=== PATIENT | female | born 1955 | race Caucasian/White ===

== ENCOUNTER 2021-03-22 11:20 | Inpatient (IN) | payer OTHER, SELFPAY ==
[2021-03-22 11:21] VITALS: BP 141/85; PULSE 112; RESP 18; TEMP 36.4; O2SAT 99; BMI 20.5
--- NOTE | 2021-03-22 11:45 | EX.ED.UPPERE ---
HPI History of Present Illness Chief Complaint: Wound Informant: patient Onset/Context/Timing Onset: Days (2) Context: Gradual Onset (Spontaneous without injury) Timing: Continuous Quality of Pain: Throbbing Location: Left ring finger into hand and wrist Current Severity: Moderate Maximum Severity: Severe Worsened by: Movement, palpation Relieved by: Remaining still in leaving alone Associated Symptoms Associated Symptoms: Negative for Parasthesia, Weakness and Loss of Funtion Narrative Narrative: Patient is on chemotherapy for breast cancer. She went in for treatment today, her oncologist saw her hand and sent her to the ER out of concern. She states it started at her nail, just some pain and a little sore, she did not pull any skin off or injure her nail in any way, and over 2 days it progressed quickly to the base of her finger and now into her hand and wrist. She denies any fevers or chills, but she is feeling very malaised and worse than usual. [id number]. [facility] Medical History (Updated 03/22/21 @ 14:[address] Mikey Rosas MD) Breast cancer Home Medications ergocalciferol (vitamin D2) 1,250 mcg PO TH 03/22/21 [History Last Taken 03/18/21] Allergy/AdvReac Type Severity Reaction Status Date / Time No Known Allergies Allergy Verified 03/22/21 12:24 Social History Smoking Status: Light Smoker (<10/day) ROS ROS ED Constitutional Constitutional ED: Reports fatigue and malaise; Denies chills or fever(s) Eyes Eyes: Denies change in vision or diplopia ENT ENT ED: Denies rhinorrhea or sore throat Cardiovascular Cardiovascular: Denies chest pain or palpitations Respiratory/Chest Respiratory/Chest: Denies cough or dyspnea Gastrointestinal Gastrointestinal: Reports diarrhea; Denies abdominal pain, nausea or vomiting Genitourinary Genitourinary ED: Denies dysuria or hematuria Musculoskeletal Musculoskeletal: Denies back pain or neck pain Integumentary Denies abscess or rash Neurologic Neurologic: Denies headache(s), paresthesias or weakness Psychiatric Psychiatric: Denies anxiety or suicidal thoughts EXAM Physical Exam Const Vital Signs: 03/22/21 11:21 Temperature 97.5 F L Temperature Source Temporal Pulse Rate 112 H Respiratory Rate 18 Blood Pressure 141/85 H Blood Pressure Mean 103 Pulse Ox 99 Oxygen Delivery Method Room Air Positive well nourished and well developed General Appearance ED: well developed and NAD HEENT Reports moist mucous membranes normocephalic and atraumatic Eyes PERRL and EOMs intact bilaterally Neck full ROM and supple Resp normal respiratory effort and clear to auscultation bilaterally Cardio regular rate, regular rhythm and no murmurs GI non-tender and non-distended Auscultation: normoactive bowel sounds Palpation: soft Back/Spine no CVA tenderness General Back: other FROM Extremity Extremity Narrative: Extremely swollen left ring finger with bulla formation with some purpura within it, that spirals from the right side of the nail base all the way to the MCPJ, along with erythema that progresses to the dorsum of the hand from the ring finger, and into the wrist. Very limited range of motion of the ring finger which is held in mild flexion and limited range of motion of the wrist due to pain there. Good range of motion of other fingers relatively. General Extremety ED: Yes edema and tenderness; Negative for pulses abnormal General Extremity: edema; Negative for pulses abnormal Neuro oriented x3, CN's II-XII intact bilaterally and no sensory deficits noted Sensorium / Orientation: awake and alert Motor Exam: strength 5/5 throughout Skin no rashes or lesions noted and no wounds Skin Narrative: Very swollen left ring finger, bulla formation with fluid fluctuant within it. Appears to have started as a paronychia radial aspect, patient confirms pain started there. Possible abscess formation. Swelling limits exam. No abscess in hand or wrist, but cellulitis extends to the wrist area without epitrochlear lymphadenopathy. MDM MDM MDM Narrative Medical decision making narrative: The patient does not have eden cellulitis over her left wrist, so she was amenable to an arthrocentesis because she is having such a limited range of motion I wanted to rule out a septic arthritis given the hot hand and wrist. No fluid was able to be obtained. The paronychia was drained, large amount of purulent material. Given the bulla formation, immunocompromise state, and significant spread of this infection up toward the wrist, she was given vancomycin and plan will be to admit. She does not appear to be septic according to the blood work and her clinical appearance. However, she did develop a fever of 101.4 while she was here. This was treated, blood cultures were already obtained prior to starting vancomycin. Discussed also with Dr. Brown in addition to medicine team, who will consult. Procedures Other Procedures Procedure(s): Digital block left ring finger: 7 cc plain 1% lidocaine dorsal approach with isopropanol prep, good anesthesia obtained. No complications tolerated well. I&D left ring finger paronychia: After digital block as above, using a #11 blade, partial-thickness stab incision was made at the radial aspect base of the nail. Large amount of purulent material expressed, the entire contents of the bulla back to the MCP J contained purulent bloody material which was also expressed. Soaked afterwards, dressed, no space in order to pack. Tolerated well no complications. Arthrocentesis left wrist: 1 cc local 1% lidocaine plain after isopropanol prep, further chlorhexidine prep, dorsal approach through anesthetized area into the radiocarpal joint, no fluid aspirated. Needle withdrawn, bandage placed tolerated well no complications. Discharge Plan Dx/Rx/DC Orders Clinical Impression: Paronychia of left ring finger, Cellulitis of left hand, Acquired immunocompromised state, History of breast cancer Disposition Disposition: Acute Care [facility]
--- NOTE | 2021-03-22 12:25 | RAD_ITS ---
STUDY: X-RAY - LEFT HAND REASON FOR EXAM: Female, 65 years old. Severe pain. Wound overlying the fourth digit with redness and swelling. TECHNIQUE: 3 view(s) of the hand. COMPARISON: None. FINDINGS: Normal radiocarpal articulation. Normal distal radioulnar joint. Normal visualized carpal bones. Normal carpal articulations Normal carpometacarpal articulation of the thumb. Normal second through fifth carpometacarpal joints. Normal metacarpi. Normal metacarpophalangeal joint of the thumb. Normal interphalangeal joint of the thumb. Normal proximal and distal phalanges of the thumb. Normal metacarpophalangeal joints of the second through fifth fingers. Flexion deformity at the proximal interphalangeal joints of the fourth and fifth digits due to severe pain. Normal phalanges of the second through fifth fingers. Soft tissue swelling. RAD/Hand Min 3 Views IMPRESSION: Flexion deformity at the level of the proximal interphalangeal joints of the fourth and fifth digits. Soft tissue swelling. Electronically Signed: Dagoberto Goyal MD at 13:05 EST ,
[2021-03-22 12:30] LABS: Absolute Lymphocyte Count 0.44 X10^3/uL (0.83-4.51); Absolute Neutrophil Count 7.2 X10^3/uL (2.0-7.7); Basophil# 0.04 X10^3/uL; Basophil% 0.5 % (0-1); Hemoglobin 11.5 g/dL (12.0-15.0); Lymphocyte # 0.44 X10^3/ul (0.83-4.51); Lymphocyte % 5.3 % (19-41); Mean Corp Hgb Conc 34.8 g/dL (32-36); Mean Corpuscular Hgb 36.9 pg (27.0-32.0); Mean Corpuscular Volume 105.8 fL (81-99); Mean Platelet Vol. 10.3 fl (6.2-12.0); Monocyte# 0.59 X10^3/uL; Monocyte% 7.1 % (0-10); NRBC Flagged by Analyzer 0 % (0-5); Neutrophil # 7.23 X10^3/uL (2.7-7.7); Neutrophil % 86.4 % (47-70); POSITIVE DIFFERENTIAL YES; Platelet Count 158 K/mm3 (150-450); RBC Distribution Width CV 13.3 % (11.6-14.6); Red Blood Count 3.12 M/mm3 (4.2-5.4); White Blood Count 8.4 K/mm3 (4.4-11.0)
[2021-03-22 12:31] LABS: Differential Indicated SCAN CRITERIA MET
[2021-03-22 12:35] LABS: ALB/GLOB Ratio 0.9 RATIO (0.9-2.4); AST(SGOT) 16 U/L (15-37); Alanine Aminotransfer ALT/SGPT 29 U/L (13-56); Albumin, Serum 3.1 g/dL (3.2-5.0); Alkaline Phosphatase 82 U/L (45-117); Anion Gap 7 (5-15); BUN 15 mg/dL (7-18); BUN/Creat Ratio 28.9 RATIO (10-20); Calcium,Total 8.5 mg/dL (8.5-10.1); Chloride 101 mmol/L (98-107); Creatinine, Serum 0.52 mg/dL (0.55-1.02); EST Glomerular Filtration Rate 127 mL/min (>60); Est Glom Filt Rate - Afr Amer 153 mL/min (>60); Estimated Creatinine Clearance 87.58 ml/min; Globulin 3.5 g/dL (2.2-4.2); Glucose 128 mg/dL (74-106); Potassium 3.5 mmol/L (3.5-5.1); Protein, Total 6.6 g/dL (6.4-8.2); Sodium Level 131 mmol/L (136-145)
[2021-03-22 12:42] LABS: International Normalized Ratio 1.1; Prothrombin Time (Protime)PT. 13.2 SECONDS (11.7-14.9)
[2021-03-22 12:44] LABS: Partial Thromboplast Time 30.7 Seconds (24.1-36.2)
[2021-03-22 13:12] VITALS: BP 148/69; PULSE 106; RESP 18; TEMP 36.9; O2SAT 99
[2021-03-22] MEDS: Lidocaine 1% (20 ml mdv) 20 ML Vial INFILT (14:00)
[2021-03-22 14:50] VITALS: BP 137/92; PULSE 111; RESP 16; TEMP 38.6; O2SAT 98
--- NOTE | 2021-03-22 15:03 | NURSING ---
PAGED DR PRICE [phone], [phone]. CALLED OFFICE AND LEFT MESSAGE [phone]
--- NOTE | 2021-03-22 15:25 | NURSING ---
MED SURG NUAMAH PARONYCHIA, CELLULITIS LUE, IMMUNOCOMPRISED STATE, HX BR CA
--- NOTE | 2021-03-22 15:35 | CASEMGMT ---
RN CM to room to meet with patient for initial transition planning/care coordination assessment. DAVID MORENO introduced self and role at [facility]. Patient voices understanding and consents to assessment at this time. No visitors present. Patient is alert and oriented, sitting up on ER cart in no apparent distress and answers all questions appropriately. Care providers, pharmacy, and demographics verified/updated at this time. Admitting Dx: Paronychia, cellulitis LUE, immunocompromised states, Hx breast cancer PCP: None. [facility] Healthcare Provider Directory provided to patient. Specialists: Pritesh- oncology Preferred Pharmacy: [facility] Insurance: [employer] Prescription Benefit: None. Patient reports staff member at [facility] oncology office has assisted patient to obtain $4,000 prescription assistance through [employer] for the year of 2021. Living Will/HPOA: Patient denies having living will or HPOA. LNOK: Sister Laura Gonsalez Living Arrangements: Patient lives with roommate Lopez in second story apartment with 13 steps to enter the home with a handrail present. Patient states independent with ADLs prior to hospitalization. Patient is currently employed full-time at [employer]. Smoking/ETOH: Current smoker (1/2 ppd), denies ETOH use, reports smokes medical marijuana multiple times/week Transportation: Patient drives self and denies transportation concerns. DME/HHC/SNF: Patient denies having any DME in the home and denies need for DME at this time. Denies previous HHC or SNF stays Patient currently undergoing chemotherapy, last treatment 03/17/21. Patient has no concerns with going home at time of discharge. Patient asks about cost of medications at discharge and made aware RN CM will follow for prescription needs/resources. CM to follow for any discharge planning/needs. Patient voices no concerns/needs at this time. Advised patient to ask for CM if any questions/concerns/needs arise. Voices understanding. Plan: home
--- NOTE | 2021-03-22 15:38 | PCM.HP.STD ---
Documented by User: Kathy Rubin NP, [employer]IATE-C 03/22/21 16:24 HPI - General General Date of Admission: 03/22/21 HPI Narrative ERICA ALBERTO, is a 65 F who presents to the emergency room due to left hand wound. Patient states her left ring finger nail bed was sore 2 days ago. No noted injury. Patient states over 2 days her left hand became increasingly red and swollen and is now moving up her arm. She was seen by oncologist who referred her to the emergency room for further evaluation. She is on chemotherapy for breast cancer and states she has 4 treatments left. She denies prior infections or complications related to chemo. She denies fever, chills. She reports left hand pain. Reports general malaise. Denies drainage from left finger or hand. She reports a past medical history of breast cancer, undergoing chemotherapy as well as tobacco dependence. Denies other medical history. [facility] Medical History Breast cancer Port-A-Cath in place Smoker Home Medications ergocalciferol (vitamin D2) 1,250 mcg PO TH 03/22/21 [History Last Taken 03/18/21] Allergy/AdvReac Type Severity Reaction Status Date / Time No Known Allergies Allergy Verified 03/22/21 12:24 Family History (Updated 03/22/21 @ 15:49 by Kathy Rubin NP, [employer]IATE-C) Mother Cancer Father Cancer Surgical History H/O tubal ligation History of bunionectomy Social History (Updated 03/22/21 @ 16:13 by Kathy Rubin NP, COMM[employer]OCIATE-C) Smoking Status: Current every day smoker tobacco type: cigarettes alcohol intake: never substance use type: does not use ROS Constitutional Constitutional: Reports malaise; Denies change in weight, chills, fatigue, fever(s) or weakness Cardiovascular Cardiovascular: Denies chest pain, edema, lightheadedness, palpitations or syncope Respiratory/Chest Respiratory/Chest: Denies cough, dyspnea, productive cough, shortness of breath at rest, shortness of breath with exertion or wheezing Gastrointestinal Gastrointestinal: Denies abdominal pain, constipation, diarrhea, nausea or vomiting Genitourinary Genitourinary: Denies burning urination, difficulty urinating, dysuria, hematuria, urinary frequency, urinary incontinence or urinary urgency Musculoskeletal Musculoskeletal: Denies back pain, joint pain or muscle weakness Integumentary Integumentary: Reports other Details: Paronychia left ring finger, left hand redness and swelling ; Denies erythema, lesions or rash Neurologic Neurologic: Denies abnormal speech, confusion, dizziness, focal weakness, numbness, paresthesias, seizure-like activity or syncope Psychiatric Psychiatric: Denies anxiety or depression Hematologic/Lymphatic Hematologic/Lymphatic: Denies anemia, easy bleeding or easy bruising Allergic/Immunologic Allergic/Immunologic: Denies hives or asthma Vital Signs Vital Signs Vital Signs: 03/22/21 11:21 03/22/21 13:12 03/22/21 13:13 Temperature 97.5 F L 98.4 F Temperature Source Temporal Temporal Pulse Rate 112 H 106 H Respiratory Rate 18 18 Blood Pressure 141/85 H 148/69 H Blood Pressure Mean 103 95 Pulse Ox 99 99 Oxygen Delivery Method Room Air Room Air Room Air 03/22/21 14:50 Temperature 101.4 F H Temperature Source Temporal Pulse Rate 111 H Respiratory Rate 16 Blood Pressure 137/92 H Blood Pressure Mean 107 Pulse Ox 98 Oxygen Delivery Method Room Air Weight Weight: 112 lb Body Mass Index (BMI) 20.5 Physical Exam Const alert, oriented x3 and no apparent distress Orientation / Consciousness: awake, oriented to person, oriented to place and oriented to time Nutritional Appearance: cachectic HEENT normocephalic and moist oral mucous membranes Eyes PERRL, EOMs intact bilaterally and conjunctivae normal Neck no lymphadenopathy Resp normal respiratory effort and clear to auscultation bilaterally Cardio regular rhythm and no murmurs Rate: tachycardic Peripheral Pulses: pulses 2+ throughout GI normal to inspection, nondistended, normoactive bowel sounds, non-tender and non-distended Extremity normal to inspection Skin Skin Narrative: Left finger paronychia with left hand erythema, warmth and swelling as well as ring finger bulla formation. Lesions: no lesions Rashes: no rashes Trauma: no lacerations or abrasions Neuro CN's II-XII intact bilaterally, no focal motor deficits, no sensory deficits noted and deep tendon reflexes 2+ bilaterally Psych mental status grossly normal and affect normal Results Lab / Micro Data Result Diagrams: 03/22/21 12:10 03/22/21 12:10 Labs: Laboratory Results - last 24 hr 03/22/21 12:10: WBC 8.4, RBC 3.12 L, Hgb 11.5 L, Hct 33.0 L, MCV 105.8 H, MCH 36.9 H, MCHC 34.8, RDW Std Deviation 51.0 H, RDW Coeff of Eliseo 13.3, Plt Count 158, MPV 10.3, Immature Gran % (Auto) 0.700, Neut % (Auto) 86.4 H, Lymph % (Auto) 5.3 L, [place] % (Auto) 7.1, Eos % (Auto) 0.0, Baso % (Auto) 0.5, Absolute Neuts (auto) 7.2, Absolute Lymphs (auto) 0.44 L, Nucleated RBC % 0 03/22/21 12:10: PT 13.2, INR 1.1, APTT 30.7 03/22/21 12:10: Sodium 131 L, Potassium 3.5, Chloride 101, Carbon Dioxide 23.0, Anion Gap 7, BUN 15, Creatinine 0.52 L, Estim Creat Clear Calc 87.58, Est GFR (MDRD) Af Amer 153, Est GFR (MDRD) Non-Af 127, BUN/Creatinine Ratio 28.9 H, Glucose 128 H, Calcium 8.5, Total Bilirubin 1.40 H, AST 16, ALT 29, Alkaline Phosphatase 82, Total Protein 6.6, Albumin 3.1 L, Globulin 3.5, Albumin/Globulin Ratio 0.9 03/22/21 12:10: Lactic Acid 1.0 Radiology Impression Hand X-Ray 03/22/21 12:25 IMPRESSION: Flexion deformity at the level of the proximal interphalangeal joints of the fourth and fifth digits. Soft tissue swelling. Electronically Signed: Dagoberto Goyal MD at 13:05 EST , Assessment & Plan Assessment/Plan (1) Cellulitis of left hand: PLAN: 1. Sepsis secondary to left hand cellulitis, left ring finger paronychia-left wrist arthrocentesis performed in ER with no fluid aspirated. Hand x-ray with soft tissue swelling. Blood cultures and wound cultures pending from ER. IV Vanco and IV Zosyn. ID and plastic consult. As needed pain regimen. 2. Breast cancer, undergoing chemotherapy- Follows with Dr. Jonas. DVT prophylaxis- Lovenox wi This patient was seen by [facility] under the supervision of Dr. Alvarez. Time spent examining patient, reviewing data and subsequent management of care: 17 min Documented by User: Dr. Sharmin Alvarez MD 03/22/21 19:26 HPI - General General Date of Admission: 03/22/21 PFS Medical History Breast cancer Port-A-Cath in place Smoker Home Medications ergocalciferol (vitamin D2) 1,250 mcg PO TH 03/22/21 [History Last Taken 03/18/21] Allergy/AdvReac Type Severity Reaction Status Date / Time No Known Allergies Allergy Verified 03/22/21 12:24 Family History (Updated 03/22/21 @ 15:49 by Kathy Rubin NP, [employer] ASSOCIATE-C) Mother Cancer Father Cancer Surgical History H/O tubal ligation History of bunionectomy Social History (Updated 03/22/21 @ 16:13 by Kathy Rubin NP, COMMER[employer]STATE ASSOCIATE-C) Smoking Status: Current every day smoker tobacco type: cigarettes alcohol intake: never substance use type: does not use Results Lab / Micro Data Result Diagrams: 03/22/21 12:10 03/22/21 12:10 Charges/Coding Addendum Addendum: This patient was seen in conjunction with Kathy Rubin NP. I have independently interviewed and examined the patient and reviewed pertinent historical, laboratory, and other data. I have reviewed her note and concur with her documentation 55-year-old female who presented with left hand pain, swelling and wound. Patient gives a history of a left ring finger of feeling soft. She cannot say if she tried to squeeze it or move the nail. She noticed over the last 2 days her left hand has become increasingly swollen and red. She was referred to the emergency room by her oncologist. Vitals: Blood pressure 128/65, heart rate 94, SPO2 is 99% on room air, temperature 98.4 F Physical Exam: Gen: Comfortable, not pale, not jaundiced, appears cachectic, frail CVS:HS I +II, regular, no murmurs RESP: Diminished at lung bases GI: BS present and normal, soft, nontender, no palpable organs EXT: Left finger paronychia with left hand erythema, warmth and swelling as well as a dark ring finger bullae formation extending onto the meta phalangeal region Labs: WBC count is 8.4, Hb is 11.5, platelet count is 158 INR is 1.1, sodium is 130, BUN is 15, creatinine 0.52, lactic acid 1.3, with Sublimaze 1.40, otherwise LFTs unremarkable ASSESSMENT: 1. Acute cellulitis/probable abscess of the left fourth finger/hand 2. Breast CA, undergoing chemotherapy Plan: Admit to PCU, gentle IV fluid IV vancomycin and Zosyn Plastic surgery consult Repeat labs in a.m. Time spent taking patient's history, physical examination had, coordinating patient's care, discussing with plastic surgery and nursin minutes Visit Charges Inpatient E&M: 16999 Init Hosp L3
[2021-03-22 15:56] VITALS: BP 137/92; PULSE 111; RESP 16; TEMP 38.6; O2SAT 98
[2021-03-22] MEDS: Acetaminophen 500 MG Tablet 1000 MG PO (15:56)
[2021-03-22 16:42] VITALS: BMI 20.4
[2021-03-22 17:02] VITALS: BP 128/65; PULSE 94; RESP 16; TEMP 36.9; O2SAT 99
--- NOTE | 2021-03-22 17:14 | PCM.RX.CS ---
Consult Pharmacy has been consulted to manage selected antiobiotic: Vancomycin Type of Consult: New start Suspected Infection: Skin/Soft tissue Labs: Sodium 131 mmol/L (136-145) L 03/22/21 12:10 Potassium 3.5 mmol/L (3.5-5.1) 03/22/21 12:10 Chloride 101 mmol/L (98-107) 03/22/21 12:10 Carbon Dioxide 23.0 mmol/L (21.0-32.0) 03/22/21 12:10 Anion Gap 7 (5-15) 03/22/21 12:10 BUN 15 mg/dL (7-18) 03/22/21 12:10 Creatinine 0.52 mg/dL (0.55-1.02) L 03/22/21 12:10 Est GFR (MDRD) Af Amer 153 mL/min (>60) 03/22/21 12:10 Est GFR (MDRD) Non-Af 127 mL/min (>60) 03/22/21 12:10 BUN/Creatinine Ratio 28.9 RATIO (10-20) H 03/22/21 12:10 Glucose 128 mg/dL (74-106) H 03/22/21 12:10 Goal Trough: 10-15 mcg/mL Pharmacy Plan for Drug Dosing: NEW START IV VANCOMYCIN Consulting Physician: Hawk Rubin NP Indication: Cellulitis Goal Trough: 10-15 SrCr: 0.52 CrCl: 87 mL/min Comments: Had 750mg IV X1 dose in the ED 03/22 @1359 Vancomcyin Dose: 500mg IV Q12h to start 03/23/21 @0200 Pending Level: 03/24/21 @0130, prior to 4th total dose per protocol Pharmacy Service will continue to monitor and adjust dosing as required.
[2021-03-22] MEDS: 0.9% Normal Saline 1,000 ML 75 ML IV (17:25)
[2021-03-22 22:09] VITALS: BP 121/75; PULSE 91; RESP 16; TEMP 36.7; O2SAT 98
--- NOTE | 2021-03-22 23:16 | PCM.CONS.GEN ---
Assessment & Plan Assessment/Plan (1) Cellulitis of left hand: (2) Paronychia of left ring finger: (3) History of breast cancer: (4) Complication of chemotherapy: (5) Extensor tenosynovitis of left wrist: (6) Smoker: PLAN: Patient has a left hand infection of several day duration that has shown some improvement with IV antibiotics (Vancomycin, Zosyn, and Clindamycin). Patient has a history of breast cancer and is currently getting chemotherapy treatments (4 treatments left). However the infection has plateaued and the pain has worsened. Recommend operative intervention for incision and drainage and excisional debridement of left hand infection including drainage of paronychial infection and debridement of localized blistering on the dorsum left ring finger. If extensor tenosynovitis is present at the wrist level then an extensor tenosynovectomy will be performed. The incisions I make on the dorsum of the left hand will be left open and wound care started with Silver dressing changes. Would encourage range of motion exercises to minimize stiffness. As an outpatient, will set up OT for range of motion exercises, strengthening, and edema management. Surgery will be done under general anesthesia and tourniquet control. Will schedule it tomorrow. Anticipate increased metabolic demands. Check a Prealbumin and encourage nutritional supplementation with protein to help the healing process. Based on the operative cultures, antibiotic modification may be necessary. She is currently on Vancomycin and Zosyn. Patient was informed of the risks and complications of the procedure including alternatives to surgery. These were discussed with the patient personally. Patient voices understanding and wishes to proceed. Some of the risks and complications were included in a form from the [employer]. Encouraged patient to stop smoking as it may have deleterious effects on wound healing. HPI Consult Data Date of Consult: 03/22/21 PCP / Referring MD: Dr. Sharmin Alvarez MD Attending Care Provider: Dr. Sharmin Alvarez MD HPI Narrative Reason for Consultation: Left hand infection. HPI Narrative: ERICA ALBERTO, is a 65 year old woman who presents to the emergency room with increasing pain, and redness, and swelling in her left hand. She denied trauma. Patient states her left ring finger nail bed was sore 2 days ago with what appears to be a paronychia. Patient has breast cancer and is undergoing chemotherapy. She has 4 treatments left. She was seen by her Oncologist who recommended she go to the ED for further evaluation. She denies prior infections or complications related to chemo. She denies fever, chills. Reports general malaise. Denies drainage from left hand. Hand x-ray showed soft tissue swelling without evidence of soft tissue abscess or osteomyelitis. WBC was 8.4. She was started on Vancomycin and Zosyn and Clindamycin. I was asked to evaluate this patient for surgical options for treatment. An MRI of the extremity and hand is scheduled for tomorrow. PFSH Medical History Breast cancer Complication of chemotherapy Extensor tenosynovitis of left wrist Paronychia of left ring finger Port-A-Cath in place Smoker Home Medications ergocalciferol (vitamin D2) 1,250 mcg PO TH 03/22/21 [History Last Taken 03/18/21] Allergy/AdvReac Type Severity Reaction Status Date / Time No Known Allergies Allergy Verified 03/22/21 12:24 Family History Mother Cancer Father Cancer Surgical History H/O tubal ligation History of bunionectomy Social History Smoking Status: Current every day smoker tobacco type: cigarettes alcohol intake: never substance use type: does not use ROS ROS Narrative Constitutional: Reports malaise; Denies change in weight, chills, fatigue, fever(s) or weakness Cardiovascular: Denies chest pain, edema, lightheadedness, palpitations or syncope Respiratory/Chest: Denies cough, dyspnea, productive cough, shortness of breath at rest, shortness of breath with exertion or wheezing Gastrointestinal: Denies abdominal pain, constipation, diarrhea, nausea or vomiting Genitourinary: Denies burning urination, difficulty urinating, dysuria, hematuria, urinary frequency, urinary incontinence or urinary urgency Musculoskeletal: Denies back pain, joint pain or muscle weakness Integumentary: Reports other Details: Paronychia left ring finger, left hand redness and swelling ; Denies erythema, lesions or rash Neurologic: Denies abnormal speech, confusion, dizziness, focal weakness, numbness, paresthesias, seizure-like activity or Psychiatric: Denies anxiety or depression Hematologic/Lymphatic: Denies anemia, easy bleeding or easy bruising Allergic/Immunologic: Denies hives or asthma Physical Exam Narrative Const - alert, oriented x3 and no apparent distress HEENT - PERRL, EOMs intact bilaterally Neck - no cervical lymphadenopathy Resp - clear to auscultation bilaterally Cardio - regular rhythm and no murmurs, rate is tachycardic GI - soft, nondistended Extremity - Right hand dominant. Left ring finger paronychia with blistering. Left hand shows erythema, increased swelling, and increased warmth, tenderness to palpation left hand and wrist, suspect extensor tenosynovitis. Neuro - CN's II-XII intact bilaterally. Psych - mental status grossly normal and affect normal Lab / Micro Data Attestation: I reviewed the patient's lab results. Result Diagrams: 03/23/21 05:44 03/24/21 01:40 Labs: Laboratory Results - last 24 hr 03/22/21 12:10: WBC 8.4, RBC 3.12 L, Hgb 11.5 L, Hct 33.0 L, MCV 105.8 H, MCH 36.9 H, MCHC 34.8, RDW Std Deviation 51.0 H, RDW Coeff of Eliseo 13.3, Plt Count 158, MPV 10.3, Immature Gran % (Auto) 0.700, Neut % (Auto) 86.4 H, Lymph % (Auto) 5.3 L, [place] % (Auto) 7.1, Eos % (Auto) 0.0, Baso % (Auto) 0.5, Absolute Neuts (auto) 7.2, Absolute Lymphs (auto) 0.44 L, Nucleated RBC % 0 03/22/21 12:10: PT 13.2, INR 1.1, APTT 30.7 03/22/21 12:10: Sodium 131 L, Potassium 3.5, Chloride 101, Carbon Dioxide 23.0, Anion Gap 7, BUN 15, Creatinine 0.52 L, Estim Creat Clear Calc 87.58, Est GFR (MDRD) Af Amer 153, Est GFR (MDRD) Non-Af 127, BUN/Creatinine Ratio 28.9 H, Glucose 128 H, Calcium 8.5, Total Bilirubin 1.40 H, AST 16, ALT 29, Alkaline Phosphatase 82, Total Protein 6.6, Albumin 3.1 L, Globulin 3.5, Albumin/Globulin Ratio 0.9 03/22/21 12:10: Lactic Acid 1.0 Radiology Impression Hand X-Ray 03/22/21 12:25 IMPRESSION: Flexion deformity at the level of the proximal interphalangeal joints of the fourth and fifth digits. Soft tissue swelling. Electronically Signed: Dagoberto Goyal MD at 13:05 EST ,
[2021-03-23] VITALS (7 sets, daily range): BP systolic 132–161; BP diastolic 64–84; PULSE 91–102; RESP 16–18; TEMP 37.2–37.6; O2SAT 97–100
[2021-03-23] MEDS: oxyCODONE 5 MG Tablet PO ×3 (01:42→21:42)
[2021-03-23] MEDS: Vancomycin IV 500 MG/100 ML BAG 100 MG IV ×2 (01:43→15:31)
[2021-03-23] MEDS: Glycerin/Hypromellose/PEG400 15 ml Bottle 1 DRP EACH EYE (05:58)
[2021-03-23 06:26] LABS: Absolute Lymphocyte Count 0.74 X10^3/uL (0.83-4.51); Basophil# 0.03 X10^3/uL; Basophil% 0.5 % (0-1); Eosinophil# 0.01 X10^3/uL; Eosinophils% 0.2 % (0-5); Hematocrit 30.5 % (37-47); Hemoglobin 10.6 g/dL (12.0-15.0); Lymphocyte # 0.74 X10^3/ul (0.83-4.51); Lymphocyte % 11.9 % (19-41); Mean Corp Hgb Conc 34.8 g/dL (32-36); Mean Corpuscular Volume 109.3 fL (81-99); Mean Platelet Vol. 10.9 fl (6.2-12.0); Monocyte% 6.5 % (0-10); NRBC Flagged by Analyzer 0 % (0-5); Neutrophil # 4.96 X10^3/uL (2.7-7.7); Neutrophil % 79.9 % (47-70); Platelet Count 156 K/mm3 (150-450); RBC Distribution Width CV 13.3 % (11.6-14.6); RBC Distribution Width SD 53.2 fl (35.1-43.9); Red Blood Count 2.79 M/mm3 (4.2-5.4); White Blood Count 6.2 K/mm3 (4.4-11.0)
[2021-03-23 07:05] LABS: ALB/GLOB Ratio 0.8 RATIO (0.9-2.4); AST(SGOT) 16 U/L (15-37); Alanine Aminotransfer ALT/SGPT 25 U/L (13-56); Albumin, Serum 2.6 g/dL (3.2-5.0); Alkaline Phosphatase 80 U/L (45-117); Anion Gap 5 (5-15); BUN 14 mg/dL (7-18); BUN/Creat Ratio 32.8 RATIO (10-20); Calcium,Total 8.1 mg/dL (8.5-10.1); Chloride 103 mmol/L (98-107); Creatinine, Serum 0.43 mg/dL (0.55-1.02); EST Glomerular Filtration Rate 159 mL/min (>60); Est Glom Filt Rate - Afr Amer 192 mL/min (>60); Estimated Creatinine Clearance 105.91 ml/min; Globulin 3.4 g/dL (2.2-4.2); Glucose 89 mg/dL (74-106); Potassium 3.2 mmol/L (3.5-5.1); Sodium Level 133 mmol/L (136-145)
[2021-03-23] MEDS: Acetaminophen 325 MG Tablet 650 MG PO ×2 (08:37→21:41)
--- NOTE | 2021-03-23 09:03 | CASEMGMT ---
According to [employer] website, the following tertiary facilities are in network: [place], [facility], [facility], [facility], [facility] and .
--- NOTE | 2021-03-23 09:06 | CT_ITS ---
STUDY: CT LEFT HAND/WRIST WITH CONTRAST REASON FOR EXAM: Swelling, pain, redness and blistering of left hand. TECHNIQUE: Transaxial CT imaging of the hand/wrist was performed during intravenous administration of 100 mL of ISOVUE-300. Coronal and sagittal images were reformatted. Individualized dose optimization techniques were used for this CT. COMPARISON: Radiographs 03/22/2021. FINDINGS: There is a soft tissue ulceration at the distal aspect of the fourth digit (sagittal reconstruction 23). There is soft tissue swelling mostly at the dorsal aspect of the fourth digit (sagittal reconstructions 22-28; coronal reconstructions 18-33) without peripheral contrast enhancing focal fluid collection to suggest soft tissue abscess. There is no osseous destruction of the phalanges to indicate osteomyelitis. There are no erosive changes of the interphalangeal joints. There is flexion of the second through fifth digits at the proximal interphalangeal joints. There is a cyst in the head of the first metacarpal (sagittal reconstruction 38) measuring 0.8 cm in length. Otherwise, unremarkable metacarpals. Normal metacarpophalangeal joints. Normal carpometacarpal articulations. There is joint space narrowing of the triscaphe articulation (sagittal reconstructions 25, 26). There is a small cyst in the proximal palmar capitate (sagittal reconstruction 21). There is no osseous destruction of the carpal bones or distal radius, distal ulna. CT/Extremity Upper WITH Contrast IMPRESSION: Soft tissue swelling without demonstrated soft tissue abscess or osteomyelitis. Triscaphe arthrosis. Electronically Signed: Deuce Hidalgo MD at 11:13 EST ,
--- NOTE | 2021-03-23 11:15 | DS.PCM_ITS ---
Documented by User: Kathy Rubin NP, [employer] 03/23/21 11:24 Providers Date of Admission: 03/22/21 Date of Discharge: 03/23/21 Primary Care Physician: Dorothy Primary Care Phys Consultations 03/22/21 16:40 Consult: Infectious Disease Routine Consulting Provider: Steven Lazo Reason for Consult: Left hand wound EMERGENT Consult: No MD Notified: Yes Date Notified: 03/23/21 Time Notified: 03:46 Method of Notification: Answering Service Consult: Onc/Wound/spanisher Routine Comment: Consult: Plastic Surgery Routine Consulting Provider: Rafa Brown Reason for Consult: Left hand wound EMERGENT Consult: No MD Notified: Yes Date Notified: 03/22/21 Time Notified: 15:39 Method of Notification: Verbal Comments:: Notified by ED Reason For Visit: CELLULITIS / SEPSIS Diagnosis Discharge Diagnosis (1) Cellulitis of left hand: Status: Acute Code(s): L03.114 - Cellulitis of left upper limb Medications at Discharge Home Medications ergocalciferol (vitamin D2) 1,250 mcg PO TH 03/22/21 Hospital Course Operations None Procedures None Summary of Care Provided Hospital Course: Patient is a 65-year-old female admitted 03/22/2021 due to left hand redness and swelling. 1. Sepsis secondary to left hand cellulitis, left ring finger paronychia-left wrist arthrocentesis performed in ER with no fluid aspirated. Hand x-ray with soft tissue swelling. CT shows soft tissue swelling without soft tissue abscess or osteomyelitis. Blood cultures and wound cultures pending. IV Vanco, IV Zosyn and IV clindamycin. ID and plastic consult. As needed pain regimen. Due to progressively worsening appearance, patient transferred to [facility] for further management and intervention. Accepted by oncology/hand surgery. 2. Breast cancer, undergoing chemotherapy- Follows with Dr. Jonas. 3. Tobacco dependence-encouraged cessation. Physical Exam Const alert, oriented x3 and no apparent distress Orientation / Consciousness: awake, oriented to person, oriented to place and oriented to time Nutritional Appearance: cachectic HEENT normocephalic and moist oral mucous membranes Eyes PERRL, EOMs intact bilaterally and conjunctivae normal Neck no lymphadenopathy Resp normal respiratory effort and clear to auscultation bilaterally Cardio regular rhythm and no murmurs Rate: tachycardic Peripheral Pulses: pulses 2+ throughout GI normal to inspection, nondistended, normoactive bowel sounds, non-tender and non-distended Extremity normal to inspection Skin Skin Narrative: Left finger paronychia with left hand erythema, warmth and swelling as well as ring finger bulla formation. Progressed from prior exam. Lesions: no lesions Rashes: no rashes Trauma: no lacerations or abrasions Neuro CN's II-XII intact bilaterally, no focal motor deficits, no sensory deficits noted and deep tendon reflexes 2+ bilaterally Psych mental status grossly normal and affect normal Patient seen and examined prior to discharge. Physical assessment as noted above. Patient is stable for discharge with follow up recommendations as noted above. This patient was seen by YOON Coto under the supervision of Dr. Simpson. Weight / BMI Weight Weight: 111 lb 8 oz Body Mass Index (BMI) 20.4 ABG / Lab / Microbiology Data Result Diagrams: 03/23/21 05:44 03/23/21 05:44 Laboratory: Laboratory Results - last 24 hr 03/22/21 12:10: WBC 8.4, RBC 3.12 L, Hgb 11.5 L, Hct 33.0 L, MCV 105.8 H, MCH 36.9 H, MCHC 34.8, RDW Std Deviation 51.0 H, RDW Coeff of Eliseo 13.3, Plt Count 158, MPV 10.3, Immature Gran % (Auto) 0.700, Neut % (Auto) 86.4 H, Lymph % (Auto) 5.3 L, [place] % (Auto) 7.1, Eos % (Auto) 0.0, Baso % (Auto) 0.5, Absolute Neuts (auto) 7.2, Absolute Lymphs (auto) 0.44 L, Nucleated RBC % 0 03/22/21 12:10: PT 13.2, INR 1.1, APTT 30.7 03/22/21 12:10: Sodium 131 L, Potassium 3.5, Chloride 101, Carbon Dioxide 23.0, Anion Gap 7, BUN 15, Creatinine 0.52 L, Estim Creat Clear Calc 87.58, Est GFR (M DRD) Af Amer 153, Est GFR (MDRD) Non-Af 127, BUN/Creatinine Ratio 28.9 H, Glucose 128 H, Calcium 8.5, Total Bilirubin 1.40 H, AST 16, ALT 29, Alkaline Phosphatase 82, Total Protein 6.6, Albumin 3.1 L, Globulin 3.5, Albumin/Globulin Ratio 0.9 03/22/21 12:10: Lactic Acid 1.0 03/23/21 05:44: WBC 6.2, RBC 2.79 L, Hgb 10.6 L, Hct 30.5 L, MCV 109.3 H, MCH 38.0 H, MCHC 34.8, RDW Std Deviation 53.2 H, RDW Coeff of Eliseo 13.3, Plt Count 156, MPV 10.9, Immature Gran % (Auto) 1.000 H, Neut % (Auto) 79.9 H, Lymph % (Auto) 11.9 L, [place] % (Auto) 6.5, Eos % (Auto) 0.2, Baso % (Auto) 0.5, Absolute Neuts (auto) 5.0, Absolute Lymphs (auto) 0.74 L, Nucleated RBC % 0 03/23/21 05:44: Sodium 133 L, Potassium 3.2 L, Chloride 103, Carbon Dioxide 25.0, Anion Gap 5, BUN 14, Creatinine 0.43 L, Estim Creat Clear Calc 105.91, Est GFR (MDRD) Af Amer 192, Est GFR (MDRD) Non-Af 159, BUN/Creatinine Ratio 32.8 H, Glucose 89, Calcium 8.1 L, Total Bilirubin 0.80, AST 16, ALT 25, Alkaline Phosphatase 80, Total Protein 6.0 L, Albumin 2.6 L, Globulin 3.4, Album in/Globulin Ratio 0.8 L Microbiology: Microbiology 03/22/21 13:50 Wound - Hand Gram Stain - Final 03/22/21 13:50 Wound - Hand Wound Culture - Preliminary Staphylococcus aureus 03/23/21 09:20 Nasal Secretion SARS-CoV-2 Antigen (Rapid) - Final Radiography Diagnostic Testing: Radiology Impression Hand X-Ray 03/22/21 12:25 IMPRESSION: Flexion deformity at the level of the proximal interphalangeal joints of the fourth and fifth digits. Soft tissue swelling. Electronically Signed: Dagoberto Goyal MD at 13:05 EST , Upper Extremity CT 03/23/21 09:06 IMPRESSION: Soft tissue swelling without demonstrated soft tissue abscess or osteomyelitis. Triscaphe arthrosis. Electronically Signed: Deuce Hidalgo MD at 11:13 EST Reading Location ID and State: [facility] / [place] Tel , Service support , Meaningful Use Info Meaningful Use Diagnoses (Choose all that apply): None applicable Discharge Plan Admission Admit Date/Time: 03/22/21 15:35 Primary Reason for Your Visit: Left hand cellulitis Attending Provider: Danielle Simpson Primary Care Provider: Care Physician,No Primary Consulting Providers: Rafa Brown ; Steven Lazo Discharge Orders/Prescriptions Prescriptions: No Action ergocalciferol (vitamin D2) 1,250 mcg (50,000 unit) capsule 1,250 mcg PO TH RF: 0 Referrals / Follow Up: Care Physician,No Primary [Primary Care Provider] - Disposition Disposition (needs filled in before D/C Order can be placed): [facility] Documented by User: Dr. Danielle Simpson DO 03/23/21 12:08 Providers Date of Admission: 03/22/21 Reason For Visit: CELLULITIS / SEPSIS Medications at Discharge Home Medications ergocalciferol (vitamin D2) 1,250 mcg PO TH 03/22/21 Hospital Course Operations None Procedures - (CT of the hand) Summary of Care Provided Minutes Spent on Discharge: 45 Hospital Course: Mrs. Penaloza is a 65-year-old female with a history of breast who is currently immunocompromised as she is undergoing chemotherapy for her breast cancer who presented to the emergency department at [facility] on 03/22/2021 secondary to an left hand wound. On admission the patient reports that her left ring finger nailbed was for approximately 2 days prior to presentation with no noted injury and she noted that over the last 2 days her hand became progr essively swollen and erythematous and the pain and erythema is now moving up into her arm. She was seen by her oncologist who referred her to the emergency department for further evaluation. She is for further treatments left for chemotherapy. She denies any previous infections or complications related to her chemo. She has a Mediport in her right chest. She reported some general malaise drainage from the finger and hand and significant pain but had no fever or chills on presentation. She also admitted to tobacco abuse on admission. She was initially admitted to the medical floor and was initiated on vancomycin and Zosyn on the a.m. of 03/23/2021 the patient reported that her pain was worse and she felt that her hand looked worse today as well. Clindamycin was added at that time and a stat CT of her arm was ordered to rule out necrotizing fasciitis. It is also felt after reviewing her chart and discussing symptoms with the patient that transfer to a facility that has a hand surgeon on site would be most appropriate. At that time she stated that her first choice would be [facility] which was in neck work with her insurance. The CT of her hand showed soft tissue swelling without soft tissue abscess or osteomyelitis. Given there was no signs of necrotizing fasciitis the clindamycin was discontinued and she was maintained on vancomycin and Zosyn. She was accepted to [facility] for admission and further evaluation. A CD of the CT scan was to be sent on discharge so it could be reviewed by surgery at the accepting facility. Discharge diagnoses: Severe left hand cellulitis Tenosynovitis of the extensor tendons in the left arm Immunosuppression secondary to chemotherapy Breast cancer-active Tobacco abuse Physical Exam Const alert, oriented x3, no apparent distress, healthy appearing and well nourished Constitutional Narrative: Upper middle-aged white female who appears older than stated age, sitting up in bed, appears nontoxic and comfortable but unable to move her left hand well General Appearance: cooperative, comfortable, well kempt and well developed Orientation / Consciousness: awake Exam Limitations: no limitations HEENT normocephalic, head/scalp atraumatic, hearing grossly normal bilaterally and moist oral mucous membranes HEENT Narrative: Dentures in place, Mallampati is 1-2, no thrush Eyes PERRL, EOMs intact bilaterally and conjunctivae normal Eyes Narrative: No scleral icterus Neck no lymphadenopathy, supple and no JVD Neck Narrative: Trachea midline, no thyroid enlargement Resp normal respiratory effort, no retractions, no use of accessory muscles and clear to auscultation bilaterally Resp Narrative: Diffusely diminished but clear Auscultation: Negative for crackles, rales, rhonchi or wheezes Cardio regular rate, regular rhythm, S1 normal heart sound, S2 normal heart sound, no murmurs, no rub, no gallops, no clicks and no JVD GI normal to inspection, nondistended, normoactive bowel sounds, soft to palpation, non-tender and non-distended Extremity Extremity Narrative: No bilateral lower extremity clubbing or cyanosis/edema, left hand with edema/erythema most notably at the fourth digit with a large bullae at the MCP and tenderness into the wrist and into the distal to mid forearm most notably in the dorsum Skin skin turgor normal and no jaundice Skin Narrative: See above Neuro oriented x3, CN's II-XII intact bilaterally and no focal motor deficits Neuro Narrative: Limited movement in the left hand Sensorium / Orientation: awake and alert Speech: speech normal Psych affect normal Psych Narrative: Very pleasant, appropriately interactive ABG / Lab / Microbiology Data Result Diagrams: 03/23/21 05:44 03/23/21 05:44 Discharge Plan Admission Admit Date/Time: 03/22/21 15:35 Primary Reason for Your Visit: Left hand cellulitis Attending Provider: Danielle Simpson Primary Care Provider: Care Physician,No Primary Consulting Providers: Rafa Brown ; Steven Lazo Discharge Orders/Prescriptions Prescriptions: No Action ergocalciferol (vitamin D2) 1,250 mcg (50,000 unit) capsule 1,250 mcg PO TH RF: 0 Referrals / Follow Up: Care Physician,No Primary [Primary Care Provider] - Disposition Disposition (needs filled in before D/C Order can be placed): Acute Care H ospital Charges/Coding Visit Charges Inpatient E&M: 70663 Disch Hosp
--- NOTE | 2021-03-23 11:22 | PCM.CONS.GEN ---
Assessment & Plan Assessment/Plan (1) Paronychia of left ring finger: PLAN: Plastic surgery consulted. On vanc/zosyn, will stop clinda (no sign of necrotizing fasciitis or gas gangrene). Cxs pending, CT done which showed no osteo or abscess. Unvaccinated for covid, she agrees to receive 1st dose here. Will follow, thank you (2) Acquired immunocompromised state: HPI Consult Data Date of Consult: 03/23/21 HPI Narrative HPI Narrative: ERICA ALBERTO, is a 65 F on chemo for breast cancer, last dose about a week ago, presented with sx starting 03/20 with pain/redness of L 4th finger. Is R handed. No inciting events. No issues with R chest port. No fever or chills. Unvaccinated for covid. Had progressive inflammation, pain was moderate/severe and spread to wrist. Developed blistering. Came to ED, admitted on vanc/zosyn. Hand starting to feel better. Full ROS performed and neg except as noted above. PFSH Medical History Breast cancer Port-A-Cath in place Smoker Home Medications ergocalciferol (vitamin D2) 1,250 mcg PO TH 03/22/21 [History Last Taken 03/18/21] Allergy/AdvReac Type Severity Reaction Status Date / Time No Known Allergies Allergy Verified 03/22/21 12:24 Family History (Updated 03/22/21 @ 15:49 by Kathy Rubin [employer], [employer]GER-[employer]) Mother Cancer Father Cancer Surgical History H/O tubal ligation History of bunionectomy Social History (Updated 03/22/21 @ 16:13 by Kathy Rubin NP, [employer]) Smoking Status: Current every day smoker tobacco type: cigarettes alcohol intake: never substance use type: does not use Physical Exam Const alert, oriented x3 and no apparent distress General Appearance: cooperative Exam Limitations: no limitations HEENT normocephalic and head/scalp atraumatic Eyes PERRL and EOMs intact bilaterally Neck supple and No nodes Resp normal air movement and clear to auscultation bilaterally Cardio regular rate and regular rhythm GI soft to palpation, non-tender and non-distended Extremity no clubbing, cyanosis or edema Skin Skin Narrative: L 4th finger with diffuse swelling, pain, redness, and large bulla. L wrist limited ROM. R chest port no inflammation Neuro CN's II-XII intact bilaterally Lab / Micro Data Result Diagrams: 03/23/21 05:44 03/23/21 05:44 Labs: Laboratory Results - last 24 hr 03/22/21 12:10: WBC 8.4, RBC 3.12 L, Hgb 11.5 L, Hct 33.0 L, MCV 105.8 H, MCH 36.9 H, MCHC 34.8, RDW Std Deviation 51.0 H, RDW Coeff of Eliseo 13.3, Plt Count 158, MPV 10.3, Immature Gran % (Auto) 0.700, Neut % (Auto) 86.4 H, Lymph % (Auto) 5.3 L, Foster % (Auto) 7.1, Eos % (Auto) 0.0, Baso % (Auto) 0.5, Absolute Neuts (auto) 7.2, Absolute Lymphs (auto) 0.44 L, Nucleated RBC % 0 03/22/21 12:10: PT 13.2, INR 1.1, APTT 30.7 03/22/21 12:10: Sodium 131 L, Potassium 3.5, Chloride 101, Carbon Dioxide 23.0, Anion Gap 7, BUN 15, Creatinine 0.52 L, Estim Creat Clear Calc 87.58, Est GFR (MDRD) Af Amer 153, Est GFR (MDRD) Non-Af 127, BUN/Creatinine Ratio 28.9 H, Glucose 128 H, Calcium 8.5, Total Bilirubin 1.40 H, AST 16, ALT 29, Alkaline Phosphatase 82, Total Protein 6.6, Albumin 3.1 L, Globulin 3.5, Albumin/Globulin Ratio 0.9 03/22/21 12:10: Lactic Acid 1.0 03/23/21 05:44: WBC 6.2, RBC 2.79 L, Hgb 10.6 L, Hct 30.5 L, MCV 109.3 H, MCH 38.0 H, MCHC 34.8, RDW Std Deviation 53.2 H, RDW Coeff of Eliseo 13.3, Plt Count 156, MPV 10.9, Immature Gran % (Auto) 1.000 H, Neut % (Auto) 79.9 H, Lymph % (Auto) 11.9 L, Foster % (Auto) 6.5, Eos % (Auto) 0.2, Baso % (Auto) 0.5, Absolute Neuts (auto) 5.0, Absolute Lymphs (auto) 0.74 L, Nucleated RBC % 0 03/23/21 05:44: Sodium 133 L, Potassium 3.2 L, Chloride 103, Carbon Dioxide 25.0, Anion Gap 5, BUN 14, Creatinine 0.43 L, Estim Creat Clear Calc 105.91, Est GFR (MDRD) Af Amer 192, Est GFR (MDRD) Non-Af 159, BUN/Creatinine Ratio 32.8 H, Glucose 89, Calcium 8.1 L, Total Bilirubin 0.80, AST 16, ALT 25, Alkaline Phosphatase 80, Total Protein 6.0 L, Albumin 2.6 L, Globulin 3.4, Albumin/Globulin Ratio 0.8 L Micro: Microbiology 03/22/21 13:50 Wound - Hand Gram Stain - Final 03/22/21 13:50 Wound - Hand Wound Culture - Preliminary Staphylococcus aureus 03/23/21 09:20 Nasal Secretion SARS-CoV-2 Antigen (Rapid) - Final Radiology Impression Hand X-Ray 03/22/21 12:25 IMPRESSION: Flexion deformity at the level of the proximal interphalangeal joints of the fourth and fifth digits. Soft tissue swelling. Electronically Signed: Dagoberto Goyal MD at 13:05 EST , Upper Extremity CT 03/23/21 09:06 IMPRESSION: Soft tissue swelling without demonstrated soft tissue abscess or osteomyelitis. Triscaphe arthrosis. Electronically Signed: Deuce Hidalgo MD at 11:13 EST ,
[2021-03-23] MEDS: Potassium Chloride Oral Tablet 20 MEQ 40 MEQ PO (11:52)
[2021-03-23] MEDS: 0.9% Normal Saline 1,000 ML 75 ML IV (13:16)
[2021-03-23] MEDS: COVID-19 VACC, MRNA(PFIZER)/PF 30 MCG/0.3 ML SYRINGE IM (16:50)
[2021-03-24] VITALS (9 sets, daily range): BP systolic 125–165; BP diastolic 62–85; PULSE 62–91; RESP 12–20; TEMP 36.8–37.1; O2SAT 95–100
[2021-03-24 02:12] LABS: Vancomycin, Trough Level 6.1 ug/mL (5.0-15.0)
[2021-03-24 02:14] LABS: ALB/GLOB Ratio 0.8 RATIO (0.9-2.4); AST(SGOT) 15 U/L (15-37); Alanine Aminotransfer ALT/SGPT 21 U/L (13-56); Albumin, Serum 2.4 g/dL (3.2-5.0); Alkaline Phosphatase 71 U/L (45-117); Anion Gap 7 (5-15); BUN 9 mg/dL (7-18); BUN/Creat Ratio 19.6 RATIO (10-20); Chloride 107 mmol/L (98-107); Creatinine, Serum 0.46 mg/dL (0.55-1.02); EST Glomerular Filtration Rate 145 mL/min (>60); Est Glom Filt Rate - Afr Amer 176 mL/min (>60); Globulin 3.1 g/dL (2.2-4.2); Glucose 86 mg/dL (74-106); Potassium 3.3 mmol/L (3.5-5.1); Protein, Total 5.5 g/dL (6.4-8.2); Sodium Level 137 mmol/L (136-145)
[2021-03-24] MEDS: Vancomycin IV 500 MG/100 ML BAG 100 MG IV (02:32)
--- NOTE | 2021-03-24 04:44 | PCM.RX.CS ---
Consult Pharmacy has been consulted to manage selected antiobiotic: Vancomycin Type of Consult: Follow-up Labs: Sodium 137 mmol/L (136-145) 03/24/21 01:40 Potassium 3.3 mmol/L (3.5-5.1) L 03/24/21 01:40 Chloride 107 mmol/L (98-107) 03/24/21 01:40 Carbon Dioxide 23.0 mmol/L (21.0-32.0) 03/24/21 01:40 Anion Gap 7 (5-15) 03/24/21 01:40 BUN 9 mg/dL (7-18) 03/24/21 01:40 Creatinine 0.46 mg/dL (0.55-1.02) L 03/24/21 01:40 Est GFR (MDRD) Af Amer 176 mL/min (>60) 03/24/21 01:40 Est GFR (MDRD) Non-Af 145 mL/min (>60) 03/24/21 01:40 BUN/Creatinine Ratio 19.6 RATIO (10-20) 03/24/21 01:40 Glucose 86 mg/dL (74-106) 03/24/21 01:40 Vancomycin Trough 6.1 ug/mL (5.0-15.0) 03/24/21 01:40 Microbiology: Microbiology 03/22/21 13:50 Wound - Hand Gram Stain - Final 03/22/21 13:50 Wound - Hand Wound Culture - Preliminary Staphylococcus aureus 03/23/21 09:20 Nasal Secretion SARS-CoV-2 Antigen (Rapid) - Final Goal Trough: 10-15 mcg/mL Pharmacy Plan for Drug Dosing: Pharmacy Service will continue to monitor and adjust dosing as required. TROUGH 6.1 AT 10 HRS. INCREASE TO 1GM Q12H AND FOLLOW UP TROUGH PRIOR TO 4TH DOSE Follow-Up Labs: Trough Vancomycin Labs to be done on [date and time ordered]: 03/26 @ 9013
[2021-03-24] MEDS: 0.9% Normal Saline 1,000 ML 75 ML IV (10:03)
[2021-03-24] MEDS: Vancomycin IV 1,000 MG/200 ML BAG 200 MG IV (13:00)
--- NOTE | 2021-03-24 13:30 | PCM.PN.ID ---
Physical Exam Narrative Feeling better, hand and forearm still sore, no fever. Did get covid shot yesterday. Const alert and no apparent distress General Appearance: cooperative Resp normal air movement and clear to auscultation bilaterally Cardio regular rate and regular rhythm GI soft to palpation and non-tender Skin Skin Narrative: L hand wrapped, still redness, swelling, and limited ROM ID ID: Route of nutrition/ use of supplements: [] Nutritional Intake: [] IV Site: [] Jane Catheter: [] Assessment & Plan Assessment/Plan (1) Paronychia of left ring finger: PLAN: Plastic surgery consulted. On vanc/zosyn. Wound cx with mrsa. CT done which showed no osteo or abscess. Got first dose covid shot here 03/23/21. Will follow. Transfer planned. (2) Acquired immunocompromised state:
--- NOTE | 2021-03-24 13:54 | PCM.DC.SUM ---
Documented by User: Kathy Rubin NP, [employer]ER-C 03/24/21 15:12 Providers Date of Admission: 03/22/21 Date of Discharge: 03/24/21 Primary Care Physician: Dorothy Primary Care Phys Consultations 03/22/21 16:40 Consult: Infectious Disease Routine Consulting Provider: Steven Lazo Reason for Consult: Left hand wound EMERGENT Consult: No MD Notified: Yes Date Notified: 03/23/21 Time Notified: 03:46 Method of Notification: Answering Service Consult: Onc/Wound/customs consultant Routine Comment: Consult: Plastic Surgery Routine Consulting Provider: Rafa Brown Reason for Consult: Left hand wound EMERGENT Consult: No MD Notified: Yes Date Notified: 03/22/21 Time Notified: 15:39 Method of Notification: Verbal Comments:: Notified by ED Reason For Visit: CELLULITIS / SEPSIS Diagnosis Discharge Diagnosis (1) Paronychia of left ring finger: Status: Acute Code(s): L03.012 - Cellulitis of left finger (2) Acquired immunocompromised state: Status: Acute Code(s): D84.9 - Immunodeficiency, unspecified Medications at Discharge Home Medications ergocalciferol (vitamin D2) 1,250 mcg PO TH 03/22/21 Hospital Course Summary of Care Provided Hospital Course: Hospital Course: Patient is a 65-year-old female admitted 03/22/2021 due to left hand redness and swelling. 1. Left hand cellulitis, left ring finger paronychia-sepsis ruled out. Left wrist arthrocentesis performed in ER with no fluid aspirated. Hand x-ray with soft tissue swelling. CT shows soft tissue swelling without soft tissue abscess or osteomyelitis. Blood cultures pending. Wound culture growing MRSA. IV Vanco, IV Zosyn. ID and plastic consult. As needed pain regimen. Due to progressively worsening appearance, patient transferred to [facility] for further management and intervention. Accepted by oncology/hand surgery. 2. Breast cancer, undergoing chemotherapy- Follows with Dr. Jonas. 3. Tobacco dependence-encouraged cessation. Physical Exam Const alert, oriented x3 and no apparent distress Orientation / Consciousness: awake, oriented to person, oriented to place and oriented to time Nutritional Appearance: cachectic HEENT normocephalic and moist oral mucous membranes Eyes PERRL, EOMs intact bilaterally and conjunctivae normal Neck no lymphadenopathy Resp normal respiratory effort and clear to auscultation bilaterally Cardio regular rhythm and no murmurs Rate: tachycardic Peripheral Pulses: pulses 2+ throughout GI normal to inspection, nondistended, normoactive bowel sounds, non-tender and non-distended Extremity normal to inspection Skin Skin Narrative: Left finger paronychia with left hand erythema, warmth and swelling as well as ring finger bulla formation. Progressed from prior exam. Lesions: no lesions Rashes: no rashes Trauma: no lacerations or abrasions Neuro CN's II-XII intact bilaterally, no focal motor deficits, no sensory deficits noted and deep tendon reflexes 2+ bilaterally Psych mental status grossly normal and affect normal Patient seen and examined prior to discharge. Physical assessment as noted above. Patient is stable for discharge with follow up recommendations as noted above. This patient was seen by YOON Coto under the supervision of Dr. Stoll. Time spent examining patient, reviewing data and subsequent management of care: 15 Weight / BMI Weight Weight: 111 lb 8.862 oz Body Mass Index (BMI) 20.4 ABG / Lab / Microbiology Data Result Diagrams: 03/23/21 05:44 03/24/21 01:40 Laboratory: Laboratory Results - last 24 hr 03/24/21 01:40: Vancomycin Trough 6.1 03/24/21 01:40: Sodium 137, Potassium 3.3 L, Chloride 107, Carbon Dioxide 23.0, Anion Gap 7, BUN 9, Creatinine 0.46 L, Estim Creat Clear Calc 99.00, Est GFR (MDRD) Af Amer 176, Est GFR (MDRD) Non-Af 145, BUN/Creatinine Ratio 19.6, Glucose 86, Calcium 8.0 L, Total Bilirubin 0.60, AST 15, ALT 21, Alkaline Phosphatase 71, Total Protein 5.5 L, Albumin 2.4 L, Globulin 3.1, Albumin/Globulin Ratio 0.8 L Microbiology: Microbiology 03/22/21 12:10 Blood Culture (Wb) - Anticubital Right Blood Culture - Preliminary No growth in 48 hours. 03/22/21 12:45 Blood Culture (Wb) - Port Blood Culture - Preliminary No growth in 48 hours. 03/22/21 13:50 Wound - Hand Gram Stain - Final 03/22/21 13:50 Wound - Hand Wound Culture - Final Meth. resistant Staph. aureus 03/23/21 09:20 Nasal Secretion SARS-CoV-2 Antigen (Rapid) - Final Meaningful Use Info Meaningful Use Diagnoses (Choose all that apply): None applicable Discharge Plan Admission Admit Date/Time: 03/22/21 15:35 Primary Reason for Your Visit: Left hand cellulitis Attending Provider: Isai Stoll Primary Care Provider: Joyce Physician,No Primary Consulting Providers: Rafa Brown ; Steven Lazo Discharge Orders/Prescriptions Prescriptions: No Action ergocalciferol (vitamin D2) 1,250 mcg (50,000 unit) capsule 1,250 mcg PO TH RF: 0 Referrals / Follow Up: Care Physician,No Primary [Primary Care Provider] - Disposition Disposition (needs filled in before D/C Order can be placed): [facility] Documented by User: Dr. Isai Stoll MD 03/24/21 17:06 Providers Date of Admission: 03/22/21 Reason For Visit: CELLULITIS / SEPSIS Medications at Discharge Home Medications ergocalciferol (vitamin D2) 1,250 mcg PO TH 03/22/21 ABG / Lab / Microbiology Data Result Diagrams: 03/23/21 05:44 03/24/21 01:40 Discharge Plan Admission Admit Date/Time: 03/22/21 15:35 Primary Reason for Your Visit: Left hand cellulitis Attending Provider: Isai Stoll Primary Care Provider: Joyce Bunn,No Primary Consulting Providers: Rafa Brown ; Steven Lazo Discharge Orders/Prescriptions Prescriptions: No Action ergocalciferol (vitamin D2) 1,250 mcg (50,000 unit) capsule 1,250 mcg PO TH RF: 0 Referrals / Follow Up: Care Physician,No Primary [Primary Care Provider] - Disposition Disposition (needs filled in before D/C Order can be placed): [facility] Charges/Coding Addendum Addendum: Dr. Stoll: I personally reviewed the chart and examined the patient, and agree with the above findings. 65-year-old female with history of breast cancer stage II who is currently immunocompromise secondary to chemotherapy presented to the hospital on 03/22/2021 secondary to left hand wound. She is unsure as to the etiology of the hand wound, she denies any type of trauma however there is significant swelling and erythema on her left hand. Since we do not have a hand surgeon or hand specialist at this institution we elected to transfer to a tertiary care center. She was started on vancomycin and Zosyn, she had some worsening of pain in her left hand so a CT scan was obtained which was negative for osteomyelitis or an abscess and because it was felt that she did not likely have any necrotizing fasciitis at this time, the clindamycin was discontinued. She was accepted in transfer to the [facility] and she was transferred today. On transfer her vital signs are able, her white blood cell count is 6.2 with a hemoglobin of 10.6 and a normal renal function. Clinical time spent in all aspects of patient care: 30 minutes Visit Charges Inpatient E&M: [id number] Disch Hosp
[2021-03-24] MEDS: Morphine 2 MG/ML Syringe 1 MG IV (14:50)
--- NOTE | 2021-03-24 16:35 | NURSING ---
Attempted to call report to [facility], for bed 36 but RN busy and will call back at number here for .
--- NOTE | 2021-03-24 17:58 | NURSING ---
Report given to Min HERNANDEZ at [facility] at this time.
== END 2021-03-24 17:51 | disposition short-term general hospital (02) | DRG 603 ==
LOC: ED 14:04 → MS3 03-23 06:58
PROVIDERS: Nurse Practitioner Family; Admitting Provider Internal Medicine; Emergency Provider Emergency Medicine; Visit Provider Family Medicine
DX: L03.012 Cellulitis of left finger (principal); D84.9 Immunodeficiency, unspecified; L02.414 Cutaneous abscess of left upper limb; L03.114 Cellulitis of left upper limb; C50.919 Malignant neoplasm of unspecified site of unspecified female breast; F17.210 Nicotine dependence, cigarettes, uncomplicated; M65.832 Other synovitis and tenosynovitis, left forearm; Z23 Encounter for immunization; Z20.822 Contact with and (suspected) exposure to COVID-19; Z95.828 Presence of other vascular implants and grafts
CPT/HCPCS: 0001A; 36415; 36591; 73130; 73201; 80053; 80202; 83605; 85025; 85610; 85730; 87040; 87070; 87077; 87186; 87205; 87426; 91300; 99285; J7030; J7040; J7050; Q9967; A4216

== ENCOUNTER 2024-11-22 14:05 | Emergency (ER) | payer MEDICARE, BC, SELFPAY ==
[2024-11-22 14:06] VITALS: BP 182/102; PULSE 106; RESP 18; TEMP 36.9; O2SAT 96; BMI 20.8
[2024-11-22 14:10] VITALS: BP 182/102; PULSE 106; RESP 18; TEMP 36.9; O2SAT 96
--- NOTE | 2024-11-22 15:29 | EDS_ITS ---
HPI History of Present Illness Chief Complaint: Cellulitis Informant: patient Narrative Narrative: Patient is a 69-year-old female with history of MRSA infection in her left hand, who is right-hand dominant presenting with increased swelling and redness to her right hand after a cat bite that occurred 2 days ago. She was playing with her cat when her cat accidentally bit the dorsal aspect of her right hand. She followed up with urgent care yesterday where her tetanus was updated and she was started on antibiotics. She states the swelling has worsened today and started to go up her wrist and she looked up online and saw that the antibiotic does not cover for MRSA. She denies any associated drainage. States it is painful to move her fingers. Denies any fever or chills. She denies any nausea or vomiting. States that she did jason the edges of the swelling this morning and has not gone past it throughout the day today. Chart review shows that she was prescribed Augmentin yesterday. Last dose was this morning. [facility] Medical History Extensor tenosynovitis of left wrist Complication of chemotherapy Smoker Port-A-Cath in place Paronychia of left ring finger Breast cancer Home Medications ?Medication ?Instructions ?Recorded ?Last Taken ?Type ergocalciferol (vitamin D2) 1,250 1,250 mcg PO TH SUPP LEMENT 03/22/21 03/18/21 History mcg (50,000 unit) capsule sulfamethoxazole 800 1 tab PO BID #20 tabs Unknown Rx mg-trimethoprim 160 mg tablet (Bactrim DS) Allergy/AdvReac Type Severity Reaction Status Date / Time No Known Allergies Allergy Verified 11/22/24 14:11 Family History Mother Cancer Father Cancer Surgical History H/O tubal ligation History of bunionectomy Social History Smoking Status: Current every day smoker tobacco type: cigarettes alcohol intake: never substance use type: does not use ROS ROS ED Constitutional Constitutional ED: Denies chills or fever(s) Respiratory/Chest Respiratory/Chest: Denies cough Gastrointestinal Gastrointestinal: Denies nausea or vomiting Musculoskeletal Musculoskeletal: Reports other Details: Right hand swelling and pain Integumentary Reports rash and other Details: Cat bite to the right hand ; Denies abscess Neurologic Neurologic: Denies paresthesias or weakness Hematologic/Lymphatic Hematologic/Lymphatic: Denies easy bleeding or easy bruising EXAM Physical Exam Const Vital Signs: 11/22/24 14:06 11/22/24 14:10 11/22/24 15:53 Temperature 98.4 F 98.4 F 98.4 F Temperature Source Oral Oral Oral Pulse Rate 106 H 106 H 76 Respiratory Rate 18 18 18 Blood Pressure 182/102 H 182/102 H 159/102 H Blood Pressure Mean 128 128 121 Pulse Ox 96 96 99 Oxygen Delivery Method Room Air Room Air Room Air 11/22/24 16:00 Temperature 98.4 F Temperature Source Oral Pulse Rate 76 Respiratory Rate 18 Blood Pressure 159/102 H Blood Pressure Mean 121 Pulse Ox 99 Oxygen Delivery Method Room Air Positive well nourished and well developed General Appearance ED: well developed and NAD HEENT Reports moist mucous membranes Neck supple Chest Wall inspection of chest normal Resp normal respiratory effort and clear to auscultation bilaterally Cardio regular rate and regular rhythm Extremity Extremity Narrative: Soft tissue swelling most pronounced of the dorsum of the right hand and extending proximally down the wrist approximately 4 cm. Pain with attempted passive extension of the wrist as well as pain with attempts of extension of the 3rd through 5th fingers (patient is holding them in flexion. There is no fusiform finger swelling. There is associated erythema and warmth. No fluctuance is appreciated. No associated lymphangitic streaking. Neuro oriented x3 Sensorium / Orientation: alert Psych mental status grossly normal Skin Skin Narrative: Erythema and warmth of the dorsal aspect of the hand extending approximately 4 cm proximal to the forearm. MDM MDM MDM Narrative Medical decision making narrative: Patient evaluated for increased swelling of the right hand and pain associated with a cat bite that she sustained 2 hours ago. She was started on Augmentin yesterday but had increased swelling today so she came in. She also history of MRSA and is concerned that she does not have adequate MRSA coverage. Differential includes not limited to flexor tenosynovitis, failure of outpatient treatment, cellulitis. She does not have any systemic symptoms. She is overall well-appearing. Clinically does have a significant cellulitis to the dorsum of the hand that is spreading proximally but there is no lymphangitic streaking. Patient is given a dose of IV vancomycin in the ER and blood cultures as well as labs including CBC, ESR, CRP and BMP as well as lactic acid obtained. She does have an elevation of her CRP as well as a mild elevation of her ESR however other labs are normal. No leukocytosis. I did recommend/offer admission given that she feels that she is not improving and that it is a cat bite. Patient declined stating that she needs to leave to feed her outdoor cats. Shared medical decision making made and patient is agreeable with a dose of IV antibiotics, will start her on Bactrim and given close return precautions. Counseled she is worsening anyway she needs to return or if she is not improving. She did have an x-ray yesterday looking for foreign body and her tetanus updated yesterday so do not think these need to be repeated today. Patient acting appropriately emergency room has capacity to make this decision. Is discharged home in stable condition. On repeat evaluation she does actually have some slight improvement of her soft tissue swelling of her hand as well as increased range of motion of the fingers. Her physical exam is not consistent with a flexor tenosynovitis at this time and she does not have fusiform swelling of the fingers or tenderness along the flexor sheath however she does have flexed posture as well as pain with passive extension. There is no area of fluctuance or anything that requires I&D at this time Lab Data Attestation: I reviewed the patient's lab results. Labs: Laboratory Results - last 24 hr 11/22/24 15:18 WBC 7.1 RBC 4.82 Hgb 15.4 H Hct 44.5 MCV 92.3 MCH 32.0 MCHC 34.6 RDW Std Deviation 42.3 RDW Coeff of Eliseo 12.4 Plt Count 196 MPV 9.5 Immature Gran % (Auto) 0.400 Neut % (Auto) 65.8 Lymph % (Auto) 22.1 Pender % (Auto) 7.8 Eos % (Auto) 3.1 Baso % (Auto) 0.8 Absolute Neuts (auto) 4.7 Absolute Lymphs (auto) 1.56 Nucleated RBC % 0 ESR 40 H Sodium 136 Potassium 3.9 Chloride 98 Carbon Dioxide 24.1 Anion Gap 14 BUN 14 Creatinine 0.69 L Estim Creat Clear Calc 53.97 Est GFR (MDRD) Non-Af 95 BUN/Creatinine Ratio 19.7 Glucose 100 H Lactic Acid < 1.0 Calcium 9.8 C-React Prot Ext Range 62.90 H Discharge Plan Triage Chief Complaint: Cellulitis ED Provider: Kallie Shah Dx/Rx/DC Orders Clinical Impression: Cat bite of right hand, Cellulitis of hand, right Instructions: ED Cat Bite, ED Cellulitis Prescriptions: New sulfamethoxazole-trimethoprim [Bactrim DS] 800-160 mg tablet 1 tab PO BID Qty: 20 0RF No Action ergocalciferol (vitamin D2) 1,250 mcg (50,000 unit) capsule 1,250 mcg PO TH Primary Care Provider: Ronn Wang Referrals: Ronn Wang MD [Primary Care Provider, Internal Medicine] Activity Restrictions/Additional Instructions: Start taking the Bactrim tonight before you go to bed in addition to the Augmentin. If you develop fever, any worsening of the redness/swelling moving up your arm or feeling worse please return immediately to the emergency room. I do recommend keeping the hand elevated above the level of your heart is much as possible to also help with the swelling. Print Language: Yakut Disposition Disposition: Home, Self Care
[2024-11-22 15:46] LABS: Hematocrit 44.5 % (37-47); Hemoglobin 15.4 g/dL (12.0-15.0); Immature Granulocytes Count 0.030 X10^3/uL (0.0-0.0); Mean Corp Hgb Conc 34.6 g/dL (32-36); Mean Corpuscular Volume 92.3 fL (81-99); Mean Platelet Vol. 9.5 fl (6.2-12.0); NRBC Flagged by Analyzer 0 % (0-5); Platelet Count 196 K/mm3 (150-450); RBC Distribution Width CV 12.4 % (11.6-14.6); RBC Distribution Width SD 42.3 fl (35.1-43.9); Red Blood Count 4.82 M/mm3 (4.2-5.4); White Blood Count 7.1 K/mm3 (4.4-11.0)
[2024-11-22] MEDS: Vancomycin HCl 750 MG in 0.9% Normal Saline (250mL Bag) 250 ML 265 MG IV (15:47)
[2024-11-22 15:53] VITALS: BP 159/102; PULSE 76; RESP 18; TEMP 36.9; O2SAT 99
[2024-11-22 15:55] LABS: Anion Gap 14 (5-15); BUN 14 mg/dL (4-19); BUN/Creat Ratio 19.7 RATIO (10-20); Calcium,Total 9.8 mg/dL (7.6-11.0); Carbon Dioxide 24.1 mmol/L (21.0-32.0); Chloride 98 mmol/L (98-108); Estimated Creatinine Clearance 53.97 ml/min (50-250); Glucose 100 mg/dL (70-99); Potassium 3.9 mmol/L (3.3-5.1)
[2024-11-22 16:00] VITALS: BP 159/102; PULSE 76; RESP 18; TEMP 36.9; O2SAT 99
[2024-11-22 16:19] LABS: CRP 62.90 mg/L (0.0-3.0)
[2024-11-22 17:03] VITALS: BP 173/89; PULSE 66; RESP 18; TEMP 36.9; O2SAT 99
== END 2024-11-22 17:33 | disposition home or self-care (01) ==
PROVIDERS: Emergency Provider Emergency Medicine; PCP Internal Medicine; Visit Provider Emergency Medicine
DX: L03.113 Cellulitis of right upper limb (principal); S60.572A Other superficial bite of hand of left hand, initial encounter; W55.01XA Bitten by cat, initial encounter; F17.210 Nicotine dependence, cigarettes, uncomplicated
CPT/HCPCS: 80048; 83605; 85025; 85652; 86140; 87040; 96365; 99283; A4216

== ENCOUNTER 2024-11-23 13:50 | Emergency (ER) | payer MEDICARE, BC, SELFPAY ==
[2024-11-23 13:52] VITALS: BP 181/134; PULSE 33; RESP 16; TEMP 36.4; O2SAT 98; BMI 20.8
--- NOTE | 2024-11-23 13:56 | EKG12_ITS ---
Test Reason : BACK PAIN Blood Pressure : */* mmHG Vent. Rate : 96 BPM Atrial Rate : 96 BPM P-R Int : 148 ms QRS Dur : 124 ms QT Int : 396 ms P-R-T Axes : 69 91 11 degrees QTcB Int : 500 ms Sinus rhythm with occasional Premature ventricular complexes Right bundle branch block Abnormal ECG Confirmed by ASHLEY BUENO, NADEEM ([id number]), web editor IRIS JAIMES ([id number]) on 11/25/2024 8:30:34 AM Referred By: ROBERTO Confirmed By: NADEEM RAMIREZ MD
--- NOTE | 2024-11-23 13:56 | RAD_ITS ---
PROCEDURE: CHEST 1 VIEW (PORTABLE) 11/23/2024 REASON FOR EXAM: CHEST PAIN TECHNIQUE: Frontal view of the chest. COMPARISON: None FINDINGS: None atherosclerosis of the aorta. The heart and mediastinum are normal. The lungs are clear. Left apical scarring present. Blunted right costophrenic angle. Surgical clips overlie the left axilla. Degenerative changes are present within the thoracic spine and both shoulders. RAD/Chest 1 View (Portable) IMPRESSION: No acute cardiopulmonary process. Reading Location: [id number]
--- NOTE | 2024-11-23 14:08 | EX.ED.DYSGE1 ---
HPI History of Present Illness Chief Complaint: Back Informant: patient Onset/Context/Timing Onset: Today Current Severity: Mild Maximum Severity: Mild Narrative Narrative: 69-year-old female seen yesterday in the emergency department. Currently being treated for cat bite infection the back of her right hand she is on both Bactrim and I believe Augmentin. States she took one of the pills she and start reading the side effects of the medication. And was concerned about that. States she became anxious and tense. She is also having some left lateral rib pain. Denies any falls or trauma. States she feels like she is also having palpitations. No chest pain. No shortness of breath. Past medical history of left breast cancer with mastectomy. Years ago. Prior similar symptoms: No Recent Illness/Hospitalization: No PFSH PFSH Medical History Extensor tenosynovitis of left wrist Complication of chemotherapy Smoker Port-A-Cath in place Paronychia of left ring finger Breast cancer Home Medications ?Medication ?Instructions ?Recorded ?Last Taken ?Type ergocalciferol (vitamin D2) 1,250 1,250 mcg PO TH SUPPLEMENT 03/22/21 03/18/21 History mcg (50,000 unit) capsule sulfamethoxazole 800 1 tab PO BID #20 tabs 11/22/24 Unknown Rx mg-trimethoprim 160 mg tablet (Bactrim DS) Allergy/AdvReac Type Severity Reaction Status Date / Time No Known Allergies Allergy Verified 11/23/24 13:52 Family History Mother Cancer Father Cancer Surgical History H/O tubal ligation History of bunionectomy Social History Smoking Status: Current every day smoker tobacco type: cigarettes alcohol intake: never substance use type: does not use ROS ROS ED ROS Narrative Denies recent illness of the infected right hand. Constitutional Constitutional ED: Denies chills or fever(s) Eyes Eyes: Denies blurry vision ENT ENT ED: Denies ear pain Cardiovascular Cardiovascular: Reports palpitations; Denies chest pain Respiratory/Chest Respiratory/Chest: Denies cough, dyspnea or dyspnea on exertion Gastrointestinal Gastrointestinal: Denies abdominal pain, diarrhea, nausea or vomiting Genitourinary Genitourinary ED: Denies dysuria or hematuria Musculoskeletal Musculoskeletal: Denies arthralgias or back pain Integumentary Denies abscess Neurologic Neurologic: Denies headache(s) Psychiatric Psychiatric: Reports anxiety Endocrine Endocrinology: Denies cold intolerance Hematologic/Lymphatic Hematologic/Lymphatic: Reports none Allergic/Immunologic Allergic/Immunologic ED: Denies mouth swelling, tongue swelling or urticaria EXAM Physical Exam Narrative Exam Narrative: Well-appearing 69-year-old female. Vital signs are stable she is afebrile. Reportedly in triage her heart rate dropped but currently she is in a sinus rhythm and 90s. She does not look septic toxic she is no acute distress. Her blood pressure is elevated she is anxious. H EENT exam pupils round react light. Moist mucous membranes. No facial droop. No trauma. Neck nontender no lymphadenopathy. No thyromegaly. Back normal in appearance. She has some left upper lateral rib cage tenderness to deep palpation. There is no bruising or signs of trauma. No redness or warmth. No rash. No bony deformity. Lungs clear to auscultation bilaterally. Heart regular rhythm occasional PVC no murmur rate in the 90s. Chest wall nontender. Abdomen is soft nontender nondistended. Normal bowel sounds without peritoneal signs. No hernia or mass. Moving all 4 extremities. Right hand is swollen but she says it is much better than what it has been she thinks the antibiotics are working. She can do flexion extension of both hands. Equal symmetrical radial pulses. Normal dorsi plantarflexion of the feet. Calves nontender no edema. Neurologically she is awake alert. Answering questions following commands. No focal motor deficits. Const Vital Signs: 11/23/24 13:52 11/23/24 14:25 11/23/24 14:26 Temperature 97.6 F L Temperature Source Temporal Pulse Rate 33 L 87 Respiratory Rate 16 Blood Pressure 181/134 H Blood Pressure Mean 149 Pulse Ox 98 Oxygen Delivery Method Room Air Room Air Positive well nourished and well developed; Negative for obese, cachectic, contractures or unkempt General Appearance ED: well developed and NAD; Negative for unkempt, cachectic, contractures, cyanotic, diaphoretic or pallor Nutritional Appearance: Negative for cachectic or obese HEENT Reports moist mucous membranes Eyes PERRL and EOMs intact bilaterally Neck no lymphadenopathy, supple and no JVD Chest Wall inspection of chest normal and palpation of chest normal Resp normal respiratory effort and clear to auscultation bilaterally Cardio regular rate, regular rhythm, S1 normal heart sound, S2 normal heart sound and no murmurs GI normal to inspection, nondistended, normoactive bowel sounds, non-tender, non-distended and no masses Inspection: Negative for abdominal distention Auscultation: normoactive bowel sounds Palpation: soft; Negative for tender, guarding or rebound tenderness present Back/Spine no CVA tenderness Back/Spine Narrative: Mild left upper lateral rib cage pain posteriorly. No discoloration. No bruising. No crepitus. No subcu air. No bony deformity. Extremity normal to inspection General Extremety ED: Negative for edema or tenderness General Extremity: Negative for edema Neuro oriented x3 and CN's II-XII intact bilaterally Sensorium / Orientation: alert; Negative for orientation impaired, lethargic or stuporous Motor Exam: strength 5/5 throughout; Negative for general weakness or strength abnormal Psych mental status grossly normal Appearance: Negative for unkempt Mood & Affect: anxious Skin no rashes or lesions noted, no wounds and skin turgor normal Skin Narrative: Right hand dorsal swelling with mild redness this is consistent with cellulitis. General Skin Exam: Negative for elasticity normal, jaundice or pallor Rashes: rashes noted MDM MDM MDM Narrative Medical decision making narrative: 69-year-old female currently is on 2 different antibiotics for a cat bite infection in her right hand which she states is significantly improving. Today she got anxious after she read all the potential side effects of the antibiotics. She came in to be evaluated. She also has some mild left posterior lateral rib cage pain. Cardiac workup will be done. Her exam is benign. Other than the improving dorsal right hand soft tissue infection. Repeat exam patient doing well at 3:45 PM. Exam normal. Says she feels great. Having no complaints. Went over all of her test results. She is comfortable being discharged to home. Outpatient follow-up as needed. History & Record Review Discussion w/independent historian: Patient Additional record(s) reviewed:: Prior inpatient record, Prior outpatient record, Prior ED visit and Prior labs Lab Data Attestation: I reviewed the patient's lab results. Lab results narrative: CBC unremarkable. White count 5.9. H&H 15 and 41. Platelets 178. Electrolytes show a gap of 15. BUN and creatinine of 13 and 0.8. Glucose 123. Troponins 10. TSH is 1.07. Chest x-ray is chronic changes. Labs: Laboratory Results - last 24 hr 11/23/24 14:30 WBC 5.9 RBC 4.58 Hgb 15.0 Hct 41.8 MCV 91.3 MCH 32.8 H MCHC 35.9 RDW Std Deviation 41.7 RDW Coeff of [place] 12.5 Plt Count 178 MPV 9.0 Immature Gran % (Auto) 0.200 Neut % (Auto) 63.1 Lymph % (Auto) 23.7 [place] % (Auto) 8.6 Eos % (Auto) 3.9 Baso % (Auto) 0.5 Absolute Neuts (auto) 3.8 Absolute Lymphs (auto) 1.41 Nucleated RBC % 0 Sodium 135 Potassium 3.9 Chloride 99 Carbon Dioxide 20.8 L Anion Gap 15 BUN 13 Creatinine 0.86 Estim Creat Clear Calc 50.21 Est GFR (MDRD) Non-Af 74 BUN/Creatinine Ratio 15.1 Glucose 123 H Calcium 9.6 Troponin T High Sens 10 TSH 1.070 Radiography Chest X-Ray - ED: 1 View, Read by ED Physician, Heart, Lungs, Mediastinum, Bony Structures, No Acute Disease and Chronic Changes Diagnostic Testing: Chest x-ray, portable, single view interpreted by myself shows normal cardiac silhouette. Normal mediastinum. Normal aorta. Normal lung granda. Chronic changes. No acute process. Rhythm Strip Rhythm Strip: Sinus Rhythm Rate: 96 Ectopy: PVC(s) EKG Initial EKG: Attestation: I personally reviewed and interpreted this EKG as follows: Interpretation: Sinus Rhythm, No Acute Injury Pattern and RBBB Comments: Sinus rhythm rate 96 no acute signs of TN. Occasional PVCs. Right bundle branch block. Discharge Plan Triage Chief Complaint: Back ED Provider: [facility] [facility] Dx/Rx/DC Orders Clinical Impression: Anxiety, Symptomatic PVCs, Cat bite of right hand Instructions: PVCs Prescriptions: No Action ergocalciferol (vitamin D2) 1,250 mcg (50,000 unit) capsule 1,250 mcg PO TH sulfamethoxazole-trimethoprim [Bactrim DS] 800-160 mg tablet 1 tab PO BID Qty: 20 0RF Primary Care Provider: Ronn Wang Referrals: Ronn Wang MD [Primary Care Provider, Internal Medicine] - As Needed Activity Restrictions/Additional Instructions: Follow-up with your doctor as needed. Continue your current antibiotics for your cat bite infection in your hand. Print Language: Turkmen Disposition Disposition: Home, Self Care
--- OUTSIDE RECORDS SUMMARY | 2024-11-23 14:13 | XMS RPT_ITS | CCD ---
Author Organization [facility] Care Team Providers Care Mop Machine Operator Name Role Phone NATALYA BANERJEE MD Admitting Unavailable NATALYA BANERJEE MD Attending Unavailable NATALYA BANERJEE MD Primary Care Unavailable ROBERT, TAMMIE T Admitting Unavailable ROBERT, TAMMIE T Attending Unavailable ROBERT, TAMMIE T Primary Care Unavailable ROBERT, TAMMIE T Admitting Unavailable ROBERT, TAMMIE T Attending Unavailable ROBERT, TAMMIE T Primary Care Unavailable WILDER GARCIA Primary Care Unavailable WILDER GARCIA Admitting Unavailable WILDER GARCIA Attending Unavailable ROBERT, TAMMIE T Admitting Unavailable ROBERT, TAMMIE T Attending Unavailable ROBERT, TAMMIE T Primary Care Unavailable ROBERT, TAMMIE T Admitting Unavailable ROBERT, TAMMIE T Attending Unavailable ROBERT, TAMMIE T Primary Care Unavailable MIRZA, [facility] Admitting Unavaila ble MIRZA, [facility] Attending Unavaila ble MIRZA, [facility] Primary Care Unavaila ble ROBERT, TAMMIE T Attending Unavailable ROBERT, TAMMIE T Primary Care Unavailable ROBERT, TAMMIE T Admitting Unavailable Skinny HERNANDEZ, Charles Unavailable Ronn Wang MD Primary Care Provider Calvin BUENO MD, Cris Unavailable Abiola Rivera MD Unavailable Charles Babb RN Unavailable Ronn Wang MD Primary Care Provider Calvin BUENO MD, Cris Unavailable Abiola Rivera MD Unavailable LILLY TOMAS A Admitting Unavailable THOM LILLY A Attending Unavailable RONN WANG Primary Care Unavailable Skinny HERNANDEZ, Charles Unavailable Charles Babb RN Unavailable Carmen BUENO, Ronn Skinner Primary Care Provider Calvin BUENO MD, Hermilaung Unavailable Abiola Rivera MD Unavailable Abiola Rivera MD Unavailable Suzy BUENO, Salvador Unavailable Skinny HERNANDEZ, Charles Unavailable Pritesh BUENO, Abiola Unavailable Calvin BUENO, Cris Unavailable Carmen BUENO, Ronn Skinner Primary Care Provider Jaclyn ARBOLEDA Steven Tammie Unavailable David DATABASE SOFTWARE TECHNICIAN.Wanda MARCELINO Unavailable WANAD NOWAK Attending Unavailable CARMEN, GISEL Primary Care Unavailable WANDA NOWAK Referring Unavailable WANG, GISEL Primary Care Unavailable WANDA NOWAK Referring Unavailable WANG, GISEL Primary Care Unavailable SALVADOR CARBONE Referring Unavailable WANG, GISEL Primary Care Unavailable SALVADOR CARBONE Attending Unavailable WANG, GISEL Primary Care Unavailable WANG, GISEL Primary Care Unavailable WANG, GISEL Referring Unavailable WANG, GISEL Primary Care Unavailable SALVADOR CARBONE Referring Unavailable ABIOLA RIVERA Referring Unavailable WANG, GISEL Primary Care Unavailable WANG, GISEL Primary Care Unavailable SALVADOR CARBONE Referring Unavailable ABIOLA RIVERA Referring Unavailable WANG, GISEL Primary Care Unavailable WANG, GISEL Primary Care Unavailable ELADIATER, RONNIE Referring Unavailable WANG, GISEL Primary Care Unavailable HARPSTER, RONNIE Referring Unavailable HARPSTER, RONNIE Attending Unavailable Allergies Allergy Classification Reported Allergen(s) Allergy Type Date of Onset Reaction(s) Facility (20 sources) Covid-19 (Sars-Cov-2) Vaccine, [facility] Cell; Translations: [COVID-19 (SARS-COV-2) VACCINE, MARYJO CELL] Drug Allergy 05-18-2021 [facility] Medications Current Medications Medication Drug Class(es) Dates Sig (Normalized) Sig (Original) cefadroxil 500 mg oral capsule (14 sources) Cephalosporin Antibacterial Start: 09-02-2021 End: 09-16-2021 take 1 capsule by mouth twice daily cefADROxil (DURICEF) 500 mg capsule Take 1 capsule by mouth twice daily for 14 days. 28 capsule 0 09/02/2021 09/16/2021 Active Comment on above: Take 1 capsule by mo [facility] twice daily for 14 days. doxycycline hyclate 100 mg oral capsule (4 sources) Tetracycline-class Drug Start: 04-13-2023 End: 04-23-2023 take 1 capsule by mouth twice daily doxycycline hyclate (VIBRAMYCIN) 100 mg capsule Take 1 capsule by mouth two times a day for 10 days. 20 capsule 0 04/13/2023 04/23/2023 Active Comment on above: Take 1 capsule by mo [facility] two times a day for 10 days. letrozole 2.5 mg oral tablet (20 sources) Aromatase Inhibitor Start: 03-22-2022 End: 03-01-2025 take 1 tablet by mouth once daily letrozole (FEMARA) 2.5 mg tablet Indications: Malignant neoplasm of upper-outer quadrant of left breast in female, estrogen receptor positive (HCC) Take 1 tablet by mouth once daily. 90 tablet 3 03/01/2024 03/01/2025 Active Start: 11-30-2021 End: 03-18-2022 take 1 tablet by mouth once daily letrozole (FEMARA) 2.5 mg tablet Indications: Malignant neoplasm of upper-outer quadrant of left breast in female, estrogen receptor positive (HCC) Take 1 tablet by mouth once daily. 30 tablet 5 11/30/2021 03/18/2022 Discontinued Start: 11-22-2021 End: 09-13-2021 take 1 tablet by mouth once daily letrozole (FEMARA) 2.5 mg tablet Take 1 tablet by mouth once daily. 30 tablet 5 11/22/2021 09/13/2021 Discontinued Start: 11-01-2021 End: 11-30-2021 take 1 tablet by mouth once daily letrozole (FEMARA) 2.5 mg tablet Take 1 tablet by mouth once daily. 30 tablet 5 11/01/2021 11/30/2021 Discontinued Start: 11-01-2021 take 1 tablet by juan [facility] once daily letrozole (FEMARA) 2.5 mg tablet Take 1 tablet by mouth once daily. 30 tablet 5 11/01/2021 Active Start: 11-01-2021 take 1 tablet by juan [facility] once daily letrozole (FEMARA) 2.5 mg tablet Take 1 tablet by mouth once daily. 30 tablet 5 11/01/2021 Active Start: 11-01-2021 take 1 tablet by juan [facility] once daily letrozole (FEMARA) 2.5 mg tablet Take 1 tablet by mouth once daily. 30 tablet 5 11/01/2021 Active Start: 11-01-2021 take 1 tablet by juan [facility] once daily letrozole (FEMARA) 2.5 mg tablet Take 1 tablet by mouth once daily. 30 tablet 5 11/01/2021 Active Start: 11-01-2021 take 1 tablet by juan [facility] once daily letrozole (FEMARA) 2.5 mg tablet Take 1 tablet by mouth once daily. 30 tablet 5 11/01/2021 Active Start: 11-01-2021 take 1 tablet by juan [facility] once daily letrozole (FEMARA) 2.5 mg tablet Take 1 tablet by mouth once daily. 30 tablet 5 11/01/2021 Active Start: 11-01-2021 take 1 tablet by juan [facility] once daily letrozole (FEMARA) 2.5 mg tablet Take 1 tablet by mouth once daily. 30 tablet 5 11/01/2021 Active Start: 11-01-2021 take 1 tablet by juan [facility] once daily letrozole (FEMARA) 2.5 mg tablet Take 1 tablet by mouth once daily. 30 tablet 5 11/01/2021 Active Start: 11-01-2021 take 1 tablet by juan [facility] once daily letrozole (FEMARA) 2.5 mg tablet Take 1 tablet by mouth once daily. 30 tablet 5 11/01/2021 Active Start: 11-01-2021 take 1 tablet by juan [facility] once daily letrozole (FEMARA) 2.5 mg tablet Take 1 tablet by mouth once daily. 30 tablet 5 11/01/2021 Active Start: 11-01-2021 take 1 tablet by juan [facility] once daily letrozole (FEMARA) 2.5 mg tablet Take 1 tablet by mouth once daily. 30 tablet 5 11/01/2021 Active Start: 11-01-2021 take 1 tablet by [facility]an [facility] once daily letrozole (FEMARA) 2.5 mg tablet Take 1 tablet by mouth once daily. 30 tablet 5 11/01/2021 Active Start: 11-01-2021 take 1 tablet by juan [facility] once daily letrozole (FEMARA) 2.5 mg tablet Take 1 tablet by mouth once daily. 30 tablet 5 11/01/2021 Active Start: 11-01-2021 take 1 tablet by [facility]an [facility] once daily letrozole (FEMARA) 2.5 mg tablet Take 1 tablet by mouth once daily. 30 tablet 5 11/01/2021 Active Comment on above: Take 1 tablet by juan [facility] once daily. Melatonin (20 sources) take 1 tablet by mouth at bedtime as needed MELATONIN ORAL Take 1 tablet by mouth at bedtime as needed. Active take 1 tablet by juan th at bedtime as needed MELATONIN ORAL Take 1 tablet by mouth at bedtime as needed. 0 Suspended take 1 tablet by juan [facility] at bedtime as needed MELATONIN ORAL Take 1 tablet by mouth at bedtime as needed. 0 Active Comment on above: Take 1 tablet by juan th at bedtime as needed. metroNIDAZOLE 250 mg oral tablet (4 sources) Nitroimidazole Antimicrobial Start: 04-13-19 End: 04-23-19 take 1 tablet by mouth four times daily metroNIDAZOLE (FLAGYL) 250 mg tablet Take 1 tablet by mouth four times daily for 10 days. 40 tablet 0 04/13/2023 04/23/2023 Active Comment on above: Take 1 tablet by juan th four times daily for 10 days. perflutren lipid microspheres 1.3 mL in NaCl (PF) 0.9% 10 mL injection (DEFINITY) (20 sources) Start: 11-19-19 End: 02-18-20 perflutren lipid microspheres 1.3 mL in NaCl (PF) 0.9% 10 mL injection (DEFINITY) 125 ml sodium chloride 9 mg/ml prefilled syringe (20 sources) Start: 11-19-19 End: 02-18-20 sodium chloride 0.9 % (flush) 10 mL (BD POSIFLUSH) Completed/Discontinued Medications Medication Drug Class(es) Dates Sig (Normalized) Sig (Original) abemaciclib 150 mg oral tablet (20 sources) Start: 11-22-2021 End: 11-30-2021 take 1 tablet by mouth twice daily abemaciclib (VERZENIO) 150 mg tablet Take 1 tablet (150 mg) by mouth twice daily. 56 tablet 2 11/22/2021 11/30/2021 Discontinued Start: 11-22-2021 take 1 tablet by juan th twice daily abemaciclib (VERZENIO) 150 mg tablet Take 1 tablet (150 mg) by mouth twice daily. 56 tablet 2 11/22/2021 Active Start: 11-22-2021 take 1 tablet by juan th twice daily abemaciclib (VERZENIO) 150 mg tablet Take 1 tablet (150 mg) by mouth twice daily. 56 tablet 2 11/22/2021 Active Start: 11-22-2021 take 1 tablet by juan th twice daily abemaciclib (VERZENIO) 150 mg tablet Take 1 tablet (150 mg) by mouth twice daily. 56 tablet 2 11/22/2021 Active Start: 11-22-2021 take 1 tablet by juan th twice daily abemaciclib (VERZENIO) 150 mg tablet Take 1 tablet (150 mg) by mouth twice daily. 56 tablet 2 11/22/2021 Active Start: 11-22-2021 take 1 tablet by juan th twice daily abemaciclib (VERZENIO) 150 mg tablet Take 1 tablet (150 mg) by mouth twice daily. 56 tablet 2 11/22/2021 Active Start: 11-22-2021 take 1 tablet by juan th twice daily abemaciclib (VERZENIO) 150 mg tablet Take 1 tablet (150 mg) by mouth twice daily. 56 tablet 2 11/22/2021 Active Start: 11-22-2021 take 1 tablet by juan th twice daily abemaciclib (VERZENIO) 150 mg tablet Take 1 tablet (150 mg) by mouth twice daily. 56 tablet 2 11/22/2021 Active Start: 11-22-2021 take 1 tablet by juan th twice daily abemaciclib (VERZENIO) 150 mg tablet Take 1 tablet (150 mg) by mouth twice daily. 56 tablet 2 11/22/2021 Active Start: 11-22-2021 take 1 tablet by juan th twice daily abemaciclib (VERZENIO) 150 mg tablet Take 1 tablet (150 mg) by mouth twice daily. 56 tablet 2 11/22/2021 Active Start: 11-22-2021 take 1 tablet by juan th twice daily abemaciclib (VERZENIO) 150 mg tablet Take 1 tablet (150 mg) by mouth twice daily. 56 tablet 2 11/22/2021 Active Start: 11-22-2021 take 1 tablet by juan th twice daily abemaciclib (VERZENIO) 150 mg tablet Take 1 tablet (150 mg) by mouth twice daily. 56 tablet 2 11/22/2021 Active Start: 11-22-2021 take 1 tablet by juan [facility] twice daily abemaciclib (VERZENIO) 150 mg tablet Take 1 tablet (150 mg) by mouth twice daily. 60 tablet 2 11/22/2021 Active Start: 11-22-2021 take 1 tablet by juan [facility] twice daily abemaciclib (VERZENIO) 150 mg tablet Take 1 tablet (150 mg) by mouth twice daily. 60 tablet 2 11/22/2021 Active Start: 11-22-2021 take 1 tablet by juan [facility] twice daily abemaciclib (VERZENIO) 150 mg tablet Take 1 tablet (150 mg) by mouth twice daily. 60 tablet 2 11/22/2021 Active Start: 11-22-2021 take 1 tablet by juan th twice daily abemaciclib (VERZENIO) 150 mg tablet Take 1 tablet (150 mg) by mouth twice daily. 60 tablet 2 11/22/2021 Active Start: 11-22-2021 take 1 tablet by juan th twice daily abemaciclib (VERZENIO) 150 mg tablet Take 1 tablet (150 mg) by mouth twice daily. 60 tablet 2 11/22/2021 Active Start: 11-22-2021 take 1 tablet by juan th twice daily abemaciclib (VERZENIO) 150 mg tablet Take 1 tablet (150 mg) by mouth twice daily. 60 tablet 2 11/22/2021 Active Comment on above: Take 1 tablet (150 m g) by mouth twice daily. 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 90 tablet 3 08/20/2021 Active Start: 08-13-2021 End: 09-13-2021 take 1 tablet by mouth once daily anastrozole (ARIMIDEX) 1 mg tablet Take 1 tablet by mouth once daily. 30 tablet 5 08/13/2021 09/13/2021 Discontinued Comment on above: [facility] bismuth subsalicylate 262 mg chewable tablet (8 sources) Bismuth Start: 04-13-19 End: 09-13-19 take 2 tablets by mouth four times daily bismuth subsalicylate (PEPTO-BISMOL) 262 mg chewable tablet Take 2 tablets by mouth four times daily for 10 days. 80 tablet 0 04/13/2023 09/13/2023 Discontinued (Discontinued by Patient) Comment on above: Take 2 tablets by mo [facility] four times daily for 10 days. ergocalciferol 1.25 mg oral capsule (20 sources) Provitamin D2 Compound Start: 05-19-19 End: 09-13-19 take 1 capsule by mouth every week ergocalciferol 50,000 unit capsule (VITAMIN D2, DRISDOL) Indications: Malignant neoplasm of upper-outer quadrant of left breast in female, estrogen receptor positive (HCC) , Vitamin D deficiency Take 1 capsule by mouth one time a week. 12 capsule 3 05/19/2023 09/13/2023 Discontinued Start: 11-19-2020 End: 06-14-2022 take 1 capsule by mouth every week ergocalciferol 50,000 unit capsule (VITAMIN D2, DRISDOL) Indications: Malignant neoplasm of upper-outer quadrant of left breast in female, estrogen receptor positive (HCC) , Vitamin D deficiency Take 1 capsule by mouth one time a week. 12 capsule 3 06/14/2022 Active Comment on above: Take 1 capsule by mo [facility] one time a week. 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 30 g 2 11/18/2020 Active Comment on above: Apply 1 application to affected area as needed. omeprazole 40 mg delayed release oral capsule (9 sources) Proton Pump Inhibitor Start: End: take 1 capsule by mouth once daily omeprazole (PRILOSEC) 40 mg capsule Take 1 capsule by mouth once daily. 30 capsule 0 04/11/2023 09/13/2023 Discontinued (Discontinued by Patient) Comment on above: Take 1 capsule by mo [facility] once daily. oxyCODONE hydrochloride 5 mg oral tablet (12 sources) Opioid Agonist Start: End: take 1 tablet by mouth every six hours as needed for pain oxyCODONE IR (ROXICODONE) 5 mg immediate release tablet Indications: Malignant neoplasm of upper-outer quadrant of left breast in female, estrogen receptor positive (HCC) Take 1 tablet by mouth every 6 hours as needed for pain. 15 tablet 0 09/02/2021 09/13/2021 Discontinued Comment on above: Take 1 tablet by [facility] every 6 hours as needed for pain. pantoprazole 40 mg delayed release oral tablet (8 sources) Proton Pump Inhibitor Start: End: take 1 tablet by mouth twice daily pantoprazole DR (PROTONIX) 40 mg tablet Take 1 tablet by mouth two times a day for 10 days. 20 tablet 0 04/13/2023 09/13/2023 Discontinued (Discontinued by Patient) Comment on above: Take 1 tablet by [facility] two times a day for 10 days. microencapsulated potassium chloride 20 meq extended release oral tablet (2 sources) Start: take 1 tablet by mouth once daily potassium chloride ER (K-DUR, KLOR-CON) 20 mEq tablet Take 1 tablet by mouth once daily. 30 tablet 2 2021 Active Comment on above: Take 1 tablet by [facility] once daily. 100 ml zoledronic acid 0.04 mg/ml injection (2 sources) Bisphosphonate Start: 025 End: 4 mg, INTRAVENOUS, Administer over 15 Minutes, ONCE, 1 dose, On Mon04/19/24 at 1130, Hazardous Potential Reproductive Risk Drug: Use appropriate PPE. Start: 11-03-2023 End: 11-03-2023 4 mg, INTRAVENOUS, Administe r over 15 Minutes, ONCE, 1 dose, On Mon11/03/23 at 1130, Hazardous Potential Reproductive Risk Drug: Use appropriate PPE. Problems Active Problems Problem Classification Problem Date Documented Da te Episodic/Chronic Cancer of breast (20 sources) Malignant neoplasm of unspecified site of left female breast; Translations: [Malignant neoplasm of upper-outer quadrant of left female breast] Onset: 09-24-2020 Chronic Cancer of breast (2 sources) History of malignant neoplasm of breast; Translations: [Personal history of malignant neoplasm of breast] Episodic Cardiac dysrhythmias (19 sources) Multiple premature ventricular complexes; Translations: [Ventricular premature depolarization] Onset: 09-13-2023 09-13-2023 Chronic Coronary atherosclerosis and other heart disease (20 sources) Calcification of coronary artery; Translations: [Atherosclerotic heart disease of [place] coronary artery without angina pectoris] Onset: 03-22-2023 03-22-2023 Chronic Diabetes mellitus without complication (1 source) Disorder of glucose metabolism; Translations: [Other abnormal glucose] 11-01-2022 Episodic Disorders of lipid metabolism (20 sources) Pure hypercholesterolemia ; Translations: [Pure hypercholesterolemia , unspecified] Onset: 01-05-2023 01-06-2023 Chronic Diverticulosis and diverticulitis (1 source) Diverticulosis of intestine, part unspecified, without perforation or abscess without bleeding; Translations: [Diverticulosis of intestine, part unspecified, without perforation or abscess without bleeding] Onset: 10-08-2020 Chronic Fracture of lower limb (1 source) Closed fracture of fifth metatarsal bone; Translations: [Nondisplaced fracture of fifth metatarsal bone, left foot, initial encounter for closed fracture] 01-16-2024 Episodic Genitourinary symptoms and ill-defined conditions (1 source) Dysuria; Translations: [Dysuria] Episodic Nonmalignant breast conditions (7 sources) Unspecified lump in the left breast, unspecified quadrant; Translations: [Unspecified lump in unspecified breast] Onset: 09-04-2020 Episodic Nutritional deficiencies (20 sources) Vitamin D deficiency; Translations: [Vitamin D deficiency, unspecified] Onset: 07-14-2021 Chronic Other circulatory disease (2 sources) Elevated blood pressure; Translations: [Elevated blood-pressure reading, without diagnosis of hypertension] 01-04-2023 Episodic Other connective tissue disease (2 sources) Pain in axilla; Translations: [Pain in left upper arm] 09-14-2022 Episodic Other connective tissue disease (1 source) Pain in left foot; Translations: [Pain in left foot] 01-09-2024 Episodic Other gastrointestinal disorders (1 source) Constipation, unspecified; Translations: [Constipation, unspecified] Onset: 10-08-2020 Episodic Other injuries and conditions due to external causes (1 source) Injury of elbow; Translations: [Unspecified injury of unspecified elbow, initial encounter] Episodic Other injuries and conditions due to external causes (1 source) Injury of left foot; Translations: [Unspecified injury of left foot, initial encounter] 01-09-2024 Episodic Other lower respiratory disease (3 sources) Nodule of lung; Translations: [Solitary pulmonary nodule] 03-24-2023 Episodic Other lower respiratory disease (1 source) Multiple nodules of lung; Translations: [Other nonspecific abnormal finding of lung field] 06-12-2023 Episodic Other screening for suspected conditions (not mental disorders or infectious disease) (15 sources) Other abnormal and inconclusive findings on diagnostic imaging of breast; Translations: [At risk of breast cancer] Onset: 09-04-2020 Episodic Residual codes; unclassified (1 source) Postmenopausal state; Translations: [Asymptomatic menopausal state] Episodic Residual codes; unclassified (1 source) Tobacco user; Translations: [Tobacco use] 01-24-2023 Episodic Retinal detachments; defects; vascular occlusion; and retinopathy (2 sources) Cholesterol retinal embolus of right eye; Translations: [Partial retinal artery occlusion, right eye] Onset: 04-04-2024 02-01-2024 Chronic Screening and history of mental health and substance abuse codes (4 sources) Ex-tobacco user; Translations: [Personal history of nicotine dependence] 06-12-2023 Episodic Secondary malignancies (20 sources) Secondary malignant neoplasm of axillary lymph nodes; Translations: [Secondary and unspecified malignant neoplasm of axilla and upper limb lymph nodes] Onset: 10-28-2020 Chronic Secondary malignancies (2 sources) Secondary and unspecified malignant neoplasm of axilla and upper limb lymph nodes; Translations: [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)] Onset: 10-28-2020 Chronic Substance-related disorders (20 sources) Nicotine dependence; Translations: [Nicotine dependence, unspecified, uncomplicated] Onset: 03-25-2021 03-25-2021 Chronic Past or Other Problems Problem Classification Problem Date Documented Da te Episodic/Chronic Deficiency and other anemia (20 sources) Anemia; Translations: [Anemia, unspecified] Onset: 01-12-2021 Resolved: 03-22-2023 01-12-2021 Episodic Other bone disease and musculoskeletal deformities (20 sources) Postmenopausal osteopenia; Translations: [Other specified disorders of bone density and structure, unspecified site] Onset: 11-30-2021 Episodic Other bone disease and musculoskeletal deformities (1 source) Other specified disorders of bone density and structure, unspecified site; Translations: [Osteopenia after menopause] Onset: 11-30-2021 Episodic Other connective tissue disease (1 source) Pain in left foot; Translations: [Left foot pain] Onset: 01-09-2024 Episodic Other gastrointestinal disorders (20 sources) Stool DNA-based colorectal cancer screening positive; Translations: [Other fecal abnormalities] Onset: 02-02-2023 Resolved: 04-25-2023 02-02-2023 Episodic Other injuries and conditions due to external causes (1 source) Unspecified injury of left foot, initial encounter; Translations: [Foot injury, left, initial encounter] Onset: 01-09-2024 Episodic Other non-traumatic joint disorders (20 sources) Bilateral chronic pain of upper limbs; Translations: [Pain in right shoulder] Onset: 01-27-2023 01-04-2023 Episodic Residual codes; unclassified (3 sources) Estrogen receptor positive status [ER+]; Translations: [Estrogen receptor positive status [ER+]] Onset: 09-24-2020 Episodic Residual codes; unclassified (1 source) Asymptomatic menopausal state; Translations: [Osteopenia after menopause] Onset: 11-30-2021 Episodic Skin and subcutaneous tissue infections (20 sources) Cellulitis; Translations: [Cellulitis, unspecified] Onset: 03-24-2021 Resolved: 03-22-2023 03-24-2021 Episodic Results Test Name Value Interpretation Reference Range Facility Basic metabolic 2000 panelon 04-19-2024 Anion gap [Moles/Vol] 11 mmol/L Normal 8-15 [facility] Comment on above: Order Comment: Speci men Type: BLOOD SPECIMENOrdering Facility: [facility] Address: [address] [place], [place] [address] Performed By: #### 2 4321-2 ####[facility] [id number] [place] [address] [place] Calcium [Mass/Vol] 9.8 mg/dL Normal 8.5-10.2 [facility] Comment on above: Order Comment: Speci men Type: BLOOD SPECIMENOrdering Facility: [facility] Address: [address] [place], [place] [address] Performed By: #### 2 4321-2 ####[facility] [id number] [place] [address] [place] Chloride [Moles/Vol] 100 mmol/L Normal 98-107 [facility] Comment on above: Order Comment: Speci men Type: BLOOD SPECIMENOrdering Facility: [facility] Address: [address] [place], [place] [address] Performed By: #### 2 4321-2 ####[facility] [id number] [place] [address] [place] CO2 [Moles/Vol] 27 mmol/L Normal 22-30 [facility] Comment on above: Order Comment: Speci men Type: BLOOD SPECIMENOrdering Facility: [facility] Address: [address] [place] [address] Performed By: #### 2 4321-2 ####[facility] [id number] [place] [address] [place] Creatinine [Mass/Vol] 0.62 mg/dL Normal 0.58-0.96 [facility] Comment on above: Order Comment: Speci men Type: BLOOD SPECIMENOrdering Facility: [facility] Address: [address] [place], [place] [address] Performed By: #### 2 4321-2 ####[facility] [id number] [place] [address] [place] Creatinine and Glomerular filtration rate.predicted panel (S/P/Bld) 98 mL/min/1.73m??? Normal >=60 [facility] Comment on above: Order Comment: Jorge Alberto huff Type: BLOOD SPECIMENOrdering Facility: [facility] Address: [address] [place] [address] Result Comment: Xuan mated Glomerular Filtration Rate (eGFR) is calculated using the 2020 CKD-EPI creatinine equation. This equation utilizes serum creatinine, sex, and age as parameters. The creatinine assay has traceable calibration to isotope dilution-mass spectrometry. Refer to KDIGO guidelines for clinical interpretation. In patients with unstable renal function, e.g. those with acute kidney injury, the eGFR may not accurately reflect actual GFR. Performed By: #### 2 4321-2 ####[facility] [id number] [place] [address] [place] Glucose [Mass/Vol] 109 mg/dL High 74-99 [facility] Comment on above: Order Comment: Jorge Alberto huff Type: BLOOD SPECIMENOrdering Facility: [facility] Address: [address] [place] [address] Result Comment: The [place] Diabetes Association (ADA) provides guidance for cutoff values for fasting glucose and random glucose. The ADA defines fasting as no caloric intake for at least 8 hours. Fasting plasma glucose results between 100 to 125 mg/dL indicate increased risk for diabetes (prediabetes). Fasting plasma glucose results greater than or equal to 126 mg/dL meet the criteria for diagnosis of diabetes. In the absence of unequivocal hyperglycemia, results should be confirmed by repeat testing. In a patient with classic symptoms of hyperglycemia or hyperglycemic crisis, random plasma glucose results greater than or equal to 200 mg/dL meet the criteria for diagnosis of diabetes. Reference: Standards of Medical Care in Diabetes 2016, [place] [employer] Association. Diabetes Care. 2016.39(Suppl 1). Performed By: #### 2 4321-2 ####[facility] [id number] [place] [address] [place] Potassium [Moles/Vol] 4.4 mmol/L Normal 3.7-5.1 [facility] Comment on above: Order Comment: Speci men Type: BLOOD SPECIMENOrdering Facility: [facility] Address: [address] [place] [address] Performed By: #### 2 4321-2 ####[facility] [id number] [place] [address] [place] Sodium [Moles/Vol] 138 mmol/L Normal 136-144 [facility] Comment on above: Order Comment: Speci men Type: BLOOD SPECIMENOrdering Facility: [facility] Address: [address] [place] [address] Performed By: #### 2 4321-2 ####[facility] [id number] [place] [address] [place] Urea nitrogen [Mass/Vol] 12 mg/dL Normal 7-21 [facility] Comment on above: Order Comment: Speci men Type: BLOOD SPECIMENOrdering Facility: [facility] Address: [address] [place] [address] Performed By: #### 2 4321-2 ####[facility] [id number] [place] [address] [place] CNPImani 04-19-2024 CHARIN Telephone (DAVE) -------- ELIDA PENALOZA ([id number]) 1955 F Date Time Provider Department 04/19/24 SALVADOR CARBONE During your visit today, we recorded the following information about you: Liz Adame 04/19/2024 10:23 AM Signed Patient stated at her last visit she was told she only had to complete 1 more treatment. Patient is scheduled 04/19 and again on October 04 Please advise Charles Alexander RN 04/19/2024 11:[address] Carbone note 02/01/24. RECOMMENDATION/PLAN: 1. Plan letrozole 5-7 years (through at least November 2026) 2. See back 1 year. 3. Final zometa March 2024 Please cancel 10/04/24 lab/Zometa and no further need scheduled. Keep all other appointments as scheduled. DAVID Gee Angela 04/19/2024 12:57 PM Signed Lvm for patient to return the call. When patient calls back please inform the below information. 10/04 appointment has been cancelled Rossana Miranda 04/22/2024 8:19 AM Signed Relayed message Allergies As of Date: 04/19/2024 Noted Allergy Reaction COVID-19 (SARS-COV-2) VACCINE, VE*05/18/2021 4 - Hives Date Reviewed: 04/19/2024 Reviewed by: Petty Leone, DAVID - Fully Assessed Prescriptions as of 04/22/2024 - letrozole (FEMARA) 2.5 mg tablet Take 1 tablet by mouth once daily. - MELATONIN ORAL Take 1 tablet by mouth at bedtime as needed. Problem List As Of Date 04/19/2024 Noted Resolved Malignant neoplasm of upper-outer quadrant of l*10/28/2020 Secondary malignant neoplasm of axillary lymph *10/28/2020 Anemia [D64.9] 01/12/2021 03/22/2023 Cellulitis [L03.90] 03/24/2021 03/22/2023 Nicotine use disorder, F17.2 [F17.200] 03/25/2021 Vitamin D deficiency [E55.9] 07/14/2021 Breast cancer metastasized to axillary lymph no*08/08/2021 Breast cancer in female (HCC) [C50.919] 09/02/2021 Osteopenia after menopause [M85.80, Z78.0] 11/30/2021 Pure hypercholesterolemia [E78.00] 01/05/2023 Chronic pain of both shoulders [M25.511, G89.29*01/27/2023 Positive colorectal cancer screening using [place]*02/02/2023 04/25/2023 Coronary artery calcification seen on CAT scan *03/22/2023 PVC (premature ventricular contraction) [I49.3] 09/13/2023 Encounter Status:Closed by CHARLES BABB on 04/22/24 Normal [facility] Lipid 1996 panelon Cholesterol [Mass/Vol] 249 mg/dL High <200 [facility] Comment on above: Order Comment: Speci men Type: BLOOD SPECIMENOrdering Facility: [facility] Address: [address] [place] [address] Result Comment: <200 mg/dL, Desirable 200-239 mg/dL, Borderline high >239 mg/dL, High Performed By: #### 2 4331-1 ####[facility]ORY[facility] [id number] [address] [id number] [place] [address] [place] [facility] Cholesterol in HDL [Mass/Vol] 50 mg/dL Normal >39 [facility] Comment on above: Order Comment: Speci men Type: BLOOD SPECIMENOrdering Facility: [facility] Address: [address] [place] [address] Result Comment: 40-5 9 mg/dL, Acceptable >59 mg/dL, High: Negative risk factor for coronary heart disease <40 mg/dL, Low: Positive risk factor for coronary heart disease Performed By: #### 2 4331-1 ####[facility]ORYCLIA [id number] [address] [id number] [place] [address] [place] Cholesterol in LDL [Mass/Vol] 177 mg/dL High <100 [facility] Comment on above: Order Comment: Speci men Type: BLOOD SPECIMENOrdering Facility: [facility] Address: [address] [place] [address] Result Comment: <100 mg/dL, Optimal 100-129 mg/dL, Near optimal/above optimal 130-159 mg/dL, Borderline high 160-189 mg/dL, High >189 mg/dL, Very high Secondary prevention optimal LDL Cholesterol levels are recommended to be < 70 mg/dL Performed By: #### 2 4331-1 ####[facility]ORATORYCLIA [id number] [address] [id number] [place] [address] [place] Cholesterol in LDL/Cholesterol in HDL [Mass ratio] 3.54 {ratio} High <2.54 [facility] Comment on above: Order Comment: Speci men Type: BLOOD SPECIMENOrdering Facility: [facility] Address: [address] [place] [address] Result Comment: Refe rence: 1. National Cholesterol Education Program ATP III Guideline At-A-Glance Quick Desk Reference: National Heart, Lung, and Blood [place]. National Institutes of Health. 2001: NIH Publication No. 01-3305. 2. An International Atherosclerosis Society position paper: global recommendations for the management of dyslipidemia: executive summary, Atherosclerosis. 2014: 232(2):410-413. Performed By: #### 2 4331-1 ####[facility] LABORATORYCLIA [id number] [address] [id number] [place] [address] [place] Cholesterol in VLDL [Mass/Vol] 22 mg/dL Normal <30 [facility] Comment on above: Order Comment: Jorge Alberto huff Type: BLOOD SPECIMENOrdering Facility: [facility] Address: [address] [place] [address] Performed By: #### 2 4331-1 ####[facility]ORYCLIA [id number] [address] [id number] [address] [place] Cholesterol non HDL [Mass/Vol] 199 mg/dL High <130 [facility] Comment on above: Order Comment: Speci men Type: BLOOD SPECIMENOrdering Facility: [facility] Address: [address] [place] [address] Result Comment: <130 mg/dL, Optimal 130-159 mg/dL, Near optimal/above optimal 160-189 mg/dL, Borderline high 190-219 mg/dL, High >219 mg/dL, Very high Secondary prevention optimal non HDL Cholesterol levels are recommended to be <100 mg/dL Performed By: #### 2 4331-1 ####[facility]ORYCLIA [id number] [address] [id number] [place] [address] [place] Cholesterol.total/Chol esterol in HDL [Mass ratio] 4.98 {ratio} Normal <5.10 [facility] Comment on above: Order Comment: Speci men Type: BLOOD SPECIMENOrdering Facility: [facility] Address: [address] [place] [address] Performed By: #### 2 4331-1 ####[facility]ORYCLIA [id number] [address] [id number] [address] OF [facility] FASTING TIME 7 hrs Normal [facility] Comment on above: Order Comment: Speci men Type: BLOOD SPECIMENOrdering Facility: [facility] Address: [address] [place] [address] Performed By: #### 2 4331-1 ####[facility]ORYCLIA [id number] [address] [id number] [address] [place] Triglyceride [Mass/Vol] 108 mg/dL Normal <150 [facility] Comment on above: Order Comment: Speci men Type: BLOOD SPECIMENOrdering Facility: [facility] Address: [address] [place] [address] Result Comment: <150 mg/dL, Normal 150-199 mg/dL, Borderline high 200-499 mg/dL, High >499 mg/dL, Very high Performed By: #### 2 4331-1 ####[facility] LABORATORYCLIA [id number] [place], [place] [address] [place] [address] STATES OF [facility] [id number] [address] OF [facility] US CAROTID ARTERIES GERARDO VAS LABon 04-04-2024 CAROTID ARTERIES [facility] Non-Invasive Vascular Laboratory [facility] Carotid Duplex Bilateral/Complete Date of service/time: 04/04/2024 12:34:54 PM Name: ELIDA PENALOZA Date of : 1955 Age: 68 years Gender: F Clinical Indication Hollenhorst plaque, right eye. TECHNIQUE -------- A carotid duplex ultrasound examination was performed, including grayscale imaging and color Doppler and spectral Doppler examination of the below mentioned arteries. FINDINGS -------- RIGHT SIDE Common carotid artery: Origin: PSV: 82 cm/s. EDV: 14 cm/s. Proximal: PSV: 68 cm/s. EDV: 15 cm/s. Mid: PSV: 64 cm/s. EDV: 21 cm/s. Distal: PSV: 58 cm/s. EDV: 20 cm/s. Mild heterogeneous plaque at distal. Internal carotid artery: Origin: PSV: 93 cm/s. EDV: 27 cm/s. Proximal: PSV: 74 cm/s. EDV: 18 cm/s. Mid: PSV: 91 cm/s. EDV: 26 cm/s. Distal: PSV: 70 cm/s. EDV: 22 cm/s. Moderate heterogeneous plaque at origin. ICA/CCA Ratio: 1.6 External carotid artery: Origin: PSV: 339 cm/s. EDV: 66 cm/s. Proximal: PSV: 123 cm/s. EDV: 18 cm/s. Moderate homogeneous plaque at origin. Subclavian artery: Origin: PSV: 199 cm/s. EDV: 18 cm/s. Moderate heterogeneous plaque at origin. Innominate artery: PSV: 112 cm/s. EDV: 17 cm/s. Vertebral artery: PSV: 94 cm/s. EDV: 25 cm/s. LEFT SIDE Common carotid artery: Proximal: PSV: 66 cm/s. EDV: 15 cm/s. Mid: PSV: 66 cm/s. EDV: 20 cm/s. Distal: PSV: 70 cm/s. EDV: 23 cm/s. Mild heterogeneous plaque at distal. Internal carotid artery: Origin: PSV: 153 cm/s. EDV: 38 cm/s. Proximal: PSV: 107 cm/s. EDV: 25 cm/s. Mid: PSV: 94 cm/s. EDV: 31 cm/s. Distal: PSV: 80 cm/s. EDV: 25 cm/s. Moderate heterogeneous plaque at origin. ICA/CCA Ratio: 2.2 External carotid artery: Origin: PSV: 481 cm/s. EDV: 119 cm/s. Moderate heterogeneous plaque at origin. Subclavian artery: Proximal: PSV: 446 cm/s. EDV: 83 cm/s. Vertebral artery: PSV: 35 cm/s. EDV: 13 cm/s. IMPRESSION Please note: the new carotid interpretation criteria are used as recommended by [employer] Commission. RIGHT SIDE Common carotid artery: Plaque visualized without evidence of hemodynamically significant stenosis. Internal carotid artery: <50% stenosis consistent with mild carotid artery disease. Tortuous vessel at mid . -Plaque noted appearing >50%; however, velocities and ICA/CCA Ratio do not meet >50% criteria. External carotid artery: Elevated velocities and plaque noted. Vertebral artery: Patent and antegrade flow noted. Subclavian artery: Plaque visualized without evidence of hemodynamically significant stenosis. LEFT SIDE Common carotid artery: Plaque visualized without evidence of hemodynamically significant stenosis. Internal carotid artery: 50-69% stenosis consistent with moderate carotid artery disease. Consider referral to a vascular specialist unless already implemented. Tortuous vessel at mid . External carotid artery: Elevated velocities and plaque noted. Vertebral artery: Patent and antegrade flow noted. Subclavian artery: 50-99% stenosis. Technologist: Yaz Candelario RVT, [facility] Ordering physician: RONN WANG Interpreting physician: Danilo Mondragon MD Final CC [employer] [facility] Image : [id number] See Link below for Image Normal [facility] CNOVSPon 02-01-2024 CNOVSP Visit (SP) Office (HEMAWS) -------- ELIDA PENALOZA ([id number]) 1955 F Date Time Provider Department 02/01/24 9:00 AM SALVADOR CARBONE During your visit today, we recorded the following information about you: Temperature Pulse Blood pressure Weight 97.7 degrees 90/minute 179/98 53.5 kg Height 1.595 m Salvador Carbone MD 02/01/2024 11:28 AM Signed (Elements copied from my note dated March 17, 2023, have been reviewed and updated where appropriate, and all reflect current assessment and medical decision making from today's encounter, February 01, 2024) HISTORY OF PRESENT ILLNESS: Elida Penaloza is a 68 year old female history left breast cancer ILC ER+/TN+/Her2-, dx 09-04-20, had NAC with dd AC T then mastectomy. ypT1N1. On letrozole since November 2021. Notes some left arm chest discomfort Here for follow up, doing ok. Broke her foot. Dxa stable Calcium intake should be ok with her diet. CLINICAL IMPRESSION: Breast cancer as above. RECOMMENDATION/PLAN: 1. Plan letrozole 5-7 years (through at least November 2026) 2. See back 1 year. 3. Final zometa March 2024 Written and verbal health teaching given to patient, patient verbalizes understanding and agrees with treatment plan. PAST MEDICAL HISTORY Diagnosis Date Anemia 01/12/2021 Breast cancer (HCC) 09/24/2020 left breast and lymph noder Cellulitis 03/24/2021 Coronary artery calcification seen on CAT scan 03/22/2023 Helicobacter pylori gastritis 04/15/2023 Nicotine use disorder, F17.2 03/25/2021 Osteopenia Positive colorectal cancer screening using Cologuard test 02/02/2023 Pure hypercholesterolemia 01/05/2023 PAST SURGICAL HISTORY Procedure Laterality Date BREAST BIOPSY HX Left 09/24/2020 COLONOSCOPY WITH BIOPSY (34139) 04/11/2023 EGD DIAGNOSTIC 04/11/2023 INSJ TUNNELED CTR VAD W/SUBQ PORT AGE 5 YR/> 01/18/2021 and removal of old port a cath LIGATE FALLOPIAN TUBE 1989 MASTECTOMY HX MASTECTOMY, SIMPLE, COMPLETE Left 08/2021 PAST SURGICAL HISTORY OF 1985 Bunions removed from both feet PORTOCATH PLACEMENT 11/04/2020 malfunctioned FAMILY HISTORY Problem Relation Age of Onset Breast Cancer Mother Melanoma Father No Known Problems Sister Melanoma Brother Seizures Brother other (AV malformation brain) Brother Social History Tobacco Use Smoking status: Former Current packs/day: 0.00 Average packs/day: 1 pack/day for 45.0 years (45.0 ttl pk-yrs) Types: Cigarettes Start date: 05/13/1978 Quit date: 05/14/2023 Years since quittin.7 Smokeless tobacco: Never Vaping Use Vaping status: Never Used Substance Use Topics Alcohol use: Yes Comment: rare 1 drink Drug use: Yes Types: Marijuana Comment: Medical Marijuana card ALLERGIES: ALLERGIES Allergen Reactions Covid-19 (Sars-Cov-* Hives CURRENT OUTPATIENT MEDICATIONS: letrozole (FEMARA) 2.5 mg tablet Take 1 tablet by mouth once daily. MELATONIN ORAL Take 1 tablet by mouth at bedtime as needed. REVIEW OF SYSTEMS: GENERAL: No fever, night sweats, weight loss or malaise. All other reviewed and negative other than HPI. PHYSICAL EXAMINATION: VITAL SIGNS: BP 179/98 Pulse 90 Temp (Src) 97.7 (Temporal) Ht 5' 2.795 (1.60m) Wt 118 lb (53.5kg) SpO2 95% BMI 21.04 kg/(m2). GENERAL APPEARANCE: Well appearing, in no acute distress, alert and oriented x3, well-hydrated, well nourished. NECK: Supple, no JVD or lymphadenopathy, LEFT CHEST: Smooth mastectomy scar, no masses or adenopathy RIGHT BREAST: No masses or adenopathy I spent a total of 30 minutes on the date of the service which included preparing to see the patient, [id number] patient care, completing clinical documentation, obtaining and/or reviewing separately obtained history, performing a medically appropriate examination, counseling and educating the patient/family/caregiver , ordering medications, tests, or procedures, independently interpreting results (not separately reported), and communicating results to the patient/family/caregiver . Electronically Signed: Salvador Carbone MD February 01, 2024 Allergies As of Date: 02/01/2024 Noted Allergy Reaction COVID-19 (SARS-COV-2) VACCINE, VE*05/18/2021 4 - Hives Date Reviewed: 02/01/2024 Reviewed by: Shaji Garza MA - Fully Assessed Reason for Visit: Established Patient [175] Primary Visit Diagnosis:Encounter for screening mammogram for high-risk patient [Z12.31] Other Visit Diagnosis:Breast cancer metastasized to axillary lymph node, left (HCC) [C50.912, C77.3] Order(s):CANELO SCREENING [[id number]] Order #: [id number] FUTURE Follow-up and Disposition History for Encounter Date Provider Department Center 02/01/2024 [id number] CARBONE Prescriptions as of 02/01/2024 - letrozole (FEMARA) 2.5 mg tablet Take 1 tablet by mouth once daily. - MELATONIN ORAL Take 1 table (more content not included)... Normal [facility] Jared 02-01-2024 CHARIN Telephone (INTMWS) -------- ELIDA PENALOZA ([id number]) 1955 F Date Time Provider Department 02/01/24 RONN WANG INTMWS During your visit today, we recorded the following information about you: Melida Montiel LPN 02/01/2024 12:[address] Damon haas, states that she was doing an eye exam and patient has plaque in the retinal vessels in her right eye. She is not having any symptoms but it is recommended that she have a full stroke work up with a Carotid doppler. Patient asked that everything go through PCP office. Once their report is completed they will fax to our office. Patient expecting a call from PCP office with next steps. Please advise. Ronn Wang MD 02/01/2024 5:51 PM Signed ASSESSMENT/PLAN: 1. 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 Dimple Hall LPN, MA 02/02/2024 10:25 AM Signed Patient is scheduled Dimple Jorge MA Allergies As of Date: 02/01/2024 Noted Allergy Reaction COVID-19 (SARS-COV-2) VACCINE, VE*05/18/2021 4 - Hives Date Reviewed: 02/01/2024 Reviewed by: Shaji Garza MA - Fully Assessed Primary Visit Diagnosis:Hollenhorst plaque, 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] Order(s):US CAROTID ARTERIES [facility] [[id number]] Order #: [id number] FUTURE Prescriptions as of 02/02/2024 - letrozole (FEMARA) 2.5 mg tablet Take 1 tablet by mouth once daily. - MELATONIN ORAL Take 1 tablet by mouth at bedtime as needed. Problem List As Of Date 02/01/2024 Noted Resolved Malignant neoplasm of upper-outer quadrant of l*10/28/2020 Secondary malignant neoplasm of axillary lymph *10/28/2020 Anemia [D64.9] 01/12/2021 03/22/2023 Cellulitis [L03.90] 03/24/2021 03/22/2023 Nicotine use disorder, F17.2 [F17.200] 03/25/2021 Vitamin D deficiency [E55.9] 07/14/2021 Breast cancer metastasized to axillary lymph no*08/08/2021 Breast cancer in female (HCC) [C50.919] 09/02/2021 Osteopenia after menopause [M85.80, Z78.0] 11/30/2021 Pure hypercholesterolemia [E78.00] 01/05/2023 Chronic pain of both shoulders [M25.511, G89.29*01/27/2023 Positive colorectal cancer screening using [place]*02/02/2023 04/25/2023 Coronary artery calcification seen on CAT scan *03/22/2023 PVC (premature ventricular contraction) [I49.3] 09/13/2023 Encounter Status:Closed by DIMPLE JORGE [facility]02[facility] ELIDA PENALOZA ([id number]) 1955 F Date Time Provider Department 02/01/24 LETTY BRYANT During your visit today, we recorded the following information about you: Letty Bryant LISW 02/01/2024 8:58 AM Signed SOCIAL WORK FOLLOW UP NOTE: [facility] Date of service: February 01, 2024 Elidanova Penaloza is being seen for a follow up social work visit. Today's visit includes: patient SW met with pt this date prior to OV. She is inquiring about post-mastectomy supplies. SW answered all questions as able and provided some donated items for pt. No other needs identified. LUCINDA Pelayo Allergies As of Date: 02/01/2024 Noted Allergy Reaction COVID-19 (SARS-COV-2) VACCINE, VE*05/18/2021 4 - Hives Date Reviewed: 02/01/2024 Reviewed by: Shaji Garza MA - Fully Assessed Reason for Visit: Social Work Services [507] Prescriptions as of 02/01/2024 - letrozole (FEMARA) 2.5 mg tablet Take 1 tablet by mouth once daily. - MELATONIN ORAL Take 1 tablet by mouth at bedtime as needed. Problem List As Of Date 02/01/2024 Noted Resolved Malignant neoplasm of upper-outer quadrant of l*10/28/2020 Secondary malignant neoplasm of axillary lymph *10/28/2020 Anemia [D64.9] 01/12/2021 03/22/2023 Cellulitis [L03.90] 03/24/2021 03/22/2023 Nicotine use disorder, F17.2 [F17.200] 03/25/2021 Vitamin D deficiency [E55.9] 07/14/2021 Breast cancer metastasized to axillary lymph no*08/08/2021 Breast cancer in female (HCC) [C50.919] 09/02/2021 Osteopenia after menopause [M85.80, Z78.0] 11/30/2021 Pure hypercholesterolemia [E78.00] 01/05/2023 Chronic pain of both shoulders [M25.511, G89.29*01/27/2023 Positive colorectal cancer screening using [place]*02/02/2023 04/25/2023 Coronary artery calcification seen on CAT scan *03/22/2023 PVC (premature ventricular contraction) [I49.3] 09/13/2023 Encounter Status:Closed by LETTY BRYANT on 02/01/24 Normal [facility] BD DXA - AXIAL SKELETONon BD DXA - AXIAL SKELETON * * *Final Report* * * DATE OF EXAM: Jan 29 2024 12:55PM WRB 0804 - BD DXA - AXIAL SKELETON / PROCEDURE REASON: multiple diagnoses * * * * Physician Interpretation * * * * EXAMINATION: DXA BONE DENSITOMETRY BD DXA - AXIAL SKELETON, BD DXA TRABECLR BONE SCORE (TBS) PATIENT DEMOGRAPHICS: Age: 68 years, Gender: Female SCANNER INFORMATION: DXA Model: [employer] - AGELON ? C [id number] Date Scanned: 01/29/2024 12:55 PM CLINICAL HISTORY: DIAGNOSTIC Osteopenia after menopause Osteopenia after menopause . RISK FACTORS FOR OSTEOPOROSIS AND ASSOCIATED FRACTURES REPORTED BY THIS PATIENT: Please refer to Bone Health Questionnaire in the EMR CURRENT THERAPY: Please refer to Bone Health Questionnaire in the EMR TECHNICAL LIMITATIONS: None RESULTS: Lumbar spine (L1, L2, L3, L4): 1.047 g/cm2, T-score 0.0, Z-score 1.9 Lumbar spine: 2021: 0.967 g/cm2 Statistically significant increase Right Femoral Neck: 0.764 g/cm2, T-score -0.8, Z-score 0.8 Right Total Hip: 0.909 g/cm2, T-score -0.3, Z-score 1.0 Left Femoral Neck: 0.663 g/cm2, T-score -1.7, Z-score -0.1 Left Femoral Neck: 2021: 0.649 g/cm2 No statistically significant change Left Total Hip: 0.919 g/cm2, T-score -0.2, Z-score 1.1 Left Total Hip: 2021: 0.892 g/cm2 No statistically significant change CHANGE IS STATISTICALLY SIGNIFICANT IN THE SPINE OR HIP IF GREATER THAN OR EQUAL TO 0.04 g/cm2 VERTEBRAL FRACTURE ASSESSMENT Not performed. TRABECULAR BONE ASSESSMENT TBS score: 1.297 Bone micro-architecture: Partially degraded (1.231 - 1.310) IMPRESSION: THE LOWEST T-SCORE IS -1.7 IN THE LEFT HIP 1) DIAGNOSIS (based on BMD alone): OSTEOPENIA Caution: Medical conditions other than osteoporosis may cause low bone density, such as osteomalacia or renal osteodystrophy. Clinical correlation is necessary. 2) FRACTURE RISK (Based on TBS adjusted FRAX): 10-year absolute fracture risk: - major osteoporotic fracture = 7.7 % - hip fracture = 0.6 % - A diagnosis of Osteoporosis, a 10 year probability of hip fracture greater than or equal to 3% or a 10 year probability of any major osteoporosis-related fracture greater than or equal to 20% should be considered for treatment. - DXA scanner generated FRAX calculations may slightly differ from online FRAX calculations due to differences in software versions. - All recommendations and calculations are to be considered as guidelines and should not replace sound clinical judgement - Caution: Fracture risk may be increased independent of BMD in patients with corticosteroid use, age greater than 65 years, or a history of prior fragility fracture. RECOMMENDATIONS: Follow-up in 2 years or as clinically indicated. Patients that are taking corticosteroids, are transplant recipients or have hyperparathyroidism should have annual follow-up. Follow-up scans should always be done on the same machine for accurate comparison. FOR MORE INFORMATION ABOUT DIAGNOSIS AND TREATMENT: [facility] for Osteoporosis and Metabolic Bone Disease:? [email or web address]/os [email or web address] National Osteoporosis Foundation:? www.nof.org International Society of Clinical Densitometry www.[email or web address] Home Planning Consultant Salesperson: KARL Transcribe Date/Time: Jan 29 2024 4:04P Dictated by : WERNER HART MD This examination was interpreted and the report reviewed and electronically signed by: WERNER HART MD on Jan 29 2024 4:06PM EST [id number] -1.7 Normal [facility] BD DXA TRABECLR BONE SCORE ( TBS)on 01-29-2024 BD DXA TRABECLR BONE SCORE (TBS) * * *Final Report* * * DATE OF EXAM: Jan 29 2024 12:55PM B 0801 - BD DXA TRABECLR BONE SCORE (TBS) / PROCEDURE REASON: multiple diagnoses * * * * Physician Interpretation * * * * EXAMINATION: DXA BONE DENSITOMETRY BD DXA - AXIAL SKELETON, BD DXA TRABECLR BONE SCORE (TBS) PATIENT DEMOGRAPHICS: Age: 68 years, Gender: Female SCANNER INFORMATION: DXA Model: [employer] - AGELON ? C [id number] Date Scanned: 01/29/2024 12:55 PM CLINICAL HISTORY: DIAGNOSTIC Osteopenia after menopause Osteopenia after menopause . RISK FACTORS FOR OSTEOPOROSIS AND ASSOCIATED FRACTURES REPORTED BY THIS PATIENT: Please refer to Bone Health Questionnaire in the EMR CURRENT THERAPY: Please refer to Bone Health Questionnaire in the EMR TECHNICAL LIMITATIONS: None RESULTS: Lumbar spine (L1, L2, L3, L4): 1.047 g/cm2, T-score 0.0, Z-score 1.9 Lumbar spine: 2021: 0.967 g/cm2 Statistically significant increase Right Femoral Neck: 0.764 g/cm2, T-score -0.8, Z-score 0.8 Right Total Hip: 0.909 g/cm2, T-score -0.3, Z-score 1.0 Left Femoral Neck: 0.663 g/cm2, T-score -1.7, Z-score -0.1 Left Femoral Neck: 2021: 0.649 g/cm2 No statistically significant change Left Total Hip: 0.919 g/cm2, T-score -0.2, Z-score 1.1 Left Total Hip: 2021: 0.892 g/cm2 No statistically significant change CHANGE IS STATISTICALLY SIGNIFICANT IN THE SPINE OR HIP IF GREATER THAN OR EQUAL TO 0.04 g/cm2 VERTEBRAL FRACTURE ASSESSMENT Not performed. TRABECULAR BONE ASSESSMENT TBS score: 1.297 Bone micro-architecture: Partially degraded (1.231 - 1.310) IMPRESSION: THE LOWEST T-SCORE IS -1.7 IN THE LEFT HIP 1) DIAGNOSIS (based on BMD alone): OSTEOPENIA Caution: Medical conditions other than osteoporosis may cause low bone density, such as osteomalacia or renal osteodystrophy. Clinical correlation is necessary. 2) FRACTURE RISK (Based on TBS adjusted FRAX): 10-year absolute fracture risk: - major osteoporotic fracture = 7.7 % - hip fracture = 0.6 % - A diagnosis of Osteoporosis, a 10 year probability of hip fracture greater than or equal to 3% or a 10 year probability of any major osteoporosis-related fracture greater than or equal to 20% should be considered for treatment. - DXA scanner generated FRAX calculations may slightly differ from online FRAX calculations due to differences in software versions. - All recommendations and calculations are to be considered as guidelines and should not replace sound clinical judgement - Caution: Fracture risk may be increased independent of BMD in patients with corticosteroid use, age greater than 65 years, or a history of prior fragility fracture. RECOMMENDATIONS: Follow-up in 2 years or as clinically indicated. Patients that are taking corticosteroids, are transplant recipients or have hyperparathyroidism should have annual follow-up. Follow-up scans should always be done on the same machine for accurate comparison. FOR MORE INFORMATION ABOUT DIAGNOSIS AND TREATMENT: [facility] for Osteoporosis and Metabolic Bone Disease:? [email or web address]/os [email or web address] National Osteoporosis Foundation:? www.nof.org International Society of Clinical Densitometry www.[email or web address] Home Planning Consultant Salesperson: PSCB Transcribe Date/Time: Jan 29 2024 4:04P Dictated by : WERNER HART MD This examination was interpreted and the report reviewed and electronically signed by: WERNER HART MD on Jan 29 2024 4:06PM EST [id number] -[id number] Normal [facility] DXA Femur [T-score] Bone den pietro 01-29-2024 * * *Final Report* * * DATE OF EXAM: Jan 29 2024 12:55PM WRB 0801 - BD DXA TRABECLR BONE SCORE (TBS) / PROCEDURE REASON: multiple diagnoses * * * * Physician Interpretation * * * * EXAMINATION: DXA BONE DENSITOMETRY BD DXA - AXIAL SKELETON, BD DXA TRABECLR BONE SCORE (TBS) PATIENT DEMOGRAPHICS: Age: 68 years, Gender: Female SCANNER INFORMATION: DXA Model: [employer] - AGELON ? C [id number] Date Scanned: 01/29/2024 12:55 PM CLINICAL HISTORY: DIAGNOSTIC Osteopenia after menopause Osteopenia after menopause . RISK FACTORS FOR OSTEOPOROSIS AND ASSOCIATED FRACTURES REPORTED BY THIS PATIENT: Please refer to Bone Health Questionnaire in the EMR CURRENT THERAPY: Please refer to Bone Health Questionnaire in the EMR TECHNICAL LIMITATIONS: None RESULTS: Lumbar spine (L1, L2, L3, L4): 1.047 g/cm2, T-score 0.0, Z-score 1.9 Lumbar spine: 2021: 0.967 g/cm2 Statistically significant increase Right Femoral Neck: 0.764 g/cm2, T-score -0.8, Z-score 0.8 Right Total Hip: 0.909 g/cm2, T-score -0.3, Z-score 1.0 Left Femoral Neck: 0.663 g/cm2, T-score -1.7, Z-score -0.1 Left Femoral Neck: 2021: 0.649 g/cm2 No statistically significant change Left Total Hip: 0.919 g/cm2, T-score -0.2, Z-score 1.1 Left Total Hip: 2021: 0.892 g/cm2 No statistically significant change CHANGE IS STATISTICALLY SIGNIFICANT IN THE SPINE OR HIP IF GREATER THAN OR EQUAL TO 0.04 g/cm2 VERTEBRAL FRACTURE ASSESSMENT Not performed. TRABECULAR BONE ASSESSMENT TBS score: 1.297 Bone micro-architecture: Partially degraded (1.231 - 1.310) DIVISION OF RADIOLOGY Provider, Isabel Saha [place] - 01/29/2024 * * *Final Report* * * DATE OF EXAM: Jan 29 2024 12:55PM WRB 0801 - BD DXA TRABECLR BONE SCORE (TBS) / PROCEDURE REASON: multiple diagnoses * * * * Physician Interpretation * * * * EXAMINATION: DXA BONE DENSITOMETRY BD DXA - AXIAL SKELETON, BD DXA TRABECLR BONE SCORE (TBS) PATIENT DEMOGRAPHICS: Age: 68 years, Gender: Female SCANNER INFORMATION: DXA Model: [employer] - AGELON ? C [id number] Date Scanned: 01/29/2024 12:55 PM CLINICAL HISTORY: DIAGNOSTIC Osteopenia after menopause Osteopenia after menopause . RISK FACTORS FOR OSTEOPOROSIS AND ASSOCIATED FRACTURES REPORTED BY THIS PATIENT: Please refer to Bone Health Questionnaire in the EMR CURRENT THERAPY: Please refer to Bone Health Questionnaire in the EMR TECHNICAL LIMITATIONS: None RESULTS: Lumbar spine (L1, L2, L3, L4): 1.047 g/cm2, T-score 0.0, Z-score 1.9 Lumbar spine: 2021: 0.967 g/cm2 Statistically significant increase Right Femoral Neck: 0.764 g/cm2, T-score -0.8, Z-score 0.8 Right Total Hip: 0.909 g/cm2, T-score -0.3, Z-score 1.0 Left Femoral Neck: 0.663 g/cm2, T-score -1.7, Z-score -0.1 Left Femoral Neck: 2021: 0.649 g/cm2 No statistically significant change Left Total Hip: 0.919 g/cm2, T-score -0.2, Z-score 1.1 Left Total Hip: 2021: 0.892 g/cm2 No statistically significant change CHANGE IS STATISTICALLY SIGNIFICANT IN THE SPINE OR HIP IF GREATER THAN OR EQUAL TO 0.04 g/cm2 VERTEBRAL FRACTURE ASSESSMENT Not performed. TRABECULAR BONE ASSESSMENT TBS score: 1.297 Bone micro-architecture: Partially degraded (1.231 - 1.310) IMPRESSION IMPRESSION: THE LOWEST T-SCORE IS -1.7 IN THE LEFT HIP 1) DIAGNOSIS (based on BMD alone): OSTEOPENIA Caution: Medical conditions other than osteoporosis may cause low bone density, such as osteomalacia or renal osteodystrophy. Clinical correlation is necessary. 2) FRACTURE RISK (Based on TBS adjusted FRAX): 10-year absolute fracture risk: - major osteoporotic fracture = 7.7 % - hip fracture = 0.6 % - A diagnosis of Osteoporosis, a 10 year probability of hip fracture greater than or equal to 3% or a 10 year probability of any major osteoporosis-related fracture greater than or equal to 20% should be considered for treatment. - DXA scanner generated FRAX calculations may slightly differ from online FRAX calculations due to differences in software versions. - All recommendations and calculations are to be considered as guidelines and should not replace sound clinical judgement - Caution: Fracture risk may be increased independent of BMD in patients with corticosteroid use, age greater than 65 years, or a history of prior fragility fracture. RECOMMENDATIONS: Follow-up in 2 years or as clinically indicated. Patients that are taking corticosteroids, are transplant recipients or have hyperparathyroidism should have annual follow-up. Follow-up scans should always be done on the same machine for accurate comparison. FOR MORE INFORMATION ABOUT DIAGNOSIS AND TREATMENT: [facility] for Osteoporosis and Metabolic Bone Disease:? [email or web address]/os [email or web address] National Osteoporosis Foundation:? www.nof.org International Society of Clinical Densitometry www.[email or web address] Home Planning Consultant Salesperson: KARL Transcribe Date/Time: Jan 29 2024 4:04P Dictated by : WERNER HART MD This examination was interpreted and the report reviewed and electronically signed by: WERNER HART MD on Jan 29 2024 4:06PM EST [facility] DXA Skeletal system.axial Vi ews for bone densityon 01-29-2024 * * *Final Report* * * DATE OF EXAM: Jan 29 2024 12:55PM KARLA 0804 - BD DXA - AXIAL SKELETON / PROCEDURE REASON: multiple diagnoses * * * * Physician Interpretation * * * * EXAMINATION: DXA BONE DENSITOMETRY BD DXA - AXIAL SKELETON, BD DXA TRABECLR BONE SCORE (TBS) PATIENT DEMOGRAPHICS: Age: 68 years, Gender: Female SCANNER INFORMATION: DXA Model: [employer] - AGELON ? C [id number] Date Scanned: 01/29/2024 12:55 PM CLINICAL HISTORY: DIAGNOSTIC Osteopenia after menopause Osteopenia after menopause . RISK FACTORS FOR OSTEOPOROSIS AND ASSOCIATED FRACTURES REPORTED BY THIS PATIENT: Please refer to Bone Health Questionnaire in the EMR CURRENT THERAPY: Please refer to Bone Health Questionnaire in the EMR TECHNICAL LIMITATIONS: None RESULTS: Lumbar spine (L1, L2, L3, L4): 1.047 g/cm2, T-score 0.0, Z-score 1.9 Lumbar spine: 2021: 0.967 g/cm2 Statistically significant increase Right Femoral Neck: 0.764 g/cm2, T-score -0.8, Z-score 0.8 Right Total Hip: 0.909 g/cm2, T-score -0.3, Z-score 1.0 Left Femoral Neck: 0.663 g/cm2, T-score -1.7, Z-score -0.1 Left Femoral Neck: 2021: 0.649 g/cm2 No statistically significant change Left Total Hip: 0.919 g/cm2, T-score -0.2, Z-score 1.1 Left Total Hip: 2021: 0.892 g/cm2 No statistically significant change CHANGE IS STATISTICALLY SIGNIFICANT IN THE SPINE OR HIP IF GREATER THAN OR EQUAL TO 0.04 g/cm2 VERTEBRAL FRACTURE ASSESSMENT Not performed. TRABECULAR BONE ASSESSMENT TBS score: 1.297 Bone micro-architecture: Partially degraded (1.231 - 1.310) DIVISION OF RADIOLOGY Provider, [facility] - 01/29/2024 * * *Final Report* * * DATE OF EXAM: Jan 29 2024 12:55PM [facility] 0804 - BD DXA - AXIAL SKELETON / PROCEDURE REASON: multiple diagnoses * * * * Physician Interpretation * * * * EXAMINATION: DXA BONE DENSITOMETRY BD DXA - AXIAL SKELETON, BD DXA TRABECLR BONE SCORE (TBS) PATIENT DEMOGRAPHICS: Age: 68 years, Gender: Female SCANNER INFORMATION: DXA Model: [employer] - AGELON ? C [id number] Date Scanned: 01/29/2024 12:55 PM CLINICAL HISTORY: DIAGNOSTIC Osteopenia after menopause Osteopenia after menopause . RISK FACTORS FOR OSTEOPOROSIS AND ASSOCIATED FRACTURES REPORTED BY THIS PATIENT: Please refer to Bone Health Questionnaire in the EMR CURRENT THERAPY: Please refer to Bone Health Questionnaire in the EMR TECHNICAL LIMITATIONS: None RESULTS: Lumbar spine (L1, L2, L3, L4): 1.047 g/cm2, T-score 0.0, Z-score 1.9 Lumbar spine: 2021: 0.967 g/cm2 Statistically significant increase Right Femoral Neck: 0.764 g/cm2, T-score -0.8, Z-score 0.8 Right Total Hip: 0.909 g/cm2, T-score -0.3, Z-score 1.0 Left Femoral Neck: 0.663 g/cm2, T-score -1.7, Z-score -0.1 Left Femoral Neck: 2021: 0.649 g/cm2 No statistically significant change Left Total Hip: 0.919 g/cm2, T-score -0.2, Z-score 1.1 Left Total Hip: 2021: 0.892 g/cm2 No statistically significant change CHANGE IS STATISTICALLY SIGNIFICANT IN THE SPINE OR HIP IF GREATER THAN OR EQUAL TO 0.04 g/cm2 VERTEBRAL FRACTURE ASSESSMENT Not performed. TRABECULAR BONE ASSESSMENT TBS score: 1.297 Bone micro-architecture: Partially degraded (1.231 - 1.310) IMPRESSION IMPRESSION: THE LOWEST T-SCORE IS -1.7 IN THE LEFT HIP 1) DIAGNOSIS (based on BMD alone): OSTEOPENIA Caution: Medical conditions other than osteoporosis may cause low bone density, such as osteomalacia or renal osteodystrophy. Clinical correlation is necessary. 2) FRACTURE RISK (Based on TBS adjusted FRAX): 10-year absolute fracture risk: - major osteoporotic fracture = 7.7 % - hip fracture = 0.6 % - A diagnosis of Osteoporosis, a 10 year probability of hip fracture greater than or equal to 3% or a 10 year probability of any major osteoporosis-related fracture greater than or equal to 20% should be considered for treatment. - DXA scanner generated FRAX calculations may slightly differ from online FRAX calculations due to differences in software versions. - All recommendations and calculations are to be considered as guidelines and should not replace sound clinical judgement - Caution: Fracture risk may be increased independent of BMD in patients with corticosteroid use, age greater than 65 years, or a history of prior fragility fracture. RECOMMENDATIONS: Follow-up in 2 years or as clinically indicated. Patients that are taking corticosteroids, are transplant recipients or have hyperparathyroidism should have annual follow-up. Follow-up scans should always be done on the same machine for accurate comparison. FOR MORE INFORMATION ABOUT DIAGNOSIS AND TREATMENT: [facility] for Osteoporosis and Metabolic Bone Disease:? [email or web address]/os yahir National Osteoporosis Foundation:? www.nof.org International Society of Clinical Densitometry www.[email or web address].org Home Planning Consultant Salesperson: KARL Transcribe Date/Time: Jan 29 2024 4:04P Dictated by : WERNER HART MD This examination was interpreted and the report reviewed and electronically signed by: WERNER HART MD on Jan 29 2024 4:06PM [facility] No Panel InformationOrdered By: [facility] Provider on 01-29-2024 LOWEST T-SCORE -1.7 [facility] No Panel Informationon 01-28 IMPRESSION: THE LOWEST T-SCORE IS -1.7 IN THE LEFT HIP 1) DIAGNOSIS (based on BMD alone): OSTEOPENIA Caution: Medical conditions other than osteoporosis may cause low bone density, such as osteomalacia or renal osteodystrophy. Clinical correlation is necessary. 2) FRACTURE RISK (Based on TBS adjusted FRAX): 10-year absolute fracture risk: - major osteoporotic fracture = 7.7 % - hip fracture = 0.6 % - A diagnosis of Osteoporosis, a 10 year probability of hip fracture greater than or equal to 3% or a 10 year probability of any major osteoporosis-related fracture greater than or equal to 20% should be considered for treatment. - DXA scanner generated FRAX calculations may slightly differ from online FRAX calculations due to differences in software versions. - All recommendations and calculations are to be considered as guidelines and should not replace sound clinical judgement - Caution: Fracture risk may be increased independent of BMD in patients with corticosteroid use, age greater than 65 years, or a history of prior fragility fracture. RECOMMENDATIONS: Follow-up in 2 years or as clinically indicated. Patients that are taking corticosteroids, are transplant recipients or have hyperparathyroidism should have annual follow-up. Follow-up scans should always be done on the same machine for accurate comparison. FOR MORE INFORMATION ABOUT DIAGNOSIS AND TREATMENT: [facility] for Osteoporosis and Metabolic Bone Disease:? [email or web address]/arthritis/os yahir National Osteoporosis Foundation:? www.nof.org International Society of Clinical Densitometry www.iscd.org Home Planning Consultant Salesperson: KARL Transcribe Date/Time: Jan 29 2024 4:04P Dictated by : WERNER HART MD This examination was interpreted and the report reviewed and electronically signed by: WERNER HART MD on Jan 29 2024 4:06PM [facility] DIVISION OF RADIOLOGY Radiology Study observation (narrative) [facility] Jared 01-16-2024 CNPN Telephone (INTMWS) -------- ELIDA PENALOZA ([id number]) 1955 F Date Time Provider Department 01/16/24 WANDA NOWAK INTMWS During your visit today, we recorded the following information about you: Lilly Chester RN 01/16/2024 8:52 AM Signed Patient calls and states that she would like to see a customer technical services manager regarding her foot fracture. Patient asking if provider can place this referral so that she can see customer technical services manager? Please review and advise, Lilly Chester RN Allergies As of Date: 01/16/2024 Noted Allergy Reaction COVID-19 (SARS-COV-2) VACCINE, VE*05/18/2021 4 - Hives Date Reviewed: 01/09/2024 Reviewed by: Wanda Nowak, DATABASE SOFTWARE TECHNICIAN.EMS DRIVER - Fully Assessed Reason for Visit: Referral Request [124] Primary Visit Diagnosis:Closed nondisplaced fracture of fifth metatarsal bone of left foot, initial encounter [S92.355A] Order(s):CONSULT TO PODIATRY [9034] Order #: [id number]: 1 FUTURE Prescriptions as of 01/17/2024 - letrozole (FEMARA) 2.5 mg tablet Take 1 tablet by mouth once daily. - MELATONIN ORAL Take 1 tablet by mouth at bedtime as needed. 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*08/08/2021 Breast cancer in female (HCC) [C50.919] 09/02/2021 Osteopenia after menopause [M85.80, Z78.0] 11/30/2021 Pure hypercholesterolemia [E78.00] 01/05/2023 Chronic pain of both shoulders [M25.511, G89.29*01/27/2023 Positive colorectal cancer screening using [place]*02/02/2023 04/25/2023 Coronary artery calcification seen on CAT scan *03/22/2023 PVC (premature ventricular contraction) [I49.3] 09/13/2023 Encounter Status:Closed by LILLY CHESTER on 01/17/24 [facility] CNOVon 01-09-2024 CNOV Office Visit (INTMWS ) -------- ELIDA PENALOZA ([id number]) 1955 F Date Time Provider Department 01/09/24 10:00 AM WANDA NOWAK INTMWS During your visit today, we recorded the following information about you: Pulse Respiration Blood pressure Weight 88/minute 20/minute 140/84 53.2 kg Height 1.575 m Wanda Nowak, DATABASE SOFTWARE TECHNICIAN.EMS DRIVER 01/09/2024 10:25 AM Signed Elida Penaloza is a 68 year old female here for a Medicare wellness visit. Medicare Health Risk Assessment General Health Very good Exercise: Minutes/Day 30 min Exercise: Days/Week 5 days Alcohol: Daily Use Monthly or less Alcohol: Drinks/Day 1 or 2 Alcohol: 6 or more drinks Never Feel off balance No Concerns: Teeth/Dentures No Concerns: Sexual function No Troubled by feelings None of the above Frequency: Eating healthy diet Nearly every day ADLs requiring help None of the above Safety precautions in home/vehicle Yes Smoke, vape, chews tobacco No Difficulty hearing No Difficulty seeing No Current Providers Specialists: I have reviewed specialist-related care of the patient in the medical record. Current care team: Patient Care Team: Ronn Wang MD as PCP - General (Internal Medicine) Salvador Carbone MD (Hematology/Oncology) Outside specialists seen: [place] [facility] Medical/Family history review Reviewed and updated problem list, medical/surgical/family/ social history, medications, and allergies. Opioid use review Opioid Medications (last 90 days) No data to display Anxiety/Depression screening PHQ-2 Score: 0 BERT-7 Score: 0 Recommendation: no further intervention at this time Cognitive screening Mini Cog Score: 3 Cognitive screening reviewed and No further action needed (score 3-5). Functional Observation Was the patient's Timed Up AND Go test unsteady or >= 12 seconds? No Advance Care Planning Patient was not able to provide a surrogate decision maker or written advance directives Measurements BP 140/84 Pulse 88 Resp 20 Ht 157.5 cm (5' 2) Wt 53.2 kg (117 lb 4.6 oz) LMP (LMP Unknown) SpO2 96% BMI 21.45 kg/m? Vision Screening: Follows with optometry/ophthalmology Assessment/Plan Medicare annual wellness visit, subsequent (Z00.00) - Counseled on healthy diet and regular exercise - Fall avoidance information provided - Personalized prevention plan provided Additional Concerns The following concerns were also discussed with the patient: White coat hypertension, BP historically in the 140's/80's in the office Home BP's: Yes 120's/70's on average Denies: headache, chest pain, palpitations, dyspnea, and peripheral edema. Last 3 Encounter BP Readings: Date: BP: 01/09/2024 140/84 12/18/2023 136/80 11/03/2023 163/88 Left foot injury x 6 weeks ago: left foot fell asleep while she was sitting, when she stood up it twisted under. Since then she has a painful swollen area on the edge of her foot. Aggravated by weight bearing. Alleviated with rest. Has not treated with any OTC analgesics, ice, or heat. Denies ankle pain or swelling. BP 140/84 Pulse 88 Resp 20 Ht 157.5 cm (5' 2) Wt 53.2 kg (117 lb 4.6 oz) LMP (LMP Unknown) SpO2 96% BMI 21.45 kg/m? Physical Exam Vitals reviewed. Constitutional: Appearance: Normal appearance. Cardiovascular: Rate and Rhythm: Normal rate and regular rhythm. Pulses: Dorsalis pedis pulses are 2+ on the right side and 2+ on the left side. Heart sounds: Normal heart sounds. No murmur heard. Pulmonary: Effort: Pulmonary effort is normal. Breath sounds: Normal breath sounds. No wheezing, rhonchi or rales. Musculoskeletal: Left ankle: No swelling or deformity. No tenderness. Normal range of motion. Left foot: Normal range of motion (painful). No deformity. Feet: Feet: Left foot: Skin integrity: Skin integrity normal. Skin: General: Skin is warm and dry. Neurological: Mental Status: She is alert. Psychiatric: Mood and Affect: Mood normal. ASSESSMENT/PLAN: 1. Medicare welcome exam - ICD9: V70.0, ICD10: Z00.00 (primary diagnosis) See medicare wellness plan 2. Foot injury, left, initial encounter - ICD9: 959.7, ICD10: S99.922A - XR FOOT GENERAL 3V AP/LAT/OBL LEFT 3. Left foot pain - ICD9: 729.5, ICD10: M79.672 - XR FOOT GENERAL 3V AP/LAT/OBL LEFT 4. Elevated blood pressure reading - ICD9: 796.2, ICD10: R03.0 Suspected Whitecoat elevation - Encouraged dietary sodium restriction/DASH diet - Recommended regular aerobic exercise. - Recommend home blood pressure monitoring, to bring results in on next visit - Goal of BP <130/80 5. Screening for depression - ICD9: V79.0, ICD10: Z13.31 - DEPRESSION SCREENING 6. Encounter for screening examination for other mental health and behavioral disorders - ICD9: V79.8, ICD10: Z13.39 - ANXIETY SCREENING 7. Coronary artery calcification seen on CAT scan - (more content not included)... Normal [facility] XR FOOT 3V AP/LAT/OBL LTon 1 03-10-2023 XR FOOT 3V AP/LAT/OBL LT * * *Final Report* * * DATE OF EXAM: Jan 09 2024 11:25AM [id number] [id number] - XR FOOT 3V AP/LAT/OBL LT / PROCEDURE REASON: multiple diagnoses * * * * Physician Interpretation * * * * EXAMINATION / TECHNIQUE: XR FOOT 3V AP/LAT/OBL LT HISTORY: PT STATES SHE FELL 2X IN SAME DAY 5 WEEKS AGO. HAVING LEFT LATERAL FOOT PAIN ATTENTION LEFT 5TH METATARSAL Foot injury, left, initial encounter Left foot pain COMPARISON: None. RESULT: Nondisplaced fracture at the fifth metatarsal base. Remaining bones are intact. Hallux valgus with bunion and mild first MTP joint osteoarthritis. Calcaneal enthesophytes are noted. IMPRESSION: Nondisplaced fifth metatarsal base fracture. Home Planning Consultant Salesperson: PSCB Transcribe Date/Time: Jan 13 2024 12:59P Dictated by : MT CELESTIN MD This examination was interpreted and the report reviewed and electronically signed by: MT CELESTIN MD on Jan 13 2024 1:00PM EST [id number] Normal [facility] CNOVon 12-18-2023 CNOV Office Visit (PULMWS ) -------- ELIDA PENALOZA ([id number]) 1955 F Date Time Provider Department 12/18/23 10:30 AM RONNIE URBAN PULMWS During your visit today, we recorded the following information about you: Pulse Respiration Blood pressure Weight 81/minute 14/minute 136/80 52.2 kg Ronnie Urban APRN.EMS DRIVER 12/18/2023 11:19 AM Signed Chief Complaint: 6 months follow-up from LDCT scan dated 06/12/2023 for LUNG RADS Category 3 finding of stable 21.2 mm KIRTI nodule, noted initially on 03/17/2023 LDCT. History of Present Illness: Elida Penaloza is a 68 year old female who is presenting today for pulmonary nodule follow-up. Nodule was found through lung cancer screening on LDCT. Patient has a PMH significant for Left breast cancer. Patient is a former smoker with a 45 pack year history. Quit smoking 7 months ago. Since the patient's last visit the patient has not had new medical issues or hospitalizations. No recent respiratory infections/pneumonia. The patient does not require assistance with normal activities of daily living. Modified Medical Research [place] Dyspnea Scale (MMRC) I only get breathless with strenous exercise 0 Patient denies SOB with their daily activity. No wheezing or dyspnea. Patient denies feeling of chest tightness/congestion in the chest. Patient does not have a new or concerning cough, and denies hemoptysis. Patient does not have a chronic daily cough. Denies regular or recent fevers/chills. Patient does not have any significant unintentional weight loss. Patient denies having any respiratory infections or COVID-19 in the past few months. Last 12 Encounter Wt Readings: Date: Wt: 12/18/2023 52.2 kg (115 lb) 11/03/2023 52.9 kg (116 lb 10 oz) 09/13/2023 53.9 kg (118 lb 13.3 oz) 06/12/2023 54.6 kg (120 lb 4.8 oz) 04/25/2023 54 kg (119 lb) 03/17/2023 54 kg (119 lb) 03/03/2023 54.1 kg (119 lb 3.2 oz) 01/24/2023 53.5 kg (118 lb) 01/04/2023 52.6 kg (116 lb) 11/29/2022 54 kg (119 lb) 09/14/2022 52.4 kg (115 lb 8 oz) 06/23/2022 50.7 kg (111 lb 12.8 oz) Past Medical History: PAST MEDICAL HISTORY Diagnosis Date Anemia 01/12/2021 Breast cancer (HCC) 09/24/2020 left breast and lymph noder Cellulitis 03/24/2021 Coronary artery calcification seen on CAT scan 03/22/2023 Helicobacter pylori gastritis 04/15/2023 Nicotine use disorder, F17.2 03/25/2021 Osteopenia Positive colorectal cancer screening using Cologuard test 02/02/2023 Pure hypercholesterolemia 01/05/2023 Surgical Hx: PAST SURGICAL HISTORY Procedure Laterality Date BREAST BIOPSY HX Left 09/24/2020 COLONOSCOPY WITH BIOPSY (80340) 04/11/2023 EGD DIAGNOSTIC 04/11/2023 INSJ TUNNELED CTR VAD W/SUBQ PORT AGE 5 YR/> 01/18/2021 and removal of old port a cath LIGATE FALLOPIAN TUBE 1989 MASTECTOMY HX MASTECTOMY, SIMPLE, COMPLETE Left 08/2021 PAST SURGICAL HISTORY OF 1985 Bunions removed from both feet PORTOCATH PLACEMENT 11/04/2020 malfunctioned Family Hx: FAMILY HISTORY Problem Relation Age of Onset Breast Cancer Mother Melanoma Father No Known Problems Sister Melanoma Brother Seizures Brother other (AV malformation brain) Brother Allergies: ALLERGIES Allergen Reactions Covid-19 (Sars-Cov-* Hives Social History Tobacco Use: 1 packs/day, for 45 years. Quit 05/14/2023. Types: Cigarettes Review Of Systems: See HPI for ROS All of the remainder systems were reviewed and negative. PHYSICAL EXAMINATION: BP 136/80 Pulse 81 Resp 14 Wt 115 lb (52.2kg) SpO2 97% General appearance: well appearing, in no acute distress, and alert Skin: skin color, texture, turgor normal, no rashes or lesions Neck: Supple, no adenopathy; thyroid symmetric, normal size Respiratory: lungs clear to auscultation no wheezing or rhonchi Cardiovascular: Negative. RRR without murmur, gallop, or rubs. No ectopy Musculoskeletal: Extremities normal. No deformities, edema, or skin discoloration. Left lateral foot bony prominence tender to touch. Neuro: Oriented X 3 Data Review I have visually reviewed imaging and testing below CT imaging done today was reviewed and analyzed independently by practitioner and awaiting radiology review. CT was compared to prior CT chest. KIRTI opacity stable Prior PFTS: No textual results found for the specified procedure(s). Assessment and Plan: 1. Pulmonary Nodule: KIRTI subpleural opacity is stable (unchanged), and no new nodules of concern were seen on the exam. Recommended follow-up in one year. This recommendation is subject to change, pending final radiology report. The patient was counseled on the importance of adherence to annual LDCT lung cancer screening, impact of comorbidities and ability or willingness to undergo diagnosis and treatment. 2. Nicotine Dependence, Former: Continue to abstain from smoking cigarettes. Ronnie Urban APRN.EMS DRIVER Phone: (more content not included)... Normal [facility] CT LUNG FOLLOWUP WO IVCONon 12-18-2023 CT LUNG FOLLOWUP WO IVCON * * *Final Report* * * DATE OF EXAM: Dec 18 2023 10:06AM [facility] 0561 - CT LUNG FOLLOWUP WO IVCON / PROCEDURE REASON: Lung nodules * * * * Physician Interpretation * * * * EXAMINATION: CT LUNG FOLLOWUP WO IVCON CLINICAL HISTORY: Lung nodule follow-up. History of LEFT breast cancer status post mastectomy, chemotherapy and radiation therapy, completed on 12/11 Technique: Spiral CT acquisition of the chest from the thoracic inlet to the upper abdomen without contrast. MQ: [id number]_6 Followup LDCT Patient characteristics: * Igll-ab-Mwsgf: 1955; Age at exam: 68 years * Gender: Female * Lung Disease: Asymptomatic (no signs or symptoms of lung disease) * Number of Pack Years: 45 * Current smoker (=0) or Number of Years since Quit: 0 * Ordering provider and NPI: RONNIE URBAN [id number] * Interpreting radiologist and NPI: Cuate [id number] Exam acquisition parameters: * Exam Date: 12/18/2023 10:06 AM * Site: [facility] * * CT System Plant Director: Siemens * CT System Model: Sensation * Tube Current-Time (mA-sec): 18 * Peak Voltage (kV): 120V * Scan Time (sec): 11.5 * Scan Volume (z-length, cm): -30.70 * Pitch: 0.75 * Slice Thickness (mm): 1.5 * CT Dose-Length Product: 68 mGy*cm * CT Dose Index: 1.38mGy * CT Dose Reduction Method: Automated exposure control(AEC) and iterative recon COMPARISON: 06/12/2023 RESULT: Are nodules present? Yes, 1-5 nodules Essentially stable size and morphology of a 2 x 1.5 cm subpleural consolidative opacity with associated air bronchogram in the region of interstitial fibrosis in the LEFT upper lobe (image 93). Findings most likely represent a focal region of post radiation fibrosis. No new or enlarging pulmonary nodules. Other findings: Mild paraseptal trivial centrilobular emphysema in the upper lobes with diffuse bronchial wall thickening. Biapical pleural-parenchymal scarring, LEFT worse than RIGHT. Coarse subpleural reticulation with associated architectural distortion, traction bronchiectasis and traction bronchiolectasis in the LEFT upper lobe and lingula. Stable subcentimeter sized thoracic lymph nodes. Borderline ectasia of the aortic root and ascending thoracic aorta with moderate aortic atherosclerosis. Postoperative changes of LEFT mastectomy and LEFT axillary lymph node dissection are noted with no local recurrence. Degenerative changes in the LEFT shoulder joint and thoracic spine. Osteopenia. Emphysema: Mild, paraseptal, upper lobe Coronary Artery Calcifications: Circumflex moderate; Left Anterior Descending moderate; Right Coronary severe Incidental coronary calcium as automatically processed and calculated using AI: Total Coronary Calcium Score = [100+] Agatston Units Percentile Rank (age and gender matched relative to reference population): [75th-100th] percentile* [* [email or web address]] Localizer images: No significant findings. IMPRESSION: LungRADS category: 2 S LungRADS modifier: Significant other (S), coronary artery calcification, moderate or severe LungRADS 0 reason: n/a Recommendations: Continue annual screening with LDCT in 12 months. Other actionable findings: === Reference: [employer]. Lung CT Screening Reporting and Data System (Lung-RADS). Available at: http://www.acr.org/Quali ty-Safety/Resources/Lung RADS Home Planning Consultant Salesperson: KARL Transcribe Date/Time: Dec 19 2023 9:39A Dictated by : MERYL STUBBS MD This examination was interpreted and the report reviewed and electronically signed by: MERYL STUBBS MD on Dec 19 2023 10:03AM EST [id number] Normal [facility] Basic metabolic 2000 panelon 11-03-2023 Anion gap [Moles/Vol] 11 mmol/L Normal 8-15 [facility] Comment on above: Order Comment: Speci men Type: BLOOD SPECIMENOrdering Facility: [facility] Address: [address] [place] [address] Performed By: #### 2 4321-2 ####[facility] ANTWON MILLTOWNCLIA [id number] [place] [address] [place] Calcium [Mass/Vol] 10.0 mg/dL Normal 8.5-10.2 [facility] Comment on above: Order Comment: Speci men Type: BLOOD SPECIMENOrdering Facility: [facility] Address: [address] [place] [address] Performed By: #### 2 4321-2 ####[facility] MILLTOWNCLIA [id number] [place] [address] [place] Chloride [Moles/Vol] 101 mmol/L Normal 98-107 [facility] Comment on above: Order Comment: Speci men Type: BLOOD SPECIMENOrdering Facility: [facility] Address: [address] [place] [address] Performed By: #### 2 4321-2 ####[facility] MILLTOWNCLIA [id number] [place] [address] [place] CO2 [Moles/Vol] 26 mmol/L Normal 22-30 [facility] Comment on above: Order Comment: Speci men Type: BLOOD SPECIMENOrdering Facility: [facility] Address: [address] [place] [address] Performed By: #### 2 4321-2 ####[facility] ANTWON MILLTOWNCLIA [id number] [place] [address] [place] Creatinine [Mass/Vol] 0.61 mg/dL Normal 0.58-0.96 [facility] Comment on above: Order Comment: Speci men Type: BLOOD SPECIMENOrdering Facility: [facility] Address: [address] [place] [address] Performed By: #### 2 4321-2 ####[facility] MILLTOWNCLIA [id number] [place] [address] [place] Creatinine and Glomerular filtration rate.predicted panel (S/P/Bld) 99 mL/min/1.73m??? Normal >=60 [facility] Comment on above: Order Comment: Jorge Alberto huff Type: BLOOD SPECIMENOrdering Facility: [facility] Address: [address] [place] [address] Result Comment: Xuan mated Glomerular Filtration Rate (eGFR) is calculated using the 2020 CKD-EPI creatinine equation. This equation utilizes serum creatinine, sex, and age as parameters. The creatinine assay has traceable calibration to isotope dilution-mass spectrometry. Refer to KDIGO guidelines for clinical interpretation. In patients with unstable renal function, e.g. those with acute kidney injury, the eGFR may not accurately reflect actual GFR. Performed By: #### 2 4321-2 ####[facility] [id number] [place] [address] [place] Glucose [Mass/Vol] 118 mg/dL High 74-99 [facility] Comment on above: Order Comment: Jorge Alberto huff Type: BLOOD SPECIMENOrdering Facility: [facility] Address: [address] [place] [address] Result Comment: The [place] [employer] (ADA) provides guidance for cutoff values for fasting glucose and random glucose. The ADA defines fasting as no caloric intake for at least 8 hours. Fasting plasma glucose results between 100 to 125 mg/dL indicate increased risk for diabetes (prediabetes). Fasting plasma glucose results greater than or equal to 126 mg/dL meet the criteria for diagnosis of diabetes. In the absence of unequivocal hyperglycemia, results should be confirmed by repeat testing. In a patient with classic symptoms of hyperglycemia or hyperglycemic crisis, random plasma glucose results greater than or equal to 200 mg/dL meet the criteria for diagnosis of diabetes. Reference: Standards of Medical Care in Diabetes 2016, [place] [employer]. Diabetes Care. 2016.39(Suppl 1). Performed By: #### 2 4321-2 ####[facility] [id number] [place] [address] [place] Potassium [Moles/Vol] 4.1 mmol/L Normal 3.7-5.1 [facility] Comment on above: Order Comment: Speci men Type: BLOOD SPECIMENOrdering Facility: [facility] Address: [address] [place] [address] Performed By: #### 2 4321-2 ####[facility] [id number] [place] [address] [place] Sodium [Moles/Vol] 138 mmol/L Normal 136-144 [facility] Comment on above: Order Comment: Speci men Type: BLOOD SPECIMENOrdering Facility: [facility] Address: [address] [place] [address] Performed By: #### 2 4321-2 ####[facility] [id number] [place] [address] [place] Urea nitrogen [Mass/Vol] 18 mg/dL Normal 7-21 [facility] Comment on above: Order Comment: Speci men Type: BLOOD SPECIMENOrdering Facility: [facility] Address: [address] [place] [address] Performed By: #### 2 4321-2 ####[facility] [id number] [place] [address] [place] CNOVSPon 11-03-2023 OVS Visit (SP) Office (HEMAWS) -------- ELIDA PENALOZA ([id number]) 1955 F Date Time Provider Department 11/03/23 11:00 AM TREATMENT 16 [facility] WSTRHEMAWS During your visit today, we recorded the following information about you: Temperature Pulse Respiration Blood pressure 97.4 degrees 76/minute 16/minute 163/88 Weight 52.9 kg Marion Tipton RN 11/03/2023 12:11 PM Signed Pt. Verbally denies any pain and dental issues. Referring Provider: ABIOLA RIVERA [[id number]] Allergies As of Date: 11/03/2023 Noted Allergy Reaction COVID-19 (SARS-COV-2) VACCINE, VE*05/18/2021 4 - Hives Date Reviewed: 11/03/2023 Reviewed by: Marion Tipton RN - Fully Assessed Reason for Visit: Non-Chemotherapy Treatment [795] Primary Visit Diagnosis:Breast cancer metastasized to axillary lymph node, left (HCC) [C50.912, C77.3] Order(s):PHARMACY COMMUNICATION PATIENT ARRIVEDDisp: Rfl: [] zoledronic id-wdtwtwka-5.9NaCl 4 mg iv piggyback 100 mL (ZOMETA)Disp: Rfl: BCN NURSING COMMUNICATION [[id number]] Order #: [id number]: 1 STANDING Prescriptions as of 11/03/2023 - letrozole (FEMARA) 2.5 mg tablet Take 1 tablet by mouth once daily. - MELATONIN ORAL Take 1 tablet by mouth at bedtime as needed. Facility-Administered Medications as of 11/03/2023 - PHARMACY COMMUNICATION PATIENT ARRIVED Problem List As Of Date 11/03/2023 Noted Resolved Malignant neoplasm of upper-outer quadrant of l*10/28/2020 Secondary malignant neoplasm of axillary lymph *10/28/2020 Anemia [D64.9] 01/12/2021 03/22/2023 Cellulitis [L03.90] 03/24/2021 03/22/2023 Nicotine use disorder, F17.2 [F17.200] 03/25/2021 Vitamin D deficiency [E55.9] 07/14/2021 Breast cancer metastasized to axillary lymph no*08/08/2021 Breast cancer in female (HCC) [C50.919] 09/02/2021 Osteopenia after menopause [M85.80, Z78.0] 11/30/2021 Pure hypercholesterolemia [E78.00] 01/05/2023 Chronic pain of both shoulders [M25.511, G89.29*01/27/2023 Positive colorectal cancer screening using [place]*02/02/2023 04/25/2023 Coronary artery calcification seen on CAT scan *03/22/2023 PVC (premature ventricular contraction) [I49.3] 09/13/2023 Encounter Status:Closed by MARION TIPTON on 11/03/23 Normal [facility] MG Breast Screeningon 2023 IMPRESSION: BENIGN FINDING There is no mammographic evidence of malignancy. A 1 year screening mammogram is recommended. Dania Hernandez M.D., cp/jim:07/18/2023 10:13:15 School Librarian(s): [facility] letter sent: Normal over 40 Mammogram BI-RADS: 2 Benign finding Multiple national specialty organizations have released breast cancer screening guidelines for women at average risk for developing breast cancer - guidelines that are based on both evidence and opinion, yet differ on when to start and how often to screen for breast cancer. With representation from Breast Imaging, Internal Medicine, Women's Health, Family Medicine, and Medical/Surgical Oncology, the [facility] has carefully reviewed the data and reached the following consensus: 1) All women should engage in shared decision-making with their providers to decide when to start and how often to screen; 2) All women should have the opportunity to start screening mammography at age 40; 3) For women ages 45-55, we recommend annual screening mammograms; 4) For women ages 55 and over, we support both the transition from an annual to a biennial interval if this aligns more with patient's values and preferences, or continuation with annual screening; 5) All women should discuss with their providers when to stop screening mammograms. Home Planning Consultant Salesperson: Jim Transcribe Date/Time: Jul 18 2023 10:09A Dictated by: DANIA HERNANDEZ MD This examination was interpreted and the report reviewed and electronically signed by: DANIA HERNANDEZ MD on Jul 18 2023 10:13AM [facility] DIVISION OF RADIOLOGY * * *Final Report* * * DATE OF EXAM: Jul 18 2023 9:16AM [facility] 0581 - CANELO SCREENING / PROCEDURE REASON: multiple diagnoses * * * * Physician Interpretation * * * * RESULT: #[id number] - CANELO SCREENING UNILATERAL RIGHT DIGITAL SCREENING MAMMOGRAM WITH CAD: 07/18/2023 HISTORY: Multiple Diagnoses / Screening Mammogram-Patient reports NO symptoms. /priors available for comparison. RESULT: TECHNIQUE: The study was acquired using full field digital technology and interpreted from soft copy. Current study was also evaluated with a Computer Aided Detection (CAD). Comparison is made to exams dated: 07/11/2022 mammogram - [facility], 10/20/2021 mammogram - [facility], 07/05/2021 mammogram - [facility] [place], and 06/09/2021 mammogram - [facility]. There are scattered areas of fibroglandular density in the right breast. There are benign post operative findings in the right breast. No significant masses, calcifications, or other findings are seen in the breast. There has been no significant interval change. DIVISION OF RADIOLOGY Provider, [facility] - 07/18/2023 * * *Final Report* * * DATE OF EXAM: Jul 18 2023 9:16AM [facility] 0581 [facility] SCREENING / PROCEDURE REASON: multiple diagnoses * * * * Physician Interpretation * * * * RESULT: #[id number] - CANELO SCREENING UNILATERAL RIGHT DIGITAL SCREENING MAMMOGRAM WITH CAD: 07/18/2023 HISTORY: Multiple Diagnoses / Screening Mammogram-Patient reports NO symptoms. /priors available for comparison. RESULT: TECHNIQUE: The study was acquired using full field digital technology and interpreted from soft copy. Current study was also evaluated with a Computer Aided Detection (CAD). Comparison is made to exams dated: 07/11/2022 mammogram - [facility], 10/20/2021 mammogram - [facility], 07/05/2021 mammogram - [facility] [place], and 06/09/2021 mammogram - [facility]. There are scattered areas of fibroglandular density in the right breast. There are benign post operative findings in the right breast. No significant masses, calcifications, or other findings are seen in the breast. There has been no significant interval change. IMPRESSION IMPRESSION: BENIGN FINDING There is no mammographic evidence of malignancy. A 1 year screening mammogram is recommended. Dania Hernandez M.D. cp/penkiah:07/18/2023 10:13:15 School Librarian(s): Morelia Ascencio [facility] [place] letter sent: Normal over 40 Mammogram BI-RADS: 2 Benign finding Multiple national specialty organizations have released breast cancer screening guidelines for women at average risk for developing breast cancer - guidelines that are based on both evidence and opinion, yet differ on when to start and how often to screen for breast cancer. With representation from Breast Imaging, Internal Medicine, Women's Health, Family Medicine, and Medical/Surgical Oncology, the [facility] has carefully reviewed the data and reached the following consensus: 1) All women should engage in shared decision-making with their providers to decide when to start and how often to screen; 2) All women should have the opportunity to start screening mammography at age 40; 3) For women ages 45-55, we recommend annual screening mammograms; 4) For women ages 55 and over, we support both the transition from an annual to a biennial interval if this aligns more with patient's values and preferences, or continuation with annual screening; 5) All women should discuss with their providers when to stop screening mammograms. Home Planning Consultant Salesperson: Jim Transcribe Date/Time: Jul 18 2023 10:09A Dictated by: DANIA HERNANDEZ MD This examination was interpreted and the report reviewed and electronically signed by: DANIA HERNANDEZ MD on Jul 18 2023 10:13AM EST [facility] Radiology Study observation (narrative) [facility] MG Breast ScreeningOrdered B y: [facility] Provider on 07-18-2023 [facility] EGD Study observation Narrat iveon 04-11-2023 [facility] Flexible sigmoidoscopy study on 04-11-2023 [facility] CREATININE, ISTATon 11-30-19 23 Creatinine [Mass/Vol] 0.60 mg/dL 0.60 - 1.30 mg/dL [facility] GFR/1.73 sq M.predicted among non-blacks MDRD (S/P/Bld) [Vol rate/Area] 100 mL/min/1.73m >=60 mL/min/1.73m [facility] US BREAST LTD LEFTon 023 [facility] CANELO SCREENINGon 07-11-2022 [facility] Urinalysis complete panel (U )on 07-04-2022 Bacteria LM.HPF (Urine sed) [#/Area] Few Abnormal None Seen /HPF [facility] Bilirubin Ql (U) Negative Negative [facility] Clarity (Unsp spec) Turbid Abnormal Clear [facility] Color (U) [place] Abnormal Yellow [facility] Glucose Test strip (U) [Mass/Vol] Negative Trace, Negative [facility] Hemoglobin Ql (U) 3+ Abnormal Negative, Trace [facility] Ketones Ql (U) Negative Trace, Negative [facility] Leukocyte esterase Test strip Ql (U) 500 Dante/uL Abnormal Negative, 25 Dante/uL [facility] Nitrite Ql (U) 1+ Abnormal Negative [facility] pH (U) 6.5 [pH] 5.0 - 8.0 [facility] Protein (U) [Mass/Vol] 3+ Abnormal Trace , Negative [facility] RBC LM.HPF (Urine sed) [#/Area] /[HPF] Abnormal 0-3 /HPF [facility] Specific gravity (U) [Rel density] 1.016 1.005 - 1.030 [facility] Urobilinogen Ql (U) Negative Negative [facility] WBC LM.HPF (Urine sed) [#/Area] /[HPF] Abnormal 0-5 /HPF [facility] XR ELBOW SPECIAL VIEWS AP/LA T/[facility] Elbow - left AP and Later al and obliqueon 06-23-2022 IMPRESSION: No acute bone abnormality. Home Planning Consultant Salesperson: KARL Transcribe Date/Time: Jun 23 2022 6:29P Dictated by : MICHELLE CHESTER MD This examination was interpreted and the report reviewed and electronically signed by: MICHELLE CHESTER MD on Jun 23 2022 6:30PM [facility] DIVISION OF RADIOLOGY * * *Final Report* * * DATE OF EXAM: Jun 23 2022 6:19PM WOX 5324 - XR ELBOW 3V AP/LAT/OTHER LT / PROCEDURE REASON: Elbow injury, initial encounter * * * * Physician Interpretation * * * * XR ELBOW 3V AP/LAT/OTHER LT HISTORY: Elbow injury, initial encounter COMPARISON: None. FINDINGS: No evidence of fracture, dislocation, or destructive process. Joint spaces are preserved. _ _ DIVISION OF RADIOLOGY Provider, [facility] - 06/23/2022 * * *Final Report* * * DATE OF EXAM: Jun 23 2022 6:19PM WOX 5324 - XR ELBOW 3V AP/LAT/OTHER LT / PROCEDURE REASON: Elbow injury, initial encounter * * * * Physician Interpretation * * * * XR ELBOW 3V AP/LAT/OTHER LT HISTORY: Elbow injury, initial encounter COMPARISON: None. FINDINGS: No evidence of fracture, dislocation, or destructive process. Joint spaces are preserved. _ _ IMPRESSION IMPRESSION: No acute bone abnormality. Home Planning Consultant Salesperson: PSCB Transcribe Date/Time: Jun 23 2022 6:29P Dictated by : MICHELLE CHESTER MD This examination was interpreted and the report reviewed and electronically signed by: MICHELLE CHESTER MD on Jun 23 2022 6:30PM EST [facility] Radiology Study observation (narrative) [facility] XR Elbow - left AP and Later al and obliqueOrdered By: [facility] Provider on 06-23-2022 [facility] DXA-AXIAL SKELETONon 022 [facility] DBT Breast - right diagnosti c for implanton 10-20-2021 IMPRESSION: BENIGN FINDING There is no mammographic evidence of malignancy. A 1 year screening mammogram is recommended. SUMMARY: Findings and recommendations were discussed with the patient at the time of examination. Dania Hernandez M.D. cp/penkiah:10/20/2021 10:19:36 School Librarian(s): RT Xiao Mishra, [facility] Mammogram BI-RADS: 2 Benign finding Multiple national specialty organizations have released breast cancer screening guidelines for women at average risk for developing breast cancer - guidelines that are based on both evidence and opinion, yet differ on when to start and how often to screen for breast cancer. With representation from Breast Imaging, Internal Medicine, Women's Health, Family Medicine, and Medical/Surgical Oncology, the [facility] has carefully reviewed the data and reached the following consensus: 1) All women should engage in shared decision-making with their providers to decide when to start and how often to screen; 2) All women should have the opportunity to start screening mammography at age 40; 3) For women ages 45-55, we recommend annual screening mammograms; 4) For women ages 55 and over, we support both the transition from an annual to a biennial interval if this aligns more with patient's values and preferences, or continuation with annual screening; 5) All women should discuss with their providers when to stop screening mammograms. Home Planning Consultant Salesperson: Jim Transcribe Date/Time: Oct 20 2021 9:43A Dictated by: DANIA HERNANDEZ MD This examination was interpreted and the report reviewed and electronically signed by: DANIA HERNANDEZ MD on Oct 20 2021 10:19AM [facility] DIVISION OF RADIOLOGY * * *Final Report* * * DATE OF EXAM: Oct 20 2021 10:17AM [facility] 0629 - CANELO DIAG W LEE ANN RT / PROCEDURE REASON: multiple diagnoses * * * * Physician Interpretation * * * * RESULT: #[id number] - CANELO DIAG W LEE ANN RT UNILATERAL RIGHT DIGITAL DIAGNOSTIC MAMMOGRAM TOMOSYNTHESIS WITH CAD: 10/20/2021 HISTORY: Patient with history of left breast cancer s/p mastectomy, presenting for first imaging evaluation after treatment. Patient reports NO breast symptoms. RESULT: TECHNIQUE: The study was acquired using full field digital technology and interpreted from soft copy. Digital Breast Tomosynthesis (DBT) images were obtained and used to assist in the interpretation of this examination. Current study was also evaluated with a Computer Aided Detection (CAD). Comparison is made to exams dated: 07/05/2021 ultrasound biopsy, 07/05/2021 mammogram, and 07/05/2021 breast MRI - [facility]. There are scattered fibroglandular elements in right breast. There are benign post operative findings in the right breast. No significant masses, calcifications, or other findings are seen in the breast. There has been no significant interval change. DIVISION OF RADIOLOGY Provider, [facility] - 10/20/2021 * * *Final Report* * * DATE OF EXAM: Oct 20 2021 10:17AM [facility] 0629 - CAENLO DIAG W LEE ANN RT / PROCEDURE REASON: multiple diagnoses * * * * Physician Interpretation * * * * RESULT: #[id number] - CANELO DIAG W LEE ANN RT UNILATERAL RIGHT DIGITAL DIAGNOSTIC MAMMOGRAM TOMOSYNTHESIS WITH CAD: 10/20/2021 HISTORY: Patient with history of left breast cancer s/p mastectomy, presenting for first imaging evaluation after treatment. Patient reports NO breast symptoms. RESULT: TECHNIQUE: The study was acquired using full field digital technology and interpreted from soft copy. Digital Breast Tomosynthesis (DBT) images were obtained and used to assist in the interpretation of this examination. Current study was also evaluated with a Computer Aided Detection (CAD). Comparison is made to exams dated: 07/05/2021 ultrasound biopsy, 07/05/2021 mammogram, and 07/05/2021 breast MRI - [facility]. There are scattered fibroglandular elements in right breast. There are benign post operative findings in the right breast. No significant masses, calcifications, or other findings are seen in the breast. There has been no significant interval change. IMPRESSION IMPRESSION: BENIGN FINDING There is no mammographic evidence of malignancy. A 1 year screening mammogram is recommended. SUMMARY: Findings and recommendations were discussed with the patient at the time of examination. Dania Hernandez M.D., cp/jim:10/20/2021 10:19:36 School Librarian(s): RT Xiao Mishra, [facility] Mammogram BI-RADS: 2 Benign finding Multiple national specialty organizations have released breast cancer screening guidelines for women at average risk for developing breast cancer - guidelines that are based on both evidence and opinion, yet differ on when to start and how often to screen for breast cancer. With representation from Breast Imaging, Internal Medicine, Women's Health, Family Medicine, and Medical/Surgical Oncology, the [facility] has carefully reviewed the data and reached the following consensus: 1) All women should engage in shared decision-making with their providers to decide when to start and how often to screen; 2) All women should have the opportunity to start screening mammography at age 40; 3) For women ages 45-55, we recommend annual screening mammograms; 4) For women ages 55 and over, we support both the transition from an annual to a biennial interval if this aligns more with patient's values and preferences, or continuation with annual screening; 5) All women should discuss with their providers when to stop screening mammograms. Home Planning Consultant Salesperson: Jim Transcribe Date/Time: Oct 20 2021 9:43A Dictated by: DANIA HERNANDEZ MD This examination was interpreted and the report reviewed and electronically signed by: DANIA HERNANDEZ MD on Oct 20 2021 10:19AM EST [facility] Radiology Study observation (narrative) [facility] DBT Breast - right diagnosti c for implantOrdered By: [facility] Provider on 10-20-2021 [facility] Jared 09-15-2021 JOSE A Telephone (GENSF) -------- ELIDA PENALOZA ([id number]) 1955 F Date Time Provider Department 09/15/21 CLARISA SANDOVAL During your visit today, we recorded the following information about you: Clarisa Sandoval RN 09/15/2021 11:11 AM Signed Nurse navigator called patient to check-in on post-op recovery. Patient reports she is doing very well. No pain, drains removed. Confirmed appointment next week for 09/22 with Kelsie Mendoza. Denied any social work needs at this time, received assistance from her sister. Provided social work contact for patient should situation change. Clarisa Sandoval RN Allergies As of Date: 09/15/2021 Noted Allergy Reaction COVID-19 (SARS-COV-2) VACCINE, VE*05/18/2021 4 - Hives Date Reviewed: 09/13/2021 Reviewed by: Merari Vera LPN - Fully Assessed Reason for Visit: Patient Update [1234] Cmt: navigation Prescriptions as of 09/15/2021 - abemaciclib (VERZENIO) 150 mg tablet Take 1 tablet (150 mg) by mouth twice daily. - letrozole (FEMARA) 2.5 mg tablet Take 1 tablet by mouth once daily. - cefADROxil (DURICEF) 500 mg capsule Take 1 capsule by mouth twice daily for 14 days. - ergocalciferol 50,000 unit capsule (VITAMIN D2, DRISDOL) Take 1 capsule by mouth one time a week. - MELATONIN ORAL Take 1 tablet by mouth at bedtime as needed. Facility-Administered Medications as of 09/15/2021 - perflutren lipid microspheres 1.3 mL in NaCl (PF) 0.9% 10 mL injection (DEFINITY) - sodium chloride 0.9 % (flush) 10 mL (BD POSIFLUSH) Problem List As Of Date 09/15/2021 Noted Resolved Malignant neoplasm of upper-outer quadrant of l*10/28/2020 Secondary malignant neoplasm of axillary lymph *10/28/2020 Anemia [D64.9] 01/12/2021 Cellulitis [L03.90] 03/24/2021 Nicotine use disorder, F17.2 [F17.200] 03/25/2021 Vitamin D deficiency [E55.9] 07/14/2021 Breast cancer metastasized to axillary lymph no*08/08/2021 Smoking [F17.200] 08/08/2021 Breast cancer in female (HCC) [C50.919] 09/02/2021 Encounter Status:Closed by CLARISA SANDOVAL on 09/15/21 [facility] [place] 09-03-2021 CNPN Telephone (GENSF) -------- ELIDA PENALOZA ([id number]) 1955 F Date Time Provider Department 09/03/21 CLARISA SANDOVAL During your visit today, we recorded the following information about you: Clarisa Sandoval RN 09/03/2021 9:55 AM Signed Post op call placed to patient. Breast nurse navigator was unable to see patient in the hospital, as she was discharged the same day as surgery. Unable to leave message as mailbox is full. Will send staff message to patient. Clarisa Sandoval RN Allergies As of Date: 09/03/2021 Noted Allergy Reaction COVID-19 (SARS-COV-2) VACCINE, VE*05/18/2021 4 - Hives Date Reviewed: 09/02/2021 Reviewed by: Frances Ford RN - Fully Assessed Reason for Visit: Post Op Follow Up [3947] Prescriptions as of 09/03/2021 - oxyCODONE IR (ROXICODONE) 5 mg immediate release tablet Take 1 tablet by mouth every 6 hours as needed for pain. - cefADROxil (DURICEF) 500 mg capsule Take 1 capsule by mouth twice daily for 14 days. - anastrozole (ARIMIDEX) 1 mg tablet Take 1 tablet by mouth once daily. - ergocalciferol 50,000 unit capsule (VITAMIN D2, DRISDOL) Take 1 capsule by mouth one time a week. - anastrozole (ARIMIDEX) 1 mg tablet Take 1 tablet by mouth once daily. - MELATONIN ORAL Take 1 tablet by mouth at bedtime as needed. Facility-Administered Medications as of 09/03/2021 - perflutren lipid microspheres 1.3 mL in NaCl (PF) 0.9% 10 mL injection (DEFINITY) - sodium chloride 0.9 % (flush) 10 mL (BD POSIFLUSH) Problem List As Of Date 09/03/2021 Noted Resolved Malignant neoplasm of upper-outer quadrant of l*10/28/2020 Secondary malignant neoplasm of axillary lymph *10/28/2020 Anemia [D64.9] 01/12/2021 Cellulitis [L03.90] 03/24/2021 Nicotine use disorder, F17.2 [F17.200] 03/25/2021 Vitamin D deficiency [E55.9] 07/14/2021 Breast cancer metastasized to axillary lymph no*08/08/2021 Smoking [F17.200] 08/08/2021 Breast cancer in female (HCC) [C50.919] 09/02/2021 Encounter Status:Closed by CLARISA SANDOVAL on 09/03/21 [facility] CNPN Telephone (GENSF) -------- ELIDA PENALOZA ([id number]) 1955 F Date Time Provider Department 09/03/21 CLARISA SANDOVAL During your visit today, we recorded the following information about you: Clarisa Sandoval RN 09/03/2021 12:02 PM Signed Patient returned call. BREAST HEALTH NURSE POST-OP PHONE CONTACT: Elida Penaloza was contact via telephone as follow-up from recent breast surgery. I spoke with self/patient to evaluate progress since surgery. Patient has limited supports, one friend that can stop by after work. Some family in town. TOPICS ADDRESSED: PAIN ASSESSMENT: Yes LOCATION: surgical site PAIN SCALE: 1 on a scale of 0-10 MEDICATIONS: patient has oxycodone, has not needed to take. Explained protocol for how and when to take pain medications for optimal relief. EMOTIONAL ASSESSMENT: appropriate. ADJUSTMENT TO DIAGNOSIS AND TREATMENT: responding appropriately. DRAIN CARE: Yes, color sero-sanguinous and Re-educated patient on proper drain care. Patient has 2 drains. Re-educated patient on drain care, tubing, signs of infection, recording drainage on output record. INCISION SITE: Viewed by patient - No. PAtient has jenae wrap. Will remove this evening and wear a front closure sports bra that her friend will get her at [facility]. NUTRITION: food intake: adequate. fluid intake: adequate. ACTIVITY AND EXERCISE: Began exercises 1-4. Patient was unaware of any activity restrictions or exercises. Educated patient in detail on instructions. Teach Back method of education performed. The self/patient verbalized understanding. FOLLOW UP: Confirmed patient has contact information for off hours/weekend needs. Encouraged patient to call with questions or needs. Patient confirmed she will follow-up with Destiny. Patient received some financial assistance from her sister. Clarisa Sandoval RN Allergies As of Date: 09/03/2021 Noted Allergy Reaction COVID-19 (SARS-COV-2) VACCINE, VE*05/18/2021 4 - Hives Date Reviewed: 09/02/2021 Reviewed by: Frances Ford RN - Fully Assessed Reason for Visit: Patient Update [1234] Prescriptions as of 09/03/2021 - oxyCODONE IR (ROXICODONE) 5 mg immediate release tablet Take 1 tablet by mouth every 6 hours as needed for pain. - cefADROxil (DURICEF) 500 mg capsule Take 1 capsule by mouth twice daily for 14 days. - anastrozole (ARIMIDEX) 1 mg tablet Take 1 tablet by mouth once daily. - ergocalciferol 50,000 unit capsule (VITAMIN D2, DRISDOL) Take 1 capsule by mouth one time a week. - anastrozole (ARIMIDEX) 1 mg tablet Take 1 tablet by mouth once daily. - MELATONIN ORAL Take 1 tablet by mouth at bedtime as needed. Facility-Administered Medications as of 09/03/2021 - perflutren lipid microspheres 1.3 mL in NaCl (PF) 0.9% 10 mL injection (DEFINITY) - sodium chloride 0.9 % (flush) 10 mL (BD POSIFLUSH) Problem List As Of Date 09/03/2021 Noted Resolved Malignant neoplasm of upper-outer quadrant of l*10/28/2020 Secondary malignant neoplasm of axillary lymph *10/28/2020 Anemia [D64.9] 01/12/2021 Cellulitis [L03.90] 03/24/2021 Nicotine use disorder, F17.2 [F17.200] 03/25/2021 Vitamin D deficiency [E55.9] 07/14/2021 Breast cancer metastasized to axillary lymph no*08/08/2021 Smoking [F17.200] 08/08/2021 Breast cancer in female (HCC) [C50.919] 09/02/2021 Encounter Status:Closed by CLARISA SANDOVAL on 09/03/21 [facility] ANES POSTPROC EVALon 09-02- 022 ANES POSTPROC EVAL HNO ID: [id number] Author: Shayan Turcios MD Service: Anesthesiology Author Type: Anesthesiologist Type: Anesthesia Postprocedure Evaluation Filed: 09/02/2021 4:41 PM Note Text: POST ANESTHESIA EVALUATION NOTE : 1955 Procedure Summary Date: 09/02/21 Room / Location: OR11 / [facility] Anesthesia Start: 1047 Anesthesia Stop: 134 Procedures: MASTECTOMY MODIFIED RADICAL (Left Breast) REMOVAL CATHETER PORT-A-CATH (Right Chest) Diagnosis: 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 neoplasm of upper-outer quadrant of left breast in female, estrogen receptor positive (HCC) Breast cancer metastasized to axillary lymph node, left (HCC) (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 Post Anesthesia Patient Status Patient Evaluation: PACU. PACU/ICU Patient Condition: stable. Anticipated Disposition: phase 2 then home. Neurological Status: aware and responsive. Pulmonary Status: breathing comfortably on room air Airway Control: returned to baseline unsupported. Cardiovascular Status: stable. Pain Management: clinically adequate Postoperative Hydration: acceptable. Intraoperative Events: no significant anesthesia events Post Operative Nausea/Vomiting Status: no significant post operative nausea or vomiting Anesthetic Observations: Recommendation: continue current plan of care. Anesthesia Observations No Documentation SIGNATURE: Shayan Turcios MD PATIENT NAME: Elida Penaloza DATE: September 02, 2021 TIME: 4:41 PM CSN: [id number] [facility] ANES PRE-OPon 09-02-2021 ANES PRE-OP HNO ID: [id number] Author: Shayan Turcios MD Service: Anesthesiology Author Type: Anesthesiologist Type: Anesthesia Preprocedure Evaluation Filed: 09/02/2021 9:56 AM Note Text: ANESTHESIOLOGY DAY OF SURGERY NOTE : 1955 Procedure Information Date/Time: 09/02/21 1100 Procedure: MASTECTOMY MODIFIED RADICAL (Left Breast) - pt to arrive 0930 LEFT axillary reverse lymphatic mapping Location: [facility] OR11 / [facility] OR Surgeons: Lilly Tomas DO Estimated body mass index is 19.57 kg/m? as calculated from the following: Height as of 08/30/21: 157.5 cm (5' 2). Weight as of 08/30/21: 48.5 kg (107 lb). 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 Tracheostomy tube not present Mallampati: II. TM distance: >3 FB. Neck ROM: full ROM without neurological symptoms. Mouth opening: adequate. Short neck: no. Thick neck: no DENTAL Dental findings: edentulous. Dentures, upper: complete. II - ANESTHESIA PLAN ASA Score: 3 Anesthetic Plan: general Airway type: ETT The patient is a current smoker. NPO Status: adequate Monitoring plan: standard ASA. Postoperative analgesic plan: multimodal analgesia. Informed Consent Anesthetic risks, benefits, alternatives, personnel and consent discussed: yes. Patient / Responsible Republican agrees to proceed: yes Patient / Surrogate agrees to blood products: blood products not planned DNR status not reviewed with patient and/or family prior to surgery. Significant changes in the patient condition since the History and Physical, not otherwise documented in primary service progress note: no. Potential Anesthesia issues that may suggest increased risk of complications or contraindication to planned procedure: none. No vitals data found for the desired time range. No current facility-administered medications on file as of 09/02/2021. Outpatient Medications as of 09/02/2021 Medication Sig - anastrozole (ARIMIDEX) 1 mg tablet Take 1 tablet by mouth once daily. (Patient not taking: Reported on 08/30/2021 ) - ergocalciferol 50,000 unit capsule (VITAMIN D2, DRISDOL) Take 1 capsule by mouth one time a week. - anastrozole (ARIMIDEX) 1 mg tablet Take 1 tablet by mouth once daily. (Patient not taking: Reported on 08/30/2021 ) - MELATONIN ORAL Take 1 tablet by mouth at bedtime as needed. I have interviewed and examined the patient. I have reviewed the medical record and/or the pre-anesthesia evaluation, pertinent labs, and test results. This contains updated information obtained within 48 hours of Surgery/Procedure. SIGNATURE: Shayan Turcios MD PATIENT NAME: Elida Penaloza DATE: September 02, 2021 TIME: 9:53 AM CSN: [id number] [facility] BRIEF OP NOTon 09-02-2021 BRIEF OP NOT HNO ID: [id number] Author: Lilly Tomas DO Service: General Surgery Author Type: Physician Type: Brief Op Note Filed: 09/02/2021 4:19 PM Note Text: [facility] BRIEF OP NOT HNO ID: [id number] Author: Lilly Tomas DO Service: General Surgery Author Type: Physician Type: Brief Op Note Filed: 09/02/2021 1:26 PM Note Text: BRIEF OPERATIVE / PROCEDURE NOTE LOG ID: [id number] SURGERY/PROCEDURE DATE: 09/02/2021 INCISION/PROCEDURE START TIME: 11:13 AM INCISION CLOSE/PROCEDURE END TIME: SURGEON(S)/PROCEDURALIST (S) AND MIDDLE SCHOOL COUNSELOR(S): Surgeon(s) and Role: * Lilly Tomas DO - Primary * Lizzette Sánchez MD - Fellow Physician [employer] Press Tender: Kelsie Mendoza PA-C SURGERY/PROCEDURE(S): LEFT modified radical mastectomy with axillary reverse lymphatic mapping, removal of mediport ANESTHESIA: General FINDINGS: 2 clips in breast, 3 blue lymphatics reanamosed ESTIMATED BLOOD LOSS: 50 mls SPECIMENS: 1. LEFT mastectomy 2. LEFT axillary contents level 1AND 2 3. LEFT excess lateral skin 4. LEFT excess medial skin 5. mediport COMPLICATIONS: None PRE-OP/PRE-PROCEDURE DIAGNOSIS: LEFT breast cancer metastatic to lymph node s/p lymph node excision and neoadjuvant chemotherapy POST-OP/POST-PROCEDURE DIAGNOSIS: Same as Preop SIGNATURE: Lilly Tomas DO PATIENT NAME: Elida Penaloza DATE: September 02, 2021 TIME: 1:23 PM [facility] Jared 09-02-2021 CNPN Telephone ([employer]) -------- ELIDA PENALOZA ([id number]) 1955 F Date Time Provider Department 09/02/21 LILLY TOMAS During your visit today, we recorded the following information about you: Merari Silva Adm 09/02/2021 9:05 AM Signed Kely from [facility] [phone] has been trying to reach out to the patient to let her know that her surgery today is NOT covered. [facility] is out of network and they will not be approving it because there are other facilities in there area that do the same procedure. Allergies As of Date: 09/02/2021 Noted Allergy Reaction COVID-19 (SARS-COV-2) VACCINE, VE*05/18/2021 4 - Hives Date Reviewed: 09/02/2021 Reviewed by: Frances Ford RN - Fully Assessed Reason for Visit: Insurance denial [Other] Prescriptions as of 09/03/2021 - oxyCODONE IR (ROXICODONE) 5 mg immediate release tablet Take 1 tablet by mouth every 6 hours as needed for pain. - cefADROxil (DURICEF) 500 mg capsule Take 1 capsule by mouth twice daily for 14 days. - anastrozole (ARIMIDEX) 1 mg tablet Take 1 tablet by mouth once daily. - ergocalciferol 50,000 unit capsule (VITAMIN D2, DRISDOL) Take 1 capsule by mouth one time a week. - anastrozole (ARIMIDEX) 1 mg tablet Take 1 tablet by mouth once daily. - MELATONIN ORAL Take 1 tablet by mouth at bedtime as needed. Facility-Administered Medications as of 09/03/2021 - perflutren lipid microspheres 1.3 mL in NaCl (PF) 0.9% 10 mL injection (DEFINITY) - sodium chloride 0.9 % (flush) 10 mL (BD POSIFLUSH) Problem List As Of Date 09/02/2021 Noted Resolved Malignant neoplasm of upper-outer quadrant of l*10/28/2020 Secondary malignant neoplasm of axillary lymph *10/28/2020 Anemia [D64.9] 01/12/2021 Cellulitis [L03.90] 03/24/2021 Nicotine use disorder, F17.2 [F17.200] 03/25/2021 Vitamin D deficiency [E55.9] 07/14/2021 Breast cancer metastasized to axillary lymph no*08/08/2021 Smoking [F17.200] 08/08/2021 Breast cancer in female (HCC) [C50.919] 09/02/2021 Encounter Status:Closed by MERARI WHEELER on 09/03/21 [facility] ([facility] -------- ELIDA PENALOZA ([id number]) 1955 F Date Time Provider Department 09/02/21 DESTINY THOMAS During your visit today, we recorded the following information about you: AL Mcginnis 09/02/2021 11:36 AM Signed Social Work was alerted by Dr. Tomas of possible financial hardship patient will experience post surgury - due to inability to work several weeks post surgery. Patient will be provided my contact information to have her contact me for potential financail assist through our [employer] [facility] Fund. Social Work will also inquire with AL Bryan at our [facility] if any other resources might be available as patient resides in [place], [place]. AL Solis-S, OSW-C Allergies As of Date: 09/02/2021 Noted Allergy Reaction COVID-19 (SARS-COV-2) VACCINE, VE*05/18/2021 4 - Hives Date Reviewed: 09/02/2021 Reviewed by: Stacie Albright, DAVID - Fully Assessed Prescriptions as of 09/02/2021 - oxyCODONE IR (ROXICODONE) 5 mg immediate release tablet Take 1 tablet by mouth every 6 hours as needed for pain. - cefADROxil (DURICEF) 500 mg capsule Take 1 capsule by mouth twice daily for 14 days. - anastrozole (ARIMIDEX) 1 mg tablet Take 1 tablet by mouth once daily. - ergocalciferol 50,000 unit capsule (VITAMIN D2, ISDOL) Take 1 capsule by mouth one time a week. - anastrozole (ARIMIDEX) 1 mg tablet Take 1 tablet by mouth once daily. - MELATONIN ORAL Take 1 tablet by mouth at bedtime as needed. Facility-Administered Medications as of 09/02/2021 - lidocaine 10 mg/mL (1 %) 1-2 mg injection (XYLOCAINE) - lactated ringers iv infusion - midazolam injection (VERSED) - fentaNYL 50 mcg/mL injection (SUBLIMAZE) - propofol injection (DIPRIVAN) - rocuronium injection - succinylcholine injection (QUELICIN) - lidocaine HCl (PF) 20 mg/mL (2 %) injection - dexAMETHasone sodium phosphate injection (DECADRON) - lactated ringers iv infusion - PHENYLephrine injection Problem List As Of Date 09/02/2021 Noted Resolved Malignant neoplasm of upper-outer quadrant of l*10/28/2020 Secondary malignant neoplasm of axillary lymph *10/28/2020 Anemia [D64.9] 01/12/2021 Cellulitis [L03.90] 03/24/2021 Nicotine use disorder, F17.2 [F17.200] 03/25/2021 Vitamin D deficiency [E55.9] 07/14/2021 Breast cancer metastasized to axillary lymph no*08/08/2021 Smoking [F17.200] 08/08/2021 Breast cancer in female (HCC) [C50.919] 09/02/2021 Encounter Status:Closed by DESTINY THOMAS on 09/02/21 [facility] SURGICAL BREAST SPECIMEN LTon 09-02-2021 [facility] SURGICAL BREAST SPECIMEN LT * * *Final Report* * * DATE OF EXAM: Sep 02 2021 11:52AM [facility] 0638 - [facility] SURGICAL BREAST SPECIMEN LT / PROCEDURE REASON: Other (document in comments) * * * * Physician Interpretation * * * * RESULT: #[id number] - [facility] SURGICAL BREAST SPECIMEN LT SPECIMEN: 09/02/2021 HISTORY: Other (Document In Comments). Correlation is made to exams dated: 07/05/2021 ultrasound biopsy, 07/05/2021 mammogram - [facility], and 06/09/2021 mammogram - [facility]. Left breast specimen demonstrates the ribbon and X clips. IMPRESSION: SPECIMEN Left breast specimen demonstrates the ribbon and X clips. SUMMARY: Urgent Results: The results of the specimen radiograph were discussed with Dr. Tomas's O.R. on 09/02/2021 at 1156 by the medical imaging technologist. Omi Vincent M.D. pt/penrad:09/02/2021 11:57:05 copy to: Daisy HAIDER, ph: [phone] School Librarian(s): RT Tae(R)(M), [facility] Multiple national specialty organizations have released breast cancer screening guidelines for women at average risk for developing breast cancer - guidelines that are based on both evidence and opinion, yet differ on when to start and how often to screen for breast cancer. With representation from Breast Imaging, Internal Medicine, Women's Health, Family Medicine, and Medical/Surgical Oncology, the [facility] has carefully reviewed the data and reached the following consensus: 1) All women should engage in shared decision-making with their providers to decide when to start and how often to screen; 2) All women should have the opportunity to start screening mammography at age 40; 3) For women ages 45-55, we recommend annual screening mammograms; 4) For women ages 55 and over, we support both the transition from an annual to a biennial interval if this aligns more with patient's values and preferences, or continuation with annual screening; 5) All women should discuss with their providers when to stop screening mammograms. Home Planning Consultant Salesperson: Jim Transcribe Date/Time: Sep 02 2021 11:52A Dictated by: OMI VINCENT MD This examination was interpreted and the report reviewed and electronically signed by: OMI VINCENT MD on Sep 02 2021 11:57AM EST [id number] Normal [facility] NURSING PROGon 09-02-2021 NURSING PROG HNO ID: [id number] Author: Amalia Ruano RN Service: Nursing Author Type: Registered Nurse Type: Nursing Progress Note Filed: 09/02/2021 10:04 AM Note Text: PATIENT EDUCATION TOPIC: PROCEDURE / SURGERY: Pre-op Teaching: Protocols PATIENT NAME: Elida Penaloza PATIENT LOCATION: [facility] OR POOL/[facility] OR POOL READINESS TO LEARN COGNITIVE ABILITY: Alert and oriented MOTIVATION TO LEARN: Interested FAMILY SUPPORT: Unable to assess - Family not present INSTRUCTION PROVIDED TO: Patient PATIENT LEARNS BEST BY: Individual Instruction FACTORS AFFECTING LEARNING: None PHYSICAL LIMITATIONS AFFECTING LEARNING: None LEARNING RESPONSE DIAGNOSIS: ADULT: Well Adult PATIENT/FAMILY RESPONSE: Verbalizes understanding of: PRE-OPERATIVE INSTRUCTIONS-Correct action to take to follow pre-operative instructions METHOD OF INSTRUCTION: Individual instruction FOLLOW-UP PLAN: Patient instructed to call with any further issues INSTRUCTIONAL AIDS USED: NA SUPPLEMENTAL MATERIAL PROVIDED TO PATIENT: None REFERRAL (RECOMMENDATION): None Electronically Signed By: Amalia Ruano [facility] OPERATIVE NOon 09-02-2021 OPERATIVE NO HNO ID: [id number] Author: Lilly Tomas DO Service: General Surgery Author Type: Physician Type: Operative Report Filed: 09/02/2021 3:05 PM Note Text: [facility] - Operative Report ELIDA PENALOZA : 1955 AGE: 66. SEX: F PATIENT TYPE: I HOSP SVC: GYNE LOCATION: [facility] ATTENDING PHYSICIAN: LILLY TOMAS CSN NUMBER: [id number] DATE OF SURGERY/PROCEDURE: 09/02/2021 INCISION/PROCEDURE START TIME: 11:13 AM INCISION CLOSE/PROCEDURE END TIME: 1:29 PM PREOPERATIVE DIAGNOSIS: Left breast cancer, metastatic to axillary lymph node, status post neoadjuvant chemotherapy and lymph node excision. POSTOPERATIVE DIAGNOSIS: Left breast cancer, metastatic to axillary lymph node, status post neoadjuvant chemotherapy and lymph node excision. SURGEON: Lilly Tomas D.O MIDDLE SCHOOL COUNSELOR: 1. Lizzette Sánchez MD, fellow 2. SARAY Taylor. Please note, there was no available resident to assist with the case. SURGERY/PROCEDURE: Left modified radical mastectomy, left axillary reverse lymphatic mapping with anastomosis and removal of right MediPort. ANESTHESIA: General INDICATIONS: The patient is a 66-year-old female, who presented to an outside institution with a locally advanced cancer and an abnormal lymph node for which core biopsy of the breast and excision of the lymph node was performed. She underwent neoadjuvant chemotherapy with a good clinical response. Due to her prior lymph node excision, axillary dissection was indicated, axillary reverse lymphatic mapping to help decrease lymphedema with primary anastomosis was discussed. The patient elected for no reconstruction. The risks and benefits of surgery were discussed with her and she agreed to proceed. DESCRIPTION OF PROCEDURE: The patient was brought in to the operating room, placed in supine position on the operating table. A time-out was performed. Patient was identified by name and date. Site and surgery were confirmed. General anesthesia was induced. Her bilateral breasts, chest, left axilla, and upper extremity were prepped and draped in the usual sterile fashion. A 3 mL of Isosulfan blue was injected in a bandlike pattern into the upper inner aspect of her upper arm for axillary lymphatic mapping and this was massaged for approximately 5 minutes with her arm in an elevated position. Pre-op antibiotics were given and SCDs placed. Next, the prior incision over her right MediPort was incised and carried down. The MediPort was identified. The Prolene sutures that were holding the metal port in place were excised and the MediPort was removed in its entirety with the catheter intact. A 2-0 Vicryl was used to close the port insertion site. No back bleeding was encountered. The wound was irrigated. Hemostasis was achieved. The dermis was reapproximated with interrupted 3-0 Vicryl. The skin was closed with a running 4-0 Monocryl. Attention was then turned to the left breast. A horizontal elliptical incision was made in the left breast with care to include the nipple-areolar complex as part of the specimen. Using electrocautery, skin flaps were created superiorly to the clavicle, medially to the lateral portion of sternum, laterally to latissimus dorsi, and inferiorly to the inframammary crease. The breast was then removed from the underlying chest wall in a cranial to caudal manner with care to include the underlying pectoralis fascia as part of the specimen. Laterally, the axillary contents were identified and preserved. The breast was removed in its entirety and oriented with short stitch superior, long stitch lateral, and sent for radiograph which confirmed that there were 2 clips within the specimen from her biopsy proven prior cancer. This was then sent to Pathology for permanent sectioning. Through this incision, the axillary lymph node dissection was performed. Laterally in the Axilla, the clavipectoral fascia was incised, superiorly the axillary vein was identified. The pectoralis major and minor muscles were retracted medially and using the LigaSure, level 2 lymphatics were dissected and included in the specimen. Moving laterally, the lateral thoracic nerve was identified running to the serratus anterior and this was identified, tested, and preserved. The intercostal brachial nerve was identified and preserved. The thoracodorsal nerve, artery and vein were identified running to the latissimus dorsi, and these were identified, tested, and preserved. Laterally in the axilla, there were 3 blue lymphatic channels that were running from the upper extremity into the axilla. These were dissected at length, clipped and sharply cut. The lymph nodes were removed in their entirety and sent to pathology as left axillary contents level 1 and level 2. There was a tributary vein that was identified and preserved at length and this was the appropriate diameter for coaptat (more content not included)... [facility] SURGICAL PATHOLOGYon 022 ADDENDUM 1: [facility] Comment on above: Order Comment: Speci men Type: TISSUE SPECIMENOrdering Facility: [facility] Address: [address] [place] [address] Result Comment: An i mmunohistochemical stain for Ki-67 shows variable positivity with an average of 10% in tumor cells. Laboratory Developed Test (LDT) Disclaimer: Performance characteristics of immunohistochemical, immunofluorescent and chromogenic in-situ hybridization tests have been determined by the performing laboratory within [facility]???s Steven Arechiga [facility] Pathology and Laboratory Medicine [place] ([facility], [facility], [facility] or [facility]) in a manner consistent with CLIA requirements. One or more of these tests have not been cleared or approved by the FDA. [facility] is regulated under CLIA as qualified to perform high-complexity testing. These tests are used for clinical purposes. They should not be regarded as investigational or for research. Positive and negative controls stain appropriately. Addendum electronically signed by Radha Raines MD on 10/15/2021 at 5:08 PM Performed By: #### S ####[facility] LABCLIA [id number] [facility] [id number] [place] [id number] [place] CASE REPORT [facility] Comment on above: Order Comment: Speci men Type: TISSUE SPECIMENOrdering Facility: [facility] Address: [address] [place] [address] Result Comment: Surg ical Pathology Report Case: [id number] Authorizing Provider: Lilly Tomas DO Collected: 09/02/2021 11:42 AM Ordering Location: [facility] Received: 09/02/2021 12:18 PM Operating Room Pathologist: Manuel Razo MD Specimens: A) - BREAST MASTECTOMY LEFT, left mastectomy; 2 clips, 2 cancers B) - DEVICE, gross specimen. Right med port C) - AXILLARY CONTENTS LEFT, Left axillary contents level 1 and 2 D) - BREAST MARGIN LEFT, Left breast excess lateral skin E) - BREAST MARGIN LEFT, Left breasy excess medial skin Performed By: #### S ####[facility] LABCLIA [id number] [address] DIAGNOSIS COMMENT The foci of invasive carcinoma do not show definitive features of treatment effect. [facility] Comment on above: Order Comment: Speci men Type: TISSUE SPECIMENOrdering Facility: [facility] Address: [address] [place] [address] Performed By: #### S ####[facility] LABCLIA [id number] [address] FINAL DIAGNOSIS [facility] Comment on above: Order Comment: Jorge Alberto huff Type: TISSUE SPECIMENOrdering Facility: [facility] Address: [address] [place] [address] Result Comment: A. B reast, left, mastectomy: ---Multiple foci (at least 4) of invasive breast carcinoma without definitive treatment effect, all situated in the upper outer quadrant of the breast: ------Invasive mammary carcinoma with mixed ductal and lobular features, [place] grade 2, situated in the 2:00 aspect of the breast (Ribbon clip), measuring 9 mm in greatest dimension. ------Invasive lobular carcinoma, [place] grade 1, situated in the 1:00 aspect of the breast, measuring 6 mm in greatest dimension. ------Invasive mammary carcinoma with mixed ductal and lobular features, Gabriele grade 2, situated in the 3:00 aspect of the breast (X clip), measuring 5 mm in greatest dimension. ------Invasive ductal carcinoma, Gabriele grade 1, situated in the 1:00 aspect of the breast, measuring 2 mm in greatest dimension. ---Lymph-vascular invasion is not identified. ---The nipple and skin are negative for carcinoma. ---The background breast shows multiple (2) previous biopsy sites, multifocal atypical ductal hyperplasia (ADH), focal atypical lobular hyperplasia (ALH), and fibrocystic changes. ---Microcalcifications are present within ADH and benign breast. ---The surgical margins are negative for carcinoma by greater than 2 mm. ---Metastatic mammary carcinoma in multiple (2 of 2) intramammary lymph nodes; the largest metastatic focus measures 3.5 mm in greatest dimension. No diagnostic morphologic features of treatment effect. Extranodal extension is not identified. [2/2] ---Please see comment and synoptic template below. B. Surgical/medical hardware, port, removal: ---Port grossly identified (gross examination only). C. Lymph nodes, left axillary, levels 1 and 2, dissection: ---Multiple (4) lymph nodes negative for carcinoma. No diagnostic morphologic features of treatment effect. [0/4] D. Breast, left, excess lateral skin, excision: ---Negative for carcinoma. E. Breast, left, excess medial skin, excision: ---Negative for carcinoma. Performed By: #### S ####[facility] LABCLIA [id number] [address] [place] FINAL PERFORMING LAB [facility] Comment on above: Order Comment: Speci men Type: TISSUE SPECIMENOrdering Facility: [facility] Address: [address] [place], [place] [address] Result Comment: Diag nostic interpretation performed at [facility], [address] [place] [address] CLIA# [id number] Bacteriology Teacher: Javier Pryor M.D. Performed By: #### S ####[facility] LABCLIA [id number] [address] [place] GROSS DESCRIPTION [facility] Comment on above: Order Comment: Speci men Type: TISSUE SPECIMENOrdering Facility: [facility] Address: [address], [place] [address] Result Comment: A. B REAST MASTECTOMY LEFT. Received in formalin labeled as breast mastectomy left without axillary contents measuring 19.1 cm (superior to inferior) x 16.9 cm (medial to lateral) x 3.3 cm (anterior to posterior) and weighing 429.2 g. Segments of pectoral muscle are not attached to the deep surface skin. The nipple areolar complex are present with a skin ellipse measuring 20.2 x 8.6 cm in areolar complex measuring 6.9 x 5.5 cm. Imaging and pathology reveals to biopsy marker clips. The superior radial margin is inked blue, the inferior radial margin is inked green, and the deep margin is inked black. Imaging and surgical pathology reveals 2 biopsy marker clips. RIBBON CLIP/Fibrous area #1: The fibrous area associated with a ribbon clip is designated as fibrous area #1 and is located at 2:00. Fibrous area #1 is serially sectioned from lateral to medial and entirely submitted. Fibrous area #1 measures 2.4 (anterior to posterior) x 1.5 cm (medial to lateral) by 1.8 cm (superior to inferior). Fibrous area #1 is located 1.4 cm from the posterior margin, 2.0 cm from the inferior margin and 3.0 cm from the superior margin. Fibrous area #1 is located 3.8 cm from fibrous area #2 and 4.3 cm from fibrous area #3. X CLIP/Fibrous area #2: The fibrous area associated with the X clip is designated as fibrous area #2 and is located at 3:00. Fibrous area #2 is serially sectioned from lateral to medial and entirely submitted. Fibrous area #2 measures 2.4 cm (anterior to posterior) by 1.6 cm (medial to lateral) by 1.6 cm (superior to inferior). Fibrous area #2 is located 1.9 cm from the superior margin, 2.9 cm from the inferior margin and 4.1 cm from the posterior margin. Fibrous area #2 is located 3.8 cm from fibrous area #1 and 2.4 cm from fibrous area #3. Fibrous area #3: The additional fibrous area without a biopsy clip is designated as fibrous area #3 and is located at 1:00. Fibrous area #3 is serially sectioned from medial to lateral into 4 slices and entirely submitted. Fibrous area #3 measures 2.8 cm (anterior to posterior), 1.2 cm (superior to inferior) by 1.1 cm (medial to lateral). Fibrous area #3 abuts the superior margin and is located 2.2 cm from the posterior margin and 3.1 cm from the inferior margin. Fibrous area #3 is located 2.4 cm from fibrous area #2 and 4.3 cm from fibrous area #1. The remaining breast is fibrofatty. No other areas of fibrosis or thickening is identified. No areas of fibrosis or thickening are appreciated in the lower inner quadrant. The cassette designation is as follows: A1. Fibrous area #1 with closest superior margin A2. Fibrous area #1, non marginal A3. Fibrous area #1 with ribbon clip, nonmarginal A4. Fibrous area #1 with closest inferior margin, composite section with A3 A5. Fibrous area #1 with closest posterior margin, composite section with A3 A6. Adjacent tissue medial to fibrous area #1, none marginal A7. Area between fibrous area #1 and fibrous area #2, none marginal A8. Fibrous area #2 with inferior and posterior margin, composite of A9 A9. Fibrous area #2 with X clip, nonmarginal A10. Fibrous area #2 with underlying skin, composite of A9 A11. Closest superior margin to fibrous area #2 A12. Fibrous area #3, Slice #1, with superior margin A13: Fibrous area #3, Slice #1 with superior margin A14: Fibrous area #3, slice #1 A15: Fibrous area #3, Slice #2 A16: Fibrous area #3, Slice #2 A17: Fibrous area #3, slice #2 A18: Fibrous area #3, Slice #3 A19: Fibrous area #3, slice #3 A20: Fibrous area #3, slice #4 A21: Fibrous area #3, slice #4 A22: Fibrous area #3, closet posterior margin A 23-A 24 random lower inner quadrant A 25. Random upper outer quadrant A 26. Random lower outer quadrant A 27. Random upper outer quadrant The time removed from patient with 1142 on 09/02/2021. The time place and formula was 1212 on 09/02/2021. BB 09/03/21 12:15 PM Grossed at [facility] [address] [place], [place] [id number] B. DEVICE. Received fresh designated right MediPort is a roughly triangular purple plastic device grossly consistent with a Mediport which measures 2.9 x 2.8 x 1.4 cm. The one surface has a translucent button measuring 1.2 cm in diameter. The opposing surface has inscribed BARD 2698. Extending from the device is white rubber tubing which measures 20.5 cm in length which has multiple black dash villasenor and the numbers 5, 10, 15, 20 inscribed. No tissue is present. No sections are submitted. The specimen is reviewed with Dr. Joshua post. The specimen is submitted for gross examination only. C. AXILLARY CONTENTS LEFT. Received in formalin designated left axillary contents level 1 and 2 is a segment of fibrofatty tissue which measures 7.9 x 4.7 x 1 cm. Sectioning and palpation reveals multiple martinez-pink to martinez-red lymph nodes which range in greatest dimension from 0.3 to 2.3 cm. The lymph nodes are totally submitted as follows: C1-C2 1 lymph node seriall (more content not included)... Performed By: #### S ####[facility] [id number] [place] [address] [place] SYNOPTIC REPORT Normal [facility] Comment on above: Order Comment: Speci men Type: TISSUE SPECIMENOrdering Facility: [facility] Address: [address] [place], [place] [id number] Result Comment: INVA SIVE CARCINOMA OF THE BREAST: Resection INVASIVE CARCINOMA OF THE BREAST, RESECTION - A, C 8th Edition - Protocol posted: 08/19/2020 SPECIMEN Procedure: Total mastectomy Specimen Laterality: Left TUMOR Tumor Site: Upper outer quadrant Histologic Type: Histologic Type Comment: Multiple histologic types; largest focus is invasive mammary carcinoma Histologic Grade (Gabriele Histologic Score): Glandular (Acinar) / Tubular Differentiation: Score 3 Nuclear Pleomorphism: Score 2 Mitotic Rate: Score 1 Overall Grade: Grade 2 (scores of 6 or 7) Tumor Size: Greatest dimension of largest invasive focus (Millimeters): 9 mm Tumor Focality: Multiple foci of invasive carcinoma Number of Foci: At least: 4 Ductal Carcinoma In Situ (DCIS): Not identified Lobular Carcinoma In Situ (LCIS): Not identified Lymphovascular Invasion: Not identified Dermal Lymphovascular Invasion: Not identified Microcalcifications: Present in non-neoplastic tissue Treatment Effect in the Breast: No definite response to presurgical therapy in the invasive carcinoma Treatment Effect in the Lymph Nodes: No definite response to presurgical therapy in metastatic carcinoma MARGINS Margin Status for Invasive Carcinoma: All margins negative for invasive carcinoma Distance from Invasive Carcinoma to Closest Margin: Greater than: 2 mm REGIONAL LYMPH NODES Regional Lymph Node Status: : Tumor present in regional lymph node(s) Number of Lymph Nodes with Macrometastases: 2 Number of Lymph Nodes with Micrometastases: 0 Size of Largest Aubrie Metastatic Deposit: 3.5 mm Extranodal Extension: Not identified Total Number of Lymph Nodes Examined (sentinel and non-sentinel): 6 Regional Lymph Node Comment: Metastatic disease was identified in intramammary lymph nodes PATHOLOGIC STAGE CLASSIFICATION (pTNM, AJCC 8th Edition) Reporting of pT, pN, and (when applicable) pM categories is based on information available to the pathologist at the time the report is issued. As per the AJCC (Chapter 1, 8th Ed.) it is the managing physician???s responsibility to establish the final pathologic stage based upon all pertinent information, including but potentially not limited to this pathology report. TNM Descriptors: m (multiple foci of invasive carcinoma) TNM Descriptors: y (post-treatment) pT Category: pT1b pN Category: pN1a Breast Biomarker Testing Performed on Previous Biopsy: Estrogen Receptor (ER) Status: Positive (greater than 10% of cells demonstrate nuclear positivity) Percentage of Cells with Nuclear Positivity: 95 % Breast Biomarker Testing Performed on Previous Biopsy: Progesterone Receptor (PgR) Status: Negative Breast Biomarker Testing Performed on Previous Biopsy: HER2 (by immunohistochemistry): Negative (Score 0) Testing Performed on Case Number: Performed by outside institution (not reviewed) on 2:00 carcinoma Performed By: #### S ####[facility] [id number] [place] [id number] [place] Jared 09-01-2021 CNPIggy Telephone (Screwpulp) -------- DIANAELIDA WYNNE ([id number]) 1955 F Date Time Provider Department 09/01/21 LILLY TOMAS During your visit today, we recorded the following information about you: Merari Jessica Pss 09/01/2021 1:49 PM Signed Called patient and unable to leave any message, her mailbox is full. Patient new arrival time is at 9:30 am ,surgery tomorrow 09/02. Allergies As of Date: 09/01/2021 Noted Allergy Reaction COVID-19 (SARS-COV-2) VACCINE, VE*05/18/2021 4 - Hives Date Reviewed: 08/30/2021 Reviewed by: Melida Gtz APRN.EMS DRIVER - Fully Assessed Reason for Visit: Appointment [186] Prescriptions as of 11/03/2021 - abemaciclib (VERZENIO) 150 mg tablet Take 1 tablet (150 mg) by mouth twice daily. - letrozole (FEMARA) 2.5 mg tablet Take 1 tablet by mouth once daily. - ergocalciferol 50,000 unit capsule (VITAMIN D2, DRISDOL) Take 1 capsule by mouth one time a week. - MELATONIN ORAL Take 1 tablet by mouth at bedtime as needed. Facility-Administered Medications as of 11/03/2021 - perflutren lipid microspheres 1.3 mL in NaCl (PF) 0.9% 10 mL injection (DEFINITY) - sodium chloride 0.9 % (flush) 10 mL (BD POSIFLUSH) Problem List As Of Date 09/01/2021 Noted Resolved Malignant neoplasm of upper-outer quadrant of l*10/28/2020 Secondary malignant neoplasm of axillary lymph *10/28/2020 Anemia [D64.9] 01/12/2021 Cellulitis [L03.90] 03/24/2021 Nicotine use disorder, F17.2 [F17.200] 03/25/2021 Vitamin D deficiency [E55.9] 07/14/2021 Breast cancer metastasized to axillary lymph no*08/08/2021 Smoking [F17.200] 08/08/2021 Encounter Status:Closed by MERARI ANDREWS on 11/03/21 [facility] CHARIN Telephone (GENSF) -------- ELIDA PENALOZA ([id number]) 1955 F Date Time Provider Department 09/01/21 CLARISA SANDOVAL During your visit today, we recorded the following information about you: Clarisa Sandoval RN 09/01/2021 11:43 AM Signed Called patient to inquire if she has any questions related to her surgery tomorrow. Patient states she is at work and unable to talk. 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 This RN will continue to follow the patient through surgery and recovery. Social work has also been consulted to assist with finances. Clarisa Sandoval RN Allergies As of Date: 09/01/2021 Noted Allergy Reaction COVID-19 (SARS-COV-2) VACCINE, VE*05/18/2021 4 - Hives Date Reviewed: 08/30/2021 Reviewed by: Melida Gtz APRN.EMS DRIVER - Fully Assessed Reason for Visit: PreOp Call [[id number]] Prescriptions as of 09/01/2021 - anastrozole (ARIMIDEX) 1 mg tablet Take 1 tablet by mouth once daily. - ergocalciferol 50,000 unit capsule (VITAMIN D2, DRISDOL) Take 1 capsule by mouth one time a week. - anastrozole (ARIMIDEX) 1 mg tablet Take 1 tablet by mouth once daily. - MELATONIN ORAL Take 1 tablet by mouth at bedtime as needed. 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 08/30/2021 9:19 AM Addendum 1st attempt Called and unable to leave any message to patient regarding her arrival time at 8 am on her surgery with Dr. Tomas on 09/02/21. Patient needs someone to ride her home ( not uber or herself). [employer] message sent. Allergies As of Date: 08/30/2021 Noted Allergy Reaction COVID-19 (SARS-COV-2) VACCINE, VE*05/18/2021 4 - Hives Date Reviewed: 08/30/2021 Reviewed by: Melida Gtz APRN.EMS DRIVER - Fully Assessed Reason for Visit: Appointment [186] Prescriptions as of 11/03/2021 - abemaciclib (VERZENIO) 150 mg tablet Take 1 tablet (150 mg) by mouth twice daily. - letrozole (FEMARA) 2.5 mg tablet Take 1 tablet by mouth once daily. - ergocalciferol 50,000 unit capsule (VITAMIN D2, DRISDOL) Take 1 capsule by mouth one time a week. - MELATONIN ORAL Take 1 tablet by mouth at bedtime as needed. 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 Merari Chandler 08/17/2021 10:29 AM Signed Spoke to patient , informed her surgery date and appointments related to her procedure with Dr. Tomas on 09/02 Fvw. Phone no. Provided , to call [facility] Kapoor for her covid test. Allergies As of Date: 08/17/2021 Noted Allergy Reaction COVID-19 (SARS-COV-2) VACCINE, VE*05/18/2021 4 - Hives Date Reviewed: 08/05/2021 Reviewed by: Merari Vera LPN - Fully Assessed Reason for Visit: Appointment [186] Prescriptions as of 11/03/2021 - abemaciclib (VERZENIO) 150 mg tablet Take 1 tablet (150 mg) by mouth twice daily. - letrozole (FEMARA) 2.5 mg tablet Take 1 tablet by mouth once daily. - ergocalciferol 50,000 unit capsule (VITAMIN D2, DRISDOL) Take 1 capsule by mouth one time a week. - MELATONIN ORAL Take 1 tablet by mouth at bedtime as needed. 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*08/08/2021 Smoking [F17.200] 08/08/2021 Encounter Status:Closed by MERARI ANDREWS on 11/03/21 [facility] CBC W Auto Differential pane l (Bld)on 07-13-2021 Abs Immature Gran <0.03 <0.10 k/uL [facility] Basophils (Bld) [#/Vol] 0.05 10*3/uL <0.11 k/uL [facility] Basophils/100 WBC (Bld) 0.6 % [facility] Differential cell count method Nom (Bld) Auto [facility] Eosinophils (Bld) [#/Vol] 0.11 10*3/uL <0.46 k/uL [facility] Eosinophils/100 WBC (Bld) 1.4 % [facility] Erythrocyte distribution width (RBC) [Ratio] 12.1 % 11.5 - 15.0 % [facility] Hematocrit (Bld) [Volume fraction] 41.6 % 36.0 - 46.0 % [facility] Hemoglobin (Bld) [Mass/Vol] 14.7 g/dL 11.5 - 15.5 g/dL [facility] Immature Gran % 0.2 % [facility] Lymphocytes (Bld) [#/Vol] 1.64 10*3/uL 1.00 - 4.00 k/uL [facility] Lymphocytes/100 WBC (Bld) 20.4 % [facility] MCH (RBC) [Entitic mass] 33.9 pg 26.0 - 34.0 pg [facility] MCHC (RBC) [Mass/Vol] 35.3 g/dL 30.5 - 36.0 g/dL [facility] MCV (RBC) [Entitic vol] 95.9 fL 80.0 - 100.0 fL [facility] Monocytes (Bld) [#/Vol] 0.63 10*3/uL <0.87 k/uL [facility] Monocytes/100 WBC (Bld) 7.8 % [facility] Neutrophils (Bld) [#/Vol] 5.60 10*3/uL 1.45 - 7.50 k/uL [facility] Neutrophils/100 WBC (Bld) 69.6 % [facility] Nucleated RBC (Bld) [#/Vol] 10*3/uL <0.01 k/uL [facility] Nucleated RBC/100 WBC (Bld) [Ratio] 0.0 /100 WBC [facility] Platelet mean volume (Bld) [Entitic vol] 9.7 fL 9.0 - 12.7 fL [facility] Platelets (Bld) [#/Vol] 169 10*3/uL 150 - 400 k/uL [facility] RBC (Bld) [#/Vol] 4.34 10*6/uL 3.90 - 5.2 0 m/uL [facility] WBC (Bld) [#/Vol] 8.05 10*3/uL 3.70 - 11. 00 k/uL [facility] Comprehensive metabolic 2000 panelon 07-13-2021 Albumin [Mass/Vol] 4.1 g/dL 3.9 - 4.9 g/dL [facility] ALP [Catalytic activity/Vol] 86 U/L 34 - 123 U/L [facility] ALT [Catalytic activity/Vol] 17 U/L 7 - 38 U/L [facility] Anion gap [Moles/Vol] 12 mmol/L 9 - 18 mmol/L [facility] AST [Catalytic activity/Vol] 18 U/L 13 - 35 U/L [facility] Bilirubin [Mass/Vol] 0.3 mg/dL 0.2 - 1 .3 mg/dL [facility] Calcium [Mass/Vol] 9.2 mg/dL 8.5 - 10. 2 mg/dL [facility] Chloride [Moles/Vol] 103 mmol/L 97 - 10 5 mmol/L [facility] CO2 [Moles/Vol] 22 mmol/L 22 - 30 mmol/L [facility] Creatinine [Mass/Vol] 0.61 mg/dL 0.58 - 0.96 mg/dL [facility] Estimated Glomerular Filtration Rate 100 mL/min/1.73m >=60 mL/min/1.73m [facility] Glucose [Mass/Vol] 106 mg/dL High 74 - 99 mg/dL [facility] Potassium [Moles/Vol] 3.9 mmol/L 3.7 - 5.1 mmol/L [facility] Protein [Mass/Vol] 6.9 g/dL 6.3 - 8.0 g/dL [facility] Sodium [Moles/Vol] 137 mmol/L 136 - 144 mmol/L [facility] Urea nitrogen [Mass/Vol] 18 mg/dL 7 - 21 mg/dL [facility] MRI BREAST CLIP PLACEMENT LT on 07-05-2021 [facility] US BIOPSY BREAST LTon 2021 [facility] US BREAST LTD LTon 2 [facility] CANELO DIAGNOSTIC LTon 06-10-19 [facility] US BREAST LTD LTon 2 [facility] MRI BREAST WO/W IVCON BILon 05-14-2021 MRI BREAST WO/W IVCON GERARDO * * *Final Report* * * * * * SEE BOTTOM OF REPORT FOR ADDENDED TEXT * * * DATE OF EXAM: May 14 2021 9:24AM [facility] [id number] - MRI BREAST WO/W IVCON GERARDO / PROCEDURE REASON: multiple diagnoses * * * * Physician Interpretation * * * * THIS REPORT HAS BEEN AMENDED. 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 The exam is performed for evaluation of response to treatment. RESULT: No prior exams were available for comparison. Interpretation of this MRI was correlated with available mammograms and ultrasounds. Informed consent was obtained from the patient. MRI images were obtained at 1 mm intervals with a dedicated breast MRI. Pre and post contrast images were obtained at 1 minute intervals for 6 minutes. The patient was studied using the Sentinelle dedicated breast coil in the Siemens 1.5 Aliyah scanner. Initial axial STIR imaging was carried out followed by axial T1-weighted GRE imaging both before and after IV administration of 10 ml of Dotarem. Subsequently, subtraction imaging and 3-D reconstruction were completed on an independent workstation. An additional 4 minute high resolution sequence was performed after the first two 1 minute post-contrast sequences. 3D image post-processing was performed on an independent workstation with attending physician supervision including creation of quantitative dynamic contrast uptake subtraction images and multiplanar reconstruction (MPR). FINDINGS: Bilateral background breast enhancement is mild. Right breast: Post surgical changes of excisional biopsy in the posterior depth of the breast at 12:00. No suspicious mass or abnormal enhancement to suggest malignancy. Left breast: A 0.4 x 0.2 x 0.4cm heterogeneously enhacing focus of delayed washout kinetics in the posterior depth of the breast at 2:00, likely represent residual IDC (series 7, image 83 ). According to the available previous MRI report, the mass measured 1.5 x 1.3 x 1.7cm. Mild diffuse skin thickening and edema with associated heterogeneous enhancement predominantly in the lower inner and outer apects of the breast (series 7, image 48 ). A 0.4 cm heterogeneously enhancing focus in the anterior depth of the breast at 3:00 ( series 7, image 71, Sagittal 206). The post contrast dynamic images demonstrates rapid initial rise and delayed washout type kinetics. This may represent the correlate for the ultrasound finding on an outside study. Lymph nodes: No axillary or internal mammary lymphadenopathy. No evidence of signal void of biopsy clip in the left axilla to correspond to the biopsy proven lymph node. Extramammary: Unremarkable. The postcontrast images demonstrate adequate bolus within the heart. IMPRESSION: SUSPICIOUS FINDING - BIOPSY SHOULD BE CONSIDERED Left breast: BIRADS 4 1. Residual 0.4 cm heterogeneously enhacing focus in the posterior depth of the breast at 2:00, in the expected site of biopsy proven IDC, suggests imaging response to treatment. Surgical consult is recommended. The patient is under the care of Dr. Gregory. 2. Mild diffuse skin thickening and edema with associated heterogeneous enhancement, predominantly in the dependent aspect of the breast, could be related to malignancy vs inflammmation/infection. Clinical correlation is recommended. The need for skin punch biopsy should be determined clinically. 3. A 0.4 cm heterogeneously enhancing focus in the anterior depth of the breast at 3:00 is suspicious and may represent the correlate for the ultrasound finding on an outside study. Second look US is recommended. If no sonographic correlate, MRI guided biopsy is recommended. 4. No axillary lymphadenopathy. No evidence of signal void of biopsy clip in the left axilla to correspond to the biopsy proven lymph node. Right breast: BIRADS 2 No MRI evidence of malignancy. The exam was reviewed by a staff physician. Constantino Junior M.D. sb,by/jim:05/14/2021 12:37:04 School Librarian(s): RT Joel(Xiao)(M), [facility] MRI BI-RADS: 4 Suspicious finding - Biopsy should be considered Multiple national specialty organizations have released breast cancer screening guidelines for women at average risk for developing breast cancer - guidelines that are based on both evidence and opinion, yet differ on when to start and how often to screen for breast cancer. With representation from Breast Imaging, Internal Medicine, Women's Health, Family Medicine, and Medical/Surgical Oncology, the [facility] has carefully reviewed the data and reached the following consensus: 1) All women should engage in shared decision-making with their providers to decide when to start and how often to screen; 2) All women should have the opportunity to start screening mammography at age 40 (more content not included)... Normal [facility] MRI BREAST WO/W IVCON BILATo n 05-14-2021 [facility] Culture, Blood (WB)on 2021 CUB No growth in 5 days. Normal [facility] Comment on above: Performed By: #### M 200.1000 #### [facility] [address] [place], [address] CUB No growth in 5 days. Normal [facility] Comment on above: Performed By: #### L 300.3900, L503.6005, L300.4310, L100.0100, L500.4050, M200.1000 ####[facility] [address] [place], [address] Comprehensive Metabolic Prof ilon 03-25-2021 ALB Normal 3.2-5.0 [facility] Comment on above: Result Comment: Canc elled via OM: Order cancelled - Patient discharged Performed By: #### L 500.4050 #### [facility] [address] [place], [address] ALK P Normal 45-117 [facility] Comment on above: Result Comment: Canc elled via OM: Order cancelled - Patient discharged Performed By: #### L 500.4050 #### [facility] [address] [place], [address] ALT Normal 13-56 [facility] Comment on above: Result Comment: Canc elled via OM: Order cancelled - Patient discharged Performed By: #### L 500.4050 #### [facility] [address] [place], [address] AST Normal 15-37 [facility] Comment on above: Result Comment: Canc elled via OM: Order cancelled - Patient discharged Performed By: #### L 500.4050 #### [facility] [address] [place], [address] BUN Normal 7-18 [facility] Comment on above: Result Comment: Canc elled via OM: Order cancelled - Patient discharged Performed By: #### L 500.4050 #### [facility] [address] [place], [address] BUN/CRE Normal 10-20 [facility] Comment on above: Result Comment: Canc elled via OM: Order cancelled - Patient discharged Performed By: #### L 500.4050 #### [facility] [address] [place], [address] CA,Total Normal 8.5-10.1 [facility] Comment on above: Result Comment: Canc elled via OM: Order cancelled - Patient discharged Performed By: #### L 500.4050 #### [facility] [address] [place], [address] CL Normal 98-107 [facility] Comment on above: Result Comment: Canc elled via OM: Order cancelled - Patient discharged Performed By: #### L 500.4050 #### [facility] [address] [place], [address] CO2 Normal 21.0-32.0 [facility] Comment on above: Result Comment: Canc elled via OM: Order cancelled - Patient discharged Performed By: #### L 500.4050 #### [facility] [address] [place], [address] CREAT,SERUM Normal 0.55-1.02 [facility] Comment on above: Result Comment: Canc elled via OM: Order cancelled - Patient discharged Performed By: #### L 500.4050 #### [facility] [address] [place], [address] EST GFR Normal >60 [facility] Comment on above: Result Comment: Canc elled via OM: Order cancelled - Patient discharged Performed By: #### L 500.4050 #### [facility] [address] [place], [address] EST GFR - AA Normal >60 [facility] Comment on above: Result Comment: Canc elled via OM: Order cancelled - Patient discharged Performed By: #### L 500.4050 #### [facility] [address] [place], [address] GAP Normal 5-15 [facility] Comment on above: Result Comment: Canc elled via OM: Order cancelled - Patient discharged Performed By: #### L 500.4050 #### [facility] [address] [place], [address] GLU Normal 74-106 [facility] Comment on above: Result Comment: Canc elled via OM: Order cancelled - Patient discharged Performed By: #### L 500.4050 #### [facility] [address] [place], [address] Potassium Normal 3.5-5.1 [facility] Comment on above: Result Comment: Canc elled via OM: Order cancelled - Patient discharged Performed By: #### L 500.4050 #### [facility] [address] [place], [address] T BILI Normal 0.20-1.00 [facility] Comment on above: Result Comment: Canc elled via OM: Order cancelled - Patient discharged Performed By: #### L 500.4050 #### [facility] [address] [place], [address] T PROT Normal 6.4-8.2 [facility] Comment on above: Result Comment: Canc elled via OM: Order cancelled - Patient discharged Performed By: #### L 500.4050 #### [facility] [address] [place], [address] Comprehensive Metabolic Profil Normal 136-145 [facility] Comment on above: Result Comment: Canc elled via OM: Order cancelled - Patient discharged Performed By: #### L 500.4050 #### [facility] [address] [place], [address] Comprehensive Metabolic Prof ilon 03-24-2021 Albumin [Mass/Vol] 2.4 g/dL Low 3.2-5.0 [facility] Comment on above: Performed By: #### L 500.4050 ####[facility] [address] [place], [address] Albumin/Globulin [Mass ratio] 0.8 {ratio} Low 0.9-2.4 [facility] Comment on above: Performed By: #### L 500.4050 ####[facility] [address] [place], [address] ALK P 71 U/L Normal 45-117 [facility] Comment on above: Performed By: #### L 500.4050 ####[facility] [address] [place], [address] ALT [Catalytic activity/Vol] 21 U/L Normal 13-56 [facility] Comment on above: Performed By: #### L 500.4050 ####[facility] [address] [place], [address] AST [Catalytic activity/Vol] 15 U/L Normal 15-37 [facility] Comment on above: Performed By: #### L 500.4050 ####[facility] [address] [place], [address] Bilirubin [Mass/Vol] 0.60 mg/dL Normal 0.20-1.00 [facility] Comment on above: Result Comment: For patients on eltrombopag therapy, use of Dimension [place] TBIL is not recommended. Performed By: #### L 500.4050 ####[facility] [address] [place], [address] BUN/CRE 19.6 RATIO Normal 10-20 [facility] Comment on above: Performed By: #### L 500.4050 ####[facility] [address] [place], [address] CA,Total 8.0 mg/dL Low 8.5-10.1 [facility] Comment on above: Performed By: #### L 500.4050 ####[facility] [address] [place], [address] Chloride [Moles/Vol] 107 mmol/L Normal 98-107 [facility] Comment on above: Performed By: #### L 500.4050 ####[facility] [address] [place], [address] CO2 [Moles/Vol] 23.0 mmol/L Normal 21.0-32.0 [facility] Comment on above: Performed By: #### L 500.4050 ####[facility] [address] [place], [address] Creatinine [Mass/Vol] 0.46 mg/dL Low 0.55-1.[address] [facility] Comment on above: Result Comment: The validity of the calculated GFR GFRAA in patients over 70 years has not been determined. Clinical correlation is essential. Performed By: #### L 500.4050 ####[facility] [address] [place], [address] ECRCL 99.00 ml/min Normal [facility] Comment on above: Performed By: #### L 500.4050 ####[facility] [address] [place], [address] EST GFR - AA 176 mL/min Normal >60 [facility] Comment on above: Result Comment: Afri can Tajik GFR Calc Performed By: #### L 500.4050 ####[facility] [address] [place], [address] GAP 7 Normal 5-15 [facility] Comment on above: Performed By: #### L 500.4050 ####[facility] [address] [place], [address] GFR/1.73 sq M.predicted among non-blacks MDRD (S/P/Bld) [Vol rate/Area] 145 mL/min/{1.73_m2} Normal >60 [facility] Comment on above: Result Comment: Non- GFR Calc Performed By: #### L 500.4050 ####[facility] [address] [place], [address] Globulin (S) [Mass/Vol] 3.1 g/dL Normal 2.2-4.2 [facility] Comment on above: Performed By: #### L 500.4050 ####[facility] [address] [place], [address] Glucose [Mass/Vol] 86 mg/dL Normal 74-106 [facility] Comment on above: Performed By: #### L 500.4050 ####[facility] [address] [place], [address] Potassium [Moles/Vol] 3.3 mmol/L Low 3.5-5.[address] [facility] Comment on above: Performed By: #### L 500.4050 ####[facility] [address] [place], [address] Sodium [Moles/Vol] 137 mmol/L Normal 136-145 [facility] Comment on above: Performed By: #### L 500.4050 ####[facility] [address] [place], [address] T PROT 5.5 g/dL Low 6.4-8.2 [facility] Comment on above: Performed By: #### L 500.4050 ####[facility] [address] [place], [address] Urea nitrogen [Mass/Vol] 9 mg/dL Normal 7-18 [facility] Comment on above: Performed By: #### L 500.4050 ####[facility] [address] [place], [address] Vancomycin, Trough Levelon 0 03-24-2021 VANCO, TROUGH 6.1 ug/mL Normal 5.0-15.0 [facility] Comment on above: Order Comment: 0200 Result Comment: VANC OMYCIN STANDARED DRUG THERAPY TROUGH LEVEL: 5.0 - 15.0 mg/L VANCOMYCIN HIGH INTENSITY THERAPY TROUGH LEVEL: 15.0 - 20.0 mg/L High Intensity therapy recommended for serious life threatening infections include: - Meningitis -Endocarditis -Pneumonia (Ventilator/Healtcare Associated) -Sepsis PLEASE CONTACT PHARMACY SERVICES (#[id number]) FOR INTERPRETATION OF RESULTS. Performed By: #### L 501.8820 ####[facility] [address] [place], [address] Wound Cultureon 03-24-2021 WC Cefoxitin POS Doxycycline <=0.5 S Clindamycin 0.25 S Clindamycin.induced NEG Erythromycin >=8 R Gentamicin <=0.5 S Levofloxacin 0.25 S Linezolid 2 S Moxifloxacin <=0.25 S Oxacillin >=4 R Tetracycline <=1 S Trimethoprim+Sulfamethox azole <=10 S Vancomycin <=0.5 S Normal [facility] Comment on above: Performed By: #### M 100.2000, M100.3000 ####[facility] [address] [place], [address] Basic Metabolic Profile (BMP )on 03-23-2021 BUN Normal 7-18 [facility] Comment on above: Result Comment: Greg victor via OM: Ordered Performed By: #### L 500.2500, L100.0100 ####[facility] [address] [place], [address] BUN/CRE Normal 10-20 [facility] Comment on above: Result Comment: Greg victor via OM: Ordered Performed By: #### L 500.2500, L100.0100 ####[facility] [address] [place], [address] CA,Total Normal 8.5-10.1 [facility] Comment on above: Result Comment: Canc elled via OM: MD Ordered Performed By: #### L 500.2500, L100.0100 ####[facility] [address] [place], [address] CL Normal 98-107 [facility] Comment on above: Result Comment: Canc elled via OM: MD Ordered Performed By: #### L 500.2500, L100.0100 ####[facility] [address] [place], [address] CO2 Normal 21.0-32.0 [facility] Comment on above: Result Comment: Canc elled via OM: MD Ordered Performed By: #### L 500.2500, L100.0100 ####[facility] [address] [place], [address] CREAT,SERUM Normal 0.55-1.02 [facility] Comment on above: Result Comment: Canc elled via OM: MD Ordered Performed By: #### L 500.2500, L100.0100 ####[facility] [address] [place], [address] EST GFR Normal >60 [facility] Comment on above: Result Comment: Canc elled via OM: MD Ordered Performed By: #### L 500.2500, L100.0100 ####[facility] [address] [place], [address] EST GFR - AA Normal >60 [facility] Comment on above: Result Comment: Canc elled via OM: MD Ordered Performed By: #### L 500.2500, L100.0100 ####[facility] [address] [place], [address] GAP Normal 5-15 [facility] Comment on above: Result Comment: Canc elled via OM: MD Ordered Performed By: #### L 500.2500, L100.0100 ####[facility] [address] [place], [address] GLU Normal 74-106 [facility] Comment on above: Result Comment: Canc elled via OM: MD Ordered Performed By: #### L 500.2500, L100.0100 ####[facility] [address] [place], [address] Potassium Normal 3.5-5.1 [facility] Comment on above: Result Comment: Canc elled via OM: MD Ordered Performed By: #### L 500.2500, L100.0100 ####[facility] [address] [place], [address] Basic Metabolic Profile (BMP) Normal 136-145 [facility] Comment on above: Result Comment: Canc elled via OM: MD Ordered Performed By: #### L 500.2500, L100.0100 ####[facility] [address] [place], [address] CBC W/Diff, Automatedon 02-0 -2021 Absolute Lymph 0.74 X10 3/uL Low 0.83-4.51 [facility] Comment on above: Performed By: #### L 500.2500, L100.0100 ####[facility] [address] [place], [address] Absolute Neut 5.0 X10 3/uL Normal 2.0-7.7 [facility] Comment on above: Performed By: #### L 500.2500, L100.0100 ####[facility] [address] [place], [address] Basophils/100 WBC (Bld) 0.5 % Normal 0-1 [facility] Comment on above: Performed By: #### L 500.2500, L100.0100 ####[facility] [address] [place], [address] Eosinophils/100 WBC (Bld) 0.2 % Normal 0-5 [facility] Comment on above: Performed By: #### L 500.2500, L100.0100 ####[facility] [address] [place], [address] Erythrocyte distribution width (RBC) [Ratio] 13.3 % Normal 11.6-14.6 [facility] Comment on above: Performed By: #### L 500.2500, L100.0100 ####[facility] [address] [place], [address] Hematocrit (Bld) [Volume fraction] 30.5 % Low 37-47 [facility] Comment on above: Performed By: #### L 500.2500, L100.0100 ####[facility] [address] [place], [address] Hemoglobin (Bld) [Mass/Vol] 10.6 g/dL Low 12.0-15.0 [facility] Comment on above: Performed By: #### L 500.2500, L100.0100 ####[facility] [address] [place], [address] IG% 1.000 High 0.0-0.9 [facility] Comment on above: Result Comment: IG% - Immature Granulocytes (promyelocytes, myelocytes and metamyelocytes) > 1% indicates that a LEFT SHIFT is Present. Performed By: #### L 500.2500, L100.0100 ####[facility] [address] [place], [address] Lymphocytes/100 WBC (Bld) 11.9 % Low 19-41 [facility] Comment on above: Performed By: #### L 500.2500, L100.0100 ####[facility] [address] [place], [address] MCH (RBC) [Entitic mass] 38.0 pg High 27.0-32.0 [facility] Comment on above: Performed By: #### L 500.2500, L100.0100 ####[facility] [address] [place], [address] MCHC (RBC) [Mass/Vol] 34.8 g/dL Normal 32-[address] [facility] Comment on above: Performed By: #### L 500.2500, L100.0100 ####[facility] [address] [place], [address] MCV (RBC) [Entitic vol] 109.3 fL High 81-99 [facility] Comment on above: Performed By: #### L 500.2500, L100.0100 ####[facility] [address] [place], [address] Monocytes/100 WBC (Bld) 6.5 % Normal 0-10 [facility] Comment on above: Performed By: #### L 500.2500, L100.0100 ####[facility] [address] [place], [address] Neutrophils/100 WBC (Bld) 79.9 % High 47-70 [facility] Comment on above: Performed By: #### L 500.2500, L100.0100 ####[facility] [address] [place], [address] Nucleated RBC (Bld) [#/Vol] 0 10*3/uL Normal 0-5 [facility] Comment on above: Performed By: #### L 500.2500, L100.0100 ####[facility] [address] [place], [address] Platelet mean volume (Bld) [Entitic vol] 10.9 fL Normal 6.2-12.0 [facility] Comment on above: Performed By: #### L 500.2500, L100.0100 ####[facility] [address] [place], [address] Platelets (Bld) [#/Vol] 156 10*3/uL Normal 150-450 [facility] Comment on above: Performed By: #### L 500.2500, L100.0100 ####[facility] [address] [place], [address] RBC (Bld) [#/Vol] 2.79 10*6/uL Low 4.2-5.4 [facility] Comment on above: Performed By: #### L 500.2500, L100.0100 ####[facility] [address] [place], [address] RDW SD 53.2 fl High 35.1-43.9 [facility] Comment on above: Performed By: #### L 500.2500, L100.0100 ####[facility] [address] [place], [address] WBC (Bld) [#/Vol] 6.2 10*3/uL Normal 4.4-11.0 [facility] Comment on above: Performed By: #### L 500.2500, L100.0100 ####[facility] [address] [place], [address] COVID 19 AG RAPID (RN COLLEC T)on 03-23-2021 SARS-CoV-2 (COVID-19) RNA FAIZAN+probe Ql (Unsp spec) *Negative results from patients with symptom onset beyond five days should be treated as presumptive and confirmed by a molecular assay if clinically necessary. Negative results should not be used as the sole basis for treatment or for patient management. COVID 19 AG RAPID (RN COLLECT) *Positive results do not differentiate between SARS-CoV and SARS-CoV-2. If differentation of the specific SARS virus is desired an additional sample and an additional order is required. COVID 19 AG RAPID (RN COLLECT) * This test has not been FDA cleared or approved; the test has been authorized by FDA under an Emergency Use Authorization (EAU) for use by laboratories certified under CLIA that meet the requirements to perform moderate, high, or waived complexity tests. COVID 19 AG RAPID (RN COLLECT) Normal Reference Range: Negative SARS-CoV-2 (COVID 19) Negative RAPID METHOD Quidel Aura Analyzer AMRIT Normal [facility] Comment on above: Performed By: #### M 100.505 #### [facility] [address] [place], [address] Comprehensive Metabolic Prof ilon 03-23-2021 Albumin [Mass/Vol] 2.6 g/dL Low 3.2-5.0 [facility] Comment on above: Performed By: #### L 500.4050 #### [facility] [address] [place], [address] Albumin/Globulin [Mass ratio] 0.8 {ratio} Low 0.9-2.4 [facility] Comment on above: Performed By: #### L 500.4050 #### [facility] [address] [place], [address] ALK P 80 U/L Normal 45-117 [facility] Comment on above: Performed By: #### L 500.4050 #### [facility] [address] [place], [address] ALT [Catalytic activity/Vol] 25 U/L Normal 13-56 [facility] Comment on above: Performed By: #### L 500.4050 #### [facility] [address] [place], [address] AST [Catalytic activity/Vol] 16 U/L Normal 15-37 [facility] Comment on above: Performed By: #### L 500.4050 #### [facility] [address] [place], [address] Bilirubin [Mass/Vol] 0.80 mg/dL Normal 0.20-1.00 [facility] Comment on above: Result Comment: For patients on eltrombopag therapy, use of Dimension [place] TBIL is not recommended. Performed By: #### L 500.4050 #### [facility] [address] [place], [address] BUN/CRE 32.8 RATIO High 10-20 [facility] Comment on above: Performed By: #### L 500.4050 #### [facility] [address] [place], [address] CA,Total 8.1 mg/dL Low 8.5-10.1 [facility] Comment on above: Performed By: #### L 500.4050 #### [facility] [address] [place], [address] Chloride [Moles/Vol] 103 mmol/L Normal 98-107 [facility] Comment on above: Performed By: #### L 500.4050 #### [facility] [address] [place], [address] CO2 [Moles/Vol] 25.0 mmol/L Normal 21.0-32.0 [facility] Comment on above: Performed By: #### L 500.4050 #### [facility] [address] [place], [address] Creatinine [Mass/Vol] 0.43 mg/dL Low 0.55-1.[address] [facility] Comment on above: Result Comment: The validity of the calculated GFR GFRAA in patients over 70 years has not been determined. Clinical correlation is essential. Performed By: #### L 500.4050 #### [facility] [address] [place], [address] ECRCL 105.91 ml/min Normal [facility] Comment on above: Performed By: #### L 500.4050 #### [facility] [address] [place], [address] EST GFR - AA 192 mL/min Normal >60 [facility] Comment on above: Result Comment: Afri can Tajik GFR Calc Performed By: #### L 500.4050 #### [facility] [address] [place], [address] GAP 5 Normal 5-15 [facility] Comment on above: Performed By: #### L 500.4050 #### [facility] [address] [place], [address] GFR/1.73 sq M.predicted among non-blacks MDRD (S/P/Bld) [Vol rate/Area] 159 mL/min/{1.73_m2} Normal >60 [facility] Comment on above: Result Comment: Non- GFR Calc Performed By: #### L 500.4050 #### [facility] [address] [place], [address] Globulin (S) [Mass/Vol] 3.4 g/dL Normal 2.2-4.2 [facility] Comment on above: Performed By: #### L 500.4050 #### [facility] [address] [place], [address] Glucose [Mass/Vol] 89 mg/dL Normal 74-106 [facility] Comment on above: Performed By: #### L 500.4050 #### [facility] [address] [place], [address] Potassium [Moles/Vol] 3.2 mmol/L Low 3.5-5.[address] [facility] Comment on above: Performed By: #### L 500.4050 #### [facility] [address] [place], [address] Sodium [Moles/Vol] 133 mmol/L Low 136-145 [facility] Comment on above: Performed By: #### L 500.4050 #### [facility] [address] [place], [address] T PROT 6.0 g/dL Low 6.4-8.2 [facility] Comment on above: Performed By: #### L 500.4050 #### [facility] [address] [place], [address] Urea nitrogen [Mass/Vol] 14 mg/dL Normal 7-18 [facility] Comment on above: Performed By: #### L 500.4050 #### [facility] [address] [place], [address] Consultation - Infectious Dx on 03-23-2021 Consultation - Infectious Dx [facility] Medical Records Department [address] [place] [address] Consultation - Infectious Dx 03/23/21 1122 MR#: [id number] Acct: [id number] Name: ELIDA PENALOZA Rep #: [id number] : 1955 65 From: Steven Lazo MD PCP: Care Physician,No Primary Status:ADM IN Location: [place] [address] Assessment Plan Assessment/Plan (1) Paronychia of left ring finger: PLAN: Plastic surgery consulted. On vanc/zosyn, will stop clinda (no sign of necrotizing fasciitis or gas gangrene). Cxs pending, CT done which showed no osteo or abscess. Unvaccinated for covid, she agrees to receive 1st dose here. Will follow, thank you (2) Acquired immunocompromised state: HPI Consult Data Date of Consult: 03/23/21 HPI Narrative HPI Narrative: ELIDA PENALOZA, is a 65 F on chemo for breast cancer, last dose about a week ago, presented with sx starting 03/20 with pain/redness of L 4th finger. Is R handed. No inciting events. No issues with R chest port. No fever or chills. Unvaccinated for covid. Had progressive inflammation, pain was moderate/severe and spread to wrist. Developed blistering. Came to ED, admitted on vanc/zosyn. Hand starting to feel better. Full ROS performed and neg except as noted above. PFSH Medical History Breast cancer Port-A-Cath in place Smoker Home Medications ergocalciferol (vitamin D2) 1,250 mcg PO TH 03/22/21 [History Last Taken 03/18/21] Allergy/AdvReac Type Severity Reaction Status Date / Time No Known Allergies Allergy Verified 03/22/21 12:24 Family History (Updated 03/22/21 @ 15:49 by Kathy Rubin COUNCIL MEMBER, COUNCIL MEMBER-C) Mother Cancer Father Cancer Surgical History H/O tubal ligation History of bunionectomy Social History (Updated 03/22/21 @ 16:13 by Kathy Rubin COUNCIL MEMBER, COUNCIL MEMBER-C) Smoking Status: Current every day smoker tobacco type: cigarettes alcohol intake: never substance use type: does not use Physical Exam Const alert, oriented x3 and no apparent distress General Appearance: cooperative Exam Limitations: no limitations HEENT normocephalic and head/scalp atraumatic Eyes PERRL and EOMs intact bilaterally Neck supple and No nodes Resp normal air movement and clear to auscultation bilaterally Cardio regular rate and regular rhythm GI soft to palpation, non-tender and non-distended Extremity no clubbing, cyanosis or edema Skin Skin Narrative: L 4th finger with diffuse swelling, pain, redness, and large bulla. L wrist limited ROM. R chest port no inflammation Neuro CN's II-XII intact bilaterally Lab / Micro Data Result Diagrams: 03/23/21 05:44 03/23/21 05:44 Labs: Laboratory Results - last 24 hr 03/22/21 12:10: WBC 8.4, RBC 3.12 L, Hgb 11.5 L, Hct 33.0 L, MCV 105.8 H, MCH 36.9 H, MCHC 34.8, RDW Std Deviation 51.0 H, RDW Coeff of Eliseo 13.3, Plt Count 158, MPV 10.3, Immature Gran % (Auto) 0.700, Neut % (Auto) 86.4 H, Lymph % (Auto) 5.3 L, [place] % (Auto) 7.1, Eos % (Auto) 0.0, Baso % (Auto) 0.5, Absolute Neuts (auto) 7.2, Absolute Lymphs (auto) 0.44 L, Nucleated RBC % 0 03/22/21 12:10: PT 13.2, INR 1.1, APTT 30.7 03/22/21 12:10: Sodium 131 L, Potassium 3.5, Chloride 101, Carbon Dioxide 23.0, Anion Gap 7, BUN 15, Creatinine 0.52 L, Estim Creat Clear Calc 87.58, Est GFR (MDRD) Af Amer 153, Est GFR (MDRD) Non-Af 127, BUN/Creatinine Ratio 28.9 H, Glucose 128 H, Calcium 8.5, Total Bilirubin 1.40 H, AST 16, ALT 29, Alkaline Phosphatase 82, Total Protein 6.6, Albumin 3.1 L, Globulin 3.5, Albumin/Globulin Ratio 0.9 03/22/21 12:10: Lactic Acid 1.0 03/23/21 05:44: WBC 6.2, RBC 2.79 L, Hgb 10.6 L, Hct 30.5 L, MCV 109.3 H, MCH 38.0 H, MCHC 34.8, RDW Std Deviation 53.2 H, RDW Coeff of Eliseo 13.3, Plt Count 156, MPV 10.9, Immature Gran % (Auto) 1.000 H , Neut % (Auto) 79.9 H, Lymph % (Auto) 11.9 L, [place] % (Auto) 6.5, Eos % (Auto) 0.2, Baso % (Auto) 0.5, Absolute Neuts (auto) 5.0, Absolute Lymphs (auto) 0.74 L, Nucleated RBC % 0 03/23/21 05:44: Sodium 133 L, Potassium 3.2 L, Chloride 103, Carbon Dioxide 25.0, Anion Gap 5, BUN 14, Creatinine 0.43 L, Estim Creat Clear Calc 105.91, Est GFR (MDRD) Af Amer 192, Est GFR (MDRD) Non-Af 159, BUN/Creatinine Ratio 32.8 H, Glucose 89, Calcium 8.1 L, Total Bilirubin 0.80, AST 16, ALT 25, Alkaline Phosphatase 80, Total Protein 6.0 L, Albumin 2.6 L, Globulin 3.4, Albumin/Globulin Ratio 0.8 L Micro: Microbiology 03/22/21 13:50 Wound - Hand Gram Stain - Final 03/22/21 13:50 Wound - Hand Wound Culture - Preliminary Staphylococcus aureus 03/23/21 09:20 Nasal Secretion SARS-CoV-2 Antigen (Rapid) - Final Radiology Impression Hand X-Ray 03/22/21 12:25 IMPRESSION: Flexion deformity at the level of the proximal interphalangeal joints of the fourth and fifth digits. Soft tissue swelling. Electronically Signed: Dagoberto Goyal, (more content not included)... Normal [facility] Extremity Upper WITH Contras ton 03-23-2021 Extremity Upper WITH Contrast [facility] Imaging Services [address] [place] [address] Extremity Upper WITH Contrast MR#: [id number] Acct: [id number] Name: ELIDA PENALOZA Rep #: [id number] : 1955 F 65 From: Deuce Senior PCP: Care Physician,No Primary Status: ADM IN Study: Extremity Upper WITH Contrast Date of Exam: Exam# [id number] Ordering Dr: Danielle Simpson DO STUDY: CT LEFT HAND/WRIST WITH CONTRAST REASON FOR EXAM: Swelling, pain, redness and blistering of left hand. TECHNIQUE: Transaxial CT imaging of the hand/wrist was performed during intravenous administration of 100 mL of ISOVUE-300. Coronal and sagittal images were reformatted. Individualized dose optimization techniques were used for this CT. COMPARISON: Radiographs 03/22/2021. FINDINGS: There is a soft tissue ulceration at the distal aspect of the fourth digit (sagittal reconstruction 23). There is soft tissue swelling mostly at the dorsal aspect of the fourth digit (sagittal reconstructions 22-28; coronal reconstructions 18-33) without peripheral contrast enhancing focal fluid collection to suggest soft tissue abscess. There is no osseous destruction of the phalanges to indicate osteomyelitis. There are no erosive changes of the interphalangeal joints. There is flexion of the second through fifth digits at the proximal interphalangeal joints. There is a cyst in the head of the first metacarpal (sagittal reconstruction 38) measuring 0.8 cm in length. Otherwise, unremarkable metacarpals. Normal metacarpophalangeal joints. Normal carpometacarpal articulations. There is joint space narrowing of the triscaphe articulation (sagittal reconstructions 25, 26). There is a small cyst in the proximal palmar capitate (sagittal reconstruction 21). There is no osseous destruction of the carpal bones or distal radius, distal ulna. CT/Extremity Upper WITH Contrast IMPRESSION: Soft tissue swelling without demonstrated soft tissue abscess or osteomyelitis. Triscaphe arthrosis. Electronically Signed: Deuce Hidalgo MD at 11:13 EST , CC: Dr. Danielle Simpson, DO; No Primary Care Physician Home Planning Consultant Salesperson: Signed Normal [facility] Gram Stainon 03-23-2021 GS Gram Stain 4+ Gram positive cocci 1+ White Blood Cells 2+ Epithelial cells Normal [facility] Comment on above: Performed By: #### M 100.2000, M100.3000 ####[facility] [id number] [facility] [place], [address] CBC W/Diff, Automatedon 02-22 Absolute Lymph 0.44 X10 3/uL Low 0.83-4.51 [facility] Comment on above: Performed By: #### L 300.3900, L503.6005, L300.4310, L100.0100, L500.4050, M200.1000 #### [facility] [address] [place], [address] Absolute Neut 7.2 X10 3/uL Normal 2.0-7.7 [facility] Comment on above: Performed By: #### L 300.3900, L503.6005, L300.4310, L100.0100, L500.4050, M200.1000 #### [facility] [address] [place], [address] Basophils/100 WBC (Bld) 0.5 % Normal 0-1 [facility] Comment on above: Performed By: #### L 300.3900, L503.6005, L300.4310, L100.0100, L500.4050, M200.1000 #### [facility] [address] [place], [address] Eosinophils/100 WBC (Bld) 0.0 % Normal 0-5 [facility] Comment on above: Performed By: #### L 300.3900, L503.6005, L300.4310, L100.0100, L500.4050, M200.1000 #### [facility] [address] [place], [address] Erythrocyte distribution width (RBC) [Ratio] 13.3 % Normal 11.6-14.6 [facility] Comment on above: Performed By: #### L 300.3900, L503.6005, L300.4310, L100.0100, L500.4050, M200.1000 #### [facility] [address] [place], [address] Hematocrit (Bld) [Volume fraction] 33.0 % Low 37-47 [facility] Comment on above: Performed By: #### L 300.3900, L503.6005, L300.4310, L100.0100, L500.4050, M200.1000 #### [facility] [address] [place], [address] Hemoglobin (Bld) [Mass/Vol] 11.5 g/dL Low 12.0-15.0 [facility] Comment on above: Performed By: #### L 300.3900, L503.6005, L300.4310, L100.0100, L500.4050, M200.1000 #### [facility] [address] [place], [address] IG% 0.700 Normal 0.0-0.9 [facility] Comment on above: Result Comment: IG% - Immature Granulocytes (promyelocytes, myelocytes and metamyelocytes) > 1% indicates that a LEFT SHIFT is Present. Performed By: #### L 300.3900, L503.6005, L300.4310, L100.0100, L500.4050, M200.1000 #### [facility] [address] [place], [address] Lymphocytes/100 WBC (Bld) 5.3 % Low 19-41 [facility] Comment on above: Performed By: #### L 300.3900, L503.6005, L300.4310, L100.0100, L500.4050, M200.1000 #### [facility] [address] [place], [address] MCH (RBC) [Entitic mass] 36.9 pg High 27.0-32.0 [facility] Comment on above: Performed By: #### L 300.3900, L503.6005, L300.4310, L100.0100, L500.4050, M200.1000 #### [facility] [address] [place], [address] MCHC (RBC) [Mass/Vol] 34.8 g/dL Normal 32-[address] [facility] Comment on above: Performed By: #### L 300.3900, L503.6005, L300.4310, L100.0100, L500.4050, M200.1000 #### [facility] [address] [place], [address] MCV (RBC) [Entitic vol] 105.8 fL High 81-99 [facility] Comment on above: Performed By: #### L 300.3900, L503.6005, L300.4310, L100.0100, L500.4050, M200.1000 #### [facility] [address] [place], [address] Monocytes/100 WBC (Bld) 7.1 % Normal 0-10 [facility] Comment on above: Performed By: #### L 300.3900, L503.6005, L300.4310, L100.0100, L500.4050, M200.1000 #### [facility] [address] [place], [address] Neutrophils/100 WBC (Bld) 86.4 % High 47-70 [facility] Comment on above: Performed By: #### L 300.3900, L503.6005, L300.4310, L100.0100, L500.4050, M200.1000 #### [facility] [address] [place], [address] Nucleated RBC (Bld) [#/Vol] 0 10*3/uL Normal 0-5 [facility] Comment on above: Performed By: #### L 300.3900, L503.6005, L300.4310, L100.0100, L500.4050, M200.1000 #### [facility] [address] [place], [address] Platelet mean volume (Bld) [Entitic vol] 10.3 fL Normal 6.2-12.0 [facility] Comment on above: Performed By: #### L 300.3900, L503.6005, L300.4310, L100.0100, L500.4050, M200.1000 #### [facility] [address] [place], [address] Platelets (Bld) [#/Vol] 158 10*3/uL Normal 150-450 [facility] Comment on above: Performed By: #### L 300.3900, L503.6005, L300.4310, L100.0100, L500.4050, M200.1000 #### [facility] [address] [place], [address] RBC (Bld) [#/Vol] 3.12 10*6/uL Low 4.2-5.4 [facility] Comment on above: Performed By: #### L 300.3900, L503.6005, L300.4310, L100.0100, L500.4050, M200.1000 #### [facility] [address] [place], [address] RDW SD 51.0 fl High 35.1-43.9 [facility] Comment on above: Performed By: #### L 300.3900, L503.6005, L300.4310, L100.0100, L500.4050, M200.1000 #### [facility] [address] [place], [address] WBC (Bld) [#/Vol] 8.4 10*3/uL Normal 4.4-11.0 [facility] Comment on above: Performed By: #### L 300.3900, L503.6005, L300.4310, L100.0100, L500.4050, M200.1000 #### [facility] [address] [place], [address] Comprehensive Metabolic Prof il 03-22-2021 Albumin [Mass/Vol] 3.1 g/dL Low 3.2-5.0 [facility] Comment on above: Performed By: #### L 300.3900, L503.6005, L300.4310, L100.0100, L500.4050, M200.1000 #### [facility] [address] [place], [address] Albumin/Globulin [Mass ratio] 0.9 {ratio} Normal 0.9-2.4 [facility] Comment on above: Performed By: #### L 300.3900, L503.6005, L300.4310, L100.0100, L500.4050, M200.1000 #### [facility] [address] [place], [address] ALK P 82 U/L Normal 45-117 [facility] Comment on above: Performed By: #### L 300.3900, L503.6005, L300.4310, L100.0100, L500.4050, M200.1000 #### [facility] [address] [place], [address] ALT [Catalytic activity/Vol] 29 U/L Normal 13-56 [facility] Comment on above: Performed By: #### L 300.3900, L503.6005, L300.4310, L100.0100, L500.4050, M200.1000 #### [facility] [address] [place], [address] AST [Catalytic activity/Vol] 16 U/L Normal 15-37 [facility] Comment on above: Performed By: #### L 300.3900, L503.6005, L300.4310, L100.0100, L500.4050, M200.1000 #### [facility] [address] [place], [address] Bilirubin [Mass/Vol] 1.40 mg/dL High 0.20-1.00 [facility] Comment on above: Result Comment: For patients on eltrombopag therapy, use of Dimension [place] TBIL is not recommended. Performed By: #### L 300.3900, L503.6005, L300.4310, L100.0100, L500.4050, M200.1000 #### [facility] [address] [place], [address] BUN/CRE 28.9 RATIO High 10-20 [facility] Comment on above: Performed By: #### L 300.3900, L503.6005, L300.4310, L100.0100, L500.4050, M200.1000 #### [facility] [address] [place], [address] CA,Total 8.5 mg/dL Normal 8.5-10.1 [facility] Comment on above: Performed By: #### L 300.3900, L503.6005, L300.4310, L100.0100, L500.4050, M200.1000 #### [facility] [address] [place], [address] Chloride [Moles/Vol] 101 mmol/L Normal 98-107 [facility] Comment on above: Performed By: #### L 300.3900, L503.6005, L300.4310, L100.0100, L500.4050, M200.1000 #### [facility] [address] [place], [address] CO2 [Moles/Vol] 23.0 mmol/L Normal 21.0-32.0 [facility] Comment on above: Performed By: #### L 300.3900, L503.6005, L300.4310, L100.0100, L500.4050, M200.1000 #### [facility] [address] [place], [address] Creatinine [Mass/Vol] 0.52 mg/dL Low 0.55-1.[address] [facility] Comment on above: Result Comment: The validity of the calculated GFR GFRAA in patients over 70 years has not been determined. Clinical correlation is essential. Performed By: #### L 300.3900, L503.6005, L300.4310, L100.0100, L500.4050, M200.1000 #### [facility] [address] [place], [address] ECRCL 87.58 ml/min Normal [facility] Comment on above: Performed By: #### L 300.3900, L503.6005, L300.4310, L100.0100, L500.4050, M200.1000 #### [facility] [address] [place], [address] EST GFR - AA 153 mL/min Normal >60 [facility] Comment on above: Result Comment: Afri can [place] GFR Calc Performed By: #### L 300.3900, L503.6005, L300.4310, L100.0100, L500.4050, M200.1000 #### [facility] [address] [place], [address] GAP 7 Normal 5-15 [facility] Comment on above: Performed By: #### L 300.3900, L503.6005, L300.4310, L100.0100, L500.4050, M200.1000 #### [facility] [address] [place], [address] GFR/1.73 sq M.predicted among non-blacks MDRD (S/P/Bld) [Vol rate/Area] 127 mL/min/{1.73_m2} Normal >60 [facility] Comment on above: Result Comment: Non- GFR Calc Performed By: #### L 300.3900, L503.6005, L300.4310, L100.0100, L500.4050, M200.1000 #### [facility] [address] [place], [address] Globulin (S) [Mass/Vol] 3.5 g/dL Normal 2.2-4.2 [facility] Comment on above: Performed By: #### L 300.3900, L503.6005, L300.4310, L100.0100, L500.4050, M200.1000 #### [facility] [address] [place], [address] Glucose [Mass/Vol] 128 mg/dL High 74-106 [facility] Comment on above: Result Comment: Fast ing Glucose result greater than or equal to 126 mg/dL suggests DIABETES MELLITUS per A.D.A. criteria. Performed By: #### L 300.3900, L503.6005, L300.4310, L100.0100, L500.4050, M200.1000 #### [facility] [address] [place], [address] Potassium [Moles/Vol] 3.5 mmol/L Normal 3.5-5.[address] [facility] Comment on above: Performed By: #### L 300.3900, L503.6005, L300.4310, L100.0100, L500.4050, M200.1000 #### [facility] [address] [place], [address] Sodium [Moles/Vol] 131 mmol/L Low 136-145 [facility] Comment on above: Performed By: #### L 300.3900, L503.6005, L300.4310, L100.0100, L500.4050, M200.1000 #### [facility] [address] [place], [address] T PROT 6.6 g/dL Normal 6.4-8.2 [facility] Comment on above: Performed By: #### L 300.3900, L503.6005, L300.4310, L100.0100, L500.4050, M200.1000 #### [facility] [address] [place], [address] Urea nitrogen [Mass/Vol] 15 mg/dL Normal 7-18 [facility] Comment on above: Performed By: #### L 300.3900, L503.6005, L300.4310, L100.0100, L500.4050, M200.1000 #### [facility] [address] [place], [address] Emergency Department Summary on 03-22-2021 Emergency Department Summary [facility] Medical Records Department [address] [place] [address] Emergency Department Summary 03/22/21 MR#: [id number] Acct: [id number] Name: ELIDA PENALOZA Rep #: [id number] : 1955 65 From: Mikey Rosas MD PCP: Care Physician,No Primary Status:REG ER Location: ED HPI History of Present Illness Chief Complaint: Wound Informant: patient Onset/Context/Timing Onset: Days (2) Context: Gradual Onset (Spontaneous without injury) Timing: Continuous Quality of Pain: Throbbing Location: Left ring finger into hand and wrist Current Severity: Moderate Maximum Severity: Severe Worsened by: Movement, palpation Relieved by: Remaining still in leaving alone Associated Symptoms Associated Symptoms: Negative for Parasthesia, Weakness and Loss of Funtion Narrative Narrative: Patient is on chemotherapy for breast cancer. She went in for treatment today, her oncologist saw her hand and sent her to the ER out of concern. She states it started at her nail, just some pain and a little sore, she did not pull any skin off or injure her nail in any way, and over 2 days it progressed quickly to the base of her finger and now into her hand and wrist. She denies any fevers or chills, but she is feeling very malaised and worse than usual. [id number] Medical History (Updated 03/22/21 @ 14:[address] Mikey Rosas MD) Breast cancer Home Medications ergocalciferol (vitamin D2) 1,250 mcg PO TH 03/22/21 [History Last Taken 03/18/21] Allergy/AdvReac Type Severity Reaction Status Date / Time No Known Allergies Allergy Verified 03/22/21 12:24 Social History Smoking Status: Light Smoker (<10/day) ROS ROS ED Constitutional Constitutional ED: Reports fatigue and malaise; Denies chills or fever(s) Eyes Eyes: Denies change in vision or diplopia ENT ENT ED: Denies rhinorrhea or sore throat Cardiovascular Cardiovascular: Denies chest pain or palpitations Respiratory/Chest Respiratory/Chest: Denies cough or dyspnea Gastrointestinal Gastrointestinal: Reports diarrhea; Denies abdominal pain, nausea or vomiting Genitourinary Genitourinary ED: Denies dysuria or hematuria Musculoskeletal Musculoskeletal: Denies back pain or neck pain Integumentary Denies abscess or rash Neurologic Neurologic: Denies headache(s), paresthesias or weakness Psychiatric Psychiatric: Denies anxiety or suicidal thoughts EXAM Physical Exam Const Vital Signs: 03/22/21 11:21 Temperature 97.5 F L Temperature Source Temporal Pulse Rate 112 H Respiratory Rate 18 Blood Pressure 141/85 H Blood Pressure Mean 103 Pulse Ox 99 Oxygen Delivery Method Room Air Positive well nourished and well developed General Appearance ED: well developed and NAD HEENT Reports moist mucous membranes normocephalic and atraumatic Eyes PERRL and EOMs intact bilaterally Neck full ROM and supple Resp normal respiratory effort and clear to auscultation bilaterally Cardio regular rate, regular rhythm and no murmurs GI non-tender and non-distended Auscultation: normoactive bowel sounds Palpation: soft Back/Spine no CVA tenderness General Back: other FROM Extremity Extremity Narrative: Extremely swollen left ring finger with bulla formation with some purpura within it, that spirals from the right side of the nail base all the way to the MCPJ, along with erythema that progresses to the dorsum of the hand from the ring finger, and into the wrist. Very limited range of motion of the ring finger which is held in mild flexion and limited range of motion of the wrist due to pain there. Good range of motion of other fingers relatively. General Extremety ED: Yes edema and tenderness; Negative for pulses abnormal General Extremity: edema; Negative for pulses abnormal Neuro oriented x3, CN's II-XII intact bilaterally and no sensory deficits noted Sensorium / Orientation: awake and alert Motor Exam: strength 5/5 throughout Skin no rashes or lesions noted and no wounds Skin Narrative: Very swollen left ring finger, bulla formation with fluid fluctuant within it. Appears to have started as a paronychia radial aspect, patient confirms pain started there. Possible abscess formation. Swelling limits exam. No abscess in hand or wrist, but cellulitis extends to the wrist area without epitrochlear lymphadenopathy. MDM MDM MDM Narrative Medical decision making narrative: The patient does not have eden cellulitis over her left wrist, so she was amenable to an arthrocentesis because she is having such a limited range of motion I wanted to rule out a septic arthritis given the hot hand and wrist. No fluid was able to be obtained. The paronychia was drained, large amount of purulent material. Given the bulla formation, immunocompromise state, a (more content not included)... Normal [facility] H AND P Exam - Hospitaliston 03-22-2021 H&P Exam - Hospitalist [facility] Medical Records Department [address] [place] [address] H P Exam - Hospitalist 03/22/21 0758 MR#: [id number] Acct: [id number] Name: ELIDA PENALOZA Rep #: [id number] : 1955 65 From: Kathy Rubin NP [employer] PCP: Care Physician,No Primary Status:ADM IN [place] [facility] [id number] Documented by User: Kathy Rubin NP, [employer] 03/22/21 16:24 HPI - General General Date of Admission: 03/22/21 HPI Narrative ELIDA PENALOZA, is a 65 F who presents to the emergency room due to left hand wound. Patient states her left ring finger nail bed was sore 2 days ago. No noted injury. Patient states over 2 days her left hand became increasingly red and swollen and is now moving up her arm. She was seen by oncologist who referred her to the emergency room for further evaluation. She is on chemotherapy for breast cancer and states she has 4 treatments left. She denies prior infections or complications related to chemo. She denies fever, chills. She reports left hand pain. Reports general malaise. Denies drainage from left finger or hand. She reports a past medical history of breast cancer, undergoing chemotherapy as well as tobacco dependence. Denies other medical history. PFSH Medical History Breast cancer Port-A-Cath in place Smoker Home Medications ergocalciferol (vitamin D2) 1,250 mcg PO TH 03/22/21 [History Last Taken 03/18/21] Allergy/AdvReac Type Severity Reaction Status Date / Time No Known Allergies Allergy Verified 03/22/21 12:24 Family History (Updated 03/22/21 @ 15:49 by Kathy Rubin NP, [employer]) Mother Cancer Father Cancer Surgical History H/O tubal ligation History of bunionectomy Social History (Updated 03/22/21 @ 16:13 by Kathy Rubin NP, [employer]IL [employer]BER[employer]C) Smoking Status: Current every day smoker tobacco type: cigarettes alcohol intake: never substance use type: does not use ROS Constitutional Constitutional: Reports malaise; Denies change in weight, chills, fatigue, fever(s) or weakness Cardiovascular Cardiovascular: Denies chest pain, edema, lightheadedness, palpitations or syncope Respiratory/Chest Respiratory/Chest: Denies cough, dyspnea, productive cough, shortness of breath at rest, shortness of breath with exertion or wheezing Gastrointestinal Gastrointestinal: Denies abdominal pain, constipation, diarrhea, nausea or vomiting Genitourinary Genitourinary: Denies burning urination, difficulty urinating, dysuria, hematuria, urinary frequency, urinary incontinence or urinary urgency Musculoskeletal Musculoskeletal: Denies back pain, joint pain or muscle weakness Integumentary Integumentary: Reports other Details: Paronychia left ring finger, left hand redness and swelling ; Denies erythema, lesions or rash Neurologic Neurologic: Denies abnormal speech, confusion, dizziness, focal weakness, numbness, paresthesias, seizure-like activity or syncope Psychiatric Psychiatric: Denies anxiety or depression Hematologic/Lymphatic Hematologic/Lymphatic: Denies anemia, easy bleeding or easy bruising Allergic/Immunologic Allergic/Immunologic: Denies hives or asthma Vital Signs Vital Signs Vital Signs: 03/22/21 11:21 03/22/21 13:12 03/22/21 13:13 Temperature 97.5 F L 98.4 F Temperature Source Temporal Temporal Pulse Rate 112 H 106 H Respiratory Rate 18 18 Blood Pressure 141/85 H 148/69 H Blood Pressure Mean 103 95 Pulse Ox 99 99 Oxygen Delivery Method Room Air Room Air Room Air 03/22/21 14:50 Temperature 101.4 F H Temperature Source Temporal Pulse Rate 111 H Respiratory Rate 16 Blood Pressure 137/92 H Blood Pressure Mean 107 Pulse Ox 98 Oxygen Delivery Method Room Air Weight Weight: 112 lb Body Mass Index (BMI) 20.5 Physical Exam Const alert, oriented x3 and no apparent distress Orientation / Consciousness: awake, oriented to person, oriented to place and oriented to time Nutritional Appearance: cachectic HEENT normocephalic and moist oral mucous membranes Eyes PERRL, EOMs intact bilaterally and conjunctivae normal Neck no lymphadenopathy Resp normal respiratory effort and clear to auscultation bilaterally Cardio regular rhythm and no murmurs Rate: tachycardic Peripheral Pulses: pulses 2+ throughout GI normal to inspection, nondistended, normoactive bowel sounds, non-tender and non-distended Extremity normal to inspection Skin Skin Narrative: Left finger paronychia with left hand erythema, warmth and swelling as well as ring finger bulla formation. Lesions: no lesions Rashes: no rashes Trauma: no lacerations or abrasions Neuro CN's II-XII intact bilaterally, no focal motor deficits, no sensory deficits noted and deep tendon r eflexes 2+ bilaterally Psych (more content not included)... Normal [facility] Hand Min 3 Viewson 2 Hand Min 3 Views [facility] Imaging Services [address] [place] [address] Hand Min 3 Views MR#: [id number] Acct: [id number] Name: ELIDA PENALOZA Rep #: [id number] : 1955 F 65 From: Dagoberto arnold MD PCP: Care Physician,No Primary Status: REG ER Study: Hand Min 3 Views Date of Exam: 03/22/21 Exam# [id number] Ordering Dr: Mikey Rosas MD STUDY: X-RAY - LEFT HAND REASON FOR EXAM: Female, 65 years old. Severe pain. Wound overlying the fourth digit with redness and swelling. TECHNIQUE: 3 view(s) of the hand. COMPARISON: None. FINDINGS: Normal radiocarpal articulation. Normal distal radioulnar joint. Normal visualized carpal bones. Normal carpal articulations Normal carpometacarpal articulation of the thumb. Normal second through fifth carpometacarpal joints. Normal metacarpi. Normal metacarpophalangeal joint of the thumb. Normal interphalangeal joint of the thumb. Normal proximal and distal phalanges of the thumb. Normal metacarpophalangeal joints of the second through fifth fingers. Flexion deformity at the proximal interphalangeal joints of the fourth and fifth digits due to severe pain. Normal phalanges of the second through fifth fingers. Soft tissue swelling. RAD/Hand Min 3 Views IMPRESSION: Flexion deformity at the level of the proximal interphalangeal joints of the fourth and fifth digits. Soft tissue swelling. Electronically Signed: Dagoberto Goyal MD at 13:05 EST Reading Location ID and State: [address] [place] [address] , Service support , CC: Dr. 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, [address] Partial Thromboplast Timeon 03-22-2021 aPTT Coag (Bld) [Time] 30.7 s Normal 24.1-36.2 [facility] Comment on above: Performed By: #### L 300.3900, L503.6005, L300.4310, L100.0100, L500.4050, M200.1000 ####[facility] [address] [place], [place], [id number] Prothrombin Time w/INRon INR Coag (PPP) [Relative time] 1.1 {INR} Normal [facility] Comment on above: Performed By: #### L 300.3900, L503.6005, L300.4310, L100.0100, L500.4050, M200.1000 ####[facility] [address] [place], [place], [id number] PT Coag (PPP) [Time] 13.2 s Normal 11.7-14.9 [facility] Comment on above: Performed By: #### L 300.3900, L503.6005, L300.4310, L100.0100, L500.4050, M200.1000 ####[facility] [address] [place], [place], [id number] ANES POSTPROC EVALon 021 ANES POSTPROC EVAL HNO ID: [id number] Author: Isai Weber MD Service: Anesthesiology Author Type: Anesthesiologist Type: Anesthesia Postprocedure Evaluation Filed: 01/18/2021 2:33 PM Note Text: POST ANESTHESIA EVALUATION NOTE : 1955 Procedure Summary Date: 01/18/21 Room / Location: [facility] OR / [facility] OR Anesthesia Start: 1229 Anesthesia Stop: 1331 Procedure: INSERTION CATHETER PORT-A-CATH WITH C-ARM (Pending ) Diagnosis: Malignant neoplasm of female breast, unspecified estrogen receptor status, unspecified laterality, unspecified site of breast (HCC) Surgeons: Stevo Gregory MD Responsible Provider: Mario Oconnor MD Anesthesia Type: MAC ASA Status: 3 Anesthesia Type: MAC Last vitals Vitals Value Taken Time BP 150/80 01/18/21 1415 Temp 36.4 ?C (97.5 ?F) 01/18/21 1335 Pulse 73 01/18/21 1415 Resp 16 01/18/21 1415 SpO2 96 % 01/18/21 1415 Post Anesthesia Patient Status Patient Evaluation: bedside. Anticipated Disposition: phase 2 then home. Neurological Status: aware and responsive. Pulmonary Status: breathing comfortably on room air Airway Control: returned to baseline unsupported. Cardiovascular Status: stable. Pain Management: clinically adequate Postoperative Hydration: acceptable. Intraoperative Events: no significant anesthesia events Post Operative Nausea/Vomiting Status: no significant post operative nausea or vomiting Anesthetic Observations: Recommendation: continue current plan of care. Anesthesia Observations No Documentation SIGNATURE: Isai Weber MD PATIENT NAME: Elida Penaloza DATE: January 18, 2021 TIME: 2:33 PM CSN: [id number] [facility] ANES PRE-OPon 01-18-2021 ANES PRE-OP HNO ID: [id number] Author: Mario Oconnor MD Service: Anesthesiology Author Type: Anesthesiologist Type: Anesthesia Preprocedure Evaluation Filed: 01/18/2021 11:36 AM Note Text: ANESTHESIOLOGY DAY OF SURGERY NOTE : 1955 Procedure(s) (LRB): INSERTION CATHETER PORT-A-CATH WITH C-ARM (Pending) Surgeon(s): Stevo Gregory MD Estimated body mass index is 20.49 kg/m? as calculated from the following: Height as of this encounter: 157.5 cm (5' 2). Weight as of 01/12/21: 50.8 kg (112 lb). 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 Tracheostomy tube not present Mallampati: II. TM distance: >3 FB. Neck ROM: full ROM without neurological symptoms. Mouth opening: adequate. DENTAL Dental findings: poor dentition. Additional exam findings: no II - ANESTHESIA PLAN ASA Score: 3 Anesthetic Plan: MAC NPO Status: adequate Monitoring plan: standard ASA. Postoperative analgesic plan: parenteral or oral opioids and multimodal analgesia. Anesthetic Risks, Benefits, Alternatives, Personnel Discussed. Consent obtained from: patient.Patient / Surrogate agrees to blood products: blood products not planned Significant changes in the patient condition since the History and Physical, not otherwise documented in primary service progress note: no. Vitals Value Taken Time BP 138/74 01/18/21 1013 Pulse 78 01/18/21 1013 Resp 16 01/18/21 1013 Temp 36.3 ?C (97.3 ?F) 01/18/21 1013 SpO2 100 % 01/18/21 1013 Facility-Administered Medications as of 01/18/2021 Medication Dose Route Frequency - lactated ringers iv infusion 5-30 mL/hr INTRAVENOUS CONTINUOUS - ceFAZolin iv piggyback 2 g in D5W (iso-osmotic) 100 mL (ANCEF) 2 g INTRAVENOUS Pre-Op Once Outpatient Medications as of 01/18/2021 Medication Sig - ergocalciferol 50,000 unit capsule (VITAMIN D2, DRISDOL) Take 1 capsule by mouth one time a week. - lidocaine-prilocaine (EMLA) 2.5-2.5 % cream Apply 1 application to affected area as needed. - dexAMETHasone (DECADRON) 4 mg tablet Take 1 tablet by mouth daily with breakfast. X 4 days after chemotherapy - promethazine (PHENERGAN) 25 mg tablet Take 1 tablet by mouth every 4 hours as needed for nausea/vomiting. FOR NAUSEA I have interviewed and examined the patient. I have reviewed the medical record and/or the pre-anesthesia evaluation, pertinent labs, and test results. This contains updated information obtained within 48 hours of Surgery/Procedure. SIGNATURE: Mario Oconnor MD PATIENT NAME: Elida Penaloza DATE: January 18, 2021 TIME: 11:35 AM CSN: [id number] [facility] BRIEF OP NOTon 01-18-2021 BRIEF OP NOT HNO ID: [id number] Author: Stevo Gregory MD Service: General Surgery Author Type: Physician Type: Brief Op Note Filed: 01/18/2021 1:32 PM Note Text: BRIEF OPERATIVE NOTATION FOR SURGICAL PROCEDURE. Elida Penaloza 1955 [id number] female LOG ID: [id number] Surgery/Procedure Date: 01/18/2021 Incision/Procedure Start Time: 12:52 PM Incision Close/Procedure End Time: 1:25 PM Surgeon(s)/Proceduralist (s) and Pyrotechnics Press Tender(s): Surgeon(s) and Role: * Stevo Gregory MD - Primary Nurse Practitioner: Connie Arthur APRN.EMS DRIVER Registered Nurse Photoengraving Machine Operator/Tender: Mine Loyola RN REFERRING PHYSICIAN: Outpatient DEPT: WQ PROVIDER: [facility] POS: [id number] ANESTHESIA: Monitored Anesthesia Care ASA CLASS: 3 - Severe DIAGNOSIS: left breast cancer PROCEDURE: right Subclavian portacath - [id number], Fluoroscopic for vascular access - 70978-849-60 and Remove Portacath - [id number] IVF: 700 EBL: 1 Specimens: port port for identification ADDITIONAL DIAGNOSES: FINDINGS: tip in SVC/RA COMPLICATIONS: None PMHx - PAST MEDICAL HISTORY Diagnosis Date - Breast cancer (HCC) COMORBIDITIES - Current Cancer Therapy Post Op Occurrences - None Wound Classification - Clean Operative note dictated in the dictation system. - [id number] Stevo Gregory MD [facility] HISTORY PHYSICALon HISTORY PHYSICAL HNO ID: [id number] Author: Stevo Gregory MD Service: General Surgery Author Type: Physician Type: HANDP Filed: 01/18/2021 10:27 AM Note Text: HISTORY AND PHYSICAL ? Elida Penaloza 1955 ? ? REFERRING PHYSICIAN: Abiola Rivera MD ? CHIEF COMPLAINT: Consult (new port-a-cath placement) ? HPI: The patient is a 65 year old female with a diagnosis of left-sided breast cancer with positive axillary lymph node. ? The patient had a right subclavian Port-A-Cath placed on November 12, 2020. She also had a left axillary lymph node biopsy formed at that time. Since that time, the patient has noted that her Port-A-Cath is functioned intermittently or not at all with attempts at neoadjuvant chemotherapy infusion. ? Catina is concerned because he understands her procedure took 4 hours at the institution was performed at and she understands her blood pressure was very very high during the procedure. ? Elida is currently scheduled to continue her chemotherapy and needs vascular access for treatment. ? ? ? The patient is being seen by me today at the request of Dr. Rivera for my opinion and advice regarding port revision/replacement. ? ? PAST MEDICAL HISTORY PAST MEDICAL HISTORY Diagnosis Date - Breast cancer (HCC) ? ? ? PAST SURGICAL HISTORY PAST SURGICAL HISTORY Procedure Laterality Date - BREAST BIOPSY HX Left 09/24/2020 - LIGATE FALLOPIAN TUBE ? ? - PAST SURGICAL HISTORY OF ? ? ? Bunions removed from both feet - PORTOCATH PLACEMENT ? CURRENT MEDICATIONS Current Outpatient Medications Medication Sig Dispense Refill - ergocalciferol 50,000 unit capsule (VITAMIN D2, DRISDOL) Take 1 capsule by mouth one time a week. 12 capsule 3 - lidocaine-prilocaine (EMLA) 2.5-2.5 % cream Apply 1 application to affected area as needed. 30 g 2 - dexAMETHasone (DECADRON) 4 mg tablet Take 1 tablet by mouth daily with breakfast. X 4 days after chemotherapy 4 tablet 3 - promethazine (PHENERGAN) 25 mg tablet Take 1 tablet by mouth every 4 hours as needed for nausea/vomiting. FOR NAUSEA 30 tablet 2 - OLANZapine (ZYPREXA) 5 mg tablet Take 1 tablet by mouth at bedtime as needed (nausea after chemotherapy). 20 tablet 0 ? Current Facility-Administered Medications Medication Dose Route Frequency Provider Last Rate Last Admin - perflutren lipid microspheres 1.3 mL in NaCl (PF) 0.9% 10 mL injection (DEFINITY) INTRAVENOUS DIRECTED PRN Abiola Rivera MD - sodium chloride 0.9 % (flush) 10 mL (BD POSIFLUSH) 10 mL INTRAVENOUS DIRECTED PRN Abiola Rivera MD ? ? ALLERGIES: Patient has no known allergies. ? PERSONAL HISTORY: SOCIAL HISTORY Social History ? Tobacco Use - Smoking status: Light Tobacco Smoker ? ? Packs/day: 1.00 ? ? Years: 40.00 ? ? Pack years: 40.00 ? ? Types: Cigarettes ? ? Last attempt to quit: 11/20/2020 ? ? Years since quittin.1 - Smokeless tobacco: Never Used - Tobacco comment: smokes half a cig before each meal Vaping Use - Vaping Use: Never used Substance Use Topics - Alcohol use: Yes ? ? Comment: rarely - Drug use: Not on file ? FAMILY HISTORY: FAMILY HISTORY FAMILY HISTORY Problem Relation Age of Onset - Breast Cancer Mother ? - Melanoma Father ? - Melanoma Brother ? ? ? REVIEW OF SYMPTOMS: The review of systems data was entered by the nurse and reviewed by me ? Nursing Notes: Guera Howard 01/07/2021 10:45 AM Signed REVIEW OF SYSTEMS: General: The patient denies fatigue, denies weight loss, denies weight gain, denies feeling hot, and denies feelings of cold. Eyes: The patient denies glaucoma, denies eye injury/surgery, does not wear glasses or contacts. Ear/Nose/Throat: The patient denies allergies, denies hayfever, denies ear infections, and denies bloody noses. Cardiovascular: The patient denies chest pain, denies heart disease, denies high blood pressure,denies cardiac stent, denies prior heart attack, denies irregular heart beat, denies high cholesterol, denies poor circulation, denies heart failure, other cardiac issues, denies claudication, denies cold feet, denies peripheral arterial stent. Respiratory: The patient denies tuberculosis, denies pneumonia, denies frequent cough, denies pulmonary embolism, denies shortness of breath, and denies coughing up blood. Gastrointestinal: The patient denies difficulty swallowing, denies acid reflux, denies ulcers, denies vomiting, denies jaundice/hepatitis, denies gallbladder problems, denies black or tarry stools, denies hemorrhoids, denies bleeding from rectum, denies diverticulitis, denies constipation, denies diarrhea, denies loss of stool control, and denies hernias. Kidney/Bladder: The patient denies kidney stones, denies urine infections, and denies bloody urine. Skin: The patient denies a history of skin cancer, denies bleeding/changing moles, and denies a history of skin rash. Neurologic: The pa (more content not included)... Normal [facility] OPERATIVE NOon 01-18-2021 OPERATIVE NO HNO ID: [id number] Author: Stevo Gregory MD Service: General Surgery Author Type: Physician Type: Operative Report Filed: 01/18/2021 4:51 PM Note Text: [facility] - Operative Report ELIDA PENALOZA : 1955 AGE: 65. SEX: F PATIENT TYPE: A HOSP SVC: GEN LOCATION: [facility] ATTENDING PHYSICIAN: Stevo Gregory M.D. CSN NUMBER: [id number] DATE OF SURGERY/PROCEDURE: 01/18/2021 INCISION/PROCEDURE START TIME: 12:52 p.m. INCISION CLOSE/PROCEDURE END TIME: 1:25 p.m. PREOPERATIVE DIAGNOSIS: Left breast cancer, malfunctioning right subclavian Port-A- Cath. POSTOPERATIVE DIAGNOSIS: Left breast cancer, successful revision with replacement of right subclavian Port-A-Cath over a guidewire. SURGEON: Stevo Gregory M.D. [employer] COUNSELOR: Connie Arthur CNP. SURGERY/PROCEDURE: Removal of right subclavian Port-A-Cath, replacement of right subclavian Port-A-Cath over guidewire using fluoroscopy through new site. ANESTHESIA: Local MAC. LOGIN ID: [id number]. ANESTHESIOLOGIST: Dr. Mario Oconnor. ASA: 3. INTRAVENOUS FLUIDS: 700 mL. ESTIMATED BLOOD LOSS: 1 mL. SPECIMEN: Prior port for identification. Replaced port was a Bard PowerPort, reference #[id number]. Reference #[id number], use by 01/19/2022. FINDINGS: The tip of the catheter in the SVC-RA. DRAINS: None. COMPLICATIONS: None. DISPOSITION: Patient taken to PACU in stable condition. DESCRIPTION OF PROCEDURE: The patient's right side was marked as the planned surgical site. Sign-in was performed verifying patient, site, procedure, position, critical nursing information, VTE, and antibiotic prophylaxis. The patient received 2 g of Ancef and had sequential pressure devices placed. Following IV sedation, the right neck and chest were prepped and draped in usual fashion. Time-out was performed verifying patient, site, procedure, position. Local anesthetic was injected at the previous port insertion site, which was actually very close to the nipple-areolar complex. Incision was made. Dissection was carried down to the port. Pocket was entered. There was a single suture that was for securing the port at the lower aspect. This was removed. The port was able to be easily withdrawn from the site. At this point, local anesthetic was injected at the planned skin site for the new port placement up approximately 5 cm below the edge of the collar bone. This dissection was carried through that incision. The previous catheter was identified and dissected free. At this point, the catheter was then cut from the port, brought up through the upper incision. Next, under fluoroscopic control, a guidewire was inserted through the catheter and the catheter was removed over the wire. Next, under fluoroscopic control, introducer sheath and dilator inserted over the wire. The wire and dilator were removed. At this point, a new catheter was fed through the introducer sheath to the SVC-RA region. There was a scant amount of ectopy. The catheter was withdrawn slightly. The introducer sheath was removed. There was good return of venous blood and inflow of saline through the system. The catheter was cut to length, affixed to the port with a locking ring and secured to the pocket with two 2-0 Prolene sutures. There was good return of venous blood and flow of saline through the system. Fluoroscopy demonstrated good position of the system. Subcutaneous tissue closed with interrupted 3-0 Vicryl sutures. Skin was closed with 4-0 and 5-0 running Monocryl subcuticular suture. Steri-Strips were applied. The port was again accessed. Good return of venous blood, inflow of saline, flushed with 4 mL of 100 units/mL heparin. Steri-Strips applied on the lower prior port site and a silver dressing on the new port site. The patient tolerated procedure well and was taken to recovery with plans for postprocedure chest x-ray. Connie Arthur was my assistant paralegal. She assisted in visualization and retraction for removal of the previous port. There were no surgeons or qualified residents available. Stevo Gregory M.D. CAIN:[id number] /[id number] Normal [facility] SURGICAL PATHOLOGYon 021 SURGICAL PATHOLOGY Specimen originated from [facility] Specimen #: [id number] Submitting Physician: Stevo Gregory M.D. __ FINAL DIAGNOSIS Unspecified site, device removal - Mediport (gross examination only). 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 Received fresh labeled mediport is a port measuring 3.5 x 2.8 x 1.3 cm. The following inscription is noted Bard 0937 CT. No tissue is present or submitted. This case is reviewed with Dr. Abbasi. Gross examination only. RSA/tg 01/19/2021 Gross examination performed at [facility], [address] [place] [address] Date of Report: 01/20/2021 Date of Procedure: 01/18/2021 Date of Receipt: 01/18/2021 Submitted by: Stevo Gregory M.D. Location: [facility] Diagnostic interpretation performed at [facility], [address] [place] [address]. CLIA Number: [id number] [facility] XR CHEST 1V FRONTAL PORTon 1 03-20-2020 XR CHEST 1V FRONTAL PORT * * *Final Report* * * DATE OF EXAM: Jan 18 2021 1:51PM MDX [id number] - XR CHEST 1V FRONTAL PORT / PROCEDURE REASON: Evaluate tube, line or lead position * * * * Physician Interpretation * * * * EXAMINATION: CHEST RADIOGRAPH (PORTABLE SINGLE VIEW AP) Exam Date/Time: 01/18/2021 1:51 PM CLINICAL HISTORY: Evaluate tube, line or lead position MQ: XCPR_5 Comparison: 12/03/2020 RESULT: Lines, tubes, and devices: Right-sided Port-A-Cath. Lungs and pleura: No confluent infiltrate, effusion, or pneumothorax identified. Cardiomediastinal silhouette: Cardiac and mediastinal silhouettes are within normal limits. Atherosclerotic calcifications involving the aortic arch. Other: . IMPRESSION: No acute cardiopulmonary disease identified. Home Planning Consultant Salesperson: [facility] Transcribe Date/Time: Jan 18 2021 1:56P Dictated by : ADDIE GROSS MD This examination was interpreted and the report reviewed and electronically signed by: ADDIE GROSS MD on Jan 18 2021 1:58PM EST [id number] [facility] XR FLUOROSCOPYon 01-18-2021 XR FLUOROSCOPY * * *Final Report* * * DATE OF EXAM: Jan 18 2021 1:28PM MDR [id number] - XR FLUOROSCOPY / PROCEDURE REASON: PORT PLACEMENT * * * * Physician Interpretation * * * * TECHNIQUE: XR FLUOROSCOPY COMPARISON: No prior study for comparison. TECHNIQUE: Limited fluoroscopic imaging from a right-sided chest port placement. CLINICAL INDICATION: PORT PLACEMENT Fluoroscopic Radiation Summary: Plane A, Air Kerma: 8.4 mGy Dose Area Product (DAP): 0.0 mGy*cm^2 Fluoro time: 1:22 min:sec IMAGE NUMBER: 2 RESULT: Placement of a right-sided Port-A-Cath. Line from the Port-A-Cath appears to extend to the cavoatrial junction. IMPRESSION: 1. As above. Home Planning Consultant Salesperson: [facility] Transcribe Date/Time: Jan 18 2021 1:32P Dictated by : ADDIE GROSS MD This examination was interpreted and the report reviewed and electronically signed by: ADDIE GROSS MD on Jan 18 2021 1:33PM EST [id number] [facility] CNPNon 01-13-2021 [facility] Telephone (PREANME) -------- ELIDA PENALOZA ([id number]) 1955 F Date Time Provider Department 01/13/21 [facility] PROVIDER PREANME During your visit today, we recorded the following information about you: Allergies As of Date: 01/13/2021 (No Known Allergies) Date Reviewed: 01/12/2021 Reviewed by: Marlene Mclain MA - Fully Assessed Reason for Visit: Preparations For Surgery [898] Prescriptions as of 01/13/2021 - MELATONIN ORAL Take 1 tablet by mouth at bedtime as needed. - ergocalciferol 50,000 unit capsule (VITAMIN D2, DRISDOL) Take 1 capsule by mouth one time a week. - lidocaine-prilocaine (EMLA) 2.5-2.5 % cream Apply 1 application to affected area as needed. - dexAMETHasone (DECADRON) 4 mg tablet Take 1 tablet by mouth daily with breakfast. X 4 days after chemotherapy - promethazine (PHENERGAN) 25 mg tablet Take 1 tablet by mouth every 4 hours as needed for nausea/vomiting. 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 RECORD# NUMBER DATE DATE TYPE REMY [id number] F 65 11/12/20 11/12/20 2 ELIDA Chen [id number] ROOM: [facility] DATE OF : 1955 DICTATING PHYSICIAN: Tammie De La Torre DATE OF SURGERY: November 12, 2020 SURGEON: Tammie De La Torre MD [employer] COUNSELOR: NENA Marmolejo ANESTHESIOLOGIST: ANESTHETIC: General endotracheal with 1% lidocaine and 0.5% Marcaine without epinephrine locally. PREOPERATIVE DIAGNOSIS: (1) Multifocal left breast ductal carcinoma. (2) Left axillary lymphadenopathy. POSTOPERATIVE DIAGNOSIS: (1) Multifocal left breast ductal carcinoma. (2) Left axillary lymphadenopathy. OPERATION PERFORMED: (1) Right subclavian vein Port-A-Cath placement. (2) Left axilla excisional lymph node biopsy. COMPLICATIONS: None. ESTIMATED BLOOD LOSS: Minimal. DRAINS: None. SPECIMEN: Left axillary lymph nodes. SIGNIFICANT FINDINGS: Right subclavian vein Port-A-Cath was placed using Seldinger technique. The catheter was easily aspirated and effused following placement. Postoperative chest x-ray was obtained in the PACU and demonstrated good Port-A-Cath placement at the superior vena cava-atrial junction, and the catheter remained smooth without any bends or kinks. Two large lymph nodes were removed from the left axilla intact. A vascular clip was placed within the biopsy cavity. DISPOSITION: Home. Diet: Regular. Activity: Regular. Medications: The patient was Page 1 of 3 ELIDA PENALOZA Operative Report ELIDA PENALOZA : 1955 given Percocet as needed for pain and Colace as needed for constipation and instructed to resume all previous home medications. Work: The patient was given a one-week absence from work and may return thereafter with no restrictions. Follow up in Dr. De La Torre's clinic in 2 weeks to review pathology. The patient was instructed that she and her doctor may begin to use the Port-A-Cath as intended immediately. DESCRIPTION OF OPERATION: Following the initiation of general endotracheal anesthesia and placement of a shoulder bump between the shoulder blades parallel to the axis of the spine, the patient was sterilely prepped and draped in the usual sterile supine position. The procedure was begun with placement of the Port-A-Cath. The right subclavian vein was chosen, as the patient will most likely get neoadjuvant chemotherapy and radiation to her left chest. The insertion site on the right chest was anesthetized with 1% lidocaine and 0.5% Marcaine without epinephrine locally. The proposed incision for the pocket to contain the port was also anesthetized with 1% lidocaine and 0.5% Marcaine without epinephrine locally. The right subclavian vein was accessed with the finder needle, and a guidewire was placed through the finder needle. There was a brief episode of ectopy which resolved once the wire was pulled back approximately 1 cm. Intraoperative fluoroscopy was then utilized to confirm the guidewire within the superior vena cava. It should be noted that the patient was in Trendelenburg for this part of the procedure. Once we had successful placement of the wire, the patient was returned to a neutral position, and establishment of the chest pocket for the port was begun. The incision on the right chest was initiated using a 15 blade scalpel. Electrocautery was used to complete the incision and dissect down to the level of the pectoral fascia. A finger was used for blunt dissection to create a pocket just superior to the pectoral fascia on the right chest. Following the creation of the pocket, the patient was returned to a Trendelenburg position. The catheter was inserted over the guidewire using Seldinger technique. Once the catheter was in place and the wire was removed, the patient was returned to a neutral position. Intraoperative fluoroscopy was used to confirm that the catheter was in the superior vena cava at the atrial junction. The catheter was tunneled in the subcutaneous tissue and brought out through the pocket on the right chest. The Port-A-Cath was then attached to the catheter, and the Port-A-Cath was anchored at 3 spots to the pectoral fascia using 3-0 Prolene suture. The port was then accessed with a Rosario needle. The port was easily aspirated, and then infusion was easily performed as well. It should be noted that the catheter was infused and hep-locked with a heparin solution containing 50 units/mL. The deep soft tissue was reapproximated using interrupted 3-0 Vicryl sutures. The dermis was reapproximated using interrupted 4-0 Vicryl sutures, and the skin incision was repaired using a running 5-0 Monocryl. The insertion site inferior to the clavicle was closed with interrupted 5-0 Monocryl suture. Fluoroscopy was again brought in, and the catheter and port were visualized. The port was in good position. The catheter traveled withou (more content not included)... Normal [facility] HEP B SURFACE AG [CCL]on Hepatitis B Surf. Ag Negative Normal NEGAT [facility] Comment on above: Result Comment: [facility] [address] [place] [address] Javier Pryor III, M.D. [id number] Performed By: #### 2 18581 ####[facility],[address] [place] [address] HEPATITIS C AB IA W/CONFIRM [CCL]on 11-17-2020 Hepatitis C Ab IA Negative Normal NEGAT [facility] Comment on above: Result Comment: [facility] [address] [place] [address] Javier Pryor III, M.D. [id number] Performed By: #### 2 03019 #### [facility],[address] [place] [address]284 C-ARM USAGE 1 HOURon C-ARM USAGE 1 HOUR [place] [address] Patient: ELIDA PENALOZA Phone#: : 1955 Age: 65 Gender: F Pt. Type: Out Account: [id number] Location: [facility] Ordering: TAMMIE DE LA TORRE Exam Date: 11/12/2020/9:26 Family Phys: Charge Code: [id number] Physician: [place] Order #: [id number] DLP Dose#: PROCEDURE: C-ARM USEAGE 1 HR COMPARISON: None. INDICATIONS: Port Placement. TOTAL DOSE: 22.74 mGy Time: 125.9 seconds FINDINGS: IMAGES: 11 intraoperative spot images of the right upper thorax SOFT TISSUES: Intraoperative spot images demonstrate placement of a catheter wire followed by subsequent placement of a central catheter and port. OTHER: Negative. CONCLUSION: 1. Intraoperative spot images for port placement. Dictated by: Natalya Rehman MD on 11/12/2020 at 11:02 Approved by: Natalya Rehman MD on 11/12/2020 at 11:04 Normal [facility] CHEST 1 VIEWon 11-12-2020 CHEST 1 VIEW [place] [address] Patient: ELIDA PENALOZA Phone#: : 1955 Age: 65 Gender: F Pt. Type: Out Account: [id number] Location: 062 Ordering: TAMMIE DE LA TORRE Exam Date: 11/12/2020/11:25 Family Phys: Charge Code: [id number] Physician: [place] Order #: [id number] DLP Dose#: This report includes an Addendum and supersedes previous reports for this exam. PROCEDURE: X-RAY CHEST 1 VIEW COMPARISON: None. INDICATIONS: Port Placement. FINDINGS: LUNGS: Normal. No significant pulmonary parenchymal abnormalities. VASCULATURE: Normal. Unremarkable pulmonary vasculature. CARDIAC: Normal. No cardiac silhouette abnormality or cardiomegaly. MEDIASTINUM: Normal. No visible mass or adenopathy. PLEURA: Normal. No effusion or pleural thickening. No pneumothorax BONES: Normal. No fracture or visible bony lesion. OTHER: Right chest wall medication port, the tip terminates at the cavoatrial junction. Monitoring leads project across the thorax. CONCLUSION: 1. Placement of right chest medication port. No pneumothorax identified. Dictated by: Natalya Rehman MD on 11/12/2020 at 11:47 Approved by: Natalya Rehman MD on 11/12/2020 at 11:48 ADDENDUM: Surgical clips seen in the left axilla. Postoperative air seen in the left axilla following lymph node resection. Dictated by: Natalya Rehman MD on 11/12/2020 at 12:01 Continued Report - Page 2 of 2 Patient: ELIDA PENALOZA Phone#: : 1955 Age: 65 Gender: F Pt. Type: Out Account: [id number] Location: 062 Ordering: TAMMIE DE LA TORRE Exam Date: 11/12/2020/11:25 Family Phys: Charge Code: [id number] Physician: [place] Order #: [id number] DLP Dose#: Approved by: Natalya Rehman MD on 11/12/2020 at 12:01 [facility] RAPID HIV ANTIBODY TESTon External Ctrl done? YES Normal [facility] Comment on above: Result Comment: Clin ica data has not been collected to demonstrate the performance of the [employer] Rapid HIV-1/2 Antibody test in persons less than 12 years of age. Performed By: #### 2 38574 #### [facility],[address] [place] [address] HIV AB Non-Reactive Normal [facility] Comment on above: Performed By: #### 2 53725 #### [facility],[address] [place] [address] INTERNAL CONTROL PASS Normal [facility] Comment on above: Performed By: #### 2 51470 #### [facility],[address] [place], [place] [id number] MR BREAST BILATERAL W/WO CON TRASTon 11-02-2020 MR BREAST BILATERAL W/WO CONTRAST [place] [address] Patient: ELIDA PENALOZA Phone#: : 1955 Age: 65 Gender: F Pt. Type: Out Account: [id number] Location: [facility] Ordering: TAMMIE DE LA TORRE Exam Date: 11/02/2020/12:53 Family Phys: ABIOLA RIVERA Charge Code: [id number] Physician: [place] Order #: [id number] DLP Dose#: PROCEDURE: MRI BREAST BILAT WITH AND WITHOUT CONTRAST COMPARISON: [facility], US, BREAST BIOPSY LT CORE, 09/24/2020, 8:15. [facility], , 3D BILAT DIAGNOSTIC, 09/04/2020, 10:04. INDICATIONS: Breast cancer TECHNIQUE: Breast MRI was performed before and after using dynamic intravenous gadolinium infusion, thin sections, and a dedicated breast coil. ENHANCEMENT PATTERN: Mild, with 25-50% of glandular tissue demonstrating enhancement. FINDINGS: DIAGNOSTIC CATEGORY 5--HIGHLY SUGGESTIVE OF MALIGNANCY. HIGH PROBABILITY OF MALIGNANCY BASED ON THE FOLLOWING: RIGHT BREAST: No significant suspicious finding. LEFT BREAST: In the 9 o'clock position of the breast is a 17 x 11 by 13 millimeter irregularly- shaped mildly heterogeneous mass. Following contrast there is rim enhancement. Appearance is highly suspicious for malignant process. Grouping of left axillary lymph nodes with abnormal signal are present suspicious for malignant adenopathy. There is a 4 millimeter subareolar focus of abnormal signal suspicious for satellite lesion. The focus however is too small to characterize with certainty. There does appear to be enhancement. A 5 millimeter focus of abnormal signal is present inferior and lateral to the primary lesion and is also too small to characterize with certainty. However satellite lesion should be considered. RECOMMENDATIONS: SURGICAL CONSULTATION. PLEASE NOTE: A NORMAL MRI DOES NOT EXCLUDE THE POSSIBILITY OF BREAST CANCER. A CLINICALLY SUSPICIOUS PALPABLE LUMP SHOULD BE BIOPSIED. [address] [address] Patient: ELIDA PENALOZA Phone#: : 1955 Age: 65 Gender: F Pt. Type: Out Account: [id number] Location: 062 Ordering: TAMMIE ROBERT Exam Date: 11/02/2020/12:53 Family Phys: ABIOLA RIVERA Charge Code: [id number] Physician: [place] Order #: [id number] DLP Dose#: Dictated by: Yesy Shukla MD on 11/02/2020 at 17:40 Approved by: Yesy Shukla MD on 11/02/2020 at 19:45 Normal [facility] CT CHEST/ABD/PELVIS C+on CT CHEST/ABD/PELVIS C+ [address] [address] Patient: ELIDA PENALOZA Phone#: : 1955 Age: 65 Gender: F Pt. Type: Out Account: [id number] Location: 062 Ordering: TAMMIE ROBERT Exam Date: 10/08/2020/9:19 Family Phys: Charge Code: [id number] Physician: [place] Order #: [id number] DLP Dose#: 13.0mGy PROCEDURE: CT CHEST/ABD/PELVIS W COMPARISON: None. INDICATIONS: Breast cancer. TECHNIQUE: After obtaining the patient's consent, CT images were obtained with oral contrast and intravenous contrast material. All CT scans at this facility use dose modulation, iterative reconstruction, and/or weight based dosing when appropriate to reduce radiation dose to as low as reasonably achievable. IV CONTRAST: Omnipaque 350,80ml CHEST DOSE: 3.6 CTDIvol(mGy) ABDOMEN DOSE: 9.4 CTDIvol(mGy) FINDINGS: LUNGS: Normal. No visible pulmonary disease. VASCULATURE: Normal. No visible pulmonary arterial thrombus or attenuation. CHELA: Normal. No mass or adenopathy. MEDIASTINUM: Normal. No mass or adenopathy. CARDIAC: Normal. No enlargement, pericardial thickening, or significant calcification. PLEURA: Normal. No mass or effusion. CHEST WALL: Spiculated 15 millimeter mass is present deep in the left breast. There is a prominent left axillary lymph node. LIVER: Normal. No enlargement, atrophy, abnormal density, or significant focal lesion. BILIARY: Normal. No visible dilatation or calcification. PANCREAS: Normal. No lesion, fluid collection, ductal dilatation, or atrophy. SPLEEN: Normal. No enlargement or focal lesion. KIDNEYS: Normal. No mass, obstruction, or calcification. ADRENALS: Normal. No mass or enlargement. Continued Report - Page 2 of 2 Patient: ELIDA PENALOZA Phone#: : 1955 Age: 65 Gender: F Pt. Type: Out Account: [id number] Location: 062 Ordering: TAMMIE DE LA TORRE Exam Date: 10/08/2020/9:19 Family Phys: Charge Code: [id number] Physician: [place] Order #: [id number] DLP Dose#: 13.0mGy AORTA/VASCULAR: Calcification of the thoracic aorta is present. No aneurysm or dissection. RETROPERITONEUM: Normal. No mass or adenopathy. BOWEL/MESENTERY: Moderate to large volume stool retention is present. Multiple diverticula are present without inflammatory change. ABDOMINAL WALL: Normal. No mass or hernia. URINARY BLADDER: Normal. No visible focal wall thickening, lesion, or calculus. PELVIC NODES: Normal. No adenopathy. PELVIC ORGANS: A 3.5 centimeter probable fibroid is present to the right of the uterine body. BONES: Mild degenerative changes of the spine are present. There is calcification at the L4-5 disc space. OTHER: Negative. CONCLUSION: 1. Moderate to large volume stool retention. Diverticulosis. 2. Probable 3.5 centimeter uterine fibroid. 3. Spiculated mass deep in the left breast. There is a prominent left axillary lymph node. Dictated by: Yesy Shukla MD on 10/08/2020 at 17:55 Approved by: Yesy Shukla MD on 10/08/2020 at 18:20 Normal [facility] CBC + DIFFon 10-07-2020 Baso # 0.10 x10EE3/UL Normal 0.00 - 0.10 [facility] Comment on above: Performed By: #### 2 76770 ####[facility],[address] [place] [address]72 Basophils/100 WBC (Bld) 1.3 % Normal 0.0 - 2.0 [facility] Comment on above: Performed By: #### 2 48654 ####[facility],[address] [place] [address]97 CBC + DIFF Normal [facility] Comment on above: Result Comment: CBC- COMPLETE BLOOD COUNT Performed By: #### 2 67555 ####[facility],[address] [place] [address] EO # 0.30 x10EE3/UL Normal 0.00 - 0.50 [facility] Comment on above: Performed By: #### 2 72276 ####[address] [address] Eosinophils/100 WBC (Bld) 3.4 % Normal 0.0 - 7.0 [facility] Comment on above: Performed By: #### 2 09780 ####[address] [address] Erythrocyte distribution width (RBC) [Ratio] 12.9 % Normal 12.0 - 15.6 [facility] Comment on above: Performed By: #### 2 44645 ####[facility],[address] [place] [address] Hematocrit (Bld) [Volume fraction] 42.0 % Normal 34.0 - 46.0 [facility] Comment on above: Performed By: #### 2 34148 ####[facility],[address] [place] [address] Hemoglobin (Bld) [Mass/Vol] 14.4 g/dL Normal 12.0 - 16.0 [facility] Comment on above: Performed By: #### 2 12332 ####[facility],[address] [place] [address] Lymph # 2.90 x10EE3/UL High 0.80 - 2.80 [facility] Comment on above: Performed By: #### 2 81422 ####[facility],[address] [place] [address] Lymphocytes/100 WBC (Bld) 36.3 % Normal 20.0 - 45.0 [facility] Comment on above: Performed By: #### 2 92795 ####[facility],[address] [place], [place] [address] MANUAL DIFF N/A Normal [facility] Comment on above: Performed By: #### 2 63165 ####[facility],[address] [place], [place] [address] MCH (RBC) [Entitic mass] 32 pg Normal 27 - 33 [facility] Comment on above: Performed By: #### 2 93429 ####[facility],[address] [place], [place] [address] MCHC 34 X10 3 Normal 32 - 36 [facility] Comment on above: Performed By: #### 2 59229 ####[facility],[address] [place], [place] [address] MCV (RBC) [Entitic vol] 93 fL Normal 80 - 99 [facility] Comment on above: Performed By: #### 2 25682 ####[facility],[address] [place] [address] [place] # 0.50 x10EE3/UL Normal 0.20 - 1.00 [facility] Comment on above: Performed By: #### 2 29250 ####[facility],[address] [place], [place] [address] MONOS % 6.9 % Normal 0.0 - 10.0 [facility] Comment on above: Performed By: #### 2 91260 ####[facility],[address] [place] [address] Morphology Boyd (Bld) [Interp] N/A Normal [facility] Comment on above: Result Comment: {CD] Performed By: #### 2 32586 ####[facility],[address] [place] [address] Neut # 4.10 x10EE3/UL Normal 1.50 - 7.10 [facility] Comment on above: Performed By: #### 2 27627 ####[facility],[address] [place] [address] Neutrophils/100 WBC (Bld) 52.1 % Normal 46.0 - 76.0 [facility] Comment on above: Performed By: #### 2 06106 ####[facility],[address] [place] [address] PLATELET 217 x10EE3/UL Normal 150 - 450 [facility] Comment on above: Performed By: #### 2 08751 ####[facility],[address] [place] [address] Platelet mean volume (Bld) [Entitic vol] 7.6 fL Normal 6.6 - 10.5 [facility] Comment on above: Result Comment: AUTO MATED DIFFERENTIAL Performed By: #### 2 51595 ####[facility],[address],[place] [address] RBC 4.52 x 10EE6/UL Normal 4.10 - 5.30 [facility] Comment on above: Performed By: #### 2 57500 ####[facility],[address] [place] [address] WBC 7.9 x 10EE3/UL Normal 4.5 - 10.8 [facility] Comment on above: Performed By: #### 2 88904 ####[facility],[address] [place], [place] [address] CMP with eGFRon 10-07-2020 AGE 65 years Normal [facility] Comment on above: Performed By: #### 2 59223 #### [facility],[address] [place] [address] 73271 Albumin [Mass/Vol] 3.5 g/dL Normal 3.4 - 5.0 [facility] Comment on above: Performed By: #### 2 59399 #### [facility],[address] [place], [place] [address] Albumin/Globulin [Mass ratio] 0.9 {ratio} Normal 0.9 - 1.6 [facility] Comment on above: Performed By: #### 2 95380 #### [facility],[address] [place] [address]34 ALK PHOS 84 U/L Normal 46 - 116 [facility] Comment on above: Performed By: #### 2 82700 #### [facility],[address] [place] [address] 77460 ALT [Catalytic activity/Vol] 26 U/L Normal 14 - 59 [facility] Comment on above: Performed By: #### 2 36016 #### [facility],[address] [place] [address]77 Anion gap [Moles/Vol] 15 mmol/L Normal 10 - 20 [facility] Comment on above: Performed By: #### 2 08527 #### [facility],[address] [place] [address] 23107 AST [Catalytic activity/Vol] 14 U/L Normal 13 - 39 [facility] Comment on above: Performed By: #### 2 68511 #### [facility],[address] [place] [address] B/C RATIO 30 ratio Normal 0 - 30 [facility] Comment on above: Performed By: #### 2 29626 #### [facility],[address] [place] [address]648 Bilirubin [Mass/Vol] 0.4 mg/dL Normal 0.2 - 1.0 [facility] Comment on above: Performed By: #### 2 43748 #### [facility],[address] [place] [address] 89874 Calcium [Mass/Vol] 8.8 mg/dL Normal 8.5 - 10.1 [facility] Comment on above: Performed By: #### 2 24617 #### [facility],[address] [place] [address] 66694 Chloride [Moles/Vol] 103 mmol/L Normal 98 - 107 [facility] Comment on above: Performed By: #### 2 77019 #### [facility],[address] [place] [address]93 CMP with eGFR Normal [facility] Comment on above: Result Comment: COMP REHENSIVE METABOLIC PANEL Performed By: #### 2 37694 #### [facility],[address] [place] [address]0434 CO2 [Moles/Vol] 26.3 mmol/L Normal 21.0 - 32.0 [facility] Comment on above: Performed By: #### 2 74343 #### [facility],[address] [place] [address] 33338 Creatinine [Mass/Vol] 0.71 mg/dL Normal 0.55 - 1.02 [facility] Comment on above: Performed By: #### 2 53425 #### [facility],[address] [place] [address]277 GFR/1.73 sq M.predicted among non-blacks MDRD (S/P/Bld) [Vol rate/Area] mL/min/{1.73_m2} Normal 60 - 999 [facility] Comment on above: Performed By: #### 2 19909 #### [facility],[address] [place] [address] Result Comment: ACCO RDING TO THE NATIONAL KIDNEY DISEASE EDUCATION PROGRAM(NKDE), A NORMAL eGFR IS A VALUE GREATER THAN OR EQUAL TO 60 ML/MIN/1.73 SQ METERS. CHRONIC KIDNEY DISEASE: <60mL/MIN/1.73 SQ METERS KIDNEY FAILURE: <15mL/MIN/1.73 SQ METERS THIS TEST SHOULD ONLY BE USED FOR PATIENTS 18 YEARS OF AGE AND OLDER. Globulin (S) [Mass/Vol] 3.8 g/dL Normal 1.5 - 3.8 [facility] Comment on above: Performed By: #### 2 47851 #### [facility],[address] [place] [address]54 Glucose [Mass/Vol] 97 mg/dL Normal 74 - 106 [facility] Comment on above: Performed By: #### 2 81753 #### [facility],[address] [place] [address]324 Potassium [Moles/Vol] 3.8 mmol/L Normal 3.5 - 5.1 [facility] Comment on above: Performed By: #### 2 87936 #### [facility],[address] [place] [address] 86002 Protein [Mass/Vol] 7.3 g/dL Normal 6.4 - 8.2 [facility] Comment on above: Performed By: #### 2 88054 #### [facility],[address] [place] [address] 31255 Sodium [Moles/Vol] 140 mmol/L Normal 136 - 145 [facility] Comment on above: Performed By: #### 2 22975 #### [facility],[address] [place] [address]289 Urea nitrogen [Mass/Vol] 21 mg/dL High - [facility] Comment on above: Performed By: #### 2 80690 #### [facility],[address] [place] [address] 48429 CREATININEon 10-07-2020 Creatinine [Mass/Vol] 0.71 mg/dL Normal 0.55 - 1.02 [facility] Comment on above: Performed By: #### 2 13665 #### [facility],[address] [place] [address] LT MAMM CLIP PLACEMENTon LT MAMM CLIP PLACEMENT [address] [address] Patient: ELIDA PENALOZA Phone#: : 1955 Age: 65 Gender: F Pt. Type: Out Account: [id number] Location: [facility] Ordering: TAMMIE DE LA TORRE Exam Date: 09/24/2020/9:30 Family Phys: Charge Code: [id number] Physician: [place] Order #: [id number] DLP Dose#: PROCEDURE: LEFT MAMMOGRAM CLIP PLACEMENT COMPARISON: [facility], , 3D BILAT DIAGNOSTIC, 09/04/2020, 10:04. INDICATIONS: LT BREAST BIOPSY CLIP PLACEMENT FINDINGS: LEFT BREAST: MASS (finding with convex borders visible on two orthogonal views), characterized by spiculated suspicious morphology, posterior depth, 2 o'clock position, and 77b75m00 mm size. A metallic marker is present in the mass. CONCLUSION: Postprocedure mammogram for biopsy marker placement. PLEASE NOTE: A NORMAL MAMMOGRAM DOES NOT EXCLUDE THE POSSIBILITY OF BREAST CANCER. A CLINICALLY SUSPICIOUS PALPABLE LUMP SHOULD BE BIOPSIED. THIS FACILITY UTILIZES A REMINDER SYSTEM TO ENSURE THAT ALL PATIENTS RECEIVE REMINDER LETTERS FOR APPOINTMENTS. THIS INCLUDES REMINDERS FOR ROUTINE MAMMOGRAMS, DIAGNOSITC MAMMOGRAMS, OR OTHER BREAST IMAGING INTERVENTIONS WHEN APPROPRIATE. THIS PATIENT WILL BE PLACED IN THE APPROPRIATE REMINDER SYSTEM. Dictated by: Natalya Rehman MD on 09/24/2020 at 11:22 Approved by: Natalya Rehman MD on 09/24/2020 at 11:29 Normal [facility] US CORE BX BREAST LEFT 1ST L ESIONon 09-24-2020 US CORE BX BREAST LEFT 1ST LESION [place] [address] [place], [place] [address] Patient: ELIDA PENALOZA Phone#: : 1955 Age: 65 Gender: F Pt. Type: Out Account: [id number] Location: 062 Ordering: TAMMIE DE LA TORRE Exam Date: 09/24/2020/8:15 Family Phys: Charge Code: [id number] Physician: [place] Order #: [id number] DLP Dose#: This report includes an Addendum and supersedes previous reports for this exam. PROCEDURE: PERCUTANEOUS LT BREAST ULTRASOUND GUIDED BIOPSY COMPARISON: [facility], , 3D BILAT DIAGNOSTIC, 09/04/2020, 10:04. INDICATIONS: Left breast mass DESCRIPTION: After obtaining informed consent, an ultrasound-guided biopsy was performed in the usual sterile manner. FINDINGS: SPECIMEN #, LOCATION: Left breast mass in the 2 o'clock position measuring 1.4 x 1.4 cm. Four biopsy passes were performed. BIOPSY NEEDLE: 12 gauge Achieve core biopsy needle. MARKERS(S) PLACED: A single metallic marker was placed in the appropriate targeted location. MEDICATION: 2% lidocaine with epinephrine administered locally. 2% lidocaine administered superficially. COMPLICATIONS: None. PATHOLOGY LAB: Specimen submitted to pathology Other: Previously identified lesion behind the nipple is again identified measuring 0.3 x 0.4 x 0.3 cm. The lesion is irregular in configuration CONCLUSION: 1.Uneventful ultrasound-guided breast biopsy. The patient was instructed to obtain follow up care and biopsy results from the referring physician. An addendum to this report will be provided with radiological-pathologica l correlation after the pathology results are available. 2. Small irregular-shaped lesion behind the nipple, cannot exclude malignancy; papilloma is also a consideration. Dictated by: Natalya Rehman MD on 09/24/2020 at 11:08 Approved by: Natalya Rehman MD on 09/24/2020 at 11:22 Continued Report - Page 2 of 2 Patient: ELIDA PENALOZA Phone#: : 1955 Age: 65 Gender: F Pt. Type: Out Account: [id number] Location: 2 Ordering: TAMMIE DE LA TORRE Exam Date: 09/24/2020/8:15 Family Phys: Charge Code: [id number] Physician: [place] Order #: [id number] DLP Dose#: ADDENDUM: Pathology shows malignancy, invasive moderately differentiated ductal carcinoma, concordant with imaging findings. Dictated by: Natalya Rehman MD on 09/29/2020 at 16:33 Approved by: Natalya Rehman MD on 09/29/2020 at 16:34 Normal [facility] 3D MAMM BILAT DIAGNOSTICon 0 09-04-2020 3D MAMM BILAT DIAGNOSTIC [place] [address] Patient: ELIDA PENALOZA Phone#: : 1955 Age: 65 Gender: F Pt. Type: Out Account: [id number] Location: Ordering: WILDER RADHA Exam Date: 09/04/2020/10:04 Family Phys: Charge Code: 645157 Physician: [place] Order #: [id number] DLP Dose#: PROCEDURE: BILATERAL DIAGNOSTIC BREAST TOMOSYNTHESIS MAMMOGRAM WITH CAD COMPARISON: [facility], July 12, 2006. INDICATIONS: BREAST MASS BREAST COMPOSITION: Almost entirely fatty(<25% glandular). FINDINGS: DIAGNOSTIC CATEGORY 0--INCOMPLETE ASSESSMENT: NEED ADDITIONAL IMAGING EVALUATION. RIGHT BREAST: No significant suspicious finding. No significant change has occurred. LEFT BREAST: MASS (finding with convex borders visible on two orthogonal views), characterized by benign macrolobulated morphology, spiculated suspicious morphology, posterior depth, 2 o'clock position, and 18 x 12 x 15 mm size. LEFT BREAST: FOCAL ASYMMETRY (finding without convex borders usually visible on two orthogonal views), characterized by spiculated suspicious morphology, mid-breast depth, 2 o'clock position, and 3 x 3 x 6 mm size, anterior and superior to the larger focus, possible satellite lesion RECOMMENDATIONS: ULTRASOUND: LEFT BREAST --same day ultrasound and provide an additional report. PLEASE NOTE: A NORMAL MAMMOGRAM DOES NOT EXCLUDE THE POSSIBILITY OF BREAST CANCER. A CLINICALLY SUSPICIOUS PALPABLE LUMP SHOULD BE BIOPSIED. THIS FACILITY UTILIZES A REMINDER SYSTEM TO ENSURE THAT ALL PATIENTS RECEIVE REMINDER LETTERS FOR APPOINTMENTS. THIS INCLUDES REMINDERS FOR ROUTINE MAMMOGRAMS, DIAGNOSITC MAMMOGRAMS, OR OTHER BREAST IMAGING INTERVENTIONS WHEN APPROPRIATE. THIS PATIENT WILL BE PLACED IN THE APPROPRIATE REMINDER SYSTEM. Dictated by: Yesy Shukla MD on 09/04/2020 at 10:35 Continued Report - Page 2 of 2 Patient: ELIDA PENALOZA Phone#: : 1955 Age: 65 Gender: F Pt. Type: Out Account: [id number] Location: Ordering: [facility] Exam Date: 09/04/2020/10:04 Family Phys: Charge Code: 712033 Physician: [place] Order #: [id number] DLP Dose#: Approved by: Yesy Shukla MD on 09/04/2020 at 10:48 Normal [facility] US BREAST LT UNILATERAL COMP LETEon 09-04-2020 US BREAST LT UNILATERAL [place] [address] Patient: ELIDA PENALOZA Phone#: : 1955 Age: 65 Gender: F Pt. Type: Out Account: [id number] Location: Ordering: [facility] Exam Date: 09/04/2020/10:21 Family Phys: Charge Code: [id number] Physician: [place] Order #: [id number] [id number] Dose#: PROCEDURE: ULTRASOUND BREAST LT COMPARISON: None. INDICATIONS: Abnormal mammogram TECHNIQUE: Breast ultrasound was performed, with evaluation focusing on all four quadrants. FINDINGS: DIAGNOSTIC CATEGORY 5--HIGHLY SUGGESTIVE OF MALIGNANCY. HIGH PROBABILITY OF MALIGNANCY BASED ON THE FOLLOWING: LEFT BREAST: Solid suspicious-appearing lesion, hypoechoic echotexture, posterior depth, 2 o'clock position, and 15 x 13 x 17 mm size. The finding correlates with the mammogram finding. The finding correlates with the palpable finding. LEFT BREAST: A 4 x 4 x 4 millimeter hypoechoic poorly marginated focus is present deep to the nipple. There is posterior acoustical shadowing. Possibility of papilloma is raised.The finding does not appear to correlate with a mammogram finding. This report was communicated by telephone to DAVID Chavez at [facility] at the dictation time indicated below. RECOMMENDATIONS: ULTRASOUND-GUIDED CORE BIOPSY: LEFT BREAST PLEASE NOTE: A NORMAL MAMMOGRAM DOES NOT EXCLUDE THE POSSIBILITY OF BREAST CANCER. A CLINICALLY SUSPICIOUS PALPABLE LUMP SHOULD BE BIOPSIED. Dictated by: Yesy Shukla MD on 09/04/2020 at 10:51 Approved by: Yesy Shukla MD on 09/04/2020 at 10:54 Normal [facility] Vital Signs Date Time Vital Sign Value Performing Clinician Jaz crane 04-19-2024 10:44-0500 Body mass index (BMI) [Ratio] 20.52 kg/m2 Treatment Wstr Work Phone: [facility] 04-19-2024 10:44-0500 Body temperature 97.5 [degF] Treatment Wstr Work Phone: [facility] 04-19-2024 10:44-0500 Body weight 52.2 kg Treatment Wstr Work Phone: [facility] 04-19-2024 10:44-0500 Diastolic blood pressure 90 mm[Hg] Treatment Wstr Work Phone: [facility] 04-19-2024 10:44-0500 Heart rate 79 /min Treatment Wstr Work Phone: [facility] 04-19-2024 10:44-0500 SaO2% (BldA) [Mass fraction] 98 % Treatment Wstr Work Phone: [facility] 04-19-2024 10:44-0500 Systolic blood pressure 154 mm[Hg] Treatment Wstr Work Phone: [facility] 02-01-2024 08:54-0500 Body height 159.5 cm Salvador Carbone MD Work Phone: [facility] 12-12-2024 08:54-0500 Body mass index (BMI) [Ratio] 21.04 kg/m2 Salvador Carbone MD Work Phone: [facility] 02-01-2024 08:54-0500 Body temperature 97.7 [degF] Salvador Carbone MD Work Phone: [facility] 02-01-2024 08:54-0500 Body weight 53.52 kg Salvador Carbone MD Work Phone: [facility] 02-01-2024 08:54-0500 Diastolic blood pressure 98 mm[Hg] aSlvador Carbone MD Work Phone: [facility] 02-01-2024 08:54-0500 Heart rate 90 /min Salvador Carbone MD Work Phone: [facility] 02-01-2024 08:54-0500 SaO2% (BldA) [Mass fraction] 95 % Salvador Carbone MD Work Phone: [facility] 02-01-2024 08:54-0500 Systolic blood pressure 179 mm[Hg] Salvador Carbone MD Work Phone: [facility] 01-09-2024 10:11-0500 Diastolic blood pressure 84 mm[Hg] Wanda Nowak APRN.EMS DRIVER Work Phone: [facility] 01-09-2024 10:11-0500 Systolic blood pressure 140 mm[Hg] Wanda Nowak APRN.EMS DRIVER Work Phone: [facility] 01-09-2024 09:43-0500 Body height 157.5 cm Wanda Nowak DATABASE SOFTWARE TECHNICIAN.EMS DRIVER Work Phone: [facility] 01-09-2024 09:43-0500 Body mass index (BMI) [Ratio] 21.45 kg/m2 Wanda Nowak DATABASE SOFTWARE TECHNICIAN.EMS DRIVER Work Phone: [facility] 01-09-2024 09:43-0500 Body weight 53.2 kg Wanda Nowak APRN.EMS DRIVER Work Phone: [facility] 01-09-2024 09:43-0500 Heart rate 88 /min Wanda David DATABASE SOFTWARE TECHNICIAN.EMS DRIVER Work Phone: [facility] 01-09-2024 09:43-0500 Respiratory rate 20 /min Wanda David DATABASE SOFTWARE TECHNICIAN.EMS DRIVER Work Phone: [facility] 01-09-2024 09:43-0500 SaO2% (BldA) [Mass fraction] 96 % Wanda David DATABASE SOFTWARE TECHNICIAN.EMS DRIVER Work Phone: [facility] 12-18-2023 10:11-0400 Body mass index (BMI) [Ratio] 21.03 kg/m2 Ronnie Excelsior DATABASE SOFTWARE TECHNICIAN.EMS DRIVER Work Phone: [facility] 12-18-2023 10:11-0400 Body weight 52.16 kg Ronnie Excelsior DATABASE SOFTWARE TECHNICIAN.EMS DRIVER Work Phone: [facility] 12-18-2023 10:11-0400 Diastolic blood pressure 80 mm[Hg] Ronnie Excelsior DATABASE SOFTWARE TECHNICIAN.EMS DRIVER Work Phone: [facility] 12-18-2023 10:11-0400 Heart rate 81 /min Ronnie Excelsior DATABASE SOFTWARE TECHNICIAN.EMS DRIVER Work Phone: [facility] 12-18-2023 10:11-0400 Respiratory rate 14 /min Ronnie Excelsior DATABASE SOFTWARE TECHNICIAN.EMS DRIVER Work Phone: [facility] 12-18-2023 10:11-0400 SaO2% (BldA) [Mass fraction] 97 % Ronnie Excelsior DATABASE SOFTWARE TECHNICIAN.EMS DRIVER Work Phone: [facility] 12-18-2023 10:11-0400 Systolic blood pressure 136 mm[Hg] Ronnie Excelsior DATABASE SOFTWARE TECHNICIAN.EMS DRIVER Work Phone: [facility] 11-03-2023 12:09-0400 Diastolic blood pressure 88 mm[Hg] Treatment Wstr Work Phone: [facility] 11-03-2023 12:09-0400 Systolic blood pressure 163 mm[Hg] Treatment Wstr Work Phone: [facility] 11-03-2023 11:18-0400 Body mass index (BMI) [Ratio] 21.33 kg/m2 Treatment Wstr Work Phone: [facility] 11-03-2023 11:18-0400 Body temperature 97.39 [degF] Treatment Wstr Work Phone: [facility] 11-03-2023 11:18-0400 Body weight 52.9 kg Treatment Wstr Work Phone: [facility] 11-03-2023 11:18-0400 Heart rate 76 /min Treatment Wstr Work Phone: [facility] 11-03-2023 11:18-0400 Respiratory rate 16 /min Treatment Wstr Work Phone: [facility] 11-03-2023 11:18-0400 SaO2% (BldA) [Mass fraction] 97 % Treatment Wstr Work Phone: [facility] 09-13-2023 10:45-0400 Body height 157.5 cm Steven Reedsport DO Work Phone: [facility] 09-13-2023 10:45-0400 Body mass index (BMI) [Ratio] 21.73 kg/m2 Steven Reedsport DO Work Phone: [facility] 09-13-2023 10:45-0400 Body weight 53.9 kg Steven Reedsport DO Work Phone: [facility] 09-13-2023 10:45-0400 Diastolic blood pressure 96 mm[Hg] Steven Reedsport DO Work Phone: [facility] 09-13-2023 10:45-0400 Heart rate 83 /min Steven Reedsport DO Work Phone: [facility] 09-13-2023 10:45-0400 SaO2% (BldA) [Mass fraction] 98 % Steven Reedsport DO Work Phone: [facility] 09-13-2023 10:45-0400 Systolic blood pressure 158 mm[Hg] Steven Anaya DO Work Phone: [facility] 06-12-2023 11:30-0400 Body mass index (BMI) [Ratio] 22 kg/m2 Ronnie Thibodeauxter DATABASE SOFTWARE TECHNICIAN.EMS DRIVER Work Phone: [facility] 06-12-2023 11:30-0400 Body temperature 97.9 [degF] Ronnie Thibodeauxter DATABASE SOFTWARE TECHNICIAN.EMS DRIVER Work Phone: [facility] 06-12-2023 11:30-0400 Body weight 54.57 kg Ronnieleeroy Thibodeauxter DATABASE SOFTWARE TECHNICIAN.EMS DRIVER Work Phone: [facility] 06-12-2023 11:30-0400 Diastolic blood pressure 90 mm[Hg] Ronnie Thibodeauxter DATABASE SOFTWARE TECHNICIAN.EMS DRIVER Work Phone: [facility] 06-12-2023 11:30-0400 Heart rate 76 /min Ronnie Urban DATABASE SOFTWARE TECHNICIAN.EMS DRIVER Work Phone: [facility] 06-12-2023 11:30-0400 SaO2% (BldA) [Mass fraction] 97 % Ronnie Thibodeauxter DATABASE SOFTWARE TECHNICIAN.EMS DRIVER Work Phone: [facility] 06-12-2023 11:30-0400 Systolic blood pressure 158 mm[Hg] Ronnie Torrespster DATABASE SOFTWARE TECHNICIAN.EMS DRIVER Work Phone: [facility] 04-11-2023 13:52-0500 Diastolic blood pressure 70 mm[Hg] Stevo Gregory MD Work Phone: [facility] 04-11-2023 13:52-0500 Heart rate 77 /min Stevo Gregory MD Work Phone: [facility] 04-11-2023 13:52-0500 Respiratory rate 16 /min Stevo Gregory MD Work Phone: [facility] 04-11-2023 13:52-0500 SaO2% (BldA) [Mass fraction] 97 % Stevo Gregory MD Work Phone: [facility] 04-11-2023 13:52-0500 Systolic blood pressure 146 mm[Hg] Stevo Gregory MD Work Phone: [facility] 04-11-2023 12:05-0500 Body temperature 97.2 [degF] Stevo Gregory MD Work Phone: [facility] 01-24-2023 09:58-0500 Body weight 53.52 kg Ronnie Thibodeauxter DATABASE SOFTWARE TECHNICIAN.EMS DRIVER Work Phone: [facility] 01-24-2023 09:58-0500 Diastolic blood pressure 82 mm[Hg] Ronnie Excelsior DATABASE SOFTWARE TECHNICIAN.EMS DRIVER Work Phone: [facility] 01-24-2023 09:58-0500 Heart rate 76 /min Ronnie Thibodeauxter DATABASE SOFTWARE TECHNICIAN.EMS DRIVER Work Phone: [facility] 01-24-2023 09:58-0500 Respiratory rate 15 /min Ronnie Urban DATABASE SOFTWARE TECHNICIAN.EMS DRIVER Work Phone: [facility] 01-24-2023 09:58-0500 SaO2% (BldA) [Mass fraction] 97 % Ronnie Urban DATABASE SOFTWARE TECHNICIAN.EMS DRIVER Work Phone: [facility] 01-24-2023 09:58-0500 Systolic blood pressure 130 mm[Hg] Ronnie Thibodeauxter DATABASE SOFTWARE TECHNICIAN.EMS DRIVER Work Phone: [facility] 01-04-2023 12:07-0500 Diastolic blood pressure 90 mm[Hg] Wanda Older DATABASE SOFTWARE TECHNICIAN.EMS DRIVER Work Phone: [facility] 01-04-2023 12:07-0500 Systolic blood pressure 140 mm[Hg] Wanda Older DATABASE SOFTWARE TECHNICIAN.EMS DRIVER Work Phone: [facility] 01-04-2023 11:34-0500 Body height 157.5 cm Wanda Older DATABASE SOFTWARE TECHNICIAN.EMS DRIVER Work Phone: [facility] 01-04-2023 11:34-0500 Body weight 52.62 kg Wanda Older DATABASE SOFTWARE TECHNICIAN.EMS DRIVER Work Phone: [facility] 01-04-2023 11:34-0500 Heart rate 85 /min Wanda Older DATABASE SOFTWARE TECHNICIAN.EMS DRIVER Work Phone: [facility] 01-04-2023 11:34-0500 Respiratory rate 18 /min Wanda Older DATABASE SOFTWARE TECHNICIAN.EMS DRIVER Work Phone: [facility] 01-04-2023 11:34-0500 SaO2% (BldA) [Mass fraction] 96 % Wanda Older DATABASE SOFTWARE TECHNICIAN.EMS DRIVER Work Phone: [facility] 11-29-2022 09:29-0400 Body temperature 97.2 [degF] Ucon Cortes DATABASE SOFTWARE TECHNICIAN.EMS DRIVER Work Phone: [facility] 11-29-2022 09:29-0400 Body weight 53.98 kg Ucon Cortes DATABASE SOFTWARE TECHNICIAN.EMS DRIVER Work Phone: [facility] 11-29-2022 09:29-0400 Diastolic blood pressure 82 mm[Hg] Vanesa Cortes DATABASE SOFTWARE TECHNICIAN.EMS DRIVER Work Phone: [facility] 11-29-2022 09:29-0400 Heart rate 70 /min Vanesa Cortes DATABASE SOFTWARE TECHNICIAN.EMS DRIVER Work Phone: [facility] 11-29-2022 09:29-0400 SaO2% (BldA) [Mass fraction] 100 % Vanesa Cortes DATABASE SOFTWARE TECHNICIAN.EMS DRIVER Work Phone: [facility] 11-29-2022 09:29-0400 Systolic blood pressure 172 mm[Hg] Vanesa Cortes DATABASE SOFTWARE TECHNICIAN.EMS DRIVER Work Phone: [facility] 09-14-2022 08:00-0400 Body temperature 97.7 [degF] Salvador Carbone MD Work Phone: [facility] 09-14-2022 08:00-0400 Body weight 52.39 kg Salvador Carbone MD Work Phone: [facility] 09-14-2022 08:00-0400 Diastolic blood pressure 84 mm[Hg] Salvador Carbone MD Work Phone: [facility] 09-14-2022 08:00-0400 Heart rate 88 /min Salvador Carbone MD Work Phone: [facility] 09-14-2022 08:00-0400 SaO2% (BldA) [Mass fraction] 96 % Salvador Carbone MD Work Phone: [facility] 09-14-2022 08:00-0400 Systolic blood pressure 150 mm[Hg] Salvador Carbone MD Work Phone: [facility] 06-23-2022 17:48-0400 Body temperature 98.29 [degF] Mt Beasley DATABASE SOFTWARE TECHNICIAN.EMS DRIVER Work Phone: [facility] 06-23-2022 17:48-0400 Body weight 50.71 kg Mt Beasley DATABASE SOFTWARE TECHNICIAN.EMS DRIVER Work Phone: [facility] 06-23-2022 17:48-0400 Diastolic blood pressure 90 mm[Hg] Mt Beasley DATABASE SOFTWARE TECHNICIAN.EMS DRIVER Work Phone: [facility] 06-23-2022 17:48-0400 Heart rate 92 /min Mt Beasley DATABASE SOFTWARE TECHNICIAN.EMS DRIVER Work Phone: [facility] 06-23-2022 17:48-0400 Respiratory rate 19 /min Mt Beasley DATABASE SOFTWARE TECHNICIAN.EMS DRIVER Work Phone: [facility] 06-23-2022 17:48-0400 SaO2% (BldA) [Mass fraction] 99 % Mt Beasley DATABASE SOFTWARE TECHNICIAN.EMS DRIVER Work Phone: [facility] 06-23-2022 17:48-0400 Systolic blood pressure 162 mm[Hg] Mt Beasley DATABASE SOFTWARE TECHNICIAN.EMS DRIVER Work Phone: [facility] 06-15-2022 15:20-0400 Body temperature 97.81 [degF] Treatment Wstr Work Phone: [facility] 06-15-2022 15:20-0400 Diastolic blood pressure 90 mm[Hg] Treatment Wstr Work Phone: [facility] 06-15-2022 15:20-0400 Heart rate 80 /min Treatment Wstr Work Phone: [facility] 06-15-2022 15:20-0400 Respiratory rate 16 /min Treatment Wstr Work Phone: [facility] 06-15-2022 15:20-0400 SaO2% (BldA) [Mass fraction] 97 % Treatment Wstr Work Phone: [facility] 06-15-2022 15:20-0400 Systolic blood pressure 155 mm[Hg] Treatment Wstr Work Phone: [facility] 06-14-2022 10:43-0400 Body height 157.5 cm Vanesa Cortes DATABASE SOFTWARE TECHNICIAN.EMS DRIVER Work Phone: [facility] 06-14-2022 10:43-0400 Body temperature 98.1 [degF] Vanesa Cortes DATABASE SOFTWARE TECHNICIAN.EMS DRIVER Work Phone: [facility] 06-14-2022 10:43-0400 Body weight 50.35 kg Vanesa Cortes DATABASE SOFTWARE TECHNICIAN.EMS DRIVER Work Phone: [facility] 06-14-2022 10:43-0400 Diastolic blood pressure 106 mm[Hg] Ucon Cortes DATABASE SOFTWARE TECHNICIAN.EMS DRIVER Work Phone: [facility] 06-14-2022 10:43-0400 Heart rate 83 /min Ucon Cortes DATABASE SOFTWARE TECHNICIAN.EMS DRIVER Work Phone: [facility] 06-14-2022 10:43-0400 Systolic blood pressure 144 mm[Hg] Ucon Cortes DATABASE SOFTWARE TECHNICIAN.EMS DRIVER Work Phone: [facility] 12-08-2021 13:11-0400 Body temperature 97.59 [degF] Treatment Wstr Work Phone: [facility] 12-08-2021 13:11-0400 Diastolic blood pressure 71 mm[Hg] Treatment Wstr Work Phone: [facility] 12-08-2021 13:11-0400 Heart rate 53 /min Treatment Wstr Work Phone: [facility] 12-08-2021 13:11-0400 Systolic blood pressure 142 mm[Hg] Treatment Wstr Work Phone: [facility] 11-30-2021 16:06-0400 Body temperature 97.5 [degF] Abiola Rivera MD Work Phone: [facility] 11-30-2021 16:06-0400 Body weight 48.76 kg Abiola Rivera MD Work Phone: [facility] 11-30-2021 16:06-0400 Heart rate 85 /min Abiola Rivera MD Work Phone: [facility] 11-23-2021 15:08-0400 Diastolic blood pressure 90 mm[Hg] Cris Simpson MD, MD Work Phone: [facility] 11-23-2021 15:08-0400 Heart rate 91 /min Cris Simpson MD, MD Work Phone: [facility] 11-23-2021 15:08-0400 Systolic blood pressure 150 mm[Hg] Cris Simpson MD, MD Work Phone: [facility] 11-23-2021 15:05-0400 Body temperature 98.4 [degF] Cris Simpson MD, MD Work Phone: [facility] 11-23-2021 15:05-0400 Body weight 48.99 kg Cris Simpson MD, MD Work Phone: [facility] 11-23-2021 15:05-0400 Respiratory rate 15 /min Cris Simpson MD, MD Work Phone: [facility] 11-23-2021 15:05-0400 SaO2% (BldA) [Mass fraction] 97 % Cris Simpson MD, MD Work Phone: [facility] 11-09-2021 15:37-0400 Diastolic blood pressure 81 mm[Hg] Cris Simpson MD, MD Work Phone: [facility] 11-09-2021 15:37-0400 Heart rate 81 /min Cris Simpson MD, MD Work Phone: [facility] 11-09-2021 15:37-0400 Systolic blood pressure 168 mm[Hg] Cris Simpson MD, MD Work Phone: [facility] 11-09-2021 15:35-0400 Body temperature 97.9 [degF] Cris Simpson MD, MD Work Phone: [facility] 11-09-2021 15:35-0400 Body weight 48.99 kg Cris Simpson MD, MD Work Phone: [facility] 11-09-2021 15:35-0400 Respiratory rate 16 /min Cris Simpson MD, MD Work Phone: [facility] 11-09-2021 15:35-0400 SaO2% (BldA) [Mass fraction] 98 % Cris Simpson MD, MD Work Phone: [facility] 10-26-2021 15:40-0400 Diastolic blood pressure 64 mm[Hg] Cris Simpson MD, MD Work Phone: [facility] 10-26-2021 15:40-0400 Heart rate 60 /min Cris Simpson MD, MD Work Phone: [facility] 10-26-2021 15:40-0400 Systolic blood pressure 177 mm[Hg] Cris Simpson MD, MD Work Phone: [facility] 10-26-2021 15:09-0400 Body temperature 98.01 [degF] Cris Simpson MD, MD Work Phone: [facility] 10-26-2021 15:09-0400 Body weight 49.44 kg Cris Simpson MD, MD Work Phone: [facility] 10-26-2021 15:09-0400 Respiratory rate 15 /min Cris Simpson MD, MD Work Phone: [facility] 10-26-2021 15:09-0400 SaO2% (BldA) [Mass fraction] 99 % Cris Simpson MD, MD Work Phone: [facility] 10-19-2021 15:27-0400 Diastolic blood pressure 83 mm[Hg] Cris Simpson MD, MD Work Phone: [facility] 10-19-2021 15:27-0400 Systolic blood pressure 175 mm[Hg] Cris Simpson MD, MD Work Phone: [facility] 10-19-2021 15:24-0400 Body temperature 98.6 [degF] Cris Simpson MD, MD Work Phone: [facility] 10-19-2021 15:24-0400 Heart rate 83 /min Cris Simpson MD, MD Work Phone: [facility] 10-19-2021 15:24-0400 Respiratory rate 16 /min Cris Simpson MD, MD Work Phone: [facility] 10-19-2021 15:24-0400 SaO2% (BldA) [Mass fraction] 98 % Cris Simpson MD, MD Work Phone: [facility] 09-13-2021 11:12-0400 Body temperature 97.81 [degF] Abiola iRvera MD Work Phone: [facility] 09-13-2021 11:12-0400 Body weight 47.63 kg Abiola Rivera MD Work Phone: [facility] 09-13-2021 11:12-0400 Diastolic blood pressure 106 mm[Hg] Abiola Rivera MD Work Phone: [facility] 09-13-2021 11:12-0400 Heart rate 47 /min Abiola Rivera MD Work Phone: [facility] 09-13-2021 11:12-0400 Systolic blood pressure 173 mm[Hg] Abiola Rivera MD Work Phone: [facility] 09-13-2021 09:49-0400 Diastolic blood pressure 96 mm[Hg] Cris Simpson MD, MD Work Phone: [facility] 09-13-2021 09:49-0400 Heart rate 86 /min Cris Simpson MD, MD Work Phone: [facility] 09-13-2021 09:49-0400 Systolic blood pressure 178 mm[Hg] Cris Simpson MD, MD Work Phone: [facility] 09-13-2021 09:39-0400 Body temperature 98.6 [degF] Cris Simpson MD, MD Work Phone: [facility] 09-13-2021 09:39-0400 Body weight 47.85 kg Cris Simpson MD, MD Work Phone: [facility] 09-13-2021 09:39-0400 Respiratory rate 15 /min Cris Simpson MD, MD Work Phone: [facility] 09-13-2021 09:39-0400 SaO2% (BldA) [Mass fraction] 96 % Cris Simpson MD, MD Work Phone: [facility] 08-05-2021 12:09-0400 Body height 157.5 cm Lilly Tomas DO Work Phone: [facility] 08-05-2021 12:09-0400 Body weight 47.17 kg Lilly Tomas DO Work Phone: [facility] 07-13-2021 09:53-0400 Body temperature 98.29 [degF] Abiola Rivera MD Work Phone: [facility] 07-13-2021 09:53-0400 Body weight 48.76 kg Abiola Rivera MD Work Phone: [facility] 07-13-2021 09:53-0400 Diastolic blood pressure 86 mm[Hg] Abiola Rivera MD Work Phone: [facility] 07-13-2021 09:53-0400 Heart rate 44 /min Abiola Rivera MD Work Phone: [facility] 07-13-2021 09:53-0400 SaO2% (BldA) [Mass fraction] 97 % Abiola Rivera MD Work Phone: [facility] 07-13-2021 09:53-0400 Systolic blood pressure 191 mm[Hg] Abiloa Rivera MD Work Phone: [facility] 07-13-2021 09:49-0400 Body weight 48.76 kg Lab/Port Wstr Work Phone: [facility] 05-18-2021 16:04-0400 Body temperature 98.2 [degF] Abiola Rivera MD Work Phone: [facility] 05-18-2021 16:04-0400 Body weight 49.67 kg Abiola Rivera MD Work Phone: [facility] 05-18-2021 16:04-0400 Diastolic blood pressure 99 mm[Hg] Abiola Rivera MD Work Phone: [facility] 05-18-2021 16:04-0400 Heart rate 85 /min Abiola Rivera MD Work Phone: [facility] 05-18-2021 16:04-0400 SaO2% (BldA) [Mass fraction] 98 % Abiola Rivera MD Work Phone: [facility] 05-18-2021 16:04-0400 Systolic blood pressure 169 mm[Hg] Abiola Rivera MD Work Phone: [facility] Encounters Encounter Date Encounter Type Care Provider Facility Start: 10-23-2024 End: 10-23-2024 amb[facility] [place] Start: 10-23-2024 End: 10-23-2024 Patient encounter procedure Harpreet Tran MA [facility] [place] Comment on above: Population Health Na vigation Outreach ([facility] ) Start: 04-21-2024 End: 04-21-2024 Follow-up encounter Ronn Wang MD Work Phone: [facility] [place] Start: 04-19-2024 End: 04-22-2024 Telephone encounter Salvador Carbone MD Work Phone: Hematology/Oncology Start: 04-19-2024 End: 04-19-2024 ambulatory Treatment Rm 16 Fazal [facility] Work Phone: Hematology/Oncology Comment on above: Breast cancer metast asized to axillary lymph node, left (HCC) (Primary Dx) Start: 04-06-2024 End: 04-10-2024 Follow-up encounter Ronn Wang MD Work Phone: Internal [facility] [place] Comment on above: Pure hypercholestero lemia (Primary Dx) Start: 04-04-2024 End: 04-04-2024 ambulatory RONN WANG Facility:[facility] Start: 03-04-2024 End: 03-04-2024 ambulatory Fannie Truong LPN [facility] [place] Start: 03-01-2024 End: 03-01-2024 Refill Salvador Carbone MD Work Phone: Hematology/Oncology Comment on above: Refill Request Start: 02-01-2024 End: 02-02-2024 Telephone encounter Letty MELENDEZ Hematology/Oncology Comment on above: Social Work Services Start: 02-01-2024 End: 02-01-2024 ambulatory Salvador Carbone MD Work Phone: Hematology/Oncology Comment on above: Encounter for screen ing mammogram for high-risk patient (Primary Dx); Breast cancer metastasized to axillary lymph node, left (HCC) Start: 02-01-2024 End: 02-01-2024 Patient encounter procedure Salvador Carbone MD Work Phone: Hematology/Oncology Start: 01-29-2024 End: 01-29-2024 ambulatory SALVADOR CARBONE Facility:[facility] Start: 01-29-2024 End: 01-29-2024 Subsequent hospital visit by physician Bone Density [facility] Work Phone: Radiology Comment on above: Osteopenia after men opause [M85.80, Z78.0] Start: 01-16-2024 End: 01-17-2024 Telephone encounter Wanda Nowak APRN.EMS DRIVER Work Phone: [facility] [place] Comment on above: Referral Request Start: 01-09-2024 End: 01-09-2024 Subsequent hospital visit by physician Xr [facility] Work Phone: Radiology Comment on above: Foot injury, left, i nitial encounter [S99.922A] Start: 01-09-2024 End: 01-09-2024 ambulatory WANDA NOWAK Facility:[facility] Start: 01-09-2024 End: 01-09-2024 Patient encounter procedure Wanda OcasioDavid DATABASE SOFTWARE TECHNICIAN.EMS DRIVER Work Phone: Internal Medicine [place] Comment on above: Medicare isaura abernathy (Primary Dx); Foot injury, left, initial encounter; Left foot pain; Elevated blood pressure reading; Screening for depression; Encounter for screening examination for other mental health and behavioral disorders; Coronary artery calcification seen on CAT scan Start: 01-09-2024 End: 01-09-2024 Patient encounter status Wanda Nowak DATABASE SOFTWARE TECHNICIAN.EMS DRIVER Work Phone: [facility] Start: 12-18-2023 End: 12-18-2023 Patient encounter procedure Ronnie Urban APRN.EMS DRIVER Work Phone: Pulmonary Medicine Comment on above: Lung nodule (Primary Dx); Former tobacco use; Encounter for screening for lung cancer Start: 12-18-2023 End: 12-18-2023 ambulatory RONN WANG Facility:[facility] Start: 12-18-2023 End: 12-18-2023 Subsequent hospital visit by physician Lindsey [facility] (I-Stat) Work Phone: Cat Scan Start: 11-03-2023 End: 11-03-2023 Patient encounter procedure [facility] Work Phone: H[facility]ology[facility]Oncology Start: 11-03-2023 End: 11-03-2023 ambulatory GISEL CARMEN Hematology/Oncology Comment on above: Breast cancer metast asized to axillary lymph node, left (HCC) (Primary Dx) Start: 09-13-2023 End: 09-13-2023 Patient encounter procedure Steven Anaya DO Work Phone: Cardiology Comment on above: PVC (premature ventr icular contraction) (Primary Dx); Coronary artery calcification seen on CAT scan; Pure hypercholesterolemia Start: 07-18-2023 Documentation procedure Mammog vidya Coordinator [facility] Department Start: 07-18-2023 Letter encounter Mammography Coordinator [facility] Department Start: 07-18-2023 End: 07-18-2023 Subsequent hospital visit by physician Screen Mammo [facility] Mammogram Comment on above: Malignant 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, estrogen receptor positive (HCC) [C50.412, Z17.0] Start: 06-12-2023 End: 06-12-2023 Patient encounter procedure Ronnie Urban DATABASE SOFTWARE TECHNICIAN.EMS DRIVER Work Phone: Pulmonary Medicine Comment on above: Lung nodule (Primary Dx); Former tobacco use Start: 06-12-2023 End: 06-12-2023 Subsequent hospital visit by physician Ct [facility] (I-Stat) Work Phone: Cat Scan Comment on above: Lung nodules [R91.8] Start: 04-20-2023 Telephone encounter Stevo Gregory MD Work Phone: General Surgery Comment on above: Patient Question Start: 04-18-2023 Telephone encounter Salvador cruz MD Work Phone: Hematology/Oncology Comment on above: Medication Problem Refill Request Start: 04-13-2023 Telephone encounter Stevo Gregory MD Work Phone: General Surgery Comment on above: Results Start: 04-11-2023 End: 04-11-2023 Subsequent hospital visit by physician Stevo Gregory MD Work Phone: Ambulatory Surgery Comment on above: Positive colorectal cancer screening using Cologuard test [R19.5] Start: 03-24-2023 Orders Only Mae chen DATABASE SOFTWARE TECHNICIAN.EMS DRIVER Work Phone: Hematology/Oncology Comment on above: Lung nodule (Primary Dx) Start: 03-23-2023 Telephone encounter Ronn reynoso MD Work Phone: Internal Medicine [place] Comment on above: Results Start: 03-03-2023 Telephone encounter Sofya foreman PA-C Work Phone: General Surgery Comment on above: 04/11/2023 COLON/EGD [facility] Start: 02-02-2023 Orders Only Ronn eldridge MD Work Phone: Internal Medicine [place] Comment on above: Positive colorectal cancer screening using Cologuard test (Primary Dx) Results Start: 01-24-2023 End: 01-24-2023 Patient encounter procedure Ronnie Urban DATABASE SOFTWARE TECHNICIAN.EMS DRIVER Work Phone: Pulmonary Medicine Comment on above: Encounter for screen ing for lung cancer (Primary Dx); Tobacco use current Start: 01-05-2023 Telephone encounter Ronn reynoso MD Work Phone: Internal Medicine [place] Comment on above: Results Start: 01-04-2023 End: 01-04-2023 Patient encounter procedure Wanda Reid DATABASE SOFTWARE TECHNICIAN.EMS DRIVER Work Phone: Internal Medicine [place] Comment on above: Medicare welcome exa m (Primary Dx); Chronic pain of both shoulders; Elevated blood pressure reading; Vitamin D deficiency; Osteopenia after menopause; Encounter for screening for lung cancer; Colon cancer screening; Encounter for lipid screening for cardiovascular disease Start: 01-04-2023 End: 01-04-2023 Patient encounter status Wanda Reid DATABASE SOFTWARE TECHNICIAN.EMS DRIVER Work Phone: [facility] Work Phone: Start: 12-27-2022 Telephone encounter Vanesa smith DATABASE SOFTWARE TECHNICIAN.EMS DRIVER Work Phone: Hematology/Oncology Comment on above: Radiology Mammogram Start: 11-29-2022 End: 11-29-2022 ambulatory Treatment Rm 13 Fazal [facility] Work Phone: Hematology/Oncology Comment on above: Breast cancer metast asized to axillary lymph node, left (HCC) (Primary Dx) Malignant 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, estrogen receptor positive (HCC) (Primary Dx); Encounter for screening mammogram for high-risk patient Start: 11-29-2022 End: 11-29-2022 Patient encounter procedure Vanesa Cortes DATABASE SOFTWARE TECHNICIAN.EMS DRIVER Work Phone: [facility] Start: 11-01-2022 Telephone encounter Ronn reynoso MD Work Phone: Internal Medicine [place] Comment on above: Patient Question Start: 10-19-2022 End: 10-19-2022 Subsequent hospital visit by physician [facility] 1 Work Phone: Radiology Comment on above: Malignant 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, estrogen receptor positive (HCC) [C50.412, Z17.0] Start: 10-03-2022 Telephone encounter Trice Doan RN Hematology/Oncology Comment on above: Research Start: 09-15-2022 Telephone encounter Trice Doan RN Hematology/Oncology Comment on above: Research Start: 09-14-2022 End: 09-14-2022 ambulatory Salvador Carbone MD Work Phone: Hematology/Oncology Comment on above: Left axillary pain ( Primary Dx); Mastodynia; Breast cancer metastasized to axillary lymph node, left (HCC) Start: 09-14-2022 End: 09-14-2022 Patient encounter procedure Salvador Carbone MD Work Phone: [facility] Start: 08-30-2022 ambulatory Vanesa mcginnis APRN.EMS DRIVER Work Phone: Hematology/Oncology Comment on above: Pain in the area of my masectomy. Start: 07-11-2022 End: 07-11-2022 Subsequent hospital visit by physician Screen Mammo [facility] Mammogram Comment on above: Malignant 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, estrogen receptor positive (HCC) [C50.412, Z17.0] Start: 07-04-2022 Telephone encounter Vanesa smith APRN.EMS DRIVER Work Phone: Hematology/Oncology Comment on above: Symptoms Start: 06-23-2022 End: 06-23-2022 Subsequent hospital visit by physician Xr [facility] [place] Work Phone: Radiology Comment on above: Elbow injury, initia l encounter [S59.909A] Start: 06-23-2022 End: 06-23-2022 Patient encounter procedure [place]as[place] APRN.EMS DRIVER Work Phone: [facility] Comment on above: Elbow injury, initia l encounter (Primary Dx) Start: 06-15-2022 End: 06-15-2022 ambulatory Treatment Rm 13 Fazal [facility] Work Phone: Hematology/Oncology Comment on above: Breast cancer metast asized to axillary lymph node, left (HCC) (Primary Dx) Start: 06-14-2022 Telephone encounter Vanesa smith DATABASE SOFTWARE TECHNICIAN.EMS DRIVER Work Phone: Hematology/Oncology Comment on above: AVS 06/14/22 Start: 06-14-2022 End: 06-14-2022 ambulatory Vanesa Cortes DATABASE SOFTWARE TECHNICIAN.EMS DRIVER Work Phone: Hematology/Oncology Comment on above: Malignant 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, estrogen receptor positive (HCC) (Primary Dx); Vitamin D deficiency; Encounter for screening mammogram for high-risk patient Start: 06-14-2022 End: 06-14-2022 Patient encounter procedure Vanesa Cortes DATABASE SOFTWARE TECHNICIAN.EMS DRIVER Work Phone: [facility] Start: 05-24-2022 Telephone encounter Fredy flowers MD Work Phone: Hematology/Oncology Comment on above: Appointment Start: 05-11-2022 Telephone encounter Abiola Rivera MD Work Phone: Hematology/Oncology Comment on above: Appointment Start: 03-18-2022 Refill Jamaal Wang Work Phone: Hematology/Oncology Comment on above: Refill Request; Luna ent Update Start: 12-27-2021 End: 12-27-2021 ambulatory Cris Simpson MD Work Phone: Radiation Oncology Comment on above: Malignant 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, estrogen receptor positive (HCC) (Primary Dx) Start: 12-27-2021 End: 12-27-2021 Telemedicine consultation with patient Cris Simpson MD, MD Work Phone: [facility] Start: 12-08-2021 End: 12-08-2021 ambulatory Treatment Rm 5 Fazal [facility] Work Phone: Hematology/Oncology Comment on above: Osteopenia after men opause (Primary Dx); Breast cancer metastasized to axillary lymph node, left (HCC) Start: 11-30-2021 End: 11-30-2021 ambulatory Abiola Rivera MD Work Phone: Hematology/Oncology Comment on above: Malignant 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, estrogen receptor positive (HCC) (Primary Dx); Vitamin D deficiency; Osteopenia after menopause Start: 11-30-2021 End: 11-30-2021 Patient encounter procedure Abiola Rivera MD Work Phone: [facility] [employer] Start: 11-29-2021 ambulatory Cris Simpson MD Work Phone: Radiation Oncology Comment on above: Patient Education Start: 11-23-2021 End: 11-23-2021 Patient encounter procedure Cris Simpson MD Work Phone: Radiation Oncology Comment on above: Malignant 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, estrogen receptor positive (HCC) (Primary Dx) Start: 11-22-2021 End: 11-22-2021 Subsequent hospital visit by physician Bone Density [facility] Work Phone: Radiology Comment on above: Malignant 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, estrogen receptor positive (HCC) [C50.412, Z17.0] Start: 11-18-2021 Patient encounter procedure Yefri Simpson MD, MD Work Phone: [facility] Start: 11-18-2021 Radiation Oncology Note Gonzalo Simpson MD Work Phone: Radiation Oncology Comment on above: Simulation Note Start: 11-16-2021 Patient encounter procedure Yefri Simpson MD, MD Work Phone: [facility] Start: 11-16-2021 Radiation Oncology Note Gonzalo Simpson MD Work Phone: Radiation Oncology Comment on above: Simulation Note Start: 11-09-2021 End: 11-09-2021 Patient encounter procedure Cris Simpson MD Work Phone: Radiation Oncology Comment on above: Malignant 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, estrogen receptor positive (HCC) (Primary Dx) Start: 10-27-2021 Telephone encounter Jamaal lazo DO Work Phone: Hematology/Oncology Comment on above: Results (Ki-67 stain 10%) Start: 10-26-2021 End: 10-26-2021 Patient encounter procedure Cris Simpson MD Work Phone: Radiation Oncology Comment on above: Malignant 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, estrogen receptor positive (HCC) (Primary Dx) Start: 10-20-2021 End: 10-20-2021 Patient encounter procedure Kelsie Mendoza PA-C Work Phone: [facility] Comment on above: Malignant 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, estrogen receptor positive (HCC) (Primary Dx) Start: 10-20-2021 End: 10-20-2021 Subsequent hospital visit by physician Diagnostic Mammo [facility] Start: 10-19-2021 End: 10-19-2021 Patient encounter procedure Cris Simpson MD Work Phone: Radiation Oncology Comment on above: Malignant 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, estrogen receptor positive (HCC) (Primary Dx) Start: 10-13-2021 ambulatory Cris Simpson MD Work Phone: Radiation Oncology Comment on above: Patient Education Malignant 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, estrogen receptor positive (HCC) (Primary Dx) Start: 10-13-2021 Patient encounter procedure Yefri Simpson MD, MD Work Phone: [facility] Start: 10-13-2021 Radiation Oncology Note Gonzalo Simpson MD Work Phone: Radiation Oncology Comment on above: Simulation Note Treatment Planning Start: 10-07-2021 Telephone encounter Abiola Rivera MD Work Phone: Hematology/Oncology Comment on above: Patient Update; Orde rs Start: 09-22-2021 End: 09-22-2021 Patient encounter procedure Kelsie Mendoza PA-C Work Phone: [facility] Comment on above: Breast cancer metast asized to axillary lymph node, left (HCC) (Primary Dx); Malignant neoplasm of upper-outer quadrant of left breast in female, estrogen receptor positive (HCC) Start: 09-21-2021 Orders Only Lilly pace DO Work Phone: [facility] Comment on above: Malignant 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, estrogen receptor positive (HCC) (Primary Dx) Start: 09-16-2021 End: 09-16-2021 ambulatory Breast Tb Conference [facility] Comment on above: Breast Cancer Start: 09-15-2021 Telephone encounter Clarisa Sandoval RN Work Phone: General Surgery Comment on above: Patient Update (sergio gallardo) Start: 09-13-2021 End: 09-13-2021 Nursing evaluation of patient and report Merari Vera LPN Work Phone: [facility] Comment on above: Malignant 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, estrogen receptor positive (HCC) (Primary Dx) Start: 09-13-2021 End: 09-13-2021 ambulatory Abiola Rivera MD Work Phone: Hematology/Oncology Comment on above: Malignant 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, estrogen receptor positive (HCC) (Primary Dx); Vitamin D deficiency; Encounter for screening for osteoporosis; Asymptomatic postmenopausal status Start: 09-13-2021 End: 09-13-2021 Patient encounter procedure Abiola Rivera MD Work Phone: [facility] Start: 09-13-2021 End: 09-13-2021 Patient encounter procedure Cris Simpson MD Work Phone: Radiation Oncology Comment on above: Malignant 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, estrogen receptor positive (HCC) (Primary Dx) Start: 09-08-2021 End: 09-08-2021 Orders Only Lilly Tomas DO Work Phone: General Surgery Comment on above: 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); Breast cancer metastasized to axillary lymph node, left (HCC) 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; Patient Update Malignant 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, estrogen receptor positive (HCC) (Primary Dx); Breast cancer metastasized to axillary lymph node, left (HCC) Personal history of breast cancer (Primary Dx); Breast cancer screening, high risk patient Consult Start: 09-03-2021 ambulatory Mine Barclay RN INDP SARBJIT DAVIS Start: 09-03-2021 Telephone encounter Juhi Verma Hematology/Oncology Comment on above: Social Work Services Post Op Follow Up Patient Update Transition Of Care ( [facility] Hospital Discharge 09/02/21) Start: 09-02-2021 Social Work Destiny MELENDEZ Hemat ology/Oncology Comment on above: Insurance denial Start: 09-02-2021 End: 09-02-2021 Evaluation and management of inpatient LILLYMORENITA TOMAS Facility:[facility] Start: 09-01-2021 Telephone encounter Clarisa Sandoval RN Work Phone: General Surgery Comment on above: PreOp Call Patient Update; Appo intment Appointment Start: 08-31-2021 Admission to [facility] Merari Vera LPN Work Phone: [facility] Comment on above: surgery Start: 08-31-2021 E-mail encounter all m caregiver Merari Vera LPN Work Phone: [facility] Start: 08-31-2021 Telephone encounter Merari toney LPN Work Phone: [facility] Comment on above: Patient Update Start: 08-17-2021 Telephone encounter Lilly Tomas DO Work Phone: General Surgery Comment on above: Appointment Start: 08-12-2021 Telephone encounter Juhi Verma Hematology/Oncology Comment on above: Social Work Services Start: 08-11-2021 Telephone encounter Juhi Verma Hematology/Oncology Comment on above: Social Work Services Start: 08-06-2021 ambulatory Stevo woods MD Work Phone: General Surgery Comment on above: Re: Insurance [employer] Start: 08-06-2021 E-mail encounter fro m caregiver Stevo Gregory MD Work Phone: [facility] Start: 08-05-2021 End: 08-05-2021 Patient encounter procedure Lilly Tomas Work Phone: [facility] Comment on above: Breast cancer metast asized to axillary lymph node, left (HCC) (Primary Dx); Smoking Start: 07-29-2021 Telephone encounter Stevo Gregory MD Work Phone: Family Medicine [place] Comment on above: Orders Start: 07-13-2021 End: 07-13-2021 Patient encounter procedure Abiola Rivera MD Work Phone: [facility] Start: 07-13-2021 End: 07-13-2021 ambulatory Lab/[place] [facility] Work Phone: Hematology/Oncology Comment on above: Malignant 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, estrogen receptor positive (HCC); 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, estrogen receptor positive (HCC) (Primary Dx); 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); Vitamin D deficiency Start: 07-05-2021 ambulatory Anel Tian MD Work Phone: Mammography Comment on above: Breast Problem Start: 07-05-2021 Patient encounter procedure Hillary Tian MD Work Phone: [facility] Start: 07-05-2021 End: 07-05-2021 Subsequent hospital visit by physician Mri Main A10 (Large Bore/1.5t) Work Phone: MRI A10 Comment on above: Malignant 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, estrogen receptor positive (HCC) [C50.412, Z17.0] abnormal mammogram Start: 06-09-2021 End: 06-09-2021 Subsequent hospital visit by physician Diagnostic Mammo [facility] Mamm[facility] Comment on above: Malignant 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, estrogen receptor positive (HCC) [C50.412, Z17.0] Start: 06-08-2021 Telephone encounter Stevo Gregory MD Work Phone: General Surgery Comment on above: 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 Start: 05-21-2021 Telephone encounter Stevo Gregory MD Work Phone: General Surgery Comment on above: Surgery Questions Start: 05-18-2021 End: 05-18-2021 ambulatory Abiola Rivera MD Work Phone: Hematology/Oncology Comment on above: Malignant 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, estrogen receptor positive (HCC) (Primary Dx); 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 (1.5t) Radiology Comment on above: Malignant 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, estrogen receptor positive (HCC) [C50.412, Z17.0] Start: 11-12-2020 End: 11-12-2020 [facility] Start: 11-12-2020 End: 11-12-2020 ambulatory [facility] Start: 11-02-2020 ambulatory [facility] Start: 10-16-2020 End: 10-16-2020 ambulatory [facility] Start: 10-08-2020 End: 10-08-2020 ambulatory [facility] Start: 10-07-2020 End: 10-07-2020 ambulatory [facility] Start: 09-24-2020 End: 09-24-2020 [facility] Start: 09-04-2020 End: 09-04-2020 ambulatory WILDER GARCIA [facility] Procedures Date Procedure Procedure Detail Performing Clinician Start: 04-19-2024 Lipid 1996 panel - Serum or Plasma Katie Wang MD Work Phone: Start: 01-29-2024 BD DXA TRABECULAR BONE SCORE (TBS) Salvador Carbone MD Work Phone: Start: 01-29-2024 Dxa bone density study 1/> sites axial tiara Carbone MD Work Phone: Start: 01-09-2024 Adult depression screening assessment Wanda Nowak DATABASE SOFTWARE TECHNICIAN.EMS DRIVER Work Phone: Start: 09-13-2023 Ecg routine ecg w/least 12 lds i&r only [facility] Provider Start: 07-18-2023 Screening mammography bi 2-view breast inc cad Vanesa Cortes DATABASE SOFTWARE TECHNICIAN.EMS DRIVER Work Phone: Start: 04-11-2023 Colonoscopy flx dx w/collj spec when pfrmd Sofya Nelson PA-C Work Phone: Start: 04-11-2023 Esophagogastroduodenoscopy transoral diagnostic Sofya Nelson PA-C Work Phone: Start: 04-11-2023 Colonoscopy Stevo Gregory MD Work Phone: Start: 01-04-2023 Lipid 1996 panel - Serum or Plasma Katie Wang MD Work Phone: Start: 10-19-2022 Us breast uni real time with image limited Salvador Carbone MD Work Phone: Start: 07-11-2022 End: 07-11-2022 Mammography Vanesa Cortes DATABASE SOFTWARE TECHNICIAN.EMS DRIVER Work Phone: Start: 06-23-2022 Radex elbow complete minimum 3 views [place] DATABASE SOFTWARE TECHNICIAN.EMS DRIVER Work Phone: Start: 11-22-2021 Dxa bone density study 1/> sites axial tiara Rivera MD Work Phone: Start: 10-20-2021 CANELO DIAG W LEE ANN RIGHT Kelsie Mendoza PA-C Work Phone: Start: 09-11-2021 Adult depression screening assessment Merari Vera MARIANA Work Phone: Start: 07-13-2021 Blood count complete auto&auto difrntl wbc Abiola Rivera MD Work Phone: Start: 07-05-2021 Perq breast loc device [address] mr guid Stevo Gregory MD Work Phone: Start: 07-05-2021 Us breast uni real time with image limited Anel Tian MD Work Phone: Start: 06-09-2021 Us breast uni real time with image limited Stevo Gregory MD Work Phone: Start: 06-09-2021 Diagnostic mammography computer-aided detcj uni Stevo Gregory MD Work Phone: Start: 05-14-2021 Mri breast without&with contrast w/cad bilateral Abiola Rivera MD Work Phone: Start: 03-31-2021 Lipid 1996 panel - Serum or Plasma Katie Wang MD Work Phone: Start: 02-23-2021 Adult depression screening assessment Mri (1.5t) Plan of Treatment Date Care Activity Detail Author Start: 04-11-2033 Screening for malignant neoplasm of colon [facility] Start: 2032 RSV Vaccine (1 - 1-dose 75+ series) RSV Vaccine (1 - 1-dose 75+ series) [facility] Start: 04-19-2029 Lipid panel Lipid Screening [facility] Start: 01-05-2028 Lipid 1996 panel - Serum or Plasma Lipid Screening [facility] Start: 01-05-2028 Lipid panel Lipid Screening [facility] Start: 04-19-2027 Diabetes Screening Diabetes Screening [facility] Start: 11-02-2026 Diabetes Screening Diabetes Screening [facility] Start: 05-18-2026 Diabetes Screening Diabetes Screening [facility] Start: 03-31-2026 Lipid 1996 panel - Serum or Plasma Lipid Screening [facility] Start: 03-31-2026 LIPID SCREEN LIPID SCREEN [facility] Start: 01-24-2026 Screening for malignant neoplasm of colon [facility] Start: 01-04-2026 Diabetes Screening Diabetes Screening [facility] Start: 11-29-2025 Diabetes Screening Diabetes Screening [facility] Start: 06-14-2025 DIABETES SCREEN DIABETES SCREEN [facility] Start: 06-14-2025 Diabetes Screening Diabetes Screening [facility] Start: 04-19-2025 Hepatitis B surface antibody level LDL Cholesterol [facility] Start: 01-31-2025 End: 01-31-2025 ambulatory Hematology/Oncolog y Comment on above: 1YR OV/CANELO 07/18* 1YR OV* Start: 01-10-2025 End: 01-10-2025 Patient encounter procedure 01/10/2025 10:00 AM EST Office Visit [facility] [place] [address] [place], [place] [id number] Wanda Nowak, DATABASE SOFTWARE TECHNICIAN.EMS DRIVER [address] [facility] [place] [address] Medicare Wellness [facility] [place] Comment on above: Medicare Wellness Start: 01-08-2025 Annual PCP Team Chronic Disease Visit Annual PCP Team Chronic Disease Visit [facility] Start: 01-08-2025 Anxiety Screening Anxiety Screening [facility] Start: 01-08-2025 Covid-19 Vaccine () Covid-19 Vaccine () [facility] Comment on above: Postponed from 10/22/2023 (Declined at t his time) Start: 01-08-2025 Depression Screening Depression Screening [facility] Start: 01-08-2025 Medicare Annual Wellness Visit Medicare Annual Wellness Visit [facility] Start: 01-08-2025 Pneumococcal Vaccine: 50+ (1 of 1 - PCV) Pneumococcal Vaccine: 50+ (1 of 1 - PCV) [facility] Comment on above: Postponed from 05/01/2007 (Declined at t his time) Start: 01-08-2025 Pneumococcal Vaccine: 50+ (1 of 2 - PCV) Pneumococcal Vaccine: 50+ (1 of 2 - PCV) [facility] Comment on above: Postponed from 1976 (Declined at t his time) Start: 01-08-2025 Pneumococcal Vaccine: 65+ (1 of 1 - PCV) Pneumococcal Vaccine: 65+ (1 of 1 - PCV) [facility] Comment on above: Postponed from 2022 (Declined at t his time) Start: 01-08-2025 Shingrix Vaccine (1 of 2) Shingrix Vaccine (1 of 2) [facility] Comment on above: Postponed from 05/01/2007 (Declined at t his time) Postponed from 04/30 (Declined at this time) Start: 01-08-2025 Urine microalbumin profile DTaP,Tdap,Td Vaccine (1 - Tdap) [facility] Comment on above: Postponed from 1976 (Declined at t his time) Start: 12-23-2024 End: 12-23-2024 Patient encounter procedure Cat Scan Comment on above: CT LUNG EST LUNG SCREENING Start: 12-17-2024 Screening for malignant neoplasm of lung Lung Cancer Screening [facility] Start: 12-08-2024 DIABETES SCREEN DIABETES SCREEN [facility] Start: 11-30-2024 DIABETES SCREEN DIABETES SCREEN [facility] Start: 10-24-2024 End: 10-24-2024 Patient encounter procedure 10/24/2024 11:10 AM EDT Appointment Mammogram [address] [place] [address] Mammogram Start: 10-21-2024 End: 01-16-2025 CT Chest for screening WO contrast CT LUNG SCREEN WO IVCON Radiology Routine Former tobacco use Encounter for screening for lung cancer Expected: 10/21/2024 (Approximate), Expires: 01/16/2025 [facility] Work Phone: Comment on above: Expected: 10/21/2024 (Approximate), Expi res: 01/16/2025 Start: 10-21-2024 Influenza vaccination Influenza Vaccine (#1) [facility] Start: 10-04-2024 End: 10-04-2024 ambulatory [facility] Comment on above: (SO)BMP(S) 2nd Start: 08-19-2024 Influenza vaccination Influenza Vaccine (#1) [facility] Comment on above: Postponed from 10/22/2023 (Declined at t his time) Start: 07-18-2024 End: 07-18-2024 Patient encounter procedure 07/18/2024 10:10 AM EDT Appointment Mammogram [address] [place] [address] Encounter for screening mammogram for high-risk patient [Z12.31] Mammogram Comment on above: Encounter for screening mammogram for hi gh-risk patient [Z12.31] Start: 07-17-2024 Screening for malignant neoplasm of breast Mammogram Screening [facility] Start: 07-13-2024 DIABETES SCREEN DIABETES SCREEN [facility] Start: 06-11-2024 Screening for malignant neoplasm of lung Lung Cancer Screening [facility] Start: 05-18-2024 DIABETES SCREEN DIABETES SCREEN [facility] Start: 2024 DIABETES SCREEN DIABETES SCREEN [facility] Start: 04-24-2024 Annual PCP Team Chronic Disease Visit Annual PCP Team Chronic Disease Visit [facility] Start: 04-22-2024 End: 04-22-2024 Patient encounter procedure 04/22/2024 1:20 PM EST Office Visit [facility] [place] [address] [place], [place] [id number] Wanda Nowak, DATABASE SOFTWARE TECHNICIAN.EMS DRIVER [address] [facility] [place] [address] follow up on carotid scan [facility] [place] Comment on above: follow up on carotid scan Start: 04-19-2024 End: 07-19-2024 Lipid 1996 panel - Serum or Plasma LIPID PANEL BASIC Lab Routine Pure hypercholesterolemia Expected: 04/19/2024, Expires: 07/19/2024 [facility] Work Phone: Comment on above: Expected: 04/19/2024, Expires: Start: 04-19-2024 End: 04-19-2024 [facility]ulatory [facility] Comment on above: (SO)BMP(S) 2nd Start: 04-11-2024 Screening for malignant neoplasm of colon Colonoscopy [facility] Start: 03-26-2024 End: 03-26-2024 Patient encounter procedure [facility] Comment on above: Hollenhorst plaque, 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] follow-up - HTN Start: 03-17-2024 Screening for malignant neoplasm of lung Lung Cancer Screening [facility] Start: 03-01-2024 End: 03-01-2024 Patient encounter procedure 03/01/2024 11:00 AM EST Office Visit Vasculary Surgery [address] [place] [address] Hollenhorst plaque, 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] [facility] Comment on above: Hollenhorst plaque, 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] Start: 02-23-2024 End: 02-23-2024 Patient encounter procedure 02/23/2024 9:15 AM EST Office Visit Podiatry [address] [place] [address] Willem Cruz [address] [address] Closed nondisplaced fracture of fifth metatarsal bone of left foot, initial encounter [S92.355A] Podiatry Comment on above: Closed nondisplaced fracture of fifth me tatarsal bone of left foot, initial encounter [S92.355A] Start: 02-21-2024 Advance Directive Discussion Advance Directive Discussion [facility] Start: 02-01-2024 End: 02-01-2024 ambulatory 02/01/2024 9:00 AM EST Visit (SP) Office Hematology/Oncology [address] [place] [address] [place] [address] [place] [address] OV/BONE DENSITY 01/28* Hematology/Oncolog y Comment on above: OV/BONE DENSITY 01/28* Start: 01-29-2024 End: 01-29-2024 Patient encounter procedure 01/29/2024 12:30 PM EST Appointment Radiology [address] [place] [id number] D[facility]-AXIAL S[facility] Radiology Comment on above: DXA-AXIAL SKELETON Start: 01-09-2024 End: 04-09-2024 Lipid 1996 panel - Serum or Plasma LIPID PANEL BASIC Lab Routine Coronary artery calcification seen on CAT scan Expected: 01/09/2024, Expires: 04/09/2024 [facility] Work Phone: Comment on above: Expected: 01/09/2024, Expires: Start: 01-09-2024 End: 01-09-2024 Patient encounter procedure 01/09/2024 10:00 AM EST Office Visit [facility] [place] [address] [place], [place] [id number] Wanda Nowak, DATABASE SOFTWARE TECHNICIAN.EMS DRIVER [address] [facility] [place] [address] [employer] [facility] [place] Comment on above: [employer] Start: 01-05-2024 Annual PCP Team Chronic Disease Visit Annual PCP Team Chronic Disease Visit [facility] Start: 01-05-2024 Covid-19 Vaccine (2022- season) Covid-19 Vaccine ( season) [facility] Comment on above: Postponed from 10/21/2022 (Declined at t his time) Start: 01-05-2024 Hepatitis B surface antibody level LDL Cholesterol [facility] Start: 01-05-2024 Pneumococcal Vaccine: 65+ (1 - PCV) Pneumococcal Vaccine: 65+ (1 - PCV) [facility] Comment on above: Postponed from [birth year]/01/1963 (Declined at t his time) Start: 01-05-2024 Pneumococcal Vaccine: 65+ (1 of 1 - PCV) Pneumococcal Vaccine: 65+ (1 of 1 - PCV) [facility] Comment on above: Postponed from 2022 (Declined at t his time) Start: 01-05-2024 Pneumococcal Vaccine: 65+ (1 of 2 - PCV) Pneumococcal Vaccine: 65+ (1 of 2 - PCV) [facility] Comment on above: Postponed from 05/01/1963 (Declined at t his time) Start: 01-05-2024 RSV Vaccine (1 - 1-dose 60+ series) RSV Vaccine (1 - 1-dose 60+ series) [facility] Comment on above: Postponed from 2017 (Declined at t his time) Start: 01-05-2024 Shingrix Vaccine (1 of 2) Shingrix Vaccine (1 of 2) [facility] Comment on above: Postponed from 05/01/2007 (Declined at t his time) Start: 01-05-2024 Urine microalbumin profile DTaP,Tdap,Td Vaccine (1 - Tdap) [facility] Comment on above: Postponed from 1976 (Declined at t his time) Start: 12-19-2023 End: 12-19-2023 ambulatory 12/19/2023 8:40 AM EDT Visit (SP) Office Hematology/Oncology [address] [place] [address] [place] [address] [place] [address] Bone Dentisy on 12/11/23 OV F/U * Hematology/Oncolog y Comment on above: Bone Dentisy on 12/11/23 OV F/U * Start: 12-18-2023 End: 12-18-2023 Patient encounter procedure Cat Scan Comment on above: 6 month LDCT 6 month LCS Start: 12-11-2023 End: 12-11-2023 Patient encounter procedure Radiology Comment on above: Osteopenia after menopause [M85.80, Z78. 0] Start: 11-03-2023 End: 11-03-2023 ambulatory [facility] Comment on above: (SO)BMP(S) Q6MO ZOMETA/LAB KIRSTEN Y/MDCR* no later than 230 w/labs 2nd Start: 10-22-2023 Covid-19 Vaccine ( season) Covid-19 Vaccine ( season) [facility] Start: 10-22-2023 Covid-19 Vaccine ( season) Covid-19 Vaccine ( season) [facility] Start: 10-22-2023 Influenza vaccination [facility] Start: 09-13-2023 End: 09-13-2023 Patient encounter procedure 09/13/2023 11:20 AM EDT Office Visit Cardiology [address] [address] Steven Anaya DO [address] [place] [address] Coronary artery calcification seen on CAT scan [I25.10] Cardiology Comment on above: Coronary artery calcification seen on CA T scan [I25.10] Start: 08-20-2023 Influenza vaccination Influenza Vaccine (#1) [facility] Comment on above: Postponed from 10/21/2022 (Declined at t his time) Start: 07-18-2023 End: 07-18-2023 Patient encounter procedure 07/18/2023 9:10 AM EDT Appointment Mammogram [address] [place] [address] Malignant neoplasm of upper-outer quadrant of left breast in female, estrogen receptor positive (HCC) [C50.412, Z17.0] Mammogram Comment on above: Malignant neoplasm of upper-outer quadra nt of left breast in female, estrogen receptor positive (HCC) [C50.412, Z17.0] Start: 07-12-2023 Mammography [facility] Start: 07-12-2023 Screening for malignant neoplasm of breast Mammogram Screening [facility] Start: 06-27-2023 End: 06-27-2023 Patient encounter procedure 06/27/2023 8:40 AM EDT Office Visit [facility] [place] [address] [place] [address] Ronn Wang MD [address] [place] [address] 2 month follow-up Internal Medicine [facility] Comment on above: 2 month follow-up Start: 03-08-2023 End: 06-07-2023 Lipid 1996 panel - Serum or Plasma LIPID PANEL BASIC Lab Routine Pure hypercholesterolemia Expected: 03/08/2023, Expires: 06/07/2023 [facility] Work Phone: Comment on above: Expected: 03/08/2023, Expires: Start: 02-20-2023 Advance Directive Discussion Advance Directive Discussion [facility] Start: 02-20-2023 Behavioral Health Screening Behavioral Health Screening [facility] Start: 02-20-2023 Depression Assessment Depression Assessment [facility] Start: 01-04-2023 End: 02-14-2024 25-hydroxyvitamin D3 [Mass/volume] in Serum or Plasma [facility] Work Phone: Comment on above: Expected: 01/04/2023, Expires: 4 Start: 01-04-2023 End: 04-05-2023 Comprehensive metabolic 2000 panel - Serum or Plasma [facility] Work Phone: Comment on above: Expected: 01/04/2023, Expires: 4 Start: 01-04-2023 End: 04-05-2023 Lipid 1996 panel - Serum or Plasma [facility] Work Phone: Comment on above: Expected: 01/04/2023, Expires: 4 Start: 11-01-2022 End: 01-01-2023 25-hydroxyvitamin D3 [Mass/volume] in Serum or Plasma VITAMIN D 25 HYDROXY Lab Routine Vitamin D deficiency Expected: 11/01/2022, Expires: 01/01/2023 [facility] Work Phone: Comment on above: Expected: 11/01/2022, Expires: 3 Start: 11-01-2022 End: 01-01-2023 Hemoglobin A1c in Blood HGB A1C Lab Routine Impaired glucose metabolism Expected: 11/01/2022, Expires: 01/01/2023 [facility] Work Phone: Comment on above: Expected: 11/01/2022, Expires: 3 Start: 11-01-2022 End: 01-01-2023 Lipid 1996 panel - Serum or Plasma LIPID PANEL BASIC Lab Routine Encounter for lipid screening for cardiovascular disease Expected: 11/01/2022, Expires: 01/01/2023 [facility] Work Phone: Comment on above: Expected: 11/01/2022, Expires: 3 Start: 10-21-2022 Covid-19 Vaccine () Covid-19 Vaccine () [facility] Start: 10-21-2022 Influenza vaccination [facility] Start: 09-11-2022 Adult depression screening assessment DEPRESSION SCREENING [facility] Start: 07-04-2022 End: 09-03-2022 Bacteria identified in Urine by Culture [facility] Work Phone: Comment on above: Expected: 07/04/2022, Expires: Start: 2022 ADVANCE DIRECTIVE DISCUSSION ADVANCE DIRECTIVE DISCUSSION [facility] Start: 02-23-2022 Adult depression screening assessment DEPRESSION SCREENING [facility] Start: 02-20-2022 DEPRESSION ASSESSMENT DEPRESSION ASSESSMENT [facility] Start: 10-21-2021 Influenza vaccination [facility] Start: 06-30-2021 COVID-19 VACCINE (3 - Booster for Pfizer series) COVID-19 VACCINE (3 - Booster for Pfizer series) [facility] Start: 06-30-2021 COVID-19 VACCINE (3 - Pfizer series) COVID-19 VACCINE (3 - Pfizer series) [facility] Start: 06-02-2021 COVID-19 VACCINE (3 - Pfizer risk 4-dose series) COVID-19 VACCINE (3 - Pfizer risk 4-dose series) [facility] Start: 06-02-2021 COVID-19 VACCINE (3 - Pfizer risk series) COVID-19 VACCINE (3 - Pfizer risk series) [facility] Start: 02-20-2021 DEPRESSION ASSESSMENT DEPRESSION ASSESSMENT [facility] Start: 10-21-2020 Influenza vaccination INFLUENZA (#1) [facility] Start: 2017 RSV Vaccine (1 - 1-dose 60+ series) RSV Vaccine (1 - 1-dose 60+ series) [facility] Start: 2017 RSV Vaccine (1 - Risk 60-74 years 1-dose series) RSV Vaccine (1 - Risk 60-74 years 1-dose series) [facility] Start: 2012 Influenza vaccination LUNG CANCER SCREENING [facility] Start: 05-01-2007 Influenza vaccination LUNG CANCER SCREENING [facility] Start: 05-01-2007 Screening for malignant neoplasm of lung Lung Cancer Screening [facility] Start: 05-01-2007 SHINGRIX VACCINE (1 of 2) SHINGRIX VACCINE (1 of 2) [facility] Start: 2002 COLOGUARD (FIT-DNA) COLOGUARD (FIT-DNA) [facility] Start: 2002 Colonoscopy COLONOSCOPY [facility] Start: 2002 COLORECTAL CANCER SCREENING COLORECTAL CANCER SCREENING [facility] Start: [address] COLONOGRAPHY [facility] Start: 2002 FECAL OCCULT BLOOD FECAL OCCULT BLOOD [facility] Start: 2002 Screening for malignant neoplasm of colon [facility] Start: 2002 SIGMOIDOSCOPY SIGMOIDOSCOPY [facility] Start: 1997 Mammography MAMMOGRAM [facility] Start: 05-01-1987 HPV TESTING HPV TESTING [facility] Start: 1978 PAP TESTING PAP TESTING [facility] Start: 1976 ONE PNEUMOVAX PRIOR TO AGE 65 ONE PNEUMOVAX PRIOR TO AGE 65 [facility] Start: 1976 SHINGRIX VACCINE (1 of 2) SHINGRIX VACCINE (1 of 2) [facility] Start: 1976 Urine microalbumin profile [facility] Start: 05-01-1975 Anxiety Screening Anxiety Screening [facility] Start: 05-01-1975 Depression Screening Depression Screening [facility] Start: 05-01-1963 PNEUMOCOCCAL (1 - PCV) PNEUMOCOCCAL (1 - PCV) [facility] Start: 05-01-1963 Pneumococcal Vaccine: 65+ (1 - PCV) Pneumococcal Vaccine: 65+ (1 - PCV) [facility] Start: 05-01-1963 PNEUMOCOCCAL: 65+ (1 - PCV) PNEUMOCOCCAL: 65+ (1 - PCV) [facility] End: 07-05-2021 Bx breast w/device 1st lesion magnetic res guid MRI BREAST BX WO/W IVCON LT Radiology Routine Malignant neoplasm of upper-outer quadrant of left breast in female, estrogen receptor positive (HCC) 1 Occurrences starting 07/05/2021 until 07/05/2021 [facility] Work Phone: Comment on above: 1 Occurrences starting 07/05/2021 until 07/05/2021 COLOGUARD COLOGUARD Lab Ro utine Colon cancer screening Ordered: 01/04/2023 [facility] Work Phone: Comment on above: Ordered: 01/04/2023 End: 07-11-2024 CT Lung parenchyma WO contrast CT LUNG FOLLOWUP WO IVCON Radiology Routine 1 Occurrences starting 06/12/2023 until 07/11/2024 [facility] Work Phone: Comment on above: 1 Occurrences starting 06/12/2023 until 07/11/2024 CT Lung parenchyma W O contrast CT LUNG FOLLOWUP WO IVCON Radiology Routine Lung nodules 06/12/2023 11:21 AM EDT [facility] Work Phone: CT Lung parenchyma W O contrast CT LUNG FOLLOWUP WO IVCON Radiology Routine 12/18/2023 10:06 AM EDT [facility] Work Phone: End: 02-23-2024 CT LUNG SCREEN WO IVCON CT LUNG SCREEN WO IVCON Radiology Routine Tobacco use current 1 Occurrences starting 01/24/2023 until 02/23/2024 [facility] Work Phone: Comment on above: 1 Occurrences starting 01/24/2023 until 02/23/2024 CT SIM PLANNING RADIATION ONCOLOGY CT SIM PLANNING RADIATION ONCOLOGY Radiology Routine Malignant neoplasm of upper-outer quadrant of left breast in female, estrogen receptor positive (HCC) Ordered: 10/15/2021 [facility] Work Phone: Comment on above: Ordered: 10/15/2021 Diagnostic mammograp hy computer-aided detcj uni CANELO DIAGNOSTIC LT Radiology Routine Malignant neoplasm of upper-outer quadrant of left breast in female, estrogen receptor positive (HCC) Ordered: 06/08/2021 [facility] Work Phone: Comment on above: Ordered: 06/08/2021 End: 10-08-2022 Diagnostic mammography computer-aided detcj uni CANELO DIAGNOSTIC RT Radiology Routine Personal history of breast cancer Breast cancer screening, high risk patient 1 Occurrences starting 09/08/2021 until 10/08/2022 [facility] Work Phone: Comment on above: 1 Occurrences starting 09/08/2021 until 10/08/2022 End: 10-13-2022 Dxa bone density study 1/> sites axial skel DXA-AXIAL SKELETON Radiology Routine Malignant neoplasm of upper-outer quadrant of left breast in female, estrogen receptor positive (HCC) Vitamin D deficiency 1 Occurrences starting 09/13/2021 until 10/13/2022 [facility] Work Phone: Comment on above: 1 Occurrences starting 09/13/2021 until 10/13/2022 ECG COMPLETE ECG COMPLETE ECG 09/13/2023 10:53 AM EDT [facility] End: 10-14-2023 CANELO DIAGNOSTIC LEFT CANELO DIAGNOSTIC LEFT Radiolog y Routine Left axillary pain Mastodynia 1 Occurrences starting 09/14/2022 until 10/14/2023 [facility] Work Phone: Comment on above: 1 Occurrences starting 09/14/2022 until 10/14/2023 End: 07-14-2023 CANELO SCREENING CANELO SCREENING Radiology Routine Malignant neoplasm of upper-outer quadrant of left breast in female, estrogen receptor positive (HCC) Encounter for screening mammogram for high-risk patient 1 Occurrences starting 06/14/2022 until 07/14/2023 [facility] Work Phone: Comment on above: 1 Occurrences starting 06/14/2022 until 07/14/2023 End: 12-29-2023 CANELO SCREENING CANELO SCREENING Radiology Routine Malignant neoplasm of upper-outer quadrant of left breast in female, estrogen receptor positive (HCC) Encounter for screening mammogram for high-risk patient 1 Occurrences starting 11/29/2022 until 12/29/2023 [facility] Work Phone: Comment on above: 1 Occurrences starting 11/29/2022 until 12/29/2023 End: 03-02-2025 MG Breast Screening CANELO SCREENING Radiology Routine Encounter for screening mammogram for high-risk patient 1 Occurrences starting 02/01/2024 until 03/02/2025 [facility] Work Phone: Comment on above: 1 Occurrences starting 02/01/2024 until 03/02/2025 OUTSIDE SURG PATH SLIDE REVIEW OUTSIDE SURG PATH SLIDE REVIEW Lab Routine Ordered: 09/08/2021 [facility] Work Phone: Comment on above: Ordered: 09/08/2021 REFERRAL FOR ADDITIONAL BIOMARKER AND MOLECULAR TESTING REFERRAL FOR ADDITIONAL BIOMARKER AND MOLECULAR TESTING Lab Routine Malignant neoplasm of upper-outer quadrant of left breast in female, estrogen receptor positive (HCC) 10/07/2021 9:01 AM EDT [facility] Work Phone: SURGICAL PATHOLOGY [facility] Work Phone: Comment on above: Release Upon Ordering for 1 Occurrences starting 04/11/2023, 1 completed Us breast uni real time with image limited US BREAST LTD LT Radiology Routine Breast disorder 07/05/2021 11:54 AM EDT [facility] Work Phone: End: 01-31-2025 US Carotid arteries - bilateral US CAROTID ARTERIES [facility] Vascular Lab Routine Hollenhorst plaque, right eye 1 Occurrences starting 02/01/2024 until 01/31/2025 [facility] Work Phone: Comment on above: 1 Occurrences starting 02/01/2024 until 01/31/2025 End: 02-07-2025 XR Foot - left AP and Lateral and oblique XR FOOT GENERAL 3V AP/LAT/OBL LEFT Radiology Routine Foot injury, left, initial encounter Left foot pain 1 Occurrences starting 01/09/2024 until 02/07/2025 [facility] Comment on above: 1 Occurrences starting 01/09/2024 until 02/07/2025 XR Foot - left AP an d Lateral and oblique XR FOOT GENERAL 3V AP/LAT/OBL LEFT Radiology Routine Foot injury, left, initial encounter Left foot pain 01/09/2024 11:25 AM EST [facility] End: 02-03-2024 XR SHOULDER GENERAL 3V OR MORE AP/TRUE AP/OTHER LEFT XR SHOULDER GENERAL 3V OR MORE AP/TRUE AP/OTHER LEFT Radiology Routine Chronic pain of both shoulders 1 Occurrences starting 01/04/2023 until 02/03/2024 [facility] Work Phone: Comment on above: 1 Occurrences starting 01/04/2023 until 02/03/2024 End: 02-03-2024 XR SHOULDER GENERAL 3V OR MORE AP/TRUE AP/OTHER RIGHT XR SHOULDER GENERAL 3V OR MORE AP/TRUE AP/OTHER RIGHT Radiology Routine Chronic pain of both shoulders 1 Occurrences starting 01/04/2023 until 02/03/2024 [facility] Work Phone: Comment on above: 1 Occurrences starting 01/04/2023 until 02/03/2024 [facility] Payers Date Payer Category Payer [facility] DICARE SUPPLEMENT [id number] 2022 Medicare [id number] 2022 Medicare [id number] 2022 Medicare [id number] 2020 Unknown [id number] 2020 Unknown [employer] PPO [id number] 2020-Present [phone] [address] [place] [address] PPO [id number] 2020 Unknown [id number] 1957 Unknown [id number] 1957 Unknown [id number] 1957 Unknown [id number] 1957 Unknown [id number] 1957 Unknown [id number] 1957 Unknown [id number] 1957 Unknown [id number] Social History Date Type Detail Facility Start: 01-12-2021 End: 10-20-2021 Tobacco smoking status NHIS Smokes tobacco daily [facility] Start: 05-13-1978 End: 05-14-2023 History of tobacco use Cigarette Smoker [facility] Start: 01-12-2021 End: 12-18-2023 Cigarettes smoked current (pack per day) - Reported 1 [facility] Work Phone: Start: 01-12-2021 End: 12-18-2023 Tobacco use and exposure Smokeless tobacco non-user [facility] Start: 05-18-2021 End: 01-09-2024 Alcohol intake Lifetime non-drinker (finding) [facility] Start: 03-31-2021 History SDOH Alcohol Frequency 1 [facility] Start: 03-31-2021 History SDOH Alcohol Comment rare 1 drink [facility] [facility]: [facility]21 End: 10-20-2021 Tobacco Comment Pt has cut back to 1/4 pack daily. [facility] Start: 1955 Sex Assigned At Female [facility] Start: 05-04-2021 End: 11-16-2021 Exposure to SARS-CoV-2 (event) Not sure [facility] Start: 11-13-2021 End: 11-23-2021 Exposure to SARS-CoV-2 (event) Yes [facility] Start: 03-31-2021 End: 12-18-2023 Alcohol Use Disorder Identification Test - Consumption [AUDIT-C] [facility] Work Phone: How often to you hav e a drink containing alcohol? Monthly or less [facility] Work Phone: How many standard dr inks containing alcohol do you have on a typical day? 1 or 2 [facility] Work Phone: How often do you hav e 6 or more drinks on 1 occasion? Never [facility] Work Phone: Start: 10-20-2020 Adult Depression Screening Assessment 0 [facility] Start: 01-07-2021 Gender identity Identifies as female gender (finding) [facility] Has the [employer], [employer], or [employer] threatened to shut off services in your home in past 12Mo No [facility] Are you now , , , , never or living with a partner? Refused [facility] How hard is it for y ou to pay for the very basics like food, housing, medical care, and heating Not very hard [facility] Do you feel stress - tense, restless, nervous, or anxious, or unable to sleep at night because your mind is troubled all the time - these days [OSQ] Not at all [facility] (I/We) worried carlo er (my/our) food would run out before (I/we) got money to buy more. Never true [facility] Start: 06-12-2023 End: 12-18-2023 Tobacco smoking status NHIS Ex-smoker [facility] Start: 05-13-1976 End: 05-14-2023 History of tobacco use Current smoker [facility] Start: 02-01-2024 Alcoholic beverage intake Current drinker of alcohol (finding) [facility] Medical Equipment Procedure Code Equipment Code Equipment Origin al Text Equipment Identifier Dates [facility] 8fr Plastic Polyurethane Implantable Infusion - [id number] Start: 01-18-2021 Ultrasound [place] t Clip [id number] Start: 07-05-2021 Comment on above: Description: X clip Clinical Notes 01-18-2021 to 10-23-2024 Harpreet Tran MA - 10/23/2024 12:46 PM EDTTelephone Encounter - Cecile Chandler Rossana - 04/22/2024 8:19 AM ESTTelephone Encounter - Cecile Geraldine Rosasna - 04/22/2024 8:19 AM EST Note Date & Type Note Facility 10-23-2024 Note HNO ID: [id number] Author: HARPREET TRAN MA Service: ? Author Type: Dial Brusher Type: Progress Notes Filed: 10/23/2024 12:48 Note Text: POPULATION HEALTH NAVIGATION OUTREACH Action/FYI Updated appointment note, HCC CLOSURE Topic Due (Y or N) Comments Medicare Wellness Y PCP Follow up Colorectal Cancer Screening Controlling Blood Pressure A1C HCC Y Flu Vaccine Care Everywhere Reviewed MyChart Activation Updated Appointment Note Reason for Outreach Care Gap/HCC or Scheduling Wellness Visits Care Gaps due: Medicare Annual Wellness Visit Patient Contacted: Unable or unnecessary to reach patient: HCC related Patient already scheduled Updated appointment notes Navigation Signature: Harpreet Tran MA October 23, 2024 12:46 PM [facility] 10-23-2024 History of Present illness Narrative POPULATION HEALTH NAVIGATION OUTREACH Action/FYI Updated appointment note, HCC CLOSURE Topic Due (Y or N) Comments Medicare Wellness Y PCP Follow up Colorectal Cancer Screening Controlling Blood Pressure A1C HCC Y Flu Vaccine Care Everywhere Reviewed MyChart Activation Updated Appointment Note Reason for Outreach Care Gap/HCC or Scheduling Wellness Visits Care Gaps due: Medicare Annual Wellness Visit Patient Contacted: Unable or unnecessary to reach patient: HCC related Patient already scheduled Updated appointment notes Navigation Signature: Harpreet Tran MA October 23, 2024 12:46 PM documented in this encounter [facility] 10-23-2024 Note Patient Outreach (NE TNAV) ELIDA PENALOZA ([id number]) 1955 F Date Time Provider Department 10/23/24 HARPREET TRAN NETNAV During your visit today, we recorded the following information about you: Harpreet Tran MA 10/23/2024 12:48 PM Signed POPULATION HEALTH NAVIGATION OUTREACH Action/FYI Updated appointment note, HCC CLOSURE Topic Due (Y or N) Comments Medicare Wellness Y PCP Follow up Colorectal Cancer Screening Controlling Blood Pressure A1C HCC Y Flu Vaccine Care Everywhere Reviewed MyChart Activation Updated Appointment Note Reason for Outreach Care Gap/HCC or Scheduling Wellness Visits Care Gaps due: Medicare Annual Wellness Visit Patient Contacted: Unable or unnecessary to reach patient: HCC related Patient already scheduled Updated appointment notes Navigation Signature: Harpreet Tran MA October 23, 2024 12:46 PM Allergies As of Date: 10/23/2024 Noted Allergy Reaction COVID-19 (SARS-COV-2) VACCINE, VE*05/18/2021 4 - Hives Date Reviewed: 04/19/2024 Reviewed by: Petty Leone RN - Fully Assessed Reason for Visit: Population Health Navigation Outreach [3910] Cmt: JORGE L KAPOOR PCSA Prescriptions as of 10/23/2024 - letrozole (FEMARA) 2.5 mg tablet Take 1 tablet by mouth once daily. - MELATONIN ORAL Take 1 tablet by mouth at bedtime as needed. 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 no*08/08/2021 Breast cancer in female (HCC) [C50.919] 09/02/2021 Osteopenia after menopause [M85.80, Z78.0] 11/30/2021 Pure hypercholesterolemia [E78.00] 01/05/2023 Chronic pain of both shoulders [M25.511, G89.29*01/27/2023 Positive colorectal cancer screening using [place]*02/02/2023 04/25/2023 Coronary artery calcification seen on CAT scan *03/22/2023 PVC (premature ventricular contraction) [I49.3] 09/13/2023 Encounter Status:Closed by HARPREET TRAN on 10/23/24 [facility] 04-22-2024 Telephone encounter Note Relayed message [facility] Work Phone: 04-22-2024 Miscellaneous Notes Relayed message Lvm for patient to return the call. When patient calls back please inform the below information. 10/04 appointment has been cancelled Liz Adame Per Dr. Carbone note 02/01/24. RECOMMENDATION/PLAN: 1. Plan letrozole 5-7 years (through at least November 2026) 2. See back 1 year. 3. Final zometa March 2024 Please cancel 10/04/24 lab/Zometa and no further need scheduled. Keep all other appointments as scheduled. Mary Ann Babb, DAVID Patient stated at her last visit she was told she only had to complete 1 more treatment. Patient is scheduled 04/19 and again on October 04 Please advise Liz Adame documented in this encounter [facility] 04-19-2024 Telephone encounter Note Lvm for patient to return the call. When patient calls back please inform the below information. 10/04 appointment has been cancelled Liz Adame [facility] 04-19-2024 Telephone encounter Note Per Dr. Carbone note 02/01/24. RECOMMENDATION/PLAN: 1. Plan letrozole 5-7 years (through at least November 2026) 2. See back 1 year. 3. Final zometa March 2024 Please cancel 10/04/24 lab/Zometa and no further need scheduled. Keep all other appointments as scheduled. Mary Ann Babb RN [facility] Work Phone: 04-19-2024 Telephone encounter Note Patient stated at her last visit she was told she only had to complete 1 more treatment. Patient is scheduled 04/19 and again on October 04 Please advise Liz Adame [facility] 03-04-2024 Note HNO ID: [id number] Author: FANNIE TRUNOG LPN Service: ? Author Type: LICENSED NURSE Type: Progress Notes Filed: 03/04/2024 19:15 Note Text: POPULATION HEALTH NAVIGATION OUTREACH Action/FYI Scheduled follow-up appt - HTN Patient reports that she stopped smoking, has noticed BP has been coming down, agreed to come in for an appt to recheck BP Reason for Outreach Care Gap/HCC or Scheduling Wellness Visits Care Gaps due: Follow-up Appointment Patient Contacted: Spoke to patient/parent/or legal guardian Patient identified by name and : Yes Care Gap/HCC/Scheduling Wellness actions taken: PCP confirmed Navigation Signature: Fannie Truong LPN March 04, 2024 7:09 PM [facility] 03-04-2024 History of Present illness Narrative POPULATION HEALTH NAVIGATION OUTREACH Action/FYI Scheduled follow-up appt - HTN Patient reports that she stopped smoking, has noticed BP has been coming down, agreed to come in for an appt to recheck BP Reason for Outreach Care Gap/HCC or Scheduling Wellness Visits Care Gaps due: Follow-up Appointment Patient Contacted: Spoke to patient/parent/or legal guardian Patient identified by name and : Yes Care Gap/HCC/Scheduling Wellness actions taken: PCP confirmed Navigation Signature: Fannie Truong LPN March 04, 2024 7:09 PM documented in this encounter [facility] 03-01-2024 Telephone encounter Note Prescription Refill Information The patient has been identified by name and date of : Yes Caregiver verified no other encounters exist for this prescription request: Yes Caregiver confirmed with patient/requestor that no other refills are due, in the near future, with this provider at this time: Yes The last office visit in the department: 02/01/24 Does the patient have a future office visit with this provider/department: Yes Requested Prescriptions Pending Prescriptions Disp Refills letrozole (FEMARA) 2.5 mg tablet 90 tablet 3 Sig: Take 1 tablet by mouth once daily. Marley Haq March 01, 2024 9:52 AM [facility] 03-01-2024 Miscellaneous Notes Prescription Refill Information The patient has been identified by name and date of : Yes Caregiver verified no other encounters exist for this prescription request: Yes Caregiver confirmed with patient/requestor that no other refills are due, in the near future, with this provider at this time: Yes The last office visit in the department: 02/01/24 Does the patient have a future office visit with this provider/department: Yes Requested Prescriptions Pending Prescriptions Disp Refills letrozole (FEMARA) 2.5 mg tablet 90 tablet 3 Sig: Take 1 tablet by mouth once daily. Marley Haq March 01, 2024 9:52 AM documented in this encounter [facility] 02-02-2024 Telephone encounter Note Patient is scheduled Dimple Jorge MA [facility] 02-02-2024 Miscellaneous Notes Patient is scheduled Dimple Jorge MA Patient notified, PSS please reach out to Patient to schedule. Fannie Truong LPN ASSESSMENT/PLAN: 1. 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 Damon haas, states that she was doing an eye exam and patient has plaque in the retinal vessels in her right eye. She is not having any symptoms but it is recommended that she have a full stroke work up with a Carotid doppler. Patient asked that everything go through PCP office. Once their report is completed they will fax to our office. Patient expecting a call from PCP office with next steps. Please advise. documented in this encounter [facility] 02-01-2024 Telephone encounter Note Patient notified, PSS please reach out to Patient to schedule. Fannie Truong LPN [facility] 02-01-2024 Telephone encounter Note ASSESSMENT/PLAN: 1. 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 Damon haas, states that she was doing an eye exam and patient has plaque in the retinal vessels in her right eye. She is not having any symptoms but it is recommended that she have a full stroke work up with a Carotid doppler. Patient asked that everything go through PCP office. Once their report is completed they will fax to our office. Patient expecting a call from PCP office with next steps. Please advise. [facility] 02-01-2024 Note HNO ID: [id number] Author: SALVADOR CARBONE MD Service: ? Author Type: Physician Type: Progress Notes Filed: 02/01/2024 11:28 Note Text: (Elements copied from my note dated March 17, 2023, have been reviewed and updated where appropriate, and all reflect current assessment and medical decision making from today's encounter, February 01, 2024) HISTORY OF PRESENT ILLNESS: Elida Penaloza is a 68 year old female history left breast cancer [facility] ER+/TN+/Her2-, dx 09-04-20, had NAC with dd AC T then mastectomy. ypT1N1. On letrozole since November 2021. Notes some left arm chest discomfort Here for follow up, doing ok. Broke her foot. Dxa stable Calcium intake should be ok with her diet. CLINICAL IMPRESSION: Breast cancer as above. RECOMMENDATION/PLAN: 1. Plan letrozole 5-7 years (through at least November 2026) 2. See back 1 year. 3. Final zometa March 2024 Written and verbal health teaching given to patient, patient verbalizes understanding and agrees with treatment plan. PAST MEDICAL HISTORY Diagnosis Date Anemia 01/12/2021 Breast cancer (HCC) 09/24/2020 left breast and lymph noder Cellulitis 03/24/2021 Coronary artery calcification seen on CAT scan 03/22/2023 Helicobacter pylori gastritis 04/15/2023 Nicotine use disorder, F17.2 03/25/2021 Osteopenia Positive colorectal cancer screening using Cologuard test 02/02/2023 Pure hypercholesterolemia 01/05/2023 PAST SURGICAL HISTORY Procedure Laterality Date BREAST BIOPSY HX Left 09/24/2020 COLONOSCOPY WITH BIOPSY (03676) 04/11/2023 EGD DIAGNOSTIC 04/11/2023 INSJ TUNNELED CTR VAD W/SUBQ PORT AGE 5 YR/> 01/18/2021 and removal of old port a cath LIGATE FALLOPIAN TUBE 1989 MASTECTOMY HX MASTECTOMY, SIMPLE, COMPLETE Left 08/2021 PAST SURGICAL HISTORY OF 1984 Bunions removed from both feet PORTOCATH PLACEMENT 11/04/2020 malfunctioned FAMILY HISTORY Problem Relation Age of Onset Breast Cancer Mother Melanoma Father No Known Problems Sister Melanoma Brother Seizures Brother other (AV malformation brain) Brother Social History Tobacco Use Smoking status: Former Current packs/day: 0.00 Average packs/day: 1 pack/day for 45.0 years (45.0 ttl pk-yrs) Types: Cigarettes Start date: 05/13/1978 Quit date: 05/14/2023 Years since quittin.7 Smokeless tobacco: Never Vaping Use Vaping status: Never Used Substance Use Topics Alcohol use: Yes Comment: rare 1 drink Drug use: Yes Types: Marijuana Comment: Medical Marijuana card ALLERGIES: ALLERGIES Allergen Reactions Covid-19 (Sars-Cov-* Hives CURRENT OUTPATIENT MEDICATIONS: letrozole (FEMARA) 2.5 mg tablet Take 1 tablet by mouth once daily. MELATONIN ORAL Take 1 tablet by mouth at bedtime as needed. REVIEW OF SYSTEMS: GENERAL: No fever, night sweats, weight loss or malaise. All other reviewed and negative other than HPI. PHYSICAL EXAMINATION: VITAL SIGNS: BP 179/98 Pulse 90 Temp (Src) 97.7 (Temporal) Ht 5' 2.795 (1.60m) Wt 118 lb (53.5kg) SpO2 95% BMI 21.04 kg/(m2). GENERAL APPEARANCE: Well appearing, in no acute distress, alert and oriented x3, well-hydrated, well nourished. NECK: Supple, no JVD or lymphadenopathy, LEFT CHEST: Smooth mastectomy scar, no masses or adenopathy RIGHT BREAST: No masses or adenopathy I spent a total of 30 minutes on the date of the service which included preparing to see the patient, [id number] patient care, completing clinical documentation, obtaining and/or reviewing separately obtained history, performing a medically appropriate examination, counseling and educating the patient/family/caregiver, ordering medications, tests, or procedures, independently interpreting results (not separately reported), and communicating results to the patient/family/caregiver. Electronically Signed: Salvador Carbone MD February 01, 2024 [facility] 02-01-2024 History of Present illness Narrative (Elements copied from my note dated March 17, 2023, have been reviewed and updated where appropriate, and all reflect current assessment and medical decision making from today's encounter, February 01, 2024) HISTORY OF PRESENT ILLNESS: Elida Penaloza is a 68 year old female history left breast cancer [facility] ER+/TN+/Her2-, dx 09-04-20, had NAC with dd AC T then mastectomy. ypT1N1. On letrozole since November 2021. Notes some left arm chest discomfort Here for follow up, doing ok. Broke her foot. Dxa stable Calcium intake should be ok with her diet. CLINICAL IMPRESSION: Breast cancer as above. RECOMMENDATION/PLAN: 1. Plan letrozole 5-7 years (through at least November 2026) 2. See back 1 year. 3. Final zometa March 2024 Written and verbal health teaching given to patient, patient verbalizes understanding and agrees with treatment plan. PAST MEDICAL HISTORY Diagnosis Date Anemia 01/12/2021 Breast cancer (HCC) 09/24/2020 left breast and lymph noder Cellulitis 03/24/2021 Coronary artery calcification seen on CAT scan 03/22/2023 Helicobacter pylori gastritis 04/15/2023 Nicotine use disorder, F17.2 03/25/2021 Osteopenia Positive colorectal cancer screening using Cologuard test 02/02/2023 Pure hypercholesterolemia 01/05/2023 PAST SURGICAL HISTORY Procedure Laterality Date BREAST BIOPSY HX Left 09/24/2020 COLONOSCOPY WITH BIOPSY (08693) 04/11/2023 EGD DIAGNOSTIC 04/11/2023 INSJ TUNNELED CTR VAD W/SUBQ PORT AGE 5 YR/> 01/18/2021 and removal of old port a cath LIGATE FALLOPIAN TUBE 1989 MASTECTOMY HX MASTECTOMY, SIMPLE, COMPLETE Left 08/2021 PAST SURGICAL HISTORY OF 1984 Bunions removed from both feet PORTOCATH PLACEMENT 11/04/2020 malfunctioned FAMILY HISTORY Problem Relation Age of Onset Breast Cancer Mother Melanoma Father No Known Problems Sister Melanoma Brother Seizures Brother other (AV malformation brain) Brother Social History Tobacco Use Smoking status: Former Current packs/day: 0.00 Average packs/day: 1 pack/day for 45.0 years (45.0 ttl pk-yrs) Types: Cigarettes Start date: 05/13/1978 Quit date: 05/14/2023 Years since quittin.7 Smokeless tobacco: Never Vaping Use Vaping status: Never Used Substance Use Topics Alcohol use: Yes Comment: rare 1 drink Drug use: Yes Types: Marijuana Comment: Medical Marijuana card ALLERGIES: ALLERGIES Allergen Reactions Covid-19 (Sars-Cov-* Hives CURRENT OUTPATIENT MEDICATIONS: letrozole (FEMARA) 2.5 mg tablet Take 1 tablet by mouth once daily. MELATONIN ORAL Take 1 tablet by mouth at bedtime as needed. REVIEW OF SYSTEMS: GENERAL: No fever, night sweats, weight loss or malaise. All other reviewed and negative other than HPI. PHYSICAL EXAMINATION: VITAL SIGNS: BP 179/98 Pulse 90 Temp (Src) 97.7 (Temporal) Ht 5' 2.795 (1.60m) Wt 118 lb (53.5kg) SpO2 95% BMI 21.04 kg/(m^2). GENERAL APPEARANCE: Well appearing, in no acute distress, alert and oriented x3, well-hydrated, well nourished. NECK: Supple, no JVD or lymphadenopathy, LEFT CHEST: Smooth mastectomy scar, no masses or adenopathy RIGHT BREAST: No masses or adenopathy I spent a total of 30 minutes on the date of the service which included preparing to see the patient, [id number]-oa-[id number] patient care, completing clinical documentation, obtaining and/or reviewing separately obtained history, performing a medically appropriate examination, counseling and educating the patient/family/caregiver, ordering medications, tests, or procedures, independently interpreting results (not separately reported), and communicating results to the patient/family/caregiver. Electronically Signed: Salvador Carbone MD February 01, 2024 documented in this encounter [facility] 02-01-2024 Telephone encounter Note SOCIAL WORK FOLLOW UP NOTE: [facility] Date of service: February 01, 2024 Elida Penaloza is being seen for a follow up social work visit. Today's visit includes: patient SW met with pt this date prior to OV. She is inquiring about post-mastectomy supplies. SW answered all questions as able and provided some donated items for pt. No other needs identified. LUCINDA Pelayo [facility] 02-01-2024 Miscellaneous Notes SOCIAL WORK FOLLOW UP NOTE: [facility] Date of service: February 01, 2024 Elida Penaloza is being seen for a follow up social work visit. Today's visit includes: patient SW met with pt this date prior to OV. She is inquiring about post-mastectomy supplies. SW answered all questions as able and provided some donated items for pt. No other needs identified. LUCINDA Pelayo documented in this encounter [facility] 01-29-2024 History of Present illness Narrative Radiology Service Progress Note PATIENT NAME: Elida Penaloza DATE OF SERVICE: January 29, 2024 TIME: 12:27 PM PATIENT IDENTITY VERIFICATION COMPLETED USING TWO (2) IDENTIFIERS: Name and Date of confirmed by patient verbally. FALL SCREENING: Has the patient had 2 falls in the last year or 1 fall with injury or currently using an Ambulatory Assistive Device (Walker, Cane, Wheelchair, Crutches, etc.)? No PATIENT GENDER DATA: Female. status: : No status: NO. PATIENT RELEVANT IMPLANT DATA REVIEWED: Not Applicable PATIENT PRESENTS WITH AN IMPLANTABLE OR ATTACHED STUDENT SERVICES REPRESENTATIVE: No RADIOLOGY DEPARTMENT: Bone Density PERIPHERAL IV DATA: Not applicable SIGNED BY: RT Jasmin(R) January 29, 2024 12:27 PM documented in this encounter [facility] 01-29-2024 Note HNO ID: [id number] Author: TJ BORREGO RT(Xiao) Service: ? Author Type: Technologist Type: Progress Notes Filed: 01/29/2024 12:42 Note Text: Radiology Service Progress Note PATIENT NAME: Elida Penaloza DATE OF SERVICE: January 29, 2024 TIME: 12:27 PM PATIENT IDENTITY VERIFICATION COMPLETED USING TWO (2) IDENTIFIERS: Name and Date of confirmed by patient verbally. FALL SCREENING: Has the patient had 2 falls in the last year or 1 fall with injury or currently using an Ambulatory Assistive Device (Walker, Cane, Wheelchair, Crutches, etc.)? No PATIENT GENDER DATA: Female. status: : No status: NO. PATIENT RELEVANT IMPLANT DATA REVIEWED: Not Applicable PATIENT PRESENTS WITH AN IMPLANTABLE OR ATTACHED STUDENT SERVICES REPRESENTATIVE: No RADIOLOGY DEPARTMENT: Bone Density PERIPHERAL IV DATA: Not applicable SIGNED BY: RT Jasmin(R) January 29, 2024 12:27 PM [facility] 01-16-2024 Telephone encounter Note Patient calls and states that she would like to see a customer technical services manager regarding her foot fracture. Patient asking if provider can place this referral so that she can see customer technical services manager? Please review and advise, Lilly Chester RN [facility] 01-16-2024 Miscellaneous Notes Patient calls and states that she would like to see a customer technical services manager regarding her foot fracture. Patient asking if provider can place this referral so that she can see customer technical services manager? Please review and advise, Lilly Chester RN documented in this encounter [facility] 01-09-2024 History of Present illness Narrative Radiology Service Progress Note PATIENT NAME: Elida Penaloza DATE OF SERVICE: January 09, 2024 TIME: 12:36 PM PATIENT IDENTITY VERIFICATION COMPLETED USING TWO (2) IDENTIFIERS: Name and Date of confirmed by patient verbally. FALL SCREENING: Has the patient had 2 falls in the last year or 1 fall with injury or currently using an Ambulatory Assistive Device (Walker, Cane, Wheelchair, Crutches, etc.)? Yes, Patient High Risk for Falls What interventions were put in place to prevent falls during this visit? Increased Observations by Caregivers PATIENT GENDER DATA: Female. status: : No status: NO. PATIENT RELEVANT IMPLANT DATA REVIEWED: Not Applicable PATIENT PRESENTS WITH AN IMPLANTABLE OR ATTACHED STUDENT SERVICES REPRESENTATIVE: No RADIOLOGY DEPARTMENT: General X-ray: Exam(s) Completed: Lower Extremity X-Ray(s): Foot, Left and Wt. Bearing PERIPHERAL IV DATA: Not applicable SIGNED BY: JIMENEZ Colón) January 09, 2024 12:36 PM documented in this encounter [facility] 01-09-2024 Note HNO ID: [id number] Author: ROSSANA PINEDO RT(R) Service: ? Author Type: Technologist Type: Progress Notes Filed: 01/09/2024 12:36 Note Text: Radiology Service Progress Note PATIENT NAME: Elida Penaloza DATE OF SERVICE: January 09, 2024 TIME: 12:36 PM PATIENT IDENTITY VERIFICATION COMPLETED USING TWO (2) IDENTIFIERS: Name and Date of confirmed by patient verbally. FALL SCREENING: Has the patient had 2 falls in the last year or 1 fall with injury or currently using an Ambulatory Assistive Device (Walker, Cane, Wheelchair, Crutches, etc.)? Yes, Patient High Risk for Falls What interventions were put in place to prevent falls during this visit? Increased Observations by Caregivers PATIENT GENDER DATA: Female. status: : No status: NO. PATIENT RELEVANT IMPLANT DATA REVIEWED: Not Applicable PATIENT PRESENTS WITH AN IMPLANTABLE OR ATTACHED STUDENT SERVICES REPRESENTATIVE: No RADIOLOGY DEPARTMENT: General X-ray: Exam(s) Completed: Lower Extremity X-Ray(s): Foot, Left and Wt. Bearing PERIPHERAL IV DATA: Not applicable SIGNED BY: RT Katarzyna(Xiao) January 09, 2024 12:36 PM [facility] 01-09-2024 Instructions Wanda Nowak, DATABASE SOFTWARE TECHNICIAN.[facility] - 01/09/2024 9:56 AM EST Screening schedule The following prevention plan is recommended: DTaP,Tdap,Td Vaccine(1 - Tdap) Never done Shingrix Vaccine(1 of 2) Never done Pneumococcal Vaccine: 65+(1 of 1 - PCV) Never done LDL Cholesterol (blood test) due on 01/05/2024 WHAT YOU CAN DO TO PREVENT FALLS Many falls can be prevented. By making some changes, you can lower your chances of falling. Four things YOU can do to prevent falls for you* and your caregiver 1. Begin a regular exercise program Exercise is one of the most important ways to lower your chances of falling. It makes you stronger and helps you feel better. Exercises that improve balance and coordination (like Francois Chi) are the most helpful. Lack of exercise leads to weakness and increases your chances of falling. Ask your doctor or health care provider about the best type of exercise program for you. 2. Have your health care provider review your medicines Have your doctor or pharmacist review all the medicines you take, even acna-krx-lksnrsq medicines. As you get older, the way medicines work in your body can change. Some medicines, or combinations of medicines, can make you sleepy or dizzy and can cause you to fall. 3. Have your vision checked Have your eyes checked by an eye doctor at least once a year. You may be wearing the wrong glasses or have a condition like glaucoma or cataracts that limits your vision. Poor vision can increase your chances of falling. 4. Make your home safer About half of all falls happen at home. To make your home safer: Remove things you can trip over (like papers, books, clothes, and shoes) from stairs and places where you walk. Remove small throw rugs or use double-sided tape to keep the rugs from slipping. Keep items you use often in cabinets you can reach easily without using a step stool. Have grab bars put in next to your toilet and in the tub or shower. Use non-slip mats in the bathtub and on shower floors. Improve the lighting in your home. As you get older, you need brighter lights to see well. Hang light-weight curtains or shades to reduce glare. Have handrails and lights put in on all staircases. Wear shoes both inside and outside the house. Avoid going barefoot or wearing slippers. For more information, contact: Centers for Disease Control and Prevention www.cdc.gov/injury * This information may not apply if you have certain medical conditions. documented in this encounter [facility] 01-09-2024 Note HNO ID: [id number] Author: WANDA NOWAK APRN.CNP Service: ? Author Type: Nurse Practitioner Type: Progress Notes Filed: 01/09/2024 10:25 Note Text: Elida Penaloza is a 68 year old female here for a Medicare wellness visit. Medicare Health Risk Assessment General Health Very good Exercise: Minutes/Day 30 min Exercise: Days/Week 5 days Alcohol: Daily Use Monthly or less Alcohol: Drinks/Day 1 or 2 Alcohol: 6 or more drinks Never Feel off balance No Concerns: Teeth/Dentures No Concerns: Sexual function No Troubled by feelings None of the above Frequency: Eating healthy diet Nearly every day ADLs requiring help None of the above Safety precautions in home/vehicle Yes Smoke, vape, chews tobacco No Difficulty hearing No Difficulty seeing No Current Providers Specialists: I have reviewed specialist-related care of the patient in the medical record. Current care team: Patient Care Team: Ronn Wang MD as PCP - General (Internal Medicine) Salvador Carbone MD (Hematology/Oncology) Outside specialists seen: [place] [facility] Medical/Family history review Reviewed and updated problem list, medical/surgical/family/social history, medications, and allergies. Opioid use review Opioid Medications (last 90 days) No data to display Anxiety/Depression screening PHQ-2 Score: 0 BERT-7 Score: 0 Recommendation: no further intervention at this time Cognitive screening Mini Cog Score: 3 Cognitive screening reviewed and No further action needed (score 3-5). Functional Observation Was the patient's Timed Up AND Go test unsteady or >= 12 seconds? No Advance Care Planning Patient was not able to provide a surrogate decision maker or written advance directives Measurements BP 140/84 Pulse 88 Resp 20 Ht 157.5 cm (5' 2) Wt 53.2 kg (117 lb 4.6 oz) LMP (LMP Unknown) SpO2 96% BMI 21.45 kg/m? Vision Screening: Follows with optometry/ophthalmology Assessment/Plan Medicare annual wellness visit, subsequent (Z00.00) - Counseled on healthy diet and regular exercise - Fall avoidance information provided - Personalized prevention plan provided Additional Concerns The following concerns were also discussed with the patient: White coat hypertension, BP historically in the 140's/80's in the office Home BP's: Yes 120's/70's on average Denies: headache, chest pain, palpitations, dyspnea, and peripheral edema. Last 3 Encounter BP Readings: Date: BP: 01/09/2024 140/84 12/18/2023 136/80 11/03/2023 163/88 Left foot injury x 6 weeks ago: left foot fell asleep while she was sitting, when she stood up it twisted under. Since then she has a painful swollen area on the edge of her foot. Aggravated by weight bearing. Alleviated with rest. Has not treated with any OTC analgesics, ice, or heat. Denies ankle pain or swelling. BP 140/84 Pulse 88 Resp 20 Ht 157.5 cm (5' 2) Wt 53.2 kg (117 lb 4.6 oz) LMP (LMP Unknown) SpO2 96% BMI 21.45 kg/m? Physical Exam Vitals reviewed. Constitutional: Appearance: Normal appearance. Cardiovascular: Rate and Rhythm: Normal rate and regular rhythm. Pulses: Dorsalis pedis pulses are 2+ on the right side and 2+ on the left side. Heart sounds: Normal heart sounds. No murmur heard. Pulmonary: Effort: Pulmonary effort is normal. Breath sounds: Normal breath sounds. No wheezing, rhonchi or rales. Musculoskeletal: Left ankle: No swelling or deformity. No tenderness. Normal range of motion. Left foot: Normal range of motion (painful). No deformity. Feet: Feet: Left foot: Skin integrity: Skin integrity normal. Skin: General: Skin is warm and dry. Neurological: Mental Status: She is alert. Psychiatric: Mood and Affect: Mood normal. ASSESSMENT/PLAN: 1. Medicare welcome exam - ICD9: V70.0, ICD10: Z00.00 (primary diagnosis) See medicare wellness plan 2. Foot injury, left, initial encounter - ICD9: 959.7, ICD10: S99.922A - XR FOOT GENERAL 3V AP/LAT/OBL LEFT 3. Left foot pain - ICD9: 729.5, ICD10: M79.672 - XR FOOT GENERAL 3V AP/LAT/OBL LEFT 4. Elevated blood pressure reading - ICD9: 796.2, ICD10: R03.0 Suspected Whitecoat elevation - Encouraged dietary sodium restriction/DASH diet - Recommended regular aerobic exercise. - Recommend home blood pressure monitoring, to bring results in on next visit - Goal of BP <130/80 5. Screening for depression - ICD9: V79.0, ICD10: Z13.31 - DEPRESSION SCREENING 6. Encounter for screening examination for other mental health and behavioral disorders - ICD9: V79.8, ICD10: Z13.39 - ANXIETY SCREENING 7. Coronary artery calcification seen on CAT scan - ICD9: 414.00, ICD10: I25.10 - LIPID PANEL BASIC Wanda Nowak APRN.[facility] 01-09-2024 History of Present illness Narrative Images from the original note were not included. Elida Penaloza is a 68 year old female here for a Medicare wellness visit. Medicare Health Risk Assessment General Health Very good Exercise: Minutes/Day 30 min Exercise: Days/Week 5 days Alcohol: Daily Use Monthly or less Alcohol: Drinks/Day 1 or 2 Alcohol: 6 or more drinks Never Feel off balance No Concerns: Teeth/Dentures No Concerns: Sexual function No Troubled by feelings None of the above Frequency: Eating healthy diet Nearly every day ADLs requiring help None of the above Safety precautions in home/vehicle Yes Smoke, vape, chews tobacco No Difficulty hearing No Difficulty seeing No Current Providers Specialists: I have reviewed specialist-related care of the patient in the medical record. Current care team: Patient Care Team: Ronn Wang MD as PCP - General (Internal Medicine) Salvador Carbone MD (Hematology/Oncology) Outside specialists seen: [place] [facility] Medical/Family history review Reviewed and updated problem list, medical/surgical/family/social history, medications, and allergies. Opioid use review Opioid Medications (last 90 days) No data to display Anxiety/Depression screening PHQ-2 Score: 0 BERT-7 Score: 0 Recommendation: no further intervention at this time Cognitive screening Mini Cog Score: 3 Cognitive screening reviewed and No further action needed (score 3-5). Functional Observation Was the patient's Timed Up & Go test unsteady or >= 12 seconds? No Advance Care Planning Patient was not able to provide a surrogate decision maker or written advance directives Measurements BP 140/84 Pulse 88 Resp 20 Ht 157.5 cm (5' 2) Wt 53.2 kg (117 lb 4.6 oz) LMP (LMP Unknown) SpO2 96% BMI 21.45 kg/m Vision Screening: Follows with optometry/ophthalmology Assessment/Plan Medicare annual wellness visit, subsequent (Z00.00) - Counseled on healthy diet and regular exercise - Fall avoidance information provided - Personalized prevention plan provided Additional Concerns The following concerns were also discussed with the patient: White coat hypertension, BP historically in the 140's/80's in the office Home BP's: Yes 120's/70's on average Denies: headache, chest pain, palpitations, dyspnea, and peripheral edema. Last 3 Encounter BP Readings: Date: BP: 01/09/2024 140/84 12/18/2023 136/80 11/03/2023 163/88 Left foot injury x 6 weeks ago: left foot fell asleep while she was sitting, when she stood up it twisted under. Since then she has a painful swollen area on the edge of her foot. Aggravated by weight bearing. Alleviated with rest. Has not treated with any OTC analgesics, ice, or heat. Denies ankle pain or swelling. BP 140/84 Pulse 88 Resp 20 Ht 157.5 cm (5' 2) Wt 53.2 kg (117 lb 4.6 oz) LMP (LMP Unknown) SpO2 96% BMI 21.45 kg/m Physical Exam Vitals reviewed. Constitutional: Appearance: Normal appearance. Cardiovascular: Rate and Rhythm: Normal rate and regular rhythm. Pulses: Dorsalis pedis pulses are 2+ on the right side and 2+ on the left side. Heart sounds: Normal heart sounds. No murmur heard. Pulmonary: Effort: Pulmonary effort is normal. Breath sounds: Normal breath sounds. No wheezing, rhonchi or rales. Musculoskeletal: Left ankle: No swelling or deformity. No tenderness. Normal range of motion. Left foot: Normal range of motion (painful). No deformity. Feet: Feet: Left foot: Skin integrity: Skin integrity normal. Skin: General: Skin is warm and dry. Neurological: Mental Status: She is alert. Psychiatric: Mood and Affect: Mood normal. ASSESSMENT/PLAN: 1. Medicare welcome exam - ICD9: V70.0, ICD10: Z00.00 (primary diagnosis) See medicare wellness plan 2. Foot injury, left, initial encounter - ICD9: 959.7, ICD10: S99.922A - XR FOOT GENERAL 3V AP/LAT/OBL LEFT 3. Left foot pain - ICD9: 729.5, ICD10: M79.672 - XR FOOT GENERAL 3V AP/LAT/OBL LEFT 4. Elevated blood pressure reading - ICD9: 796.2, ICD10: R03.0 Suspected Whitecoat elevation - Encouraged dietary sodium restriction/DASH diet - Recommended regular aerobic exercise. - Recommend home blood pressure monitoring, to bring results in on next visit - Goal of BP <130/80 5. Screening for depression - ICD9: V79.0, ICD10: Z13.31 - DEPRESSION SCREENING 6. Encounter for screening examination for other mental health and behavioral disorders - ICD9: V79.8, ICD10: Z13.39 - ANXIETY SCREENING 7. Coronary artery calcification seen on CAT scan - ICD9: 414.00, ICD10: I25.10 - LIPID PANEL BASIC Wanda Nowak APRN.[employer] documented in this encounter [facility] 12-18-2023 Instructions Ronnie Urban APRN.[employer] - 12/18/2023 10:24 AM EDT Lung nodule/s: all previously seen nodule/s have not changed in size or characteristic/resolved and there are no new nodules of concern. Please return in one year for the following 2 visits on the same day: Annual low-dose CT chest Lung cancer screening Provider visit. This recommendation is subject to change pending the final report from radiology. I will notify you of the final radiology report recommendations when available by [facility] message, letter, or phone call. We will also notify your referring provider/PCP of the results and recommendations. If you didn t schedule this before you left the office or need to reschedule, you can call in to schedule it anytime: [facility] [place] [phone] [facility] [phone] All other [facility] locations [phone] Feel free to reach out for any questions or concerns, Ronnie Urban APRN.CNP Lung Cancer Screening [phone] documented in this encounter [facility] 12-18-2023 History of Present illness Narrative Radiology Service Progress Note PATIENT NAME: Elida Penaloza DATE OF SERVICE: December 18, 2023 TIME: 1:01 PM PATIENT IDENTITY VERIFICATION COMPLETED USING TWO (2) IDENTIFIERS: Name and Date of confirmed by patient verbally. FALL SCREENING: Has the patient had 2 falls in the last year or 1 fall with injury or currently using an Ambulatory Assistive Device (Walker, Cane, Wheelchair, Crutches, etc.)? No PATIENT GENDER DATA: Female. status: : No status: NO. PATIENT RELEVANT IMPLANT DATA REVIEWED: Yes PATIENT PRESENTS WITH AN IMPLANTABLE OR ATTACHED STUDENT SERVICES REPRESENTATIVE: No RADIOLOGY DEPARTMENT: CT; Exam(s) Completed: Lung Screening PERIPHERAL IV DATA: Not applicable SIGNED BY: JIMENEZ Rosales) December 18, 2023 1:01 PM documented in this encounter [facility] 12-18-2023 Note HNO ID: [id number] Author: DIANA MARTINEZ RT(R) Service: ? Author Type: Metal Weather Stripper Type: Progress Notes Filed: 12/18/2023 13:02 Note Text: Radiology Service Progress Note PATIENT NAME: Elida Penaloza DATE OF SERVICE: December 18, 2023 TIME: 1:01 PM PATIENT IDENTITY VERIFICATION COMPLETED USING TWO (2) IDENTIFIERS: Name and Date of confirmed by patient verbally. FALL SCREENING: Has the patient had 2 falls in the last year or 1 fall with injury or currently using an Ambulatory Assistive Device (Walker, Cane, Wheelchair, Crutches, etc.)? No PATIENT GENDER DATA: Female. status: : No status: NO. PATIENT RELEVANT IMPLANT DATA REVIEWED: Yes PATIENT PRESENTS WITH AN IMPLANTABLE OR ATTACHED STUDENT SERVICES REPRESENTATIVE: No RADIOLOGY DEPARTMENT: CT; Exam(s) Completed: Lung Screening PERIPHERAL IV DATA: Not applicable SIGNED BY: RT Connie(R) December 18, 2023 1:01 PM [facility] 12-18-2023 Note HNO ID: [id number] Author: RONNIE URBAN APRN.[employer]S [employer]IVER Service: ? Author Type: Nurse Practitioner Type: Progress Notes Filed: 12/18/2023 11:19 Note Text: Chief Complaint: 6 months follow-up from LDCT scan dated 06/12/2023 for LUNG RADS Category 3 finding of stable 21.2 mm KIRTI nodule, noted initially on 03/17/2023 LDCT. History of Present Illness: Elida Penaloza is a 68 year old female who is presenting today for pulmonary nodule follow-up. Nodule was found through lung cancer screening on LDCT. Patient has a PMH significant for Left breast cancer. Patient is a former smoker with a 45 pack year history. Quit smoking 7 months ago. Since the patient's last visit the patient has not had new medical issues or hospitalizations. No recent respiratory infections/pneumonia. The patient does not require assistance with normal activities of daily living. Modified Medical Research [place] Dyspnea Scale (MMRC) I only get breathless with strenous exercise 0 Patient denies SOB with their daily activity. No wheezing or dyspnea. Patient denies feeling of chest tightness/congestion in the chest. Patient does not have a new or concerning cough, and denies hemoptysis. Patient does not have a chronic daily cough. Denies regular or recent fevers/chills. Patient does not have any significant unintentional weight loss. Patient denies having any respiratory infections or COVID-19 in the past few months. Last 12 Encounter Wt Readings: Date: Wt: 12/18/2023 52.2 kg (115 lb) 11/03/2023 52.9 kg (116 lb 10 oz) 09/13/2023 53.9 kg (118 lb 13.3 oz) 06/12/2023 54.6 kg (120 lb 4.8 oz) 04/25/2023 54 kg (119 lb) 03/17/2023 54 kg (119 lb) 03/03/2023 54.1 kg (119 lb 3.2 oz) 01/24/2023 53.5 kg (118 lb) 01/04/2023 52.6 kg (116 lb) 11/29/2022 54 kg (119 lb) 09/14/2022 52.4 kg (115 lb 8 oz) 06/23/2022 50.7 kg (111 lb 12.8 oz) Past Medical History: PAST MEDICAL HISTORY Diagnosis Date Anemia 01/12/2021 Breast cancer (HCC) 09/24/2020 left breast and lymph noder Cellulitis 03/24/2021 Coronary artery calcification seen on CAT scan 03/22/2023 Helicobacter pylori gastritis 04/15/2023 Nicotine use disorder, F17.2 03/25/2021 Osteopenia Positive colorectal cancer screening using Cologuard test 02/02/2023 Pure hypercholesterolemia 01/05/2023 Surgical Hx: PAST SURGICAL HISTORY Procedure Laterality Date BREAST BIOPSY HX Left 09/24/2020 COLONOSCOPY WITH BIOPSY (21826) 04/11/2023 EGD DIAGNOSTIC 04/11/2023 INSJ TUNNELED CTR VAD W/SUBQ PORT AGE 5 YR/> 01/18/2021 and removal of old port a cath LIGATE FALLOPIAN TUBE 1989 MASTECTOMY HX MASTECTOMY, SIMPLE, COMPLETE Left 08/2021 PAST SURGICAL HISTORY OF 1985 Bunions removed from both feet PORTOCATH PLACEMENT 11/04/2020 malfunctioned Family Hx: FAMILY HISTORY Problem Relation Age of Onset Breast Cancer Mother Melanoma Father No Known Problems Sister Melanoma Brother Seizures Brother other (AV malformation brain) Brother Allergies: ALLERGIES Allergen Reactions Covid-19 (Sars-Cov-* Hives Social History Tobacco Use: 1 packs/day, for 45 years. Quit 05/14/2023. Types: Cigarettes Review Of Systems: See HPI for ROS All of the remainder systems were reviewed and negative. PHYSICAL EXAMINATION: BP 136/80 Pulse 81 Resp 14 Wt 115 lb (52.2kg) SpO2 97% General appearance: well appearing, in no acute distress, and alert Skin: skin color, texture, turgor normal, no rashes or lesions Neck: Supple, no adenopathy; thyroid symmetric, normal size Respiratory: lungs clear to auscultation no wheezing or rhonchi Cardiovascular: Negative. RRR without murmur, gallop, or rubs. No ectopy Musculoskeletal: Extremities normal. No deformities, edema, or skin discoloration. Left lateral foot bony prominence tender to touch. Neuro: Oriented X 3 Data Review I have visually reviewed imaging and testing below CT imaging done today was reviewed and analyzed independently by practitioner and awaiting radiology review. CT was compared to prior CT chest. KIRTI opacity stable Prior PFTS: No textual results found for the specified procedure(s). Assessment and Plan: 1. Pulmonary Nodule: KIRTI subpleural opacity is stable (unchanged), and no new nodules of concern were seen on the exam. Recommended follow-up in one year. This recommendation is subject to change, pending final radiology report. The patient was counseled on the importance of adherence to annual LDCT lung cancer screening, impact of comorbidities and ability or willingness to undergo diagnosis and treatment. 2. Nicotine Dependence, Former: Continue to abstain from smoking cigarettes. Ronnie Urban APRN.[facility] December 18, 2023 9:59 AM I spent a total of 30 minutes on the date of the service which included preparing to see the patient, [id number] patient care, completing clinical documentation, performing a medically appropriate examination, counse (more content not included)... [facility] 12-18-2023 History of Present illness Narrative Images from the original note were not included. Chief Complaint: 6 months follow-up from LDCT scan dated 06/12/2023 for LUNG RADS Category 3 finding of stable 21.2 mm KIRTI nodule, noted initially on 03/17/2023 LDCT. History of Present Illness: Elida Penaloza is a 68 year old female who is presenting today for pulmonary nodule follow-up. Nodule was found through lung cancer screening on LDCT. Patient has a PMH significant for Left breast cancer. Patient is a former smoker with a 45 pack year history. Quit smoking 7 months ago. Since the patient's last visit the patient has not had new medical issues or hospitalizations. No recent respiratory infections/pneumonia. The patient does not require assistance with normal activities of daily living. Modified Medical Research [place] Dyspnea Scale (MMRC) I only get breathless with strenous exercise 0 Patient denies SOB with their daily activity. No wheezing or dyspnea. Patient denies feeling of chest tightness/congestion in the chest. Patient does not have a new or concerning cough, and denies hemoptysis. Patient does not have a chronic daily cough. Denies regular or recent fevers/chills. Patient does not have any significant unintentional weight loss. Patient denies having any respiratory infections or COVID-19 in the past few months. Last 12 Encounter Wt Readings: Date: Wt: 12/18/2023 52.2 kg (115 lb) 11/03/2023 52.9 kg (116 lb 10 oz) 09/13/2023 53.9 kg (118 lb 13.3 oz) 06/12/2023 54.6 kg (120 lb 4.8 oz) 04/25/2023 54 kg (119 lb) 03/17/2023 54 kg (119 lb) 03/03/2023 54.1 kg (119 lb 3.2 oz) 01/24/2023 53.5 kg (118 lb) 01/04/2023 52.6 kg (116 lb) 11/29/2022 54 kg (119 lb) 09/14/2022 52.4 kg (115 lb 8 oz) 06/23/2022 50.7 kg (111 lb 12.8 oz) Past Medical History: PAST MEDICAL HISTORY Diagnosis Date Anemia 01/12/2021 Breast cancer (HCC) 09/24/2020 left breast and lymph noder Cellulitis 03/24/2021 Coronary artery calcification seen on CAT scan 03/22/2023 Helicobacter pylori gastritis 04/15/2023 Nicotine use disorder, F17.2 03/25/2021 Osteopenia Positive colorectal cancer screening using Cologuard test 02/02/2023 Pure hypercholesterolemia 01/05/2023 Surgical Hx: PAST SURGICAL HISTORY Procedure Laterality Date BREAST BIOPSY HX Left 09/24/2020 COLONOSCOPY WITH BIOPSY (52440) 04/11/2023 EGD DIAGNOSTIC 04/11/2023 INSJ TUNNELED CTR VAD W/SUBQ PORT AGE 5 YR/> 01/18/2021 and removal of old port a cath LIGATE FALLOPIAN TUBE 1989 MASTECTOMY HX MASTECTOMY, SIMPLE, COMPLETE Left 08/2021 PAST SURGICAL HISTORY OF 1985 Bunions removed from both feet PORTOCATH PLACEMENT 11/04/2020 malfunctioned Family Hx: FAMILY HISTORY Problem Relation Age of Onset Breast Cancer Mother Melanoma Father No Known Problems Sister Melanoma Brother Seizures Brother other (AV malformation brain) Brother Allergies: ALLERGIES Allergen Reactions Covid-19 (Sars-Cov-* Hives Social History Tobacco Use: 1 packs/day, for 45 years. Quit 05/14/2023. Types: Cigarettes Review Of Systems: See HPI for ROS All of the remainder systems were reviewed and negative. PHYSICAL EXAMINATION: BP 136/80 Pulse 81 Resp 14 Wt 115 lb (52.2kg) SpO2 97% General appearance: well appearing, in no acute distress, and alert Skin: skin color, texture, turgor normal, no rashes or lesions Neck: Supple, no adenopathy; thyroid symmetric, normal size Respiratory: lungs clear to auscultation no wheezing or rhonchi Cardiovascular: Negative. RRR without murmur, gallop, or rubs. No ectopy Musculoskeletal: Extremities normal. No deformities, edema, or skin discoloration. Left lateral foot bony prominence tender to touch. Neuro: Oriented X 3 Data Review I have visually reviewed imaging and testing below CT imaging done today was reviewed and analyzed independently by practitioner and awaiting radiology review. CT was compared to prior CT chest. KIRTI opacity stable Prior PFTS: No textual results found for the specified procedure(s). Assessment and Plan: 1. Pulmonary Nodule: KIRTI subpleural opacity is stable (unchanged), and no new nodules of concern were seen on the exam. Recommended follow-up in one year. This recommendation is subject to change, pending final radiology report. The patient was counseled on the importance of adherence to annual LDCT lung cancer screening, impact of comorbidities and ability or willingness to undergo diagnosis and treatment. 2. Nicotine Dependence, Former: Continue to abstain from smoking cigarettes. Ronnie Urban APRN.EMS DRIVER December 18, 2023 9:59 AM I spent a total of 30 minutes on the date of the service which included preparing to see the patient, [id number] patient care, completing clinical documentation, performing a medically appropriate examination, counseling and educating the patient/family/caregiver, ordering medications, tests, or procedures, communicating with other HCPs (not separately reported), independently interpreting results (not separately reported), communicating results to the patient/family/caregiver, and care coordination (not separately reported). documented in this encounter [facility] 11-03-2023 Note HNO ID: [id number] Author: MARION TIPTON RN Service: ? Author Type: Registered Nurse Type: Progress Notes Filed: 11/03/2023 12:11 Note Text: Pt. Verbally denies any pain and dental issues. [facility] 11-03-2023 History of Present illness Narrative Pt. Verbally denies any pain and dental issues. documented in this encounter [facility] 09-13-2023 History of Present illness Narrative Heart and Vascular [place] [facility] [place] Department of Cardiovascular Medicine SECTION OF [facility] CARDIOLOGY/[facility] OUTPATIENT VISIT DATE September 13, 2023 OUTPATIENT VISIT TYPE NEW PATIENT Name: Elida Penaloza : 1955 Date: September 13, 2023 PRIMARY CARE PHYSICIAN: Ronn Wang [address] [place], [place] [id number] REFERRING PHYSICIAN: Ronn Wang [address] [place] [address] CHIEF COMPLAINT: Patient presents with: CARD New Patient Consult: CT 06/12/23 - Coronary Artery Calcifications: Circumflex mod; Left Anterior Descending mod; Right Coronary mild IMPRESSION / PLAN: 1. Coronary calcification. Patient I discussed the results of her recent CAT scan of her chest showing moderate coronary calcification and recommended stress testing for routine screening but the patient did not want to proceed at this time particularly since she is having severe shoulder problems. She will be aware of any chest pain or shortness of breath in the future and will consider stress testing and let me know when she decides. 2. Hyperlipidemia. Patient's last LDL was 148 on March 31, 2021 and repeat labs performed at [facility] showed an LDL of 186. I recommended statin therapy but the patient was reluctant to begin at this time and will consider it in the future. 3. PVCs. Patient is asymptomatic but did have frequent PVCs on electrocardiogram today. Echocardiogram performed on November 26, 2020 was normal. Again recommended stress testing at some point in the future. Follow Up Instructions Return for As Needed. ORDERS FOR TODAY'S VISIT: Office Visit on 09/13/23 CONSULT TO CARDIOLOGY ECG COMPLETE HISTORY OF PRESENT ILLNESS: Elida Penaloza is an 68 year old female with a past history of breast cancer status post left mastectomy, tobacco abuse who underwent routine screening with a CAT scan of her chest showing moderate coronary calcification and presents today for further discussion. She denies any chest pain, significant shortness of breath and is very active with her activities. She denies any syncope or near syncope, palpitations or lower extremity edema. PAST MEDICAL HISTORY Diagnosis Date Anemia 01/12/2021 Breast cancer (HCC) 09/24/2020 left breast and lymph noder Cellulitis 03/24/2021 Coronary artery calcification seen on CAT scan 03/22/2023 Helicobacter pylori gastritis 04/15/2023 Nicotine use disorder, F17.2 03/25/2021 Osteopenia Positive colorectal cancer screening using Cologuard test 02/02/2023 Pure hypercholesterolemia 01/05/2023 PAST SURGICAL HISTORY Procedure Laterality Date BREAST BIOPSY HX Left 09/24/2020 COLONOSCOPY WITH BIOPSY 04/11/2023 EGD DIAGNOSTIC 04/11/2023 INSJ TUNNELED CTR VAD W/SUBQ PORT AGE 5 YR/> 01/18/2021 and removal of old port a cath LIGATE FALLOPIAN TUBE 1989 MASTECTOMY HX MASTECTOMY, SIMPLE, COMPLETE Left 08/2021 PAST SURGICAL HISTORY OF 1985 Bunions removed from both feet PORTOCATH PLACEMENT 11/04/2020 malfunctioned SOCIAL HISTORY Social History Tobacco Use Smoking status: Former Packs/day: 1.00 Years: 45.00 Additional pack years: 0.00 Total pack years: 45.00 Types: Cigarettes Quit date: 05/14/2023 Years since quittin.3 Smokeless tobacco: Never Vaping Use Vaping Use: Never used Substance Use Topics Alcohol use: Never Comment: rare 1 drink Drug use: Yes Types: Marijuana FAMILY HISTORY Problem Relation Age of Onset Breast Cancer Mother Melanoma Father No Known Problems Sister Melanoma Brother Seizures Brother other (AV malformation brain) Brother ALLERGIES: ALLERGIES Allergen Reactions Covid-19 (Sars-Cov-* Hives MEDICATIONS: letrozole (FEMARA) 2.5 mg tablet Take 1 tablet by mouth once daily. MELATONIN ORAL Take 1 tablet by mouth at bedtime as needed. REVIEW OF SYSTEMS: GENERAL: Negative for: Weight loss or gain, Fever or Chills NECK: Negative for: Swelling, Pain, Stiffness RESPIRATORY: Negative for: Cough, Blood in Sputum GASTROINTESTINAL: Negative for: Trouble swallowing, Heartburn, Change in bowel habits, Blood in stool, Dark black stools MUSCULOSKELETAL: Negative for: Severe Muscle or joint pain, Stiffness , Joint swelling NEUROLOGIC/PSYCHIATRIC: Negative for: Paralysis, Numbness, Tingling, Tremor SKIN: Negative for: Rashes, Itching HEMATOLOGICAL/LYMPHATIC: Negative for: Easy bruising , Easy bleeding ENDOCRINE: Negative for: Heat or cold intolerance, Excessive sweating, Frequent urination All other review of systems, per history of present illness. PHYSICAL EXAMINATION: BP 158/96 Pulse 83 Ht 157.5 cm (5' 2) Wt 53.9 kg (118 lb 13.3 oz) LMP (LMP Unknown) SpO2 98% BMI 21.73 kg/m Last 2 Encounter Wt Readings: Date: Wt: 06/12/2023 54.6 kg (120 lb 4.8 oz) 04/25/2023 54 kg (119 lb) General: Well appearing, in no acute distress. Skin: No clubbing, no cyanosis. Eyes: Extra ocular movements intact Oropharynx: No gross abnormalities Neck: No jugular venous distention, no carotid bruits, carotids have a normal upstroke, no palpable thyromegaly. Lungs: Clear to auscultation bilaterally, no wheezing or rhonchi. Heart: Regular rhythm with occasional ectopic beat, PMI not displaced, S1, S2, no S3, no S4, no murmur. Abdomen: Soft, nontender, bowel sounds normal, no palpable organomegaly, no bruits. Extremities: No peripheral edema . +2 distal pulses bilaterally. Neuro: Oriented to person, place and time, alert, cooperative. CARDIOVASCULAR MEDICINE TESTING: I have personally reviewed Electrocardiogram: Sinus rhythm with frequent PVCs, incomplete right bundle branch block Steven Anaya DO, [facility] Staff Shopper Marketing Manager Miquele Tomisich Dept. of Cardiovascular Medicine Heart, Vascular and Thoracic [place], [facility] This document was generated using the assistance of voice recognition software. If there are any errors of spelling, grammar, syntax or meaning, please feel free to contact me directly at anytime. documented in this encounter [facility] 07-18-2023 Note Formatting of this n ote might be different from the original. July 18, 2023 PID: [id number] Elida Penaloza [address] [place] [address] Dear Ms. Penaloza, We are pleased to inform you that the results of your recent breast imaging exam on 07/18/2023 are normal. Early detection of cancer is very important. We also understand recommendations regarding breast cancer screening are controversial. Please discuss with your primary care provider which strategy is best for you and whether a mammogram is right for you. Your imaging studies and report will be kept on file at [facility] as part of your permanent medical record and are available for your continuing care. Thank you for allowing us to help in meeting your health care needs. Sincerely, Dr. Hernandez Interpreting Radiologist [facility] (Normal over 40) [facility] 07-18-2023 Miscellaneous Notes July 18, 2023 PID: [id number] Elida Penaloza [address] [place] [address] Dear Ms. Penaloza, We are pleased to inform you that the results of your recent breast imaging exam on 07/18/2023 are normal. Early detection of cancer is very important. We also understand recommendations regarding breast cancer screening are controversial. Please discuss with your primary care provider which strategy is best for you and whether a mammogram is right for you. Your imaging studies and report will be kept on file at [facility] as part of your permanent medical record and are available for your continuing care. Thank you for allowing us to help in meeting your health care needs. Sincerely, Dr. Hernandez Interpreting Radiologist [facility] (Normal over 40) documented in this encounter [facility] 07-18-2023 History of Present illness Narrative Radiology Service Progress Note PATIENT NAME: Elida Penaloza DATE OF SERVICE: July 18, 2023 TIME: 8:41 AM PATIENT IDENTITY VERIFICATION COMPLETED USING TWO (2) IDENTIFIERS: Name and Date of confirmed by patient verbally. FALL SCREENING: Has the patient had 2 falls in the last year or 1 fall with injury or currently using an Ambulatory Assistive Device (Walker, Cane, Wheelchair, Crutches, etc.)? No PATIENT GENDER DATA: Female. status: : No status: NO. PATIENT RELEVANT IMPLANT DATA REVIEWED: Not Applicable PATIENT PRESENTS WITH AN IMPLANTABLE OR ATTACHED STUDENT SERVICES REPRESENTATIVE: No RADIOLOGY DEPARTMENT: Mammography PERIPHERAL IV DATA: Not applicable SIGNED BY: RT Vida(Xiao) July 18, 2023 8:41 AM documented in this encounter [facility] 06-12-2023 Instructions Ronnie Urban APRN.EMS DRIVER - 06/12/2023 1:10 PM EDT Images from the original note were not included. Frequently Asked Questions: How common are lung nodules? Nodules are found in up to half of adults who get a chest x-ray or CT scan. Do nodules cause any symptoms? In general, small nodules don t cause any noticeable problems. They re too small to cause pain or breathing problems. Should I worry that I have a nodule? Most nodules are not cancer, but for a small number of people the nodule may collar turner operator to be an early cancer. Your doctor can tell if your nodule is lung cancer by: Seeing how it looks on the CT scan. Seeing whether it grows over time. A nodule that grows larger over time is a sign that it could be a cancer. Taking a sample of the nodule with a needle or surgery. Most people with a nodule will NOT need to have this test. What is the chance that the nodule is an early lung cancer? Fewer than 5% of all nodules collar turner operator to be cancer What if my nodule is lung cancer? Even if a nodule turns out to be lung cancer, it is likely to be an early stage lung cancer. People with early stage lung cancer that is treated are less likely to than people who are diagnosed at a later stage when the cancer has started to cause symptoms. What will happen next? Your healthcare team will probably recommend getting more CT scans to keep a close eye on the nodule to see if it changes. We call this active surveillance. ? If a nodule is not cancer, it usually won t grow. If the nodule doesn t grow over a 2-year period, it is very unlikely to be cancer. Most of the time, it is safe to stop watching nodules if there is no growth over a 2-year period. ? On the other hand, if the nodule is getting bigger, it should be looked at more closely to see if it is lung cancer. Nodules can be viewed more closely using different radiology studies or by biopsy (using a needle or surgery to take a sample of the nodule to look at under a microscope). Your healthcare team will determine which is best for you. Why shouldn t I get a biopsy now? ? A biopsy means removing a piece of your lung in order to look at it under a microscope. Biopsies are usually not recommended when nodules are small because it is very difficult to biopsy them safely. ? Doing a biopsy when a nodule is small can cause harm such as collapse of the lung, bleeding, or infection. Is it really safe to wait for the next CT scan? Most cancers grow fairly slowly, and it takes several months for them to get bigger. So even if the nodule is lung cancer, it will likely still be small in a few months. Even if the nodule is lung cancer that is growing, there is a very good chance that surgery or radiation will cure you. Waiting a few months for the next CT scan is very safe and should not affect the treatment you receive or your chances for cure if the nodule turns out to be cancer. How does my clinician decide when to do the next CT scan? There are several guidelines for how to decide when to get the next CT scan. These guidelines are based on the chance the nodule is lung cancer and how big the nodule might be at the time of the next scan. Your healthcare provider will determine the best time for your next CT scan based on these guidelines. Your healthcare provider may choose to discuss the CT results with other specialists to determine the best plan for you. What if I m a smoker? Quitting now will decrease your chance of getting lung cancer in the future, as well as many other serious health problems like emphysema and heart disease. Plan for follow-up: Repeat imaging at 6 months from today's scan. documented in this encounter [facility] 06-12-2023 History of Present illness Narrative Chief Complaint: 3 mos follow-up from LDCT scan dated 03/20/2023 for LUNG RADS Category 4B finding of Nodule 1: This solid nodule is located in the left upper lobe on slice number 108 with an average diameter of 20.8 mm (21.9 mm x 19.7 mm). This nodular consolidative opacity with air bronchograms is new since the prior chest CT dated 10/08/2020. This opacity is favored to represent a region of radiation pneumonitis/fibrosis although given nodular configuration, follow-up is recommended. Incidental: coronary artery calcifications-scheduled with Dr. Anaya 09/12 History of Present Illness: Elida Penaloza is a 68 year old female who is presenting today for pulmonary nodule follow-up. Nodule was found through lung cancer screening on LDCT. Patient has a PMH significant for Left breast cancer with radiation, metastasis left axillary lymph node, osteopenia and coronary artery calcifications. Patient is a former smoker with a 45 pack year history. Quit smoking 05/14/2023. Since the patient's last visit the patient has not had new medical issues or hospitalizations. No recent respiratory infections/pneumonia. The patient does not require assistance with normal activities of daily living. Patient denies SOB with their daily activity. No wheezing or dyspnea. Patient denies feeling of chest tightness/congestion in the chest. Patient does not have a new or concerning cough, and denies hemoptysis. Patient does not have a chronic daily cough. Denies regular or recent fevers/chills. Patient does not have any significant unintentional weight loss. Patient denies having any respiratory infections or COVID-19 in the past few months. 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 Environmental:second hand smoke as a child and adult Past Medical History: PAST MEDICAL HISTORY Diagnosis Date Anemia 01/12/2021 Breast cancer (HCC) 09/24/2020 left breast and lymph noder Cellulitis 03/24/2021 Coronary artery calcification seen on CAT scan 03/22/2023 Helicobacter pylori gastritis 04/15/2023 Nicotine use disorder, F17.2 03/25/2021 Osteopenia Positive colorectal cancer screening using Cologuard test 02/02/2023 Pure hypercholesterolemia 01/05/2023 Surgical Hx: PAST SURGICAL HISTORY Procedure Laterality Date BREAST BIOPSY HX Left 09/24/2020 COLONOSCOPY WITH BIOPSY 04/11/2023 EGD DIAGNOSTIC 04/11/2023 INSJ TUNNELED CTR VAD W/SUBQ PORT AGE 5 YR/> 01/18/2021 and removal of old port a cath LIGATE FALLOPIAN TUBE 1989 MASTECTOMY HX MASTECTOMY, SIMPLE, COMPLETE Left 08/2021 PAST SURGICAL HISTORY OF 1985 Bunions removed from both feet PORTOCATH PLACEMENT 11/04/2020 malfunctioned Family Hx: FAMILY HISTORY Problem Relation Age of Onset Breast Cancer Mother Melanoma Father No Known Problems Sister Melanoma Brother Seizures Brother other (AV malformation brain) Brother Allergies: ALLERGIES Allergen Reactions Covid-19 (Sars-Cov-* Hives Social History Tobacco Use: 1 packs/day, for 45 years. Types: Cigarettes Review Of Systems: See HPI for ROS All of the remainder systems were reviewed and negative. PHYSICAL EXAMINATION: BP 158/90 Pulse 76 Temp (Src) 97.9 (Temporal) Wt 120 lb 4.8 oz (54.6kg) SpO2 97% General appearance: well appearing, in no acute distress, and alert Skin: skin color, texture, turgor normal, no rashes or lesions Nose/Sinuses: Negative Oropharynx: Lips, mucosa, and tongue normal, teeth and gums normal, oropharynx normal Neck: Supple, no adenopathy; thyroid symmetric, normal size Respiratory: lungs clear to auscultation no wheezing or rhonchi Cardiovascular: Negative. RRR without murmur, gallop, or rubs. No ectopy Musculoskeletal: Extremities normal. No deformities, edema, or skin discoloration. Neuro: Oriented X 3 Data Review I have visually reviewed imaging and testing below CT imaging done today was reviewed independently by practitioner and awaiting radiology review. CT was compared to prior CT chest. Prior PFTS: No textual results found for the specified procedure(s). Assessment and Plan: 1. Pulmonary Nodule: KIRTI nodular opacity identified on the last CT is stable (unchanged), and likely reflects radiation pneumonitis. No new nodules of concern were seen on the exam. Recommended follow-up in 6 mos. This recommendation is subject to change, pending final radiology report. The patient was counseled on the importance of adherence to annual LDCT lung cancer screening, impact of comorbidities and ability or willingness to undergo diagnosis and treatment. 2. Former tobacco use: Patient quit smoking 4 weeks ago and is doing well. Ronnie Urban APRN.CNP June 12, 2023 11:09 AM I spent a total of 30 minutes on the date of the service which included preparing to see the patient, [id number] patient care, completing clinical documentation, performing a medically appropriate examination, counseling and educating the patient/family/caregiver, ordering medications, tests, or procedures, communicating with other HCPs (not separately reported), independently interpreting results (not separately reported), communicating results to the patient/family/caregiver, and care coordination (not separately reported). documented in this encounter [facility] 06-12-2023 History of Present illness Narrative Radiology Service Progress Note PATIENT NAME: Elida Penaloza DATE OF SERVICE: June 12, 2023 TIME: 1:58 PM PATIENT IDENTITY VERIFICATION COMPLETED USING TWO (2) IDENTIFIERS: Name and Date of confirmed by patient verbally. FALL SCREENING: Has the patient had 2 falls in the last year or 1 fall with injury or currently using an Ambulatory Assistive Device (Walker, Cane, Wheelchair, Crutches, etc.)? No PATIENT GENDER DATA: Female. status: : No status: NO. PATIENT RELEVANT IMPLANT DATA REVIEWED: Yes PATIENT PRESENTS WITH AN IMPLANTABLE OR ATTACHED STUDENT SERVICES REPRESENTATIVE: No RADIOLOGY DEPARTMENT: CT; Exam(s) Completed: Chest PERIPHERAL IV DATA: Not applicable SIGNED BY: RT Connie(R) June 12, 2023 1:58 PM documented in this encounter [facility] 04-21-2023 Miscellaneous Notes Images from the original note were not included. Stevo Gregory MD You; [facility] General Surgery Pool 11 hours ago (8:23 PM) Please see my phone note from April 13, 2023. The patient has Helicobacter pylori gastritis. I wrote the prescriptions for treatment for that infection. Unfortunately looks like I did not forward the note to either you or my [place] pool. Please contact the patient and have her tow picker and take the prescription as directed. Thanks-Rich Called patient this am and discussed DR George 04/13/23 note- please see that encounter. This encounter closed. Pt called and had a colonoscopy last week and is calling to get the results please advise, thanks! documented in this encounter [facility] 04-18-2023 Miscellaneous Notes Refill rx sent to provider. Bonnie Amador LPN Please see prescription clarifying request in scanned docs and assist Daya Mcfarland documented in this encounter [facility] 04-18-2023 Miscellaneous Notes Patient has been identified by name and date of : Yes RX INSTRUCTIONS: Patient aware RX will be sent to pharmacy. No need to notify patient. Bonnie Amador LPN documented in this encounter [facility] 04-13-2023 Miscellaneous Notes I placed a phone note but the note closed. Her polyp was hyperplastic she should have 10-year follow-up colonoscopy. She had H. pylori gastritis. I wrote for quad therapy and submitted to Jonnie Hawk. 04/11/2023 COLON/EGD ASC Sofya please place orders Analy Kwong Manager Consumer documented in this encounter [facility] 04-13-2023 Miscellaneous Notes FOLLOW UP ENDOSCOPY - RESULTS AND RECOMMENDATIONS NAME: Elida Penaloza [facility] NO.: [id number] : 1955 DATE: April 13, 2023 PRIMARY CARE PROVIDER: Ronn Wang MD REFERRING PHYSICIAN: Sofya Nelson Elida Penaloza is a patient referred for endoscopy for positive Cologuard test. The patient is a 67 year old female referred for endoscopy due to positive Cologuard test. Elida NOTES episodes of abdominal cramping, loose stools and increased mucus in stool. Reports a history of diverticular disease. Denies family history of colon issues. Elida has not undergone prior endoscopy. Patient's medical history is significant for breast cancer. She follows with Dr. Wang in primary care. Patient denies chest pain, shortness of breath or recent hospitalization. Denies problems with sedation in the past. I performed upper and lower endoscopy on April 11, 2023. The patient was found to have: Upper Endoscopy Impression: - Normal examined jejunum. - Normal examined duodenum. - Gastritis. Biopsied. - Non-severe reflux esophagitis with no bleeding. I prescribed Prilosec 40 mg daily. Lower Endoscopy Impression: - One 6 mm polyp at the recto-sigmoid colon, removed with a cold biopsy forceps. Resected and retrieved. - Diverticulosis in the sigmoid colon. - The examination was otherwise normal on direct and retroflexion views. Pathology demonstrated: FINAL DIAGNOSIS A. Antrum, biopsy: - Helicobacter gastritis. B. Rectosigmoid, polypectomy: - Hyperplastic polyp. IMPRESSION: H. pylori gastritis, hyperplastic polyp PLAN: INSTRUCTIONS FOLLOWING A POLYP FOUND AT COLONOSCOPY You were found to have a hyperplastic colon polyp. I recommend you undergo repeat endoscopy in 10 years. If you note bleeding, change in bowel habits, or other suspicious colon related symptoms before that time, those symptoms should be evaluated as necessary. If you have any difficulties or concerns, you should contact our office immediately. INSTRUCTIONS FOR PEPTIC ULCER DISEASE/GASTRITIS - H PYLORI POSITIVE I discussed with you the findings of your upper endoscopy. Your upper endoscopy demonstrated signs of peptic ulcer disease or irritation. This can be seen as a range of issues from actual ulcers in the stomach or duodenum (first part of the small bowel) or irritation ranging from redness to more significant irritation with erosions of the stomach or duodenum. Your gastric biopsy demonstrated that your stomach has the H. Pylori bacteria. H. Pylori bacteria have been show to cause ulcers and gastritis. You will be given medications to eradicate that bacteria. I prescribed quad therapy of Protonix, Flagyl, doxycycline, and bismuth sulfate. These medications are usually given for 10 After that time, the antibiotics are stopped, but the proton pump inhibitor (PPI)... Prevacid, prilosec, nexium or the like, are continued. Peptic ulcer disease or gastritis is also effected by the following factors caused from a combination of too much acid production or too little protective mucus production in the stomach. Factors that increase acid production include smoking and stress. If you smoke, stopping smoking will often cure these issues without needing other medications. Factors that decrease the stomach's production of protective mucus include alcohol consumption, smoking, aspirin and other anti-inflammatory use. Over the counter medications including antiacids and acid reducing medications including H2 blockers (Zantac and the like) and proton pump inhibitors (prilosec, prevacid and the like) neutralize or prevent acid production. Prescription strength proton pump inhibitors (PPIs) may be necessary if your symptoms persist. Carafate may be added to PPI treatment in refractory cases. Avoiding smoking, alcohol and antiinflammatory medications are important in the successful treatment of peptic diseases. New or worsening symptoms such are epigastric pain, burning, difficulty swallowing or food sticking should be relayed to your physician. Feeling full early after eating, or black, tarry, foul smelling stools are also worrisome. If you have any difficulties or concerns, you should contact our office immediately. The patient is instructed to follow-up with your primary care provider I have instructed my staff to forward the above information to the patient and to the appropriate providers documented in this encounter [facility] 04-11-2023 Nurse Note Patient arrived laying on left side. Patient does not appear to be in any pain at this time and denies such. Abdomen appears to be nondistended and soft to palpation. Patient encouraged to belch and pass gas as needed. documented in this encounter [facility] 04-11-2023 Miscellaneous Notes The patient received a copy of Colonoscopy and EGD discharge instructions that contain information for how to contact the physician who performed the procedure and when to seek medical care. documented in this encounter [facility] 04-11-2023 History and physical note UPDATED PROCEDURAL SEDATION HISTORY AND PHYSICAL EXAMINATION SERVICE DATE: 04/11/2023 SERVICE TIME: 12:29 PM PHYSICAL EXAM MUST BE COMPLETED ON ADMISSION PROCEDURE: Procedure Indications: The History and Physical (completed in the past 30 days) has been reviewed and the patient has been examined. The contents accurately reflect the patient's condition with the following additions or revisions since the H&P was completed. ASA Class: ASA Class:: Patient with mild systemic disease Examination indicates no changes. AIRWAY: Airway Visualization of Uvula: Yes Mouth opening greater than 2 fingerbreadths: Yes Neck Full Range of Motion: Yes LUNGS: Lungs clear to auscultation CARDIAC: Regular rhythm,Regular rate Provisional Diagnosis/Treatment Plan: positive cologuard test - EGD and Colonoscopy SEDATION GOAL: Moderate This H&P can be found in the attached. SIGNATURE: Stevo Gregory MD PATIENT NAME: Elida Penaloza DATE: April 11, 2023 TIME: 12:29 PM Source Note - Stevo Gregory MD - 04/11/2023 12:00 PM EST Images from the original note were not included. HISTORY AND PHYSICAL Elida Penaloza 1955 REFERRING PHYSICIAN: Wanda Nowak, APR* CHIEF COMPLAINT: Consult (Colonoscopy, positive colorguard) HPI: The patient is a 67 year old female referred for endoscopy due to positive Cologuard test. Elida NOTES episodes of abdominal cramping, loose stools and increased mucus in stool. Reports a history of diverticular disease. Denies family history of colon issues. Elida has not undergone prior endoscopy. Patient's medical history is significant for breast cancer. She follows with Dr. Wang in primary care. Patient denies chest pain, shortness of breath or recent hospitalization. Denies problems with sedation in the past. PAST MEDICAL HISTORY PAST MEDICAL HISTORY Diagnosis Date Anemia 01/12/2021 Breast cancer (HCC) 09/24/2020 left breast and lymph noder Cellulitis 03/24/2021 Nicotine use disorder, F17.2 03/25/2021 Osteopenia Pure hypercholesterolemia 01/05/2023 PAST SURGICAL HISTORY PAST SURGICAL HISTORY Procedure Laterality Date BREAST BIOPSY HX Left 09/24/2020 INSJ TUNNELED CTR VAD W/SUBQ PORT AGE 5 YR/> 01/18/2021 and removal of old port a cath LIGATE FALLOPIAN TUBE 1989 PAST SURGICAL HISTORY OF 1985 Bunions removed from both feet PORTOCATH PLACEMENT 11/04/2020 malfunctioned CURRENT MEDICATIONS Current Outpatient Medications Medication Sig letrozole (FEMARA) 2.5 mg tablet Take 1 tablet by mouth once daily. ergocalciferol 50,000 unit capsule (VITAMIN D2, DRISDOL) Take 1 capsule by mouth one time a week. MELATONIN ORAL Take 1 tablet by mouth at bedtime as needed. No current facility-administered medications for this visit. ALLERGIES: Covid-19 (Sars-Cov-2) Vaccine, Maryjo Cell PERSONAL HISTORY: SOCIAL HISTORY Social History Tobacco Use Smoking status: Every Day Packs/day: 1.00 Years: 45.00 Additional pack years: 0.00 Total pack years: 45.00 Types: Cigarettes Smokeless tobacco: Never Tobacco comments: Pt has cut back to 1/4 pack daily. Vaping Use Vaping Use: Never used Substance Use Topics Alcohol use: Never Comment: rare 1 drink Drug use: Never FAMILY HISTORY: FAMILY HISTORY FAMILY HISTORY Problem Relation Age of Onset Breast Cancer Mother Melanoma Father No Known Problems Sister Melanoma Brother Seizures Brother other (AV malformation brain) Brother REVIEW OF SYSTEMS GENERAL: No weight loss, malaise or fevers HEENT: Negative for frequent or significant headaches, No changes in hearing or vision, no nose bleeds or other nasal problems NECK: Negative for lumps, goiter, pain and significant neck swelling RESPIRATORY: Negative for cough, hemoptysis, wheezing, COPD, dyspnea or shortness of breath CARDIOVASCULAR: See HPI GI: No nausea, vomiting, or diarrhea MUSCULOSKELETAL: Negative for joint pain or swelling, back pain or muscle pain PHYSICAL EXAMINATION: General: The patient is 67 year old female, well nourished, well hydrated in no acute distress. The patient is oriented to time, place, and person. VITALS: Blood pressure 140/84, pulse 93, temperature 36.6 C (97.9 F), height 157.5 cm (5' 2), weight 54.1 kg (119 lb 3.2 oz), SpO2 96%. Body mass index is 21.8 kg/m . HEENT: Normal cephalic, ataumatic, pupils are equally round, sclera are anicteric, mucous membranes are moist, oropharynx is clear. Neck has no masses, asymmetry or lymphadenopathy. Respiratory: Clear to auscultation and percussion. Normal respiratory excursion and pattern. Cardiac: Examination is regular rate and rhythm. Normal S1/S2 Abdominal exam: Soft, nontender, with no palpable masses. No hepatosplenomegaly. No palpable hernias. Extremities: no clubbing, cyanosis or edema. No adenopathy. LABORATORY VALUES: As Noted RADIOLOGIC STUDIES: As Noted Assessment IMPRESSION: positive Cologuard, abdominal cramping, change in bowel habits PLAN: I have reviewed my findings with the surgeon. Will plan for upper and lower endoscopy. We discussed the risks and benefits of the planned endoscopy. I have informed the patient that complications can occur including failure to complete the endoscopy and perforation. The patient had the opportunity to ask questions concerning the planned endoscopy. My staff has also explained the procedure to the patient in understandable terms and has given the patient printed material concerning the procedure. The patient freely consents to surgery. I plan to use Golytely bowel preparation Diagnoses: (R10.9) Abdominal cramping (primary encounter diagnosis) (R19.5) Positive colorectal cancer screening using Cologuard test (R19.4) Change in bowel habits Consultation requested by Wanda Nowak CNP for an opinion regarding positive Cologuard test. My final recommendations will be communicated back to the requesting physician by way of shared Medical record or letter to requesting physician via [place] mail. Sofya Nelson PA-C Images from the original note were not included. HISTORY AND PHYSICAL Elida Penaloza 1955 REFERRING PHYSICIAN: Wanda Nowak M, APR* CHIEF COMPLAINT: Consult (Colonoscopy, positive colorguard) HPI: The patient is a 67 year old female referred for endoscopy due to positive Cologuard test. Elida NOTES episodes of abdominal cramping, loose stools and increased mucus in stool. Reports a history of diverticular disease. Denies family history of colon issues. Elida has not undergone prior endoscopy. Patient's medical history is significant for breast cancer. She follows with Dr. Wang in primary care. Patient denies chest pain, shortness of breath or recent hospitalization. Denies problems with sedation in the past. PAST MEDICAL HISTORY PAST MEDICAL HISTORY Diagnosis Date Anemia 01/12/2021 Breast cancer (HCC) 09/24/2020 left breast and lymph noder Cellulitis 03/24/2021 Nicotine use disorder, F17.2 03/25/2021 Osteopenia Pure hypercholesterolemia 01/05/2023 PAST SURGICAL HISTORY PAST SURGICAL HISTORY Procedure Laterality Date BREAST BIOPSY HX Left 09/24/2020 INSJ TUNNELED CTR VAD W/SUBQ PORT AGE 5 YR/> 01/18/2021 and removal of old port a cath LIGATE FALLOPIAN TUBE 1989 PAST SURGICAL HISTORY OF 1984 Bunions removed from both feet PORTOCATH PLACEMENT 11/04/2020 malfunctioned CURRENT MEDICATIONS Current Outpatient Medications Medication Sig letrozole (FEMARA) 2.5 mg tablet Take 1 tablet by mouth once daily. ergocalciferol 50,000 unit capsule (VITAMIN D2, DRISDOL) Take 1 capsule by mouth one time a week. MELATONIN ORAL Take 1 tablet by mouth at bedtime as needed. No current facility-administered medications for this visit. ALLERGIES: Covid-19 (Sars-Cov-2) Vaccine, Maryjo Cell PERSONAL HISTORY: SOCIAL HISTORY Social History Tobacco Use Smoking status: Every Day Packs/day: 1.00 Years: 45.00 Additional pack years: 0.00 Total pack years: 45.00 Types: Cigarettes Smokeless tobacco: Never Tobacco comments: Pt has cut back to 1/4 pack daily. Vaping Use Vaping Use: Never used Substance Use Topics Alcohol use: Never Comment: rare 1 drink Drug use: Never FAMILY HISTORY: FAMILY HISTORY FAMILY HISTORY Problem Relation Age of Onset Breast Cancer Mother Melanoma Father No Known Problems Sister Melanoma Brother Seizures Brother other (AV malformation brain) Brother REVIEW OF SYSTEMS GENERAL: No weight loss, malaise or fevers HEENT: Negative for frequent or significant headaches, No changes in hearing or vision, no nose bleeds or other nasal problems NECK: Negative for lumps, goiter, pain and significant neck swelling RESPIRATORY: Negative for cough, hemoptysis, wheezing, COPD, dyspnea or shortness of breath CARDIOVASCULAR: See HPI GI: No nausea, vomiting, or diarrhea MUSCULOSKELETAL: Negative for joint pain or swelling, back pain or muscle pain PHYSICAL EXAMINATION: General: The patient is 67 year old female, well nourished, well hydrated in no acute distress. The patient is oriented to time, place, and person. VITALS: Blood pressure 140/84, pulse 93, temperature 36.6 C (97.9 F), height 157.5 cm (5' 2), weight 54.1 kg (119 lb 3.2 oz), SpO2 96%. Body mass index is 21.8 kg/m . HEENT: Normal cephalic, ataumatic, pupils are equally round, sclera are anicteric, mucous membranes are moist, oropharynx is clear. Neck has no masses, asymmetry or lymphadenopathy. Respiratory: Clear to auscultation and percussion. Normal respiratory excursion and pattern. Cardiac: Examination is regular rate and rhythm. Normal S1/S2 Abdominal exam: Soft, nontender, with no palpable masses. No hepatosplenomegaly. No palpable hernias. Extremities: no clubbing, cyanosis or edema. No adenopathy. LABORATORY VALUES: As Noted RADIOLOGIC STUDIES: As Noted Assessment IMPRESSION: positive Cologuard, abdominal cramping, change in bowel habits PLAN: I have reviewed my findings with the surgeon. Will plan for upper and lower endoscopy. We discussed the risks and benefits of the planned endoscopy. I have informed the patient that complications can occur including failure to complete the endoscopy and perforation. The patient had the opportunity to ask questions concerning the planned endoscopy. My staff has also explained the procedure to the patient in understandable terms and has given the patient printed material concerning the procedure. The patient freely consents to surgery. I plan to use Golytely bowel preparation Diagnoses: (R10.9) Abdominal cramping (primary encounter diagnosis) (R19.5) Positive colorectal cancer screening using Cologuard test (R19.4) Change in bowel habits Consultation requested by Wanda Nowak CNP for an opinion regarding positive Cologuard test. My final recommendations will be communicated back to the requesting physician by way of shared Medical record or letter to requesting physician via [place] mail. Sofya Nelson PA-C documented in this encounter [facility] 03-23-2023 Miscellaneous Notes Spoke with patient. Given message from provider's office. Patient verbalizes understanding. Follow up appointment scheduled. Florina Reyes RN Images from the original note were not included. 1st attempt to reach pt by phone without success. Mailbox is full. Try later to let pt know the following: Ronn Wang MD P tr Im [facility] Pool Follow up in 4-6 weeks for coronary calcifications. (Pt is aware of the CT Lung results) Viri Gaytan LPN documented in this encounter [facility] 02-03-2023 Miscellaneous Notes Patient notified & transferred to recruiting scheduler to set up GEN SURG appointment. Brandee Post MA ----- Message from Ronn Wang MD sent at 02/02/2023 5:21 PM EST ----- Positive Cologuard. Colonscopy recommended. Consult surgery. documented in this encounter [facility] 01-24-2023 Ronnie Jerome APRN.EMS DRIVER - 01/24/2023 10:[address] Lung Screen Results The CT scan that you will have done will show if you have any nodules (small spots) in your lungs that are suspicious for cancer. Around 90% of the patients who have this scan done are found to have at least one nodule. Most nodules are benign (not cancer) and of no harm to you at all. A specialist will make a scientific evaluation about whether or not a nodule is worrisome based on its size and shape. The radiologist who will read your scan will put it into one of four categories: LUNG-RADS Category Description Overall Probability of Malignancy Recommended Follow-Up 1 Negative No nodules and definitely benign (non-cancerous nodules) Essentially 0. 1 Year - Follow-up Low dose CT 2 Benign Appearance or Behavior Nodules with a very low likelihood of becoming cancer due to size or lack of growth Less than 1% 1 Year - Follow-up Low dose CT 3 Probably Benign Probably benign finding, short term follow-up recommended 1 to 2% 6 Months - Follow-up Low dose CT 4 Suspicious Findings for which additional diagnostic testing and/or biopsy is recommended Will be calculated based on nodule characteristics. Dependent on what is seen on the exam. (3 month follow-up CT, PET-CT, or biopsy) At times, we may see something outside of the lungs on the scan that could be a health concern. Below are some of the most common findings: S Clinically Significant or Potentially Clinically Significant Findings (non lung cancer) Referral or additional imaging/labs depending on result. Approximately 10% of people receive this result. Coronary Artery Calcifications (Moderate or Severe) - Referral to cardiology for further work-up and recommendations. Thyroid Nodule - TSH level and Thyroid Ultrasound dependent on size, referral to endocrinology. Adrenal Nodule - blood work and referral to endocrinology. Others Lung Cancer Screening hotline: [phone] Lung Cancer Screening [phone] Billing Questions: or [email or web address] Specialist Providers: (Sangeeta Alves CNP; Katherin Harvey PA-C; Nayana Kelly CNP; Shelby Huber CNP, Michelle Barba CNP; Diana Whitman CNP; Rachel Kilpatrick PA-C; Ronnie Urban CNP; Sharmin Davey CNP; Rosalinda Headley PA-C; Lamar Ocampo CNP; Giselle Ching CNP; Sofya Lyon CNP): [phone] documented in this encounter [facility] 01-24-2023 History of Present illness Narrative Images from the original note were not included. LUNG SCREENING VISIT PRIMARY CARE PHYSICIAN: Ronn Wang MD PULMONARY PROVIDER: none Results will be communicated via letter or electronic record if applicable. Visit Delivery: In Person Patient Visit Type: New to Screening Current or Ex-smoker? [Current Exam Type: baseline LDCT Number of Pack Years: 45 Current smoker (=0) REQUESTER: The referring provider advised the patient to have screening. HISTORY OF PRESENT ILLNESS: Elida Penaloza is a 67 year old Active smoker who presents for lung screening. Now smoking 1 pack every 2-3 days. Smoking [employer] Sp[employer]its. Has quit in the past, and restarted. Plans to try again on Neo. Respiratory symptoms include: SOB: No Chest tightness: No Coughing: No Hemoptysis: No Wheezing: No Fever/Chills: No Recent Respiratory Infection: No Unintentional weight loss: No Last 6 Encounter Wt Readings: Date: Wt: 01/24/2023 53.5 kg (118 lb) 01/04/2023 52.6 kg (116 lb) 11/29/2022 54 kg (119 lb) 09/14/2022 52.4 kg (115 lb 8 oz) 06/23/2022 50.7 kg (111 lb 12.8 oz) 06/14/2022 50.3 kg (111 lb) ECOG PERFORMANCE STATUS: 0- Fully active, able to carry on all pre-disease performance w/o restriction. Modified Medical Research [place] Dyspnea Scale (MMRC) I only get breathless with strenous exercise 0 PAST MEDICAL HISTORY Diagnosis Date Anemia 01/12/2021 Breast cancer (HCC) Cellulitis 03/24/2021 Nicotine use disorder, F17.2 03/25/2021 Pure hypercholesterolemia 01/05/2023 PAST SURGICAL HISTORY Procedure Laterality Date BREAST BIOPSY HX Left 09/24/2020 INSJ TUNNELED CTR VAD W/SUBQ PORT AGE 5 YR/> 01/18/2021 and removal of old port a cath LIGATE FALLOPIAN TUBE 1989 PAST SURGICAL HISTORY OF 1984 Bunions removed from both feet PORTOCATH PLACEMENT 11/04/2020 malfunctioned FAMILY HISTORY Problem Relation Age of Onset Breast Cancer Mother Melanoma Father No Known Problems Sister Melanoma Brother Seizures Brother other (AV malformation brain) Brother letrozole (FEMARA) 2.5 mg tablet Take 1 tablet by mouth once daily. ergocalciferol 50,000 unit capsule (VITAMIN D2, DRISDOL) Take 1 capsule by mouth one time a week. MELATONIN ORAL Take 1 tablet by mouth at bedtime as needed. ALLERGIES Allergen Reactions Covid-19 (Sars-Cov-* Hives The medications and allergies were reviewed and reconciled for this patient and deemed current. Lung Cancer Risk Factors: 1.Tobacco Use: Start Age 23, Quit Age: N/A, Average packs per day 1, Pack Years 45 2. Passive Smoke Exposure: Yes, as a Child and as an Adult 3. Personal hx of malignancy: Yes, Type of Cancer: 4. 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 Race: White 6. Education: High School Graduate 7. BMI:Body mass index is 21.58 kg/m . Patient-entered Height: 5'2 Patient-entered Weight: 115 pounds 8. COPD: No 9. Pneumonia in the past 5 years: No 10. Is there a history of lung cancer in a first degree relative? No 11. Is there a history of lung cancer in a non-first degree relative? No 12. Is there a history of any other cancer in a first degree relative? Yes Health Maintenance Immunization History Administered Date(s) Administered COVID-19 original vaccine, age 12+ yr, monovalent (PFIZER-BIONTECH - MOHAN TOP) 05/05/2021 COVID-19 original vaccine, age 12+ yr, monovalent (PFIZER-BIONTECH - PURPLE TOP) 03/23/2021 Colonoscopy: Mammogram: 10/19/2022 DATA REVIEW I have directly visualized the testing documented: none Prior Imaging: Last CT/CTA Chest/Lungs No resulted procedures found. Last CT Chest - Impression Only No resulted procedures found. Last XR Chest - Impression Only XR CHEST 1V FRONTAL PORT Exam End: 01/18/2021 1:51 PM (Final result) Impression: IMPRESSION: No acute cardiopulmonary disease identified. ... Pulmonary Function Testing: No textual results found for the specified procedure(s). PHYSICAL EXAM: BP 130/82 Pulse 76 Resp 15 Wt 53.5 kg (118 lb) LMP (LMP Unknown) SpO2 97% BMI 21.58 kg/m Deferred ASSESSMENT and RECOMMENDATIONS: 1. Screening for lung cancer: Six year risk for lung cancer: 7.77% Https://[employer]Transcepta/Romanian/ [email or web address].[email or web address]/tiny/[email or web address]://youu.be/[email or web address] I have determined that the patient is eligible for a low dose CT based on age, absence of signs or symptoms of lung cancer, and total pack years: Yes. The patient and I engaged in shared decision making, including the use of one or more decision aids, to include benefits, harms, follow-up diagnostic testing, over-diagnosis, false positive rate, and total radiation exposure. The patient understands and feels comfortable with it: Yes. The patient was counseled on the importance of adherence to annual LDCT lung cancer screening, impact of comorbidities and ability or willingness to undergo diagnosis and treatment. The patient understands and feels comfortable with it:Yes. 2. Nicotine dependence: The patient was counseled on the importance of smoking cessation if current smoker and, if appropriate, offered additional tobacco cessation counseling services - Smoking Cessation Counseling. SMOKING CESSATION COUNSELING Smoking cessation methods including Nicotine Replacement Therapies and Behavior Modification were discussed with the patient and assistance offered. The medical conditions adversely affected by cigarette use include:COPD, Emphysema, and Lung Cancer. The patient is currently not ready to quit. I personally spent 3 minutes in counseling. The time spent in smoking cessation counseling is exclusive of any other counseling during this visit. Ronnie Urban APRN.CNP NPI #: January [id number], [id number] 10:23 AM documented in this encounter [facility] 01-05-2023 Miscellaneous Notes TC to patient who is given providers message below. Patient declines beginning medication and states she has known too many people who take cholesterol medications and feel like crap and she is not going to do that. Patient is agreeable to follow up appointment and was scheduled in February with Dr. Wang. Patient advised to continue to watch the fast/fatty foods in her diet and exercise. CROW Scott ----- Message from Ronn Wang MD sent at 01/05/2023 3:47 PM EST ----- 1) Cholesterol too high. Aside from low fast diet, start atorvastatin 10 mg at bedtime. Schedule follow up in 2 months with repeat fasting lipids and repeat BP echeck. 2) All other labs okay. documented in this encounter [facility] 01-04-2023 Wanda Mckeon APRN.EMS DRIVER - 01/04/2023 11:51 AM EST Screening schedule The following prevention plan is recommended: Pneumococcal Vaccine: 65+(1 - PCV) Never done DTaP,Tdap,Td Vaccine(1 - Tdap) Never done Colorectal Cancer Screening Never done Lung Cancer Screening Never done Shingrix Vaccine(1 of 2) Never done RSV Vaccine(1 - 1-dose 60+ series) Never done WHAT YOU CAN DO TO PREVENT FALLS Many falls can be prevented. By making some changes, you can lower your chances of falling. Four things YOU can do to prevent falls for you* and your caregiver 1. Begin a regular exercise program Exercise is one of the most important ways to lower your chances of falling. It makes you stronger and helps you feel better. Exercises that improve balance and coordination (like Francois Chi) are the most helpful. Lack of exercise leads to weakness and increases your chances of falling. Ask your doctor or health care provider about the best type of exercise program for you. 2. Have your health care provider review your medicines Have your doctor or pharmacist review all the medicines you take, even plqc-[id number]-[id number] medicines. As you get older, the way medicines work in your body can change. Some medicines, or combinations of medicines, can make you sleepy or dizzy and can cause you to fall. 3. Have your vision checked Have your eyes checked by an eye doctor at least once a year. You may be wearing the wrong glasses or have a condition like glaucoma or cataracts that limits your vision. Poor vision can increase your chances of falling. 4. Make your home safer About half of all falls happen at home. To make your home safer: Remove things you can trip over (like papers, books, clothes, and shoes) from stairs and places where you walk. Remove small throw rugs or use double-sided tape to keep the rugs from slipping. Keep items you use often in cabinets you can reach easily without using a step stool. Have grab bars put in next to your toilet and in the tub or shower. Use non-slip mats in the bathtub and on shower floors. Improve the lighting in your home. As you get older, you need brighter lights to see well. Hang light-weight curtains or shades to reduce glare. Have handrails and lights put in on all staircases. Wear shoes both inside and outside the house. Avoid going barefoot or wearing slippers. For more information, contact: Centers for Disease Control and Prevention www.cdc.gov/injury * This information may not apply if you have certain medical conditions. documented in this encounter [facility] 01-04-2023 History of Present illness Narrative Elida Penaloza is a 67 year old female here for a Medicare wellness visit. Medicare Health Risk Assessment General Health Very good Exercise: Minutes/Day 60 min Exercise: Days/Week 3 days a week Alcohol: Daily Use Monthly or less Alcohol: Drinks/Day Less than 1 a month Alcohol: 6 or more drinks Never Feel off balance No Concerns: Teeth/Dentures No Concerns: Sexual function No Troubled by feelings No Frequency: Eating healthy diet Nearly every day ADLs requiring help None of the above Safety precautions in home/vehicle Yes Smoke, vape, chews tobacco Yes, and I might quit Difficulty hearing No Difficulty seeing No Current Providers Specialists: I have reviewed specialist-related care of the patient in the medical record. Current care team: Patient Care Team: Ronn Wang MD as PCP - General (Internal Medicine) Charles Babb, DAVID as Specialty 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 (Hematology/Oncology) Cris Simpson MD, MD as Physician (Radiation Oncology) Salvador Carbone MD (Hematology/Oncology) Outside specialists seen: none Medical/Family history review Reviewed and updated problem list, medical/surgical/family/social history, medications, and allergies. Opioid use review Opioid Medications (last 90 days) Some values may be hidden. Unless noted otherwise, only the newest values recorded on each date are displayed. Opioid Medications No data to display. Depression screening Depression Screening PHQ-2 Score 09/11/2022 0 Depression screening tool completed and reviewed. Based on score and interview, patient is not at risk for depression. Screening tool discussed with patient, and I recommended no further intervention at this time. Cognitive screening Mini Cog Score: 4 Cognitive screening reviewed and no further action needed (score 3-5) Functional Observation Was the patient's timed Up & Go test unsteady or ? 12 seconds? No Advance Care Planning Patient did not wish or was not able to name a surrogate decision maker or provide an advance care plan Measurements BP 140/90 Pulse 85 Resp 18 Ht 5' 2 (1.58m) Wt 116 lb (52.6kg) SpO2 96% BMI 21.21 kg/(m^2). Additional screenings: Vision Screening Right eye - Without correction: 20/25 With correction: Left eye - Without correction: 20/50 With correction: Both eyes - Without correction: 20/25 With correction: Assessment/Plan Welcome to Medicare preventive visit (Z00.00) - Counseled on healthy diet and regular exercise - Fall avoidance information provided - Personalized prevention plan provided - Smoking cessation encouraged; discussed risks to health and quitting strategies. Patient is preparing to quit Additional Concerns The following concerns were also discussed with the patient: Chronic bilateral shoulder pain-worsening. 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 She reports white coat HTN. Does not check BP at home. Denies headache, chest pain, palpitations, dyspnea, and peripheral edema. Last 4 Encounter BP Readings: Date: BP: 01/04/2023 140/90 11/29/2022 172/82 09/14/2022 150/84 06/23/2022 162/90 BP 140/90 Pulse 85 Resp 18 Ht 157.5 cm (5' 2) Wt 52.6 kg (116 lb) LMP (LMP Unknown) SpO2 96% BMI 21.22 kg/m Physical Exam Vitals reviewed. Constitutional: Appearance: Normal appearance. Cardiovascular: Rate and Rhythm: Normal rate and regular rhythm. Pulses: Normal pulses. Heart sounds: Normal heart sounds. No murmur heard. Pulmonary: Effort: Pulmonary effort is normal. Breath sounds: Normal breath sounds. No wheezing, rhonchi or rales. Musculoskeletal: Right shoulder: Tenderness (AC joint) present. No crepitus. Normal range of motion. Normal strength. Left shoulder: Tenderness (AC joint) present. No crepitus. Normal range of motion. Normal strength. Right lower leg: No edema. Left lower leg: No edema. Comments: Bilateral shoulders- positive Ni and Neer Skin: General: Skin is warm and dry. Neurological: Mental Status: She is alert. ASSESSMENT/PLAN: 1. Medicare welcome exam - ICD9: V70.0, ICD10: Z00.00 (primary diagnosis) See Medicare Wellness plan 2. Chronic pain of both shoulders - ICD9: 719.41, 338.29, ICD10: M25.511, G89.29, M25.512 Suspect osteoarthritis from overuse - XR SHOULDER GENERAL 3V OR MORE AP/TRUE AP/OTHER LEFT - XR SHOULDER GENERAL 3V OR MORE AP/TRUE AP/OTHER RIGHT - CONSULT TO PHYSICAL THERAPY - OTC analgesics as needed - follow-up if pain persists or worsens despite above treatment 3. Elevated blood pressure reading - ICD9: 796.2, ICD10: R03.0 Suspected [place] elevation - Encouraged dietary sodium restriction/DASH diet - Recommended regular aerobic exercise. - Recommend home blood pressure monitoring, to bring results in on next visit - Recheck in 3 months, sooner if needed. - Goal of BP <130/80 4. Vitamin D deficiency - ICD9: 268.9, ICD10: E55.9 Recheck - VITAMIN D 25 HYDROXY 5. Osteopenia after menopause - ICD9: 733.90, V49.81, ICD10: M85.80, Z78.0 - COMP METABOLIC PANEL 6. Encounter for screening for lung cancer - ICD9: V76.0, ICD10: Z12.2 - CONSULT LUNG CANCER SCREENING CLINIC 7. Colon cancer screening - ICD9: V76.51, ICD10: Z12.11 - COLOGUARD 8. Encounter for lipid screening for cardiovascular disease - ICD9: V77.91, V81.2, ICD10: Z13.220, Z13.6 - LIPID PANEL BASIC Wanda Older, DATABASE SOFTWARE TECHNICIAN.EMS DRIVER documented in this encounter [facility] 12-27-2022 Miscellaneous Notes R mammogram due in June 2023. Just went through her chart and reviewed with mamm. tech. Per Dr. Rivera's last note-R annual mamm. Thank you. Vanesa Cortes APRN.CNP Is she supposed to have Q 6 mo? Last OV states yearly mamm. Amber Haider LPN Patient presented at [facility] front of house manager as she was told she should get mammograms twice per year due to her history. Patient scheduled a screening mammogram as ordered for today but was turned away as Medicare will only pay for 1 screening mammogram per 366 days. Please file a different/diagnostic mammogram that Medicare will cover. Lilly Barkley documented in this encounter [facility] 11-29-2022 History of Present illness Narrative Chief Complaint Patient presents with: Established Patient HPI: Elida Penaloza is a 67 year old female who presents here today for follow up breast cancer. Per Dr. Rivera's previous note: H/o 40+ year of tobacco use quit smoking May 2020. She presented with an abnormal left breast mass since July. She has no history of breast trauma or mastitis. She denies any pain, bleeding or discharge from her nipple. Family history of breast cancer mother was diagnosed with breast cancer at age 61. No other family members with breast or ovarian cancer. Previous total hysterectomy from trauma. She had a mammogram on 09/04/2020 and subsequent diagnostic mammogram with ultrasound which showed a solid spiculated appearing lesion in the left upper outer quadrant measure 15 x 13 x 17 mm. In addition 4 x 4 x4 mm hypoechogenic lesion present deep to the nipple. Subsequent needle biopsy of the breast lesion at 2 o'clock position consistent with invasive moderately differentiated ductal carcinoma. Estrogen receptor strongly +95%, progesterone receptor -0%, HER-2/sara -0 by IHC. Subsequently had CT scan chest abdomen pelvis which showed diverticulosis, and a spiculated mass deep in the breast with prominent left axillary lymph node. There was no evidence of metastatic disease. She saw Dr. Tammie De La Torre initially for her breast cancer. They discussed possibility of mastectomy versus lumpectomy with sentinel lymph node biopsy followed by radiation treatment. She decided to have neoadjuvant chemotherapy for breast cancer. Neoadjuvant chemotherapy: Adriamycin and cyclophosphamide every 14 weeks & Neulasta x 4 Paclitaxel weekly x 12 (01/28/2021 -04/30) Breast MRI and biopsy of the left breast lesion at 2 o'clock after completion of chemotherapy reviewed residual cancer. In addition, a 0.4 cm enhancing focus was noted at 3:00 location was suspicious and second-look US was recommended. No axillary lymphadenopathy was noted and a clip was reported in the axilla (likely from excision of LN). FINAL DIAGNOSIS A. Breast, left 3:00 subareolar, X clip placement, ultrasound-guided core needle biopsy: - Invasive mammary carcinoma with lobular features, provisional Gabriele grade 2, 3 mm in greatest dimension. Estrogen Receptor (ER) Positive 91-100 % Stain intensity: moderate to strong Internal controls: absent External controls: appropriately stained Progesterone Receptor (TN) Positive 91-100 % Stain intensity: moderate to strong Internal controls: absent External controls: appropriately stained HER2 (ERBB2) IMMUNOHISTOCHEMISTRY ASSAY Interpretation: NEGATIVE for HER2 (ERBB2) Expression Score: 1+ US was performed and MRI biopsy was performed on 07/05/2021 reporting Invasive mammary carcinoma with lobular features, 3 mm, Grade 2, ER+TN+HER2 -. (Per review with radiology this is the area initially seen on imaging in 2020 that was not biopsied and does not appear to have responded to treatment. FINAL DIAGNOSIS A. Breast, left 3:00 subareolar, X clip placement, ultrasound-guided core needle biopsy: - Invasive mammary carcinoma with lobular features, provisional Gabriele grade 2, 3 mm in greatest dimension. Estrogen Receptor (ER) Positive 91-100 % Stain intensity: moderate to strong Internal controls: absent External controls: appropriately stained Progesterone Receptor (TN) Positive 91-100 % Stain intensity: moderate to strong Internal controls: absent External controls: appropriately stained HER2 (ERBB2) IMMUNOHISTOCHEMISTRY ASSAY Interpretation: NEGATIVE for HER2 (ERBB2) Expression Score: 1+ She saw Dr. Lilly Tomas and subsequently had a modified radical left mastectomy on 09/02/2021. Postoperative course unremarkable, she still have a LAVERN drain with minimal drainage in her left mastectomy site. She has no significant pain or lymphedema. SURGICAL PATHOLOGY: FINAL DIAGNOSIS A. Breast, left, mastectomy: ---Multiple foci (at least 4) of invasive breast carcinoma without definitive treatment effect, all situated in the upper outer quadrant of the breast: ------Invasive mammary carcinoma with mixed ductal and lobular features, Gabriele grade 2, situated in the 2:00 aspect of the breast (Ribbon clip), measuring 9 mm in greatest dimension. ------Invasive lobular carcinoma, Gabriele grade 1, situated in the 1:00 aspect of the breast, measuring 6 mm in greatest dimension. ------Invasive mammary carcinoma with mixed ductal and lobular features, [place] grade 2, situated in the 3:00 aspect of the breast (X clip), measuring 5 mm in greatest dimension. ------Invasive ductal carcinoma, Gabriele grade 1, situated in the 1:00 aspect of the breast, measuring 2 mm in greatest dimension. ---Lymph-vascular invasion is not identified. ---The nipple and skin are negative for carcinoma. ---The background breast shows multiple (2) previous biopsy sites, multifocal atypical ductal hyperplasia (ADH), focal atypical lobular hyperplasia (ALH), and fibrocystic changes. ---Microcalcifications are present within ADH and benign breast. ---The surgical margins are negative for carcinoma by greater than 2 mm. ---Metastatic mammary carcinoma in multiple (2 of 2) intramammary lymph nodes; the largest metastatic focus measures 3.5 mm in greatest dimension. No diagnostic morphologic features of treatment effect. Extranodal extension is not identified. [2] ---Please see comment and synoptic template below. B. Surgical/medical hardware, port, removal: ---Port grossly identified (gross examination only). C. Lymph nodes, left axillary, levels 1 and 2, dissection: ---Multiple (4) lymph nodes negative for carcinoma. No diagnostic morphologic features of treatment effect. [0/4] D. Breast, left, excess lateral skin, excision: ---Negative for carcinoma. E. Breast, left, excess medial skin, excision: ---Negative for carcinoma. Diagnosis Comment The foci of invasive carcinoma do not show definitive features of treatment effect. Synoptic Report INVASIVE CARCINOMA OF THE BREAST: Resection 8th Edition - Protocol posted: 08/19/2020 INVASIVE CARCINOMA OF THE BREAST, RESECTION - A, C SPECIMEN Procedure Total mastectomy Specimen Laterality Left TUMOR Tumor Site Upper outer quadrant Histologic Type Histologic Type Comment Multiple histologic types; largest focus is invasive mammary carcinoma Histologic Grade (Gabriele Histologic Score) Glandular (Acinar) / Tubular Differentiation Score 3 Nuclear Pleomorphism Score 2 Mitotic Rate Score 1 Overall Grade Grade 2 (scores of 6 or 7) Tumor Size Greatest dimension of largest invasive focus (Millimeters): 9 mm Tumor Focality Multiple foci of invasive carcinoma Number of Foci At least: 4 Ductal Carcinoma In Situ (DCIS) Not identified Lobular Carcinoma In Situ (LCIS) Not identified Lymphovascular Invasion Not identified Dermal Lymphovascular Invasion Not identified Microcalcifications Present in non-neoplastic tissue Treatment Effect in the Breast No definite response to presurgical therapy in the invasive carcinoma Treatment Effect in the Lymph Nodes No definite response to presurgical therapy in metastatic carcinoma MARGINS Margin Status for Invasive Carcinoma All margins negative for invasive carcinoma Distance from Invasive Carcinoma to Closest Margin Greater than: 2 mm REGIONAL LYMPH NODES Regional Lymph Node Status Tumor present in regional lymph node(s) Number of Lymph Nodes with Macrometastases 2 Number of Lymph Nodes with Micrometastases 0 Size of Largest Aubrie Metastatic Deposit 3.5 mm Extranodal Extension Not identified Total Number of Lymph Nodes Examined (sentinel and non-sentinel) 6 Regional Lymph Node Comment Metastatic disease was identified in intramammary lymph nodes PATHOLOGIC STAGE CLASSIFICATION (pTNM, AJCC 8th Edition) Reporting of pT, pN, and (when applicable) pM categories is based on information available to the pathologist at the time the report is issued. As per the AJCC (Chapter 1, 8th Ed.) it is the managing physician s responsibility to establish the final pathologic stage based upon all pertinent information, including but potentially not limited to this pathology report. TNM Descriptors m (multiple foci of invasive carcinoma) y (post-treatment) pT Category pT1b pN Category pN1a Breast Biomarker Testing Performed on Previous Biopsy Estrogen Receptor (ER) Status Positive (greater than 10% of cells demonstrate nuclear positivity) Percentage of Cells with Nuclear Positivity 95 % Breast Biomarker Testing Performed on Previous Biopsy Progesterone Receptor (PgR) Status Negative Breast Biomarker Testing Performed on Previous Biopsy HER2 (by immunohistochemistry) Negative (Score 0) Testing Performed on Case Number Performed by outside institution (not reviewed) on 2:00 carcinoma Current therapy:Femara No new concerns today. Appetite:Good. Wt. stable. Energy level:It's good. Denies fevers or recent illness. Resp:denies cough or sob Cardiac:denies chest pain/palpitations GI:denies abd pain, n/v, moving bowels regularly :denies dysuria/hematuria Extrem:denies new pain, occ L knee pain Endo:denies hot flashes Neuro:denies symptoms of neuropathy Skin:denies rashes Heme:denies bleeding The ROS is otherwise negative. Past medical history, appointments, medications, allergies reviewed. No changes. EXAM: BP 172/82 Pulse 70 Temp 36.2 C (97.2 F) (Temporal) Wt 54 kg (119 lb) LMP (LMP Unknown) SpO2 100% BMI 21.77 kg/m APPEARANCE Well appearing, alert, in no acute distress, well-hydrated, well nourished. HEART RRR with normal S1 and S2, no murmurs LUNG clear to auscultation BREAST FEMALE R no mass/nodule, L mastectomy scar no nodule LYMPH NODES No cervical lymphadenopathy, No supraclavicular lymphadenopathy, and No axillary lymphadenopathy. ABDOMEN bowel sounds normoactive, soft, non-tender EXTREMITIES No edema NEURO Awake, alert and oriented x 3, Normal gait, and No involuntary motions. SKIN Skin color, texture, turgor normal, no suspicious rashes or lesions LABS: BMP: Pending ASSESSMENT/PLAN: 1. Malignant neoplasm of upper-outer quadrant of left breast in female, estrogen receptor positive (HCC) - ICD9: 174.4, V86.0, ICD10: C50.412, Z17.0 Clinical stage 2b, ER positive, TN negative, HER-2 not overexpressed breast cancer. (ER 95% positive; Ki-67 index 10%) multifocal invasive breast cancer (invasive ductal & invasive lobular carcinoma) Partial response to neoadjuvant chemotherapy treatment S/p modified radical left mastectomy Pathological stage IIA, ypT1b, p N1a; ER positive/HER2 not overexpressed Completed radiation therapy. Abemaciclib not indicated because of low Ki-67. - No concerning findings on exam. - Overall tolerating femara/zometa well. - Continue femara. - Continue zometa every 6 months with BMP-for a total of 6 doses. - #3 Zometa as scheduled today. - R mammogram due June 2023. - Follow up as scheduled otherwise. - Pt. aware to call office with any questions/concerns. The patient indicates understanding of these issues and agrees with the plan. All documentation from previous visit of 06/14/22-Dr. Rivera/myself was copied and pasted, documentation has been reviewed and edited as necessary for today's visit. Vanesa Cortes APRN.CHARI documented in this encounter [facility] 11-01-2022 Miscellaneous Notes [facility] msg sent to Patient. Wanda Dominique COUNCIL MEMBER has put in an order for fasting labs. Nothing to eat after 9 PM the night prior to coming in to have your labs done, please take all your medications as prescribed. You can drink coffee the morning you come in but it has to be black, no cream or sugar. Drink plenty of water that morning. Lab is open Monday-Monday 7 AM-5 PM, or Monday 7:30 AM-noon. Fannie Truong LPN Fasting labs ordered Wanda Reid APRN.CNP Scheduled patient for physical on 01-04-23 with Business Development Representative. Patient asking if she should do labs prior to this appt? Please notify patient via [facility]. documented in this encounter [facility] 10-19-2022 History of Present illness Narrative Radiology Service Progress Note PATIENT NAME: Elida Penaloza DATE OF SERVICE: October 19, 2022 TIME: 10:49 AM PATIENT IDENTITY VERIFICATION COMPLETED USING TWO (2) IDENTIFIERS: Name and Date of confirmed by patient verbally. FALL SCREENING: Has the patient had 2 falls in the last year or 1 fall with injury or currently using an Ambulatory Assistive Device (Walker, Cane, Wheelchair, Crutches, etc.)? No PATIENT GENDER DATA: Female. status: : No status: NO. PATIENT RELEVANT IMPLANT DATA REVIEWED: Not Applicable RADIOLOGY DEPARTMENT: Ultrasound PERIPHERAL IV DATA: Not applicable SIGNED BY: Anastasia Aguilera RDMS October 19, 2022 10:49 AM documented in this encounter [facility] 10-03-2022 Miscellaneous Notes Patients mailbox is full - attempted to call about [employer] study and the patients onboarding survey. Patient survey resent. Trice Doan RN [phone] documented in this encounter [facility] 09-15-2022 Miscellaneous Notes Spoke with the patient about resetting survey and it had been marked as ineligible due to patient marking not a [facility] patient. Resetting surveys now. Trice Doan RN documented in this encounter [facility] 09-14-2022 History of Present illness Narrative HISTORY OF PRESENT ILLNESS: Elida Penaloza is a 67 year old female history left breast cancer dx 09-04-20, had NAC with dd AC T then mastectomy. ypT1N1. On letrozole since November 2021. Notes some left arm chest discomfort CLINICAL IMPRESSION: Breast cancer as above. RECOMMENDATION/PLAN: 1. Plan letrozole 5-7 years 2. Left axillary US 3. See back 6 months or as indicated. Written and verbal health teaching given to patient, patient verbalizes understanding and agrees with treatment plan. PAST MEDICAL HISTORY Diagnosis Date Anemia 01/12/2021 Breast cancer (HCC) Cellulitis 03/24/2021 Nicotine use disorder, F17.2 03/25/2021 PAST SURGICAL HISTORY Procedure Laterality Date BREAST BIOPSY HX Left 09/24/2020 INSJ TUNNELED CTR VAD W/SUBQ PORT AGE 7 YR/> 01/18/2021 and removal of old port a cath LIGATE FALLOPIAN TUBE 1989 PAST SURGICAL HISTORY OF 1984 Bunions removed from both feet PORTOCATH PLACEMENT 11/04/2020 malfunctioned FAMILY HISTORY Problem Relation Age of Onset Breast Cancer Mother Melanoma Father No Known Problems Sister Melanoma Brother Seizures Brother other (AV malformation brain) Brother Social History Tobacco Use Smoking status: Every Day Packs/day: 1.00 Years: 45.00 Total pack years: 45.00 Types: Cigarettes Smokeless tobacco: Never Tobacco comments: Pt has cut back to 1/4 pack daily. Vaping Use Vaping Use: Never used Substance Use Topics Alcohol use: Never Comment: rare 1 drink Drug use: Never ALLERGIES: ALLERGIES Allergen Reactions Covid-19 (Sars-Cov-* Hives CURRENT OUTPATIENT MEDICATIONS: letrozole (FEMARA) 2.5 mg tablet Take 1 tablet by mouth once daily. ergocalciferol 50,000 unit capsule (VITAMIN D2, DRISDOL) Take 1 capsule by mouth one time a week. MELATONIN ORAL Take 1 tablet by mouth at bedtime as needed. REVIEW OF SYSTEMS: GENERAL: No fever, night sweats, weight loss or malaise. All other reviewed and negative other than HPI. PHYSICAL EXAMINATION: VITAL SIGNS: BP 150/84 Pulse 88 Temp (Src) 97.7 (Temporal) Wt 115 lb 8 oz (52.4kg) SpO2 96% GENERAL APPEARANCE: Well appearing, in no acute distress, alert and oriented x3, well-hydrated, well nourished. NECK: Supple, no JVD or lymphadenopathy, LUNGS: Lungs clear to auscultation, no wheezing or rhonchi. BACK: Non tender to gentle percussion. Spine range of motion normal. Muscular strength intact, no joint swelling, deformity or tenderness. LEFT CHEST: Smooth mastectomy scar, no masses or adenopathy I spent a total of 40 minutes on the date of the service which included preparing to see the patient, [id number] patient care, completing clinical documentation, obtaining and/or reviewing separately obtained history, performing a medically appropriate examination, counseling and educating the patient/family/caregiver, ordering medications, tests, or procedures, independently interpreting results (not separately reported), and communicating results to the patient/family/caregiver. Electronically Signed: Salvador Carbone MD September 14, 2022 8:29 AM documented in this encounter [facility] 08-30-2022 Miscellaneous Notes Scheduled pt in first available OV apt spot with any provider on 09/14 Please see my chart message. Pt. needs OV. Thank you. Vanesa Cortes APRN.CNP documented in this encounter [facility] 07-04-2022 Miscellaneous Notes PATIENT RETURNED TO TWISTING MACHINE OPERATOR NOTIFYING US THAT, IF A PRESCRIPTION IS NEEDED IT NEEDS TO GO TO [facility]. Divine Junior Patient aware. Divine Junior Orders in. Please advise pt. to go to lab. Thank you. Vanesa Cortes APRN.CNP PATIENT PRESENTED AT TWISTING MACHINE OPERATOR STATING SHE IS EXPERIENCING A UTI AND IS REQUESTING A URINE SAMPLE BE TAKEN TO CONFIRM. PLEASE ASSIST. Divine Junior documented in this encounter [facility] 06-23-2022 History of Present illness Narrative Subjective HPI HPI Elida Penaloza is a 67 year old female who presents today for CC of left elbow pain after fall. This started few hours ago. Has tried nothing for relief. Symptoms are worsened by rom. Denies history of surgery or injury to left elbow. Denies numbness and tingling of left elbow. .Patient presents with: Trauma: Left elbow injury, fell and landed directly on it happened today PAST MEDICAL HISTORY Diagnosis Date Anemia 01/12/2021 Breast cancer (HCC) Cellulitis 03/24/2021 Nicotine use disorder, F17.2 03/25/2021 PAST SURGICAL HISTORY Procedure Laterality Date BREAST BIOPSY HX Left 09/24/2020 INSJ TUNNELED CTR VAD W/SUBQ PORT AGE 5 YR/> 01/18/2021 and removal of old port a cath LIGATE FALLOPIAN TUBE 1989 PAST SURGICAL HISTORY OF 1984 Bunions removed from both feet PORTOCATH PLACEMENT 11/04/2020 malfunctioned ALLERGIES Covid-19 (Sars-Cov-2) Vaccine, Maryjo Cell MEDICATIONS letrozole (FEMARA) 2.5 mg tablet Take 1 tablet by mouth once daily. ergocalciferol 50,000 unit capsule (VITAMIN D2, DRISDOL) Take 1 capsule by mouth one time a week. MELATONIN ORAL Take 1 tablet by mouth at bedtime as needed. FAMILY HISTORY Problem Relation Age of Onset Breast Cancer Mother Melanoma Father No Known Problems Sister Melanoma Brother Seizures Brother other (AV malformation brain) Brother Social History Tobacco Use Smoking status: Every Day Packs/day: 1.00 Years: 45.00 Pack years: 45.00 Types: Cigarettes Smokeless tobacco: Never Tobacco comments: Pt has cut back to 1/4 pack daily. Vaping Use Vaping Use: Never used Substance Use Topics Alcohol use: Never Comment: rare 1 drink Drug use: Never ROS Objective Blood pressure 162/90, pulse 92, temperature 36.8 C (98.3 F), resp. rate 19, weight 50.7 kg (111 lb 12.8 oz), SpO2 99 %. Physical Exam Constitutional: General: She is not in acute distress. Appearance: She is not toxic-appearing or diaphoretic. HENT: Head: Normocephalic and atraumatic. Cardiovascular: Pulses: Radial pulses are 2+ on the left side. Pulmonary: Effort: Pulmonary effort is normal. No accessory muscle usage or respiratory distress. Musculoskeletal: Left elbow: Swelling present. No deformity, effusion or lacerations. Decreased range of motion. Tenderness present in radial head. Neurological: Mental Status: She is alert and oriented to person, place, and time. ASSESSMENT/PLAN: 1. Elbow injury, initial encounter - ICD9: 959.3, ICD10: S59.909A -no bony abnormality noted on xray -placed in sling -Rest, Ice, Compression, Elevation discussed -discussed use of nsaids -follow up with primary care if symptoms persist/worsen in 10-14 days - XR ELBOW SPECIAL VIEWS AP/LAT/OTHER LEFT IMPRESSION: No acute bone abnormality. Dictated by : MD Mt RIOS APRN.EMS DRIVER documented in this encounter [facility] 06-14-2022 Miscellaneous Notes Appointment notes updated/added. Check out comments: - Continue zometa every 6 months with BMP-for a total of 6 doses. - Zometa as scheduled tomorrow. - R mammogram due early 2022. - Follow up as scheduled otherwise. - Pt. aware to call office with any questions/concerns. documented in this encounter [facility] 06-14-2022 History of Present illness Narrative Chief Complaint Patient presents with: Established Patient HPI: Elida Penaloza is a 67 year old female who presents here today for follow up breast cancer. Per Dr. Rivera's previous note: H/o 40+ year of tobacco use quit smoking May 2020. She presented with an abnormal left breast mass since July. She has no history of breast trauma or mastitis. She denies any pain, bleeding or discharge from her nipple. Family history of breast cancer mother was diagnosed with breast cancer at age 61. No other family members with breast or ovarian cancer. Previous total hysterectomy from trauma. She had a mammogram on 09/04/2020 and subsequent diagnostic mammogram with ultrasound which showed a solid spiculated appearing lesion in the left upper outer quadrant measure 15 x 13 x 17 mm. In addition 4 x 4 x4 mm hypoechogenic lesion present deep to the nipple. Subsequent needle biopsy of the breast lesion at 2 o'clock position consistent with invasive moderately differentiated ductal carcinoma. Estrogen receptor strongly +95%, progesterone receptor -0%, HER-2/sara -0 by IHC. Subsequently had CT scan chest abdomen pelvis which showed diverticulosis, and a spiculated mass deep in the breast with prominent left axillary lymph node. There was no evidence of metastatic disease. She saw Dr. Tammie De La Torre initially for her breast cancer. They discussed possibility of mastectomy versus lumpectomy with sentinel lymph node biopsy followed by radiation treatment. She decided to have neoadjuvant chemotherapy for breast cancer. Neoadjuvant chemotherapy: Adriamycin and cyclophosphamide every 14 weeks & Neulasta x 4 Paclitaxel weekly x 12 (01/28/2021 -04/30) Breast MRI and biopsy of the left breast lesion at 2 o'clock after completion of chemotherapy reviewed residual cancer. In addition, a 0.4 cm enhancing focus was noted at 3:00 location was suspicious and second-look US was recommended. No axillary lymphadenopathy was noted and a clip was reported in the axilla (likely from excision of LN). FINAL DIAGNOSIS A. Breast, left 3:00 subareolar, X clip placement, ultrasound-guided core needle biopsy: - Invasive mammary carcinoma with lobular features, provisional [place] grade 2, 3 mm in greatest dimension. Estrogen Receptor (ER) Positive 91-100 % Stain intensity: moderate to strong Internal controls: absent External controls: appropriately stained Progesterone Receptor (TN) Positive 91-100 % Stain intensity: moderate to strong Internal controls: absent External controls: appropriately stained HER2 (ERBB2) IMMUNOHISTOCHEMISTRY ASSAY Interpretation: NEGATIVE for HER2 (ERBB2) Expression Score: 1+ US was performed and MRI biopsy was performed on 07/05/2021 reporting Invasive mammary carcinoma with lobular features, 3 mm, Grade 2, ER+TN+HER2 -. (Per review with radiology this is the area initially seen on imaging in 2020 that was not biopsied and does not appear to have responded to treatment. FINAL DIAGNOSIS A. Breast, left 3:00 subareolar, X clip placement, ultrasound-guided core needle biopsy: - Invasive mammary carcinoma with lobular features, provisional [place] grade 2, 3 mm in greatest dimension. Estrogen Receptor (ER) Positive 91-100 % Stain intensity: moderate to strong Internal controls: absent External controls: appropriately stained Progesterone Receptor (TN) Positive 91-100 % Stain intensity: moderate to strong Internal controls: absent External controls: appropriately stained HER2 (ERBB2) IMMUNOHISTOCHEMISTRY ASSAY Interpretation: NEGATIVE for HER2 (ERBB2) Expression Score: 1+ Interim history: She saw Dr. Lilly Tomas and subsequently had a modified radical left mastectomy on 09/02/2021. Postoperative course unremarkable, she still have a LAVERN drain with minimal drainage in her left mastectomy site. She has no significant pain or lymphedema. SURGICAL PATHOLOGY: FINAL DIAGNOSIS A. Breast, left, mastectomy: ---Multiple foci (at least 4) of invasive breast carcinoma without definitive treatment effect, all situated in the upper outer quadrant of the breast: ------Invasive mammary carcinoma with mixed ductal and lobular features, [place] grade 2, situated in the 2:00 aspect of the breast (Ribbon clip), measuring 9 mm in greatest dimension. ------Invasive lobular carcinoma, [place] grade 1, situated in the 1:00 aspect of the breast, measuring 6 mm in greatest dimension. ------Invasive mammary carcinoma with mixed ductal and lobular features, [place] grade 2, situated in the 3:00 aspect of the breast (X clip), measuring 5 mm in greatest dimension. ------Invasive ductal carcinoma, [place] grade 1, situated in the 1:00 aspect of the breast, measuring 2 mm in greatest dimension. ---Lymph-vascular invasion is not identified. ---The nipple and skin are negative for carcinoma. ---The background breast shows multiple (2) previous biopsy sites, multifocal atypical ductal hyperplasia (ADH), focal atypical lobular hyperplasia (ALH), and fibrocystic changes. ---Microcalcifications are present within ADH and benign breast. ---The surgical margins are negative for carcinoma by greater than 2 mm. ---Metastatic mammary carcinoma in multiple (2 of 2) intramammary lymph nodes; the largest metastatic focus measures 3.5 mm in greatest dimension. No diagnostic morphologic features of treatment effect. Extranodal extension is not identified. [2] ---Please see comment and synoptic template below. B. Surgical/medical hardware, port, removal: ---Port grossly identified (gross examination only). C. Lymph nodes, left axillary, levels 1 and 2, dissection: ---Multiple (4) lymph nodes negative for carcinoma. No diagnostic morphologic features of treatment effect. [0/4] D. Breast, left, excess lateral skin, excision: ---Negative for carcinoma. E. Breast, left, excess medial skin, excision: ---Negative for carcinoma. Diagnosis Comment The foci of invasive carcinoma do not show definitive features of treatment effect. Synoptic Report INVASIVE CARCINOMA OF THE BREAST: Resection 8th Edition - Protocol posted: 08/19/2020 INVASIVE CARCINOMA OF THE BREAST, RESECTION - A, C SPECIMEN Procedure Total mastectomy Specimen Laterality Left TUMOR Tumor Site Upper outer quadrant Histologic Type Histologic Type Comment Multiple histologic types; largest focus is invasive mammary carcinoma Histologic Grade ([place] Histologic Score) Glandular (Acinar) / Tubular Differentiation Score 3 Nuclear Pleomorphism Score 2 Mitotic Rate Score 1 Overall Grade Grade 2 (scores of 6 or 7) Tumor Size Greatest dimension of largest invasive focus (Millimeters): 9 mm Tumor Focality Multiple foci of invasive carcinoma Number of Foci At least: 4 Ductal Carcinoma In Situ (DCIS) Not identified Lobular Carcinoma In Situ (LCIS) Not identified Lymphovascular Invasion Not identified Dermal Lymphovascular Invasion Not identified Microcalcifications Present in non-neoplastic tissue Treatment Effect in the Breast No definite response to presurgical therapy in the invasive carcinoma Treatment Effect in the Lymph Nodes No definite response to presurgical therapy in metastatic carcinoma MARGINS Margin Status for Invasive Carcinoma All margins negative for invasive carcinoma Distance from Invasive Carcinoma to Closest Margin Greater than: 2 mm REGIONAL LYMPH NODES Regional Lymph Node Status Tumor present in regional lymph node(s) Number of Lymph Nodes with Macrometastases 2 Number of Lymph Nodes with Micrometastases 0 Size of Largest [place] Metastatic Deposit 3.5 mm Extranodal Extension Not identified Total Number of Lymph Nodes Examined (sentinel and non-sentinel) 6 Regional Lymph Node Comment Metastatic disease was identified in intramammary lymph nodes PATHOLOGIC STAGE CLASSIFICATION (pTNM, AJCC 8th Edition) Reporting of pT, pN, and (when applicable) pM categories is based on information available to the pathologist at the time the report is issued. As per the AJCC (Chapter 1, 8th Ed.) it is the managing physician s responsibility to establish the final pathologic stage based upon all pertinent information, including but potentially not limited to this pathology report. TNM Descriptors m (multiple foci of invasive carcinoma) y (post-treatment) pT Category pT1b pN Category pN1a Breast Biomarker Testing Performed on Previous Biopsy Estrogen Receptor (ER) Status Positive (greater than 10% of cells demonstrate nuclear positivity) Percentage of Cells with Nuclear Positivity 95 % Breast Biomarker Testing Performed on Previous Biopsy Progesterone Receptor (PgR) Status Negative Breast Biomarker Testing Performed on Previous Biopsy HER2 (by immunohistochemistry) Negative (Score 0) Testing Performed on Case Number Performed by outside institution (not reviewed) on 2:00 carcinoma Current therapy:Femara No new concerns today. Appetite:Great. Energy level:Good. Denies fevers or recent illness. Resp:denies cough or sob Cardiac:denies chest pain/palpitations GI:denies abd pain, n/v, moving bowels regularly :denies dysuria/hematuria Extrem:denies new pain, chronic LBP, b/l hip pain Endo:denies hot flashes Neuro:denies symptoms of neuropathy Skin:denies rashes Heme:denies bleeding The ROS is otherwise negative. Past medical history, appointments, medications, allergies reviewed. No changes. EXAM: BP 144/106 Pulse 83 Temp 36.7 C (98.1 F) (Temporal) Ht 157.5 cm (5' 2) Wt 50.3 kg (111 lb) LMP (LMP Unknown) BMI 20.30 kg/m APPEARANCE Well appearing, alert, in no acute distress, well-hydrated, well nourished. HEART RRR with normal S1 and S2, no murmurs LUNG clear to auscultation BREAST FEMALE R no mass/nodule, L mastectomy scar no nodule LYMPH NODES No cervical lymphadenopathy, No supraclavicular lymphadenopathy, and No axillary lymphadenopathy. ABDOMEN bowel sounds normoactive, soft, non-tender EXTREMITIES No edema NEURO Awake, alert and oriented x 3, Normal gait, and No involuntary motions. SKIN Skin color, texture, turgor normal, no suspicious rashes or lesions LABS: Component Latest Ref Rng & Units 07/13/2021 11/30/2021 06/14/2022 WBC 3.70 - 11.00 k/uL 8.05 6.01 4.43 RBC 3.90 - 5.20 m/uL 4.34 4.55 4.79 Hemoglobin 11.5 - 15.5 g/dL 14.7 14.8 15.4 Hematocrit 36.0 - 46.0 % 41.6 43.2 43.7 MCV 80.0 - 100.0 fL 95.9 94.9 91.2 MCH 26.0 - 34.0 pg 33.9 32.5 32.2 MCHC 30.5 - 36.0 g/dL 35.3 34.3 35.2 RDW-CV 11.5 - 15.0 % 12.1 12.6 12.2 Platelet Count 150 - 400 k/uL 169 163 171 MPV 9.0 - 12.7 fL 9.7 9.0 8.9 (L) Neut% % 69.6 70.0 64.1 Abs Neut (ANC) 1.45 - 7.50 k/uL 5.60 4.21 2.84 Lymph% % 20.4 18.8 23.0 Abs Lymph 1.00 - 4.00 k/uL 1.64 1.13 1.02 [place]% % 7.8 7.5 9.5 Abs [place] <0.87 k/uL 0.63 0.45 0.42 Eosin% % 1.4 2.8 2.7 Abs Eosin <0.46 k/uL 0.11 0.17 0.12 Baso% % 0.6 0.7 0.5 Abs Baso <0.11 k/uL 0.05 0.04 <0.03 Immature Gran % % 0.2 0.2 0.2 IMMATURE GRANS (ABS) <0.10 k/uL <0.03 <0.03 <0.03 NRBC /100 WBC 0.0 0.0 0.0 Absolute nRBC <0.01 k/uL <0.01 <0.01 <0.01 DTYPE Auto Auto Auto Component Latest Ref Rng & Units 11/30/2021 12/08/2021 06/14/2022 Protein, Total 6.3 - 8.0 g/dL 6.9 6.6 7.3 Albumin 3.9 - 4.9 g/dL 4.4 4.2 4.1 Calcium 8.5 - 10.2 mg/dL 9.5 9.7 9.3 Bilirubin, Total 0.2 - 1.3 mg/dL 0.3 0.5 0.5 Alkaline Phosphatase 34 - 123 U/L 99 95 90 AST 13 - 35 U/L 19 21 30 ALT 7 - 38 U/L 17 17 29 Glucose 74 - 99 mg/dL 88 96 106 (H) BUN 7 - 21 mg/dL 21 20 19 Creatinine 0.58 - 0.96 mg/dL 0.96 0.66 0.65 Sodium 136 - 144 mmol/L 137 137 137 Potassium 3.7 - 5.1 mmol/L 3.6 (L) 3.8 3.9 Chloride 97 - 105 mmol/L 99 101 100 CO2 22 - 30 mmol/L 27 25 25 Anion Gap 9 - 18 mmol/L 11 11 12 eGFR >=60 mL/min/1.73m 66 98 98 ASSESSMENT/PLAN: 1. Malignant neoplasm of upper-outer quadrant of left breast in female, estrogen receptor positive (HCC) - ICD9: 174.4, V86.0, ICD10: C50.412, Z17.0 (primary diagnosis) Clinical stage 2b, ER positive, TN negative, HER-2 not overexpressed breast cancer. (ER 95% positive; Ki-67 index 10%) multifocal invasive breast cancer (invasive ductal & invasive lobular carcinoma) Partial response to neoadjuvant chemotherapy treatment S/p modified radical left mastectomy Pathological stage IIA, ypT1b, p N1a; ER positive/HER2 not overexpressed Completed radiation therapy. Abemaciclib not indicated because of low Ki-67. - No concerning findings on exam. - Overall tolerating femara well. - Reviewed labs with pt. - Continue femara. - Continue zometa every 6 months with BMP-for a total of 6 doses. - #2 Zometa as scheduled tomorrow. - R mammogram due early 2022. - Follow up as scheduled otherwise. - Pt. aware to call office with any questions/concerns. The patient indicates understanding of these issues and agrees with the plan. All documentation from previous visit of 11/30/21-Dr. Rivera was copied and pasted, documentation has been reviewed and edited as necessary for today's visit. Vanesa Cortes APRN.CNP documented in this encounter [facility] 05-24-2022 Miscellaneous Notes Patient called and canceled future appointments due to insurance. She will contact office to update information once she has received cards and will reschedule at that time. documented in this encounter [facility] 05-11-2022 Miscellaneous Notes 1st attempt: Unable to LM do to full VM Pt returned call, via message pt confirmed apt documented in this encounter [facility] 03-22-2022 Miscellaneous Notes Patient called back to report that the mail in pharmacy will only pay for 90 day supply. Please submit order to updated pharmacy in patient's chart. Patient has been identified by name and date of : Yes, Provider PRITESH/JUDI Patient phones for refill(s): Requested Prescriptions Pending Prescriptions Disp Refills letrozole (FEMARA) 2.5 mg tablet 90 tablet 0 Sig: Take 1 tablet by mouth once daily. Date of last office visit in primary care: 11/30/21 Last 2 Encounter Wt Readings: Date: Wt: 11/30/2021 48.8 kg (107 lb 8 oz) 11/23/2021 49 kg (108 lb) Previous labs/tests for medication: Not applicable Please advise. Thank you. Juhi Calzada Spoke with pt. She will not know until Monday who her mail order pharmacy is. When she finds out she will contact our office. She is unable to afford to pay for any out of her own pocket so she will just not take medication until she receives mail order. Bonnie Mandel LPN Patient calling to update that she is no longer able to tow picker medication from pharmacy per her insurance. She must receive medication through mail order. the patient will be out of her medication on 03/20/22. Patient was unaware that she was to provide the information for the mail order pharmacy and will call back to provide. Please notify patient of plan of care since she will be out of her medication. documented in this encounter [facility] 12-27-2021 History of Present illness Narrative AMBULATORY TELEPHONE VISIT Elida Penaloza has consented to this telephone encounter. Persons Present: patient Chief Complaint/Reason: Four week follow-up after radiation treatment. HPI: Pathological stage IIA, ypT1b ypN1, grade 2 multifocal invasive mammary carcinoma of the left breast s/p neoadjuvant chemotherapy with 4 cycles of AC followed by Taxol, s/p left modified radical mastectomy, and axillary node dissection on 09/02/21. It's ER positive (strong, 95%), TN negative (0%) and Her2 0. s/p radiation treatment finished on 11/29/21. She is doing well without any specific new complaints. She denies any pain or discomfort over the left chest wall area. She reports that redness over the left chest wall almost all resolved. Data Reviewed: None. Assessment: She is recovering well from acute radiation dermatitis. Plan: She is on Femara and is regularly followed with medical oncology. I will see her as needed. Total Time Spent: 5 minutes Cris Simpson MD documented in this encounter [facility] 11-30-2021 History of Present illness Narrative PATIENT NAME: Elida Penaloza. CLINIC NO: [id number]. ATTENDING PHYSICIAN: Abiola Rivera MD. DATE OF SERVICE: 11/30/2021 DIAGNOSIS: Clinical stage 2; T2, N1, M0; grade 2, ER positive, TN negative, HER-2 non-overexpressed; of left breast upper outer quadrant. HPI: 65-year-old with history of 40+ year of tobacco use quit smoking this May. She presented with an abnormal left breast mass since July. She has no history of breast trauma or mastitis. She denies any pain, bleeding or discharge from her nipple. Family history of breast cancer mother was diagnosed with breast cancer at age 61. No other family members with breast or ovarian cancer. Previous total hysterectomy from trauma. She had a mammogram on 09/04/2020 and subsequent diagnostic mammogram with ultrasound which showed a solid spiculated appearing lesion in the left upper outer quadrant measure 15 x 13 x 17 mm. In addition 4 x 4 x4 mm hypoechogenic lesion present deep to the nipple. Subsequent needle biopsy of the breast lesion at 2 o'clock position consistent with invasive moderately differentiated ductal carcinoma. Estrogen receptor strongly +95%, progesterone receptor -0%, HER-2/sara -0 by IHC. Subsequently had CT scan chest abdomen pelvis which showed diverticulosis, and a spiculated mass deep in the breast with prominent left axillary lymph node. There was no evidence of metastatic disease. She saw Dr. Tammie De La Torre initially last year for her breast cancer. They discussed possibility of mastectomy versus lumpectomy with sentinel lymph node biopsy followed by radiation treatment. She decided to have neoadjuvant chemotherapy for breast cancer. Neoadjuvant chemotherapy: Adriamycin and cyclophosphamide every 14 weeks & Neulasta x 4 Paclitaxel weekly x 12 (01/28/2021 -04/30) Breast MRI and biopsy of the left breast lesion at 2 o'clock after completion of chemotherapy reviewed residual cancer. In addition, a 0.4 cm enhancing focus was noted at 3:00 location was suspicious and second-look US was recommended. No axillary lymphadenopathy was noted and a clip was reported in the axilla (likely from excision of LN). FINAL DIAGNOSIS A. Breast, left 3:00 subareolar, X clip placement, ultrasound-guided core needle biopsy: - Invasive mammary carcinoma with lobular features, provisional [place] grade 2, 3 mm in greatest dimension. Estrogen Receptor (ER) Positive 91-100 % Stain intensity: moderate to strong Internal controls: absent External controls: appropriately stained Progesterone Receptor (TN) Positive 91-100 % Stain intensity: moderate to strong Internal controls: absent External controls: appropriately stained HER2 (ERBB2) IMMUNOHISTOCHEMISTRY ASSAY Interpretation: NEGATIVE for HER2 (ERBB2) Expression Score: 1+ US was performed and MRI biopsy was performed on 07/05/2021 reporting Invasive mammary carcinoma with lobular features, 3 mm, Grade 2, ER+TN+HER2 -. (Per review with radiology this is the area initially seen on imaging in 2020 that was not biopsied and does not appear to have responded to treatment. FINAL DIAGNOSIS A. Breast, left 3:00 subareolar, X clip placement, ultrasound-guided core needle biopsy: - Invasive mammary carcinoma with lobular features, provisional [place] grade 2, 3 mm in greatest dimension. Estrogen Receptor (ER) Positive 91-100 % Stain intensity: moderate to strong Internal controls: absent External controls: appropriately stained Progesterone Receptor (TN) Positive 91-100 % Stain intensity: moderate to strong Internal controls: absent External controls: appropriately stained HER2 (ERBB2) IMMUNOHISTOCHEMISTRY ASSAY Interpretation: NEGATIVE for HER2 (ERBB2) Expression Score: 1+ Interim history: She saw Dr. Lilly Tomas and subsequently had a modified radical left mastectomy on 09/02/2021. Postoperative course unremarkable, she still have a LAVERN drain with minimal drainage in her left mastectomy site. She has no significant pain or lymphedema. SURGICAL PATHOLOGY: FINAL DIAGNOSIS A. Breast, left, mastectomy: ---Multiple foci (at least 4) of invasive breast carcinoma without definitive treatment effect, all situated in the upper outer quadrant of the breast: ------Invasive mammary carcinoma with mixed ductal and lobular features, [place] grade 2, situated in the 2:00 aspect of the breast (Ribbon clip), measuring 9 mm in greatest dimension. ------Invasive lobular carcinoma, [place] grade 1, situated in the 1:00 aspect of the breast, measuring 6 mm in greatest dimension. ------Invasive mammary carcinoma with mixed ductal and lobular features, [place] grade 2, situated in the 3:00 aspect of the breast (X clip), measuring 5 mm in greatest dimension. ------Invasive ductal carcinoma, [place]rie[place] grade 1, situated in the 1:00 aspect of the breast, measuring 2 mm in greatest dimension. ---Lymph-vascular invasion is not identified. ---The nipple and skin are negative for carcinoma. ---The background breast shows multiple (2) previous biopsy sites, multifocal atypical ductal hyperplasia (ADH), focal atypical lobular hyperplasia (ALH), and fibrocystic changes. ---Microcalcifications are present within ADH and benign breast. ---The surgical margins are negative for carcinoma by greater than 2 mm. ---Metastatic mammary carcinoma in multiple (2 of 2) intramammary lymph nodes; the largest metastatic focus measures 3.5 mm in greatest dimension. No diagnostic morphologic features of treatment effect. Extranodal extension is not identified. [2/2] ---Please see comment and synoptic template below. B. Surgical/medical hardware, port, removal: ---Port grossly identified (gross examination only). C. Lymph nodes, left axillary, levels 1 and 2, dissection: ---Multiple (4) lymph nodes negative for carcinoma. No diagnostic morphologic features of treatment effect. [0/4] D. Breast, left, excess lateral skin, excision: ---Negative for carcinoma. E. Breast, left, excess medial skin, excision: ---Negative for carcinoma. Diagnosis Comment The foci of invasive carcinoma do not show definitive features of treatment effect. Synoptic Report INVASIVE CARCINOMA OF THE BREAST: Resection 8th Edition - Protocol posted: 08/19/2020 INVASIVE CARCINOMA OF THE BREAST, RESECTION - A, C SPECIMEN Procedure Total mastectomy Specimen Laterality Left TUMOR Tumor Site Upper outer quadrant Histologic Type Histologic Type Comment Multiple histologic types; largest focus is invasive mammary carcinoma Histologic Grade ([place] Histologic Score) Glandular (Acinar) / Tubular Differentiation Score 3 Nuclear Pleomorphism Score 2 Mitotic Rate Score 1 Overall Grade Grade 2 (scores of 6 or 7) Tumor Size Greatest dimension of largest invasive focus (Millimeters): 9 mm Tumor Focality Multiple foci of invasive carcinoma Number of Foci At least: 4 Ductal Carcinoma In Situ (DCIS) Not identified Lobular Carcinoma In Situ (LCIS) Not identified Lymphovascular Invasion Not identified Dermal Lymphovascular Invasion Not identified Microcalcifications Present in non-neoplastic tissue Treatment Effect in the Breast No definite response to presurgical therapy in the invasive carcinoma Treatment Effect in the Lymph Nodes No definite response to presurgical therapy in metastatic carcinoma MARGINS Margin Status for Invasive Carcinoma All margins negative for invasive carcinoma Distance from Invasive Carcinoma to Closest Margin Greater than: 2 mm REGIONAL LYMPH NODES Regional Lymph Node Status Tumor present in regional lymph node(s) Number of Lymph Nodes with Macrometastases 2 Number of Lymph Nodes with Micrometastases 0 Size of Largest Aubrie Metastatic Deposit 3.5 mm Extranodal Extension Not identified Total Number of Lymph Nodes Examined (sentinel and non-sentinel) 6 Regional Lymph Node Comment Metastatic disease was identified in intramammary lymph nodes PATHOLOGIC STAGE CLASSIFICATION (pTNM, AJCC 8th Edition) Reporting of pT, pN, and (when applicable) pM categories is based on information available to the pathologist at the time the report is issued. As per the AJCC (Chapter 1, 8th Ed.) it is the managing physician s responsibility to establish the final pathologic stage based upon all pertinent information, including but potentially not limited to this pathology report. TNM Descriptors m (multiple foci of invasive carcinoma) y (post-treatment) pT Category pT1b pN Category pN1a Breast Biomarker Testing Performed on Previous Biopsy Estrogen Receptor (ER) Status Positive (greater than 10% of cells demonstrate nuclear positivity) Percentage of Cells with Nuclear Positivity 95 % Breast Biomarker Testing Performed on Previous Biopsy Progesterone Receptor (PgR) Status Negative Breast Biomarker Testing Performed on Previous Biopsy HER2 (by immunohistochemistry) Negative (Score 0) Testing Performed on Case Number Performed by outside institution (not reviewed) on 2:00 carcinoma . All medications & allergies updated and reviewed by me. REVIEW OF SYSTEMS: CONSTITUTIONAL: No fevers, chills, nightsweats, unintended weight loss HEENT: Denies frequent or severe heaches, nasal congestion/sinus symptoms, problematic allergy problems. EYES: No diplopia or blurry vision. CARDIOVASCULAR: No chest pain, dyspnea, palpitations, orthopnea, PND, ankle edema. PULM: No dyspnea, unexplained cough. GI: No dysphagia/odynophagia, problematic reflux, constipation, diarrhea, changes in stool habits, hematochezia, melena. : No new urinary complaints, including dysuria, gross hematuria or pyuria. NEURO: No new balance problems, peripheral weakness/paresthesias or numbness of concern. MUSC-SKEL: No new joint pain, swelling, or erythema. PSY: No concerns regarding depression, anxiety or panic. INTEGUMENTARY: No new skin changes (rash, new or changing mole, new growth) PHYSICAL EXAMINATION: 65-year-old well-nourished well-developed female in no acute distress Performance status 100% BP 173/106 Pulse 47 Temp (Src) 97.8 (Temporal) Wt 105 lb (47.6kg) HEENT: Head is normocephalic, atraumatic. Sclerae white, conjunctivae pink. PEERL. EOMs are intact. Oropharynx is benign. LYMPHATICS: There is no palpable adenopathy in the neck, supraclavicular region, axillary or groin. BREASTS: Right breast without skin dimpling, nipple discharge or masses. Left mastectomy scar is healed. LAVERN drains intact with minimal serosanguineous fluid noted in bulbs. LUNGS: Lungs are clear to percussion and auscultation. HEART: Heart is normal without murmurs, gallops, or rubs. ABDOMEN: Soft and nontender without organomegaly. No masses can be palpated. EXTREMITIES: Are without edema. Left hand no skin breakdown, erythema or tenderness. Normal range of motion of her fingers NEUROLOGIC: Exam is physiologic; mild neuropathy in both hands and feet. LABS: Component Latest Ref Rng & Units 11/30/2021 WBC 3.70 - 11.00 k/uL 6.01 RBC 3.90 - 5.20 m/uL 4.55 Hemoglobin 11.5 - 15.5 g/dL 14.8 Hematocrit 36.0 - 46.0 % 43.2 MCV 80.0 - 100.0 fL 94.9 MCH 26.0 - 34.0 pg 32.5 MCHC 30.5 - 36.0 g/dL 34.3 RDW-CV 11.5 - 15.0 % 12.6 Platelet Count 150 - 400 k/uL 163 MPV 9.0 - 12.7 fL 9.0 Neut% % 70.0 Abs Neut (ANC) 1.45 - 7.50 k/uL 4.21 Lymph% % 18.8 Abs Lymph 1.00 - 4.00 k/uL 1.13 [place]% % 7.5 Abs [place] <0.87 k/uL 0.45 Eosin% % 2.8 Abs Eosin <0.46 k/uL 0.17 Baso% % 0.7 Abs Baso <0.11 k/uL 0.04 Immature Gran % % 0.2 IMMATURE GRANS (ABS) <0.10 k/uL <0.03 NRBC /100 WBC 0.0 Absolute nRBC <0.01 k/uL <0.01 DTYPE Auto Component Latest Ref Rng & Units 11/30/2021 Protein, Total 6.3 - 8.0 g/dL 6.9 Albumin 3.9 - 4.9 g/dL 4.4 Calcium 8.5 - 10.2 mg/dL 9.5 Bilirubin, Total 0.2 - 1.3 mg/dL 0.3 Alkaline Phosphatase 34 - 123 U/L 99 AST 13 - 35 U/L 19 ALT 7 - 38 U/L 17 Glucose 74 - 99 mg/dL 88 BUN 7 - 21 mg/dL 21 Creatinine 0.58 - 0.96 mg/dL 0.96 Sodium 136 - 144 mmol/L 137 Potassium 3.7 - 5.1 mmol/L 3.6 (L) Chloride 97 - 105 mmol/L 99 CO2 22 - 30 mmol/L 27 Anion Gap 9 - 18 mmol/L 11 eGFR >=60 mL/min/1.73m 66 Diagnostic right mammogram: IMPRESSION: BENIGN FINDING There is no mammographic evidence of malignancy. A 1 year screening mammogram is recommended. ASSESSMENT/PLAN: 66-year-old postmenopausal lady with history of tobacco use, presenting with clinical stage 2b, ER positive, TN negative, HER-2 not overexpressed breast cancer. 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) -Partial response to neoadjuvant chemotherapy treatment -Status modified radical postmastectomy -Pathological stage IIA, ypT1b, p N1a; ER positive/HER2 not overexpressed -Completed radiation therapy Plan: -Start Femara 2.5 mg once daily x 10 years -Abemaciclib not indicated because of low Ki-67 -Repeat CBC, CMP, and OV in 6 months -Follow-up mammogram of right breast annually 2) osteopenia in the right femoral neck -On calcium vitamin D supplement Plan: -Start zoledronic acid 4 mg IV every 6 months x 3 - 5 years -Repeat bone density in 3 years I spent 30 minutes in the visit, with more than 50% of the total elen-te-gogh time of the visit in counseling / coordination of care. Portions of this documentation were copied and pasted from previous office visit notes in order to provide a cohesive continuity of the history. The note has been reviewed and edited and updated as necessary. Abiola Rivera MD Cc: MD Cris Preston MD Stephanie A Valente, DO documented in this encounter [facility] 11-30-2021 Instructions Abiola Rivera MD - 11/30/2021 4:28 PM EDT Start Femara 2.5 mg once daily for 5 - 10 years documented in this encounter [facility] 11-30-2021 Nurse Note Est. Pt, discuss recent lab results, and starting Femara Bonnie Mandel LPN documented in this encounter [facility] 11-29-2021 Nurse Note Written discharge instructions given and reviewed with patient. Patient verbalizes understanding. Encouraged to call with any questions or concerns. Instruction for 4 week phone call follow up appointment given per Dr. Simpson. documented in this encounter [facility] 11-23-2021 History of Present illness Narrative Radiation Oncology - On Treatment Review (OTR) Note PATIENT NAME: Elida Penaloza PATIENT DIAGNOSIS: Pathological stage IIA, ypT1b ypN1, grade 2 multifocal invasive mammary carcinoma of the left breast s/p neoadjuvant chemotherapy with 4 cycles of AC followed by Taxol, s/p left modified radical mastectomy, and axillary node dissection on 09/02/21. It's ER positive (strong, 95%), TN negative (0%) and Her2 0. COURSE: post-operative AREA TREATED: Left chest wall/IM/SC/axilla CURRENT DOSE: 5200 cGy in 26 fx PLANNED DOSE: 6000 cGy in 30 fx SUBJECTIVE: She is doing well without any specific new complaints. EXAM: KPS: 90 General Appearance: Alert and oriented. No acute distress. Radiation dermatitis: moderate erythema of the left chest wall. IMAGING/LAB RESULTS: None Treatment chart checked: Yes Patient treatment site reviewed and verified:Yes Port films reviewed and current:Yes Medications started: Hydrocortisone cream as needed. ASSESSMENT/PLAN: Clinically stable. Toxicity within expected parameters. Continue radiation treatment as planned. Cris Simpson MD documented in this encounter [facility] 11-23-2021 Nurse Note Radiation Therapy - Nursing Note (OTV) PATIENT NAME: Elida Penaloza PATIENT November 23, 2021 [facility] FACILITY/LOCATION: [facility] NOTE TYPE: BREAST Subjective Data No c/o Additional Data Do you want to see a Fruit Or Nut Farmworker? No Status: Post-menopausal. Stress Scale: On a scale of 0 to 10, what number best describes how much distress you have experienced in the past week?(0 being no distress and 10 being extreme distress) 0 Social work notified: no Nursing Assessment Fatigue: none Appetite: good Nutritional Intake: Regular oral intake. Weight Gain/Loss: Yes Ambulatory weight history: Last 6 Encounter Wt Readings: Date: Wt: 11/23/2021 49 kg (108 lb) 11/16/2021 48.3 kg (106 lb 6.4 oz) 11/09/2021 49 kg (108 lb) 11/02/2021 48.5 kg (107 lb) 10/26/2021 49.4 kg (109 lb) 09/13/2021 47.6 kg (105 lb) Nausea:None Vomiting: None Bowel Function: normal bowel movements Erythema/Hyperpigmentation:moderat e Desquamation:dry desquamation Rash:moderate Skin Care: Aquaphor Skin Sensation: Within Normal Limits Focused Assessment BREAST: Lymphedema Assessment: Is the patient noting any swelling? No. SIGNED by: Cristine Teresa RN documented in this encounter [facility] 11-22-2021 History of Present illness Narrative Radiology Service Progress Note PATIENT NAME: Elida Penaloza DATE OF SERVICE: November 22, 2021 TIME: 3:29 PM PATIENT IDENTITY VERIFICATION COMPLETED USING TWO (2) IDENTIFIERS: Name and Date of confirmed by patient verbally. FALL SCREENING: Has the patient had 2 falls in the last year or 1 fall with injury or currently using an Ambulatory Assistive Device (Walker, Cane, Wheelchair, Crutches, etc.)? Yes, Patient High Risk for Falls What interventions were put in place to prevent falls during this visit? Increased Observations by Caregivers PATIENT GENDER DATA: Female. status: : No status: NO. PATIENT RELEVANT IMPLANT DATA REVIEWED: Not Applicable RADIOLOGY DEPARTMENT: Bone Density PERIPHERAL IV DATA: Not applicable SIGNED BY: RT Jasmin(R) November 22, 2021 3:29 PM documented in this encounter [facility] 11-18-2021 History of Present illness Narrative ELIDA PENALOZA [id number] 11/16/2021 [facility] [place] Department of Radiation Oncology RADIATION ONCOLOGY ELECTRON SIMULATION NOTE SITE:Lt Chest Wall DIAGNOSIS: Pathological stage IIA, ypT1b ypN1, grade 2 multifocal invasive mammary carcinoma of the left breast s/p neoadjuvant chemotherapy with 4 cycles of AC followed by Taxol, s/p left modified radical mastectomy, and axillary node dissection on 09/02/21. It's ER positive (strong, 95%), TN negative (0%) and Her2 0. FIELD NUMBER(S): B9 REASON FOR SIMULATION: Boost IMMOBILIZATION DEVICE: [employer] orfit system FIELD ARRANGEMENT: enface BLOCKING AND PAINTING AND COATING WORKER: A custom cerrobend block is necessary to shape the radiation beam and protect surrounding anatomy. VERIFICATION SIMULATION OF ELECTRON FIELD PER PLAN: no COMMENTS: Setup of the boost field was performed on the treatment machine. Templates were created for the construction of the blocks as well as daily reproducibility of the treatment field. Electronically Signed CRIS SIMPSON M.D. /dw9:08 0:20 AM documented in this encounter [facility] 11-16-2021 History of Present illness Narrative ELIDA PENALOZA [id number] 11/16/2021 [facility] [place] Department of Radiation Oncology RADIATION ONCOLOGY ELECTRON SIMULATION NOTE SITE:Lt Chest Wall DIAGNOSIS: Pathological stage IIA, ypT1b ypN1, grade 2 multifocal invasive mammary carcinoma of the left breast s/p neoadjuvant chemotherapy with 4 cycles of AC followed by Taxol, s/p left modified radical mastectomy, and axillary node dissection on 7/14/22. It's ER positive (strong, 95%), TN negative (0%) and Her2 0. FIELD NUMBER(S): B9 REASON FOR SIMULATION: Boost IMMOBILIZATION DEVICE: [employer]IO orfit system FIELD ARRANGEMENT: enface BLOCKING AND PAINTING AND COATING WORKER: A custom cerrobend block is necessary to shape the radiation beam and protect surrounding anatomy. VERIFICATION SIMULATION OF ELECTRON FIELD PER PLAN: no COMMENTS: Setup of the boost field was performed on the treatment machine. Templates were created for the construction of the blocks as well as daily reproducibility of the treatment field. Electronically Signed CRIS SIMPSON M.D. /dw9:08 0:33 AM documented in this encounter [facility] 11-09-2021 Nurse Note Radiation Therapy - Nursing Note (OTV) PATIENT NAME: Elida Penaloza PATIENT November 09, 2021 [facility] FACILITY/LOCATION: [place] NURSING NOTE TYPE: BREAST Subjective Data No c/o Additional Data Do you want to see a Fruit Or Nut Farmworker? No Status: Post-menopausal. Stress Scale: On a scale of 0 to 10, what number best describes how much distress you have experienced in the past week?(0 being no distress and 10 being extreme distress) 0 Social work notified: no Nursing Assessment Fatigue: none Appetite: good Nutritional Intake: Regular oral intake. Weight Gain/Loss: No Ambulatory weight history: Last 6 Encounter Wt Readings: Date: Wt: 11/02/2021 48.5 kg (107 lb) 10/26/2021 49.4 kg (109 lb) 09/13/2021 47.6 kg (105 lb) 09/13/2021 47.9 kg (105 lb 8 oz) 08/30/2021 48.5 kg (107 lb) 08/05/2021 47.2 kg (104 lb) Nausea:None Vomiting: None Bowel Function: normal bowel movements Erythema/Hyperpigmentation:mild Desquamation:none Rash:mild Skin Care: Aquaphor Skin Sensation: Within Normal Limits Focused Assessment BREAST: Lymphedema Assessment: Is the patient noting any swelling? No. SIGNED by: Cristine Teresa RN documented in this encounter [facility] 11-09-2021 History of Present illness Narrative Radiation Oncology - On Treatment Review (OTR) Note PATIENT NAME: Elida Penaloza PATIENT DIAGNOSIS: Pathological stage IIA, ypT1b ypN1, grade 2 multifocal invasive mammary carcinoma of the left breast s/p neoadjuvant chemotherapy with 4 cycles of AC followed by Taxol, s/p left modified radical mastectomy, and axillary node dissection on 09/02/21. It's ER positive (strong, 95%), TN negative (0%) and Her2 0. COURSE: post-operative AREA TREATED: Left chest wall/IM/SC/axilla CURRENT DOSE: 3200 cGy in 16 fx PLANNED DOSE: 5000 cGy in 25 fx SUBJECTIVE: She has mild pruritus over the left chest wall. EXAM: KPS: 90 General Appearance: Alert and oriented. No acute distress. Radiation dermatitis: mild erythema of the left chest wall. IMAGING/LAB RESULTS: None Treatment chart checked: Yes Patient treatment site reviewed and verified:Yes Port films reviewed and current:Yes Medications started: None ASSESSMENT/PLAN: Clinically stable. Toxicity within expected parameters. Continue radiation treatment as planned. Cris Simpson MD documented in this encounter [facility] 10-27-2021 Miscellaneous Notes After speaking with Dr. Luke, I spoke with the patient and explained the rationale for not using Verzenio. The lower the percentage of Ki67, the less aggressive the disease. Ki67 needs to be 20% or more to meet criteria for Verzenio. Patient verbalized understanding and was grateful for the explanation. Conchita Dinero LPN Patient has additional questions regarding Ki67 results. Was this expected? Does this mean her disease is worse than originally thought? She doesn't want to worry until 11/30/2021. Conchita Dinero LPN Can let her know that the additional testing on her pathology demonstrated the Ki67 staining at 10%. Therefore strict criteria for the use of Verzenio was not met. She needs to complete radiation before she starts on endocrine therapy and she already has an appointment with Dr. Rivera on 11/30. He can discuss plan at that point which likely will be with letrozole alone. Jamaal Luke DO documented in this encounter [facility] 10-26-2021 History of Present illness Narrative Radiation Oncology - On Treatment Review (OTR) Note PATIENT NAME: Elida Penaloza PATIENT DIAGNOSIS: Pathological stage IIA, ypT1b ypN1, grade 2 multifocal invasive mammary carcinoma of the left breast s/p neoadjuvant chemotherapy with 4 cycles of AC followed by Taxol, s/p left modified radical mastectomy, and axillary node dissection on 09/02/21. It's ER positive (strong, 95%), TN negative (0%) and Her2 0. COURSE: post-operative AREA TREATED: Left chest wall/IM/SC/axilla CURRENT DOSE: 1200 cGy in 6 fx PLANNED DOSE: 5000 cGy in 25 fx SUBJECTIVE: She is doing well without any specific new complaints. EXAM: KPS: 100 General Appearance: Alert and oriented. No acute distress. Radiation dermatitis: No IMAGING/LAB RESULTS: None Treatment chart checked: Yes Patient treatment site reviewed and verified:Yes Port films reviewed and current:Yes Medications started: None ASSESSMENT/PLAN: Clinically stable. No signs of toxicity. Continue radiation treatment as planned. Cris Simpson MD documented in this encounter [facility] 10-26-2021 Nurse Note Radiation Therapy - Nursing Note (OTV) PATIENT NAME: Elida Penaloza PATIENT October 26, 2021 [facility] FACILITY/LOCATION: [place] NURSING NOTE TYPE: BREAST Subjective Data No c/o Additional Data Do you want to see a Fruit Or Nut Farmworker? No Status: Post-menopausal. Stress Scale: On a scale of 0 to 10, what number best describes how much distress you have experienced in the past week?(0 being no distress and 10 being extreme distress) 0 Social work notified: no Nursing Assessment Fatigue: none Appetite: good Nutritional Intake: Regular oral intake. Weight Gain/Loss: No Ambulatory weight history: Last 6 Encounter Wt Readings: Date: Wt: 10/26/2021 49.4 kg (109 lb) 09/13/2021 47.6 kg (105 lb) 09/13/2021 47.9 kg (105 lb 8 oz) 08/30/2021 48.5 kg (107 lb) 08/05/2021 47.2 kg (104 lb) 07/13/2021 48.9 kg (107 lb 12.8 oz) Nausea:None Vomiting: None Bowel Function: normal bowel movements Erythema/Hyperpigmentation:none Desquamation:none Rash:none Skin Care: Aquaphor Skin Sensation: Within Normal Limits Focused Assessment BREAST: Lymphedema Assessment: Is the patient noting any swelling? No. SIGNED by: Cristine Teresa RN documented in this encounter [facility] 10-20-2021 History of Present illness Narrative REASON FOR TODAY'S VISIT: Patient presents with: Established Patient HISTORY of PRESENT ILLNESS: Eliad Penaloza is a 66 year old year old female who is s/p a LEFT modified radical mastectomy, LEFT axillary reverse lymphatic mapping breast performed by Dr. 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 ER+, TN-, HER2- PATHOLOGICAL STAGE LEFT BREAST: yp,T1b,N1 Outside slides reviewed 1/[address] excision. No post op seroma requiring drainage HISTORY: Patient was last seen for a seroma check on 09/22/2021. At that time, minimal fullness was noted along the left chest wall and patient declined aspiration. In there interim, she followed up with Dr. Dawson (Radiation Oncologist) and began adjuvant radiation treatments on Monday10/18/2021. She will follow up with Dr. Rivera (Medical oncologist) after completion of the treatments to discuss Tumor Board recommendations. Patient reports her ROM is fully recovered and she had decided to decline Breast Rehab at this time. Patient underwent a RIGHT sided mammogram earlier today She is here to discuss the findings and a wound /seroma check. REVIEW OF SYSTEMS: ROS: HEENT: Denies vision changes or headaches BREAST: Denies palpating any new breast masses, no breast pain, no skin changes, no nipple discharge ABD: Denies any abdominal pain or new changes in bowel habits MUSCULOSKELETAL: Denies any bone, joint or muscle pain IMAGING: UNILATERAL RIGHT DIGITAL DIAGNOSTIC MAMMOGRAM TOMOSYNTHESIS WITH CAD: 10/20/2021 HISTORY: Patient with history of left breast cancer s/p mastectomy, presenting for first imaging evaluation after treatment. Patient reports NO breast symptoms. RESULT: TECHNIQUE: The study was acquired using full field digital technology and interpreted from soft copy. Digital Breast Tomosynthesis (DBT) images were obtained and used to assist in the interpretation of this examination. Current study was also evaluated with a Computer Aided Detection (CAD). Comparison is made to exams dated: 07/05/2021 ultrasound biopsy, 07/05/2021 mammogram, and 07/05/2021 breast MRI - [facility]. There are scattered fibroglandular elements in right breast. There are benign post operative findings in the right breast. No significant masses, calcifications, or other findings are seen in the breast. There has been no significant interval change. IMPRESSION: BENIGN FINDING There is no mammographic evidence of malignancy. A 1 year screening mammogram is recommended. EXAMINATION: GEN alert and orientated, well nourished, calm Regional Lymph Nodes There is no concerning supraclavicular, infraclavicular or cervical lymphadenopathy. BREASTS: The patient was examined in the upright and supine position. RIGHT breast soft, no dominant masses, nipple everted, no discharge, no skin changes RIGHT axilla no palpable axillary lymphadenopathy LEFT breast surgically absent with surgical incision healing well. Soft, no dominant masses, no nipple/areolar complex, no discharge, no skin changes. No seroma. LEFT axilla no palpable axillary lymphadenopathy ABD soft, non-distended, non-tender, no organomegaly EXT ambulated independently, good ROM of upper extremities, no evidence of lymphedema IMPRESSION: Elida Penaloza is a 66 year old year old female who is s/p a LEFT modified radical mastectomy, LEFT axillary reverse lymphatic mapping breast performed by Dr. 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 ER+, TN-, HER2- PATHOLOGICAL STAGE LEFT BREAST: yp,T1b,N1 Outside slides reviewed 1/[address] + on LN excision. No post op seroma requiring drainage. No clinical or mammographic evidence of disease process PLAN:. Ms. Penaloza will follow-up with Dr. Rivera (Medical Oncologist) as scheduled, 11/30/2021. She will continue her treatments with Dr.D Simpson (Radiation Oncologist) as scheduled,. Ms. Penaloza will follow-up with us in six months.. She has our names and numbers to stay in touch if she has any questions, concerns or problems in the interim. Kelsie Mendoza PA-C cc: Ronn Wang [address] [phone] documented in this encounter [facility] 10-20-2021 Nurse Note Follow up Did patient bring outside records to appt today? : No Last mammogram on: 10/20/2021 right only hx of left mastectomy Results: see report Is the patient active on [employer] Yes Electronically Signed By: Merari Vera LPN In Department: [facility] REVIEW OF PATIENT HISTORY: OB History T0 L0 SAB0 IAB0 Ectopic0 Multiple0 Live Births0 Comment: Menarche: 14; Age at 1st : n/a; Post menopausal FAMILY HISTORY Problem Relation Age of Onset Breast Cancer Mother Melanoma Father No Known Problems Sister Melanoma Brother Seizures Brother other (AV malformation brain) Brother PAST MEDICAL HISTORY Diagnosis Date Anemia 01/12/2021 Breast cancer (HCC) Cellulitis 03/24/2021 Nicotine use disorder, F17.2 03/25/2021 PAST SURGICAL HISTORY Procedure Laterality Date BREAST BIOPSY HX Left 09/24/2020 INSJ TUNNELED CTR VAD W/SUBQ PORT AGE 5 YR/> 01/18/2021 and removal of old port a cath LIGATE FALLOPIAN TUBE 1989 PAST SURGICAL HISTORY OF 1985 Bunions removed from both feet PORTOCATH PLACEMENT 11/04/2020 malfunctioned Social History Tobacco Use Smoking status: Every Day Packs/day: 1.00 Years: 45.00 Pack years: 45.00 Types: Cigarettes Smokeless tobacco: Never Tobacco comments: Pt has cut back to 1/4 pack daily. Vaping Use Vaping Use: Never used Substance Use Topics Alcohol use: Never Comment: rare 1 drink Drug use: Never documented in this encounter [facility] 10-20-2021 History of Present illness Narrative Radiology Service Progress Note PATIENT NAME: Elida Penaloza DATE OF SERVICE: October 20, 2021 TIME: 10:20 AM PATIENT IDENTITY VERIFICATION COMPLETED USING TWO (2) IDENTIFIERS: Name and Date of confirmed by patient verbally. FALL SCREENING: Has the patient had 2 falls in the last year or 1 fall with injury or currently using an Ambulatory Assistive Device (Walker, Cane, Wheelchair, Crutches, etc.)? No PATIENT GENDER DATA: Female. status: : No status: NO. PATIENT RELEVANT IMPLANT DATA REVIEWED: Yes RADIOLOGY DEPARTMENT: Mammography PERIPHERAL IV DATA: Not applicable SIGNED BY: RT Danica(R) October 20, 2021 10:20 AM documented in this encounter [facility] 10-19-2021 Nurse Note Radiation Therapy - Nursing Note (OTV) PATIENT NAME: Elida Penaloza PATIENT October 19, 2021 [facility] FACILITY/LOCATION: [place] NURSING NOTE TYPE: BREAST Subjective Data no complaints Additional Data Do you want to see a Fruit Or Nut Farmworker? No Status: Post-menopausal. Stress Scale: On a scale of 0 to 10, what number best describes how much distress you have experienced in the past week?(0 being no distress and 10 being extreme distress) 0 Social work notified: Pt denied need to see social media developer at this time. Nursing Assessment Fatigue: none Appetite: good Nutritional Intake: Regular oral intake. Weight Gain/Loss: No Ambulatory weight history: Last 6 Encounter Wt Readings: Date: Wt: 09/13/2021 47.6 kg (105 lb) 09/13/2021 47.9 kg (105 lb 8 oz) 08/30/2021 48.5 kg (107 lb) 08/05/2021 47.2 kg (104 lb) 07/13/2021 48.9 kg (107 lb 12.8 oz) 07/13/2021 48.8 kg (107 lb 8 oz) Nausea:None Vomiting: None Bowel Function: normal bowel movements Erythema/Hyperpigmentation:none Desquamation:none Rash:none Skin Care: Aquaphor Skin Sensation: Within Normal Limits Focused Assessment BREAST: Lymphedema Assessment: Is the patient noting any swelling? No. Is the patient having limited range of motion of effected arm? No SIGNED by: Catherine Esposito RN documented in this encounter [facility] 10-19-2021 History of Present illness Narrative Radiation Oncology - On Treatment Review (OTR) Note PATIENT NAME: Elida Penaloza PATIENT DIAGNOSIS: Pathological stage IIA, ypT1b ypN1, grade 2 multifocal invasive mammary carcinoma of the left breast s/p neoadjuvant chemotherapy with 4 cycles of AC followed by Taxol, s/p left modified radical mastectomy, and axillary node dissection on 09/02/21. It's ER positive (strong, 95%), TN negative (0%) and Her2 0. COURSE: post-operative AREA TREATED: Left chest wall/IM/SC/axilla CURRENT DOSE: 400 cGy in 2 fx PLANNED DOSE: 5000 cGy in 25 fx SUBJECTIVE: She is doing well without any specific new complaints. EXAM: KPS: 100 General Appearance: Alert and oriented. No acute distress. Radiation dermatitis: No IMAGING/LAB RESULTS: None Treatment chart checked: Yes Patient treatment site reviewed and verified:Yes Port films reviewed and current:Yes Medications started: None ASSESSMENT/PLAN: Clinically stable. No signs of toxicity. Continue radiation treatment as planned. Cris Simpson MD documented in this encounter [facility] 10-13-2021 Nurse Note Radiation Therapy - Patient Education Note PATIENT NAME: Elida Penaloza PATIENT October 13, 2021 [facility] FACILITY/LOCATION: [place] READINESS TO LEARN Cognitive Ability: Alert and oriented Motivation to learn: Eager Interested Family Support: Unable to assess - Family not present Instruction provide to: Patient Patient learns best by: Multiple Methods Factors effecting learning: None Physical limitations effecting learning: None LEARNING RESPONSE Diagnosis: Pt simulated today for radiation therapy to left breast. Education Topic/Teaching Points: Radiation therapy, Side effects, and OTV: Method of instruction: Teach Back skin care Individual instruction Written instruction - handouts Verbal instruction Patient /Family response: Patient verbalized understanding of radiation treatments, side effects, OTV, and transportation. Follow-up plan: Patient instructed to call with any further issues Contact information given. Supplemental material: Informational handouts on Department phone list, [facility], and [place] instructions, XRT sheet, Aquaphor handout and ABC packet. Referral (recommendation): None, Pt denied need for social work, van service, and bone puller. Was approved? unknown Signed by: Cristine Teresa RN documented in this encounter [facility] 10-13-2021 History of Present illness Narrative ELIDA PENALOZA [id number] 10/13/2021 [facility] Department of Radiation Oncology [facility] RADIATION ONCOLOGY SIMULATION NOTE DATE OF SIMULATION: 10/13/2021 MACHINE: [employer] Definition CT Simulator Diagnosis: Pathological stage IIA, ypT1b ypN1, grade 2 multifocal invasive mammary carcinoma of the left breast s/p neoadjuvant chemotherapy with 4 cycles of AC followed by Taxol, s/p left modified radical mastectomy, and axillary node dissection on 09/02/21. It's ER positive (strong, 95%), TN negative (0%) and Her2 0. AREA:Left Chestwall/IM/SC/Axilla PATIENT POSITION: Supine. CONTRAST: None PROTOCOL: None BLOCKING: Custom blocking to be determined at treatment planning. FIXATION DEVICE: In order to achieve accurate and reproducible treatments, the patient is to be immobilized with the orfit system and the ABC device. PROCEDURE: A time-out was conducted and recorded by the therapist. Patient was simulated on the CT scanner for external beam radiation therapy. Treatment site was marked by the simulation therapist. ASSESSMENT/PLAN: Patient tolerated simulation procedure well. Treatments will be initiated after treatment planning. The patient is scheduled for a verification simulation on the treatment machine to ensure proper set-up and field arrangement is correct prior to the first treatment of primary and boost granda if applicable. Electronically Signed Cris Simpson M.D./ana laura 21:30 PM documented in this encounter [facility] 10-13-2021 History of Present illness Narrative ELIDA PENALOZA [id number] 10/13/2021 [facility] Department of Radiation Oncology Treatment Planning Note For reasons stated in the consult note, Elida Penaloza is a candidate for radiation therapy. Based on review and interpretation of the relevant diagnostic studies together with the exam findings, Elida Penaloza was simulated on 10/13/2021 at which time the target volume and/or requisite granda were delineated, as indicated in the simulation note, to be treated according to the prescription. CT images were taken during deep inspiration breath hold using a breath hold device. The CT image set was reviewed to assess respiratory reproducibility. The breath hold device allowed for design of patient specific target delineation for the purposes of cardiac sparing. The treatment target and organs at risk were contoured on the simulation scan. After reviewing multiple treatment plans with dosimetry, the best plan was approved to deliver the prescribed course of radiation to the target area using 3D planning to allow for the best isodose distribution, treating to the 100,97,97% isodose line with 6,10,15 MV and 9 segmented granda. Custom MLC wedges asym jaws were the treatment device(s) used to shape/modify the beams. Limiting dose to normal tissue was confirmed upon review of the calculated dose volume histogram. A completed summary of this plan dated 10/15/21 incorporated herein by reference includes dose, beam arrangements, energy, blocking, isodose distribution, and/or ports and DVH. Electronically Signed Cris Simpson M.D. 21:30 PM documented in this encounter [facility] 10-07-2021 Miscellaneous Notes Spoke with Adeline , will give Dr. Rivera instructions. Bonnie Mandel LPN Can we call pathology department to add a Ki-67 index on her breast cancer specimen from September 02, 2021? Since this is not a molecular marker, I do not know how to enter her order on [email or web address]. Please call pathologist today. Abiola Rivera MD documented in this encounter [facility] 09-22-2021 History of Present illness Narrative HISTORY: This 66 year old female is s/p a Left-modified Mastectomy performed on 09/02/2021. She was last seen on 09/13/2021 for drain removal. She returns today for seroma check in the LEFT operative area.The Patient denies any fever, chills or redness in the incisional area. She states that otherwise she is doing well. EXAMINATION: The Left chest wall incisional line is healing well and without any evidence of infection. No erythema, no discharge, no warmth. There is minimal fullness in the left chest wall surgical site and the patient prefers no aspiration be attempted at this point in time. No erythema, no discharge, no warmth. BREAST IMAGING: Breast imaging was not performed today. IMPRESSION: Elida Penaloza is a 66 year old year old female who is s/p a LEFT modified radical mastectomy, LEFT axillary reverse lymphatic mapping breast performed by Dr. 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 ER+, TN-, HER2- PATHOLOGICAL STAGE LEFT BREAST: yp,T1b,N1 Outside slides reviewed 1/[address] + on LN excision. No post op seroma requiring drainage PLAN: She will schedule a Right sided screening mammogram in one month (patient would like to recover from surgery first). Her case is scheduled to be presented at Tumor Board tomorrow and any new recommendations will be shared with the patient. Encourage to be aware of over extending her arm in order to prevent stress on the incision site. She is instructed on the signs and symptoms of infection including redness, fever, draining, edema, pain. She will follow up with Dr. Simpson (Radiation Oncologist) for radiation treatment to the left chest wall and regional lymphatics to improve local/regional control and overall survival on 10/13/2021. Patient has followed up with Dr. Rivera (Medical oncologist) who is planning for patient to start Femara daily for 10 years and abemacicib twice daily for one year, following completion of Radiation therapy. Prescription for Breast prosthesis/bras is given as well as list of merchants. She will schedule a consult with Rissa Stacy (O.T.) for lymphedema prevention strategies and education on range of motion management Ms. Penaloza should return in one month for a follow up with mammogram She has our names and numbers to stay in touch if there are any questions, concerns or problems. Kelsie Mendoza PA-C documented in this encounter [facility] 09-22-2021 Nurse Note Seroma check Did patient bring outside records to appt today? : No Last mammogram on: 08/2020 bilateral Results: see report Is the patient active on MyChart Yes Electronically Signed By: Merari Vera LPN In Department: [facility] REVIEW OF PATIENT HISTORY: OB History T0 L0 SAB0 IAB0 Ectopic0 Multiple0 Live Births0 Comment: Menarche: 14; Age at 1st : n/a; Post menopausal FAMILY HISTORY Problem Relation Age of Onset Breast Cancer Mother Melanoma Father No Known Problems Sister Melanoma Brother Seizures Brother other (AV malformation brain) Brother PAST MEDICAL HISTORY Diagnosis Date Anemia 01/12/2021 Breast cancer (HCC) Cellulitis 03/24/2021 Nicotine use disorder, F17.2 03/25/2021 PAST SURGICAL HISTORY Procedure Laterality Date BREAST BIOPSY HX Left 09/24/2020 INSJ TUNNELED CTR VAD W/SUBQ PORT AGE 5 YR/> 01/18/2021 and removal of old port a cath LIGATE FALLOPIAN TUBE 1989 PAST SURGICAL HISTORY OF 1984 Bunions removed from both feet PORTOCATH PLACEMENT 11/04/2020 malfunctioned Social History Tobacco Use Smoking status: Current Every Day Smoker Packs/day: 1.00 Years: 45.00 Pack years: 45.00 Types: Cigarettes Smokeless tobacco: Never Used Tobacco comment: Pt has cut back to 1/4 pack daily. Vaping Use Vaping Use: Never used Substance Use Topics Alcohol use: Never Comment: rare 1 drink Drug use: Never documented in this encounter [facility] 09-16-2021 History of Present illness Narrative The below documentation is based on a tumor board discussion amongst the multidisciplinary team and should NOT be used for insurance verification or coverage purposes or interpreted as the final plan of care: Date of Presentation: September 16, 2021 Presenter: Thom Team Members: Calvin Rivera Primary reason for presentation: discussion of pt presentation / treatment options Anatomic stage: [id number] ypT1(m)N1M0 Pathway discussed: Yes Clinical trial discussion: Yes, none Genetics: discussed Supportive Care: discussed Discussion / recommendations: After review and discussion of patient presentation, the following thoughts / recommendations were made. 1) Surgery: s/p LEFT MRM 2) Medical Oncology: Residual disease after NAC, Femara, consider Abemaciclib, check ki67 3) Radiation Oncology: PMRT This abstract and interpretation of the conversation at tumor board has been completed by Lilly Tomas DO, a medical claims processor. The final recommendations / treatment plan will be made by the patient's primary health care team and patient, after full discussion as appropriate. documented in this encounter [facility] 09-15-2021 Miscellaneous Notes Nurse navigator called patient to check-in on post-op recovery. Patient reports she is doing very well. No pain, drains removed. Confirmed appointment next week for 09/22 with Kelsie Mendoza. Denied any social work needs at this time, received assistance from her sister. Provided social work contact for patient should situation change. Clarisa Sandoval RN documented in this encounter [facility] 09-13-2021 Nurse Note Pt here today for last drain to be removed. Drain has been less then 30 cc's for 2 days. Drain removed with out difficultly And pt tolerated well. Place dry dressing over drain site. Instructed pt to wear tight supportive bra and follow up in one week with Kelsie SO for seroma check. Merari Vera LPN documented in this encounter [facility] 09-13-2021 History of Present illness Narrative PATIENT NAME: Elida Penaloza. CLINIC NO: [id number]. ATTENDING PHYSICIAN: Abiola Rivera MD. DATE OF SERVICE: 09/13/2021 DIAGNOSIS: Clinical stage 2; T2, N1, M0; grade 2, ER positive, TN negative, HER-2 non-overexpressed; of left breast upper outer quadrant. HPI: 65-year-old with history of 40+ year of tobacco use quit smoking this May. She presented with an abnormal left breast mass since July. She has no history of breast trauma or mastitis. She denies any pain, bleeding or discharge from her nipple. Family history of breast cancer mother was diagnosed with breast cancer at age 61. No other family members with breast or ovarian cancer. Previous total hysterectomy from trauma. She had a mammogram on 09/04/2020 and subsequent diagnostic mammogram with ultrasound which showed a solid spiculated appearing lesion in the left upper outer quadrant measure 15 x 13 x 17 mm. In addition 4 x 4 x4 mm hypoechogenic lesion present deep to the nipple. Subsequent needle biopsy of the breast lesion at 2 o'clock position consistent with invasive moderately differentiated ductal carcinoma. Estrogen receptor strongly +95%, progesterone receptor -0%, HER-2/sara -0 by IHC. Subsequently had CT scan chest abdomen pelvis which showed diverticulosis, and a spiculated mass deep in the breast with prominent left axillary lymph node. There was no evidence of metastatic disease. She saw Dr. Tammie De La Torre initially last year for her breast cancer. They discussed possibility of mastectomy versus lumpectomy with sentinel lymph node biopsy followed by radiation treatment. She decided to have neoadjuvant chemotherapy for breast cancer. Neoadjuvant chemotherapy: Adriamycin and cyclophosphamide every 14 weeks & Neulasta x 4 Paclitaxel weekly x 12 (01/28/2021 -04/30) Breast MRI and biopsy of the left breast lesion at 2 o'clock after completion of chemotherapy reviewed residual cancer. In addition, a 0.4 cm enhancing focus was noted at 3:00 location was suspicious and second-look US was recommended. No axillary lymphadenopathy was noted and a clip was reported in the axilla (likely from excision of LN). FINAL DIAGNOSIS A. Breast, left 3:00 subareolar, X clip placement, ultrasound-guided core needle biopsy: - Invasive mammary carcinoma with lobular features, provisional [place] grade 2, 3 mm in greatest dimension. Estrogen Receptor (ER) Positive 91-100 % Stain intensity: moderate to strong Internal controls: absent External controls: appropriately stained Progesterone Receptor (TN) Positive 91-100 % Stain intensity: moderate to strong Internal controls: absent External controls: appropriately stained HER2 (ERBB2) IMMUNOHISTOCHEMISTRY ASSAY Interpretation: NEGATIVE for HER2 (ERBB2) Expression Score: 1+ US was performed and MRI biopsy was performed on 07/05/2021 reporting Invasive mammary carcinoma with lobular features, 3 mm, Grade 2, ER+TN+HER2 -. (Per review with radiology this is the area initially seen on imaging in 2020 that was not biopsied and does not appear to have responded to treatment. FINAL DIAGNOSIS A. Breast, left 3:00 subareolar, X clip placement, ultrasound-guided core needle biopsy: - Invasive mammary carcinoma with lobular features, provisional [place] grade 2, 3 mm in greatest dimension. Estrogen Receptor (ER) Positive 91-100 % Stain intensity: moderate to strong Internal controls: absent External controls: appropriately stained Progesterone Receptor (TN) Positive 91-100 % Stain intensity: moderate to strong Internal controls: absent External controls: appropriately stained HER2 (ERBB2) IMMUNOHISTOCHEMISTRY ASSAY Interpretation: NEGATIVE for HER2 (ERBB2) Expression Score: 1+ Interim history: She saw Dr. Lilly Tomas and subsequently had a modified radical left mastectomy on 09/02/2021. Postoperative course unremarkable, she still have a LAVERN drain with minimal drainage in her left mastectomy site. She has no significant pain or lymphedema. SURGICAL PATHOLOGY: FINAL DIAGNOSIS A. Breast, left, mastectomy: ---Multiple foci (at least 4) of invasive breast carcinoma without definitive treatment effect, all situated in the upper outer quadrant of the breast: ------Invasive mammary carcinoma with mixed ductal and lobular features, [place] grade 2, situated in the 2:00 aspect of the breast (Ribbon clip), measuring 9 mm in greatest dimension. ------Invasive lobular carcinoma, [place] grade 1, situated in the 1:00 aspect of the breast, measuring 6 mm in greatest dimension. ------Invasive mammary carcinoma with mixed ductal and lobular features, [place] grade 2, situated in the 3:00 aspect of the breast (X clip), measuring 5 mm in greatest dimension. ------Invasive ductal carcinoma, [place] grade 1, situated in the 1:00 aspect of the breast, measuring 2 mm in greatest dimension. ---Lymph-vascular invasion is not identified. ---The nipple and skin are negative for carcinoma. ---The background breast shows multiple (2) previous biopsy sites, multifocal atypical ductal hyperplasia (ADH), focal atypical lobular hyperplasia (ALH), and fibrocystic changes. ---Microcalcifications are present within ADH and benign breast. ---The surgical margins are negative for carcinoma by greater than 2 mm. ---Metastatic mammary carcinoma in multiple (2 of 2) intramammary lymph nodes; the largest metastatic focus measures 3.5 mm in greatest dimension. No diagnostic morphologic features of treatment effect. Extranodal extension is not identified. [2/] ---Please see comment and synoptic template below. B. Surgical/medical hardware, port, removal: ---Port grossly identified (gross examination only). C. Lymph nodes, left axillary, levels 1 and 2, dissection: ---Multiple (4) lymph nodes negative for carcinoma. No diagnostic morphologic features of treatment effect. [0/4] D. Breast, left, excess lateral skin, excision: ---Negative for carcinoma. E. Breast, left, excess medial skin, excision: ---Negative for carcinoma. Diagnosis Comment The foci of invasive carcinoma do not show definitive features of treatment effect. Synoptic Report INVASIVE CARCINOMA OF THE BREAST: Resection 8th Edition - Protocol posted: 08/19/2020 INVASIVE CARCINOMA OF THE BREAST, RESECTION - A, C SPECIMEN Procedure Total mastectomy Specimen Laterality Left TUMOR Tumor Site Upper outer quadrant Histologic Type Histologic Type Comment Multiple histologic types; largest focus is invasive mammary carcinoma Histologic Grade ([place] Histologic Score) Glandular (Acinar) / Tubular Differentiation Score 3 Nuclear Pleomorphism Score 2 Mitotic Rate Score 1 Overall Grade Grade 2 (scores of 6 or 7) Tumor Size Greatest dimension of largest invasive focus (Millimeters): 9 mm Tumor Focality Multiple foci of invasive carcinoma Number of Foci At least: 4 Ductal Carcinoma In Situ (DCIS) Not identified Lobular Carcinoma In Situ (LCIS) Not identified Lymphovascular Invasion Not identified Dermal Lymphovascular Invasion Not identified Microcalcifications Present in non-neoplastic tissue Treatment Effect in the Breast No definite response to presurgical therapy in the invasive carcinoma Treatment Effect in the Lymph Nodes No definite response to presurgical therapy in metastatic carcinoma MARGINS Margin Status for Invasive Carcinoma All margins negative for invasive carcinoma Distance from Invasive Carcinoma to Closest Margin Greater than: 2 mm REGIONAL LYMPH NODES Regional Lymph Node Status Tumor present in regional lymph node(s) Number of Lymph Nodes with Macrometastases 2 Number of Lymph Nodes with Micrometastases 0 Size of Largest Aubrie Metastatic Deposit 3.5 mm Extranodal Extension Not identified Total Number of Lymph Nodes Examined (sentinel and non-sentinel) 6 Regional Lymph Node Comment Metastatic disease was identified in intramammary lymph nodes PATHOLOGIC STAGE CLASSIFICATION (pTNM, AJCC 8th Edition) Reporting of pT, pN, and (when applicable) pM categories is based on information available to the pathologist at the time the report is issued. As per the AJCC (Chapter 1, 8th Ed.) it is the managing physician s responsibility to establish the final pathologic stage based upon all pertinent information, including but potentially not limited to this pathology report. TNM Descriptors m (multiple foci of invasive carcinoma) y (post-treatment) pT Category pT1b pN Category pN1a Breast Biomarker Testing Performed on Previous Biopsy Estrogen Receptor (ER) Status Positive (greater than 10% of cells demonstrate nuclear positivity) Percentage of Cells with Nuclear Positivity 95 % Breast Biomarker Testing Performed on Previous Biopsy Progesterone Receptor (PgR) Status Negative Breast Biomarker Testing Performed on Previous Biopsy HER2 (by immunohistochemistry) Negative (Score 0) Testing Performed on Case Number Performed by outside institution (not reviewed) on 2:00 carcinoma . All medications & allergies updated and reviewed by me. REVIEW OF SYSTEMS: CONSTITUTIONAL: No fevers, chills, nightsweats, unintended weight loss HEENT: Denies frequent or severe heaches, nasal congestion/sinus symptoms, problematic allergy problems. EYES: No diplopia or blurry vision. CARDIOVASCULAR: No chest pain, dyspnea, palpitations, orthopnea, PND, ankle edema. PULM: No dyspnea, unexplained cough. GI: No dysphagia/odynophagia, problematic reflux, constipation, diarrhea, changes in stool habits, hematochezia, melena. : No new urinary complaints, including dysuria, gross hematuria or pyuria. NEURO: No new balance problems, peripheral weakness/paresthesias or numbness of concern. MUSC-SKEL: No new joint pain, swelling, or erythema. PSY: No concerns regarding depression, anxiety or panic. INTEGUMENTARY: No new skin changes (rash, new or changing mole, new growth) PHYSICAL EXAMINATION: 65-year-old well-nourished well-developed female in no acute distress Performance status 100% BP 173/106 Pulse 47 Temp (Src) 97.8 (Temporal) Wt 105 lb (47.6kg) HEENT: Head is normocephalic, atraumatic. Sclerae white, conjunctivae pink. PEERL. EOMs are intact. Oropharynx is benign. LYMPHATICS: There is no palpable adenopathy in the neck, supraclavicular region, axillary or groin. BREASTS: Right breast without skin dimpling, nipple discharge or masses. Left mastectomy scar is healed. LAVERN drains intact with minimal serosanguineous fluid noted in bulbs. LUNGS: Lungs are clear to percussion and auscultation. HEART: Heart is normal without murmurs, gallops, or rubs. ABDOMEN: Soft and nontender without organomegaly. No masses can be palpated. EXTREMITIES: Are without edema. Left hand no skin breakdown, erythema or tenderness. Normal range of motion of her fingers NEUROLOGIC: Exam is physiologic; mild neuropathy in both hands and feet. ASSESSMENT/PLAN: 65-year-old lady with history of tobacco use, presenting with clinical stage 2b, ER positive, TN negative, HER-2 not overexpressed breast cancer. 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 Simpson, for adjuvant radiation therapy after she recovered from surgery in 4 weeks to start radiation treatment. -She will start Femara 2.5 mg once daily x 10 years and abemaciclib 150 mg twice daily for 1 year for high- risk ER positive/ HER2 negative breast cancer after she completed radiation therapy. -Repeat CBC, CMP, and vitamin D 25 level OV in 10 weeks. -Follow-up diagnostic mammogram of right breast next year. 2) hypertension Plan: -Continue to monitor -Follow-up with PCP for treatment 3) vitamin D deficiency Plan: -Resume ergocalciferol 50,000 Unit weekly -Obtain bone density study next month and repeat vitamin D 25 level. I spent 30 minutes in the visit, with more than 50% of the total [id number]-vdeq time of the visit in counseling / coordination of care. Portions of this documentation were copied and pasted from previous office visit notes in order to provide a cohesive continuity of the history. The note has been reviewed and edited and updated as necessary. Abiola Rivera MD Cc: MD Cris Preston MD Stephanie A Valente, DO documented in this encounter [facility] 09-13-2021 Nurse Note Radiation Therapy - Nursing Note (Consult) PATIENT NAME: Elida Penaloza PATIENT September 13, 2021 [facility] FACILITY/LOCATION: [place] Chief Complaint: conuslt Reason for visit: Consult. Referring physician: Internal provider Dr Rivera Subjective Data: no c/o, still has 1 LAVERN drain s/o mastectomy Additional Data Do you want to see a Fruit Or Nut Farmworker? No Are you interested in information about fertility? No Status: Post-menopausal Stress Scale: On a scale of 0 to 10, what number best describes how much distress you have experienced in the past week?(0 being no distress and 10 being extreme distress) 2 Social work notified: no SIGNED by: Cristine Teresa RN documented in this encounter [facility] 09-13-2021 History of Present illness Narrative Radiation Oncology - New Patient/Consult Note PATIENT NAME: Elida Penaloza PATIENT REQUESTING PROVIDER: Abiola Rivera DIAGNOSIS: Pathological stage IIA, ypT1b ypN1, grade 2 multifocal invasive mammary carcinoma of the left breast s/p neoadjuvant chemotherapy with 4 cycles of AC followed by Taxol, s/p left modified radical mastectomy, and axillary node dissection on 09/02/21. It's ER positive (strong, 95%), TN negative (0%) and Her2 0. HPI: 66 year old female who presents with above diagnosis, for an opinion regarding the role of radiation therapy in the management of the patient's disease. Final recommendations will be communicated back to the requesting physician by way of the shared medical record, or letter to requesting physician via [place] mail. 66 year old woman who felt a lump in the left breast in July,. Diagnostic mammogram and US left breast on 09/04/20 showed a solid spiculated appearing lesion in the left upper outer quadrant measure 15 x 13 x 17 mm. In addition 4 x 4 x4 mm hypoechogenic lesion present deep to the nipple was noted. Core needle biopsy of the breast lesion at 2 o'clock position on 09/24/20 showed invasive moderately differentiated ductal carcinoma. It's ER positive (strong, 95%), TN negative (0%) and Her2 0. Staging CT C/A/P showed prominent left axillary node. MRI scan on showed multifocal disease involving the left breast with grouping of enlarged axillary lymph nodes suspicious for malignant adenopathy from breast cancer. She had excision of the left axillary node on 11/20/[address] Tammie De La Torre. Pathology showed metastatic carcinoma. She underwent neoadjuvant chemotherapy with 4 cycles of AC followed by weekly Taxol finished on 04/30/21. Post-chemotherapy MRI breasts on 05/14/21 showed that the known cancer at 2:00 right breast decreased in size. There was 0.4 cm enhancing lesion at 3:00. No axillary adenopathy was noted. Core biopsy of the left breast 3:00 lesion on 07/05/21 showed grade 2 invasive lobular carcinoma with lobular features. It's ER positive (91-100%), TN positive (91-100%) and Her2 negative. She underwent left mastectomy and left axillary node dissection on 09/02/21. Pathology showed 4 foci of grade 2 invasive mammary carcinoma in the left upper outer quadrant with the largest measuring 9 mm. Surgical margins were negative with the closest margin greater than 2 mm. There was no LVI. Metastatic mammary carcinoma in multiple (2 of 2) intramammary lymph nodes; the largest metastatic focus measures 3.5 mm in greatest dimension. Extranodal extension is not identified. 4 left axillary nodes were negative for metastasis. ALLERGIES Allergen Reactions Covid-19 (Sars-Cov-* Hives PAST MEDICAL HISTORY Diagnosis Date Anemia 01/12/2021 Breast cancer (HCC) Cellulitis 03/24/2021 Nicotine use disorder, F17.2 03/25/2021 Prior radiation therapy, collagen vascular disease, or inflammatory bowel disease: No status: Post-menopausal. PAST SURGICAL HISTORY Procedure Laterality Date BREAST BIOPSY HX Left 09/24/2020 INSJ TUNNELED CTR VAD W/SUBQ PORT AGE 5 YR/> 01/18/2021 and removal of old port a cath LIGATE FALLOPIAN TUBE 1989 PAST SURGICAL HISTORY OF 1985 Bunions removed from both feet PORTOCATH PLACEMENT 11/04/2020 malfunctioned FAMILY HISTORY Problem Relation Age of Onset Breast Cancer Mother Melanoma Father No Known Problems Sister Melanoma Brother Seizures Brother other (AV malformation brain) Brother Social History Tobacco Use Smoking status: Current Every Day Smoker Packs/day: 1.00 Years: 45.00 Pack years: 45.00 Types: Cigarettes Smokeless tobacco: Never Used Tobacco comment: Pt has cut back to 1/4 pack daily. Vaping Use Vaping Use: Never used Substance Use Topics Alcohol use: Never Comment: rare 1 drink Drug use: Never COMPLETE REVIEW OF SYSTEMS: GENERAL: feeling well without fatigue, no recent change in weight HEENT: denies HOFFMAN, change in hearing or vision, no other ENT complaints NECK: denies swelling or pain in neck RESPIRATORY: no cough, no wheezing or shortness of breath CARDIOVASCULAR: no chest pain, no palpitations GI: normal appetite, tolerating PO well, BMs normal and no abdominal pain : urination is normal MUSCULOSKELETAL: denies any painful or swollen joints, no muscle aches SKIN: no rash HEMATOLOGY/LYMPHOLOGY: negative for prolonged bleeding, no swollen lymph nodes NEURO: no numbness or paresthesias and no weakness of the extremities PHYSICAL EXAM: VS: BP 178/96 Pulse 86 Temp 37 C (98.6 F) (Temporal) Resp 15 Wt 47.9 kg (105 lb 8 oz) LMP (LMP Unknown) SpO2 96% BMI 19.30 kg/m KPS: 90 General Appearance: Alert and oriented. No acute distress. HEENT: NCAT. Sclera anicteric. EOMI. Neck: Normal ROM. Chest: No respiratory distress. Musculoskeletal: No edema. Normal ROM in extremities. Neuro: Speech fluent. Gait normal. No focal deficits. Hematologic: No signs of active bleeding. RADIOLOGY/LABORATORY DATA: see HPI ASSESSMENT AND PLAN: 66 year old woman with pathological stage IIA, ypT1b ypN1, grade 2 multifocal invasive mammary carcinoma of the left breast s/p neoadjuvant chemotherapy with 4 cycles of AC followed by Taxol, s/p left modified radical mastectomy, and axillary node dissection on 09/02/21. It's ER positive (strong, 95%), TN negative (0%) and Her2 0. She had positive axillary node excised before chemotherapy. She has positive two nodes post-chemotherapy. I recommend radiation treatment to the left chest wall and regional lymphatics to improve local/regional control and overall survival. I explained the rationale, benefits, alternative management options and potential complications of radiation treatment to the patient and she understands and agrees to proceed. It was explained and understood that other personnel such as radiation therapists, senior applications engineer, and physicists will participate in planning and delivery of radiation treatment. Permanent tattoo villasenor will be placed to aid with positioning for daily treatment and the patient consented. Patient will have a simulation procedure after she heals from mastectomy. Thank you very much for allowing us to participate in her care. Signed by: Cris Simpson MD cc: Ronn Wang [id number] [place] [address] Lilly Rivera [address] [facility] [id number] documented in this encounter [facility] 09-08-2021 Miscellaneous Notes Scheduled. Mrs. Penaloza had her surgery last week. She will need adjuvant radiation therapy followed by AI and abemaciclib.- ER positive HER2 negative multifocal mixed ductal and lobular features of left breast cancer, status post left modified mastectomy. Schedule appointment with Dr. Simpson and ca next week Abiola Rivera MD documented in this encounter [facility] 09-08-2021 Miscellaneous Notes Patient stopped in and scheduled. Tried contacting pt to schedule consult with , went to , was not able to leave a message pt's mailbox was full. Will try contacting again later. Donna Baig documented in this encounter [facility] 09-08-2021 History of Present illness Narrative BREAST CANCER POST OPERATIVE FOLLOW-UP SERVICE DATE: 09/08/21 SURGERY DATE: 09/02/2021 POSTOPERATIVE VISIT #1 SUBJECTIVE: Elida Penaloza is a 66 year old year old female who is s/p a LEFT modified radical mastectomy, LEFT axillary reverse lymphatic mapping breast performed by Dr. Tomas (Breast Surgeon) on 09/02/2021 She reports > 30ml of daily drainage output from 1/2 drains for the past 2 days. She denies any redness, bruising, swelling or discharge from the incision. She denies any fever or chills. Pain of the surgical site is reported as minimal and intermittent. OBJECTIVE: PHYSICAL EXAM: No Complaints. BREAST EXAMINATION: The patient was examined in the upright position. LEFT breast surgically absent, no dominant chest wall masses, no skin changes. The horizontal incision is healing well. LAVERN drains intact with serosanguineous fluid noted in bulbs. One drain removed without complication.Patien tolerated well. LEFT axilla no palpable lymphadenopathy, no evidence of lymphedema and good range of motion. Regional Lymph Nodes: There is no concerning supraclavicular, infraclavicular or cervical lymphadenopathy. SURGICAL PATHOLOGY: FINAL DIAGNOSIS A. Breast, left, mastectomy: ---Multiple foci (at least 4) of invasive breast carcinoma without definitive treatment effect, all situated in the upper outer quadrant of the breast: ------Invasive mammary carcinoma with mixed ductal and lobular features, [place] grade 2, situated in the 2:00 aspect of the breast (Ribbon clip), measuring 9 mm in greatest dimension. ------Invasive lobular carcinoma, [place] grade 1, situated in the 1:00 aspect of the breast, measuring 6 mm in greatest dimension. ------Invasive mammary carcinoma with mixed ductal and lobular features, [place] grade 2, situated in the 3:00 aspect of the breast (X clip), measuring 5 mm in greatest dimension. ------Invasive ductal carcinoma, [place] grade 1, situated in the 1:00 aspect of the breast, measuring 2 mm in greatest dimension. ---Lymph-vascular invasion is not identified. ---The nipple and skin are negative for carcinoma. ---The background breast shows multiple (2) previous biopsy sites, multifocal atypical ductal hyperplasia (ADH), focal atypical lobular hyperplasia (ALH), and fibrocystic changes. ---Microcalcifications are present within ADH and benign breast. ---The surgical margins are negative for carcinoma by greater than 2 mm. ---Metastatic mammary carcinoma in multiple (2 of 2) intramammary lymph nodes; the largest metastatic focus measures 3.5 mm in greatest dimension. No diagnostic morphologic features of treatment effect. Extranodal extension is not identified. [2/2] ---Please see comment and synoptic template below. B. Surgical/medical hardware, port, removal: ---Port grossly identified (gross examination only). C. Lymph nodes, left axillary, levels 1 and 2, dissection: ---Multiple (4) lymph nodes negative for carcinoma. No diagnostic morphologic features of treatment effect. [0/4] D. Breast, left, excess lateral skin, excision: ---Negative for carcinoma. E. Breast, left, excess medial skin, excision: ---Negative for carcinoma. Diagnosis Comment The foci of invasive carcinoma do not show definitive features of treatment effect. Synoptic Report INVASIVE CARCINOMA OF THE BREAST: Resection 8th Edition - Protocol posted: 08/19/2020 INVASIVE CARCINOMA OF THE BREAST, RESECTION - A, C SPECIMEN Procedure Total mastectomy Specimen Laterality Left TUMOR Tumor Site Upper outer quadrant Histologic Type Histologic Type Comment Multiple histologic types; largest focus is invasive mammary carcinoma Histologic Grade ([place] Histologic Score) Glandular (Acinar) / Tubular Differentiation Score 3 Nuclear Pleomorphism Score 2 Mitotic Rate Score 1 Overall Grade Grade 2 (scores of 6 or 7) Tumor Size Greatest dimension of largest invasive focus (Millimeters): 9 mm Tumor Focality Multiple foci of invasive carcinoma Number of Foci At least: 4 Ductal Carcinoma In Situ (DCIS) Not identified Lobular Carcinoma In Situ (LCIS) Not identified Lymphovascular Invasion Not identified Dermal Lymphovascular Invasion Not identified Microcalcifications Present in non-neoplastic tissue Treatment Effect in the Breast No definite response to presurgical therapy in the invasive carcinoma Treatment Effect in the Lymph Nodes No definite response to presurgical therapy in metastatic carcinoma MARGINS Margin Status for Invasive Carcinoma All margins negative for invasive carcinoma Distance from Invasive Carcinoma to Closest Margin Greater than: 2 mm REGIONAL LYMPH NODES Regional Lymph Node Status Tumor present in regional lymph node(s) Number of Lymph Nodes with Macrometastases 2 Number of Lymph Nodes with Micrometastases 0 Size of Largest Aubrie Metastatic Deposit 3.5 mm Extranodal Extension Not identified Total Number of Lymph Nodes Examined (sentinel and non-sentinel) 6 Regional Lymph Node Comment Metastatic disease was identified in intramammary lymph nodes PATHOLOGIC STAGE CLASSIFICATION (pTNM, AJCC 8th Edition) Reporting of pT, pN, and (when applicable) pM categories is based on information available to the pathologist at the time the report is issued. As per the AJCC (Chapter 1, 8th Ed.) it is the managing physician s responsibility to establish the final pathologic stage based upon all pertinent information, including but potentially not limited to this pathology report. TNM Descriptors m (multiple foci of invasive carcinoma) y (post-treatment) pT Category pT1b pN Category pN1a Breast Biomarker Testing Performed on Previous Biopsy Estrogen Receptor (ER) Status Positive (greater than 10% of cells demonstrate nuclear positivity) Percentage of Cells with Nuclear Positivity 95 % Breast Biomarker Testing Performed on Previous Biopsy Progesterone Receptor (PgR) Status Negative Breast Biomarker Testing Performed on Previous Biopsy HER2 (by immunohistochemistry) Negative (Score 0) Testing Performed on Case Number Performed by outside institution (not reviewed) on 2:00 carcinoma . ASSESSMENT: Elida Penaloza is a 66 year old year old female who is s/p a LEFT modified radical mastectomy, LEFT axillary reverse lymphatic mapping breast performed by Dr. 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 ER+, TN-, HER2- PATHOLOGICAL STAGE LEFT BREAST: yp,T1b,N1 POST OPERATIVE STATUS: Uncomplicated post-operative course, She initially presented on 08/05/2021 with a LEFT breast 1.7 cm IDC @ 2:00 posterior depth (bx performed clip placed) ER+TN-HER2- On imaging at that time showed a 4 mm mass @3:00 anterior depth, but this was not biopsied. Imaging showed at least 2 enlarged lymph nodes, excision of af a lymph node at the time of port placement was performed and confirmed metastatic disease. The patient underwent neoadjuvant chemotherapy and developed a LEFT finger/hand MRSA infection. Last chemo was on 04/30/21. MRI 05/13/21 identified the 4mm mass and biopsy showed this is consistent with a multifocal cancer that did not respond to chemo (invasive mammary cancer favor lobular ER+TN+HER2-) Her 2:00 cancer shows a partial response. Given that she had a lymph node excision to prove metastatic disease rather than a core bx, the lymphatics have been cut and therefore sentinel lymph node mapping and biopsy after NAC cannot reliably be performed, so she requires a completion ALND. She has developed skin thickening but this does not appear inflammatory, rather a side effect from axillary LN removal and subsequent LEFT hand MRSA infection. cT1(m)N1M0 S/p NAC with partial response PLAN Pathology report reviewed by (Breast Surgeon) and with the patient. Pathologist trequesting receptors on all multifocal cancer noted as well as Ki67. In addition, outside slides of lymph nodes that were excised previously are requested for review. Case will be presented at Tumor Board for recommendations. All questions were answered and she had no further concerns. Instructions for wound management, the signs and symptoms of infection, and seroma development were reviewed with the patient. will follow up with Dr. Rivera (Medical Oncologist) as scheduled, on 09/13/2021. She will schedule a consult with Dr. Dawson (Radiation Oncologist) to discuss adjuvant systemic therapy. Will arrange for right sided screening mammogram in one month (patient would like to recover from surgery first). She will follow-up with us for drain removal, when LAVERN tube drainage is below 25-30 cc for 48 hrs. She has our names and numbers to stay in touch if she has any questions, concerns or problems in the interim. Kelsie Mendoza PA-C documented in this encounter [facility] 09-08-2021 Nurse Note Post op Did patient bring outside records to appt today? : No Last mammogram on: 09/24/20 bilateral Results: see report Is the patient active on [employer] Yes Electronically Signed By: Merari Vera LPN In Department: [facility] REVIEW OF PATIENT HISTORY: OB History T0 L0 SAB0 IAB0 Ectopic0 Multiple0 Live Births0 Comment: Menarche: 14; Age at 1st : n/a; Post menopausal FAMILY HISTORY Problem Relation Age of Onset Breast Cancer Mother Melanoma Father No Known Problems Sister Melanoma Brother Seizures Brother other (AV malformation brain) Brother PAST MEDICAL HISTORY Diagnosis Date Anemia 01/12/2021 Breast cancer (HCC) Cellulitis 03/24/2021 Nicotine use disorder, F17.2 03/25/2021 PAST SURGICAL HISTORY Procedure Laterality Date BREAST BIOPSY HX Left 09/24/2020 INSJ TUNNELED CTR VAD W/SUBQ PORT AGE 5 YR/> 01/18/2021 and removal of old port a cath LIGATE FALLOPIAN TUBE 1989 PAST SURGICAL HISTORY OF 1984 Bunions removed from both feet PORTOCATH PLACEMENT 11/04/2020 malfunctioned Social History Tobacco Use Smoking status: Current Every Day Smoker Packs/day: 1.00 Years: 45.00 Pack years: 45.00 Types: Cigarettes Smokeless tobacco: Never Used Tobacco comment: Pt has cut back to 1/4 pack daily. Vaping Use Vaping Use: Never used Substance Use Topics Alcohol use: Never Comment: rare 1 drink Drug use: Never documented in this encounter [facility] 09-03-2021 Miscellaneous Notes Patient returned call. BREAST HEALTH NURSE POST-OP PHONE CONTACT: Elida Penaloza was contact via telephone as follow-up from recent breast surgery. I spoke with self/patient to evaluate progress since surgery. Patient has limited supports, one friend that can stop by after work. Some family in town. TOPICS ADDRESSED: PAIN ASSESSMENT: Yes LOCATION: surgical site PAIN SCALE: 1 on a scale of 0-10 MEDICATIONS: patient has oxycodone, has not needed to take. Explained protocol for how and when to take pain medications for optimal relief. EMOTIONAL ASSESSMENT: appropriate. ADJUSTMENT TO DIAGNOSIS AND TREATMENT: responding appropriately. DRAIN CARE: Yes, color sero-sanguinous and Re-educated patient on proper drain care. Patient has 2 drains. Re-educated patient on drain care, tubing, signs of infection, recording drainage on output record. INCISION SITE: Viewed by patient - No. PAtient has jenae wrap. Will remove this evening and wear a front closure sports bra that her friend will get her at [facility]. NUTRITION: food intake: adequate. fluid intake: adequate. ACTIVITY AND EXERCISE: Began exercises 1-4. Patient was unaware of any activity restrictions or exercises. Educated patient in detail on instructions. Teach Back method of education performed. The self/patient verbalized understanding. FOLLOW UP: Confirmed patient has contact information for off hours/weekend needs. Encouraged patient to call with questions or needs. Patient confirmed she will follow-up with Destiny. Patient received some financial assistance from her sister. Clarisa Sandoval, RN documented in this encounter [facility] 09-03-2021 History of Present illness Narrative TRANSITIONAL CARE MANAGEMENT (TCM) COMMUNITY MONITORING PROGRAM Provider Action/FYI: Pt returning my 1st attempt call, she is doing better, she has 2 LAVERN tubes draining serous/sang, dressing is dry and intact, pain is controlled, her family is getting her a sports bra since the hospital forgot to give it to her, pt kindly declines seeing PCP at this time, no question/concerns SUMMARY: Pt discharged from [facility] on 09/02/21. Admitted for: S/P Left Mastectomy Modified Radical and Removal of Right Catheter Port Contact made with patient: Yes Hi my name is Mine Barclay RN and I am calling from the [facility] on behalf of your PCP, Ronn Wang MD I understand you were recently in the hospital so I am calling to check in with you to ensure you are feeling well now that you're home. May I ask you a few questions related to your hospital stay and well-being? Yes Contact with patient post discharge, spoke to patient. Patient identified by name and . Do you feel your health is BETTER, WORSE, or the SAME since leaving the hospital? Better ACTION TAKEN: Patient indicated symptoms are better or same, no action required. Continue outreach. MEDICATIONS: Many patients have questions or concerns about their medications once they are home. Do you have any questions about taking your medications or which medication you should be on? No Do you need any medication refills at this time, including any of the medications you might take only when needed? No ACTION TAKEN: No action required For RNs or Pharmacy completing outreach ONLY, was a medication review completed? Yes SOCIAL: We would like to make sure you have what you need so that your basics needs are met - including your personal safety, food, housing and medications. Would you like to speak with a social work prepared foods service team member to help give you support for any of these needs? No It can be normal to feel anxious or down during a time like this. Would you like to talk to a mental health professional about how you have been feeling? No ACTION TAKEN: No action taken DISCHARGE INTRUCTIONS: Your discharge instructions / After Visit Summary (AVS) are important in guiding you through the recovery process. Do you have any questions related to your discharge instructions? No Do you have all the necessary equipment and supplies at home? Yes ACTION TAKEN: No action required I would like to help you schedule a hospital follow-up virtual or telephone visit with your PCP. This is a great way for you to connect with your provider to ensure you have safely transitioned home. If you are agreeable, I will send your request to a recruiting scheduler who will contact and assist you with that appointment. This will give you an opportunity to ask any questions or address any concerns you may have with your PCP. Inform the patient that if they have any questions or concerns prior to that appointment, to call their PCP's office right away. ACTION TAKEN: No action required, patient declines appointment. Your doctor would like us to remind you of the recommendations regarding the coronavirus (Covid19) outbreak: Avoid public places as much as possible. Avoid close contact (within 6 feet) with others you don t live with, especially if they are sick. Stay home if you are sick. Wash your hands regularly for at least 20 seconds with soap and water. Wear a cloth mask in public places to help reduce community spread. Do not go to your Doctor s office unless instructed to do so. For any non-emergency symptoms, call your Doctor s office to get instructions on how to manage (we might recommend a telephone or virtual visit). For emergency symptoms, proceed to Emergency Department as usual but inform them of cough and fever symptoms MARIA INES if present (or call on the way if possible). TCM Home Visit Referral Source of Stratification: [facility] Admission Status: Discharged Readmission Risk Score: 9 ROCHELLE Score: 5 Program referral criteria met: Does not meet referral criteria Patient does not qualify for High Risk TCM Home Visit program due to: Does not meet referral criteria Patient does not quality for High Risk TCM Home Visit Program due to: Does not meet referral criteria Preferred contact number: [phone] Is patient staying somewhere other than the listed home address: No Dialysis Patient: No TRANSITIONAL CARE MANAGEMENT (TCM) COMMUNITY MONITORING PROGRAM Provider Action/FYI: 1st Outreach attempt, NA Mailbox is full Pt NEEDS f/u with PCP, TCM Eligible through 09/16 Pt HAS Post-op f/u 09/08 Pt HAS f/u with Heamatology/Oncology, 09/16 Pain Med: Oxycodone Also taking Duricef SUMMARY: Pt discharged from [facility] on 09/02/21. Admitted for: S/P Left Mastectomy Modified Radical and Removal of Right Catheter Port Contact made with patient: No - next outreach attempt will be on next day Outreach ended documented in this encounter [facility] 09-03-2021 Miscellaneous Notes Post op call placed to patient. Breast nurse navigator was unable to see patient in the hospital, as she was discharged the same day as surgery. Unable to leave message as mailbox is full. Will send staff message to patient. Clarisa Sandoval RN documented in this encounter [facility] 09-03-2021 Miscellaneous Notes Social Work Problem Referral Note INFORMATION/REFERRAL : Elida Penaloza 66 year old female was [facility] for the following reason(s): financial assistance - meals, parking, etc. PERSONS INTERVIEWED: patient INTERVENTION: Phone Contact and Information & Referral Service Co-ordination Affect/Mood: The patient is noted as appropriate IDENTIFIED PROBLEMS/NEEDS: Continue to assess/collaborate Financial Intervention/Referral to be provided:Arrangements made for continuity of care Information for community resources/agencies IMPRESSION/PLAN:SW spoke with patient to discuss local resources. SW reviewed food pantry resources and Adi. Patient states she is feeling really good today and was able to borrow some money from her sister to last her until she can return to work. Patient states she believes she will be able to return to work sooner than expected because she is feeling really good. SW reviewed upcoming appointments with patient and encouraged her to call surgeon's office if she has any concerns or questions related to surgery. Patient agreeable and denies other needs. F/U APPOINTMENT: PRN Assigned DANIEL listed in Care Team tab: Yes AL Bryan documented in this encounter [facility] 09-02-2021 Note HNO ID: [id number] Author: Neisha Vidal (Sporthold) Service: Pharmacy Author Type: ? Type: Plan of Care Filed: 09/02/2021 5:31 PM Note Text: PHARMACY BEDSIDE DELIVERY SERVICE Patient Name: Elida Penaloza The marked outpatient medications were filled at [facility] pharmacy and picked up at the pharmacy by her sister, Laura Medication List START taking these medications cefADROxil 500 mg capsule Commonly known as: DURICEF Take 1 capsule by mouth twice daily for 14 days. oxyCODONE IR 5 mg immediate release tablet Commonly known as: ROXICODONE Take 1 tablet by mouth every 6 hours as needed for pain. CONTINUE taking these medications * anastrozole 1 mg tablet Commonly known as: ARIMIDEX Take 1 tablet by mouth once daily. * anastrozole 1 mg tablet Commonly known as: ARIMIDEX Take 1 tablet by mouth once daily. ergocalciferol (vitamin D2) 50,000 unit capsule Commonly known as: DrisdoL Take 1 capsule by mouth one time a week. MELATONIN ORAL * This list has 2 medication(s) that are the same as other medications prescribed for you. Read the directions carefully, and ask your doctor or other care provider to review them with you. You might also be taking other medications not listed above. If you have questions about any of your other medications, talk to the person who prescribed them or your Primary Care Provider. Neisha Vidal (Sporthold) PAGER: [phone] September 02, 2021 5:30 PM [facility] 09-02-2021 Note HNO ID: [id number] Author: AL Mcginnis Service: ? Author Type: Pediatric Genetic Counselor Type: Progress Notes Filed: 09/02/2021 11:36 AM Note Text: Summary: Financial Assistance needed post surgery Social Work was alerted by Dr. Tomas of possible financial hardship patient will experience post surgury - due to inability to work several weeks post surgery. Patient will be provided my contact information to have her contact me for potential financail assist through our [email or web address]. Social Work will also inquire with AL Bryan at our [facility] if any other resources might be available as patient resides in [place], [place]. LUCINDA Solis, OSW-C [facility] 09-02-2021 Note HNO ID: [id number] Author: Sandi Rodriguez APRN.ELECTRICAL ASSISTANT Service: Anesthesiology Author Type: Nurse Ostomy Nurse Type: Anesthesia Procedure Notes Filed: 09/02/2021 11:05 AM Note Text: ANESTHESIOLOGY PROCEDURE NOTE Airway General Information Procedure Start Time/Medication Administration: 09/02/2021 10:57 AM Patient location during procedure: OR Patient identity confirmed: arm band, care prepared foods service team member and patient Staffing Anesthesiologist: Shayan Turcios MD ELECTRICAL ASSISTANT: Sandi Rodriguez APRN.ELECTRICAL ASSISTANT Performed by: ELECTRICAL ASSISTANT Indications and Patient Condition Preoxygenated: yes Patient position: sniffing Difficult Mask: No Indications for airway management: anesthesia anesthesia circuit Method: asleep Final Airway Details Final airway type: endotracheal airway Final Endotracheal Airway: ETT Cuffed: yes Successful intubation technique: direct laryngoscopy Endotracheal tube insertion site: oral Blade: Debby Blade size: #4 ETT size (mm): 7.0 Measured from: lips Measurement (cm): 21 Placement verified by: chest auscultation and capnometry Cormack-Lehane Classification: grade I - full view of glottis Number of attempts at approach: 1 Airway not difficult Comments Atraumatic; pre-anesthetic condition of lips and teeth intact. SIGNATURE: Sandi Rodriguez APRN.ELECTRICAL ASSISTANT PATIENT NAME: Elida Penaloza DATE: September 02, 2021 TIME: 11:04 AM CSN: [id number] [facility] 09-02-2021 History of Present illness Narrative Summary: Financial Assistance needed post surgery Social Work was alerted by Dr. Tomas of possible financial hardship patient will experience post surgury - due to inability to work several weeks post surgery. Patient will be provided my contact information to have her contact me for potential financail assist through our [employer]. Social Work will also inquire with AL Bryan at our [facility] if any other resources might be available as patient resides in [place], [place]. AL Solis-Annia, OSW-C documented in this encounter [facility] 09-02-2021 Miscellaneous Notes Kely from [facility] [phone] has been trying to reach out to the patient to let her know that her surgery today is NOT covered. [facility] is out of network and they will not be approving it because there are other facilities in there area that do the same procedure. documented in this encounter [facility] 09-02-2021 Miscellaneous Notes Patient scheduled, aware of date and time. Donna Baig Mrs. Penaloza is having surgery, mastectomy tomorrow. Please schedule follow-up appointment in 2 weeks. Abiola Rivera MD ----- Message from Kelsie Mendoza PA-C sent at 09/01/2021 3:07 PM EDT ----- Dr. Rivera, This patient needs a post op appointment with you. Her surgery (MRM) is scheduled for 09/02/2021. Can someone from your team call the patient (or mychart the appointment) ? Thank YOU! documented in this encounter [facility] 09-01-2021 Miscellaneous Notes Called patient and unable to leave any message, her mailbox is full. Patient new arrival time is at 9:30 am ,surgery tomorrow 09/02. documented in this encounter [facility] 09-01-2021 Miscellaneous Notes Called patient to inquire if she has any questions related to her surgery tomorrow. Patient states she is at work and unable to talk. 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 This RN will continue to follow the patient through surgery and recovery. Social work has also been consulted to assist with finances. Clarisa Sandoval, RN documented in this encounter [facility] 08-31-2021 Miscellaneous Notes Pt returned my call, States she unable to take any calls while at work she does not get off till after 4pm. I verbalized understanding. I will send her pre and post op instructions via email and make sure a nurse navigator sees her before she goes home to touch base with her regarding drain care. All questions were answered Merari Vera LPN documented in this encounter [facility] 08-17-2021 Miscellaneous Notes Spoke to patient , informed her surgery date and appointments related to her procedure with Dr. Tomas on 09/02 Fvw. Phone no. Provided , to call [facility] for her covid test. 1st attempt - mailbox is full, unable to leave any messages. documented in this encounter [facility] 08-12-2021 Miscellaneous Notes Social Work Problem Referral Note INFORMATION/REFERRAL : Elida Penaloza 66 year old female was referred by PCP DANIEL to [facility] Work for the following reason(s): financial assistance - meals, parking, etc. PERSONS INTERVIEWED: patient INTERVENTION: Phone Contact and Information & Referral Service Co-ordination Affect/Mood: The patient is noted as appropriate IDENTIFIED PROBLEMS/NEEDS: Continue to assess/collaborate Financial Information Intervention/Referral to be provided:Arrangements made for continuity of care Information for community resources/agencies IMPRESSION/PLAN: DANIEL spoke with patient regarding insurance concerns. Patient states her insurance is stating they will not cover her surgery at a [facility] location and she would have to go to [place]. Since patient is no longer getting reconstruction she is wondering if she could go to a different [facility] location, but DANIEL informed patient she would need to discuss that with her insurance provider. DANIEL provided information for local agencies to assist with rent and utilities ([id number] and [employer]). F/U APPOINTMENT: PRN Assigned DANIEL listed in Care Team tab: Yes AL Bryan documented in this encounter [facility] 08-11-2021 Miscellaneous Notes SOCIAL WORK FOLLOW UP NOTE: [facility] Date of service: August 11, 2021 Elida Penaloza is being seen for a follow up social work visit. Today's visit includes: patient not present TOPICS ADDRESSED: Finances; DANIEL received referral from PCP DANIEL. DANIEL called patient, but voicemail full and unable to leave message. PLAN: Continue follow up as needed F/U APPOINTMENT: PRN Assigned DANIEL listed in Care Team tab: Yes AL Bryan documented in this encounter [facility] 08-05-2021 Nurse Note Patient referred by: Did patient bring outside records to appt today? : No Last mammogram on: 11/02/20 bilateral Results: see report Patient current bra size: 34DD Is the patient active on MyChart Yes Electronically Signed By: Merari Vera LPN In Department: [facility] REVIEW OF PATIENT HISTORY: OB History No obstetric history on file. FAMILY HISTORY Problem Relation Age of Onset Breast Cancer Mother Melanoma Father No Known Problems Sister Melanoma Brother Seizures Brother other (AV malformation brain) Brother PAST MEDICAL HISTORY Diagnosis Date Anemia 01/12/2021 Breast cancer (HCC) Cellulitis 03/24/2021 Nicotine use disorder, F17.2 03/25/2021 PAST SURGICAL HISTORY Procedure Laterality Date BREAST BIOPSY HX Left 09/24/2020 INSJ TUNNELED CTR VAD W/SUBQ PORT AGE 5 YR/> 01/18/2021 and removal of old port a cath LIGATE FALLOPIAN TUBE 1989 PAST SURGICAL HISTORY OF 1985 Bunions removed from both feet PORTOCATH PLACEMENT 11/04/2020 malfunctioned Social History Tobacco Use Smoking status: Current Every Day Smoker Packs/day: 1.00 Years: 45.00 Pack years: 45.00 Types: Cigarettes Smokeless tobacco: Never Used Tobacco comment: Pt has cut back to 1/4 pack daily. Vaping Use Vaping Use: Never used Substance Use Topics Alcohol use: Never Comment: rare 1 drink Drug use: Never documented in this encounter [facility] 08-05-2021 History of Present illness Narrative NEW BREAST CANCER - INITIAL SURGICAL VISIT SERVICE DATE: 08/02/2021 REFERRING PROVIDER: DR. Gregory SUBJECTIVE: REASON FOR TODAY'S VISIT: Breast Cancer Evaluation HISTORY of PRESENT ILLNESS: Elida Penaloza is a 66 year old White female who presents to the [facility] at the request of Dr. Gregory for an opinion regarding a new diagnosis of LEFT breast cancer Patient states a LEFT breast mass was noted on a self breast exam in 07/2020. She underwent diagnostic imaging in 08/2020 which revealed a solid spiculated mass, located at 2:00 measuring 1.5 x 1.3 x 1.7 cm with a an additional lesion deep to the nipple measuring 4 m x 4 mm x 4 mm. Needle biopsy ws performed at [facility] in 09/2020 of the 2:00 mass only with pathology reporting Invasive moderately differentiated ductal carcinoma, ER+TN-HER2-. CT scan of the chest was performed in 09/2020 and reported a prominent left axillary node. Breast MRI was performed in 10/2020 reporting a mass at 9:00, measuring 1.7 x 1.1 x 1.3 cm and a 4 mm sub areolar enhancement as well as grouped lymph nodes with abnormal signaling. Patient had a medi port placed and Left axillary lymph node excisional biopsy by Dr. Nava De La Torre in 10/2020. Pathology reports was positive for metastatic carcinoma. No other signs of metastatic disease Underwent Neoadjuvant chemotherapy, Adriamycin and cyclophosphamide every 14 weeks & Neulasta x 4 Paclitaxel weekly x 12, from 11/2020-04/30/[address] Rivera (Med Onc) [facility]. In Mar 2021 developed a LEFT nail infection which progressed to a middle finger open infection cellulitis for which she was treated at [facility]. She states she chemo was delayed only 2 weeks. Her LEFT had and forearm were swollen but the infection cleared and she healed without needing a skin graft. Her last chemo was on 04/30/21. She underwent a Breast MRI at the [facility] for evaluation of response to treatment on 05/14/2021. The known cancer, at 2:00 location, had decreased in size to 0.4 cm, suggesting imaging response to treatment. Diffuse skin thickening and edema were noted in the the dependent portion of the breast, could be related to malignancy vs inflammmation/infection. Punch biopsy was recommended. In addition, a 0.4 cm enhancing focus was noted at 3:00 location was suspicious and second-look US was recommended. No axillary lymphadenopathy was noted and a clip was reported in the axilla (likely from excision of LN). US was performed and MRI biopsy was performed on 07/05/2021 reporting Invasive mammary carcinoma with lobular features, 3 mm, Grade 2, ER+TN+HER2 -. (Per review with radiology this is the area initially seen on imaging in 2020 that was not biopsied and does not appear to have responded to treatment. She states that she didn't notice that her LEFT breast skin was swollen (she does appreciate this change now), it is not red or painful, but states it was not that way at her initial presentation. Patient denies any other breast pain, skin changes, breast masses and nipple discharge. Patient has not had previous breast concerns, procedures or surgeries. She is interested in breast conservation surgery and is her to discuss her options. HISTORY OF BREAST PROCEDURE(S): As above PAST MEDICAL HISTORY: PAST MEDICAL HISTORY Diagnosis Date Anemia 01/12/2021 Breast cancer (HCC) Cellulitis 03/24/2021 Nicotine use disorder, F17.2 03/25/2021 PAST SURGICAL HISTORY: PAST SURGICAL HISTORY Procedure Laterality Date BREAST BIOPSY HX Left 09/24/2020 INSJ TUNNELED CTR VAD W/SUBQ PORT AGE 5 YR/> 01/18/2021 and removal of old port a cath LIGATE FALLOPIAN TUBE 1989 PAST SURGICAL HISTORY OF 1985 Bunions removed from both feet PORTOCATH PLACEMENT 11/04/2020 malfunctioned OBSTETRIC RELATED HISTORY: Menarche: 14 Age at 1st : n/a Post menopausal age 42 FAMILY HISTORY: FAMILY HISTORY Problem Relation Age of Onset Breast Cancer Mother Melanoma Father No Known Problems Sister Melanoma Brother Seizures Brother other (AV malformation brain) Brother The patient is not of Ashkenazic Ancestry Breast cancer: Mother (age 61?) Melanoma: Father (age 67) and Brother (age 34) SOCIAL HISTORY: 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 Social History Tobacco Use Smoking status: Current Every Day Smoker Packs/day: 1.00 Years: 45.00 Pack years: 45.00 Types: Cigarettes Smokeless tobacco: Never Used Tobacco comment: Pt has cut back to 1/4 pack daily. 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 [START ON 08/20/2021] anastrozole (ARIMIDEX) 1 mg tablet Take 1 tablet by mouth once daily. MELATONIN ORAL Take 1 tablet by mouth at bedtime as needed. ALLERGIES Allergen Reactions Covid-19 (Sars-Cov-* Hives REVIEW OF SYSTEMS: GENERAL:Reports 15 lb weight loss during hospital stay for MRSA of the left hand. No weight loss, malaise or fevers HEENT: Negative for frequent or significant headaches, No changes in hearing or vision, no nose bleeds or other nasal problems RESPIRATORY:Currentl smoker with 43+pack yr hx. Negative for cough, hemoptysis, wheezing, COPD, dyspnea or shortness of breath CARDIOVASCULAR: Negative for chest pain, leg swelling, hypertension, CHF or palpitations GASTROINTESTINAL: No nausea, vomiting, or diarrhea GENITOURINARY: No history of dysuria, frequency or incontinence GYNECOLOGICAL: Negative for abnormal vaginal bleeding, abnormal vaginal discharge MUSCULOSKELETAL: Negative for new joint pain or swelling, back pain or muscle pain INTEGUMENTARY:Denies Scleroderma or Lupus. Denies chronic skin conditions. PSYCHOLOGICAL: Denies history of psychiatric illness. Patient feels she is coping well with recent Breast Cancer diagnosis. Negative for sleep disturbance, mood disorder and recent psychosocial stressors. All other reviewed and negative other than HPI. Kelsie Mendoza PA-C OBJECTIVE: PHYSICAL EXAM: Ht 157.5 cm (5' 2) Wt 47.2 kg (104 lb) BMI 19.02 kg/m GENERAL:well-nourished, healthy, alert and oriented x 3, calm SKIN:warm, dry, skin color, texture, turgor normal HEAD/EYES:normocephalic, atraumatic and anicteric NECK: supple, symmetrical, no thyromegaly RESPIRATORY: Respirations regular & non-labored ABDOMEN: soft, nondistended. No hepatomegaly., No masses MUSCULOSKELETAL: No observed limitations in range of motion of upper extremities. Patient ambulates independently BREASTS: The Patient was examined in the upright and supine positions. Breasts are asymmetric. The patient was examined in the upright and supine position. RIGHT breast soft, no dominant masses, nipple everted, no discharge, no skin changes RIGHT axilla no palpable axillary lymphadenopathy LEFT breast soft, no dominant masses, nipple everted, no discharge, there is skin thickening, breast edema present compared to the right LEFT axilla no palpable axillary lymphadenopathy, healed axillary scar, no lymphedema of the UE, left hand healed well Regional Lymph Nodes: There is no concerning supraclavicular, infraclavicular or cervical lymphadenopathy. RIGHT neck lipoma patient states has been present for many years IMAGING TO DATE: BREAST MRI OF BOTH BREASTS: 05/14/2021 HISTORY: Recently diagnosed with left breast Her2 -ve IDC, on neoadjuvent chemotherapy. The exam is performed for evaluation of response to treatment. RESULT: No prior exams were available for comparison. Interpretation of this MRI was correlated with available mammograms and ultrasounds. Informed consent was obtained from the patient. MRI images were obtained at 1 mm intervals with a dedicated breast MRI. Pre and post contrast images were obtained at 1 minute intervals for 6 minutes. The patient was studied using the Sentinelle dedicated breast coil in the Siemens 1.5 Aliyah scanner. Initial axial STIR imaging was carried out followed by axial T1-weighted GRE imaging both before and after IV administration of 10 ml of Dotarem. Subsequently, subtraction imaging and 3-D reconstruction were completed on an independent workstation. An additional 4 minute high resolution sequence was performed after the first two 1 minute post-contrast sequences. 3D image post-processing was performed on an independent workstation with attending physician supervision including creation of quantitative dynamic contrast uptake subtraction images and multiplanar reconstruction (MPR). FINDINGS: Bilateral background breast enhancement is mild. Right breast: Post surgical changes of excisional biopsy in the posterior depth of the breast at 12:00. No suspicious mass or abnormal enhancement to suggest malignancy. Left breast: A 0.4 x 0.2 x 0.4cm heterogeneously enhacing focus of delayed washout kinetics in the posterior depth of the breast at 2:00, likely represent residual IDC (series 7, image 83 ). According to the available previous MRI report, the mass measured 1.5 x 1.3 x 1.7cm. Mild diffuse skin thickening and edema with associated heterogeneous enhancement predominantly in the lower inner and outer apects of the breast (series 7, image 48 ). A 0.4 cm heterogeneously enhancing focus in the anterior depth of the breast at 3:00 ( series 7, image 71, Sagittal 206). The post contrast dynamic images demonstrates rapid initial rise and delayed washout type kinetics. This may represent the correlate for the ultrasound finding on an outside study. Lymph nodes: No axillary or internal mammary lymphadenopathy. No evidence of signal void of biopsy clip in the left axilla to correspond to the biopsy proven lymph node. Extramammary: Unremarkable. The postcontrast images demonstrate adequate bolus within the heart. IMPRESSION: SUSPICIOUS FINDING - BIOPSY SHOULD BE CONSIDERED Left breast: BIRADS 4 1. Residual 0.4 cm heterogeneously enhacing focus in the posterior depth of the breast at 2:00, in the expected site of biopsy proven IDC, suggests imaging response to treatment. Surgical consult is recommended. The patient is under the care of Dr. Gregory. 2. Mild diffuse skin thickening and edema with associated heterogeneous enhancement, predominantly in the dependent aspect of the breast, could be related to malignancy vs inflammmation/infection. Clinical correlation is recommended. The need for skin punch biopsy should be determined clinically. 3. A 0.4 cm heterogeneously enhancing focus in the anterior depth of the breast at 3:00 is suspicious and may represent the correlate for the ultrasound finding on an outside study. Second look US is recommended. If no sonographic correlate, MRI guided biopsy is recommended. 4. No axillary lymphadenopathy. No evidence of signal void of biopsy clip in the left axilla to correspond to the biopsy proven lymph node. Right breast: BIRADS 2 No MRI evidence of malignancy. The exam was reviewed by a staff physician. Constantino Junior M.D. UNILATERAL LEFT DIGITAL DIAGNOSTIC MAMMOGRAM WITH CAD: 06/09/2021 HISTORY: Multiple Diagnoses Multiple Diagnoses. RESULT: TECHNIQUE: The study was acquired using full field digital technology and interpreted from soft copy. Current study was also evaluated with a Computer Aided Detection (CAD). No prior exams were available for comparison. The tissue of left breast is predominantly fatty. There is a biopsy clip in the left breast in the upper outer quadrant. No biopsy clip is seen in the axilla as questioned. No significant masses, calcifications, or other findings are seen in the breast. IMPRESSION: NEGATIVE There is no mammographic evidence of malignancy. LIMITED ULTRASOUND OF LEFT BREAST: 06/09/2021 RESULT: No prior exams were available for comparison. Color flow and real-time ultrasound of the left breast were performed. Wilson scale images of the real-time examination were reviewed. There is a 1 cm benign normal lymph node in the left axilla. IMPRESSION: BENIGN FINDING There is no sonographic evidence of malignancy. LIMITED SECONDLOOK ULTRASOUND OF LEFT BREAST: 07/05/2021 HISTORY: Breast Disorder. RESULT: Comparison is made to exams dated: 05/14/2021 breast MRI - [facility] and 06/09/2021 mammogram - [facility]. Color flow and real-time ultrasound of the left breast retroareolar were performed on the areas of interest. Wilson scale images of the real-time examination were reviewed. There is 0.4 cm x 0.4 cm x 0.5 cm irregular mass with an indistinct margin in the left breast at 3 o'clock in the retroareolar region. This irregular mass is hypoechoic. This correlates with breast MRI findings. Color flow imaging demonstrates that there is vascularity present. IMPRESSION: SUSPICIOUS FINDING - BIOPSY SHOULD BE CONSIDERED The 0.4 cm x 0.4 cm x 0.5 cm irregular mass in the left breast is suspicious of malignancy. This finding corresponds to the MRI finding in the left breast. Therefore, ultrasound-guided core biopsy with post-biopsy T1 weighted MRI is recommended in lieu of MRI-guided biopsy. Anel Tian M.D. PATHOLOGY RESULTS: 07/05/2021 FINAL DIAGNOSIS A. Breast, left 3:00 subareolar, X clip placement, ultrasound-guided core needle biopsy: - Invasive mammary carcinoma with lobular features, provisional Gabriele grade 2, 3 mm in greatest dimension. GL 07/06/2021 Diagnosis Comment Sections show infiltrating carcinoma with dispersed and single file architecture in fibroconnective tissue. Immunohistochemical stains for lobular differentiation (E-cadherin and beta-catenin) reveal positive staining with focal attenuation. The morphology is that of an invasive lobular carcinoma. A subset of lobular carcinoma fails to show loss of e-cadherin and beta-catenin. On balance, the findings are those of an invasive mammary carcinoma with lobular features. Prognostic predictive markers have been ordered and will be reported separately. Dr. Razo has reviewed the case and concurs with the diagnosis. Breast Biomarkers RESULTS: Estrogen Receptor (ER) Positive 91-100 % Progesterone Receptor (TN) Positive 91-100 % HER2 (ERBB2) IMMUNOHISTOCHEMISTRY ASSAY Interpretation: NEGATIVE for HER2 (ERBB2) Expression GENETIC TESTING: Not indicated ASSESSMENT: Catina Penaloza is a 66 year old female who presented 07/2020 with a LEFT breast 1.7 cm IDC @ 2:00 posterior depth (bx performed clip placed) ER+TN-HER2- On imaging at that time showed a 4 mm mass @3:00 anterior depth, but this was not biopsied. Imaging showed at least 2 enlarged lymph nodes, excision of af a lymph node at the time of port placement was performed and confirmed metastatic disease. The patient underwent neoadjuvant chemotherapy and developed a LEFT finger/hand MRSA infection. Last chemo was on 04/30/21. MRI 05/13/21 identified the 4mm mass and biopsy showed this is consistent with a multifocal cancer that did not respond to chemo (invasive mammary cancer favor lobular ER+TN+HER2-) Her 2:00 cancer shows a partial response. Given that she had a lymph node excision to prove metastatic disease rather than a core bx, the lymphatics have been cut and therefore sentinel lymph node mapping and biopsy after NAC cannot reliably be performed, so she requires a completion ALND. She has developed skin thickening but this does not appear inflammatory, rather a side effect from axillary LN removal and subsequent LEFT hand MRSA infection. cT1(m)N1M0 S/p NAC with partial response PLAN: DIAGNOSIS: (C50.912, C77.3) Breast cancer metastasized to axillary lymph node, left (HCC) (primary encounter diagnosis) (F17.200) Smoking I have examined Ms. Penaloza and reviewed the physical findings, imaging and pathology reports with her. A discussion was held with the patient regarding the local-regional, as well as systemic treatment of her Breast Cancer. We discussed role of breast conservation surgery or mastectomy, indications and risks of sentinel lymph node biopsy, possibility of axillary lymph node dissection, breast reconstruction and role of systemic and radiation therapy. We reviewed that due to the fact that she has a multifocal cancer, given her breast size, this would be difficult, could consider oncoplastics - but patient declines. Not a great candidate for immediate reconstruction given that she is a smoker and will require post-mastectomy radiation for her positive lymph node. Risk of reconstruction and surgical complications with reconstruction are 30-50%. She is scheduled to see Dr. Ballard to discuss this today. She could do 2 lumpectomies, or a mastectomy without reconstruction. Needs axillary lymph node dissection. Discussed that usually surgery is planned 4-6 weeks from her last chemo, and she is seeing me for initial consult outside of this recommended window, so encouraged to move forward with surgery and understands PMRT is recommended. States she doesn't have time off of work to recover from surgery as she needs to pay her bills for her house etc. Consult placed to social work for patient financial services as well as breast psychology. The risks of surgery were discussed with her including bleeding, hematoma, infection, skin necrosis, sensory paresthesias and upper extremity lymphedema, and possible need for additional surgery. She acknowledges these risks and agrees to proceed. Consent was signed for: LEFT modified radical mastectomy A tentative surgical date will determined and patient notified. All questions were answered and the patient had no further concerns at this time Ms. Penaloza was given our contact information if she has any further questions or concerns. Lilly Tomas DO, [facility] Breast Surgeon [facility] Cc: Dr. Bri Rivera documented in this encounter [facility] 08-04-2021 Miscellaneous Notes Images from the original note were not included. 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 Please send Catina's information to Dr. Miner and see if she can see her promptly. 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 I'm sure she is good..... Thanks Rich Message text Stevo Gregory MD You 16 hours ago (6:03 PM) Breast surgical oncologist/surgeon or medical oncology? Message text Per Catina, she will keep the appointment with Dr. Tomas for today. Trista Lima RN Spoke with Catina. She advised that she had spoken with Dr. Gregory on Monday. Dr. Gregory advised that he would call [facility] and speak with them. Catina stated that she was frustrated, because she spoke with [facility] previously and [facility] advised that [facility] is in network and nothing should be denied. Catina voiced frustration, because she has breast cancer and she has not had any treatment since April, due to the run-around from the insurance. Catina advised that she is going to keep the consultations that are scheduled for of this week. Trista Lima RN Michelle from [facility] called back. At [facility], Dr. Amara Miner is a breast oncologist ph: [phone] fx: [phone]. [facility] Dr. Bonnie Blevins is at [facility] ph: [phone]. Both of these providers have openings within one week of today. Per Michelle, Catina can receive care from [facility], but it will be paid at an out of network rate and Catina will have to pay more in the end. Attempted to call Catina ([phone]), but she did not answer and her mail box is full. Trista Lima RN Images from the original note were not included. Stevo Gregory MD You 1 hour ago (11:04 AM) Complex case requiring specialized care. Who is in there network who is a breast surgeon that can review the case urgently to decide if they will do it or agree to refer to our group. Called Michelle at [facility] ([phone]). Let her know what Dr. Gregory had said about Catina's case (see above). Michelle advised that she can call the [facility] in [place] and see about getting her an appointment MARIA INES or they will pay for providers at [facility], which [facility] will pay for as a tertiary center. Michelle will call us back. Trista Lima RN Michelle from [facility] called. She wanted to let Dr. Gregory know that the providers that Elida are scheduled to see, Dr. Tomas and Dr. Ballard, are out of network and benefits will not be paid at an in-network rate. Please advise if there is a reason that you are sending her to these providers or if [facility] can give in-network provider names that Elida can see. Trista Lima RN [facility] called to inform the office that they are not out of network. That this would be a higher cost. She wanted to discuss this with the provider. [phone] Michelle They would like a call back today or tomorrow morning. documented in this encounter [facility] 07-13-2021 History of Present illness Narrative PATIENT NAME: Elida Penaloza. CLINIC NO: [id number]. ATTENDING PHYSICIAN: Abiola Rivera MD. DATE OF SERVICE: 07/13/2021 DIAGNOSIS: Clinical stage 2; T2, N1, M0; grade 2, ER positive, TN negative, HER-2 non-overexpressed; of left breast upper outer quadrant. HPI: 65-year-old with history of 40+ year of tobacco use quit smoking this May. She presented with an abnormal left breast mass since July. She has no history of breast trauma or mastitis. She denies any pain, bleeding or discharge from her nipple. Family history of breast cancer mother was diagnosed with breast cancer at age 61. No other family members with breast or ovarian cancer. Previous total hysterectomy from trauma. She had a mammogram on 09/04/2020 and subsequent diagnostic mammogram with ultrasound which showed a solid spiculated appearing lesion in the left upper outer quadrant measure 15 x 13 x 17 mm. In addition 4 x 4 x4 mm hypoechogenic lesion present deep to the nipple. Subsequent needle biopsy of the breast lesion at 2 o'clock position consistent with invasive moderately differentiated ductal carcinoma. Estrogen receptor strongly +95%, progesterone receptor -0%, HER-2/sara -0 by IHC. Subsequently had CT scan chest abdomen pelvis which showed diverticulosis, and a spiculated mass deep in the breast with prominent left axillary lymph node. There was no evidence of metastatic disease. She saw Dr. Tammie De La Torre last week to discuss surgical option for her breast cancer. They discussed possibility of mastectomy versus lumpectomy with sentinel lymph node biopsy followed by radiation treatment. She is here today to discuss indications for adjuvant chemotherapy and endocrine therapy for breast cancer. She still has not decided on the type of surgery she would prefer to have at this time. Neoadjuvant chemotherapy: Adriamycin and cyclophosphamide every 14 weeks & Neulasta x 4 Paclitaxel weekly x 12 (01/28/2021 -04/30) Interim history: She is doing well and have completed her neoadjuvant chemotherapy. Her hand is completely healed from infection. She has no cough, shortness of breath or peripheral neuropathy. Her MRI scan showed respond to chemotherapy treatment however there is a thickness in the lower inner quadrant of the left breast. She has a follow-up with Dr. Gregory regarding surgery this afternoon. She would like to have a breast preserving operation if possible. Biopsy of the left breast lesion at 2 o'clock FINAL DIAGNOSIS A. Breast, left 3:00 subareolar, X clip placement, ultrasound-guided core needle biopsy: - Invasive mammary carcinoma with lobular features, provisional Gabriele grade 2, 3 mm in greatest dimension. Estrogen Receptor (ER) Positive 91-100 % Stain intensity: moderate to strong Internal controls: absent External controls: appropriately stained Progesterone Receptor (TN) Positive 91-100 % Stain intensity: moderate to strong Internal controls: absent External controls: appropriately stained HER2 (ERBB2) IMMUNOHISTOCHEMISTRY ASSAY Interpretation: NEGATIVE for HER2 (ERBB2) Expression Score: 1+ All medications & allergies updated and reviewed by me. REVIEW OF SYSTEMS: CONSTITUTIONAL: No fevers, chills, nightsweats, unintended weight loss HEENT: Denies frequent or severe heaches, nasal congestion/sinus symptoms, problematic allergy problems. EYES: No diplopia or blurry vision. CARDIOVASCULAR: No chest pain, dyspnea, palpitations, orthopnea, PND, ankle edema. PULM: No dyspnea, unexplained cough. GI: No dysphagia/odynophagia, problematic reflux, constipation, diarrhea, changes in stool habits, hematochezia, melena. : No new urinary complaints, including dysuria, gross hematuria or pyuria. NEURO: No new balance problems, peripheral weakness/paresthesias or numbness of concern. MUSC-SKEL: No new joint pain, swelling, or erythema. PSY: No concerns regarding depression, anxiety or panic. INTEGUMENTARY: No new skin changes (rash, new or changing mole, new growth) PHYSICAL EXAMINATION: 65-year-old well-nourished well-developed female in no acute distress Performance status 100% BP 169/99 Pulse 85 Temp 98.2 Wt 109 lb 8 oz (49.7kg) SpO2 98% HEENT: Head is normocephalic, atraumatic. Sclerae white, conjunctivae pink. PEERL. EOMs are intact. Oropharynx is benign. LYMPHATICS: There is no palpable adenopathy in the neck, supraclavicular region, axillary or groin. BREASTS: Right breast without skin dimpling, nipple discharge or masses. Left breast: Small mass 3 o'clock position left breast upper outer quadrant resolved; no palpable left axilla lymphadenopathy. No nipple discharge, or skin changes, thickness or lymphedema. LUNGS: Lungs are clear to percussion and auscultation. HEART: Heart is normal without murmurs, gallops, or rubs. ABDOMEN: Soft and nontender without organomegaly. No masses can be palpated. EXTREMITIES: Are without edema. Left hand no skin breakdown, erythema or tenderness. Normal range of motion of her fingers NEUROLOGIC: Exam is physiologic; mild neuropathy in both hands and feet. LABS: Component Latest Ref Rng & Units 07/13/2021 WBC 3.70 - 11.00 k/uL 8.05 RBC 3.90 - 5.20 m/uL 4.34 Hemoglobin 11.5 - 15.5 g/dL 14.7 Hematocrit 36.0 - 46.0 % 41.6 MCV 80.0 - 100.0 fL 95.9 MCH 26.0 - 34.0 pg 33.9 MCHC 30.5 - 36.0 g/dL 35.3 RDW-CV 11.5 - 15.0 % 12.1 Platelet Count 150 - 400 k/uL 169 MPV 9.0 - 12.7 fL 9.7 Neut% % 69.6 Abs Neut (ANC) 1.45 - 7.50 k/uL 5.60 Lymph% % 20.4 Abs Lymph 1.00 - 4.00 k/uL 1.64 [place]% % 7.8 Abs [place] <0.87 k/uL 0.63 Eosin% % 1.4 Abs Eosin <0.46 k/uL 0.11 Baso% % 0.6 Abs Baso <0.11 k/uL 0.05 Immature Gran % % 0.2 IMMATURE GRANS (ABS) <0.10 k/uL <0.03 NRBC /100 WBC 0.0 Absolute nRBC <0.01 k/uL <0.01 DTYPE Auto Component Latest Ref Rng & Units 07/13/2021 Protein, Total 6.3 - 8.0 g/dL 6.9 Albumin 3.9 - 4.9 g/dL 4.1 Calcium 8.5 - 10.2 mg/dL 9.2 Bilirubin, Total 0.2 - 1.3 mg/dL 0.3 Alkaline Phosphatase 34 - 123 U/L 86 AST 13 - 35 U/L 18 ALT 7 - 38 U/L 17 Glucose 74 - 99 mg/dL 106 (H) BUN 7 - 21 mg/dL 18 Creatinine 0.58 - 0.96 mg/dL 0.61 Sodium 136 - 144 mmol/L 137 Potassium 3.7 - 5.1 mmol/L 3.9 Chloride 97 - 105 mmol/L 103 CO2 22 - 30 mmol/L 22 Anion Gap 9 - 18 mmol/L 12 eGFR >=60 mL/min/1.73m 100 ASSESSMENT/PLAN: 65-year-old lady with history of tobacco use, presenting with clinical stage 2b, ER positive, TN negative, HER-2 not overexpressed breast cancer. 1) breast cancer -The lesion in the left breast at 2 o'clock is a separate primary invasive lobular carcinoma -No evidence of axillary adenopathy on imaging Plan: -MRI scan showed a good response to neoadjuvant chemotherapy, -Proceed with lumpectomy and axillary lymph node dissection vs mastectomy -Refer to Dr. Simpson, for adjuvant radiation therapy after surgery if she chooses breast conservation. -Repeat CBC, CMP, and vitamin D 25 level OV in 8 weeks to discuss adjuvant endocrine therapy with anastrozole for her breast cancer. 2) anemia secondary to chemotherapy -Resolved Plan: -Continue to monitor 3) vitamin D deficiency Plan: -Resume ergocalciferol 50,000 Unit weekly -Obtain bone density study later this year. I spent 30 minutes in the visit, with more than 50% of the total [id number] time of the visit in counseling / coordination of care. Portions of this documentation were copied and pasted from previous office visit notes in order to provide a cohesive continuity of the history. The note has been reviewed and edited and updated as necessary. Abiola Rivera MD Cc: MD Stevo Preston MD documented in this encounter [facility] 06-09-2021 History of Present illness Narrative Radiology Service Progress Note PATIENT NAME: Elida Penaloza DATE OF SERVICE: June 09, 2021 TIME: 1:47 PM PATIENT IDENTITY VERIFICATION COMPLETED USING TWO (2) IDENTIFIERS: Name and Date of confirmed by patient verbally. FALL SCREENING: Has the patient had 2 falls in the last year or 1 fall with injury or currently using an Ambulatory Assistive Device (Walker, Cane, Wheelchair, Crutches, etc.)? No PATIENT GENDER DATA: Female. status: : No status: NO. PATIENT RELEVANT IMPLANT DATA REVIEWED: Not Applicable RADIOLOGY DEPARTMENT: Mammography PERIPHERAL IV DATA: Not applicable SIGNED BY: RT Kayy(R) June 09, 2021 1:47 PM documented in this encounter [facility] 05-24-[address] Gregory-could you please review your order for the breast ultrasound? The current order states no axillary images. Thanks! R Images from the original note were not included. MD Trista Lopez RN Rhonda-since she now is wanting to have a mastectomy and not an additional biopsy, I need to get her CT scan images from [facility] to review the location of the initial axillary lymph node. I would also like her to get a follow-up breast ultrasound to include the left axilla. There is an ultrasound ordered. She can get it here in [place]. I can then have her return for follow-up visit. Victor Hugo-David 1) Requested images from Catina's CT scan (10/10) and MRI (11/10) from [facility] placed on a disc and mailed to our office. Conformation sheet received. 2) Called Catina and advised that we are requesting the images from [facility]. Also, that Dr. Gregory wants her to have an ultrasound completed, the order has been placed and we have to get the approval from [facility], before we can schedule it. Verified with PSS, May, that the referral for her insurance are in. 3) Advised patient that after she has the repeat ultrasound, she will need to follow up with Dr. Gregory to review the testing and formulate a plan. Catina asked that her ultrasound and return appointment is scheduled in the [place] office, as it is closer (she was previously seen at the [place] office.). Trista Lima RN Images from the original note were not included. MD Trista Lopez RN Yesterday (8:09 AM) I need her imaging from [place]-mammogram images and CT scan of the chest to review prior to surgery. I would also like her to get the breast ultrasound done here in [place]. And then I would like her to return to the office so I can talk to her if this is what she really wishes. Victor Hugo-David Please notify Dr. Gregory regarding her decision. Proceed with mastectomy and axillary lymph node dissection for her breast cancer and to skip her biopsy. Abiola Rivera MD Patient called and would like you to know that she has decided she wants to have the Masectomy instead of doing the biopsy and radiation. She is worried about insurance and time frames, but she wanted you all to know if you can have a project controls scheduler work on getting her set? Thanks, Micah documented in this encounter [facility] 05-18-2021 History of Present illness Narrative PATIENT NAME: Elida Penaloza. CLINIC NO: [id number]. ATTENDING PHYSICIAN: Abiola Rivera MD. DATE OF SERVICE: 05/18/2021 DIAGNOSIS: Clinical stage 2B; T2, N1, M0; grade 2, ER positive, TN negative, HER-2 non-overexpressed; of left breast upper outer quadrant. HPI: 65-year-old with history of 40+ year of tobacco use quit smoking this May. She presented with an abnormal left breast mass since July. She has no history of breast trauma or mastitis. She denies any pain, bleeding or discharge from her nipple. Family history of breast cancer mother was diagnosed with breast cancer at age 61. No other family members with breast or ovarian cancer. Previous total hysterectomy from trauma. She had a mammogram on 09/04/2020 and subsequent diagnostic mammogram with ultrasound which showed a solid spiculated appearing lesion in the left upper outer quadrant measure 15 x 13 x 17 mm. In addition 4 x 4 x4 mm hypoechogenic lesion present deep to the nipple. Subsequent needle biopsy of the breast lesion at 2 o'clock position consistent with invasive moderately differentiated ductal carcinoma. Estrogen receptor strongly +95%, progesterone receptor -0%, HER-2/sara -0 by IHC. Subsequently had CT scan chest abdomen pelvis which showed diverticulosis, and a spiculated mass deep in the breast with prominent left axillary lymph node. There was no evidence of metastatic disease. She saw Dr. Tammie De La Torre last week to discuss surgical option for her breast cancer. They discussed possibility of mastectomy versus lumpectomy with sentinel lymph node biopsy followed by radiation treatment. She is here today to discuss indications for adjuvant chemotherapy and endocrine therapy for breast cancer. She still has not decided on the type of surgery she would prefer to have at this time. Neoadjuvant chemotherapy: Adriamycin and cyclophosphamide every 14 weeks & Neulasta x 4 Paclitaxel weekly x 12 (01/28/2021 -04/30) Interim history: She is doing well and have completed her neoadjuvant chemotherapy last week. Her hand is completely healed from infection. She stopped iron because of upset stomach and constipation. Her anemia has improved. She has no cough, shortness of breath or peripheral neuropathy. Her MRI scan showed respond to chemotherapy treatment however there is a thickness in the lower inner quadrant of the left breast. No palpable mass on exam, but she is scheduled for an ultrasound-guided needle biopsy of her breast. She has a follow-up with Dr. Gregory regarding surgery. She would like to have a breast preserving operation if possible. All medications & allergies updated and reviewed by me. REVIEW OF SYSTEMS: CONSTITUTIONAL: No fevers, chills, nightsweats, unintended weight loss HEENT: Denies frequent or severe heaches, nasal congestion/sinus symptoms, problematic allergy problems. EYES: No diplopia or blurry vision. CARDIOVASCULAR: No chest pain, dyspnea, palpitations, orthopnea, PND, ankle edema. PULM: No dyspnea, unexplained cough. GI: No dysphagia/odynophagia, problematic reflux, constipation, diarrhea, changes in stool habits, hematochezia, melena. : No new urinary complaints, including dysuria, gross hematuria or pyuria. NEURO: No new balance problems, peripheral weakness/paresthesias or numbness of concern. MUSC-SKEL: No new joint pain, swelling, or erythema. PSY: No concerns regarding depression, anxiety or panic. INTEGUMENTARY: No new skin changes (rash, new or changing mole, new growth) PHYSICAL EXAMINATION: 65-year-old well-nourished well-developed female in no acute distress Performance status 100% BP 169/99 Pulse 85 Temp 98.2 Wt 109 lb 8 oz (49.7kg) SpO2 98% HEENT: Head is normocephalic, atraumatic. Sclerae white, conjunctivae pink. PEERL. EOMs are intact. Oropharynx is benign. LYMPHATICS: There is no palpable adenopathy in the neck, supraclavicular region, axillary or groin. BREASTS: Right breast without skin dimpling, nipple discharge or masses. Left breast: Small mass 2 o'clock position left breast upper outer quadrant resolved; no palpable left axilla lymphadenopathy. No nipple discharge, or skin changes, thickness or lymphedema. LUNGS: Lungs are clear to percussion and auscultation. HEART: Heart is normal without murmurs, gallops, or rubs. ABDOMEN: Soft and nontender without organomegaly. No masses can be palpated. EXTREMITIES: Are without edema. Left hand no skin breakdown, erythema or tenderness. Normal range of motion of her fingers NEUROLOGIC: Exam is physiologic; mild neuropathy in both hands and feet. LABS: Component Latest Ref Rng & Units 05/18/2021 WBC 3.70 - 11.00 k/uL 7.81 RBC 3.90 - 5.20 m/uL 3.45 (L) Hemoglobin 11.5 - 15.5 g/dL 12.2 Hematocrit 36.0 - 46.0 % 34.6 (L) MCV 80.0 - 100.0 fL 100.3 (H) MCH 26.0 - 34.0 pg 35.4 (H) MCHC 30.5 - 36.0 g/dL 35.3 RDW-CV 11.5 - 15.0 % 13.2 Platelet Count 150 - 400 k/uL 192 MPV 9.0 - 12.7 fL 9.2 Neut% % 72.3 Abs Neut (ANC) 1.45 - 7.50 k/uL 5.65 Lymph% % 16.3 Abs Lymph 1.00 - 4.00 k/uL 1.27 [place]% % 9.2 Abs [place] <0.87 k/uL 0.72 Eosin% % 1.2 Abs Eosin <0.46 k/uL 0.09 Baso% % 0.5 Abs Baso <0.11 k/uL 0.04 Immature Gran % % 0.5 IMMATURE GRANS (ABS) <0.10 k/uL 0.04 NRBC /100 WBC 0.0 Absolute nRBC <0.01 k/uL <0.01 DTYPE Auto Component Latest Ref Rng & Units 05/18/2021 Protein, Total 6.3 - 8.0 g/dL 6.2 (L) Albumin 3.9 - 4.9 g/dL 3.9 Calcium 8.5 - 10.2 mg/dL 9.1 Bilirubin, Total 0.2 - 1.3 mg/dL 0.3 Alkaline Phosphatase 34 - 123 U/L 83 AST 13 - 35 U/L 17 ALT 7 - 38 U/L 14 Glucose 74 - 99 mg/dL 86 BUN 7 - 21 mg/dL 18 Creatinine 0.58 - 0.96 mg/dL 0.54 (L) Sodium 136 - 144 mmol/L 137 Potassium 3.7 - 5.1 mmol/L 3.4 (L) Chloride 97 - 105 mmol/L 103 CO2 22 - 30 mmol/L 26 Anion Gap 9 - 18 mmol/L 8 (L) eGFR >=60 mL/min/1.73m 103 MRI breast: No prior exams were available for comparison. Interpretation of this MRI was correlated with available mammograms and ultrasounds. Informed consent was obtained from the patient. MRI images were obtained at 1 mm intervals with a dedicated breast MRI. Pre and post contrast images were obtained at 1 minute intervals for 6 minutes. The patient was studied using the Sentinelle dedicated breast coil in the Siemens 1.5 Aliyah scanner. Initial axial STIR imaging was carried out followed by axial T1-weighted GRE imaging both before and after IV administration of 10 ml of Dotarem. Subsequently, subtraction imaging and 3-D reconstruction were completed on an independent workstation. An additional 4 minute high resolution sequence was performed after the first two 1 minute post-contrast sequences. 3D image post-processing was performed on an independent workstation with attending physician supervision including creation of quantitative dynamic contrast uptake subtraction images and multiplanar reconstruction (MPR). FINDINGS: Bilateral background breast enhancement is mild. Right breast: Post surgical changes of excisional biopsy in the posterior depth of the breast at 12:00. No suspicious mass or abnormal enhancement to suggest malignancy. Left breast: A 0.4 x 0.2 x 0.4cm heterogeneously enhacing focus of delayed washout kinetics in the posterior depth of the breast at 2:00, likely represent residual IDC (series 7, image 83 ). According to the available previous MRI report, the mass measured 1.5 x 1.3 x 1.7cm. Mild diffuse skin thickening and edema with associated heterogeneous enhancement predominantly in the lower inner and outer apects of the breast (series 7, image 48 ). A 0.4 cm heterogeneously enhancing focus in the anterior depth of the breast at 3:00 ( series 7, image 71, Sagittal 206). The post contrast dynamic images demonstrates rapid initial rise and delayed washout type kinetics. This may represent the correlate for the ultrasound finding on an outside study. Lymph nodes: No axillary or internal mammary lymphadenopathy. No evidence of signal void of biopsy clip in the left axilla to correspond to the biopsy proven lymph node. Extramammary: Unremarkable. The postcontrast images demonstrate adequate bolus within the heart. IMPRESSION: SUSPICIOUS FINDING - BIOPSY SHOULD BE CONSIDERED Left breast: BIRADS 4 1. Residual 0.4 cm heterogeneously enhacing focus in the posterior depth of the breast at 2:00, in the expected site of biopsy proven IDC, suggests imaging response to treatment. Surgical consult is recommended. The patient is under the care of Dr. Gregory. 2. Mild diffuse skin thickening and edema with associated heterogeneous enhancement, predominantly in the dependent aspect of the breast, could be related to malignancy vs inflammmation/infection. Clinical correlation is recommended. The need for skin punch biopsy should be determined clinically. 3. A 0.4 cm heterogeneously enhancing focus in the anterior depth of the breast at 3:00 is suspicious and may represent the correlate for the ultrasound finding on an outside study. Second look US is recommended. If no sonographic correlate, MRI guided biopsy is recommended. 4. No axillary lymphadenopathy. No evidence of signal void of biopsy clip in the left axilla to correspond to the biopsy proven lymph node. Right breast: BIRADS 2 No MRI evidence of malignancy. The exam was reviewed by a staff physician. Constantino valdovinos,by/jim:05/14/2021 12:37:04 School Librarian(s): RT Joel(R)(M), [facility] MRI BI-RADS: 4 Suspicious finding - Biopsy should be considered Multiple national specialty organizations have released breast cancer screening guidelines for women at average risk for developing breast cancer - guidelines that are based on both evidence and opinion, yet differ on when to start and how often to screen for breast cancer. With representation from Breast Imaging, Internal Medicine, Women's Health, Family Medicine, and Medical/Surgical Oncology, the [facility] has carefully reviewed the data and reached the following consensus: 1) All women should engage in shared decision-making with their providers to decide when to start and how often to screen; 2) All women should have the opportunity to start screening mammography at age 40; 3) For women ages 45-55, we recommend annual screening mammograms; 4) For women ages 55 and over, we support both the transition from an annual to a biennial interval if this aligns more with patient's values and preferences, or continuation with annual screening; 5) All women should discuss with their providers when to stop screening mammograms. AMENDMENT: 05/14/2021 Constantino Brito M.D. Evaluation is markedly limited in the absence of prior imaging for comparison. Impression point #2 should also mention that differential for left breast skin thickening may be related to dependent edema. Further evaluation with skin punch may be obtained as clinically indicated. Amended BI-RADS: 4 Suspicious finding - Biopsy should be considered ASSESSMENT/PLAN: 65-year-old lady with history of tobacco use, presenting with clinical stage 2b, ER positive, TN negative, HER-2 not overexpressed breast cancer. 1) breast cancer -Partial clincial response noted on exam & on imaging. -No evidence of axillary adenopathy. Plan: -MRI scan shows a good response to neoadjuvant chemotherapy, however, there is unusual thickening on the lower inner quadrant of her breast. -Ultrasound-guided biopsy of this area schedule and follow-up with Dr. Varner regarding surgery for her breast cancer. -Repeat CBC, CMP, and OV in 8 weeks to discuss adjuvant radiation therapy and endocrine therapy for her breast cancer 2) anemia secondary to chemotherapy -Improved Plan: -Continue to monitor Portions of this documentation were copied and pasted from previous office visit notes in order to provide a cohesive continuity of the history. The note has been reviewed and edited and updated as necessary. Abiola Rivera MD Cc: MD Stevo Preston MD documented in this encounter [facility] 05-14-2021 Note HNO ID: [id number] Author: RT Shaheed(R) Service: Radiology Author Type: Technologist Type: Progress Notes Filed: 05/14/2021 8:48 AM Note Text: Radiology Service Progress Note DATE OF SERVICE: May 14, 2021 TIME: 8:48 AM PATIENT IDENTITY VERIFICATION COMPLETED USING TWO (2) STANDARD IDENTIFIERS: Name and Date of confirmed by patient verbally. FALL SCREENING: Has the patient had 2 falls in the last year or 1 fall with injury or currently using an Ambulatory Assistive Device (Walker, Cane, Wheelchair, Crutches, etc.)? No PATIENT GENDER DATA: Female. status: : No status: NO. PATIENT RELEVANT IMPLANT DATA REVIEWED: Yes ALLERGIES: Reviewed and unchanged CONTRAST ALLERGY: NO. EXAM: MRI - CONTRAST TYPE: GROUP II PERIPHERAL IV DATA: Ambulatory: A power injectable Midline was accessed in the Right side. Blood Return, Flushed easily with normal saline, Good Blood Return Post Injection, Flushed with 20 cc saline followed by Heparin 500 units/5 cc, Needle Removed and No Complications RADIOLOGY DEPARTMENT: MR; Exam(s) Completed: Chest: Breast SIGNATURE: Rylee Mcnair RT(R) PATIENT NAME: Elida Penaloza DATE: May 14, 2021 TIME: 8:48 AM [facility] 05-14-2021 History of Present illness Narrative Radiology Service Progress Note DATE OF SERVICE: May 14, 2021 TIME: 8:48 AM PATIENT IDENTITY VERIFICATION COMPLETED USING TWO (2) STANDARD IDENTIFIERS: Name and Date of confirmed by patient verbally. FALL SCREENING: Has the patient had 2 falls in the last year or 1 fall with injury or currently using an Ambulatory Assistive Device (Walker, Cane, Wheelchair, Crutches, etc.)? No PATIENT GENDER DATA: Female. status: : No status: NO. PATIENT RELEVANT IMPLANT DATA REVIEWED: Yes ALLERGIES: Reviewed and unchanged CONTRAST ALLERGY: NO. EXAM: MRI - CONTRAST TYPE: GROUP II PERIPHERAL IV DATA: Ambulatory: A power injectable Midline was accessed in the Right side. Blood Return, Flushed easily with normal saline, Good Blood Return Post Injection, Flushed with 20 cc saline followed by Heparin 500 units/5 cc, Needle Removed and No Complications RADIOLOGY DEPARTMENT: MR; Exam(s) Completed: Chest: Breast SIGNATURE: Rylee Mcnair RT(R) PATIENT NAME: Elida Penaloza DATE: May 14, 2021 TIME: 8:48 AM documented in this encounter [facility] 03-24-2021 Note [facility] Medical Records Department [address] [place] [address] Discharge Summary 03/24/21 1354 MR#: [id number] Acct: [id number] Name: ELIDA PENALOZA Rep #: [id number] : 1955 65 From: Kathy Rubin NP COUNCIL [employer]BER[employer]C PCP: Care Physician,No Primary Status:ADM IN Location: [place] [address] Documented by User: Kathy Rubin NP, [employer]NCIL [employer]BER-C 03/24/21 15:12 Providers Date of Admission: 03/22/21 Date of Discharge: 03/24/21 Primary Care Physician: No Primary Care Phys Consultations 03/22/21 16:40 Consult: Infectious Disease Routine Consulting Provider: Steven Lazo Reason for Consult: Left hand wound EMERGENT Consult: No MD Notified: Yes Date Notified: 03/23/21 Time Notified: 03:46 Method of Notification: Answering Service Consult: Onc/Wound/complaint specialist Routine Comment: Consult: Plastic Surgery Routine Consulting Provider: Rafa Brown Reason for Consult: Left hand wound EMERGENT Consult: No MD Notified: Yes Date Notified: 03/22/21 Time Notified: 15:39 Method of Notification: Verbal Comments:: Notified by ED Reason For Visit: CELLULITIS / SEPSIS Diagnosis Discharge Diagnosis (1) Paronychia of left ring finger: Status: Acute Code(s): L03.012 - Cellulitis of left finger (2) Acquired immunocompromised state: Status: Acute Code(s): D84.9 - Immunodeficiency, unspecified Medications at Discharge Home Medications ergocalciferol (vitamin D2) 1,250 mcg PO TH 03/22/21 Hospital Course Summary of Care Provided Hospital Course: Hospital Course: Patient is a 65-year-old female admitted 03/22/2021 due to left hand redness and swelling. 1. Left hand cellulitis, left ring finger paronychia-sepsis ruled out. Left wrist arthrocentesis performed in ER with no fluid aspirated. Hand x-ray with soft tissue swelling. CT shows soft tissue swelling without soft tissue abscess or osteomyelitis. Blood cultures pending. Wound culture growing MRSA. IV Vanco, IV Zosyn. ID and plastic consult. As needed pain regimen. Due to progressively worsening appearance, patient transferred to [facility] for further management and intervention. Accepted by oncology/hand surgery. 2. Breast cancer, undergoing chemotherapy- Follows with Dr. Rivera. 3. Tobacco dependence-encouraged cessation. Physical Exam Const alert, oriented x3 and no apparent distress Orientation / Consciousness: awake, oriented to person, oriented to place and oriented to time Nutritional Appearance: cachectic HEENT normocephalic and moist oral mucous membranes Eyes PERRL, EOMs intact bilaterally and conjunctivae normal Neck no lymphadenopathy Resp normal respiratory effort and clear to auscultation bilaterally Cardio regular rhythm and no murmurs Rate: tachycardic Peripheral Pulses: pulses 2+ throughout GI normal to inspection, nondistended, normoactive bowel sounds, non-tender and non-distended Extremity normal to inspection Skin Skin Narrative: Left finger paronychia with left hand erythema, warmth and swelling as well as ring finger bulla formation. Progressed from prior exam. Lesions: no lesions Rashes: no rashes Trauma: no lacerations or abrasions Neuro CN's II-XII intact bilaterally, no focal motor deficits, no sensory deficits noted and deep tendon reflexes 2+ bilaterally Psych mental status grossly normal and affect normal Patient seen and examined prior to discharge. Physical assessment as noted above. Patient is stable for discharge with follow up recommendations as noted above. This patient was seen by YOON Coto under the supervision of Dr. Stoll. Time spent examining patient, reviewing data and subsequent management of care: 15 Weight / BMI Weight Weight: 111 lb 8.862 oz Body Mass Index (BMI) 20.4 ABG / Lab / Microbiology Data Result Diagrams: 03/23/21 05:44 03/24/21 01:40 Laboratory: Laboratory Results - last 24 hr 03/24/21 01:40: Vancomycin Trough 6.1 03/24/21 01:40: Sodium 137, Potassium 3.3 L, Chloride 107, Carbon Dioxide 23.0, Anion Gap 7, BUN 9, Creatinine 0.46 L, Estim Creat Clear Calc 99.00, Est GFR (MDRD) Af Amer 176, Est GFR (MDRD) Non-Af 145, BUN/Creatinine Ratio 19.6, Glucose 86, Calcium 8.0 L, Total Bilirubin 0.60, AST 15, ALT 21, Alkaline Phosphatase 71, Total Protein 5.5 L, Albumin 2.4 L, Globulin 3.1, Albumin/Globulin Ratio 0.8 L Microbiology: Microbiology 03/22/21 12:10 Blood Culture (Wb) - Anticubital Right Blood Culture - Preliminary No growth in 48 hours. 03/22/21 12:45 Blood Culture (Wb) - Port Blood Culture - Preliminary No growth in 48 hours. 03/22/21 13:50 Wound - Hand Gram Stain - Final 03/22/21 13:50 Wound - Hand Wound Culture - Final Meth. resistant Staph. aureus 03/23/21 09:20 Nasal Secretion SARS-CoV-2 Antigen (Rapid) - Final Meaningful Use Info Meaningful Use Diagnoses (Choos (more content not included)... [facility] 03-24-2021 History of Past i llness Narrative Problem Noted Date Diagnosed Date Resolved Date Cellulitis 03/24/2021 03/22/2023 Anemia 01/12/2021 03/22/2023 Last Assessment & Plan: Assessment: hx Hemoglobin (g/dL) Date Value 07/13/2021 14.7 04/14/2021 11.9 Hematocrit (%) Date Value 07/13/2021 41.6 04/14/2021 34.7 WBC (k/uL) Date Value 07/13/2021 8.05 04/14/2021 6.65 documented as of this encounter (statuses as of 03/24/2023) [facility] History of Past illness Narrative* Problem Noted Date Diagnosed Date Resolved Date Cellulitis 03/24/2021 03/22/2023 Anemia 01/12/2021 03/22/2023 Last Assessment & Plan: Assessment: hx Hemoglobin (g/dL) Date Value 07/13/2021 14.7 04/14/2021 11.9 Hematocrit (%) Date Value 07/13/2021 41.6 04/14/2021 34.7 WBC (k/uL) Date Value 07/13/2021 8.05 04/14/2021 6.65 documented as of this encounter (statuses as of 03/24/2023) [facility] History of Past illness Narrative* Problem Noted Date Diagnosed Date Resolved Date Cellulitis 03/24/2021 03/22/2023 Anemia 01/12/2021 03/22/2023 Last Assessment & Plan: Assessment: hx Hemoglobin (g/dL) Date Value 07/13/2021 14.7 04/14/2021 11.9 Hematocrit (%) Date Value 07/13/2021 41.6 04/14/2021 34.7 WBC (k/uL) Date Value 07/13/2021 8.05 04/14/2021 6.65 documented as of this encounter (statuses as of 04/12/2023) [facility] History of Past illness Narrative* Problem Noted Date Diagnosed Date Resolved Date Cellulitis 03/24/2021 03/22/2023 Anemia 01/12/2021 03/22/2023 Last Assessment & Plan: Assessment: hx Hemoglobin (g/dL) Date Value 07/13/2021 14.7 04/14/2021 11.9 Hematocrit (%) Date Value 07/13/2021 41.6 04/14/2021 34.7 WBC (k/uL) Date Value 07/13/2021 8.05 04/14/2021 6.65 documented as of this encounter (statuses as of 04/13/2023) [facility] History of Past illness Narrative* Problem Noted Date Diagnosed Date Resolved Date Cellulitis 03/24/2021 03/22/2023 Anemia 01/12/2021 03/22/2023 Last Assessment & Plan: Assessment: hx Hemoglobin (g/dL) Date Value 07/13/2021 14.7 04/14/2021 11.9 Hematocrit (%) Date Value 07/13/2021 41.6 04/14/2021 34.7 WBC (k/uL) Date Value 07/13/2021 8.05 04/14/2021 6.65 documented as of this encounter (statuses as of 04/13/2023) [facility] History of Past illness Narrative* Problem Noted Date Diagnosed Date Resolved Date Cellulitis 03/24/2021 03/22/2023 Anemia 01/12/2021 03/22/2023 Last Assessment & Plan: Assessment: hx Hemoglobin (g/dL) Date Value 07/13/2021 14.7 04/14/2021 11.9 Hematocrit (%) Date Value 07/13/2021 41.6 04/14/2021 34.7 WBC (k/uL) Date Value 07/13/2021 8.05 04/14/2021 6.65 documented as of this encounter (statuses as of 04/18/2023) [facility] History of Past illness Narrative* Problem Noted Date Diagnosed Date Resolved Date Cellulitis 03/24/2021 03/22/2023 Anemia 01/12/2021 03/22/2023 Last Assessment & Plan: Assessment: hx Hemoglobin (g/dL) Date Value 07/13/2021 14.7 04/14/2021 11.9 Hematocrit (%) Date Value 07/13/2021 41.6 04/14/2021 34.7 WBC (k/uL) Date Value 07/13/2021 8.05 04/14/2021 6.65 documented as of this encounter (statuses as of 04/18/2023) [facility]02-02-2022 History of Past illness Narrative* Problem Noted Date Diagnosed Date Resolved Date Cellulitis 03/24/2021 03/22/2023 Anemia 01/12/2021 03/22/2023 Last Assessment & Plan: Assessment: hx Hemoglobin (g/dL) Date Value 07/13/2021 14.7 04/14/2021 11.9 Hematocrit (%) Date Value 07/13/2021 41.6 04/14/2021 34.7 WBC (k/uL) Date Value 07/13/2021 8.05 04/14/2021 6.65 documented as of this encounter (statuses as of 04/21/2023) [facility]02-01-2022 [facility] Medical Records Department [address] [facility] [place] [address] Discharge Summary 03/23/21 1115 MR#: [id number] Acct: [id number] Name: ELIDA PENALOZA Rep #: [id number] : 1955 65 From: Kathy Rubin NP [employer] PCP: Care Physician,No Primary Status:ADM IN Location: MS3 [id number] Documented by User: Kathy Rubin NP, [employer] 03/23/21 11:24 Providers Date of Admission: 03/22/21 Date of Discharge: 03/23/21 Primary Care Physician: No Primary Care Phys Consultations 03/22/21 16:40 Consult: Infectious Disease Routine Consulting Provider: Steven Lazo Reason for Consult: Left hand wound EMERGENT Consult: No MD Notified: Yes Date Notified: 03/23/21 Time Notified: 03:46 Method of Notification: Answering Service Consult: Onc/Wound/complaint specialist Routine Comment: Consult: Plastic Surgery Routine Consulting Provider: Rafa Brown Reason for Consult: Left hand wound EMERGENT Consult: No MD Notified: Yes Date Notified: 03/22/21 Time Notified: 15:39 Method of Notification: Verbal Comments:: Notified by ED Reason For Visit: CELLULITIS / SEPSIS Diagnosis Discharge Diagnosis (1) Cellulitis of left hand: Status: Acute Code(s): L03.114 - Cellulitis of left upper limb Medications at Discharge Home Medications ergocalciferol (vitamin D2) 1,250 mcg PO TH 03/22/21 Hospital Course Operations None Procedures None Summary of Care Provided Hospital Course: Patient is a 65-year-old female admitted 03/22/2021 due to left hand redness and swelling. 1. Sepsis secondary to left hand cellulitis, left ring finger paronychia-left wrist arthrocentesis performed in ER with no fluid aspirated. Hand x-ray with soft tissue swelling. CT shows soft tissue swelling without soft tissue abscess or osteomyelitis. Blood cultures and wound cultures pe nding. IV Vanco, IV Zosyn and IV clindamycin. ID and plastic consult. As needed pain regimen. Du e to progressively worsening appearance, patient transferred to [facility] for further management and inter vention. Accepted by oncology/hand surgery. 2. Breast cancer, undergoing chemotherapy- Follows with Dr. Rivera. 3. Tobacco dependence-encouraged cessation. Physical Exam Const alert, oriented x3 and no apparent distress Orientation / Consciousness: awake, oriented to person, oriented to place and oriented to time Nutritional Appearance: cachectic HEENT normocephalic and moist oral mucous membranes Eyes PERRL, EOMs intact bilaterally and conjunctivae normal Neck no lymphadenopathy Resp normal respiratory effort and clear to auscultation bilaterally Cardio regular rhythm and no murmurs Rate: tachycardic Peripheral Pulses: pulses 2+ throughout GI normal to inspection, nondistended, normoactive bowel sounds, non-tender and non-distended Extremity normal to inspection Skin Skin Narrative: Left finger paronychia with left hand erythema, warmth and swelling as well as ring finger bulla formation. Progressed from prior exam. Lesions: no lesions Rashes: no rashes Trauma: no lacerations or abrasions Neuro CN's II-XII intact bilaterally, no focal motor deficits, no sensory deficits noted and deep tendon reflexes 2+ bilaterally Psych mental status grossly normal and affect normal Patient seen and examined prior to discharge. Physical assessment as noted above. Patient is stable for discharge with follow up recommendations as noted above. This patient was seen by YOON Coto under the supervision of Dr. Simpson. Weight / BMI Weight Weight: 111 lb 8 oz Body Mass Index (BMI) 20.4 ABG / Lab / Microbiology Data Result Diagrams: 03/23/21 05:44 03/23/21 05:44 Laboratory: Laboratory Results - last 24 hr 03/22/21 12:10: WBC 8.4, RBC 3.12 L, Hgb 11.5 L, Hct 33.0 L, MCV 105.8 H, MCH 36.9 H, MCHC 34.8, RDW Std Deviation 51.0 H, RDW Coeff of Eliseo 13.3, Plt Count 158, MPV 10.3, Immature Gran % (Auto) 0.700, Neut % (Auto) 86.4 H, Lymph % (Auto) 5.3 L, [place] % (Auto) 7.1, Eos % (Auto) 0.0, Baso % (Auto) 0.5, Absolute Neuts (auto) 7.2, Absolute Lymphs (auto) 0.44 L, Nucleated RBC % 0 03/22/21 12:10: PT 13.2, INR 1.1, APTT 30.7 03/22/21 12:10: Sodium 131 L, Potassium 3.5, Chloride 101, Carbon Dioxide 23.0, Anion Gap 7, BUN 15, Creatinine 0.52 L, Estim Creat Clear Calc 87.58, Est GFR (MDRD) Af Amer 153, Est GFR (MDRD) Non-Af 127, BUN/Creatinine Ratio 28.9 H, Glucose 128 H, Calcium 8.5, Total Bilirubin 1.40 H, AST 16, ALT 29, Alkaline Phosphatase 82, Total Protein 6.6, Albumin 3.1 L, Globulin 3.5, Albumin/Globulin Ratio 0.9 03/22/21 12:10: Lactic Acid 1.0 03/23/21 05:44: WBC 6.2, RBC 2.79 L, Hgb 10.6 L, Hct 30.5 L, MCV 109.3 H, MCH 38.0 H, MCHC 34.8, RDW Std Deviation 53.2 H, RDW Coeff of [place]iseo 13.3, Plt Count 156, MPV 10.9, Immature Gran % (Auto) 1.000 H , Neut % (Auto) 79.9 H, Lymph % (more content not included)...[facility]02-01-2022 [facility] Medical Records Department [address] [place] [address] Consultation 03/22/21 2316 MR#: [id number] Acct: [id number] Name: ELIDA PENALOZA Rep #: [id number] : 1955 65 From: Rafa Brown MD PCP: Care Physician,No Primary Status:DIS IN Location[place] [facility] [place] [id number] Assessment Plan Assessment/Plan (1) Cellulitis of left hand: (2) Paronychia of left ring finger: (3) History of breast cancer: (4) Complication of chemotherapy: (5) Extensor tenosynovitis of left wrist: (6) Smoker: PLAN: Patient has a left hand infection of several day duration that has shown some improvement with IV antibiotics (Vancomycin, Zosyn, and Clindamycin). Patient has a history of breast cancer and is currently getting chemotherapy treatments (4 treatments left). However the infection has plateaued and the pain has worsened. Recommend operative intervention for incision and drainage and excisional debridement of left hand infection including drainage of paronychial infection and debridement of localized blistering on the dorsum left ring finger. If extensor tenosynovitis is present at the wrist level then an extensor tenosynovectomy will be performed. The incisions I make on the dorsum of the left hand will be left open and wound care started with Silver dressing changes. Would encourage range of motion exercises to minimize stiffness. As an outpatient, will set up OT for range of motion exercises, strengthening, and edema management. Surgery will be done under general anesthesia and tourniquet control. Will schedule it tomorrow. Anticipate increased metabolic demands. Check a Prealbumin and encourage nutritional supplementation with protein to help the healing process. Based on the operative cultures, antibiotic modification may be necessary. She is currently on Vancomycin and Zosyn. Patient was informed of the risks and complications of the procedure including alternatives to surgery. These were discussed with the patient personally. Patient voices understanding and wishes to proceed. Some of the risks and complications were included in a form from the [employer]. Encouraged patient to stop smoking as it may have deleterious effects on wound healing. HPI Consult Data Date of Consult: 03/22/21 PCP / Referring MD: Dr. Sharmin Alvarez MD Attending Care Provider: Dr. Sharmin Alvarez MD HPI Narrative Reason for Consultation: Left hand infection. HPI Narrative: ELIDA PENALOZA, is a 65 year old woman who presents to the emergency room with increasing pain, and redness, and swelling in her left hand. She denied trauma. Patient states her left ring finger nail bed was sore 2 days ago with what appears to be a paronychia. Patient has breast cancer and is undergoing chemotherapy. She has 4 treatments left. She was seen by her Oncologist who recommended she go to the ED for further evaluation. She denies prior infections or complications related to chemo. She denies fever, chills. Reports general malaise. Denies drainage from left hand. Hand x-ray showed soft tissue swelling without evidence of soft tissue abscess or osteomyelitis. WBC was 8.4. She was started on Vancomycin and Zosyn and Clindamycin. I was asked to evaluate this patient for surgical options for treatment. An MRI of the extremity and hand is scheduled for tomorrow. PFSH Medical History Breast cancer Complication of chemotherapy Extensor tenosynovitis of left wrist Paronychia of left ring finger Port-A-Cath in place Smoker Home Medications ergocalciferol (vitamin D2) 1,250 mcg PO TH 03/22/21 [History Last Taken 03/18/21] Allergy/AdvReac Type Severity Reaction Status Date / Time No Known Allergies Allergy Verified 03/22/21 12:24 Family History Mother Cancer Father Cancer Surgical History H/O tubal ligation History of bunionectomy Social History Smoking Status: Current every day smoker tobacco type: cigarettes alcohol intake: never substance use type: does not use ROS ROS Narrative Constitutional: Reports malaise; Denies change in weight, chills, fatigue, fever(s) or weakness Cardiovascular: Denies chest pain, edema, lightheadedness, palpitations or syncope Respiratory/Chest: Denies cough, dyspnea, productive cough, shortness of breath at rest, shortness of breath with exertion or wheezing Gastrointestinal: Denies abdominal pain, constipation, diarrhea, nausea or vomiting Genitourinary: Denies burning urination, difficulty urinating, dysuria, hematuria, urinary frequency, urinary incontinence or urinary urgency Musculoskeletal: Denies back pain, joint pain or muscle weakness Integumentary: Reports other Detai (more content not included)...[facility]11-29-2021 NoteHNO ID: [id number] Author: RT Yadira(R) Service: Radiology Author Type: Technologist Type: Progress Notes Filed: 01/18/2021 1:52 PM Note Text: Radiology Service Progress Note PATIENT NAME: Elida Penaloza DATE OF SERVICE: January 18, 2021 TIME: 1:52 PM PATIENT IDENTITY VERIFICATION COMPLETED USING TWO (2) IDENTIFIERS: Name and Date of confirmed by patient verbally. FALL SCREENING: Has the patient had 2 falls in the last year or 1 fall with injury or currently using an Ambulatory Assistive Device (Walker, Cane, Wheelchair, Crutches, etc.)? No PATIENT GENDER DATA: Female. 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) Secondary and unspecified malignant neoplasm of lymph nodes of axilla and upper limb documented in this encounter [facility]* Diagnosis Malignant neoplasm of upper-outer quadrant of left breast in female, 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 [place] [facility]* Diagnosis Malignant neoplasm of upper-outer quadrant of left breast in female, estrogen receptor positive (HCC) [facility] [place] [facility]* Diagnosis Breast disorder- Primary Unspecified breast disorder Breast disorder Unspecified breast disorder documented in this encounter [facility]* Diagnosis Breast disorder- Primary Unspecified breast disorder Breast disorder Unspecified breast disorder documented in this encounter [facility] note* Diagnosis Malignant neoplasm of upper-outer quadrant of left breast in female, estrogen receptor positive (HCC) Breast disorder Unspecified breast disorder documented in this encounter [facility] note* Diagnosis Breast disorder Unspecified breast disorder Breast disorder Unspecified breast disorder documented in this encounter [facility] note* Diagnosis Malignant neoplasm of upper-outer quadrant of left breast in female, 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 [place] [facility]* Diagnosis Breast cancer metastasized to axillary lymph node, left (HCC)- Primary Smoking Tobacco use disorder [facility] this 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 Secondary and unspecified malignant neoplasm of lymph nodes of axilla and upper limb Breast cancer metastasized to axillary lymph node, left (HCC) [facility] Malignant neoplasm of upper-outer quadrant of left breast in female, estrogen receptor positive (HCC)- Primary Breast cancer metastasized to axillary lymph node, left (HCC) [facility] Diagnosis Personal history of breast cancer- Primary Personal history of malignant neoplasm of breast Breast cancer screening, high risk patient Screening mammogram for high-risk patient [facility] [place] [facility] Diagnosis Malignant neoplasm of upper-outer quadrant of left breast in female, estrogen receptor positive (HCC)- Primary Vitamin D deficiency Unspecified vitamin D deficiency Encounter for screening for osteoporosis Special screening for osteoporosis Asymptomatic postmenopausal status [facility] [place] [facility] Diagnosis Malignant neoplasm of upper-outer quadrant of left breast in female, estrogen receptor positive (HCC)- Primary [facility] [place] [facility] Diagnosis Malignant neoplasm of upper-outer quadrant of left breast in female, estrogen receptor positive (HCC)- Primary [facility] [place] [facility]* Diagnosis Breast cancer metastasized to axillary lymph node, left (HCC)- Primary Malignant neoplasm of upper-outer quadrant of left breast in female, estrogen receptor positive (HCC) [facility] [place] [facility]* Diagnosis Malignant neoplasm of upper-outer quadrant of left breast in female, estrogen receptor positive (HCC)- Primary [facility] [place] [facility]* Diagnosis Malignant neoplasm of upper-outer quadrant of left breast in female, estrogen receptor positive (HCC)- Primary [facility] [place] [facility]* Diagnosis Malignant neoplasm of upper-outer quadrant of left breast in female, estrogen receptor positive (HCC)- Primary [facility] Diagnosis Malignant neoplasm of upper-outer quadrant of left breast in female, estrogen receptor positive (HCC)- Primary [facility] [place] [facility]* Diagnosis Malignant neoplasm of upper-outer quadrant of left breast in female, estrogen receptor positive (HCC)- Primary [facility] Diagnosis Malignant neoplasm of upper-outer quadrant of left breast in female, estrogen receptor positive (HCC) Vitamin D deficiency Unspecified vitamin D deficiency [facility] [place] [facility]* Diagnosis Malignant neoplasm of upper-outer quadrant of left breast in female, estrogen receptor positive (HCC)- Primary [facility] [place] [facility]* Diagnosis Malignant neoplasm of upper-outer quadrant of left breast in female, estrogen receptor positive (HCC)- Primary Vitamin D deficiency Unspecified vitamin D deficiency Osteopenia after menopause [facility] [place] [facility]* Diagnosis Osteopenia after menopause- Primary Breast cancer metastasized to axillary lymph node, left (HCC) [facility] [place] [facility]* Diagnosis Malignant neoplasm of upper-outer quadrant of left breast in female, estrogen receptor positive (HCC)- Primary [facility] [place] [facility]* Diagnosis Malignant neoplasm of upper-outer quadrant of left breast in female, estrogen receptor positive (HCC) [facility] [place] [facility]* Diagnosis Breast cancer metastasized to axillary lymph node, left (HCC)- Primary [facility] [place] [facility]* Diagnosis Malignant neoplasm of upper-outer quadrant of left breast in female, estrogen receptor positive (HCC)- Primary Vitamin D deficiency Unspecified vitamin D deficiency Encounter for screening mammogram for high-risk patient [facility] [place] [facility]* Diagnosis Elbow injury, initial encounter- Primary [facility] [place] [facility]* Diagnosis Dysuria- Primary [facility] [place] [facility]* Diagnosis Left axillary pain- Primary Pain in limb Mastodynia Breast cancer metastasized to axillary lymph node, left (HCC) [facility] [place] [facility]* Diagnosis Vitamin D deficiency- Primary Unspecified vitamin D deficiency Encounter for lipid screening for cardiovascular disease Screening for lipoid disorders Impaired glucose metabolism Impaired glucose tolerance test [facility] [place] [facility]* Diagnosis Breast cancer metastasized to axillary lymph node, left (HCC)- Primary [facility] Diagnosis Malignant neoplasm of upper-outer quadrant of left breast in female, estrogen receptor positive (HCC)- Primary Encounter for screening mammogram for high-risk patient [facility] [place] [facility]* Diagnosis Malignant neoplasm of upper-outer quadrant of left breast in female, estrogen receptor positive (HCC) Axillary pain, left [facility] [place] [facility]* Diagnosis Malignant neoplasm of upper-outer quadrant of left breast in female, estrogen receptor positive (HCC) Encounter for screening mammogram for high-risk patient [facility] Diagnosis Medicare welcome exam- Primary Routine general medical examination at a health care facility Chronic pain of both shoulders Pain in joint, shoulder region Elevated blood pressure reading Elevated blood pressure reading without diagnosis of hypertension Vitamin D deficiency Unspecified vitamin D deficiency Osteopenia after menopause Encounter for screening for lung cancer Colon cancer screening Special screening for malignant neoplasms, colon Encounter for lipid screening for cardiovascular disease Screening for lipoid disorders [facility] Diagnosis Pure hypercholesterolemia- Primary [facility]* Diagnosis Encounter for screening for lung cancer- Primary Tobacco use current [facility] Diagnosis Positive colorectal cancer screening using Cologuard test- Primary [facility] Diagnosis Lung nodule- Primary Solitary pulmonary nodule [facility] Diagnosis Positive colorectal cancer screening using Cologuard test- Primary [facility]* Diagnosis Malignant neoplasm of upper-outer quadrant of left breast in female, estrogen receptor positive (HCC) [facility] Diagnosis Lung nodule- Primary Solitary pulmonary nodule Former tobacco use Personal history of tobacco use, presenting hazards to health [facility] Diagnosis Lung nodules Other nonspecific abnormal finding of lung field [facility]* Diagnosis Malignant neoplasm of upper-outer quadrant of left breast in female, estrogen receptor positive (HCC) Encounter for screening mammogram for high-risk patient [facility]* Diagnosis PVC (premature ventricular contraction)- Primary Other premature beats Coronary artery calcification seen on CAT scan Coronary atherosclerosis of unspecified type of vessel, [place] or graft Pure hypercholesterolemia [facility]* Diagnosis Breast cancer metastasized to axillary lymph node, left (HCC)- Primary [facility]* Diagnosis Personal history of breast cancer Personal history of malignant neoplasm of breast Breast cancer screening, high risk patient Screening mammogram for high-risk patient [facility] Diagnosis Lung nodule- Primary Solitary pulmonary nodule Former tobacco use Personal history of tobacco use, presenting hazards to health Encounter for screening for lung cancer [facility] Diagnosis Medicare welcome exam- Primary Routine general medical examination at a health care facility Foot injury, left, initial encounter Left foot pain Pain in limb Elevated blood pressure reading Elevated blood pressure reading without diagnosis of hypertension Screening for depression Encounter for screening examination for other mental health and behavioral disorders Coronary artery calcification seen on CAT scan Coronary atherosclerosis of unspecified type of vessel, [place] or graft [facility] Closed nondisplaced fracture of fifth metatarsal bone of left foot, initial encounter- Primary [facility] [place] [facility]* Diagnosis Osteopenia after menopause [facility] [place] [facility] Diagnosis Encounter for screening mammogram for high-risk patient- Primary Breast cancer metastasized to axillary lymph node, left (HCC) [facility] [place] [facility] Diagnosis Hollenhorst plaque, 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 [place] [facility] Diagnosis Pure hypercholesterolemia- Primary [facility] [place] [facility]* Diagnosis Breast cancer metastasized to axillary lymph node, left (HCC)- Primary documented in this encounter [facility] for referral (narrative)* Diagnostic Procedure Only (Routine) - Authorized Specialty Diagnoses / Procedures Referred By Dewayne bull Referred To Contact BR IMAGING Diagnoses Malignant neoplasm of upper-outer quadrant of left breast in female, estrogen receptor positive (HCC) Procedures CANELO DIAGNOSTIC LT DIAGNOSTIC MAMMOGRAPHY COMPUTER-AIDED DETCJ [facility] Stevo Gregory MD [address] [place] [address] Br Imaging [address] [place] [phone] Referral ID Status Reason Start Date Expiration Date Visits Requested Visits Authorized [id number] Authorized Auto-Generat ed Referral 06/08/2021 02/19/2022 1 1 [facility] for referral (narrative)* Diagnostic Procedure Only (Routine) - Closed Specialty Diagnoses / Procedures Referred By Dewayne bull Referred To Contact BR IMAGING Diagnoses Malignant neoplasm of upper-outer quadrant of left breast in female, estrogen receptor positive (HCC) Procedures US BREAST LTD LT US BREAST UNI REAL TIME WITH IMAGE LIMITED Stevo Gregory MD [address] [place] [address] Br Imaging [address] [place] [place] [phone] Referral ID Status Reason Start Date Expiration Date V isits Requested Visits Authorized [id number] Closed Auto-Generate d Referral 06/09/2021 02/19/2022 1 1 [facility] for referral (narrative)* Diagnostic Procedure Only (Routine) - Pending Review Specialty Diagnoses / Procedures Referred By Dewayne bull Referred To Contact BR IMAGING Diagnoses Breast disorder Procedures US BREAST LTD LT US BREAST UNI [place] [address] [place] [address] [facility] Imaging [address] [place] [phone] Referral ID Status Reason Start Date Expiration Date Visits Requested Visits Authorized [id number] Pending Review Auto-Generat ed Referral 07/05/2021 08/04/2022 1 1 T [facility] for referral (narrative)* Diagnostic Procedure Only (Routine) - Pending Review Specialty Diagnoses / Procedures Referred By Dewayne bull Referred To Contact BR IMAGING Diagnoses Breast disorder Procedures US BIOPSY BREAST LT BX BREAST W/DEVICE 1ST LESION ULTRASOUND GUID Anel Tian MD [address] [address] Br Imaging [address] [place] [phone] Referral ID Status Reason Start Date Expiration Date Visits Requested Visits Authorized [id number] Pending Review Auto-Generat ed Referral 07/05/2021 08/04/2022 1 1 T [facility] for referral (narrative)* Diagnostic Procedure Only (Routine) - Waiting for Response Specialty Diagnoses / Procedures Referred By Dewayne t Referred To Contact [facility] IM[facility] Diagnoses Breast disorder Procedures US BREAST LTD LT US BREAST UNI REAL TIME WITH IMAGE LIMITED Anel Tian MD [address] [address] Br Imaging [address] [place] [phone] Referral ID Status Reason Start Date Expiration Date Visits Requested Visits Authorized [id number] Waiting for Response Auto-Generat ed Referral 07/05/2021 08/04/2022 1 1 [facility] for referral (narrative)* Diagnostic Procedure Only (Routine) - Pending Review Specialty Diagnoses / Procedures Referred By Dewayne bull Referred To Contact [facility] IMAG[facility] Diagnoses Personal history of breast cancer Breast cancer screening, high risk patient Procedures CANELO DIAGNOSTIC RT DIAGNOSTIC MAMMOGRAPHY COMPUTER-AIDED DETCJ [facility] Kelsie Mendoza PA-C [address] [place] [address] Br Imaging [address] [place] [phone] Referral ID Status Reason Start Date Expiration Date Visits Requested Visits Authorized [id number] Pending Review Auto-Generat ed Referral 09/08/2021 10/08/2022 1 1 [facility] for referral (narrative)* Diagnostic Procedure Only (Routine) - Pending Review Specialty Diagnoses / Procedures Referred By Dewayne t Referred To Contact BR IMAG[facility] Diagnoses Malignant neoplasm of upper-outer quadrant of left breast in female, estrogen receptor positive (HCC) Encounter for screening mammogram for high-risk patient Procedures CANELO SCREENING SCREENING MAMMOGRAPHY BI 2-VIEW BREAST INC Vanesa Herbert, REGIS.EMS DRIVER [address] [place] [address] Br Imaging [address] [place] [address] Referral ID Status Reason Start Date Expiration Date Visits Requested Visits Authorized [id number] Pending Review Auto-Generat ed Referral 06/14/2022 07/14/2023 1 1 [facility] for referral (narrative)* Diagnostic Procedure Only (Urgent) - Closed Specialty Diagnoses / Procedures Referred By Contac t Referred To Contact XR IMAGING Diagnoses Elbow injury, initial encounter Procedures XR ELBOW SPECIAL VIEWS AP/LAT/OTHER LEFT RADEX ELBOW COMPLETE MINIMUM 3 [address] Mt Beasley APRN.EMS DRIVER [address] [place] [address] Xr Imaging Referral ID Status Reason Start Date Expiration Date V isits Requested Visits Authorized [id number] Closed Auto-Generate d Referral 06/23/2022 07/23/2023 1 1 [facility] for referral (narrative)* Diagnostic Procedure Only (Routine) - Authorized Specialty Diagnoses / Procedures Referred By Contac t Referred To Contact [facility] IM[facility] Diagnoses Left axillary pain Mastodynia Procedures CANELO DIAGNOSTIC LEFT DIAGNOSTIC MAMMOGRAPHY COMPUTER-[place] [address] [place] [address] Br Imaging [address] [place] [address] Referral ID Status Reason Start Date Expiration Date Visits Requested Visits Authorized [id number] Authorized Auto-Generat ed Referral 09/14/2022 10/14/2023 1 1 [facility] for referral (narrative)* Diagnostic Procedure Only (Routine) - Authorized Specialty Diagnoses / Procedures Referred By Contac t Referred To Contact BR IMAG[facility] Diagnoses Malignant neoplasm of upper-outer quadrant of left breast in female, estrogen receptor positive (HCC) Encounter for screening mammogram for high-risk patient Procedures CANELO SCREENING SCREENING MAMMOGRAPHY BI 2-VIEW BREAST INC Vanesa Herbert APRN.EMS DRIVER [address] [place] [address] Br Imaging [address] [place] [address] Referral ID Status Reason Start Date Expiration Date Visits Requested Visits Authorized [id number] Authorized Auto-Generat ed Referral 12/29/2023 1 1 T [facility] for referral (narrative)* Diagnostic Procedure Only (Routine) - Closed Specialty Diagnoses / Procedures Referred By Contac t Referred To Contact BR IMAGING Diagnoses Malignant neoplasm of upper-outer quadrant of left breast in female, estrogen receptor positive (HCC) Axillary pain, left Procedures US BREAST LTD LEFT US BREAST UNI REAL [place] [address] [place] [id number] Br Imaging [address] [place] [address] Referral ID Status Reason Start Date Expiration Date V isits Requested Visits Authorized [id number] Closed Auto-Generate d Referral 10/06/2022 11/05/2023 1 1 T [facility] for referral (narrative)* Diagnostic Procedure Only (Routine) - Closed Specialty Diagnoses / Procedures Referred By Contac t Referred To Contact BR IMAGING Diagnoses Malignant neoplasm of upper-outer quadrant of left breast in female, estrogen receptor positive (HCC) Encounter for screening mammogram for high-risk patient Procedures CANELO SCREENING SCREENING MAMMOGRAPHY BI 2-VIEW BREAST INC Vanesa Herbert APRN.CNP [address] [place] [address] Br Imaging [address] [place] [address] Referral ID Status Reason Start Date Expiration Date V isits Requested Visits Authorized [id number] Closed Auto-Generate d Referral 06/14/2022 07/14/2023 1 1 [facility] for referral (narrative)* Outpatient Procedure (Routine) - Closed Specialty Diagnoses / Procedures Referred By Contac t Referred To Contact [facility] Diagnoses Positive colorectal cancer screening using Cologuard test Procedures EGD DIAGNOSTIC ESOPHAGOGASTRODUODENOSC OPY TRANSORAL DIAGNOSTIC Sofya Nelson PA-C [address] [place] [address] [facility] [address] [place] [address] Referral ID Status Reason Start Date Expiration Date V isits Requested Visits Authorized [id number] Closed Auto-Generate d Referral 03/03/2023 03/03/2024 1 1 * Outpatient Procedure (Routine) - Closed Specialty Diagnoses / Procedures Referred By Dewayne bull Referred To Contact [facility] Diagnoses Positive colorectal cancer screening using Cologuard test Procedures COLONOSCOPY DIAGNOSTIC COLONOSCOPY FLX DX W/COLLJ SPEC WHEN PFRMD Sofya Nelson PA-C [address] [place] [address] [facility] Disease [address] [address] Referral ID Status Reason Start Date Expiration Date V isits Requested Visits Authorized [id number] Closed Auto-Generate d Referral 03/03/2023 03/03/2024 1 1 [facility] for referral (narrative)* Diagnostic Procedure Only (Routine) - Closed Specialty Diagnoses / Procedures Referred By Dewayne bull Referred To Contact BR IMAGING Diagnoses Malignant neoplasm of upper-outer quadrant of left breast in female, estrogen receptor positive (HCC) Encounter for screening mammogram for high-risk patient Procedures CANELO SCREENING SCREENING MAMMOGRAPHY BI 2-VIEW BREAST INC Vanesa Herbert APRN.CNP [address] [place] [address] Br Imaging [address] [place] [address] Referral ID Status Reason Start Date Expiration Date V isits Requested Visits Authorized [id number] Closed Auto-Generate d Referral 11/29/2022 12/29/2023 1 1 [facility] for referral (narrative)* Diagnostic Procedure Only (Routine) - Closed Specialty Diagnoses / Procedures Referred By Contac t Referred To Contact XR IMAGING Diagnoses Foot injury, left, initial encounter Left foot pain Procedures XR FOOT GENERAL 3V AP/LAT/OBL LEFT RADEX FOOT COMPLETE MINIMUM 3 VIEWS Wanda Nowak, DATABASE SOFTWARE TECHNICIAN.EMS DRIVER [address] [place] [address] [place] [address] Referral ID Status Reason Start Date Expiration Date V isits Requested Visits Authorized [id number] Closed Auto-Generate d Referral 01/09/2024 02/07/2025 1 1 [facility] for referral (narrative)* Diagnostic Procedure Only (Routine) - Authorized Specialty Diagnoses / Procedures [facility] To Contact [facility] Diagnoses Encounter for screening mammogram for high-risk patient Procedures CANELO SCREENING SCREENING MAMMOGRAPHY BI 2-[place] [address] [place] [address] Br Imaging [address] [place] [address] Referral ID Status Reason Start Date Expiration Date Visits Requested Visits Authorized [id number] Authorized Auto-Generat ed Referral 4 03/02/2025 1 1 [facility] for referral (narrative)* Outpatient Procedure (Routine) - Authorized Specialty Diagnoses / Procedures Referred By Contac t Referred To Contact [facility] Diagnoses Hollenhorst plaque, right eye Procedures US CAROTID ARTERIES [facility] DUPLEX SCAN EXTRACRANIAL ART COMPL BI STUDY Ronn Wang MD [address] [place] [address] [facility] [address] [place] [address] Referral ID Status Reason Start Date Expiration Date Visits Requested Visits Authorized [id number] Authorized Auto-Generat ed Referral 4 01/31/2025 1 1 [facility] for visit Narrative* Diagnostic Procedure Only (Routine) - Closed Specialty Diagnoses / Procedures Referred By Dewayne bull Referred To Contact BR IMAG[facility] Diagnoses Malignant neoplasm of upper-outer quadrant of left breast in female, estrogen receptor positive (HCC) Procedures CANELO DIAGNOSTIC LT DIAGNOSTIC MAMMOGRAPHY COMPUTER-AIDED DETCJ [facility] Stevo Gregory MD [address] [place] [address] Br Imaging [address] [place] [address] Referral ID Status Reason Start Date Expiration Date V isits Requested Visits Authorized [id number] Closed Auto-Generate d Referral 06/08/2021 02/19/2022 1 1 [facility] for visit Narrative* Diagnostic Procedure Only (Routine) - Closed Specialty Diagnoses / Procedures Referred By Dewayne bull Referred To Contact BR IMAG[facility] Diagnoses Malignant neoplasm of upper-outer quadrant of left breast in female, estrogen receptor positive (HCC) Procedures US BREAST LTD LT US BREAST UNI REAL TIME WITH IMAGE LIMITED Stevo Gregory MD [address] [place] [address] Br Imaging [address] [place] [address] Referral ID Status Reason Start Date Expiration Date V isits Requested Visits Authorized [id number] Closed Auto-Generate d Referral 06/09/2021 02/19/2022 1 1 [facility] for visit Narrative* Diagnostic Procedure Only (Routine) - Waiting for Response Specialty Diagnoses / Procedures Referred By Dewayne bull Referred To Contact BR IMAGING Diagnoses Breast disorder Procedures US BREAST LTD LT US BREAST UNI REAL TIME WITH IMAGE LIMITED Anel Tian MD [address] [place] [address] Br Imaging [address] [place] [address] Referral ID Status Reason Start Date Expiration Date Visits Requested Visits Authorized [id number] Waiting for Response Auto-Generat ed Referral 07/05/2021 08/04/2022 1 1 [facility] for visit Narrative* Diagnostic Procedure Only (Routine) - Closed Specialty Diagnoses / Procedures Referred By Dewayne t Referred To Contact Hematology/Oncology / HEMATOLOGY/ONCOLOGY Diagnoses Malignant neoplasm of upper-outer quadrant of left female breast Estrogen receptor positive status (ER+) Secondary and unspecified malignant neoplasm of axilla and upper limb lymph nodes tablet/CBC/CMP/OV/CHEMO 02/24* Procedures COMP METABLC PN PROFESSIONAL FEE COMPL CBC W PLT W AUTOM DIFF NURSE VISIT Abiola Rivera MD [address] [place] [address] [facility], [facility] [facility] [address] [place] [address] Referral ID Status Reason Start Date Expiration Date Visits Re quested Visits Authorized [id number] Closed 05/18/2021 02/19/2022 1 1 [facility] for visit Narrative* Diagnostic Procedure Only (Routine) - Closed Specialty Diagnoses / Procedures Referred By Dewayne bull Referred To Contact BR IMAG[facility] Diagnoses Malignant neoplasm of upper-outer quadrant of left breast in female, estrogen receptor positive (HCC) Encounter for screening mammogram for high-risk patient Procedures CANELO SCREENING SCREENING MAMMOGRAPHY BI 2-VIEW BREAST INC Vanesa Herbert, DATABASE SOFTWARE TECHNICIAN.[facility] [address] [place] [address] Br Imaging [address] [place] [address] Referral ID Status Reason Start Date Expiration Date V isits Requested Visits Authorized [id number] Closed Auto-Generate d Referral 06/14/2022 07/14/2023 1 1 [facility] for visit Narrative* Outpatient Procedure (Routine) - Closed Specialty Diagnoses / Procedures [facility] Referred To Contact [facility] Diagnoses Positive colorectal cancer screening using Cologuard test Procedures EGD DIAGNOSTIC ESOPHAGOGASTRODUODENOSC OPY TRANSORAL DIAGNOSTIC Sofya Nelson PA-C [address] [place] [address] [facility] [place] [address] [place] [address] Referral ID Status Reason Start Date Expiration Date V isits Requested Visits Authorized [id number] Closed Auto-Generate d Referral 03/03/2023 03/03/2024 1 1 [facility] for visit Narrative* Diagnostic Procedure Only (Routine) - Closed Specialty Diagnoses / Procedures Referred By Contac t Referred To Contact BR IMAGING Diagnoses Malignant neoplasm of upper-outer quadrant of left breast in female, estrogen receptor positive (HCC) Encounter for screening mammogram for high-risk patient Procedures CANELO SCREENING SCREENING MAMMOGRAPHY BI 2-VIEW BREAST INC CAD Vanesa Cortes, DATABASE SOFTWARE TECHNICIAN.EMS DRIVER [address] [place] [address] Br Imaging [address] [place] [address] Referral ID Status Reason Start Date Expiration Date V isits Requested Visits Authorized [id number] Closed Auto-Generate d Referral 11/29/2022 12/29/2023 1 1 [facility] for visit Narrative* Diagnostic Procedure Only (Urgent) - Closed Specialty Diagnoses / Procedures Referred By Contac t Referred To Contact XR IMAGING Diagnoses Elbow injury, initial encounter Procedures XR ELBOW SPECIAL VIEWS AP/LAT/OTHER LEFT RADEX ELBOW COMPLETE MINIMUM 3 VIEWS Mt Beasley, DATABASE SOFTWARE TECHNICIAN.EMS DRIVER [address] [place] [address] [place] [address] Referral ID Status Reason Start Date Expiration Date V isits Requested Visits Authorized [id number] Closed Auto-Generate d Referral 06/23/2022 07/23/2023 1 1 [facility] for visit Narrative* Diagnostic Procedure Only (Routine) - Closed Specialty Diagnoses / Procedures Referred By Contac t Referred To Contact XR IMAGING Diagnoses Foot injury, left, initial encounter Left foot pain Procedures XR FOOT GENERAL 3V AP/LAT/OBL LEFT RADEX FOOT COMPLETE MINIMUM 3 VIEWS Wanda Nowak, DATABASE SOFTWARE TECHNICIAN.EMS DRIVER [address] [place] [address] [place] [address] Referral ID Status Reason Start Date Expiration Date V isits Requested Visits Authorized [id number] Closed Auto-Generate d Referral 01/09/2024 02/07/2025 1 1 [facility] Summary Purpose Family History No Family History Records FoundNo Family History Records FoundNo Family History Records FoundNo Family History Records FoundNo Family History Records Found Advance Directives No Advanced Directives Records FoundDocuments on File Type Date Recorded Patient Supervisor Contingents Expl anation Advance Directive(s) 03/26/2021 8:09 PM Advance Directive(s) 01/18/2021 9:51 AM Latest Code Status on File Code Status Date Activated Date Inactivated Comments Full Code 03/24/2021 7:20 PM 03/27/2021 6:23 PM Full Code Order Discussed With: Patient Documents on File Type Date Recorded Patient Supervisor Contingents Expl anation Advance Directive(s) 03/26/2021 8:09 PM Advance Directive(s) 01/18/2021 9:51 AM Latest Code Status on File Code Status Date Activated Date Inactivated Comments Full Code 03/24/2021 7:20 PM 03/27/2021 6:23 PM Documents on File Type Date Recorded Patient Supervisor Contingents Expl anation Advance Directive(s) 08/26/2021 12:41 PM Advance Directive(s) 03/26/2021 8:09 PM Advance Directive(s) 01/18/2021 9:51 AM Documents on File Type Date Recorded Patient Supervisor Contingents Expl anation Advance Directive(s) 08/26/2021 12:41 PM Advance Directive(s) 03/26/2021 8:09 PM Advance Directive(s) 01/18/2021 9:51 AM Latest Code Status on File Code Status Date Activated Date Inactivated Comments Full Code 03/24/2021 7:20 PM 03/27/2021 6:23 PM Question Answer Comments Full Code Order Discussed With: Patient Latest Code Status on File Code Status Date Activated Date Inactivated Comments Full Code 03/24/2021 7:20 PM 03/27/2021 6:23 PM Question Answer Comments Full Code Order Discussed With: Patient Latest Code Status on File Code Status Date Activated Date Inactivated Comments Full Code 03/24/2021 7:20 PM 03/27/2021 6:23 PM Question Answer Comments Full Code Order Discussed With: Patient Date Activated Date Inactivated Comments 03/24/2021 7:20 PM 03/27/2021 6:23 PM Question Answer Comments Full Code Order Discussed With: Patient Date Activated Date Inactivated Comments 03/24/2021 7:20 PM 03/27/2021 6:23 PM Question Answer Comments Full Code Order Discussed With: Patient Reason for Referral Specialty Diagnoses / Procedures Referred By Dewayne t Referred To Contact MR IMAGING Diagnoses Malignant neoplasm of upper-outer quadrant of left breast in female, 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) Procedures MRI BREAST WO/W IVCON BILAT MRI BREAST WITHOUT&WITH CONTRAST W/CAD BILATERAL Abiola Rivera MD [address] [place] [address] Mr Imaging Referral ID Status Reason Start Date Expiration Date V isits Requested Visits Authorized [id number] Closed Auto-Generat ed Referral Clearance Not Met - Admin/Chairm an/Director Advise to Postpone/Res chedule or Not Proceed 05/14/2021 02/19/2022 1 1 Specialty Diagnoses / Procedures Referred By Dewayne bull Referred To Contact MR IMAGING Diagnoses Malignant neoplasm of upper-outer quadrant of left breast in female, estrogen receptor positive (HCC) Procedures MRI BREAST BX WO/W IVCON LT BX BREAST W/DEVICE 1ST LESION MAGNETIC RES GUID Stevo Gregory MD [address] [facility] [place] [address] Mr Imaging Referral ID Status Reason Start Date Expiration Date V isits Requested Visits Authorized [id number] Closed Auto-Generate d Referral 06/17/2021 06/17/2022 1 1 Specialty Diagnoses / Procedures Referred By Dewayne bull Referred To Contact [facility] Diagnoses Malignant neoplasm of upper-outer quadrant of left breast in female, estrogen receptor positive (HCC) Procedures CONSULT TO BREAST REHAB PROGRAM THERAPEUTIC EXERCISES RE, EA 15 MIN. THERAPEUT ACTVITY DIRECT PT CONTACT EACH 15 MIN Kelsie Mendoza PA-C [address] [place] [address] [facility] [address] [place] [address] Referral ID Status Reason Start Date Expiration Date Visits Requested Visits Authorized [id number] Pending Review PCP Requested Referral Auto-Generate d Referral 09/21/2021 09/21/2022 1 1 Specialty Diagnoses / Procedures Referred By Dewayne bull Referred To Contact [facility] Diagnoses Chronic pain of both shoulders Procedures CONSULT TO PHYSICAL THERAPY PHYSICAL THERAPY EVALUATION HIGH COMPLEX 45 MINS Older, Wanda, DATABASE SOFTWARE TECHNICIAN.EMS DRIVER [address] [id number] [facility] [address] [place] [address] Referral ID Status Reason Start Date Expiration Date Visits Requested Visits Authorized [id number] Authorized PCP Requested Referral Auto-Generate d Referral 3 01/04/2024 99 99 Specialty Diagnoses / Procedures Referred By Contac t Referred To Contact XR IMAGING Diagnoses Chronic pain of both shoulders Procedures XR SHOULDER GENERAL 3V OR MORE AP/TRUE AP/OTHER RIGHT RADEX SHOULDER COMPLETE MINIMUM 2 VIEWS Older, Wanda, DATABASE SOFTWARE TECHNICIAN.EMS DRIVER [address] [place] [address] [place] [address] Referral ID Status Reason Start Date Expiration Date Visits Requested Visits Authorized [id number] Pending Review Auto-Generat ed Referral 3 02/03/2024 1 1 Specialty Diagnoses / Procedures Referred By Contac t Referred To Contact XR IMAGING Diagnoses Chronic pain of both shoulders Procedures XR SHOULDER GENERAL 3V OR MORE AP/TRUE AP/OTHER LEFT RADEX SHOULDER COMPLETE MINIMUM 2 VIEWS Franklin, Wanda, DATABASE SOFTWARE TECHNICIAN.EMS DRIVER [address] [place] [address] [place] [address] Referral ID Status Reason Start Date Expiration Date Visits Requested Visits Authorized [id number] Pending Review Auto-Generat ed Referral 3 02/03/2024 1 1 Specialty Diagnoses / Procedures Referred By Contac t Referred To Contact CT IMAGING Diagnoses Tobacco use current Procedures CT LUNG SCREEN WO IVCON COMPUTED TOMOGRAPHY THORAX LW DOSE LNG CA SERENITY Mcintyre- Ronnie Urban, DATABASE SOFTWARE TECHNICIAN.EMS DRIVER [address] [place] [address] [place] [address] Referral ID Status Reason Start Date Expiration Date Visits Requested Visits Authorized [id number] Authorized Auto-Generat ed Referral 01/24/2023 02/23/2024 1 1 Specialty Diagnoses / Procedures Referred By Contac t Referred To Contact Pulmonary Disease Diagnoses Lung nodule Procedures CONSULT TO LUNG NODULE CLINIC OFFICE/OUTPATIENT [facility] 60 MINUTES Mae Arellano, DATABASE SOFTWARE TECHNICIAN.EMS DRIVER [address] [place] [address] Referral ID Status Reason Start Date Expiration Date Visits Requested Visits Authorized [id number] Authorized PCP Requested Referral 03/24/2023 03/23/2024 1 1 Specialty Diagnoses / Procedures Referred By Contac t Referred To Contact CT IMAGING Diagnoses Lung nodules Procedures CT LUNG FOLLOWUP WO IVCON DIAGNOSTIC COMPUTED TOMOGRAPHY THORAX W/O CNTRST Ronnie Urban, DATABASE SOFTWARE TECHNICIAN.EMS DRIVER [id number] [facility] [place] [address] Referral ID Status Reason Start Date Expiration Date Visits Requested Visits Authorized [id number] Authorized Auto-Generat ed Referral 06/12/2023 07/11/2024 1 1 Specialty Diagnoses / Procedures Referred By Maritzaac t Referred To Contact CT IMAGING Diagnoses Former tobacco use Encounter for screening for lung cancer Procedures CT LUNG SCREEN WO IVCON COMPUTED TOMOGRAPHY THORAX LW DOSE LNG CA SCR C- Ronnie Urban, DATABASE SOFTWARE TECHNICIAN.EMS DRIVER [phone] [facility] [place] [address] Referral ID Status Reason Start Date Expiration Date Visits Requested Visits Authorized [id number] Authorized Auto-Generat ed Referral 10/21/2024 01/16/2025 1 1 Specialty Diagnoses / Procedures Referred By Contac t Referred To Contact Podiatry Diagnoses Closed nondisplaced fracture of fifth metatarsal bone of left foot, initial encounter Procedures CONSULT TO PODIATRY OFFICE/OUTPATIENT [facility] 60 MINUTES Wanda Nowak, DATABASE SOFTWARE TECHNICIAN.EMS DRIVER [address] [place] [address] Referral ID Status Reason Start Date Expiration Date Visits Requested Visits Authorized [id number] Authorized PCP Requested Referral 01/15/2025 1 1 Medications Administered Section Inactive Administered Medications - up to 3 most recent administrations Medication Order MAR Action Action Date Dose Rate Site acetaminophen 650 mg tab(s) (TYLENOL) 650 mg, ORAL, ONCE, 1 dose, On Mon12/08/21 at 1500, Give 30 minutes before infusion. No more than 4000 mg of acetaminophen should be given per day (FROM ALL SOURCES), If ordered PRN for pain, patient/guardian may elect to receive this medication for higher pain levels INSTEAD of the opioid, if preferred: N/A Given 12/08/2021 2:47 PM EDT 650 mg zoledronic rw-izekmozm-6.9NaCl 4 mg iv piggyback 100 mL (ZOMETA) 4 mg, INTRAVENOUS, Administer over 15 Minutes, ONCE, 1 dose, On Mon12/08/21 at 1500, Hazardous Potential Reproductive Risk Drug: Use appropriate PPE. New Bag/Syringe/Bottle 12/08/2021 2:50 PM EDT 4 mg Inactive Administered Medications - up to 3 most recent administrations Medication Order MAR Action Action Date Dose Rate Site zoledronic yy-gargegwr-7.9NaCl 4 mg iv piggyback 100 mL (ZOMETA) 4 mg, INTRAVENOUS, Administer over 15 Minutes, ONCE, 1 dose, On Mon06/15/22 at 1600, Hazardous Potential Reproductive Risk Drug: Use appropriate PPE. New Bag/Syringe/Bottle 06/15/2022 3:39 PM EDT 4 mg Inactive Administered Medications - up to 3 most recent administrations Medication Order MAR Action Action Date Dose Rate Site zoledronic ts-ntavplpb-3.9NaCl 4 mg iv piggyback 100 mL (ZOMETA) 4 mg, INTRAVENOUS, Administer over 15 Minutes, ONCE, 1 dose, On Mon11/29/22 at 1030, Hazardous Potential Reproductive Risk Drug: Use appropriate PPE. New Bag/Syringe/Bottle 11/29/2022 10:42 AM EDT 4 mg Additional Source Comments INFORMATION SOURCE (unrecogn ized section and content) DATE CREATED AUTHOR [facility] DATE CREATED AUTHOR AUTHOR'S ORGANIZ ATION 05/01/2021 [facility] DATE CREATED AUTHOR AUTHOR'S ORGANIZ ATION 05/19/2021 [facility] DATE CREATED AUTHOR AUTHOR'S ORGANIZ ATION 11/19/2021 [facility] DATE CREATED AUTHOR AUTHOR'S ORGANIZ ATION 10/25/2024 [facility] Source Comments (unrecognize d section and content) In the event this informatio n is protected by the Federal Confidentiality of Alcohol and Drug Abuse Patient Records regulations: The Federal rules restrict any use of the information to criminally investigate or prosecute any alcohol or drug abuse patient.[facility] the event this information is protected by the Federal Confidentiality of Alcohol and Drug Abuse Patient Records regulations: The Federal rules restrict any use of the information to criminally investigate or prosecute any alcohol or drug abuse patient.[facility]In the event this information is protected by the Federal Confidentiality of Alcohol and Drug Abuse Patient Records regulations: The Federal rules restrict any use of the information to criminally investigate or prosecute any alcohol or drug abuse patient.[facility]In the event this information is protected by the Federal Confidentiality of Alcohol and Drug Abuse Patient Records regulations: The Federal rules restrict any use of the information to criminally investigate or prosecute any alcohol or drug abuse patient.[facility]In the event this information is protected by the Federal Confidentiality of Alcohol and Drug Abuse Patient Records regulations: The Federal rules restrict any use of the information to criminally investigate or prosecute any alcohol or drug abuse patient.[facility] the event this information is protected by the Federal Confidentiality of Alcohol and Drug Abuse Patient Records regulations: The Federal rules restrict any use of the information to criminally investigate or prosecute any alcohol or drug abuse patient.[facility] the event this information is protected by the Federal Confidentiality of Alcohol and Drug Abuse Patient Records regulations: The Federal rules restrict any use of the information to criminally investigate or prosecute any alcohol or drug abuse patient.[facility] HospitalIn the event this information is protected by the Federal Confidentiality of Alcohol and Drug Abuse Patient Records regulations: The Federal rules restrict any use of the information to criminally investigate or prosecute any alcohol or drug abuse patient.[facility] the event this information is protected by the Federal Confidentiality of Alcohol and Drug Abuse Patient Records regulations: The Federal rules restrict any use of the information to criminally investigate or prosecute any alcohol or drug abuse patient.[facility]In the event this information is protected by the Federal Confidentiality of Alcohol and Drug Abuse Patient Records regulations: The Federal rules restrict any use of the information to criminally investigate or prosecute any alcohol or drug abuse patient.[facility] HospitalIn the event this information is protected by the Federal Confidentiality of Alcohol and Drug Abuse Patient Records regulations: The Federal rules restrict any use of the information to criminally investigate or prosecute any alcohol or drug abuse patient.[facility]In the event this information is protected by the Federal Confidentiality of Alcohol and Drug Abuse Patient Records regulations: The Federal rules restrict any use of the information to criminally investigate or prosecute any alcohol or drug abuse patient.[facility]In the event this information is protected by the Federal Confidentiality of Alcohol and Drug Abuse Patient Records regulations: The Federal rules restrict any use of the information to criminally investigate or prosecute any alcohol or drug abuse patient.[facility] HospitalIn the event this information is protected by the Federal Confidentiality of Alcohol and Drug Abuse Patient Records regulations: The Federal rules restrict any use of the information to criminally investigate or prosecute any alcohol or drug abuse patient.[facility]In the event this information is protected by the Federal Confidentiality of Alcohol and Drug Abuse Patient Records regulations: The Federal rules restrict any use of the information to criminally investigate or prosecute any alcohol or drug abuse patient.[facility] HospitalIn the event this information is protected by the Federal Confidentiality of Alcohol and Drug Abuse Patient Records regulations: The Federal rules restrict any use of the information to criminally investigate or prosecute any alcohol or drug abuse patient.[facility] HospitalIn the event this information is protected by the Federal Confidentiality of Alcohol and Drug Abuse Patient Records regulations: The Federal rules restrict any use of the information to criminally investigate or prosecute any alcohol or drug abuse patient.[facility] HospitalIn the event this information is protected by the Federal Confidentiality of Alcohol and Drug Abuse Patient Records regulations: The Federal rules restrict any use of the information to criminally investigate or prosecute any alcohol or drug abuse patient.[facility] HospitalIn the event this information is protected by the Federal Confidentiality of Alcohol and Drug Abuse Patient Records regulations: The Federal rules restrict any use of the information to criminally investigate or prosecute any alcohol or drug abuse patient.[facility] HospitalIn the event this information is protected by the Federal Confidentiality of Alcohol and Drug Abuse Patient Records regulations: The Federal rules restrict any use of the information to criminally investigate or prosecute any alcohol or drug abuse patient.[facility] HospitalIn the event this information is protected by the Federal Confidentiality of Alcohol and Drug Abuse Patient Records regulations: The Federal rules restrict any use of the information to criminally investigate or prosecute any alcohol or drug abuse patient.[facility] HospitalIn the event this information is protected by the Federal Confidentiality of Alcohol and Drug Abuse Patient Records regulations: The Federal rules restrict any use of the information to criminally investigate or prosecute any alcohol or drug abuse patient.[facility] HospitalIn the event this information is protected by the Federal Confidentiality of Alcohol and Drug Abuse Patient Records regulations: The Federal rules restrict any use of the information to criminally investigate or prosecute any alcohol or drug abuse patient.[facility] HospitalIn the event this information is protected by the Federal Confidentiality of Alcohol and Drug Abuse Patient Records regulations: The Federal rules restrict any use of the information to criminally investigate or prosecute any alcohol or drug abuse patient.[facility] HospitalIn the event this information is protected by the Federal Confidentiality of Alcohol and Drug Abuse Patient Records regulations: The Federal rules restrict any use of the information to criminally investigate or prosecute any alcohol or drug abuse patient.[facility] HospitalIn the event this information is protected by the Federal Confidentiality of Alcohol and Drug Abuse Patient Records regulations: The Federal rules restrict any use of the information to criminally investigate or prosecute any alcohol or drug abuse patient.[facility] HospitalIn the event this information is protected by the Federal Confidentiality of Alcohol and Drug Abuse Patient Records regulations: The Federal rules restrict any use of the information to criminally investigate or prosecute any alcohol or drug abuse patient.[facility] HospitalIn the event this information is protected by the Federal Confidentiality of Alcohol and Drug Abuse Patient Records regulations: The Federal rules restrict any use of the information to criminally investigate or prosecute any alcohol or drug abuse patient.[facility] HospitalIn the event this information is protected by the Federal Confidentiality of Alcohol and Drug Abuse Patient Records regulations: The Federal rules restrict any use of the information to criminally investigate or prosecute any alcohol or drug abuse patient.[facility] HospitalIn the event this information is protected by the Federal Confidentiality of Alcohol and Drug Abuse Patient Records regulations: The Federal rules restrict any use of the information to criminally investigate or prosecute any alcohol or drug abuse patient.[facility] HospitalIn the event this information is protected by the Federal Confidentiality of Alcohol and Drug Abuse Patient Records regulations: The Federal rules restrict any use of the information to criminally investigate or prosecute any alcohol or drug abuse patient.[facility] HospitalIn the event this information is protected by the Federal Confidentiality of Alcohol and Drug Abuse Patient Records regulations: The Federal rules restrict any use of the information to criminally investigate or prosecute any alcohol or drug abuse patient.[facility] HospitalIn the event this information is protected by the Federal Confidentiality of Alcohol and Drug Abuse Patient Records regulations: The Federal rules restrict any use of the information to criminally investigate or prosecute any alcohol or drug abuse patient.[facility] HospitalIn the event this information is protected by the Federal Confidentiality of Alcohol and Drug Abuse Patient Records regulations: The Federal rules restrict any use of the information to criminally investigate or prosecute any alcohol or drug abuse patient.[facility] HospitalIn the event this information is protected by the Federal Confidentiality of Alcohol and Drug Abuse Patient Records regulations: The Federal rules restrict any use of the information to criminally investigate or prosecute any alcohol or drug abuse patient.[facility] HospitalIn the event this information is protected by the Federal Confidentiality of Alcohol and Drug Abuse Patient Records regulations: The Federal rules restrict any use of the information to criminally investigate or prosecute any alcohol or drug abuse patient.[facility] HospitalIn the event this information is protected by the Federal Confidentiality of Alcohol and Drug Abuse Patient Records regulations: The Federal rules restrict any use of the information to criminally investigate or prosecute any alcohol or drug abuse patient.[facility] HospitalIn the event this information is protected by the Federal Confidentiality of Alcohol and Drug Abuse Patient Records regulations: The Federal rules restrict any use of the information to criminally investigate or prosecute any alcohol or drug abuse patient.[facility] HospitalIn the event this information is protected by the Federal Confidentiality of Alcohol and Drug Abuse Patient Records regulations: The Federal rules restrict any use of the information to criminally investigate or prosecute any alcohol or drug abuse patient.[facility] HospitalIn the event this information is protected by the Federal Confidentiality of Alcohol and Drug Abuse Patient Records regulations: The Federal rules restrict any use of the information to criminally investigate or prosecute any alcohol or drug abuse patient.[facility] HospitalIn the event this information is protected by the Federal Confidentiality of Alcohol and Drug Abuse Patient Records regulations: The Federal rules restrict any use of the information to criminally investigate or prosecute any alcohol or drug abuse patient.[facility] HospitalIn the event this information is protected by the Federal Confidentiality of Alcohol and Drug Abuse Patient Records regulations: The Federal rules restrict any use of the information to criminally investigate or prosecute any alcohol or drug abuse patient.[facility] HospitalIn the event this information is protected by the Federal Confidentiality of Alcohol and Drug Abuse Patient Records regulations: The Federal rules restrict any use of the information to criminally investigate or prosecute any alcohol or drug abuse patient.[facility] HospitalIn the event this information is protected by the Federal Confidentiality of Alcohol and Drug Abuse Patient Records regulations: The Federal rules restrict any use of the information to criminally investigate or prosecute any alcohol or drug abuse patient.[facility] HospitalIn the event this information is protected by the Federal Confidentiality of Alcohol and Drug Abuse Patient Records regulations: The Federal rules restrict any use of the information to criminally investigate or prosecute any alcohol or drug abuse patient.[facility] HospitalIn the event this information is protected by the Federal Confidentiality of Alcohol and Drug Abuse Patient Records regulations: The Federal rules restrict any use of the information to criminally investigate or prosecute any alcohol or drug abuse patient.[facility] HospitalIn the event this information is protected by the Federal Confidentiality of Alcohol and Drug Abuse Patient Records regulations: The Federal rules restrict any use of the information to criminally investigate or prosecute any alcohol or drug abuse patient.[facility] HospitalIn the event this information is protected by the Federal Confidentiality of Alcohol and Drug Abuse Patient Records regulations: The Federal rules restrict any use of the information to criminally investigate or prosecute any alcohol or drug abuse patient.[facility] HospitalIn the event this information is protected by the Federal Confidentiality of Alcohol and Drug Abuse Patient Records regulations: The Federal rules restrict any use of the information to criminally investigate or prosecute any alcohol or drug abuse patient.[facility] HospitalIn the event this information is protected by the Federal Confidentiality of Alcohol and Drug Abuse Patient Records regulations: The Federal rules restrict any use of the information to criminally investigate or prosecute any alcohol or drug abuse patient.[facility] HospitalIn the event this information is protected by the Federal Confidentiality of Alcohol and Drug Abuse Patient Records regulations: The Federal rules restrict any use of the information to criminally investigate or prosecute any alcohol or drug abuse patient.[facility] HospitalIn the event this information is protected by the Federal Confidentiality of Alcohol and Drug Abuse Patient Records regulations: The Federal rules restrict any use of the information to criminally investigate or prosecute any alcohol or drug abuse patient.[facility] HospitalIn the event this information is protected by the Federal Confidentiality of Alcohol and Drug Abuse Patient Records regulations: The Federal rules restrict any use of the information to criminally investigate or prosecute any alcohol or drug abuse patient.[facility] HospitalIn the event this information is protected by the Federal Confidentiality of Alcohol and Drug Abuse Patient Records regulations: The Federal rules restrict any use of the information to criminally investigate or prosecute any alcohol or drug abuse patient.[facility] HospitalIn the event this information is protected by the Federal Confidentiality of Alcohol and Drug Abuse Patient Records regulations: The Federal rules restrict any use of the information to criminally investigate or prosecute any alcohol or drug abuse patient.[facility] the event this information is protected by the Federal Confidentiality of Alcohol and Drug Abuse Patient Records regulations: The Federal rules restrict any use of the information to criminally investigate or prosecute any alcohol or drug abuse patient.[facility] HospitalIn the event this information is protected by the Federal Confidentiality of Alcohol and Drug Abuse Patient Records regulations: The Federal rules restrict any use of the information to criminally investigate or prosecute any alcohol or drug abuse patient.[facility] HospitalIn the event this information is protected by the Federal Confidentiality of Alcohol and Drug Abuse Patient Records regulations: The Federal rules restrict any use of the information to criminally investigate or prosecute any alcohol or drug abuse patient.[facility] the event this information is protected by the Federal Confidentiality of Alcohol and Drug Abuse Patient Records regulations: The Federal rules restrict any use of the information to criminally investigate or prosecute any alcohol or drug abuse patient.[facility] HospitalIn the event this information is protected by the Federal Confidentiality of Alcohol and Drug Abuse Patient Records regulations: The Federal rules restrict any use of the information to criminally investigate or prosecute any alcohol or drug abuse patient.[facility] HospitalIn the event this information is protected by the Federal Confidentiality of Alcohol and Drug Abuse Patient Records regulations: The Federal rules restrict any use of the information to criminally investigate or prosecute any alcohol or drug abuse patient.[facility] HospitalIn the event this information is protected by the Federal Confidentiality of Alcohol and Drug Abuse Patient Records regulations: The Federal rules restrict any use of the information to criminally investigate or prosecute any alcohol or drug abuse patient.[facility] HospitalIn the event this information is protected by the Federal Confidentiality of Alcohol and Drug Abuse Patient Records regulations: The Federal rules restrict any use of the information to criminally investigate or prosecute any alcohol or drug abuse patient.[facility] HospitalIn the event this information is protected by the Federal Confidentiality of Alcohol and Drug Abuse Patient Records regulations: The Federal rules restrict any use of the information to criminally investigate or prosecute any alcohol or drug abuse patient.[facility] HospitalIn the event this information is protected by the Federal Confidentiality of Alcohol and Drug Abuse Patient Records regulations: The Federal rules restrict any use of the information to criminally investigate or prosecute any alcohol or drug abuse patient.[facility] HospitalIn the event this information is protected by the Federal Confidentiality of Alcohol and Drug Abuse Patient Records regulations: The Federal rules restrict any use of the information to criminally investigate or prosecute any alcohol or drug abuse patient.[facility] HospitalIn the event this information is protected by the Federal Confidentiality of Alcohol and Drug Abuse Patient Records regulations: The Federal rules restrict any use of the information to criminally investigate or prosecute any alcohol or drug abuse patient.[facility] HospitalIn the event this information is protected by the Federal Confidentiality of Alcohol and Drug Abuse Patient Records regulations: The Federal rules restrict any use of the information to criminally investigate or prosecute any alcohol or drug abuse patient.[facility] HospitalIn the event this information is protected by the Federal Confidentiality of Alcohol and Drug Abuse Patient Records regulations: The Federal rules restrict any use of the information to criminally investigate or prosecute any alcohol or drug abuse patient.[facility] HospitalIn the event this information is protected by the Federal Confidentiality of Alcohol and Drug Abuse Patient Records regulations: The Federal rules restrict any use of the information to criminally investigate or prosecute any alcohol or drug abuse patient.[facility] HospitalIn the event this information is protected by the Federal Confidentiality of Alcohol and Drug Abuse Patient Records regulations: The Federal rules restrict any use of the information to criminally investigate or prosecute any alcohol or drug abuse patient.[facility] [place] [facility] HospitalIn the event this information is protected by the Federal Confidentiality of Alcohol and Drug Abuse Patient Records regulations: The Federal rules restrict any use of the information to criminally investigate or prosecute any alcohol or drug abuse patient.[facility] [place] [facility] HospitalIn the event this information is protected by the Federal Confidentiality of Alcohol and Drug Abuse Patient Records regulations: The Federal rules restrict any use of the information to criminally investigate or prosecute any alcohol or drug abuse patient.[facility] [place] [facility] HospitalIn the event this information is protected by the Federal Confidentiality of Alcohol and Drug Abuse Patient Records regulations: The Federal rules restrict any use of the information to criminally investigate or prosecute any alcohol or drug abuse patient.[facility] [place] [facility] HospitalIn the event this information is protected by the Federal Confidentiality of Alcohol and Drug Abuse Patient Records regulations: The Federal rules restrict any use of the information to criminally investigate or prosecute any alcohol or drug abuse patient.[facility] [place] [facility] HospitalIn the event this information is protected by the Federal Confidentiality of Alcohol and Drug Abuse Patient Records regulations: The Federal rules restrict any use of the information to criminally investigate or prosecute any alcohol or drug abuse patient.[facility] [place] [facility] HospitalIn the event this information is protected by the Federal Confidentiality of Alcohol and Drug Abuse Patient Records regulations: The Federal rules restrict any use of the information to criminally investigate or prosecute any alcohol or drug abuse patient.[facility] [place] [facility] HospitalIn the event this information is protected by the Federal Confidentiality of Alcohol and Drug Abuse Patient Records regulations: The Federal rules restrict any use of the information to criminally investigate or prosecute any alcohol or drug abuse patient.[facility] [place] [facility] HospitalIn the event this information is protected by the Federal Confidentiality of Alcohol and Drug Abuse Patient Records regulations: The Federal rules restrict any use of the information to criminally investigate or prosecute any alcohol or drug abuse patient.[facility] [place] [facility] HospitalIn the event this information is protected by the Federal Confidentiality of Alcohol and Drug Abuse Patient Records regulations: The Federal rules restrict any use of the information to criminally investigate or prosecute any alcohol or drug abuse patient.[facility] [place] [facility] HospitalIn the event this information is protected by the Federal Confidentiality of Alcohol and Drug Abuse Patient Records regulations: The Federal rules restrict any use of the information to criminally investigate or prosecute any alcohol or drug abuse patient.[facility] [place] [facility] HospitalIn the event this information is protected by the Federal Confidentiality of Alcohol and Drug Abuse Patient Records regulations: The Federal rules restrict any use of the information to criminally investigate or prosecute any alcohol or drug abuse patient.[facility] [place] [facility] HospitalIn the event this information is protected by the Federal Confidentiality of Alcohol and Drug Abuse Patient Records regulations: The Federal rules restrict any use of the information to criminally investigate or prosecute any alcohol or drug abuse patient.[facility] [place] [facility] HospitalIn the event this information is protected by the Federal Confidentiality of Alcohol and Drug Abuse Patient Records regulations: The Federal rules restrict any use of the information to criminally investigate or prosecute any alcohol or drug abuse patient.[facility] [place] [facility] HospitalIn the event this information is protected by the Federal Confidentiality of Alcohol and Drug Abuse Patient Records regulations: The Federal rules restrict any use of the information to criminally investigate or prosecute any alcohol or drug abuse patient.[facility] [place] [facility] HospitalIn the event this information is protected by the Federal Confidentiality of Alcohol and Drug Abuse Patient Records regulations: The Federal rules restrict any use of the information to criminally investigate or prosecute any alcohol or drug abuse patient.[facility] [place] [facility] HospitalIn the event this information is protected by the Federal Confidentiality of Alcohol and Drug Abuse Patient Records regulations: The Federal rules restrict any use of the information to criminally investigate or prosecute any alcohol or drug abuse patient.[facility] [place] [facility] HospitalIn the event this information is protected by the Federal Confidentiality of Alcohol and Drug Abuse Patient Records regulations: The Federal rules restrict any use of the information to criminally investigate or prosecute any alcohol or drug abuse patient.[facility] [place] [facility] HospitalIn the event this information is protected by the Federal Confidentiality of Alcohol and Drug Abuse Patient Records regulations: The Federal rules restrict any use of the information to criminally investigate or prosecute any alcohol or drug abuse patient.[facility] [place] [facility] HospitalIn the event this information is protected by the Federal Confidentiality of Alcohol and Drug Abuse Patient Records regulations: The Federal rules restrict any use of the information to criminally investigate or prosecute any alcohol or drug abuse patient.[facility] [place] [facility] HospitalIn the event this information is protected by the Federal Confidentiality of Alcohol and Drug Abuse Patient Records regulations: The Federal rules restrict any use of the information to criminally investigate or prosecute any alcohol or drug abuse patient.[facility] [place] [facility] HospitalIn the event this information is protected by the Federal Confidentiality of Alcohol and Drug Abuse Patient Records regulations: The Federal rules restrict any use of the information to criminally investigate or prosecute any alcohol or drug abuse patient.[facility] [place] [facility] HospitalIn the event this information is protected by the Federal Confidentiality of Alcohol and Drug Abuse Patient Records regulations: The Federal rules restrict any use of the information to criminally investigate or prosecute any alcohol or drug abuse patient.[facility] [place] [facility] HospitalIn the event this information is protected by the Federal Confidentiality of Alcohol and Drug Abuse Patient Records regulations: The Federal rules restrict any use of the information to criminally investigate or prosecute any alcohol or drug abuse patient.[facility] [place] [facility] HospitalIn the event this information is protected by the Federal Confidentiality of Alcohol and Drug Abuse Patient Records regulations: The Federal rules restrict any use of the information to criminally investigate or prosecute any alcohol or drug abuse patient.[facility] [place] [facility] HospitalIn the event this information is protected by the Federal Confidentiality of Alcohol and Drug Abuse Patient Records regulations: The Federal rules restrict any use of the information to criminally investigate or prosecute any alcohol or drug abuse patient.[facility] [place] [facility] HospitalIn the event this information is protected by the Federal Confidentiality of Alcohol and Drug Abuse Patient Records regulations: The Federal rules restrict any use of the information to criminally investigate or prosecute any alcohol or drug abuse patient.[facility] [place] [facility] HospitalIn the event this information is protected by the Federal Confidentiality of Alcohol and Drug Abuse Patient Records regulations: The Federal rules restrict any use of the information to criminally investigate or prosecute any alcohol or drug abuse patient.[facility] [place] [facility] HospitalIn the event this information is protected by the Federal Confidentiality of Alcohol and Drug Abuse Patient Records regulations: The Federal rules restrict any use of the information to criminally investigate or prosecute any alcohol or drug abuse patient.[facility] [place] [facility] HospitalIn the event this information is protected by the Federal Confidentiality of Alcohol and Drug Abuse Patient Records regulations: The Federal rules restrict any use of the information to criminally investigate or prosecute any alcohol or drug abuse patient.[facility] [place] [facility] HospitalIn the event this information is protected by the Federal Confidentiality of Alcohol and Drug Abuse Patient Records regulations: The Federal rules restrict any use of the information to criminally investigate or prosecute any alcohol or drug abuse patient.[facility] [place] [facility] HospitalIn the event this information is protected by the Federal Confidentiality of Alcohol and Drug Abuse Patient Records regulations: The Federal rules restrict any use of the information to criminally investigate or prosecute any alcohol or drug abuse patient.[facility] [place] [facility] HospitalIn the event this information is protected by the Federal Confidentiality of Alcohol and Drug Abuse Patient Records regulations: The Federal rules restrict any use of the information to criminally investigate or prosecute any alcohol or drug abuse patient.[facility] [place] [facility] HospitalIn the event this information is protected by the Federal Confidentiality of Alcohol and Drug Abuse Patient Records regulations: The Federal rules restrict any use of the information to criminally investigate or prosecute any alcohol or drug abuse patient.[facility] [place] [facility] HospitalIn the event this information is protected by the Federal Confidentiality of Alcohol and Drug Abuse Patient Records regulations: The Federal rules restrict any use of the information to criminally investigate or prosecute any alcohol or drug abuse patient.[facility] the event this information is protected by the Federal Confidentiality of Alcohol and Drug Abuse Patient Records regulations: The Federal rules restrict any use of the information to criminally investigate or prosecute any alcohol or drug abuse patient.[facility] [place] [facility] HospitalIn the event this information is protected by the Federal Confidentiality of Alcohol and Drug Abuse Patient Records regulations: The Federal rules restrict any use of the information to criminally investigate or prosecute any alcohol or drug abuse patient.[facility] [place] [facility] HospitalIn the event this information is protected by the Federal Confidentiality of Alcohol and Drug Abuse Patient Records regulations: The Federal rules restrict any use of the information to criminally investigate or prosecute any alcohol or drug abuse patient.[facility]In the event this information is protected by the Federal Confidentiality of Alcohol and Drug Abuse Patient Records regulations: The Federal rules restrict any use of the information to criminally investigate or prosecute any alcohol or drug abuse patient.[facility] [place] [facility] HospitalIn the event this information is protected by the Federal Confidentiality of Alcohol and Drug Abuse Patient Records regulations: The Federal rules restrict any use of the information to criminally investigate or prosecute any alcohol or drug abuse patient.[facility] [place] [facility] HospitalIn the event this information is protected by the Federal Confidentiality of Alcohol and Drug Abuse Patient Records regulations: The Federal rules restrict any use of the information to criminally investigate or prosecute any alcohol or drug abuse patient.[facility] [place] [facility] HospitalIn the event this information is protected by the Federal Confidentiality of Alcohol and Drug Abuse Patient Records regulations: The Federal rules restrict any use of the information to criminally investigate or prosecute any alcohol or drug abuse patient.[facility] [place] [facility] HospitalIn the event this information is protected by the Federal Confidentiality of Alcohol and Drug Abuse Patient Records regulations: The Federal rules restrict any use of the information to criminally investigate or prosecute any alcohol or drug abuse patient.[facility] [place] [facility] HospitalIn the event this information is protected by the Federal Confidentiality of Alcohol and Drug Abuse Patient Records regulations: The Federal rules restrict any use of the information to criminally investigate or prosecute any alcohol or drug abuse patient.[facility] [place] [facility] HospitalIn the event this information is protected by the Federal Confidentiality of Alcohol and Drug Abuse Patient Records regulations: The Federal rules restrict any use of the information to criminally investigate or prosecute any alcohol or drug abuse patient.[facility] Reason for Visit (unrecogniz ed section and content) Reason Comments Nodule Specialty Diagnoses / Procedures Referred By Dewayne t Referred To Contact CT IMAGING Diagnoses Lung nodules Procedures CT LUNG FOLLOWUP WO IVCON DIAGNOSTIC COMPUTED TOMOGRAPHY THORAX W/O CNTRST Ronnie Urban, REG[employer] DRIVER [address] [place] [address] Ct Imaging [facility]95 Referral ID Status Reason Start Date Expiration Date V isits Requested Visits Authorized [id number] Closed Auto-Generate d Referral 06/12/2023 07/11/2024 1 1 Reason Comments Radiology Mammogram Specialty Diagnoses / Procedures Referred By Dewayne bull Referred To Contact Radiology / [facility] Diagnoses Personal history of breast cancer Breast cancer screening, high risk patient Personal history of breast cancer [Z85.3] Breast cancer screening, high risk patient [Z12.39] Procedures SCREENING MAMMOGRAPHY BI 2-VIEW BREAST INC CAD MAMMOGRAM DIAGNOSTIC Kelsie Mendoza PA-C [address] [place] [address] Radio Mammo [facility] [address] [place] [address] Referral ID Status Reason Start Date Expiration Date Visits Re quested Visits Authorized [id number] Closed 10/20/2021 02/19/2022 1 1 Reason Comments Established Patient Specialty Diagnoses / Procedures Referred By Dewayne bull Referred To Contact Hematology/Oncology / HEMATOLOGY/ONCOLOGY Diagnoses Malignant neoplasm of upper-outer quadrant of left breast in female, 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) CBC/CMP/VIT D25/ 10WK OV/ ON FEMARA & VERZENIO* Procedures OFFICE/OUTPATIENT ESTABLISHED MOD MDM 30-39 MIN EST SIMPLE Abiola Rivera MD [address] [place] [address] Abiola Rivera MD [address] [place] [address] Referral ID Status Reason Start Date Expiration Date Visits Re quested Visits Authorized [id number] Closed 11/23/2021 02/19/2022 1 1 Specialty Diagnoses / Procedures Referred By Dewayne bull Referred To Contact General Surgery / GENERAL SURGERY Diagnoses Breast cancer metastasized to axillary lymph node, left (HCC) post op DOS 09/02/21 Procedures OFFICE/OUTPATIENT ESTABLISHED MOD MDM 30-39 [place] [address] [place] [address] Kelsie Mendoza PA-C [address] [place] [address] Referral ID Status Reason Start Date Expiration Date Visits Re quested Visits Authorized [id number] Closed 07/20/2021 07/20/2022 4 4 Reason Comments Established Patient seroma check Referral ID Status Reason Start Date Expiration Date V isits Requested Visits Authorized [id number] Authorized 07/20/2021 07/20/2022 4 4 Reason Comments Consult Specialty Diagnoses / Procedures Referred By Contac t Referred To Contact Radiation Oncology / RADIATION ONCOLOGY Diagnoses Follow-up exam CONSULT Procedures OFFICE/OUTPATIENT ESTABLISHED MOD MDM 30-39 MIN OFFICE/OUTPATIENT NEW MODERATE MDM 45-59 MINUTES NEW/CON NEVER TREATED@[facility] Abiola Rivera MD [address] [place] [address] Cris Simpson MD, MD [address] [facility] [place] [address] Referral ID Status Reason Start Date Expiration Date Visits Re quested Visits Authorized [id number] Closed 09/13/2021 02/19/2022 1 1 Reason Comments Post Op drain removal Specialty Diagnoses / Procedures Referred By Contac t Referred To Contact Hematology/Oncology / HEMATOLOGY/ONCOLOGY Diagnoses Breast cancer (HCC) NO LABS PER PRITESH/COUNCIL MEMBER/BREAST CANCER/REF TAMMIE DE LA TORRE* breast cancer consult Procedures NEW PATIENT VISIT LEVEL 5 NEW PATIENT Tammie De La Torre [address] [place] [address] Abiola Rivera MD [address] [place], [place] [address] [place] [address] Referral ID Status Reason Start Date Expiration Date V isits Requested Visits Authorized [id number] Authorized 10/26/2020 10/26/2021 99 99 Specialty Diagnoses / Procedures Referred By Contac t Referred To Contact MR IMAGING Diagnoses Malignant neoplasm of upper-outer quadrant of left breast in female, 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) Procedures MRI BREAST WO/W IVCON BILAT MRI BREAST WITHOUT&WITH CONTRAST W/CAD BILATERAL Abiola Rivera MD [address] [facility] [place] [address] Mr Imaging Referral ID Status Reason Start Date Expiration Date V isits Requested Visits Authorized [id number] Closed Auto-Generat ed Referral Clearance Not Met - Admin/Chairm an/Director Advise to Postpone/Res chedule or Not Proceed 05/14/2021 02/19/2022 1 1 Reason Comments Surgery Questions 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 Comments 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 - Other Reason Comments Breast Problem Reason Comments Breast Problem Specialty Diagnoses / Procedures Referred By Dewayne bull Referred To Contact MR IMAGING Diagnoses Malignant neoplasm of upper-outer quadrant of left breast in female, estrogen receptor positive (HCC) Procedures MRI BREAST BX WO/W IVCON LT BX BREAST W/DEVICE 1ST LESION MAGNETIC RES GUID Stevo Gregory MD [address] [place] [address] Mr Imaging Referral ID Status Reason Start Date Expiration Date V isits Requested Visits Authorized [id number] Closed Auto-Generate d Referral 06/17/2021 06/17/2022 1 1 Reason Comments Orders Reason Comments New Patient left breast cancer Specialty Diagnoses / Procedures Referred By Dewayne bull Referred To Contact General Surgery / GENERAL SURGERY Diagnoses PORT CONSULT-NEEDS REPLACED WAS DONE BY DR. DE LA TORRE Procedures NEW PATIENT VISIT LEVEL 5 NEW DDI PATIENT Abiola Rivera MD [address] [place] [address] Stevo Gregory MD [address] [place] [address] Referral ID Status Reason Start Date Expiration Date V isits Requested Visits Authorized [id number] Authorized 01/07/2021 01/07/2022 99 99 Reason Comments Social Work Services Reason Comments Patient Update Reason Comments PreOp Call Reason Comments Patient Update Appointment Reason Comments Post Op Follow Up Reason Comments Insurance denial Reason Onset Date Comments Transition Of Care 09/03/2021 [facility] Hospital Discharge 09/02/21 Reason Comments 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 - Other Patient Update Reason Comments Post Op Specialty Diagnoses / Procedures Referred By Contac t Referred To Contact Hematology/Oncology / HEMATOLOGY/ONCOLOGY Diagnoses Postoperative follow-up POST OP FOLLOW UP* Procedures OFFICE/OUTPATIENT ESTABLISHED [facility] 30-39 MIN EST SIMPLE Abiola Rivera MD [address] [place] [address] Abiola Rivera MD [address] [place] [address] Referral ID Status Reason Start Date Expiration Date Visits Re quested Visits Authorized [id number] Closed 09/16/2021 02/19/2022 1 1 Reason Comments Patient Update navigation Reason Comments Patient Update Orders Reason Comments Patient Education Reason Onset Date Comments Simulation Request Form 10/13/2021 Reason Comments Radiotherapy On-treatment Visit Specialty Diagnoses / Procedures Referred By Contac t Referred To Contact Radiation Oncology / RADIATION ONCOLOGY Diagnoses Malignant neoplasm of upper-outer quadrant of left breast in female, estrogen receptor positive (HCC) Location: W-ON TREATMENT VISIT Activity: ON TREATMENT VISIT Procedures OFFICE/OUTPATIENT ESTABLISHED [facility] 30-39 MIN ON TREATMENT VISIT SelfMD Calvin Daesung, MD, [address] [place] [address] Referral ID Status Reason Start Date Expiration Date Visits Re quested Visits Authorized [id number] Closed 10/19/2021 02/19/2022 1 1 Specialty Diagnoses / Procedures Referred By Contac t Referred To Contact Radiation Oncology / RADIATION ONCOLOGY Diagnoses Follow-up exam Location: W-ON TREATMENT VISIT Activity: ON TREATMENT VISIT Procedures OFFICE/OUTPATIENT ESTABLISHED [facility] 30-39 MIN ON TREATMENT VISIT SelfMD Calvin Daesung, MD, [address] [place] [address] Referral ID Status Reason Start Date Expiration Date Visits Re quested Visits Authorized [id number] Closed 10/26/2021 02/19/2022 1 1 Reason Comments Results Ki-67 stain10% Reason Comments Appointment Specialty Diagnoses / Procedures Referred By Contac t Referred To Contact Radiation Oncology / RADIATION ONCOLOGY Diagnoses Location: W-ON TREATMENT VISIT Activity: ON TREATMENT VISIT Procedures ON TREATMENT VISIT Self Cris Simpson MD, [address] [place] [address] Referral ID Status Reason Start Date Expiration Date Visits Re quested Visits Authorized [id number] Closed 11/09/2021 02/19/2022 1 1 Specialty Diagnoses / Procedures Referred By Contac t Referred To Contact Radiology / RADIO BONE DENSITY [facility] Diagnoses Malignant neoplasm of upper-outer quadrant of left breast in female, estrogen receptor positive (HCC) Vitamin D deficiency Malignant neoplasm of upper-outer quadrant of left breast in female, estrogen re... Vitamin D deficiency [E55.9] Procedures DXA BONE DENSITY STUDY / SITES AXIAL SKEL BONE DENSITY ADULT 225 Abiola Rivera MD [address] [place] [address] Radio Bone Density [facility] [address] [place] [address] Referral ID Status Reason Start Date Expiration Date Visits Re quested Visits Authorized [id number] Closed 10/18/2021 02/19/2022 1 1 Reason Comments Breast Cancer Reason Comments Non-Chemotherapy Treatment Specialty Diagnoses / Procedures Referred By Contac t Referred To Contact Diagnoses Breast cancer metastasized to axillary lymph node, left (HCC) Procedures INJECTION, ZOLEDRONIC ACID, 1 MG Abiola Rivera MD [address] [place] [address] Fazal [facility] [address] [address] Referral ID Status Reason Start Date Expiration Date V isits Requested Visits Authorized [id number] Authorized 11/30/2021 12/01/2022 99 99 Reason Comments Recheck Specialty Diagnoses / Procedures Referred By Contac t Referred To Contact Radiation Oncology / RADIATION ONCOLOGY Diagnoses Follow-up examination 4WK PHONE CALL-NO CHARGE Procedures OFFICE/OUTPATIENT ESTABLISHED MOD [facility] 30-39 MIN PROVIDER SPECIALTY PHONE CALL Self Cris Simpson MD, [address] [address] Referral ID Status Reason Start Date Expiration Date Visits Re quested Visits Authorized [id number] Closed 12/27/2021 02/19/2022 1 1 Reason Onset Date Comments Refill Request 03/18/2022 Patient Update 03/18/2022 Referral ID Status Reason Start Date Expiration Date V isits Requested Visits Authorized [id number] Authorized 11/30/2021 02/19/2023 99 99 Reason Comments Established Patient Reason Comments Trauma Left elbow injury, f ell and landed directly on it happened today Reason Comments Symptoms Reason Comments AVS 06/14/22 Reason Comments Research Reason Comments Patient Question Specialty Diagnoses / Procedures Referred By Contac t Referred To Contact Diagnoses Breast cancer metastasized to axillary lymph node, left (HCC) Procedures INJECTION, ZOLEDRONIC ACID, 1 MG Abiola Rivera MD [address] [place] [address] Fazal [facility] [address] [place] [address] Reason Comments Radiology US Specialty Diagnoses / Procedures Referred By Contac t Referred To Contact BR IMAGING Diagnoses Malignant neoplasm of upper-outer quadrant of left breast in female, estrogen receptor positive (HCC) Axillary pain, left Procedures US BREAST LTD LEFT US BREAST UNI REAL [place] [address] [place] [address] Br Imaging [address] [place] [address] Referral ID Status Reason Start Date Expiration Date V isits Requested Visits Authorized [id number] Closed Auto-Generate d Referral 10/06/2022 11/05/2023 1 1 Reason Comments Medicare Wellness Exam Reason Comments Results Reason Comments New Patient LCS Reason Comments 04/11/2023 COLON/EGD ASC Reason Comments Medication Problem Reason Onset Date Comments Refill Request 04/18/2023 Reason Comments Consult Referral ID Status Reason Start Date Expiration Date V isits Requested Visits Authorized [id number] Closed Auto-Generate d Referral 03/21/2023 04/19/2024 [address] Specialty Diagnoses / Procedures Referred By Contac t Referred To Contact CT IMAGING Diagnoses Lung nodules Procedures CT LUNG FOLLOWUP WO IVCON DIAGNOSTIC COMPUTED TOMOGRAPHY THORAX W/O CNTRST Ronnie Urban APRN.EMS DRIVER [address] [place] [address] Ct Imaging [facility] Reason Comments CARD New Patient Consult CT 06/12/23 - Co ronary Artery Calcifications: Circumflex mod; Left Anterior Descending mod; Right Coronary mild Specialty Diagnoses / Procedures Referred By Contac t Referred To Contact Cardiology Diagnoses Coronary artery calcification seen on CAT scan Procedures CONSULT TO CARDIOLOGY OFFICE/OUTPATIENT NEW HIGH MDM 60 MINUTES Ronn Wang MD [address] [place] [address] Referral ID Status Reason Start Date Expiration Date V isits Requested Visits Authorized [id number] Closed PCP Requested Referral 04/25/2023 04/24/2024 1 1 Reason Comments Medicare Wellness Exam Reason Comments Referral Request Reason Onset Date Comments Refill Request 03/01/2024 Specialty Diagnoses / Procedures Referred By Contac t Referred To Contact Diagnoses Breast cancer metastasized to axillary lymph node, left (HCC) Procedures INJECTION, ZOLEDRONIC ACID, 1 MG Abiola Rivera MD [address] [place] [address] Phone: tel: fax: Hematology/Oncology [address] [place] [address] Phone: tel: fax: Reason Onset Date Comments Population Health Navigation Outreach 10/23/2024 [employer] WORKBENCSusanne [place] [facility] Care Teams (unrecognized sec tion and content) Mop Machine Operator Relationship Specialty Start Date End Date Ronn Wang MD [address] [place] [address] PCP - General Internal Medicine 03/31/21 Charles Babb, RN [address] [facility] [place] [address] Specialty 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 Hematology/Oncology 11/18/20 Mop Machine Operator Relationship Specialty Start Date End Date Ronn Wang MD [address] [place] [address] PCP - General Internal Medicine 03/31/21 Charles Babb, RN [address] [facility] [place] [address] Specialty 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 Hematology/Oncology 11/18/20 Mop Machine Operator Relationship Specialty Start Date End Date Ronn Wang MD [address] [place] [address] PCP - General Internal Medicine 03/31/21 Charles Babb, RN [address] [facility] [place] [address] Specialty 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 Hematology/Oncology 11/18/20 Mop Machine Operator Relationship Specialty Start Date End Date Ronn Wang MD [address] [place] [address] PCP - General Internal Medicine 03/31/21 Charles Babb, RN [address] [facility] [place] [address] Specialty 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 Hematology/Oncology 11/18/20 Mop Machine Operator Relationship Specialty Start Date End Date Ronn Wang MD [address] [facility] [place] [address] PCP - General Internal Medicine 03/31/21 Charles Babb, RN [address] [facility] [place] [address] Specialty 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 Hematology/Oncology 11/18/20 Mop Machine Operator Relationship Specialty Start Date End Date Ronn Wang MD [address] [facility] [place] [address] PCP - General Internal Medicine 03/31/21 Charles Babb RN [address] [facility] [place] [address] Specialty 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 Hematology/Oncology 11/18/20 Mop Machine Operator Relationship Specialty Start Date End Date Ronn Wang MD [address] [place] [address] PCP - General Internal Medicine 03/31/21 Charles Babb RN [address] [place] [address] Specialty 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 Hematology/Oncology 11/18/20 Mop Machine Operator Relationship Specialty Start Date End Date Ronn Wang MD [address] [place] [address] PCP - General Internal Medicine 03/31/21 Charles Babb RN [address] [facility] [place] [address] Specialty 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 Hematology/Oncology 11/18/20 Mop Machine Operator Relationship Specialty Start Date End Date Ronn Wang MD [address] [facility] [place] [address] PCP - General Internal Medicine 03/31/21 Charles Babb RN [address] [facility] [place] [place] [address] Specialty 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 Hematology/Oncology 11/18/20 Mop Machine Operator Relationship Specialty Start Date End Date Ronn Wang MD [address] [facility] [place] [address] PCP - General Internal Medicine 03/31/21 Charles Babb RN [address] [place] [address] Specialty 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 Hematology/Oncology 11/18/20 Mop Machine Operator Relationship Specialty Start Date End Date Ronn Wang MD [address] [place] [address] PCP - General Internal Medicine 03/31/21 Charles Babb, RN [address] [facility] [place] [address] Specialty 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 Hematology/Oncology 11/18/20 Mop Machine Operator Relationship Specialty Start Date End Date Ronn Wang MD [address] [place] [address] PCP - General Internal Medicine 03/31/21 Charles Babb, RN [address] [facility] [place] [address] Specialty 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 Hematology/Oncology 11/18/20 Mop Machine Operator Relationship Specialty Start Date End Date Ronn Wang MD [address] [place] [address] PCP - General Internal Medicine 03/31/21 Charles Babb, RN [address] [facility] [place] [place] [address] Specialty 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 Hematology/Oncology 11/18/20 Mop Machine Operator Relationship Specialty Start Date End Date Ronn Wang MD [address] [facility] [place] [address] PCP - General Internal Medicine 03/31/21 Charles Babb, RN [address] [facility] [address] Specialty 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 Hematology/Oncology 11/18/20 Mop Machine Operator Relationship Specialty Start Date End Date Ronn Wang MD [address] [facility] [place] [address] PCP - General Internal Medicine 03/31/21 Charles Babb, DAVID [address] [place] [address] Specialty 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 Hematology/Oncology 11/18/20 Cris Simpson MD, [address] [place] [address] Physician Radiation Oncology 09/08/21 Mop Machine Operator Relationship Specialty Start Date End Date Ronn Wang MD [address] [place] [address] PCP - General Internal Medicine 03/31/21 Charles Babb, DAVID [address] [place] [address] Specialty 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 Hematology/Oncology 11/18/20 Cris Simpson MD, [address] [place] [address] Physician Radiation Oncology 09/08/21 Mop Machine Operator Relationship Specialty Start Date End Date Ronn Wang MD [address] [place] [address] PCP - General Internal Medicine 03/31/21 Charles Babb RN [address] [place] [address] Specialty 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 Hematology/Oncology 11/18/20 Cris Simpson MD, [address] [place] [address] Physician Radiation Oncology 09/08/21 Mop Machine Operator Relationship Specialty Start Date End Date Ronn Wang MD [address] [place] [address] PCP - General Internal Medicine 03/31/21 Charles Babb, DAVID [address] [place] [address] Specialty 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 Hematology/Oncology 11/18/20 Cris Simpson MD, [address] [place] [address] Physician Radiation Oncology 09/08/21 Mop Machine Operator Relationship Specialty Start Date End Date Ronn Wang MD [address] [place] [address] PCP - General Internal Medicine 03/31/21 Charles Babb RN [address] [place] [address] Specialty 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 Hematology/Oncology 11/18/20 Cris Simpson MD, [address] [place] [address] Physician Radiation Oncology 09/08/21 Mop Machine Operator Relationship Specialty Start Date End Date Ronn Wang MD [address] [place] [address] PCP - General Internal Medicine 03/31/21 Charles Babb RN [address] [place] [address] Specialty 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 Hematology/Oncology 11/18/20 Cris Simpson MD, [address] [place] [address] Physician Radiation Oncology 09/08/21 Mop Machine Operator Relationship Specialty Start Date End Date Ronn Wang MD [address] [place] [address] PCP - General Internal Medicine 03/31/21 Charles Babb RN [address] [place] [address] Specialty 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 Hematology/Oncology 11/18/20 Cris Simpson MD, [address] [place] [address] Physician Radiation Oncology 09/08/21 Mop Machine Operator Relationship Specialty Start Date End Date Rnon Wang MD [address] [place] [address] PCP - General Internal Medicine 03/31/21 Charles Babb RN [address] [place] [address] Specialty 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 Hematology/Oncology 11/18/20 Cris Simpson MD, [address] [place] [address] Physician Radiation Oncology 09/08/21 Abiola Rivera MD [address] [place] [address] Hematology/Oncology 09/16/21 Mop Machine Operator Relationship Specialty Start Date End Date Ronn Wang MD [address] [place] [address] PCP - General Internal Medicine 03/31/21 Charles Babb, DAVID [address] [place] [address] Specialty 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 Hematology/Oncology 11/18/20 Cris Simpson MD, [address] [place] [address] Physician Radiation Oncology 09/08/21 Abiola Rivera MD [address] [place] [address] Hematology/Oncology 09/16/21 Mop Machine Operator Relationship Specialty Start Date End Date Ronn Wang MD [address] [place] [address] PCP - General Internal Medicine 03/31/21 Charles Babb, RN [address] [place] [address] Specialty 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 Hematology/Oncology 11/18/20 Cris Simpson MD, [address] [place] [address] Physician Radiation Oncology 09/08/21 Abiola Rivera MD [address] [place] [address] Hematology/Oncology 09/16/21 Mop Machine Operator Relationship Specialty Start Date End Date Ronn Wang MD [address] [place] [address] PCP - General Internal Medicine 03/31/21 Charles Babb, DAVID [address] [place] [address] Specialty 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 Hematology/Oncology 11/18/20 Cris Simpson MD, [address] [place] [address] Physician Radiation Oncology 09/08/21 Abiola Rivera MD [address] [place] [address] Hematology/Oncology 09/16/21 Mop Machine Operator Relationship Specialty Start Date End Date Ronn Wang MD [address] [place] [address] PCP - General Internal Medicine 03/31/21 Charles Babb, DAVID [address] [place] [address] Specialty 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 Hematology/Oncology 11/18/20 Cris Simpson MD, [address] [place] [address] Physician Radiation Oncology 09/08/21 Abiola Rivera MD [address] [place] [address] Hematology/Oncology 09/16/21 Mop Machine Operator Relationship Specialty Start Date End Date Ronn Wang MD [address] [place] [address] PCP - General Internal Medicine 03/31/21 Charles Babb, RN [address] [place] [address] Specialty 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 Hematology/Oncology 11/18/20 Cris Simpson MD, [address] [place] [address] Physician Radiation Oncology 09/08/21 Abiola Rivera MD [address] [place] [address] Hematology/Oncology 09/16/21 Mop Machine Operator Relationship Specialty Start Date End Date Ronn Wang MD [address] [place] [address] PCP - General Internal Medicine 03/31/21 Charles Babb, RN [address] [place] [address] Specialty 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 Hematology/Oncology 11/18/20 Cris Simpson MD, [address] [place] [address] Physician Radiation Oncology 09/08/21 Abiola Rivera MD [address] [place] [address] Hematology/Oncology 09/16/21 Mop Machine Operator Relationship Specialty Start Date End Date Ronn Wang MD [address] [place] [address] PCP - General Internal Medicine 03/31/21 Charles Babb, DAVID [address] [place] [address] Specialty 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 Hematology/Oncology 11/18/20 Cris Simpson MD, [address] [place] [address] Physician Radiation Oncology 09/08/21 Abiola Rivera MD [address] [place] [address] Hematology/Oncology 09/16/21 Mop Machine Operator Relationship Specialty Start Date End Date Ronn Wang MD [address] [place] [address] PCP - General Internal Medicine 03/31/21 Charles Babb, DAVID [address] [place] [address] Specialty 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 Hematology/Oncology 11/18/20 Cris Simpson MD, [address] [place] [address] Physician Radiation Oncology 09/08/21 Abiola Rivera MD [address] [place] [address] Hematology/Oncology 09/16/21 Mop Machine Operator Relationship Specialty Start Date End Date Ronn Wang MD [address] [place] [address] PCP - General Internal Medicine 03/31/21 Charles Babb, DAVID [address] [place] [address] Specialty 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 Hematology/Oncology 11/18/20 Cris Simpson MD, [address] [place] [address] Physician Radiation Oncology 09/08/21 Abiola Rivera MD [address] [place] [address] Hematology/Oncology 09/16/21 Mop Machine Operator Relationship Specialty Start Date End Date Ronn Wang MD [address] [place] [address] PCP - General Internal Medicine 03/31/21 Charles Babb, DAVID [address] [place] [address] Specialty 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 Hematology/Oncology 11/18/20 Cris Simpson MD, [address] [place] [address] Physician Radiation Oncology 09/08/21 Abiola Rivera MD [address] [place] [address] Hematology/Oncology 09/16/21 Mop Machine Operator Relationship Specialty Start Date End Date Ronn Wang MD [address] [place] [address] PCP - General Internal Medicine 03/31/21 Charles Babb, DAVID [address] [place] [address] Specialty 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 Hematology/Oncology 11/18/20 Cris Simpson MD, [address] [place] [address] Physician Radiation Oncology 09/08/21 Abiola Rivera MD [address] [place] [address] Hematology/Oncology 09/16/21 Mop Machine Operator Relationship Specialty Start Date End Date Ronn Wang MD [address] [place] [address] PCP - General Internal Medicine 03/31/21 Charles Babb, RN [address] [place] [address] Specialty 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 Hematology/Oncology 11/18/20 Cris Simpson MD, [address] [place] [address] Physician Radiation Oncology 09/08/21 Abiola Rivera MD [address] [place] [address] Hematology/Oncology 09/16/21 Mop Machine Operator Relationship Specialty Start Date End Date Ronn Wang MD [address] [place] [address] PCP - General Internal Medicine 03/31/21 Charles Babb, RN [address] [place] [address] Specialty 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 Hematology/Oncology 11/18/20 Cris Simpson MD, [address] [place] [address] Physician Radiation Oncology 09/08/21 Abiola Rivera MD [address] [place] [address] Hematology/Oncology 09/16/21 Mop Machine Operator Relationship Specialty Start Date End Date Ronn Wang MD [address] [place] [address] PCP - General Internal Medicine 03/31/21 Charles Babb, RN [address] [place] [address] Specialty 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 Hematology/Oncology 11/18/20 Cris Simpson MD, [address] [place] [address] Physician Radiation Oncology 09/08/21 Abiola Rivera MD [address] [place] [address] Hematology/Oncology 09/16/21 Mop Machine Operator Relationship Specialty Start Date End Date Ronn Wang MD [address] [place] [address] PCP - General Internal Medicine 03/31/21 Charles Babb, RN [address] [place] [address] Specialty 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 Hematology/Oncology 11/18/20 Cris Simpson MD, [address] [place] [address] Physician Radiation Oncology 09/08/21 Abiola Rivera MD [address] [place] [address] Hematology/Oncology 09/16/21 Mop Machine Operator Relationship Specialty Start Date End Date Ronn Wang MD [address] [place] [address] PCP - General Internal Medicine 03/31/21 Charles Babb, DAVID [address] [place] [address] Specialty 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 Hematology/Oncology 11/18/20 Cris Simpson MD, [address] [place] [address] Physician Radiation Oncology 09/08/21 Abiola Rivera MD [address] [place] [address] Hematology/Oncology 09/16/21 Mop Machine Operator Relationship Specialty Start Date End Date Ronn Wang MD [address] [place] [address] PCP - General Internal Medicine 03/31/21 Charles Babb RN [address] [place] [address] Specialty 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 Hematology/Oncology 11/18/20 Cris Simpson MD, [address] [place] [address] Physician Radiation Oncology 09/08/21 Abiola Rivera MD [address] [place] [address] Hematology/Oncology 09/16/21 Mop Machine Operator Relationship Specialty Start Date End Date Ronn Wang MD [address] [place] [address] PCP - General Internal Medicine 03/31/21 Charles Babb, DAVID [address] [place] [address] Specialty 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 Hematology/Oncology 11/18/20 Cris Simpson MD, [address] [place] [address] Physician Radiation Oncology 09/08/21 Abiola Rivera MD [address] [place] [address] Hematology/Oncology 09/16/21 Mop Machine Operator Relationship Specialty Start Date End Date Ronn Wang MD [address] [place] [address] PCP - General Internal Medicine 03/31/21 Charles Babb, DAVID [address] [place] [address] Specialty 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 Hematology/Oncology 11/18/20 Cris Simpson MD, [address] [place] [address] Physician Radiation Oncology 09/08/21 Abiola Rivera MD [address] [place] [address] Hematology/Oncology 09/16/21 Mop Machine Operator Relationship Specialty Start Date End Date Ronn Wang MD [address] [place] [address] PCP - General Internal Medicine 03/31/21 Charles Babb, DAVID [address] [place] [address] Specialty 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 Hematology/Oncology 11/18/20 Cris Simpson MD, [address] [place] [address] Physician Radiation Oncology 09/08/21 Abiola Rivera MD [address] [place] [address] Hematology/Oncology 09/16/21 Mop Machine Operator Relationship Specialty Start Date End Date Ronn Wang MD [address] [place] [address] PCP - General Internal Medicine 03/31/21 Charles Babb, RN [address] [place] [address] Specialty 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 Hematology/Oncology 11/18/20 Cris Simpson MD, [address] [place] [address] Physician Radiation Oncology 09/08/21 Abiola Rivera MD [address] [place] [address] Hematology/Oncology 09/16/21 Mop Machine Operator Relationship Specialty Start Date End Date Ronn Wang MD [address] [place] [address] PCP - General Internal Medicine 03/31/21 Charles Babb, DAVID [address] [place] [address] Specialty 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 Hematology/Oncology 11/18/20 Cris Simpson MD, [address] [place] [address] Physician Radiation Oncology 09/08/21 Abiola Rivera MD [address] [place] [address] Hematology/Oncology 09/16/21 Mop Machine Operator Relationship Specialty Start Date End Date Ronn Wang MD [address] [place] [address] PCP - General Internal Medicine 03/31/21 Charles Babb, DAVID [address] [place] [address] Specialty 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 Hematology/Oncology 11/18/20 Cris Simpson MD, [address] [place] [address] Physician Radiation Oncology 09/08/21 Abiola Rivera MD [address] [place] [address] Hematology/Oncology 09/16/21 Mop Machine Operator Relationship Specialty Start Date End Date Ronn Wang MD [address] [place] [address] PCP - General Internal Medicine 03/31/21 Charles Babb, DAVID [address] [place] [address] Specialty 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 Hematology/Oncology 11/18/20 Cris Simpson MD, [address] [place] [address] Physician Radiation Oncology 09/08/21 Abiola Rivera MD [address] [place] [address] Hematology/Oncology 09/16/21 Mop Machine Operator Relationship Specialty Start Date End Date Ronn Wang MD [address] [place] [address] PCP - General Internal Medicine 03/31/21 Charles Babb, DAVID [address] [place] [address] Specialty 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 Hematology/Oncology 11/18/20 Cris Simpson MD, [address] [place] [address] Physician Radiation Oncology 09/08/21 Abiola Rivera MD [address] [place] [address] Hematology/Oncology 09/16/21 Mop Machine Operator Relationship Specialty Start Date End Date Ronn Wang MD [address] [place] [address] PCP - General Internal Medicine 03/31/21 Charles Babb, DAVID [address] [place] [address] Specialty 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 Hematology/Oncology 11/18/20 Cris Simpson MD, [address] [place] [address] Physician Radiation Oncology 09/08/21 Abiola Rivera MD [address] [place] [address] Hematology/Oncology 09/16/21 Mop Machine Operator Relationship Specialty Start Date End Date Ronn Wang MD [address] [place] [address] PCP - General Internal Medicine 03/31/21 Charles Babb RN [address] [place] [address] Specialty 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 Hematology/Oncology 11/18/20 Cris Simpson MD, [address] [place] [address] Physician Radiation Oncology 09/08/21 Salvador Carbone MD [address] [place] [address] Hematology/Oncology 09/28/22 Mop Machine Operator Relationship Specialty Start Date End Date Ronn Wang MD [address] [place] [address] PCP - General Internal Medicine 03/31/21 Charles Babb, DAVID [address] [place] [address] Specialty 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 Hematology/Oncology 11/18/20 Cris Simpson MD, [address] [place] [address] Physician Radiation Oncology 09/08/21 Salvador Carbone MD [address] [place] [address] Hematology/Oncology 09/28/22 Mop Machine Operator Relationship Specialty Start Date End Date Ronn Wang MD [address] [place] [address] PCP - General Internal Medicine 03/31/21 Charles Babb, DAVID [address] [place] [address] Specialty 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 Hematology/Oncology 11/18/20 Cris Simpson MD, [address] [place] [address] Physician Radiation Oncology 09/08/21 Salvador Carbone MD [address] [place] [address] Hematology/Oncology 09/28/22 Mop Machine Operator Relationship Specialty Start Date End Date Ronn Wang MD [address] [place] [address] PCP - General Internal Medicine 03/31/21 Charles Babb RN [address] [place] [address] Specialty 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 Hematology/Oncology 11/18/20 Cris Simpson MD, [address] [place] [address] Physician Radiation Oncology 09/08/21 Salvador Carbone MD [address] [place] [address] Hematology/Oncology 09/28/22 Mop Machine Operator Relationship Specialty Start Date End Date Ronn Wang MD [address] [place] [address] PCP - General Internal Medicine 03/31/21 Charles Babb RN [address] [place] [address] Specialty 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 Hematology/Oncology 11/18/20 Cris Simpson MD, [address] [place] [address] Physician Radiation Oncology 09/08/21 Salvador Carbone MD [address] [place] [address] Hematology/Oncology 09/28/22 Mop Machine Operator Relationship Specialty Start Date End Date Ronn Wang MD [address] [place] [address] PCP - General Internal Medicine 03/31/21 Charles Babb, DAVID [address] [place] [address] Specialty 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 Hematology/Oncology 11/18/20 Cris Simpson MD, [address] [place] [address] Physician Radiation Oncology 09/08/21 Abiola Rivera MD [address] [place] [address] Hematology/Oncology 09/16/21 09/27/22 Mop Machine Operator Relationship Specialty Start Date End Date Ronn Wang MD [address] [place] [address] PCP - General Internal Medicine 03/31/21 Charles Babb, DAVID [address] [place] [address] Specialty 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 Hematology/Oncology 11/18/20 Cris Simpson MD, [address] [place] [address] Physician Radiation Oncology 09/08/21 Salvador Carbone MD [address] [place] [address] Hematology/Oncology 09/28/22 Mop Machine Operator Relationship Specialty Start Date End Date Ronn Wang MD [address] [place] [address] PCP - General Internal Medicine 03/31/21 Charles Babb, RN [address] [place] [address] Specialty 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 Hematology/Oncology 11/18/20 Cris Simpson MD, [address] [place] [address] Physician Radiation Oncology 09/08/21 Salvador Carbone MD [address] [place] [address] Hematology/Oncology 09/28/22 Mop Machine Operator Relationship Specialty Start Date End Date Ronn Wang MD [address] [place] [address] PCP - General Internal Medicine 03/31/21 Charles Babb, DAVID [address] [place] [address] Specialty 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 Hematology/Oncology 11/18/20 Cris Simpson MD, [address] [place] [address] Physician Radiation Oncology 09/08/21 Salvador Carbone MD [address] [place] [address] Hematology/Oncology 09/28/22 Mop Machine Operator Relationship Specialty Start Date End Date Ronn Wang MD [address] [place] [address] PCP - General Internal Medicine 03/31/21 Charles Babb, DAVID [address] [place] [address] Specialty 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 Hematology/Oncology 11/18/20 Cris Simpson MD, [address] [place] [address] Physician Radiation Oncology 09/08/21 Salvador Carbone MD [address] [place] [address] Hematology/Oncology 09/28/22 Mop Machine Operator Relationship Specialty Start Date End Date Ronn Wang MD [address] [place] [address] PCP - General Internal Medicine 03/31/21 Charles Babb RN [address] [place] [address] Specialty 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 Hematology/Oncology 11/18/20 Cris Simpson MD, [address] [place] [address] Physician Radiation Oncology 09/08/21 Salvador Carbone MD [address] [place] [address] Hematology/Oncology 09/28/22 Mop Machine Operator Relationship Specialty Start Date End Date Ronn Wang MD [address] [place] [address] PCP - General Internal Medicine 03/31/21 Charles Babb, DVAID [address] [place] [address] Specialty 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 Hematology/Oncology 11/18/20 Cris Simpson MD, [address] [place] [address] Physician Radiation Oncology 09/08/21 Salvador Carbone MD [address] [place] [address] Hematology/Oncology 09/28/22 Mop Machine Operator Relationship Specialty Start Date End Date Ronn Wang MD [address] [place] [address] PCP - General Internal Medicine 03/31/21 Charles Babb RN [address] [place] [address] Specialty 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 Hematology/Oncology 11/18/20 Cris Simpson MD, [address] [place] [address] Physician Radiation Oncology 09/08/21 Salvador Carbone MD [address] [place] [address] Hematology/Oncology 09/28/22 Mop Machine Operator Relationship Specialty Start Date End Date Ronn Wang MD [address] [place] [address] PCP - General Internal Medicine 03/31/21 Charles Babb RN [address] [place] [address] Specialty 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 Hematology/Oncology 11/18/20 Cris Simpson MD [address] [place] [address] Physician Radiation Oncology 09/08/21 Salvador Carbone MD [address] [place] [address] Hematology/Oncology 09/28/22 Mop Machine Operator Relationship Specialty Start Date End Date Ronn Wang MD [address] [place] [address] PCP - General Internal Medicine 03/31/21 Charles Babb, DAVID [address] [place] [address] Specialty 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 Hematology/Oncology 11/18/20 Cris Simpson MD [address] [place] [address] Physician Radiation Oncology 09/08/21 Salvador Carbone MD [address] [place] [address] Hematology/Oncology 09/28/22 Mop Machine Operator Relationship Specialty Start Date End Date Ronn Wang MD [address] [place] [address] PCP - General Internal Medicine 03/31/21 Charles Babb, DAVID [address] [place] [address] Specialty 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 Hematology/Oncology 11/18/20 Cris Simpson MD [address] [place] [address] Physician Radiation Oncology 09/08/21 Salvador Carbone MD [address] [place] [address] Hematology/Oncology 09/28/22 Mop Machine Operator Relationship Specialty Start Date End Date Ronn Wang MD [address] [place] [address] PCP - General Internal Medicine 03/31/21 Charles Babb RN [address] [place] [address] Specialty 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 Hematology/Oncology 11/18/20 Cris Simpson MD [address] [place] [address] Physician Radiation Oncology 09/08/21 Salvador Carbone MD [address] [place] [address] Hematology/Oncology 09/28/22 Mop Machine Operator Relationship Specialty Start Date End Date Ronn Wang MD [address] [place] [address] PCP - General Internal Medicine 03/31/21 Charles Babb RN [address] [place] [address] Specialty 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 Hematology/Oncology 11/18/20 Cris Simpson MD [address] [place] [address] Physician Radiation Oncology 09/08/21 Salvador Carbone MD [address] [place] [address] Hematology/Oncology 09/28/22 Mop Machine Operator Relationship Specialty Start Date End Date Ronn Wang MD [address] [place] [address] PCP - General Internal Medicine 03/31/21 Charles Babb, DAVID [address] [place] [address] Specialty 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 Hematology/Oncology 11/18/20 Cris Simpson MD [address] [place] [address] Physician Radiation Oncology 09/08/21 Salvador Carbone MD [address] [place] [address] Hematology/Oncology 09/28/22 Mop Machine Operator Relationship Specialty Start Date End Date Ronn Wang MD [address] [place] [address] PCP - General Internal Medicine 03/31/21 Charles Babb RN [address] [place] [address] Specialty 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 Hematology/Oncology 11/18/20 Cris Simpson MD [address] [place] [address] Physician Radiation Oncology 09/08/21 Salvador Carbone MD [address] [place] [address] Hematology/Oncology 09/28/22 Mop Machine Operator Relationship Specialty Start Date End Date Ronn Wang MD [address] [place] [address] PCP - General Internal Medicine 03/31/21 Charles Babb RN [address] [place] [address] Specialty 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 Hematology/Oncology 11/18/20 Cris Simpson MD [address] [place] [address] Physician Radiation Oncology 09/08/21 Salvador Carbone MD [address] [place] [address] Hematology/Oncology 09/28/22 Mop Machine Operator Relationship Specialty Start Date End Date Ronn Wang MD [address] [place] [address] PCP - General Internal Medicine 03/31/21 Charles Babb RN [address] [place] [address] Specialty 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 Hematology/Oncology 11/18/20 Cris Simpson MD [address] [place] [address] Physician Radiation Oncology 09/08/21 Salvador Carbone MD [address] [place] [address] Hematology/Oncology 09/28/22 Steven Anaya DO [address] [place] [facility] [place] [address] Cardiology 09/13/23 Mop Machine Operator Relationship Specialty Start Date End Date Ronn Wang MD [address] [place] [address] PCP - General Internal Medicine 03/31/21 Charles Babb, DAVID [address] [place] [address] Specialty 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 Hematology/Oncology 11/18/20 Cris Simpson MD [address] [place] [address] Physician Radiation Oncology 09/08/21 Salvador Carbone MD [address] [place] [address] Hematology/Oncology 09/28/22 Steven Anaya DO [address] [place] [facility] [place] [address] Cardiology 09/13/23 Mop Machine Operator Relationship Specialty Start Date End Date Ronn Wang MD [address] [place] [address] PCP - General Internal Medicine 03/31/21 Charles Babb, DAVID [address] [place] [address] Specialty 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 Hematology/Oncology 11/18/20 Cris Simpson MD [address] [place] [address] Physician Radiation Oncology 09/08/21 Abiola Rivera MD [address] [place] [address] Hematology/Oncology 09/16/21 09/27/22 Mop Machine Operator Relationship Specialty Start Date End Date Ronn Wang MD [address] [place] [address] PCP - General Internal Medicine 03/31/21 Charles Babb, RN [address] [place] [address] Specialty 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 Hematology/Oncology 11/18/20 Cris Simpson MD [address] [place] [address] Physician Radiation Oncology 09/08/21 Abiola Rivera MD [address] [place] [address] Hematology/Oncology 09/16/21 09/27/22 Mop Machine Operator Relationship Specialty Start Date End Date Ronn Wang MD [address] [place] [address] PCP - General Internal Medicine 03/31/21 Charles Babb, DAVID [address] [place] [address] Specialty 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 Hematology/Oncology 11/18/20 Cris Simpson MD [address] [place] [address] Physician Radiation Oncology 09/08/21 Salvador Carbone MD [address] [place] [address] Hematology/Oncology 09/28/22 Steven Anaya DO [address] [place] [facility] [place] [place] [address] Cardiology 09/13/23 Mop Machine Operator Relationship Specialty Start Date End Date Ronn Wang MD [address] [place] [address] PCP - General Internal Medicine 03/31/21 Charles Babb, DAVID [address] [place] [address] Specialty 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 Hematology/Oncology 11/18/20 Cris Simpson MD [address] [place] [address] Physician Radiation Oncology 09/08/21 Salvador Carbone MD [address] [place] [address] Hematology/Oncology 09/28/22 Steven Anaya DO [address] [place] [facility] [place] [place] [address] Cardiology 09/13/23 Mop Machine Operator Relationship Specialty Start Date End Date Ronn Wang MD [address] [place] [address] PCP - General Internal Medicine 03/31/21 Charles Babb, DAVID [address] [place] [address] Specialty 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 Hematology/Oncology 11/18/20 Cris Simpson MD [address] [place] [address] Physician Radiation Oncology 09/08/21 Salvador Carbone MD [address] [place] [address] Hematology/Oncology 09/28/22 Steven Anaya DO [address] [place] [facility] [place] [place] [address] Cardiology 09/13/23 Mop Machine Operator Relationship Specialty Start Date End Date Ronn Wang MD [address] [place] [address] PCP - General Internal Medicine 03/31/21 Charles Babb RN [address] [place] [address] Specialty 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 Hematology/Oncology 11/18/20 Cris Simpson MD [address] [place] [address] Physician Radiation Oncology 09/08/21 Salvador Carbone MD [address] [place] [address] Hematology/Oncology 09/28/22 Steven Anaya DO [address] [place] [facility] [place] [address] Cardiology 09/13/23 Mop Machine Operator Relationship Specialty Start Date End Date Ronn Wang MD [address] [place] [address] PCP - General Internal Medicine 03/31/21 Charles Babb RN [address] [place] [address] Specialty 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 Hematology/Oncology 11/18/20 Cris Simpson MD [address] [place] [address] Physician Radiation Oncology 09/08/21 Salvador Carbone MD [address] [place] [address] Hematology/Oncology 09/28/22 Steven Anaya DO [address] [place] [facility] [place] [place] [address] Cardiology 09/13/23 Mop Machine Operator Relationship Specialty Start Date End Date Ronn Wang MD [address] [place] [address] PCP - General Internal Medicine 03/31/21 Charles Babb RN [address] [place] [address] Specialty 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 Hematology/Oncology 11/18/20 Cris Simpson MD [address] [place] [address] Physician Radiation Oncology 09/08/21 Salvador Carbone MD [address] [place] [address] Hematology/Oncology 09/28/22 Steven Anaya DO [address] [facility] [place] [address] Cardiology 09/13/23 Wanda Nowak, DATABASE SOFTWARE TECHNICIAN.EMS DRIVER [address] [place] [address] Manometer Technician Internal Medicine 01/29/24 Mop Machine Operator Relationship Specialty Start Date End Date Ronn Wang MD [address] [place] [address] PCP - General Internal Medicine 03/31/21 Charles Babb, DAVID [address] [place] [address] Specialty 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 Hematology/Oncology 11/18/20 Cris Simpson MD [address] [place] [address] Physician Radiation Oncology 09/08/21 Salvador Carbone MD [address] [place] [address] Hematology/Oncology 09/28/22 Steven Anaya DO [address] [place] [facility] [place] [place] [address] Cardiology 09/13/23 Wanda Nowak, DATABASE SOFTWARE TECHNICIAN.EMS DRIVER [address] [place] [address] Manometer Technician Internal Medicine 01/29/24 Mop Machine Operator Relationship Specialty Start Date End Date Ronn Wang MD [address] [place] [address] PCP - General Internal Medicine 03/31/21 Charles Babb, DAVID [address] [place] [address] Specialty 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 Hematology/Oncology 11/18/20 Cris Simpson MD [address] [place] [address] Physician Radiation Oncology 09/08/21 Salvador Carbone MD [address] [place] [address] Hematology/Oncology 09/28/22 Steven Anaya DO [address] [place], [place] [id number] Cardiology 09/13/23 Wanda Nowak, DATABASE SOFTWARE TECHNICIAN.EMS DRIVER [address] [place] [address] Manometer Technician Internal Medicine 01/29/24 Mop Machine Operator Relationship Specialty Start Date End Date Ronn Wang MD [address] [place] [address] PCP - General Internal Medicine 03/31/21 Charles Babb, DAVID [address] [place] [address] Specialty 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 Hematology/Oncology 11/18/20 Cris Simpson MD [address] [place] [address] Physician Radiation Oncology 09/08/21 Salvador Carbone MD [address] [place] [address] Hematology/Oncology 09/28/22 Wanda Nowak, DATABASE SOFTWARE TECHNICIAN.EMS DRIVER [address] [place] [address] Manometer Technician Internal Medicine 01/29/24 Mop Machine Operator Relationship Specialty Start Date End Date Ronn Wang MD [address] [place] [address] PCP - General Internal Medicine 03/31/21 Charles Babb, ADVID [address] [place] [address] Specialty 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 Hematology/Oncology 11/18/20 Cris Simpson MD [address] [place] [address] Physician Radiation Oncology 09/08/21 Salvador Carbone MD [address] [place] [address] Hematology/Oncology 09/28/22 Wanda Nowak, DATABASE SOFTWARE TECHNICIAN.EMS DRIVER [address] [place] [address] Manometer Technician Internal Medicine 01/29/24 Mop Machine Operator Relationship Specialty Start Date End Date Ronn Wang MD [address] [place] [address] PCP - General Internal Medicine 03/31/21 Charles Babb, DAVID [address] [place] [address] Specialty 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 Hematology/Oncology 11/18/20 Cris Simpson MD [address] [place] [address] Physician Radiation Oncology 09/08/21 Salvador Carbone MD [address] [place] [address] Hematology/Oncology 09/28/22 Wanda Nowak, DATABASE SOFTWARE TECHNICIAN.EMS DRIVER [address] [place] [address] Manometer Technician Internal Medicine 01/29/24 Mop Machine Operator Relationship Specialty Start Date End Date Ronn Wang MD [address] [place] [address] PCP - General Internal Medicine 03/31/21 Charles Babb RN [address] [place] [address] Specialty 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 Hematology/Oncology 11/18/20 Cris Simpson MD [address] [place] [address] Physician Radiation Oncology 09/08/21 Salvador Carbone MD [address] [place] [address] Hematology/Oncology 09/28/22 Wanda Nowak, DATABASE SOFTWARE TECHNICIAN.EMS DRIVER [address] [place] [address] Manometer Technician Internal Medicine 01/29/24 Mop Machine Operator Relationship Specialty Start Date End Date Ronn Wang MD [address] [place] [address] PCP - General Internal Medicine 03/31/21 SkinnyCharles powell RN [address] [place], [place] [address] Specialty 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 Hematology/Oncology 11/18/20 Cris Simpson MD [address] [place], [place] [address] Physician Radiation Oncology 09/08/21 Salvador Carbone MD [address] [place], [place] [address] Hematology/Oncology 09/28/22 Wanda Nowak, DATABASE SOFTWARE TECHNICIAN.[facility] [address] [place], [place] [id number] Manometer Technician Internal Medicine 01/29/24 Inactive Administered Medications - up to 3 most recent administrations Administered Medications (un recognized section and content) Medication Order MAR Action Action Date Dose Rate Site benzocaine 20% 1 [place] (TOPEX) 1 [place], TOPICAL, DIRECTED, Starting on Mon04/11/23 at 1300, Until Mon04/11/23 at 165, Dosing as directed for intraprocedural use only - Pharmaceutical Waste: Aerosol -, Intraprocedure Given by LIP 04/11/2023 12:44 PM EST 1 [place] diphenhydrAMINE 12.5-50 mg injection (BENADRYL) 12.5-50 mg, INTRAVENOUS, DIRECTED, Starting on Mon04/11/23 at 1300, Until Mon04/11/23 at 1659, DOSING DIRECTED BY PHYSICIAN FOR PROCEDURAL SEDATION ONLY, Intraprocedure Given 04/11/2023 12:58 PM EST 50 mg fentaNYL 50 mcg/mL 25-100 mcg injection (SUBLIMAZE) 25-100 mcg, INTRAVENOUS, DIRECTED, Starting on Mon04/11/23 at 1300, Until Mon04/11/23 at 1659, DOSING DIRECTED BY PHYSICIAN FOR PROCEDURAL SEDATION ONLY, Intraprocedure Given 04/11/2023 12:51 PM EST 25 mcg Given by LIP 04/11/2023 12:48 PM EST 25 mcg Given by LIP 04/11/2023 12:46 PM EST 50 mcg lactated ringers iv infusion 30 mL/hr, INTRAVENOUS, CONTINUOUS, Starting on Mon04/11/23 at 1230, Until Mon04/11/23 at 1328, Preprocedure New Bag/Syringe/Bottle 04/11/2023 11:55 AM EST 30 mL/hr 30 mL/hr midazolam (PF) 1-5 mg injection (VERSED) 1-5 mg, INTRAVENOUS, DIRECTED, Starting on Mon04/11/23 at 1300, Until Mon04/11/23 at 1659, DOSING DIRECTED BY PHYSICIAN FOR PROCEDURAL SEDATION ONLY, Intraprocedure Given 04/11/2023 12:51 PM EST 1 mg Given by LIP 04/11/2023 12:48 PM EST 1 mg Given by LIP 04/11/2023 12:46 PM EST 3 mg FOR RECORDS PERTAINING TO PATIENTS WHO ARE OR HAVE BEEN ENROLLED IN A CHEMICAL DEPENDENCY/SUBSTANCEABUSE PROGRAM, SOME INFORMATION MAY BE OMITTED. This clinical summary was aggregated from multiple sources. Caution should be exercised in using it in the provision of clinical care. This summary normalizes information from multiple sources, and as a consequence, information in this document may materially change the coding, format and clinical context of patient data. In addition, data may be omitted in some cases. CLINICAL DECISIONS SHOULD BE BASED ON THE PRIMARY CLINICAL RECORDS. [facility] [employer] [facility]. provides no warranty or guarantee of the accuracy or completeness of information in this document.
[2024-11-23 14:26] VITALS: PULSE 87
[2024-11-23 14:38] LABS: Hematocrit 41.8 % (37-47); Hemoglobin 15.0 g/dL (12.0-15.0); Immature Granulocytes Count 0.010 X10^3/uL (0.0-0.0); Mean Corp Hgb Conc 35.9 g/dL (32-36); Mean Corpuscular Volume 91.3 fL (81-99); Mean Platelet Vol. 9.0 fl (6.2-12.0); NRBC Flagged by Analyzer 0 % (0-5); Platelet Count 178 K/mm3 (150-450); RBC Distribution Width CV 12.5 % (11.6-14.6); RBC Distribution Width SD 41.7 fl (35.1-43.9); Red Blood Count 4.58 M/mm3 (4.2-5.4); White Blood Count 5.9 K/mm3 (4.4-11.0)
[2024-11-23 15:07] LABS: Troponin T High Sensitivity 10 ng/L (<=14)
[2024-11-23 15:11] LABS: Anion Gap 15 (5-15); BUN 13 mg/dL (4-19); BUN/Creat Ratio 15.1 RATIO (10-20); Calcium,Total 9.6 mg/dL (7.6-11.0); Carbon Dioxide 20.8 mmol/L (21.0-32.0); Chloride 99 mmol/L (98-108); Estimated Creatinine Clearance 50.21 ml/min (50-250); Glucose 123 mg/dL (70-99); Potassium 3.9 mmol/L (3.3-5.1)
[2024-11-23 16:11] VITALS: BP 119/78; PULSE 87; RESP 16; TEMP 36.7; O2SAT 97
== END 2024-11-23 16:00 | disposition home or self-care (01) ==
PROVIDERS: Emergency Provider Emergency Medicine; PCP Internal Medicine; Visit Provider Emergency Medicine
DX: F41.1 Generalized anxiety disorder (principal); I49.3 Ventricular premature depolarization; S60.571A Other superficial bite of hand of right hand, initial encounter; W55.01XA Bitten by cat, initial encounter; F17.210 Nicotine dependence, cigarettes, uncomplicated
CPT/HCPCS: 71045; 80048; 84443; 84484; 85025; 93005; 99284